=== PATIENT | female | born 1975 | race Caucasian/White ===

== ENCOUNTER 2016-02-12 20:59 | Emergency (ER) | payer OTHER ==
[~2016-02-12] VITALS: Ht 157.5 cm; Wt 38.5 kg
[~2016-02-12 20:59] MED LIST: CLON0.5T PO; GABA100C4 PO; LACT PO; METR-1 PO; OXYC1TAB63 PO; PROT40TA PO; PROZ20CA11 PO; REGL10TA5 PO; TRAZ50TA12 PO; VANC125C3 PO; VENTAER INH; ZOFR4TAB3 SL
[2016-02-12 21:02] VITALS: BP 115/82; PULSE 83; RESP 18; TEMP 97.8; O2SAT 100
[2016-02-12 21:16] LABS: BLOOD, URINE NEG (NEG); GLUCOSE,URINE NEG (NEG); KETONE, URINE NEG (NEG); NITRITE,URINE NEG (NEG)
[2016-02-12 21:17] LABS: URINE COLOR STRAW (YELLW/STRAW)
[2016-02-12 21:21] LABS: COMMENT (UR) CULT NOT INDICATED; CULTURE IF INDICATED CULT NOT INDICATED; RBC, URINE 0-2 /hpf (0-3); SQUAMOUS EPITHELIAL CELL URINE 0-5 /hpf (0-5); WBC, URINE 0-2 /hpf (0-5)
[2016-02-12] MEDS ORDERED: LIDOCAINE VISCOUS 2% SOLN 15 ML UDC PO ONE (21:45)
[2016-02-12] MEDS ORDERED: ALUMINUM/MAGNESIUM/SIMETH 30 ML CUP PO ONE (21:45)
[2016-02-12] MEDS ORDERED: DICYCLOMINE HCL 10 MG CAP PO ONE (21:45)
[2016-02-12 22:18] LABS: AUTOMATED NEUTROPHIL # 3.5 TH/MM3 (1.8-7.7); BASOPHIL # 0.3 TH/MM3 (0-0.2); BASOPHIL % 3.6 % (0.0-2.0); EOSINOPHIL # 0.5 TH/MM3 (0-0.4); EOSINOPHIL % 6.7 % (0.0-4.0); HEMATOCRIT 34.5 % (35.0-46.0); LYMPH % 39.5 % (9.0-44.0); LYMPHOCYTE # 3.2 TH/MM3 (1.0-4.8); MEAN CELL VOLUME 87.1 FL (80.0-100.0); MEAN CORPUSCULAR HEMOGLOBIN 29.7 PG (27.0-34.0); MONO % 7.7 % (0.0-8.0); NEUT % 42.5 % (16.0-70.0); PLATELET COUNT 1314 TH/MM3 (150-450); RED BLOOD COUNT 3.96 MIL/MM3 (4.00-5.30); RED CELL DISTRIBUTION WIDTH 13.9 % (11.6-17.2); WHITE BLOOD COUNT 8.1 TH/MM3 (4.0-11.0)
[2016-02-12 22:20] LABS: HEMO FLAGS AUTO DIFF
[2016-02-12 22:25] LABS: CHLORIDE 95 MEQ/L (98-107); POTASSIUM 3.4 MEQ/L (3.5-5.1); SODIUM (NA) 134 MEQ/L (136-145)
[2016-02-12 22:29] LABS: ANION GAP 9 MEQ/L (5-15); BICARBONATE 29.7 MEQ/L (21.0-32.0); BLOOD UREA NITROGEN 9 MG/DL (7-18)
--- NOTE | 2016-02-12 22:31 | RADHPO ---
EXAM DATE/TIME: 02/12/2016 22:20 [place] COMPARISON: CHEST SINGLE AP, February 06, 2016, 8:29. INDICATIONS : Patient states chest pains. MEDICAL HISTORY : Pancreatitis. Cirrhosis. Hiatal hernia. SURGICAL HISTORY : None. ENCOUNTER: Initial ACUITY: 1 day PAIN SCORE: 2/10 LOCATION: Bilateral chest FINDINGS: PA and lateral views of the chest demonstrate the lungs to be symmetrically aerated without evidence of mass, infiltrate or effusion. The cardiomediastinal contours are unremarkable. Osseous structure s are intact. Lungs are hyperexpanded. CONCLUSION: No evidence of acute cardiopulmonary disease. Charlie Oliveira MD on February 12, 2016 at 22:29 Board Certified Radiologist. This report was verified electronically.
[2016-02-12 22:32] LABS: ALT (GPT) 31 U/L (10-53); AST (GOT) 34 U/L (15-37); GLOMERULAR FILTRATION RATE 69 ML/MIN (>89)
[2016-02-12 22:34] LABS: PLATELET ESTIMATE SMEAR HIGH (NORMAL); PLATELET MORPHOLOGY NORMAL (NORMAL); SCAN/DIFF AUTO DIFF CONFIRMED; TOTAL BILIRUBIN ADULT 0.2 MG/DL (0.2-1.0)
[2016-02-12 22:35] LABS: ALKALINE PHOSPHATASE 98 U/L (45-117)
[2016-02-12] MEDS ORDERED: ONDANSETRON HCL 4 MG/2 ML VIAL IV PUSH ONE (23:00)
[2016-02-12 23:15] VITALS: BP 101/55; PULSE 75; RESP 18; O2SAT 97
[2016-02-12] MEDS ORDERED: CLOTR1%T TOPICAL (23:40)
[2016-02-12] MEDS ORDERED: DIFL150T PO (23:40)
--- NOTE | 2016-02-12 23:40 | PD ---
HPI Chief Complaint: Complaint Time Seen by Provider: 21:19 Travel History International Travel<30 days: No Contact w/Intl Traveler<30days: No Traveled to known affect area: No History of Present Illness HPI Patient is a 40-year-old female who comes in complaining of dysuria as well as vaginal itching. She is concerned she might have a UTI versus a yeast infection. She does have prolonged hospital course at the end of January for sepsis. She says that since she has been home she has experienced these vaginal /urinary symptoms. She denies fever or chills. She does complain of some continued chest pain and abdominal pain, which she has had since being in the hospital. She denies any shortness of breath. She is on Flagyl for C. difficile. She tried to follow-up with a primary care doctor today but had some issues with insurance. PFSH Past Medical History Hx Anticoagulant Therapy: No Anemia: Yes Arthritis: Yes Asthma: No Blood Disorders: No Bipolar Disorder: Yes Anxiety: Yes Depression: Yes Heart Rhythm Problems: No Cancer: No Cardiovascular Problems: No High Cholesterol: No Chemotherapy: No Chest Pain: No Congestive Heart Failure: No Cirrhosis: Yes (DX WITH FATTY LIVER 10-15 YEARS AGO) COPD: No Cerebrovascular Accident: No Developmental Delay: No Diabetes: No Diminished Hearing: No Endocrine: No Gastrointestinal Disorders: Yes (DELAYED GASTRIC EMPTYING, C-DIFF) GERD: Yes Genitourinary: No Hiatal Hernia: Yes Hypertension: No Immune Disorder: No Implanted Vascular Access Dvce: No Insomnia: Yes Kidney Stones: No Medical other: Yes (SEPSIS 2015) Musculoskeletal: No Neurologic: No Psychiatric: Yes Reproductive: No Respiratory: Yes (PNEUMONIA) Integumentary: Yes (07/2010- MRSA TO BILATERAL ARMS) Immunizations Current: Yes Migraines: Yes Myocardial Infarction: No Pancreatitis: Yes Radiation Therapy: No Renal Failure: No Seizures: No Sleep Apnea: No Thyroid Disease: No Ulcer: Yes Influenza Vaccination: No ?: Not LMP: ONE YEAR IUD : 3 Para: 1 Miscarriage: 1 : 1 Past Surgical History AICD: No Arteriovenous Shunt: No Cardiac Surgery: No Eye Surgery: Yes (PT STATES SHE HAD EYE SURGERY FOR "LAZY EYE" WHEN SHE WAS 3 YEARS OLD.) Hysterectomy: No Insulin Pump: No Joint Replacement: No Neurologic Surgery: No Pacemaker: No Thoracic Surgery: No Social History Alcohol Use: No (QUIT 01/11/16) Tobacco Use: Yes (QUIT 01/26/16 IS ON "THE PATCH") Substance Use: Yes (ETOH) Allergies-Medications (Allergen,Severity, Reaction): Coded Allergies: [place] (Verified Allergy, Severe, Seizures, 02/12/16) Morphine (Verified Adverse Reaction, Severe, Hives, 02/12/16) *MDRO Multi-Drug Resistant Organism (Verified Adverse Reaction, Unknown, Cleared 01/12/16, 02/12/16) MRSA (skin) - 07/2010 MRSA PCR Screens NEGATIVE - 12/10/15 & 01/12/16 Cleared per Infection Control Reported Meds & Prescriptions Reported Meds & Active Scripts Active Clotrimazole Topical (Clotrimazole) 1% Soln 1 Applic TOPICAL BID Diflucan (Fluconazole) 150 Mg Tab 150 Mg PO ONCE Flagyl (Metronidazole) 500 Mg Tab 500 Mg PO QID Ventolin Hfa 18 GM Inh (Albuterol Sulfate) 90 Mcg/Act Aer 1 Puff INH Q4H PRN Oxycodone-Acetaminophen 5-325 mg Tab 1 Tab PO Q4H PRN Vancomycin (Vancomycin HCl) 125 Mg Cap 125 Mg PO QID 14 Days Acidophilus/l-Sporogenes (Lactobacillus Acidophilus) 1 Tab Tab 1 Tab PO TID Zofran Odt (Ondansetron Odt) 4 Mg Tab 4 Mg SL Q6HR PRN Reglan (Metoclopramide HCl) 10 Mg Tab 10 Mg PO TIDAC 30 Days Gabapentin 100 Mg Cap 100 Mg PO TID Trazodone (Trazodone HCl) 50 Mg Tab 150 Mg PO HS PRN Reported Prozac (Fluoxetine HCl) 20 Mg Cap 40 Mg PO DAILY Clonazepam 0.5 Mg Tab 0.5 Mg PO TID PRN Protonix (Pantoprazole Sodium) 40 Mg Tab 40 Mg PO DAILY Review of Systems Except as stated in HPI: all other systems reviewed are Neg General / Constitutional: No: Fever, Chills HENT: No: Headaches, Lightheadedness Cardiovascular: Positive: Chest Pain or Discomfort Respiratory: No: Shortness of Breath Gastrointestinal: Positive: Abdominal Pain, No: Nausea, Vomiting Genitourinary: Positive: Dysuria, No: Flank Pain Skin: No Rash, No Change in Pigmentation Neurologic: No: Weakness, Dizziness Physical Exam Narrative GENERAL: Awake and alert in no acute distress. SKIN: Warm and dry. HEAD: Atraumatic. Normocephalic. EYES: Pupils equal and round. No scleral icterus. ENT: Mucous membranes pink and moist. NECK: Trachea midline. No JVD. CARDIOVASCULAR: Regular rate and rhythm. No murmur appreciated. RESPIRATORY: No accessory muscle use. Clear to auscultation. Breath sounds equal bilaterally. GASTROINTESTINAL: Abdomen soft, nondistended. Tender to palpation in midepigastric area. No rebound or guarding. PELVIC: Performed with female ed special education teacher. Skin surrounding the vagina has satellite lesions. No CMT. No discharge. MUSCULOSKELETAL: No obvious deformities. No clubbing. No cyanosis. No edema. NEUROLOGICAL: Awake and alert. No obvious cranial nerve deficits. Motor grossly within normal limits. Normal speech. PSYCHIATRIC: Appropriate mood and affect; insight and judgment normal. Data Data Last Documented VS Vital Signs Date Time Temp Pulse Resp B/P Pulse Ox O2 Delivery O2 Flow Rate FiO2 02/12/16 23:15 75 18 101/55 97 Room Air 02/12/16 21:02 97.8 Orders Urinalysis - C+S If Indicated (02/12/16 21:08) Complete Blood Count With Diff (02/12/16 21:33) Comprehensive Metabolic Panel (02/12/16 21:33) Electrocardiogram (02/12/16 ) Chest, Pa & Lat (02/12/16 ) Dicyclomine (Bentyl) (02/12/16 21:45) Al-Mag Hy-Si 40-40-4 Mg/Ml Liq (Mag-Al P (02/12/16 21:45) Lidocaine 2% Viscous (Xylocaine 2% Visco (02/12/16 21:45) Troponin I (02/12/16 21:33) Ondansetron Inj (Zofran Inj) (02/12/16 23:00) Labs Laboratory Tests Test 02/12/16 02/12/16 21:10 21:51 Urine Color STRAW Urine Turbidity CLEAR Urine pH 7.0 Urine Specific [place] 1.004 Urine Protein NEG mg/dL Urine Glucose (UA) NEG mg/dL Urine Ketones NEG mg/dL Urine Occult Blood NEG Urine Nitrite NEG Urine Bilirubin NEG Urine Leukocyte Esterase NEG Urine RBC 0-2 /hpf Urine WBC 0-2 /hpf Urine Squamous Epithelial 0-5 /hpf Cells Urine Bacteria NONE /hpf Microscopic Urinalysis Comment CULT NOT INDICATED White Blood Count 8.1 TH/MM3 Red Blood Count 3.96 MIL/MM3 Hemoglobin 11.7 GM/DL Hematocrit 34.5 % Mean Corpuscular Volume 87.1 FL Mean Corpuscular Hemoglobin 29.7 PG Mean Corpuscular Hemoglobin 34.0 % Concent Red Cell Distribution Width 13.9 % Platelet Count 1314 TH/MM3 Mean Platelet Volume 7.3 FL Neutrophils (%) (Auto) 42.5 % Lymphocytes (%) (Auto) 39.5 % Monocytes (%) (Auto) 7.7 % Eosinophils (%) (Auto) 6.7 % Basophils (%) (Auto) 3.6 % Neutrophils # (Auto) 3.5 TH/MM3 Lymphocytes # (Auto) 3.2 TH/MM3 Monocytes # (Auto) 0.6 TH/MM3 Eosinophils # (Auto) 0.5 TH/MM3 Basophils # (Auto) 0.3 TH/MM3 CBC Comment AUTO DIFF Differential Comment AUTO DIFF CONFIRMED Platelet Estimate HIGH Platelet Morphology Comment NORMAL Red Cell Morphology Comment NORMAL Sodium Level 134 MEQ/L Potassium Level 3.4 MEQ/L Chloride Level 95 MEQ/L Carbon Dioxide Level 29.7 MEQ/L Anion Gap 9 MEQ/L Blood Urea Nitrogen 9 MG/DL Creatinine 0.90 MG/DL Estimat Glomerular Filtration 69 ML/MIN Rate Random Glucose 94 MG/DL Calcium Level 8.8 MG/DL Total Bilirubin 0.2 MG/DL Aspartate Amino Transf 34 U/L (AST/SGOT) Alanine Aminotransferase 31 U/L (ALT/SGPT) Alkaline Phosphatase 98 U/L Troponin I LESS THAN 0.02 NG/ML Total Protein 7.8 GM/DL Albumin 3.5 GM/DL [facility] Medical Decision Making Medical Screen Exam Complete: Yes Emergency Medical Condition: Yes Medical Record Reviewed: Yes Differential Diagnosis UTI versus candidiasis versus pneumonia versus GERD Narrative Course Patient is a 40-year-old female comes in complaining of dysuria as well as vaginal irritation. Exam shows looks like vaginal yeast infection. Patient also has symptoms that have continued since her hospitalization including chest pain and abdominal pain. Labs sent show an elevated platelet count, which seems to have been going up since her hospitalization. She has no elevation in her white blood cells. Chest x-ray shows no acute abnormalities. Urinalysis is negative for UTI. Pain medicine, Zofran. She reports feeling better. We'll discharge with prescriptions for Diflucan as well as clotrimazole. Patient advised follow-up with primary care. Advised of her elevated platelet count. She is comfortable discharge at this time. Diagnosis Primary Impression: Yeast vaginitis Patient Instructions: General Instructions, Vulvovaginal Candidiasis (ED) Additional Instructions: Follow up with your doctor. Your platelets were very elevated today and it looks like your platelet count has been trending up since your admission. Follow up with your primary care doctor regarding this. Return to the ED at any time if you have any worsening symptoms. Scripts Clotrimazole Topical 1% Soln1 Applic TOPICAL BID #10 ML Ref 0 Prov:Christine Lamar MD 02/12/16 Fluconazole (Diflucan)150 Mg [id number] Mg PO ONCE #1 TAB Ref 0 Prov:Christine Lamar MD 02/12/16 Disposition: 01 DISCHARGE HOME Condition: Stable Christine Lamar MD Feb 12, 2016 23:40
--- NOTE | 2016-02-13 14:29 | EKG ---
Date Performed: 02/12/2016 Time Performed: 21:50:34 PTAGE: 40 years EKG: Sinus rhythm Normal ECG PREVIOUS TRACING : 01/14/2016 14.33 Since previous tracing, no significant change noted DOCTOR: Maribell Rivas Interpretating Date/Time 02/13/2016 14:22:50
[2016-03-27] MEDS ORDERED: TIZA2TAB PO (15:24)
== END 2016-02-12 23:55 | disposition home or self-care (01) ==
LOC: PHED 20:59
DX: B37.3 Candidiasis of vulva and vagina (principal); D64.9 Anemia, unspecified; D72.829 Elevated white blood cell count, unspecified
CPT/HCPCS: 71020; 80053; 81001; 84484; 85025; 93005; 99284; J2405

== ENCOUNTER 2016-03-18 14:50 | Emergency (ER) | payer OTHER ==
[2016-03-18] VITALS (8 sets, daily range): BP systolic 91–119; BP diastolic 57–85; PULSE 82–110; RESP 12–28; TEMP 98.4; O2SAT 92–99
[~2016-03-18] VITALS: Ht 157.5 cm; Wt 41.5 kg
[~2016-03-18 14:50] MED LIST changes: +CLOTR1%T TOPICAL; +DIFL150T PO
[2016-03-18] MEDS ORDERED: SODIUM CHLORIDE 0.9% FLUSH 5 ML FLUSH IVF PRN (15:15)
[2016-03-18] MEDS ORDERED: SODIUM CHLOR 0.9% 1000 ML INJ 1,000 ML IV ONE ×2 (15:15)
[2016-03-18 15:36] LABS: AUTOMATED NEUTROPHIL # 2.2 TH/MM3 (1.8-7.7); BASOPHIL # 0.1 TH/MM3 (0-0.2); BASOPHIL % 2.3 % (0.0-2.0); EOSINOPHIL # 0.3 TH/MM3 (0-0.4); EOSINOPHIL % 5.2 % (0.0-4.0); HEMATOCRIT 34.3 % (35.0-46.0); HEMO FLAGS DIFF FINAL; LYMPH % 48.6 % (9.0-44.0); LYMPHOCYTE # 3.1 TH/MM3 (1.0-4.8); MEAN CELL VOLUME 86.5 FL (80.0-100.0); MEAN CORPUSCULAR HEMOGLOBIN 28.9 PG (27.0-34.0); MEAN CORPUSCULAR HGB CONC 33.4 % (32.0-36.0); MONO % 8.1 % (0.0-8.0); NEUT % 35.8 % (16.0-70.0); PLATELET COUNT 478 TH/MM3 (150-450); RED BLOOD COUNT 3.97 MIL/MM3 (4.00-5.30); RED CELL DISTRIBUTION WIDTH 14.3 % (11.6-17.2); WHITE BLOOD COUNT 6.2 TH/MM3 (4.0-11.0)
[2016-03-18 16:03] LABS: ALKALINE PHOSPHATASE 68 U/L (45-117); ALT (GPT) 45 U/L (10-53); ANION GAP 9 MEQ/L (5-15); AST (GOT) 50 U/L (15-37); BETA HCG QUANT LESS THAN 1 MIU/ML (0-5); BICARBONATE 34.1 MEQ/L (21.0-32.0); BLOOD UREA NITROGEN 4 MG/DL (7-18); CHLORIDE 93 MEQ/L (98-107); GLOMERULAR FILTRATION RATE 54 ML/MIN (>89); SODIUM (NA) 136 MEQ/L (136-145); TOTAL BILIRUBIN ADULT 0.3 MG/DL (0.2-1.0)
--- NOTE | 2016-03-18 16:18 | PD ---
HPI Chief Complaint: OD/ Ingestion Time Seen by Provider: 15:00 Travel History International Travel<30 days: No Contact w/Intl Traveler<30days: No Traveled to known affect area: No History of Present Illness HPI Patient is a 40-year-old female brought to ER by her fianc for evaluation of possible drug overdose. Reports that she isn't alcoholic, has been sober for a while. Reports that he came home and found out that she "fell off of bandwagon " and began drinking again. Patient reports that she drinks 6 little bottles of miniature vodka. reports that she also took a few Flexeril pills as well for her chronic back pain. Patient told her fiance that she may have overdosed on them and taken around 10 pills. Patient unsure how many tabs she took today. Patient denies suicidal or homicidal placed at this time. Patient with no complaints. PFSH Past Medical History Hx Anticoagulant Therapy: No Anemia: Yes Arthritis: Yes Asthma: No Blood Disorders: No Bipolar Disorder: Yes Anxiety: Yes Depression: Yes Heart Rhythm Problems: No Cancer: No Cardiovascular Problems: No High Cholesterol: No Chemotherapy: No Chest Pain: No Congestive Heart Failure: No Cirrhosis: Yes (DX WITH FATTY LIVER 10-15 YEARS AGO) COPD: No Cerebrovascular Accident: No Developmental Delay: No Diabetes: No Diminished Hearing: No Endocrine: No Gastrointestinal Disorders: Yes (DELAYED GASTRIC EMPTYING, C-DIFF) GERD: Yes Genitourinary: No Hiatal Hernia: Yes Hypertension: No Immune Disorder: No Implanted Vascular Access Dvce: No Insomnia: Yes Kidney Stones: No Musculoskeletal: No Neurologic: No Psychiatric: Yes Reproductive: No Respiratory: Yes (PNEUMONIA) Integumentary: Yes (07/2010- MRSA TO BILATERAL ARMS) Immunizations Current: Yes Migraines: Yes Myocardial Infarction: No Pancreatitis: Yes Radiation Therapy: No Renal Failure: No Seizures: No Sleep Apnea: No Thyroid Disease: No Ulcer: Yes ?: Not LMP: IUD : 3 Para: 1 Miscarriage: 1 : 1 Past Surgical History AICD: No Arteriovenous Shunt: No Cardiac Surgery: No Eye Surgery: Yes (PT STATES SHE HAD EYE SURGERY FOR "LAZY EYE" WHEN SHE WAS 3 YEARS OLD.) Hysterectomy: No Insulin Pump: No Joint Replacement: No Neurologic Surgery: No Pacemaker: No Thoracic Surgery: No Social History Alcohol Use: No (QUIT 01/11/16) Tobacco Use: Yes (QUIT 01/26/16 IS ON "THE PATCH") Substance Use: Yes (ETOH) Allergies-Medications (Allergen,Severity, Reaction): Coded Allergies: [place] (Verified Allergy, Severe, Seizures, 02/12/16) Morphine (Verified Adverse Reaction, Severe, Hives, 02/12/16) *MDRO Multi-Drug Resistant Organism (Verified Adverse Reaction, Unknown, Cleared 01/12/16, 02/12/16) MRSA (skin) - 07/2010 MRSA PCR Screens NEGATIVE - 12/10/15 & 01/12/16 Cleared per Infection Control Reported Meds & Prescriptions Reported Meds & Active Scripts Active Clotrimazole Topical (Clotrimazole) 1% Soln 1 Applic TOPICAL BID Diflucan (Fluconazole) 150 Mg Tab 150 Mg PO ONCE Flagyl (Metronidazole) 500 Mg Tab 500 Mg PO QID Ventolin Hfa 18 GM Inh (Albuterol Sulfate) 90 Mcg/Act Aer 1 Puff INH Q4H PRN Oxycodone-Acetaminophen 5-325 mg Tab 1 Tab PO Q4H PRN Vancomycin (Vancomycin HCl) 125 Mg Cap 125 Mg PO QID 14 Days Acidophilus/l-Sporogenes (Lactobacillus Acidophilus) 1 Tab Tab 1 Tab PO TID Zofran Odt (Ondansetron Odt) 4 Mg Tab 4 Mg SL Q6HR PRN Reglan (Metoclopramide HCl) 10 Mg Tab 10 Mg PO TIDAC 30 Days Gabapentin 100 Mg Cap 100 Mg PO TID Trazodone (Trazodone HCl) 50 Mg Tab 150 Mg PO HS PRN Reported Prozac (Fluoxetine HCl) 20 Mg Cap 40 Mg PO DAILY Clonazepam 0.5 Mg Tab 0.5 Mg PO TID PRN Protonix (Pantoprazole Sodium) 40 Mg Tab 40 Mg PO DAILY Review of Systems General / Constitutional: No: Fever Eyes: No: Visual changes HENT: No: Headaches Cardiovascular: No: Chest Pain or Discomfort Respiratory: No: Shortness of Breath Gastrointestinal: No: Abdominal Pain Genitourinary: No: Dysuria Musculoskeletal: No: Pain Skin: No Rash Neurologic: No: Weakness Psychiatric: No: Depression, Suicidal Ideations, Homicidal Ideation Endocrine: No: Polydipsia Hematologic/Lymphatic: No: Easy Bruising Physical Exam Narrative GENERAL: nad, nontoxic SKIN: Warm and dry. HEAD: Atraumatic. Normocephalic. EYES: Pupils pinpoint. No scleral icterus. No injection or drainage. ENT: No nasal bleeding or discharge. Mucous membranes pink and moist. NECK: Trachea midline. No JVD. CARDIOVASCULAR: Regular rate and rhythm. No murmur appreciated. RESPIRATORY: No accessory muscle use. Clear to auscultation. Breath sounds equal bilaterally. GASTROINTESTINAL: Abdomen soft, non-tender, nondistended. Hepatic and splenic margins not palpable. MUSCULOSKELETAL: No obvious deformities. No clubbing. No cyanosis. No edema. NEUROLOGICAL: Awake and alert. No obvious cranial nerve deficits. Motor grossly within normal limits. Normal speech. PSYCHIATRIC: Appropriate mood and affect; insight and judgment normal. Data Data Last Documented VS Vital Signs Date Time Temp Pulse Resp B/P Pulse Ox O2 Delivery O2 Flow Rate FiO2 03/18/16 18:40 100 12 91/57 96 Room Air 03/18/16 15:30 98.4 Orders Complete Blood Count With Diff (03/18/16 15:11) Comprehensive Metabolic Panel (03/18/16 15:11) Urinalysis - C+S If Indicated (03/18/16 15:11) Electrocardiogram (03/18/16 15:11) Oximetry (03/18/16 15:11) Iv Access Insert/Monitor (03/18/16 15:11) Ecg Monitoring (03/18/16 15:11) Beta Hcg (Quant/Titer) (03/18/16 15:11) Psych Screen (03/18/16 15:11) Sodium Chloride 0.9% Flush (Ns Flush) (03/18/16 15:15) Sodium Chlor 0.9% 1000 Ml Inj (Ns 1000 M (03/18/16 15:15) Sodium Chlor 0.9% 1000 Ml Inj (Ns 1000 M (03/18/16 15:15) Alcohol (Ethanol) (03/18/16 16:23) Drug Screen, Random Urine (03/18/16 16:23) Tylenol (Acetaminophen) (03/18/16 16:23) Salicylates (Aspirin) (03/18/16 16:23) Urinary Catheter Insert/Apply (03/18/16 17:28) Potassium Cl 40 Meq/30 Ml Liq (Kcl 40 Me (03/18/16 17:45) Labs Laboratory Tests Test 03/18/16 03/18/16 15:24 16:30 White Blood Count 6.2 TH/MM3 Red Blood Count 3.97 MIL/MM3 Hemoglobin 11.5 GM/DL Hematocrit 34.3 % Mean Corpuscular Volume 86.5 FL Mean Corpuscular Hemoglobin 28.9 PG Mean Corpuscular Hemoglobin 33.4 % Concent Red Cell Distribution Width 14.3 % Platelet Count 478 TH/MM3 Mean Platelet Volume 7.2 FL Neutrophils (%) (Auto) 35.8 % Lymphocytes (%) (Auto) 48.6 % Monocytes (%) (Auto) 8.1 % Eosinophils (%) (Auto) 5.2 % Basophils (%) (Auto) 2.3 % Neutrophils # (Auto) 2.2 TH/MM3 Lymphocytes # (Auto) 3.1 TH/MM3 Monocytes # (Auto) 0.5 TH/MM3 Eosinophils # (Auto) 0.3 TH/MM3 Basophils # (Auto) 0.1 TH/MM3 CBC Comment DIFF FINAL Differential Comment Sodium Level 136 MEQ/L Potassium Level 2.7 MEQ/L Chloride Level 93 MEQ/L Carbon Dioxide Level 34.1 MEQ/L Anion Gap 9 MEQ/L Blood Urea Nitrogen 4 MG/DL Creatinine 1.10 MG/DL Estimat Glomerular Filtration 54 ML/MIN Rate Random Glucose 120 MG/DL Calcium Level 8.6 MG/DL Total Bilirubin 0.3 MG/DL Aspartate Amino Transf 50 U/L (AST/SGOT) Alanine Aminotransferase 45 U/L (ALT/SGPT) Alkaline Phosphatase 68 U/L Total Protein 7.4 GM/DL Albumin 3.9 GM/DL Human Chorionic Gonadotropin, LESS THAN 1 Quant MIU/ML Salicylates Level LESS THAN 1.7 MG/DL Acetaminophen Level LESS THAN 2.0 MCG/ML Ethyl Alcohol Level 210 MG/DL Urine Collection Type CATH Urine Color STRAW Urine Turbidity CLEAR Urine pH 7.0 Urine Specific [place] 1.004 Urine Protein NEG mg/dL Urine Glucose (UA) NEG mg/dL Urine Ketones NEG mg/dL Urine Occult Blood NEG Urine Nitrite NEG Urine Bilirubin NEG Urine Leukocyte Esterase NEG Urine Squamous Epithelial 0-5 /hpf Cells Microscopic Urinalysis Comment CATH-CULT NOT IND Urine Opiates Screen NEG Urine Barbiturates Screen NEG Urine Amphetamines Screen NEG Urine Benzodiazepines Screen NEG Urine Cocaine Screen NEG Urine Cannabinoids Screen NEG MDM Medical Decision Making Medical Screen Exam Complete: Yes Emergency Medical Condition: Yes Interpretation(s) EKG at 1518: Normal sinus rhythm at 70 bpm, QT/QTc 404/435, no acute st or t wave changes Vital Signs Date Time Temp Pulse Resp B/P Pulse Ox O2 Delivery O2 Flow Rate FiO2 03/18/16 15:00 87 14 Vital Signs Date Time Temp Pulse Resp B/P Pulse Ox O2 Delivery O2 Flow Rate FiO2 03/18/16 15:00 87 14 Differential Diagnosis Alcohol intoxication, drug overdose, bipolar disorder, electrolyte abnormalities Narrative Course Patient is a 40-year-old female who presents to emergency room with complaints of acute alcohol intoxication with possible drug overdose. Patient reports that she thinks that she may taken around 10 Flexeril tabs one hour prior to presentation to the emergency room. Patient adamantly denies SI or HI. Patient was placed on cardiac/vascular sonographer upon arrival to his room. EKG obtained. Labs as well as tox screens ordered. We'll give patient IV fluids and monitor her. RN did call poison control and reviewed case, patient will need to be observed for 6-8 hours prior to dispo of patient pt with no si/hi, once patient sober, will re-evaluate if there is need to psychiatric screening. Patient adamantly denies suicidal or homicidal evaluation. Laney reports that patient did not make any homicidal threats today. pt sleeping at this time, no distress pt signed out to care of dr stovall at change of shift Diagnosis Primary Impression: Alcohol intoxication Qualified Code: F10.120 - Alcohol intoxication, uncomplicated Additional Impressions: drug overdose Accidental drug overdose Qualified Code: T50.901A - Accidental drug overdose, initial encounter Hypokalemia Verónica Calderon DO Mar 18, 2016 16:18
[2016-03-18 16:26] LABS: POTASSIUM 2.7 MEQ/L (3.5-5.1)
[2016-03-18 17:08] LABS: AMPHETAMINE, URINE NEG (NEG); BARBITURATES, URINE NEG (NEG); COCAINE, URINE NEG (NEG)
[2016-03-18 17:09] LABS: BLOOD, URINE NEG (NEG); GLUCOSE,URINE NEG (NEG); KETONE, URINE NEG (NEG); NITRITE,URINE NEG (NEG)
[2016-03-18 17:21] LABS: METHOD OF COLLECTION CATH; URINE COLOR STRAW (YELLW/STRAW)
[2016-03-18 17:24] LABS: SQUAMOUS EPITHELIAL CELL URINE 0-5 /hpf (0-5)
[2016-03-18 17:25] LABS: COMMENT (UR) CATH-CULT NOT IND; CULTURE IF INDICATED CATH CULTURE NOT IND
[2016-03-18] MEDS ORDERED: POTASSIUM CL 40 MEQ/30 ML LIQ UDC PO ONE (17:45)
--- NOTE | 2016-03-18 20:11 | PD ---
Physical Exam Time Seen by Provider: 20:08 Narrative The patient was left to me by Dr. Calderon to observe until the patient can safely be discharged. It is now 8:09 PM and the patient is still too lethargic to discharge. We will do a magnesium level. We will try to correct the potassium level with IV potassium. We will continue to hydrate the patient. Data Data Last Documented VS Vital Signs Date Time Temp Pulse Resp B/P Pulse Ox O2 Delivery O2 Flow Rate FiO2 03/19/16 05:11 83 17 111/70 98 Room Air 03/18/16 15:30 98.4 Orders Complete Blood Count With Diff (03/18/16 15:11) Comprehensive Metabolic Panel (03/18/16 15:11) Urinalysis - C+S If Indicated (03/18/16 15:11) Electrocardiogram (03/18/16 15:11) Oximetry (03/18/16 15:11) Iv Access Insert/Monitor (03/18/16 15:11) Ecg Monitoring (03/18/16 15:11) Beta Hcg (Quant/Titer) (03/18/16 15:11) Psych Screen (03/18/16 15:11) Sodium Chloride 0.9% Flush (Ns Flush) (03/18/16 15:15) Sodium Chlor 0.9% 1000 Ml Inj (Ns 1000 M (03/18/16 15:15) Sodium Chlor 0.9% 1000 Ml Inj (Ns 1000 M (03/18/16 15:15) Alcohol (Ethanol) (03/18/16 16:23) Drug Screen, Random Urine (03/18/16 16:23) Tylenol (Acetaminophen) (03/18/16 16:23) Salicylates (Aspirin) (03/18/16 16:23) Urinary Catheter Insert/Apply (03/18/16 17:28) Potassium Cl 40 Meq/30 Ml Liq (Kcl 40 Me (03/18/16 17:45) Ns + Kcl 40 Meq Inj (Ns + Kcl 40 Meq Inj (03/18/16 20:15) Magnesium (Mg) (03/18/16 15:24) Ondansetron Inj (Zofran Inj) (03/19/16 05:15) Group A Rapid Strep Screen (03/19/16 05:06) Strep Culture (Group A) (03/19/16 05:08) Labs Laboratory Tests Test 03/18/16 03/18/16 15:24 16:30 White Blood Count 6.2 TH/MM3 Red Blood Count 3.97 MIL/MM3 Hemoglobin 11.5 GM/DL Hematocrit 34.3 % Mean Corpuscular Volume 86.5 FL Mean Corpuscular Hemoglobin 28.9 PG Mean Corpuscular Hemoglobin 33.4 % Concent Red Cell Distribution Width 14.3 % Platelet Count 478 TH/MM3 Mean Platelet Volume 7.2 FL Neutrophils (%) (Auto) 35.8 % Lymphocytes (%) (Auto) 48.6 % Monocytes (%) (Auto) 8.1 % Eosinophils (%) (Auto) 5.2 % Basophils (%) (Auto) 2.3 % Neutrophils # (Auto) 2.2 TH/MM3 Lymphocytes # (Auto) 3.1 TH/MM3 Monocytes # (Auto) 0.5 TH/MM3 Eosinophils # (Auto) 0.3 TH/MM3 Basophils # (Auto) 0.1 TH/MM3 CBC Comment DIFF FINAL Differential Comment Sodium Level 136 MEQ/L Potassium Level 2.7 MEQ/L Chloride Level 93 MEQ/L Carbon Dioxide Level 34.1 MEQ/L Anion Gap 9 MEQ/L Blood Urea Nitrogen 4 MG/DL Creatinine 1.10 MG/DL Estimat Glomerular Filtration 54 ML/MIN Rate Random Glucose 120 MG/DL Calcium Level 8.6 MG/DL Magnesium Level 2.4 MG/DL Total Bilirubin 0.3 MG/DL Aspartate Amino Transf 50 U/L (AST/SGOT) Alanine Aminotransferase 45 U/L (ALT/SGPT) Alkaline Phosphatase 68 U/L Total Protein 7.4 GM/DL Albumin 3.9 GM/DL Human Chorionic Gonadotropin, LESS THAN 1 Quant MIU/ML Salicylates Level LESS THAN 1.7 MG/DL Acetaminophen Level LESS THAN 2.0 MCG/ML Ethyl Alcohol Level 210 MG/DL Urine Collection Type CATH Urine Color STRAW Urine Turbidity CLEAR Urine pH 7.0 Urine Specific [place] 1.004 Urine Protein NEG mg/dL Urine Glucose (UA) NEG mg/dL Urine Ketones NEG mg/dL Urine Occult Blood NEG Urine Nitrite NEG Urine Bilirubin NEG Urine Leukocyte Esterase NEG Urine Squamous Epithelial 0-5 /hpf Cells Microscopic Urinalysis Comment CATH-CULT NOT IND Urine Opiates Screen NEG Urine Barbiturates Screen NEG Urine Amphetamines Screen NEG Urine Benzodiazepines Screen NEG Urine Cocaine Screen NEG Urine Cannabinoids Screen NEG [facility] Medical Record Reviewed: Yes Supervised Visit with TD: Yes Interpretation(s) The strep screen is negative for group A strep antigen. Differential Diagnosis Alcohol intoxication, Flexeril overdose, suicide attemptpatient denies Narrative Course It is now 8:09 PM and the patient is too lethargic to discharge. We will give the patient potassium, possibly magnesium, and hydrate the patient. It is now 0500 in the morning and the patient is now alert and able to walk almost normally. She can be discharged at this time. She is nauseated slightly and will be given some Zofran IV. She is to discontinue alcohol and all drugs for pain including muscle relaxants. The patient now complains of a sore throat. Her throat is slightly red and swollen and a throat culture will be done. Diagnosis Primary Impression: Alcohol intoxication Qualified Code: F10.120 - Alcohol intoxication, uncomplicated Additional Impressions: Accidental drug overdose Qualified Code: T50.901A - Accidental drug overdose, initial encounter Hypokalemia drug overdose Viral pharyngitis Ruled Out: Strep pharyngitis Disposition: DISCHARGE HOME Condition: Stable Huey Blanco MD Mar 18, 2016 20:10
[2016-03-18] MEDS: NS + KCL 40 MEQ INJ 1,000 ML IV SCH (20:19)
[2016-03-18 20:35] LABS: MAGNESIUM 2.4 MG/DL (1.5-2.5)
[2016-03-19 00:05] VITALS: BP 109/77; PULSE 83; RESP 16; O2SAT 99
[2016-03-19 03:35] VITALS: BP 100/70; PULSE 83; RESP 16; O2SAT 98
[2016-03-19] MEDS: NS + KCL 40 MEQ INJ 1,000 ML IV SCH (05:08)
[2016-03-19 05:11] VITALS: BP 111/70; PULSE 83; RESP 17; O2SAT 98
[2016-03-19] MEDS ORDERED: ONDANSETRON HCL 4 MG/2 ML VIAL IV ONE (05:15)
[2016-03-19 05:50] VITALS: BP 112/70; TEMP 97.9
--- NOTE | 2016-03-20 08:53 | EKG ---
Date Performed: 03/18/2016 Time Performed: 15:18:58 PTAGE: 40 years EKG: Sinus rhythm Normal ECG PREVIOUS TRACING : 02/12/2016 21.50 Since previous tracing, no significant change noted DOCTOR: Eugenio Caldwell Interpretating Date/Time 03/20/2016 08:52:17
[2016-03-27] MEDS ORDERED: TIZA2TAB PO (15:24)
== END 2016-03-19 05:49 | disposition home or self-care (01) ==
LOC: PHED 14:50
DX: F10.220 Alcohol dependence with intoxication, uncomplicated (principal); T50.901A Poisoning by unspecified drugs, medicaments and biological substances, accidental (unintentional), initial encounter; E87.6 Hypokalemia; R07.0 Pain in throat; Y90.7 Blood alcohol level of 200-239 mg/100 ml; F41.8 Other specified anxiety disorders; F31.9 Bipolar disorder, unspecified; K76.0 Fatty (change of) liver, not elsewhere classified
CPT/HCPCS: 51702; 80053; 80307; 80320; 81001; 83735; 84702; 85025; 87081; 87880; 93005; 96361; 96365; 96366; 96375; 99284; G0480; J2405; J3480; J7030; 80329

== ENCOUNTER 2016-03-27 14:57 | Inpatient (IN) | payer OTHER ==
[2016-03-27] VITALS (9 sets, daily range): BP systolic 81–109; BP diastolic 54–74; PULSE 60–67; RESP 14–18; TEMP 98; O2SAT 97–98
[~2016-03-27] VITALS: Ht 157.5 cm; Wt 38.4 kg
[2016-03-27] MEDS ORDERED: TIZA2TAB PO ×2 (15:24)
[2016-03-27] MEDS ORDERED: SODIUM CHLORIDE 0.9% FLUSH 5 ML FLUSH IVF PRN ×2 (15:30→22:45)
--- NOTE | 2016-03-27 15:36 | PD ---
HPI Chief Complaint: OD/ Ingestion Time Seen by Provider: 15:08 Travel History International Travel<30 days: No Contact w/Intl Traveler<30days: No Traveled to known affect area: No History of Present Illness HPI 40-year-old female with history of depression who presents the emergency department after overdose attempt. Patient had been drinking alcohol today feeling increasingly depressed and suicidal. Approximately 1 hour prior to arrival took 14 tablets of tizanidine 2 mg, and 20-30 tablets of extra strength Tylenol 500 mg in a suicide attempt. Patient feels slightly drowsy, nauseated. Has not had any episode of emesis. This is in a suicide attempt. Patient still feels depressed and suicidal. PFSH Past Medical History Hx Anticoagulant Therapy: No Anemia: Yes Arthritis: Yes Asthma: No Blood Disorders: No Bipolar Disorder: Yes Anxiety: Yes Depression: Yes Heart Rhythm Problems: No Cancer: No Cardiovascular Problems: No High Cholesterol: No Chemotherapy: No Chest Pain: No Congestive Heart Failure: No Cirrhosis: Yes (DX WITH FATTY LIVER 10-15 YEARS AGO) COPD: No Cerebrovascular Accident: No Developmental Delay: No Diabetes: No Diminished Hearing: No Endocrine: No Gastrointestinal Disorders: Yes (DELAYED GASTRIC EMPTYING,) GERD: Yes Genitourinary: No Hiatal Hernia: Yes Hypertension: No Immune Disorder: No Implanted Vascular Access Dvce: No Insomnia: Yes Kidney Stones: No Musculoskeletal: No Neurologic: No Psychiatric: Yes Reproductive: No Respiratory: Yes Integumentary: Yes (07/2010- MRSA TO BILATERAL ARMS) Immunizations Current: Yes Migraines: Yes Myocardial Infarction: No Pancreatitis: Yes Radiation Therapy: No Renal Failure: No Seizures: No Sleep Apnea: No Thyroid Disease: No Ulcer: Yes Tetanus Vaccination: < 5 Years Influenza Vaccination: No ?: Not LMP: iud : 3 Para: 1 Miscarriage: 1 : 1 Past Surgical History AICD: No Arteriovenous Shunt: No Cardiac Surgery: No Eye Surgery: Yes (PT STATES SHE HAD EYE SURGERY FOR "[employer]" WHEN SHE WAS 3 YEARS OLD.) Hysterectomy: No Insulin Pump: No Joint Replacement: No Neurologic Surgery: No Pacemaker: No Thoracic Surgery: No Social History Alcohol Use: Yes Tobacco Use: No Substance Use: Yes (ETOH) Allergies-Medications (Allergen,Severity, Reaction): Coded Allergies: [place] (Verified Allergy, Severe, Seizures, 03/27/16) Morphine (Verified Adverse Reaction, Severe, Hives, 03/27/16) *MDRO Multi-Drug Resistant Organism (Verified Adverse Reaction, Unknown, Cleared 01/12/16, 03/27/16) MRSA (skin) - 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 MRSA PCR Screens NEGATIVE - 12/10/15 & 01/12/16 Cleared per Infection Control Reported Meds & Prescriptions Reported Meds & Active Scripts Active Clotrimazole Topical (Clotrimazole) 1% Soln 1 Applic TOPICAL BID Ventolin Hfa 18 GM Inh (Albuterol Sulfate) 90 Mcg/Act Aer 1 Puff INH Q4H PRN Oxycodone-Acetaminophen 5-325 mg Tab 1 Tab PO Q4H PRN Acidophilus/l-Sporogenes (Lactobacillus Acidophilus) 1 Tab Tab 1 Tab PO TID Zofran Odt (Ondansetron Odt) 4 Mg Tab 4 Mg SL Q6HR PRN Reglan (Metoclopramide HCl) 10 Mg Tab 10 Mg PO TIDAC 30 Days Gabapentin 100 Mg Cap 100 Mg PO TID Trazodone (Trazodone HCl) 50 Mg Tab 150 Mg PO HS PRN Reported Tizanidine (Tizanidine HCl) 2 Mg Tab 2 Mg PO TID Prozac (Fluoxetine HCl) 20 Mg Cap 40 Mg PO DAILY Clonazepam 0.5 Mg Tab 0.5 Mg PO TID PRN Protonix (Pantoprazole Sodium) 40 Mg Tab 40 Mg PO DAILY Review of Systems ROS Limitations: Poor Historian Except as stated in HPI: all other systems reviewed are Neg Physical Exam Exam Limitations: Poor Historian Narrative GENERAL: Drowsy cachectic female in no acute distress SKIN: Warm and dry. HEAD:Normocephalic. EYES: Pupils equal and round. 4 mm. No scleral icterus. No injection or drainage. ENT: No nasal bleeding or discharge. Mucous membranes pink and moist. NECK: Supple CARDIOVASCULAR: Regular rate and rhythm. No murmur appreciated. RESPIRATORY: No accessory muscle use. Clear to auscultation. Breath sounds equal bilaterally. GASTROINTESTINAL: Abdomen soft, non-tender, nondistended. MUSCULOSKELETAL: No obvious deformities. No edema. NEUROLOGICAL: Awake, slightly drowsy but answers questions and follows commands without any difficulty. No obvious cranial nerve deficits. Motor grossly within normal limits. Normal speech. No clonus or rigidity PSYCHIATRIC: Press mood and affect with suicidal ideation Data Data Last Documented VS Vital Signs Date Time Temp Pulse Resp B/P Pulse Ox O2 Delivery O2 Flow Rate FiO2 03/27/16:17 66 96 Room Air 03/27/16 15:11 98.0 18 109/64 Orders Electrocardiogram (03/27/16 15:18) Complete Blood Count With Diff (03/27/16 15:18) Comprehensive Metabolic Panel (03/27/16 15:18) Iv Access Insert/Monitor (03/27/16 15:18) Ecg Monitoring (03/27/16 15:18) Oximetry (03/27/16 15:18) Psych Screen (03/27/16 15:18) Sodium Chloride 0.9% Flush (Ns Flush) (03/27/16 15:30) Drug Screen, Random Urine (03/27/16 15:18) Alcohol (Ethanol) (03/27/16 15:18) Salicylates (Aspirin) (03/27/16 15:18) Tylenol (Acetaminophen) (03/27/16 15:18) MDM Medical Decision Making Medical Screen Exam Complete: Yes Emergency Medical Condition: Yes Medical Record Reviewed: Yes Differential Diagnosis 40-year-old female with history of depression here as an overdose. Patient took up to 28 mg of tizanidine and 15 g of Tylenol approximately one hour prior to arrival. Differential includes Tylenol toxicity, benzodiazepine toxicity, alcohol intoxication, other co-ingestion, suicide attempt, depression Narrative Course Patient placed on monitor, IV established and blood obtained. A twelve-lead EKG shows sinus rhythm without notable ST abnormalities, normal intervals. QRS 80, QTC 445. CBC, CMP, aspirin, Tylenol and blood alcohol levels, urine drug screen were obtained and are pending at the time this dictation. Patient signed out to oncoming provider waiting results of same for psychiatric evaluation if medically cleared. Yoly Griffith MD Mar 27, 2016 15:36
[2016-03-27 16:01] LABS: AUTOMATED NEUTROPHIL # 3.8 TH/MM3 (1.8-7.7); BASOPHIL # 0.1 TH/MM3 (0-0.2); BASOPHIL % 1.6 % (0.0-2.0); EOSINOPHIL # 0.4 TH/MM3 (0-0.4); EOSINOPHIL % 4.7 % (0.0-4.0); HEMATOCRIT 32.4 % (35.0-46.0); HEMO FLAGS DIFF FINAL; LYMPH % 36.6 % (9.0-44.0); LYMPHOCYTE # 2.8 TH/MM3 (1.0-4.8); MEAN CELL VOLUME 86.9 FL (80.0-100.0); MEAN CORPUSCULAR HEMOGLOBIN 30.2 PG (27.0-34.0); MEAN CORPUSCULAR HGB CONC 34.7 % (32.0-36.0); NEUT % 50.1 % (16.0-70.0); PLATELET COUNT 317 TH/MM3 (150-450); RED BLOOD COUNT 3.73 MIL/MM3 (4.00-5.30); RED CELL DISTRIBUTION WIDTH 13.6 % (11.6-17.2); WHITE BLOOD COUNT 7.6 TH/MM3 (4.0-11.0)
--- NOTE | 2016-03-27 16:17 | PD ---
Physical Exam Date Seen by Provider: Mar 27, 2016 Time Seen by Provider: 16:16 Narrative The patient is a 40-year-old female who is initially evaluated by the previous physician, Dr. Griffith. Please refer to the initial history, physical, diagnostic evaluation, treatment modality plan. The patient apparently took Zanaflex and Tylenol prior to arrival, approximately 15 g of Tylenol per report. The patient had an initial Tylenol level drawn, will also need a 4 hour level Tylenol drawn at 5:30 PM. The patient did express suicidal ideation with a history of suicidal ideation. Patient was signed out of 4 PM laboratory evaluation and repeat Tylenol level pending. Patient will need psychiatric evaluation and reevaluation of her neurologic status after taking the Zanaflex prior to evaluation by psychiatry. Data Data Last Documented VS Vital Signs Date Time Temp Pulse Resp B/P Pulse Ox O2 Delivery O2 Flow Rate FiO2 03/27/16 22:36 67 16 90/58 97 Room Air 03/27/16 15:11 98.0 Orders Electrocardiogram (03/27/16 15:18) Complete Blood Count With Diff (03/27/16 15:18) Comprehensive Metabolic Panel (03/27/16 15:18) Iv Access Insert/Monitor (03/27/16 15:18) Ecg Monitoring (03/27/16 15:18) Oximetry (03/27/16 15:18) Psych Screen (03/27/16 15:18) Sodium Chloride 0.9% Flush (Ns Flush) (03/27/16 15:30) Drug Screen, Random Urine (03/27/16 15:18) Alcohol (Ethanol) (03/27/16 15:18) Salicylates (Aspirin) (03/27/16 15:18) Tylenol (Acetaminophen) (03/27/16 15:18) Tylenol (Acetaminophen) (03/27/16 17:30) Potassium Chloride Eff (K-Lyte Cl Eff) (03/27/16 16:30) Ondansetron Inj (Zofran Inj) (03/27/16 17:00) Sodium Chlor 0.9% 1000 Ml Inj (Ns 1000 M (03/27/16 18:45) Sodium Chlor 0.9% 1000 Ml Inj (Ns 1000 M (03/27/16 19:45) Sodium Chloride 0.9% Flush (Ns Flush) (03/27/16 22:45) Acetylcysteine Inj (Acetadote Inj) (03/27/16 22:45) Acetylcysteine Inj (Acetadote Inj) (03/27/16 23:45) Acetylcysteine Inj (Acetadote Inj) (03/28/16 03:45) Labs Laboratory Tests Test 03/27/16 03/27/16 15:50 21:30 White Blood Count 7.6 TH/MM3 Red Blood Count 3.73 MIL/MM3 Hemoglobin 11.3 GM/DL Hematocrit 32.4 % Mean Corpuscular Volume 86.9 FL Mean Corpuscular Hemoglobin 30.2 PG Mean Corpuscular Hemoglobin 34.7 % Concent Red Cell Distribution Width 13.6 % Platelet Count 317 TH/MM3 Mean Platelet Volume 7.3 FL Neutrophils (%) (Auto) 50.1 % Lymphocytes (%) (Auto) 36.6 % Monocytes (%) (Auto) 7.0 % Eosinophils (%) (Auto) 4.7 % Basophils (%) (Auto) 1.6 % Neutrophils # (Auto) 3.8 TH/MM3 Lymphocytes # (Auto) 2.8 TH/MM3 Monocytes # (Auto) 0.5 TH/MM3 Eosinophils # (Auto) 0.4 TH/MM3 Basophils # (Auto) 0.1 TH/MM3 CBC Comment DIFF FINAL Differential Comment Sodium Level 137 MEQ/L Potassium Level 2.6 MEQ/L Chloride Level 98 MEQ/L Carbon Dioxide Level 27.8 MEQ/L Anion Gap 11 MEQ/L Blood Urea Nitrogen 5 MG/DL Creatinine 0.99 MG/DL Estimat Glomerular Filtration 62 ML/MIN Rate Random Glucose 119 MG/DL Calcium Level 8.0 MG/DL Total Bilirubin 0.4 MG/DL Aspartate Amino Transf 40 U/L (AST/SGOT) Alanine Aminotransferase 36 U/L (ALT/SGPT) Alkaline Phosphatase 65 U/L Total Protein 6.7 GM/DL Albumin 3.6 GM/DL Salicylates Level LESS THAN 1.7 MG/DL Acetaminophen Level 16.9 MCG/ML 243.1 MCG/ML Ethyl Alcohol Level 132 MG/DL [facility] Medical Record Reviewed: Yes Supervised Visit with TD: No Interpretation(s) Laboratory Tests Test 03/27/16 03/27/16 15:50 21:30 White Blood Count 7.6 TH/MM3 Red Blood Count 3.73 MIL/MM3 Hemoglobin 11.3 GM/DL Hematocrit 32.4 % Mean Corpuscular Volume 86.9 FL Mean Corpuscular Hemoglobin 30.2 PG Mean Corpuscular Hemoglobin 34.7 % Concent Red Cell Distribution Width 13.6 % Platelet Count 317 TH/MM3 Mean Platelet Volume 7.3 FL Neutrophils (%) (Auto) 50.1 % Lymphocytes (%) (Auto) 36.6 % Monocytes (%) (Auto) 7.0 % Eosinophils (%) (Auto) 4.7 % Basophils (%) (Auto) 1.6 % Neutrophils # (Auto) 3.8 TH/MM3 Lymphocytes # (Auto) 2.8 TH/MM3 Monocytes # (Auto) 0.5 TH/MM3 Eosinophils # (Auto) 0.4 TH/MM3 Basophils # (Auto) 0.1 TH/MM3 CBC Comment DIFF FINAL Differential Comment Sodium Level 137 MEQ/L Potassium Level 2.6 MEQ/L Chloride Level 98 MEQ/L Carbon Dioxide Level 27.8 MEQ/L Anion Gap 11 MEQ/L Blood Urea Nitrogen 5 MG/DL Creatinine 0.99 MG/DL Estimat Glomerular Filtration 62 ML/MIN Rate Random Glucose 119 MG/DL Calcium Level 8.0 MG/DL Total Bilirubin 0.4 MG/DL Aspartate Amino Transf 40 U/L (AST/SGOT) Alanine Aminotransferase 36 U/L (ALT/SGPT) Alkaline Phosphatase 65 U/L Total Protein 6.7 GM/DL Albumin 3.6 GM/DL Salicylates Level LESS THAN 1.7 MG/DL Acetaminophen Level 16.9 MCG/ML 243.1 MCG/ML Ethyl Alcohol Level 132 MG/DL Differential Diagnosis Differential diagnoses includes suicidal ideation, intentional overdose, Tylenol toxicity, Zanaflex toxicity, medication side effect, depressive disorder NOS, major depression, bipolar affective disorder, mood disorder. Narrative Course The patient was initially evaluated by the previous physician, please refer to the initial history, physical, diagnostic evaluation, and treatment modality plan. The patient was signed out at 4 PM with repeat Tylenol level pending and psychiatric evaluation pending. The patient's initial Tylenol level was 16.9. The patient was drowsy but, however, was able to be awakened and answer questions. The patient states she has a history of low blood pressure, she did have a drop in her blood pressure to systolic in the 70s, however, was not tachycardic and was arousable. The patient was administered 2 L of IV fluids, her blood pressure improved. Patient was placed under a Ler[place] act secondary to the intentional overdose in a suicide attempt. The patient's 4 hour draw was sent to [facility] however, they stated there was clotting in the tube and they were unable to perform the 4 hour Tylenol level. Therefore, it was redrawn resulting in an 8 hour level of 243, suggesting Tylenol toxicity. Therefore, the patient was immediately placed on IV acetylcysteine and the on- call costumed character entertainer was paged for admission. The patient continued to be arousable , blood pressure ranged in the 80s to 90s, but there is no tachycardia. The patient does note a history of low blood pressure. The patient was placed on maintenance fluids. The patient will be admitted. Poison control was contacted during the patient's hospital stay in the emergency department. The patient was ordered her initial acetylcysteine dose at 150 mg/kg, and the 4 hour dose of 50 mg/kg, and then a 16 hour does at 100 milligrams per kilogram. Patient will be placed and IV fluids. Critical Care Narrative Aggregate critical care time was 35 minutes. Time to perform other separately billable procedures was not included in the critical care time. My time did not include minutes spent treating any other patients simultaneously or on activities that did not directly contribute to the patient's treatment. The services I provided to this patient were to treat and/or prevent clinically significant deterioration that could result in: Liver failure, hepatic toxicity , Tylenol toxicity, end-stage liver disease, hepatorenal syndrome, . I provided critical care services requiring my management, as noted below: Chart data review, documentation time, medication orders and management, vital sign assessments/reviewing monitor data, ordering and reviewing lab tests, ordering and interpreting/reviewing x-rays and diagnostic studies, care of the patient and discussion of the patient with the admitting physicians. Physician Communication Physician Communication The on-call costumed character entertainer was paged for admission. I discussed the patient with Dr. Do who agrees with admission. Diagnosis Primary Impression: Intentional drug overdose Qualified Code: T50.902A - Intentional drug overdose, initial encounter Additional Impressions: Suicidal ideation Tylenol toxicity Qualified Code: T39.1X2A - Tylenol toxicity, intentional self-harm, initial encounter Condition: Stable Yayo Engel MD Mar 27, 2016 16:17
[2016-03-27 16:22] LABS: ALKALINE PHOSPHATASE 65 U/L (45-117); ALT (GPT) 36 U/L (10-53); ANION GAP 11 MEQ/L (5-15); AST (GOT) 40 U/L (15-37); BICARBONATE 27.8 MEQ/L (21.0-32.0); BLOOD UREA NITROGEN 5 MG/DL (7-18); CHLORIDE 98 MEQ/L (98-107); GLOMERULAR FILTRATION RATE 62 ML/MIN (>89); SODIUM (NA) 137 MEQ/L (136-145); TOTAL BILIRUBIN ADULT 0.4 MG/DL (0.2-1.0)
[2016-03-27 16:25] LABS: POTASSIUM 2.6 MEQ/L (3.5-5.1)
[2016-03-27] MEDS ORDERED: POTASSIUM CHLORIDE 25 MEQ EFFERVESCENT TAB PO ONE (16:30)
[2016-03-27] MEDS ORDERED: ONDANSETRON HCL 4 MG/2 ML VIAL IV PUSH ONE (17:00)
[2016-03-27 17:39] LABS: ACETAMINOPHEN 16.9 MCG/ML (10.0-30.0)
[2016-03-27] MEDS ORDERED: SODIUM CHLOR 0.9% 1000 ML INJ 1,000 ML IV ONE ×2 (18:45→19:45)
[2016-03-27] MEDS ORDERED: ACETYLCYSTEINE IV SCH ×4 (22:45→23:45)
[2016-03-27] MEDS ORDERED: DEXTROSE 5% IV SCH ×4 (22:45→23:45)
[2016-03-27] MEDS ORDERED: WATER IV SCH ×2 (22:45)
[2016-03-27] MEDS ORDERED: BISACODYL 10 MG SUPP RECTAL PRN (23:00)
[2016-03-27] MEDS ORDERED: MISCELLANEOUS NURSING INFORMATION XX SCH (23:00)
[2016-03-27] MEDS ORDERED: SODIUM CHLORIDE 0.9% FLUSH 5 ML FLUSH IV FLUSH PRN (23:00)
[2016-03-27] MEDS ORDERED: BISACODYL EC 5 MG TABEC PO PRN (23:00)
[2016-03-27] MEDS ORDERED: PANTOPRAZOLE SODIUM 40 MG VIAL IV SCH (23:00)
[2016-03-27] MEDS ORDERED: CHLORHEXIDINE GLUCONATE 2 % 1 PACK (2 CLOTHS) TOP PRN (23:00)
[2016-03-27] MEDS ORDERED: METOCLOPRAMIDE HCL 10 MG/2 ML VIAL IV PRN (23:00)
[2016-03-27] MEDS ORDERED: ONDANSETRON HCL 4 MG/2 ML VIAL IV PRN (23:00)
[2016-03-27] MEDS ORDERED: RESP: ALBUTEROL 2.5 MG/IPRATROPIUM 0.5 MG NEB (PRN) INH (23:00)
[2016-03-27] MEDS: SODIUM CHLOR 0.9% 1000 ML INJ 1,000 ML IV SCH (23:12)
[2016-03-27] MEDS ORDERED: WATE IV SCH ×2 (23:45)
[2016-03-27 23:53] LABS: AMPHETAMINE, URINE NEG (NEG); BARBITURATES, URINE NEG (NEG)
[2016-03-27 23:58] LABS: COCAINE, URINE NEG (NEG)
[2016-03-28] VITALS (27 sets, daily range): BP systolic 94–163; BP diastolic 59–87; PULSE 48–76; RESP 12–32; TEMP 98.3–99.2; O2SAT 97–100
[2016-03-28] MEDS ORDERED: WATE IV SCH ×2 (03:45)
[2016-03-28] MEDS ORDERED: DEXTROSE 5% IV SCH ×2 (03:45)
[2016-03-28] MEDS ORDERED: ACETYLCYSTEINE IV SCH ×2 (03:45)
[2016-03-28] MEDS ORDERED: CHLORHEXIDINE GLUCONATE 2 % 1 PACK (2 CLOTHS) TOP SCH (04:00)
[2016-03-28 04:36] LABS: AUTOMATED NEUTROPHIL # 3.1 TH/MM3 (1.8-7.7); BASOPHIL # 0.1 TH/MM3 (0-0.2); BASOPHIL % 1.3 % (0.0-2.0); EOSINOPHIL # 0.5 TH/MM3 (0-0.4); EOSINOPHIL % 6.4 % (0.0-4.0); HEMATOCRIT 32.6 % (35.0-46.0); HEMO FLAGS DIFF FINAL; LYMPH % 37.9 % (9.0-44.0); LYMPHOCYTE # 2.7 TH/MM3 (1.0-4.8); MEAN CELL VOLUME 87.4 FL (80.0-100.0); MEAN CORPUSCULAR HEMOGLOBIN 29.1 PG (27.0-34.0); MEAN CORPUSCULAR HGB CONC 33.3 % (32.0-36.0); MONO % 10.8 % (0.0-8.0); NEUT % 43.6 % (16.0-70.0); PLATELET COUNT 286 TH/MM3 (150-450); RED BLOOD COUNT 3.73 MIL/MM3 (4.00-5.30); RED CELL DISTRIBUTION WIDTH 13.7 % (11.6-17.2); WHITE BLOOD COUNT 7.2 TH/MM3 (4.0-11.0)
[2016-03-28 04:43] LABS: INTERNATIONAL NORMALIZED RATIO 1.3 RATIO; PROTHROMBIN TIME - PATIENT 14.3 SEC (9.8-11.6)
[2016-03-28 05:22] LABS: ALKALINE PHOSPHATASE 52 U/L (45-117); ALT (GPT) 34 U/L (10-53); ANION GAP 11 MEQ/L (5-15); AST (GOT) 24 U/L (15-37); BICARBONATE 24.1 MEQ/L (21.0-32.0); BLOOD UREA NITROGEN 4 MG/DL (7-18); CHLORIDE 105 MEQ/L (98-107); GLOMERULAR FILTRATION RATE 81 ML/MIN (>89); MAGNESIUM 1.8 MG/DL (1.5-2.5); POTASSIUM 4.2 MEQ/L (3.5-5.1); SODIUM (NA) 140 MEQ/L (136-145); TOTAL BILIRUBIN ADULT 0.4 MG/DL (0.2-1.0)
--- NOTE | 2016-03-28 08:51 | HHI.HP ---
HPI Service Critical Care Medicine Primary Care Physician Shayne John M.D. Admission Diagnosis Tylenol toxicity, intentional overdose, Leroy act, suicidal ideation Diagnosis: Travel History International Travel<30 Days: No Contact w/Intl Traveler <30 Da: No Traveled to Known Affected Are: No History of Present Illness 40-year-old female with history of depression who presents the emergency department after overdose attempt with ETOH and Tylenol. Patient had been drinking alcohol today feeling increasingly depressed and suicidal. Approximately 1 hour prior to arrival to ED took 14 tablets of tizanidine 2 mg , and 20-30 tablets of extra strength Tylenol 500 mg in a suicide attempt. Patient feels slightly drowsy, nauseated. Has not had any episode of emesis. This is a suicide attempt. Patient still feels depressed and suicidal in the ED. Poison control center was notified, acetylcysteine protocol was initiated. The patient was Leroy acted .Critical care medicine was consulted for management and treatment. History PFSH Past Medical History Hx Anticoagulant Therapy: No Anemia: Yes Arthritis: Yes Asthma: No Blood Disorders: No Bipolar Disorder: Yes Anxiety: Yes Depression: Yes Heart Rhythm Problems: No Cancer: No Cardiovascular Problems: No High Cholesterol: No Chemotherapy: No Chest Pain: No Congestive Heart Failure: No Cirrhosis: Yes (DX WITH FATTY LIVER 10-15 YEARS AGO) COPD: No Cerebrovascular Accident: No Developmental Delay: No Diabetes: No Diminished Hearing: No Endocrine: No Gastrointestinal Disorders: Yes (DELAYED GASTRIC EMPTYING,) GERD: Yes Genitourinary: No Hiatal Hernia: Yes Hypertension: No Immune Disorder: No Implanted Vascular Access Dvce: No Insomnia: Yes Kidney Stones: No Musculoskeletal: No Neurologic: No Psychiatric: Yes Reproductive: No Respiratory: Yes Integumentary: Yes (07/2010- MRSA TO BILATERAL ARMS) Immunizations Current: Yes Migraines: Yes Myocardial Infarction: No Pancreatitis: Yes Radiation Therapy: No Renal Failure: No Seizures: No Sleep Apnea: No Thyroid Disease: No Ulcer: Yes Tetanus Vaccination: < 5 Years Influenza Vaccination: No ?: Not LMP: iud : 3 Para: 1 Miscarriage: 1 : 1 Past Surgical History AICD: No Arteriovenous Shunt: No Cardiac Surgery: No Eye Surgery: Yes (PT STATES SHE HAD EYE SURGERY FOR "[employer] [facility]" WHEN SHE WAS 3 YEARS OLD.) Hysterectomy: No Insulin Pump: No Joint Replacement: No Neurologic Surgery: No Pacemaker: No Thoracic Surgery: No Social History Alcohol Use: Yes Tobacco Use: No Substance Use: Yes (ETOH) Allergies-Medications Allergies-Medications (Allergen,Severity, Reaction): Coded Allergies: [place] (Verified Allergy, Severe, Seizures, 03/27/16) Morphine (Verified Adverse Reaction, Severe, Hives, 03/27/16) *MDRO Multi-Drug Resistant Organism (Verified Adverse Reaction, Unknown, Cleared 01/12/16, 03/27/16) MRSA (skin) - 07/2010 MRSA PCR Screens NEGATIVE - 12/10/15 & 01/12/16 Cleared per Infection Control Reported Meds & Prescriptions Reported Meds & Active Scripts Active Clotrimazole Topical (Clotrimazole) 1% Soln 1 Applic TOPICAL BID Ventolin Hfa 18 GM Inh (Albuterol Sulfate) 90 Mcg/Act Aer 1 Puff INH Q4H PRN Oxycodone-Acetaminophen 5-325 mg Tab 1 Tab PO Q4H PRN Acidophilus/l-Sporogenes (Lactobacillus Acidophilus) 1 Tab Tab 1 Tab PO TID Zofran Odt (Ondansetron Odt) 4 Mg Tab 4 Mg SL Q6HR PRN Reglan (Metoclopramide HCl) 10 Mg Tab 10 Mg PO TIDAC 30 Days Gabapentin 100 Mg Cap 100 Mg PO TID Trazodone (Trazodone HCl) 50 Mg Tab 150 Mg PO HS PRN Reported Tizanidine (Tizanidine HCl) 2 Mg Tab 2 Mg PO TID Prozac (Fluoxetine HCl) 20 Mg Cap 40 Mg PO DAILY Clonazepam 0.5 Mg Tab 0.5 Mg PO TID PRN Protonix (Pantoprazole Sodium) 40 Mg Tab 40 Mg PO DAILY ROS Review of Systems ROS Limitations: Poor Historian Except as stated in HPI: all other systems reviewed are Neg Physical Exam Vital Signs Vital Signs Date Time Temp Pulse Resp B/P Pulse Ox O2 Delivery O2 Flow Rate FiO2 03/28/16 07:25 63 16 119/76 97 21 Manual Cuff/Auscultation 03/28/16 05:56 64 16 111/77 98 Room Air 03/28/16 04:00 61 16 102/62 98 Room Air 03/28/16 01:59 68 16 112/67 98 Room Air 03/28/16 00:03 67 16 94/59 98 Room Air 03/27/16 22:36 67 16 90/58 97 Room Air 03/27/16 21:05 65 16 90/55 97 Room Air 03/27/16 20:00 65 16 96/60 97 Room Air 03/27/16 19:10 64 16 97 Room Air 03/27/16 18:46 64 14 84/62 98 Room Air Automatic Cuff 03/27/16 18:30 64 14 81/54 97 Room Air 03/27/16 17:15 60 14 109/74 98 Room Air 03/27/16 16:20 60 14 103/70 97 Room Air 03/27/16 15:54 14 98 Room Air 03/27/16 15:17 66 96 Room Air 03/27/16 15:11 98.0 65 18 109/64 97 Physical Exam GENERAL: This is a well-developed, well-nourished female lying in position , crying. SKIN: Warm and dry. HEAD: Atraumatic. Normocephalic. EYES: Pupils equal and round. No scleral icterus. No injection or drainage. ENT: No nasal bleeding or discharge. Mucous membranes pink and moist. NECK: Trachea midline. No JVD. CARDIOVASCULAR: Normal rate, regular rhythm. RESPIRATORY: No accessory muscle use. Clear to auscultation. Breath sounds equal bilaterally. GASTROINTESTINAL: Abdomen soft, non-tender, nondistended. No guarding. MUSCULOSKELETAL: Extremities without clubbing, cyanosis, or edema. No obvious deformities. NEUROLOGICAL: Awake and alert. RASS 0. No gross focal/sensory deficits. Follows commands in all 4 extremities. Laboratory Laboratory Tests Test 03/27/16 03/27/16 03/27/16 03/28/16 15:50 21:30 23:20 04:10 White Blood Count 7.6 7.2 Red Blood Count 3.73 3.73 Hemoglobin 11.3 10.9 Hematocrit 32.4 32.6 Mean Corpuscular Volume 86.9 87.4 Mean Corpuscular Hemoglobin 30.2 29.1 Mean Corpuscular Hemoglobin 34.7 33.3 Concent Red Cell Distribution Width 13.6 13.7 Platelet Count 317 286 Mean Platelet Volume 7.3 7.4 Neutrophils (%) (Auto) 50.1 43.6 Lymphocytes (%) (Auto) 36.6 37.9 Monocytes (%) (Auto) 7.0 10.8 Eosinophils (%) (Auto) 4.7 6.4 Basophils (%) (Auto) 1.6 1.3 Neutrophils # (Auto) 3.8 3.1 Lymphocytes # (Auto) 2.8 2.7 Monocytes # (Auto) 0.5 0.8 Eosinophils # (Auto) 0.4 0.5 Basophils # (Auto) 0.1 0.1 CBC Comment DIFF FINAL DIFF FINAL Differential Comment Sodium Level 137 140 Potassium Level 2.6 4.2 Chloride Level 98 105 Carbon Dioxide Level 27.8 24.1 Anion Gap 11 11 Blood Urea Nitrogen 5 4 Creatinine 0.99 0.78 Estimat Glomerular Filtration 62 81 Rate Random Glucose 119 100 Calcium Level 8.0 7.7 Total Bilirubin 0.4 0.4 Aspartate Amino Transf 40 24 (AST/SGOT) Alanine Aminotransferase 36 34 (ALT/SGPT) Alkaline Phosphatase 65 52 Total Protein 6.7 5.5 Albumin 3.6 2.8 Salicylates Level LESS THAN 1.7 Acetaminophen Level 16.9 243.1 126.4 Ethyl Alcohol Level 132 Urine Opiates Screen NEG Urine Barbiturates Screen NEG Urine Amphetamines Screen NEG Urine Benzodiazepines Screen NEG Urine Cocaine Screen NEG Urine Cannabinoids Screen NEG Prothrombin Time 14.3 Prothromb Time International 1.3 Ratio Phosphorus Level 3.1 Magnesium Level 1.8 Result Diagram: 03/28/1640903/28/16409 Assessment and Plan Assessment and Plan Neurologic: Bipolar disorder Suicidal ideations Lethargy secondary to acetaminophen toxicity Overdose tizanidine, Tylenol Alcohol Use Disorder Leroy act Psychiatry consult Neurochecks per ICU protocol Contact MD if lethargy persists, may need Narcan Poison control contacted for [id number] obtain LFTs at 1800 to determine continuation or cessation of acetylcysteine infusion Monitor for signs of alcohol withdrawal Respiratory: No acute issues Maintain O2 sat greater than 92% Administer O2 via nasal cannula, if needed Maintain head of bed 30 Cardiovascular: Normotensive Maintain MAP greater than 65, currently 6990 Telemetry Obtain F/U EKG now and in 12 hrs 1800 Renal: No Mirza, patient continues bedpan, until lethargy resolved, then may use bedside commode -- Strict I/Os FEN/GI: Nausea Elevated liver enzymes secondary to acetaminophen toxicity Zofran when necessary for nausea Maintain nothing by mouth status Every 4 hour Tylenol levels, acetylcysteine infusing 100/mg/kg (4100mg) over 16 hours Heme/ID: Monitor CBC Monitor for signs of fever and infection Endocrine: Obtain thyroid panel Euglycemic -- SSI Prophylaxis: GI Prophylaxis Protonix IV DVT Prophylaxis -- SCDs No pharmacological DVT prophylaxis secondary to hepatic injury Lines: Peripheral IVs 2. Central line if indicated Dispo: This patient remains critically ill with one or more organ systems which are or may become a threat to life. I have spent in excess of 60 minutes discontinuously in the care and management of this patient. This time is exclusive of procedures, and includes, but is not limited to, evaluation of the patient, review of the medical record, discussions with family, consultants, nursing staff, or respiratory therapy, and documentation in the medical record. Code Status Full Discussed Condition With [employer] DEVELOPER Shasta Umanzor MD Mar 28, 2016 08:51
[2016-03-28] MEDS ORDERED: MAGNESIUM SULFATE INJ 2 GM in SODIUM CHLORIDE 0.9% INJ 96 ML IV PRN (09:00)
[2016-03-28] MEDS ORDERED: CHLORHEXIDINE GLUCONATE 2 % 1 PACK (2 CLOTHS) TOP PRN (09:00)
[2016-03-28] MEDS ORDERED: DEXTROSE 50% IN WATER 50 ML VIAL(D50) IV PUSH PRN (09:00)
[2016-03-28] MEDS ORDERED: RESP: ALBUTEROL 2.5 MG/IPRATROPIUM 0.5 MG NEB (PRN) INH (09:00)
[2016-03-28] MEDS ORDERED: POTASSIUM PHOSPHATE MONOBASIC 500 MG TAB PO/TUBE PRN (09:00)
[2016-03-28] MEDS ORDERED: POTASSIUM CHLOR 40 MEQ PREMIX 100 ML IV PRN ×2 (09:00)
[2016-03-28] MEDS ORDERED: MAGNESIUM OXIDE 400 MG TAB PO PRN (09:00)
[2016-03-28] MEDS ORDERED: SODIUM PHOSPHATE INJ 30 MMOL in SODIUM CHLOR 0.9% 250 ML INJ 240 ML IV PRN (09:00)
[2016-03-28] MEDS ORDERED: POTASSIUM CHLOR 20 MEQ PREMIX 100 ML IV PRN ×2 (09:00)
[2016-03-28] MEDS ORDERED: SODIUM CHLORIDE 0.9% FLUSH 5 ML FLUSH IV FLUSH SCH (09:00)
[2016-03-28] MEDS ORDERED: GLUCAGON 1 MG/ML VIAL OTHER PRN (09:00)
[2016-03-28] MEDS ORDERED: POTASSIUM PHOSPHATE INJ 30 MMOL in SODIUM CHLOR 0.9% 250 ML INJ 250 ML IV PRN (09:00)
[2016-03-28] MEDS ORDERED: NALOXONE HCL 0.4 MG/ML AMP IV PRN (09:00)
[2016-03-28] MEDS ORDERED: MAGNESIUM SULFATE INJ 4 GM in SODIUM CHLORIDE 0.9% INJ 92 ML IV PRN (09:00)
[2016-03-28] MEDS ORDERED: SODIUM CHLORIDE 0.9% FLUSH 5 ML FLUSH IV FLUSH PRN (09:00)
[2016-03-28] MEDS ORDERED: MISCELLANEOUS NURSING INFORMATION XX SCH (09:00)
[2016-03-28] MEDS ORDERED: ONDANSETRON HCL 4 MG/2 ML VIAL IV PRN (09:00)
[2016-03-28] MEDS ORDERED: POTASSIUM CL 40 MEQ/30 ML LIQ UDC PO/TUBE PRN ×2 (09:00)
[2016-03-28] MEDS ORDERED: POTASSIUM PHOSPHATE MONOBASIC 500 MG TAB PO PRN (09:00)
[2016-03-28 10:19] LABS: BETA HCG QUANT LESS THAN 1 MIU/ML (0-5)
[2016-03-28] MEDS: INSULIN NovoLIN REGULAR SUPPLEMENTAL SCALE SQ SCH ×3 (11:00→21:00)
[2016-03-28] MEDS: SODIUM CHLORIDE 0.9% FLUSH 5 ML FLUSH IV FLUSH SCH ×2 (11:46→21:00)
[2016-03-28] MEDS: PANTOPRAZOLE SODIUM 40 MG VIAL IV SCH (11:46)
[2016-03-28] MEDS: SODIUM CHLOR 0.9% 1000 ML INJ 1,000 ML IV SCH ×3 (11:48→21:54)
[2016-03-28 12:39] LABS: FREE T4 1.05 NG/DL (0.76-1.46)
[2016-03-28] MEDS ORDERED: MIDAZOLAM HCL 2 MG/2 ML VIAL IV PUSH ONE (15:00)
--- NOTE | 2016-03-28 15:42 | EKG ---
Date Performed: 03/27/2016 Time Performed: 15:27:48 PTAGE: 40 years EKG: Sinus rhythm Since previous tracing, no significant change noted Normal ECG PREVIOUS TRACING : 03/18/2016 15.18 DOCTOR: Eugenio Caldwell Interpretating Date/Time 03/28/2016 15:40:35
--- NOTE | 2016-03-28 17:37 | PD.CONS ---
Provisional Diagnosis Admission Date Mar 27, 2016 at 22:58 Amma I. Alcohol abuse with intoxication him a alcohol induced mood disorder History of Present Illness Service Psychiatry Consult Requested By Attending Alondra Reason for Consult Leroy act Primary Care Physician Shayne John M.D. [facility] Patient is a 40-year-old white female comes here under a Leroy act by [facility] dated March 27, 2029 p.m. stating patient took alcohol Zanaflex and Tylenol in an attempt at suicide. Patient seen screened in the ED patient with blood alcohol level of 132 with significantly elevated Tylenol levels. Patient being treated with this acetylcholine at the present time. Patient seen in her room with RN present throughout session patient alert oriented thin slender female calm cooperative though minimizing her use of alcohol stating she relapsed a week ago for no significant reason she states she does not remember taking the overdose thinking that was not a suicide attempt though the amount of a variety of drugs taken somewhat contradict that. Patient is a long history of alcohol abuse with multiple documentations in the EMR. Has had overdoses in the past. Has had psychiatric assistance. At the present time patient does meet criteria for continuation of the Leroy act for possible transfer to the inpatient psychiatric unit at [facility] when she is medically cleared Review of Systems Except as stated in HPI: all other systems reviewed are Neg Past Family Social History Coded Allergies: [place] (Verified Allergy, Severe, Seizures, 03/27/16) Morphine (Verified Adverse Reaction, Severe, Hives, 03/27/16) *MDRO Multi-Drug Resistant Organism (Verified Adverse Reaction, Unknown, Cleared 01/12/16, 03/27/16) MRSA (skin) - 07/2010 MRSA PCR Screens NEGATIVE - 12/10/15 & 01/12/16 Cleared per Infection Control Past Medical History Long history alcohol abuse please see med surge assessments Active Scripts Clotrimazole Topical 1% Soln1 Applic TOPICAL BID #10 ML Ref 0 Prov:Christine Lamar MD 02/12/16 Albuterol 18 GM Inh (Ventolin Hfa 18 GM Inh)90 Mcg/Act Aer1 Puff INH Q4H PRN ( SHORTNESS OF BREATH) #1 INHALER Ref 0 Prov:Salinas Yousif MD 02/06/16 Oxycodone-Acetaminophen 5-325 mg Tab1 Tab PO Q4H PRN (PAIN) #30 TAB Ref 0 Prov:Salinas Yousif MD 02/06/16 Lactobacillus Acidophilus (Acidophilus/l-Sporogenes)1 Tab Tab1 Tab PO TID #90 TAB Ref 1 Prov:Salinas Yousif MD 02/06/16 Ondansetron Odt (Zofran Odt)4 Mg Tab4 Mg SL Q6HR PRN (Nausea/Vomiting) #30 TAB Ref 0 Prov:Salinas Yousif MD 02/06/16 Metoclopramide (Reglan)10 Mg Tab10 Mg PO TIDAC 30 Days Ref 0 Prov:Mervat Max DO 01/23/16 Gabapentin 100 Mg [id number] Mg PO TID #90 CAP Prov:Izzy Kidd MD 01/20/16 Trazodone 50 Mg [id number] Mg PO HS PRN (INSOMNIA) #90 TAB Prov:Izzy Kidd MD 12/16/15 Reported Medications Tizanidine 2 Mg Tab2 Mg PO TID Ref 0 03/27/16 Fluoxetine (Prozac)20 Mg Cap40 Mg PO DAILY #30 CAP Ref 0 01/02/16 Clonazepam 0.5 Mg Tab0.5 Mg PO TID PRN (ANXIETY) #90 TAB Ref 0 12/10/15 Pantoprazole (Protonix)40 Mg Tab40 Mg PO DAILY #30 TAB Ref 0 12/09/15 Discontinued Scripts Fluconazole (Diflucan)150 Mg Grj505 Mg PO ONCE #1 TAB Ref 0 Prov:Christine Lamar MD 02/12/16 Metronidazole (Flagyl)500 Mg [id number] Mg PO QID #56 TAB Ref 0 Prov:Salinas Yousif MD 02/07/16 Vancomycin 125 Mg Avr556 Mg PO QID 14 Days Ref 0 Prov:Salinas Yousif MD 02/06/16 Current Medications Medications (Trade) Dose Ordered Sig/Susanna Route Start Time Stop Time Status Last Admin Acetylcysteine 4100 mg/Dextrose 1,020.5 ml @ 62.5 mls/ hr ONCE IV 03/28/16 03:45 03/28/16 19:44 03/28/16 04:14 (NS 1000 ml Inj) 1,000 ml @ 125 mls/hr Q8H IV 03/27/16 22:55 03/28/16 11:48 (Reglan Inj) 10 mg Q6H PRN IV 03/27/16 23:00 (Dulcolax Ec) 10 mg DAILY PRN PO 03/27/16 23:00 (Dulcolax Supp) 10 mg DAILY PRN RECTAL 03/27/16 23:00 (NS Flush) 2 ml UNSCH PRN IV FLUSH 03/28/16 09:00 (NS Flush) 2 ml BID IV FLUSH 03/28/16 09:00 03/28/16 11:46 (Protonix Inj) 40 mg DAILY IV 03/28/16 09:00 03/28/16 11:46 (Zofran Inj) 4 mg Q6H PRN IV 03/28/16 09:00 (Narcan Inj) 0.4 mg Q3M PRN IV 03/28/16 09:00 Miscellaneous Information 1 Q361D XX 03/28/16 09:00 (Chlorhexidine 2% Cloth) 3 pack Taper DAILY@04 TOP 03/29/16 04:00 03/25/17 03:59 (Chlorhexidine 2% Cloth) 3 pack UNSCH PRN TOP 03/28/16 09:00 (D50w (Vial) Inj) 25 ml UNSCH PRN IV PUSH 03/28/16 09:00 Glucagon 1 mg 1 mg UNSCH PRN OTHER 03/28/16 09:00 Potassium Chloride 100 ml @ 50 mls/hr Q2H PRN IV 03/28/16 09:00 (KCl 20 Meq Premix Inj) 100 ml @ 50 mls/hr Q2H PRN IV 03/28/16 09:00 Potassium Chloride 40 meq 40 meq UNSCH PRN PO/TUBE 03/28/16 09:00 Potassium Chloride 100 ml @ 25 mls/hr UNSCH PRN IV 03/28/16 09:00 Potassium Chloride 100 ml @ 50 mls/hr Q2H PRN IV 03/28/16 09:00 (Magnesium Sulfate Inj/NS Inj) 100 ml @ 50 mls/hr UNSCH PRN IV 03/28/16 09:00 Magnesium Oxide 800 mg 800 mg UNSCH PRN PO 03/28/16 09:00 (Magnesium Sulfate Inj/NS Inj) 100 ml @ 50 mls/hr UNSCH PRN IV 03/28/16 09:00 Potassium Phosphate 2000 mg 2,000 mg Q4H PRN PO 03/28/16 09:00 (Sodium Phosphate Inj/NS 250 ml Inj) 250 ml @ 42 mls/hr UNSCH PRN IV 03/28/16 09:00 (KCl 40 Meq/30 ml Liq) 40 meq UNSCH PRN PO/TUBE 03/28/16 09:00 Potassium Phosphate 2000 mg 2,000 mg UNSCH PRN PO/TUBE 03/28/16 09:00 (Potassium Phosphate Inj/NS 250 ml Inj) 260 ml @ 42 mls/hr UNSCH PRN IV 03/28/16 09:00 (Flu (Quadrivalent) Vaccine Inj) 0.5 ml ONCE ONCE IM 03/29/16 10:00 03/29/16 10:01 (Pneumovax-23 Inj) 25 mcg ONCE ONCE IM 03/29/16 10:00 03/29/16 10:01 Family History No history mental health issues noted Social History Patient lives with dane who is also a drinker Patient's Strengths (min. 2) Patient verbally will access healthcare Physical Exam Please see [facility] assessments Vital Signs Vital Signs Date Time Temp Pulse Resp B/P Pulse Ox O2 Delivery O2 Flow Rate FiO2 03/28/16 15:00 64 24 144/78 03/28/16 14:00 99 03/28/16 12:00 99.0 03/28/16 09:43 21 03/28/16 05:56 Room Air I/O 03/27/16 03/27/16 03/28/16 08:00 16:00 00:00 Output Total 450 ml Balance -450 ml Mental Status Examination Alert oriented then slender somewhat disheveled white female lying quietly in bed is cooperative is somewhat guarded and perhaps somewhat manipulative with minimization of her issues Appearance Overall clean and neat Speech: Unremarkable Orientation: x3 Memory: Unremarkable Thought Process: Logical Thought Content: Unremarkable Hallucination Type: None Attention and Concentration: Other (fair) Suicidal Ideation: No (denies) Previous Suicide Attempts: Yes Homicidal Ideation: No Previous Homicide Attempts: No Insight: Poor Judgement: Poor Affect: Other (decreased range intensity) Mood: Euthymic (to mildly dysphoric) Motor Activity: Normal gait Assessment & Plan Problem List: (1) Substance induced mood disorder ICD Code: F19.94 (2) Alcohol abuse with alcohol-induced mood disorder ICD Code: F10.14 (3) Alcohol abuse with intoxication ICD Code: F10.129 Assessment & Plan Estimated LOS: days this time would recommend continuing the abdomen Leroy act with the possibility of transfer to the inpatient psychiatric unit once she is medically clear and stable Discharge Planning See above Request HC Surrog/Guard Advoc?: No Charlie Ron MD Mar 28, 2016 17:37
[2016-03-28 22:04] LABS: INDIRECT BILIRUBIN 0.3 MG/DL (0.0-0.8); TOTAL BILIRUBIN ADULT 0.4 MG/DL (0.2-1.0)
[2016-03-28 22:08] LABS: APTT (PATIENT) 29.6 SEC (24.3-30.1); INTERNATIONAL NORMALIZED RATIO 1.2 RATIO; PROTHROMBIN TIME - PATIENT 13.8 SEC (9.8-11.6)
[2016-03-28] MEDS ORDERED: traZODone HCL 100 MG TAB PO SCH (22:15)
[2016-03-29] VITALS (14 sets, daily range): BP systolic 87–143; BP diastolic 51–84; PULSE 50–64; RESP 14–21; TEMP 98.5–98.8; O2SAT 96–100
[2016-03-29] MEDS ORDERED: CHLORHEXIDINE GLUCONATE 2 % 1 PACK (2 CLOTHS) TOP SCH (04:00)
[2016-03-29] MEDS: SODIUM CHLOR 0.9% 1000 ML INJ 1,000 ML IV SCH (06:46)
[2016-03-29] MEDS: INSULIN NovoLIN REGULAR SUPPLEMENTAL SCALE SQ SCH ×2 (06:47→11:00)
[2016-03-29] MEDS ORDERED: LORazepam 2 MG/ML VIAL IV PUSH PRN ×4 (07:30)
[2016-03-29] MEDS ORDERED: LORazepam 2 MG TAB PO PRN (07:30)
[2016-03-29] MEDS ORDERED: FLUMAZENIL 0.5 MG/5 ML VIAL IV PUSH PRN (07:30)
[2016-03-29] MEDS ORDERED: ONDANSETRON HCL 4 MG/2 ML VIAL IV PUSH PRN (07:30)
[2016-03-29] MEDS ORDERED: LORazepam 1 MG TAB PO PRN (07:30)
--- NOTE | 2016-03-29 07:35 | HHI.CCPN ---
Subjective Remarks/Hospital Course 40-year-old female with history of depression who presents the emergency department after overdose attempt with ETOH and Tylenol. Patient had been drinking alcohol today feeling increasingly depressed and suicidal. Approximately 1 hour prior to arrival to ED took 14 tablets of tizanidine 2 mg , and 20-30 tablets of extra strength Tylenol 500 mg in a suicide attempt. Patient feels slightly drowsy, nauseated. Has not had any episode of emesis. This is a suicide attempt. Patient still feels depressed and suicidal in the ED. Poison control center was notified, acetylcysteine protocol was initiated. The patient was Leroy acted .Critical care medicine was consulted for management and treatment. Subjective 03/29: Afebrile. No bowel movement. Tolerating diet last night. Took 1 dose of trazodone for sleep. Currently no subjective signs EtOH withdrawal at present time. Currently in room air in no acute distress. Objective Vital Signs Date Time Temp Pulse Resp B/P Pulse Ox O2 Delivery O2 Flow Rate FiO2 03/29/16 06:01 50 15 137/66 97 03/29/16 05:01 98.5 03/28/16 19:55 21 03/28/16 05:56 Room Air Intake and Output 03/28/16 03/28/16 03/29/16 08:00 16:00 00:00 Intake Total 1838 ml 1646 ml Output Total 400 ml 650 ml 1050 ml Balance -400 ml 1188 ml 596 ml Result Diagram: 03/28/16 0410 03/28/16 0410 Objective Remarks GENERAL: 40-year-old female, well-developed, well-nourished female currently lying in bed in no acute distress SKIN: Warm and dry. No rash HEAD: Atraumatic. Normocephalic. EYES: Pupils equal and round about 2 mm bilaterally and reactive. No scleral icterus. No injection or drainage. ENT: No nasal bleeding or discharge. Mucous membranes pink and moist. NECK: Trachea midline. No JVD. CARDIOVASCULAR: Normal rate, regular rhythm. S1, S2. No S4. No murmur RESPIRATORY: No accessory muscle use. Clear to auscultation. Breath sounds equal bilaterally. GASTROINTESTINAL: Abdomen soft, non-tender, nondistended. No guarding. MUSCULOSKELETAL: Extremities without significant peripheral edema. No obvious deformities. NEUROLOGICAL: Awake and alert. Cranial nerves II through XII grossly intact. Strength and equal symmetric bilaterally. Normal sensation. Urinary Catheter: Yes Assessment to: Continue Mirza insert reason: Prolonged Immobilization Vascular Central Line Catheter: No Assessment to: Continue A/P Assessment and Plan Neurologic/Psych: Bipolar disorder Suicidal ideation Overdose tizanidine, acetaminophen Alcohol Use Disorder Chronic narcotic use Leroy act Psychiatry consult with Dr. Ron. Possible transfer to inpatient psych Neurochecks per ICU protocol Acetaminophen level currently 4.3 at 2135 yesterday. Patient has completed Mucom[place] protocol. Monitor for signs of alcohol withdrawal/CIWA protocol Thiamine, folate and multivitamin daily Resume Prozac 20 mg by mouth daily for depression/on 40 mg daily at home Resume gabapentin 100 mg by mouth 3 times a day/home medication Resumed temazepam 100 mg by mouth at night for insomnia./On 150 mg by mouth daily at home Resumed clonazepam 0.5 mg q8h as needed at home for anxiety Resumed oxycodone at 5 mill grams every 6 hours. For chronic pain. On Percocets at home but holding with acetaminophen toxicity Respiratory: No acute issues Maintain O2 sat greater than 92% Administer O2 via nasal cannula, if needed Maintain head of bed 30 Cardiovascular: Maintain MAP greater than 65, currently 6990 Telemetry Currently not requiring vasopressors and/or anti-hypertensives On normal saline at 125 cc an hour Renal/: No Mirza, patient continues bedpan, until lethargy resolved, then may use bedside commode -- Strict I/Os Follow BMP this a.m. FEN/GI: Nausea Elevated liver enzymes secondary to acetaminophen toxicity Hypoalbuminemia Zofran when necessary for nausea. Note she is on Zofran and Reglan as a home medication Advance diet as tolerated Every 4 hour Tylenol levels, acetylcysteine infusing 100/mg/kg (4100mg) over 16 hours has been completed. Normal LFTs with exception of low albumin this a.m. Heme/ID: Normocytic anemia History of C. difficile Monitor CBC Monitor for signs of fever and infection Endocrine: TSH within normal limits Euglycemic -- SSI /low with Accu-Cheks before meals/at bedtime to maintain euglycemia Prophylaxis: GI Prophylaxis Protonix IV DVT Prophylaxis -- SCDs/Lovenox Lines: Peripheral IVs 2. Central line if indicated Dispo: Patient is stable from a critical care medicine standpoint. We will assign care to the hospitalist in a.m. 03/30. Okay to transfer to inpatient psych Derrick Alex MD Mar 29, 2016 07:35
[2016-03-29] MEDS ORDERED: clonazePAM 0.5 MG TAB PO PRN (08:00)
[2016-03-29] MEDS ORDERED: ENOXAPARIN SODIUM 40 MG/0.4 ML SYRINGE SQ SCH (08:00)
--- NOTE | 2016-03-29 08:48 | HHI.DS ---
Discharge Summary Admission Date Mar 27, 2016 at 22:58 Admitting Diagnosis Tylenol toxicity, intentional overdose, Leroy act, suicidal ideation Brief History 40-year-old female with history of depression who presents the emergency department after overdose attempt with ETOH and Tylenol. Patient had been drinking alcohol today feeling increasingly depressed and suicidal. Approximately 1 hour prior to arrival to ED took 14 tablets of tizanidine 2 mg , and 20-30 tablets of extra strength Tylenol 500 mg in a suicide attempt. Patient feels slightly drowsy, nauseated. Has not had any episode of emesis. This is a suicide attempt. Patient still feels depressed and suicidal in the ED. Poison control center was notified, acetylcysteine protocol was initiated. The patient was Leroy acted .Critical care medicine was consulted for management and treatment. History PFSH Past Medical History Hx Anticoagulant Therapy: No Anemia: Yes Arthritis: Yes Asthma: No Blood Disorders: No Bipolar Disorder: Yes Anxiety: Yes Depression: Yes Heart Rhythm Problems: No Cancer: No Cardiovascular Problems: No High Cholesterol: No Chemotherapy: No Chest Pain: No Congestive Heart Failure: No Cirrhosis: Yes (DX WITH FATTY LIVER 10-15 YEARS AGO) COPD: No Cerebrovascular Accident: No Developmental Delay: No Diabetes: No Diminished Hearing: No Endocrine: No Gastrointestinal Disorders: Yes (DELAYED GASTRIC EMPTYING,) GERD: Yes Genitourinary: No Hiatal Hernia: Yes Hypertension: No Immune Disorder: No Implanted Vascular Access Dvce: No Insomnia: Yes Kidney Stones: No Musculoskeletal: No Neurologic: No Psychiatric: Yes Reproductive: No Respiratory: Yes Integumentary: Yes (07/2010- MRSA TO BILATERAL ARMS) Immunizations Current: Yes Migraines: Yes Myocardial Infarction: No Pancreatitis: Yes Radiation Therapy: No Renal Failure: No Seizures: No Sleep Apnea: No Thyroid Disease: No Ulcer: Yes Tetanus Vaccination: < 5 Years Influenza Vaccination: No ?: Not LMP: iud : 3 Para: 1 Miscarriage: 1 : 1 Past Surgical History AICD: No Arteriovenous Shunt: No Cardiac Surgery: No Eye Surgery: Yes (PT STATES SHE HAD EYE SURGERY FOR "[employer]" WHEN SHE WAS 3 YEARS OLD.) Hysterectomy: No Insulin Pump: No Joint Replacement: No Neurologic Surgery: No Pacemaker: No Thoracic Surgery: No Social History Alcohol Use: Yes Tobacco Use: No Substance Use: Yes (ETOH) Allergies-Medications Allergies-Medications (Allergen,Severity, Reaction): Coded Allergies: [place] (Verified Allergy, Severe, Seizures, 03/27/16) Morphine (Verified Adverse Reaction, Severe, Hives, 03/27/16) *MDRO Multi-Drug Resistant Organism (Verified Adverse Reaction, Unknown, Cleared 01/12/16, 03/27/16) MRSA (skin) - 07/2010 MRSA PCR Screens NEGATIVE - 12/10/15 & 01/12/16 Cleared per Infection Control Reported Meds & Prescriptions Reported Meds & Active Scripts Active Clotrimazole Topical (Clotrimazole) 1% Soln 1 Applic TOPICAL BID Ventolin Hfa 18 GM Inh (Albuterol Sulfate) 90 Mcg/Act Aer 1 Puff INH Q4H PRN Oxycodone-Acetaminophen 5-325 mg Tab 1 Tab PO Q4H PRN Acidophilus/l-Sporogenes (Lactobacillus Acidophilus) 1 Tab Tab 1 Tab PO TID Zofran Odt (Ondansetron Odt) 4 Mg Tab 4 Mg SL Q6HR PRN Reglan (Metoclopramide HCl) 10 Mg Tab 10 Mg PO TIDAC 30 Days Gabapentin 100 Mg Cap 100 Mg PO TID Trazodone (Trazodone HCl) 50 Mg Tab 150 Mg PO HS PRN Reported Tizanidine (Tizanidine HCl) 2 Mg Tab 2 Mg PO TID Prozac (Fluoxetine HCl) 20 Mg Cap 40 Mg PO DAILY Clonazepam 0.5 Mg Tab 0.5 Mg PO TID PRN Protonix (Pantoprazole Sodium) 40 Mg Tab 40 Mg PO DAILY ROS Review of Systems ROS Limitations: Poor Historian Except as stated in HPI: all other systems reviewed are Neg CBC/BMP: 03/28/16 0410 03/28/16 0410 Significant Findings Laboratory Tests Test 03/27/16 03/27/16 03/28/16 03/28/16 15:50 21:30 04:10 09:30 Red Blood Count 3.73 MIL/MM3 3.73 MIL/MM3 (4.00-5.30) (4.00-5.30) Hemoglobin 11.3 GM/DL 10.9 GM/DL (11.6-15.3) (11.6-15.3) Hematocrit 32.4 % 32.6 % (35.0-46.0) (35.0-46.0) Eosinophils (%) (Auto) 4.7 % (0.0-4.0) 6.4 % (0.0-4.0) Potassium Level 2.6 MEQ/L (3.5-5.1) Blood Urea Nitrogen 5 MG/DL (7-18) 4 MG/DL (7-18) Estimat Glomerular Filtration 62 ML/MIN (>89) 81 ML/MIN (>89) Rate Random Glucose 119 MG/DL (74-106) Calcium Level 8.0 MG/DL 7.7 MG/DL (8.5-10.1) (8.5-10.1) Aspartate Amino Transf 40 U/L (15-37) (AST/SGOT) Salicylates Level LESS THAN 1.7 MG/DL (2.8-20.0) Ethyl Alcohol Level 132 MG/DL (0-5) Acetaminophen Level 243.1 MCG/ML 126.4 MCG/ML 32.0 MCG/ML (10.0-30.0) (10.0-30.0) (10.0-30.0) Monocytes (%) (Auto) 10.8 % (0.0-8.0) Eosinophils # (Auto) 0.5 TH/MM3 (0-0.4) Prothrombin Time 14.3 SEC (9.8-11.6) Total Protein 5.5 GM/DL (6.4-8.2) Albumin 2.8 GM/DL (3.4-5.0) Test 03/28/16 03/28/16 18:07 21:35 Acetaminophen Level 5.6 MCG/ML 4.3 MCG/ML (10.0-30.0) (10.0-30.0) Prothrombin Time 13.8 SEC (9.8-11.6) Total Protein 5.3 GM/DL (6.4-8.2) Albumin 2.7 GM/DL (3.4-5.0) PE at Discharge GENERAL: 40-year-old female, well-developed, well-nourished female currently lying in bed in no acute distress SKIN: Warm and dry. No rash HEAD: Atraumatic. Normocephalic. EYES: Pupils equal and round about 2 mm bilaterally and reactive. No scleral icterus. No injection or drainage. ENT: No nasal bleeding or discharge. Mucous membranes pink and moist. NECK: Trachea midline. No JVD. CARDIOVASCULAR: Normal rate, regular rhythm. S1, S2. No S4. No murmur RESPIRATORY: No accessory muscle use. Clear to auscultation. Breath sounds equal bilaterally. GASTROINTESTINAL: Abdomen soft, non-tender, nondistended. No guarding. MUSCULOSKELETAL: Extremities without significant peripheral edema. No obvious deformities. NEUROLOGICAL: Awake and alert. Cranial nerves II through XII grossly intact. Strength and equal symmetric bilaterally. Normal sensation. Transfer Summary Neurologic/Psych: Bipolar disorder Suicidal ideation Overdose tizanidine, acetaminophen Alcohol Use Disorder Chronic narcotic use Leroy act Psychiatry consult with Dr. Ron. Possible transfer to inpatient psych Neurochecks per ICU protocol Acetaminophen level currently 4.3 at 2135 yesterday. Patient has completed Mucomyst protocol. Monitor for signs of alcohol withdrawal/CIWA protocol Thiamine, folate and multivitamin daily Resume Prozac 20 mg by mouth daily for depression/on 40 mg daily at home Resume gabapentin 100 mg by mouth 3 times a day/home medication Resumed temazepam 100 mg by mouth at night for insomnia./On 150 mg by mouth daily at home Resumed clonazepam 0.5 mg q8h as needed at home for anxiety Resumed oxycodone at 5 mill grams every 6 hours. For chronic pain. On Percocets at home but holding with acetaminophen toxicity Respiratory: No acute issues Maintain O2 sat greater than 92% Administer O2 via nasal cannula, if needed Maintain head of bed 30 Cardiovascular: Maintain MAP greater than 65, currently 6990 Telemetry Currently not requiring vasopressors and/or anti-hypertensives On normal saline at 125 cc an hour Renal/: No Mirza, patient continues bedpan, until lethargy resolved, then may use bedside commode -- Strict I/Os Follow BMP this a.m. FEN/GI: Nausea Elevated liver enzymes secondary to acetaminophen toxicity Hypoalbuminemia Zofran when necessary for nausea. Note she is on Zofran and Reglan as a home medication Advance diet as tolerated Every 4 hour Tylenol levels, acetylcysteine infusing 100/mg/kg (4100mg) over 16 hours has been completed. Normal LFTs with exception of low albumin this a.m. Heme/ID: Normocytic anemia History of C. difficile Monitor CBC Monitor for signs of fever and infection Endocrine: TSH within normal limits Euglycemic -- SSI /low with Accu-Cheks before meals/at bedtime to maintain euglycemia Prophylaxis: GI Prophylaxis Protonix IV DVT Prophylaxis -- SCDs/Lovenox Lines: Peripheral IVs 2. Central line if indicated Dispo: Patient is stable from a critical care medicine standpoint. We will assign care to the hospitalist in a.m. 03/30. Okay to transfer to inpatient psych Hospital Course 40-year-old female with history of depression who presents the emergency department after overdose attempt with ETOH and Tylenol. Patient had been drinking alcohol today feeling increasingly depressed and suicidal. Approximately 1 hour prior to arrival to ED took 14 tablets of tizanidine 2 mg , and 20-30 tablets of extra strength Tylenol 500 mg in a suicide attempt. Patient feels slightly drowsy, nauseated. Has not had any episode of emesis. This is a suicide attempt. Patient still feels depressed and suicidal in the ED. Poison control center was notified, acetylcysteine protocol was initiated. The patient was Leroy acted .Critical care medicine was consulted for management and treatment. Subjective 03/29: Afebrile. No bowel movement. Tolerating diet last night. Took 1 dose of trazodone for sleep. Currently no subjective signs EtOH withdrawal at present time. Currently in room air in no acute distress. Pt Condition on Discharge: Good Discharge Disposition: Disc to Psych Care Fac Discharge Instructions DIET: Follow Instructions for: As Tolerated, No Restrictions Activities you can perform: Regular-No Restrictions Derrick Alex MD Mar 29, 2016 08:48
[2016-03-29] MEDS ORDERED: THIAMINE INJ 100 MG in SODIUM CHLORIDE 0.9% INJ 100 ML IV SCH (09:00)
[2016-03-29] MEDS ORDERED: FOLIC ACID 1 MG TAB PO SCH (09:00)
[2016-03-29] MEDS ORDERED: FLUoxetine HCL 20 MG CAP PO SCH (09:00)
[2016-03-29] MEDS ORDERED: MULTIVITAMIN TAB PO SCH (09:00)
[2016-03-29] MEDS ORDERED: GABAPENTIN 100 MG CAP PO SCH (09:00)
[2016-03-29] MEDS: SODIUM CHLORIDE 0.9% FLUSH 5 ML FLUSH IV FLUSH SCH (09:00)
[2016-03-29] MEDS: PANTOPRAZOLE SODIUM 40 MG VIAL IV SCH (09:21)
[2016-03-29] MEDS ORDERED: INFLUENZA VIRUS VACCINE (QUADRIVALENT) 0.5 ML SYR IM ONE (10:00)
[2016-03-29] MEDS ORDERED: PNEUMOCOCCAL POLYVALENT INJ 25 MCG/0.5 ML SYR IM ONE (10:00)
[2016-03-29 10:11] LABS: AUTOMATED NEUTROPHIL # 8.6 TH/MM3 (1.8-7.7); BASOPHIL # 0.1 TH/MM3 (0-0.2); BASOPHIL % 0.9 % (0.0-2.0); EOSINOPHIL # 0.4 TH/MM3 (0-0.4); EOSINOPHIL % 3.6 % (0.0-4.0); HEMATOCRIT 32.9 % (35.0-46.0); HEMO FLAGS DIFF FINAL; LYMPH % 14.7 % (9.0-44.0); LYMPHOCYTE # 1.6 TH/MM3 (1.0-4.8); MEAN CELL VOLUME 88.7 FL (80.0-100.0); MEAN CORPUSCULAR HEMOGLOBIN 29.9 PG (27.0-34.0); MEAN CORPUSCULAR HGB CONC 33.7 % (32.0-36.0); MONO % 3.4 % (0.0-8.0); NEUT % 77.4 % (16.0-70.0); PLATELET COUNT 253 TH/MM3 (150-450); RED CELL DISTRIBUTION WIDTH 14.4 % (11.6-17.2); WHITE BLOOD COUNT 11.1 TH/MM3 (4.0-11.0)
[2016-03-29 10:21] LABS: CHLORIDE 110 MEQ/L (98-107); POTASSIUM 3.5 MEQ/L (3.5-5.1); SODIUM (NA) 143 MEQ/L (136-145)
[2016-03-29 10:25] LABS: ANION GAP 11 MEQ/L (5-15); BICARBONATE 22.3 MEQ/L (21.0-32.0); BLOOD UREA NITROGEN 2 MG/DL (7-18); MAGNESIUM 1.4 MG/DL (1.5-2.5)
[2016-03-29 10:28] LABS: ALT (GPT) 22 U/L (10-53); AST (GOT) 19 U/L (15-37); GLOMERULAR FILTRATION RATE 73 ML/MIN (>89)
[2016-03-29 10:29] LABS: TOTAL BILIRUBIN ADULT 0.3 MG/DL (0.2-1.0)
[2016-03-29 10:31] LABS: ALKALINE PHOSPHATASE 62 U/L (45-117)
[2016-03-29] MEDS ORDERED: POTASSIUM CHLORIDE 20 MEQ CONTROLLED RELEASE TAB PO PRN ×2 (11:15)
--- NOTE | 2016-03-29 14:26 | EKG ---
Date Performed: 03/28/2016 Time Performed: 21:27:36 PTAGE: 40 years EKG: Sinus bradycardia. Prolonged QT interval Borderline ECG PREVIOUS TRACING : 03/28/2016 17.57 DOCTOR: Kaden Dominguez Interpretating Date/Time 03/29/2016 14:22:29
--- NOTE | 2016-03-29 14:29 | EKG ---
Date Performed: 03/28/2016 Time Performed: 17:57:30 PTAGE: 40 years EKG: Sinus bradycardia. Normal ECG except for rate PREVIOUS TRACING : 03/28/2016 15.25 DOCTOR: Kaden Dominguez Interpretating Date/Time 03/29/2016 14:26:56
--- NOTE | 2016-03-29 14:34 | EKG ---
Date Performed: 03/28/2016 Time Performed: 15:25:52 PTAGE: 40 years EKG: Sinus bradycardia with sinus arrhythmia Normal ECG except for rate PREVIOUS TRACING : 03/28/2016 12.09 DOCTOR: Kaden Dominguez Interpretating Date/Time 03/29/2016 14:29:47
--- NOTE | 2016-03-29 14:37 | EKG ---
Date Performed: 03/28/2016 Time Performed: 12:09:22 PTAGE: 40 years EKG: Sinus bradycardia. Normal ECG except for rate PREVIOUS TRACING : 03/27/2016 15.27 DOCTOR: Kaden Dominguez Interpretating Date/Time 03/29/2016 14:32:34
== END 2016-03-29 08:59 | DRG 918 ==
LOC: PHED 14:57 → PHEDA 22:58 → PHICU 03-28 08:09 → H260 03-29 09:00 → UNDODISIN 03-29 12:30
PROVIDERS: ADMIT Internal Medicine Critical Care Medicine; ATTEND Internal Medicine Critical Care Medicine
DX: T39.1X2A Poisoning by 4-Aminophenol derivatives, intentional self-harm, initial encounter (principal); K74.60 Unspecified cirrhosis of liver; F10.14 Alcohol abuse with alcohol-induced mood disorder; T42.8X2A Poisoning by antiparkinsonism drugs and other central muscle-tone depressants, intentional self-harm, initial encounter; F10.129 Alcohol abuse with intoxication, unspecified; Y90.6 Blood alcohol level of 120-199 mg/100 ml; R06.02 Shortness of breath; K21.9 Gastro-esophageal reflux disease without esophagitis; Z79.891 Long term (current) use of opiate analgesic; G89.29 Other chronic pain; D64.9 Anemia, unspecified; E88.09 Other disorders of plasma-protein metabolism, not elsewhere classified; R74.8 Abnormal levels of other serum enzymes
CPT/HCPCS: 76937; 80053; 80076; 80307; 80320; 80329; 82948; 83735; 84100; 84439; 84443; 84702; 85025; 85610; 85730; 87641; 90686; 90732; 93005; 96361; 96374; C9113; G0480; J0132; J1650; J2250; J2405; J3411; J7030; J7060; J7070; Q2038

== ENCOUNTER 2016-03-29 09:00 | Inpatient (IN) | payer OTHER ==
[~2016-03-29] VITALS: Ht 157.5 cm; Wt 43.1 kg
[~2016-03-29 09:00] MED LIST changes: +TIZA2TAB PO
[2016-03-29 14:05] VITALS: BP 119/85; PULSE 90; RESP 18; TEMP 98.5; O2SAT 98
[2016-03-29] MEDS ORDERED: ONDANSETRON ODT 4 MG TAB SL PRN (14:45)
[2016-03-29] MEDS ORDERED: MAGNESIUM HYDROXIDE SUSP 30 ML CUP PO PRN (14:45)
[2016-03-29] MEDS ORDERED: ALUMINUM/MAGNESIUM/SIMETH 30 ML CUP PO PRN (14:45)
[2016-03-29] MEDS ORDERED: clonazePAM 0.5 MG TAB PO PRN (14:45)
[2016-03-29] MEDS ORDERED: hydrOXYzine HCL 50 MG TAB PO PRN (14:45)
[2016-03-29] MEDS ORDERED: ALBUTEROL SULFATE 90 MCG/ACT HFA 8 GM INHALER INH PRN (14:45)
[2016-03-29] MEDS ORDERED: diphenhydrAMINE HCL 50 MG CAP PO PRN (14:45)
[2016-03-29] MEDS ORDERED: FLUMAZENIL 0.5 MG/5 ML VIAL IV PUSH PRN (16:30)
[2016-03-29] MEDS ORDERED: LORazepam 2 MG TAB PO PRN (16:30)
[2016-03-29] MEDS ORDERED: LORazepam 2 MG/ML VIAL IV PUSH PRN ×4 (16:30)
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
[2016-03-29] MEDS: GABAPENTIN 100 MG CAP PO SCH (17:06)
[2016-03-29] MEDS: LORazepam 1 MG TAB PO PRN (17:06)
[2016-03-29] MEDS: LACTOBACILLUS ACIDOPHILUS TAB PO SCH (17:07)
[2016-03-29] MEDS: METOCLOPRAMIDE HCL 10 MG TAB PO SCH (17:07)
[2016-03-29 17:11] VITALS: BP 163/75; PULSE 68; RESP 17; TEMP 98.3; O2SAT 99
[2016-03-29] MEDS: CLOTRIMAZOLE 1% SOLN 30 ML BTL TOPICAL SCH (20:42)
[2016-03-30] MEDS: LORazepam 1 MG TAB PO PRN (04:27)
[2016-03-30 05:32] VITALS: BP 154/75; PULSE 65; RESP 17; TEMP 97.6; O2SAT 95
[2016-03-30] MEDS: METOCLOPRAMIDE HCL 10 MG TAB PO SCH ×2 (08:28→12:17)
[2016-03-30] MEDS: GABAPENTIN 100 MG CAP PO SCH ×2 (08:28→12:16)
[2016-03-30] MEDS: LACTOBACILLUS ACIDOPHILUS TAB PO SCH ×2 (08:28→12:17)
[2016-03-30] MEDS: CLOTRIMAZOLE 1% SOLN 30 ML BTL TOPICAL SCH (09:00)
[2016-03-30] MEDS ORDERED: NICOTINE 21 MG/24 HR PATCH T-DERMAL SCH (09:00)
[2016-03-30] MEDS ORDERED: PANTOPRAZOLE SOD 40 MG DELAYED RELEASE TAB PO SCH (09:00)
[2016-03-30] MEDS ORDERED: FLUoxetine HCL 20 MG CAP PO SCH (09:00)
[2016-03-30] MEDS ORDERED: REMOVE OLD PATCH TD SCH (09:00)
--- NOTE | 2016-03-30 11:35 | HHI.DS ---
Psychiatry Discharge Summary Inpatient Psychiatric care?: Yes Advance Directive: No Reason Not Provided: Due to Patient Condition Mental Health AdvanceDirective: No Health Care Proxy: No Admission Admission Date Mar 29, 2016 at 09:00 Admission Diagnosis: (1) Alcohol abuse with alcohol-induced mood disorder ICD Code: F10.14 Brief History Patient is a 40 room white female initially seen by me in consultation yesterday under she was admitted to the intensive care unit at the [facility] being treated for a Tylenol overdose. At the time she also had a ingestion of a muscle relaxer, and she was intoxicated. Patient has been medically cleared and transferred to the unit under the Leroy act. At the present time patient sitting quietly in her room medical student Vita present throughout session. Patient continues with some minimization of the intensity of her alcohol use. Though she denies suicidality homicidality voices or visions. She did expand on the family history patient's mother and father are both drinker she has a brother was an alcoholic also. Patient also has, if AMRs are reviewed multiple blood alcohol levels of significance over the past few years. However at this time patient does show willingness to remain here on a voluntary basis for further assessment. She is also willing to talk with both her dane and her parents meet with me tomorrow morning. Thus I'll lift the Leroy act allow her to sign voluntary will continue this she will protocol at the present time the continue her other medications per the med reconciliation from her hospitalization on the [facility] Tobacco Use In Past 30 Days: No Tobacco Past 30 Days Alcohol Use: 4 or More Times Per Week Hospital Course Patient showing good adjustment to the inpatient unit, no behavior problems, compliant medications. Did denies suicidality homicidality from different vision, though showing some rationalization and minimization of her alcohol use. We did meet today with patient, patient's dane Tripathi, and her father and medical student Vita.. They both verify patient's long history of alcohol abuse and dependency. The stressors in the family. the strong family history of alcohol related issues. Patient to show some insight into her need for effluent sobriety and treatment. She denies suicidality homicidality voices or visions. Family verifies there feelings of patient's if she go home. Thus patient be discharged today to her family. No Rx by me. She may continue her regular scheduled medications will strong recommendation she abstain from any benzodiazepines or opiates or other substances of abuse and strong recommendation absolute abstinence with follow-up with AA/NA and also follow-up with her PCP Results Blood Pressure 154 / 75 Vital Signs Date Time Temp Pulse Resp B/P Pulse Ox O2 Delivery O2 Flow Rate FiO2 03/30/16 05:32 97.6 65 17 154/75 95 [facility] Summary of Procedures None done Pending results at discharge: No Medications # of Antipsychotic meds at D/C: 0 Approp Antipsych med options 1 - Minimum of three failed multiple trials of monotherapy. 2 - Documented plan to taper to monotherapy due to previous use of multiple meds OR cross-taper in progress at D/C. 3 - Documentation of augmentation of Clozapine. 4 - Justification other than those listed in allowable values 1-3, document here : Discharge Discharge Date: Mar 30, 2016 Discharge Diagnosis: (1) Alcohol abuse with alcohol-induced mood disorder Diagnosis: Principal ICD Code: F10.14 Mental Status Exam at Disch Alert oriented thin slender white female calm cooperative. She is normally active, mood is euthymic affect showed good range intensity. Speech rate and rhythm are within normal limits though no formal thought disorders. No auditory or visual hallucinations no delusions noted insight and judgment is poor to fair, cognition grossly intact Pt Condition on Discharge: Stable Discharge Disposition: Discharge Home Discharge Instructions Diet Instructions: As Tolerated, No Restrictions Activities you can perform: Regular-No Restrictions Scheduled Appointment: PCP Discharge Time > 30 minutes Discharge/Advance Care Plan Health Problems: (1) Alcohol abuse with alcohol-induced mood disorder Goals to promote your health * To prevent worsening of your condition and complications * To maintain your health at the optimal level Directions to meet your goals Take your medications as prescribed Follow your dietary instruction Follow activity as directed Keep your appointments as scheduled Take your immunizations and boosters as scheduled If your symptoms worsen call your PCP, if no PCP go to Urgent Care Center or Emergency Room For 30/08 questions related to your inpatient stay or results of tests pending at discharge, please contact Dr. Charlie Ron at Smoking is Dangerous to Your Health. Avoid second hand smoking Charlie Ron MD Mar 30, 2016 11:35
== END 2016-03-30 14:20 | disposition home or self-care (01) | DRG 897 ==
LOC: H260 09:00
PROVIDERS: ADMIT Psychiatry & Neurology Psychiatry; ATTEND Psychiatry & Neurology Psychiatry
DX: F10.14 Alcohol abuse with alcohol-induced mood disorder (principal); Z91.5 Personal history of self-harm; Z81.1 Family history of alcohol abuse and dependence
CPT/HCPCS: Q0163

== ENCOUNTER 2016-04-12 08:18 | Emergency (ER) | payer OTHER ==
[~2016-04-12] VITALS: Ht 157.5 cm; Wt 42.0 kg
[~2016-04-12 08:18] MED LIST changes: -DIFL150T PO; -LACT PO; -METR-1 PO; -OXYC1TAB63 PO; -TIZA2TAB PO; -VANC125C3 PO
[2016-04-12 08:20] VITALS: BP 124/80; PULSE 80; RESP 16; TEMP 97.4; O2SAT 100
[2016-04-12] MEDS ORDERED: CLON1 PO (08:41)
[2016-04-12] MEDS ORDERED: SODIUM CHLOR 0.9% 1000 ML INJ 1,000 ML IV SCH (08:56)
[2016-04-12] MEDS ORDERED: SODIUM CHLORIDE 0.9% FLUSH 5 ML FLUSH IVF PRN (09:00)
[2016-04-12] MEDS ORDERED: LORazepam 2 MG/ML VIAL IV PUSH ONE (09:00)
[2016-04-12] MEDS ORDERED: ONDANSETRON HCL 4 MG/2 ML VIAL IM ONE (09:00)
[2016-04-12 09:37] LABS: BASOPHIL # 0.1 TH/MM3 (0-0.2); BASOPHIL % 2.6 % (0.0-2.0); EOSINOPHIL # 0.3 TH/MM3 (0-0.4); EOSINOPHIL % 4.4 % (0.0-4.0); HEMO FLAGS DIFF FINAL; LYMPH % 36.5 % (9.0-44.0); LYMPHOCYTE # 2.1 TH/MM3 (1.0-4.8); MEAN CELL VOLUME 87.2 FL (80.0-100.0); MEAN CORPUSCULAR HEMOGLOBIN 29.9 PG (27.0-34.0); MEAN CORPUSCULAR HGB CONC 34.3 % (32.0-36.0); MONO % 4.5 % (0.0-8.0); PLATELET COUNT 433 TH/MM3 (150-450); RED BLOOD COUNT 4.13 MIL/MM3 (4.00-5.30); RED CELL DISTRIBUTION WIDTH 14.8 % (11.6-17.2); WHITE BLOOD COUNT 5.7 TH/MM3 (4.0-11.0)
--- NOTE | 2016-04-12 09:42 | PD ---
HPI Chief Complaint: GI Complaint Time Seen by Provider: 08:51 Travel History International Travel<30 days: No Contact w/Intl Traveler<30days: No Traveled to known affect area: No History of Present Illness HPI Patient is a 40-year-old female who presents to emergency room with a few medical complaints. Patient reports that for the past 2 weeks, she has had increased nausea vomiting and diarrhea. Patient reports no sick contacts at home, denies any recent travels. Patient reports that she is able to eat and drink but reports that she is still symptomatic. Reports concerns as she had history of C. difficile in January when she had pneumonia with antibiotics. Patient reports that she has not been on any antibiotics recently, reports "I don't think it is C. difficile, but I am worried." Patient also reports increased pains to her epigastrium and right lower quadrant. No fevers or chills. Patient reports that she is an alert, alcoholic, reports that she relapsed and started drinking about a week ago. Patient reports that she drinks about 1 pint of hard alcohol each day. Reports last drink was this morning. 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 Patient requesting Librium at discharge. Patient denies SI or HI. PFSH Past Medical History Hx Anticoagulant Therapy: No Anemia: Yes Arthritis: Yes Asthma: No Blood Disorders: No Bipolar Disorder: Yes Anxiety: Yes Depression: Yes Heart Rhythm Problems: No Cancer: No Cardiovascular Problems: No High Cholesterol: No Chemotherapy: No Chest Pain: No Congestive Heart Failure: No Cirrhosis: Yes (DX WITH FATTY LIVER 10-15 YEARS AGO) COPD: No Cerebrovascular Accident: No Developmental Delay: No Diabetes: No Diminished Hearing: No Endocrine: No Gastrointestinal Disorders: Yes (DELAYED GASTRIC EMPTYING, ) GERD: Yes Genitourinary: No Hiatal Hernia: Yes Hypertension: No Immune Disorder: No Implanted Vascular Access Dvce: No Insomnia: Yes Kidney Stones: No Musculoskeletal: No Neurologic: No Psychiatric: Yes Reproductive: No Respiratory: No Integumentary: Yes (07/2010- MRSA TO BILATERAL ARMS) Immunizations Current: Yes Migraines: Yes Myocardial Infarction: No Pancreatitis: Yes Radiation Therapy: No Renal Failure: No Seizures: No Sleep Apnea: No Thyroid Disease: No Ulcer: Yes ?: Unknown LMP: IUD : 3 Para: 1 Miscarriage: 1 : 1 Past Surgical History AICD: No Arteriovenous Shunt: No Cardiac Surgery: No Eye Surgery: Yes (PT STATES SHE HAD EYE SURGERY FOR "LAZY EYE" WHEN SHE WAS 3 YEARS OLD.) Hysterectomy: No Insulin Pump: No Joint Replacement: No Neurologic Surgery: No Pacemaker: No Thoracic Surgery: No Social History Alcohol Use: Yes (CHRONIC ALCOHOLIC) Tobacco Use: No Substance Use: No Allergies-Medications (Allergen,Severity, Reaction): Coded Allergies: [place] (Verified Allergy, Severe, Seizures, 04/12/16) Morphine (Verified Adverse Reaction, Severe, Hives, 04/12/16) *MDRO Multi-Drug Resistant Organism (Verified Adverse Reaction, Unknown, Cleared 01/12/16, 04/12/16) MRSA (skin) - 07/2010 MRSA PCR Screens NEGATIVE - 12/10/15 & 01/12/16 Cleared per Infection Control Reported Meds & Prescriptions Reported Meds & Active Scripts Active Ventolin Hfa 18 GM Inh (Albuterol Sulfate) 90 Mcg/Act Aer 1 Puff INH Q4H PRN Trazodone (Trazodone HCl) 50 Mg Tab 150 Mg PO HS PRN Reported Klonopin (Clonazepam) 1 Mg Tab 1 Mg PO BID Prozac (Fluoxetine HCl) 20 Mg Cap 40 Mg PO DAILY Review of Systems General / Constitutional: No: Fever Eyes: No: Visual changes HENT: No: Headaches Cardiovascular: No: Chest Pain or Discomfort Respiratory: No: Shortness of Breath Gastrointestinal: Positive: Nausea, Vomiting, Diarrhea, Abdominal Pain Genitourinary: No: Dysuria Musculoskeletal: No: Pain Skin: No Rash Neurologic: No: Weakness Psychiatric: Positive: Substance Abuse, No: Depression Endocrine: No: Polydipsia Hematologic/Lymphatic: No: Easy Bruising Physical Exam Narrative GENERAL: No acute distress, nontoxic SKIN: Warm and dry. HEAD: Atraumatic. Normocephalic. EYES: Pupils equal and round. No scleral icterus. No injection or drainage. ENT: No nasal bleeding or discharge. Mucous membranes pink and moist. NECK: Trachea midline. No JVD. CARDIOVASCULAR: Regular rate and rhythm. No murmur appreciated. RESPIRATORY: No accessory muscle use. Clear to auscultation. Breath sounds equal bilaterally. GASTROINTESTINAL: Abdomen soft, tenderness to her epigastrium and right lower quadrant, nondistended MUSCULOSKELETAL: No obvious deformities. No clubbing. No cyanosis. No edema. NEUROLOGICAL: Awake and alert. No obvious cranial nerve deficits. Motor grossly within normal limits. Normal speech. PSYCHIATRIC: Appropriate mood and affect; insight and judgment normal. Data Data Last Documented VS Vital Signs Date Time Temp Pulse Resp B/P Pulse Ox O2 Delivery O2 Flow Rate FiO2 04/12/16 12:33 80 18 109/65 100 Room Air 04/12/16 08:20 97.4 Orders Complete Blood Count With Diff (04/12/16 08:56) Comprehensive Metabolic Panel (04/12/16 08:56) Lipase (04/12/16 08:56) Prothrombin Time / Inr (Pt) (04/12/16 08:56) Act Partial Throm Time (Ptt) (04/12/16 08:56) Urinalysis - C+S If Indicated (04/12/16 08:56) Ct Abd/Pel W Iv Contrast(Rout) (04/12/16 08:56) Iv Access Insert/Monitor (04/12/16 08:56) Ecg Monitoring (04/12/16 08:56) Sodium Chlor 0.9% 1000 Ml Inj (Ns 1000 M (04/12/16 08:56) Sodium Chloride 0.9% Flush (Ns Flush) (04/12/16 09:00) Ondansetron Inj (Zofran Inj) (04/12/16 09:00) Ed Urine Pregnancytest Poc (04/12/16 08:56) Lorazepam Inj (Ativan Inj) (04/12/16 09:00) C Diff Toxin Pcr (04/12/16 08:56) Oral Contrast - Adult (04/12/16 09:01) Diatrizoate Liq ( [place] Liq) (04/12/16 10:23) Ondansetron Inj (Zofran Inj) (04/12/16 10:45) Iohexol 350 Inj (Omnipaque 350 Inj) (04/12/16 11:41) Labs Laboratory Tests Test 04/12/16 04/12/16 09:05 09:20 Urine Color LIGHT-YELLOW Urine Turbidity CLEAR Urine pH 8.0 Urine Specific [place] 1.006 Urine Protein NEG mg/dL Urine Glucose (UA) NEG mg/dL Urine Ketones NEG mg/dL Urine Occult Blood NEG Urine Nitrite NEG Urine Bilirubin NEG Urine Urobilinogen LESS THAN 2.0 MG/DL Urine Leukocyte Esterase NEG Urine RBC 1 /hpf Urine WBC 6 /hpf Urine Squamous Epithelial 5 /hpf Cells Microscopic Urinalysis Comment CULT NOT INDICATED White Blood Count 5.7 TH/MM3 Red Blood Count 4.13 MIL/MM3 Hemoglobin 12.4 GM/DL Hematocrit 36.0 % Mean Corpuscular Volume 87.2 FL Mean Corpuscular Hemoglobin 29.9 PG Mean Corpuscular Hemoglobin 34.3 % Concent Red Cell Distribution Width 14.8 % Platelet Count 433 TH/MM3 Mean Platelet Volume 6.6 FL Neutrophils (%) (Auto) 52.0 % Lymphocytes (%) (Auto) 36.5 % Monocytes (%) (Auto) 4.5 % Eosinophils (%) (Auto) 4.4 % Basophils (%) (Auto) 2.6 % Neutrophils # (Auto) 3.0 TH/MM3 Lymphocytes # (Auto) 2.1 TH/MM3 Monocytes # (Auto) 0.3 TH/MM3 Eosinophils # (Auto) 0.3 TH/MM3 Basophils # (Auto) 0.1 TH/MM3 CBC Comment DIFF FINAL Differential Comment Prothrombin Time 12.7 SEC Prothromb Time International 1.1 RATIO Ratio Activated Partial 31.0 SEC Thromboplast Time Sodium Level 133 MEQ/L Potassium Level 4.3 MEQ/L Chloride Level 96 MEQ/L Carbon Dioxide Level 26.4 MEQ/L Anion Gap 11 MEQ/L Blood Urea Nitrogen 8 MG/DL Creatinine 1.04 MG/DL Estimat Glomerular Filtration 58 ML/MIN Rate Random Glucose 90 MG/DL Calcium Level 8.4 MG/DL Total Bilirubin 0.3 MG/DL Aspartate Amino Transf 37 U/L (AST/SGOT) Alanine Aminotransferase 44 U/L (ALT/SGPT) Alkaline Phosphatase 100 U/L Total Protein 7.3 GM/DL Albumin 3.8 GM/DL Lipase 130 U/L [facility] Medical Decision Making Medical Screen Exam Complete: Yes Emergency Medical Condition: Yes Interpretation(s) Vital Signs Date Time Temp Pulse Resp B/P Pulse Ox O2 Delivery O2 Flow Rate FiO2 04/12/16 08:20 97.4 80 16 124/80 100 Room Air Differential Diagnosis Pancreatitis, appendicitis, gastroenteritis, electrolyte abnormality, alcoholism , Cdiff colitis, alcohol withdrawal seizure Narrative Course Patient is a 40-year-old female who presents to emergency room with multiple complaints. Patient reports that she has been having increased nausea vomiting and diarrhea for the past 2 weeks. Patient with no sick contacts, denies any antibiotic ingestion. Patient with history of C. difficile in the past - C. difficile culture ordered. Labs as well as CAT scan of the abdomen and pelvis ordered for further evaluation of abdominal pain with nausea and vomiting and diarrhea. Lipase ordered as patient has history of alcoholic pancreatitis - patient currently reports that she relapsed and started drinking heavily 1 week ago. IV fluids as well as antiemetics ordered for patient. Also concern for possible alcohol withdrawal symptoms as she feels "shaky." Will order a dose of Ativan for patient Patient reevaluated, patient reports that she is feeling much better. Abdomen is soft, nontender, nondistended, no peritoneal signs. CBC & BMP Diagram 04/12/16 09:20 Last Impressions Abdomen/Pelvis CT 04/12/16 0856 Signed Impressions: Service Date/Time: Tuesday, April 12, 2016 11:28 - CONCLUSION: 1. No definite abnormality is identified to explain the clinical symptoms and there are no findings to definitively indicate obstruction. However, the small bowel appearance is not completely normal. There are differing sizes of small bowel visualized. Some loops of small bowel in the pelvis contain fecal-like material which is an abnormal finding. Additionally, the colon is completely decompressed. These changes can be seen with a low-grade partial obstruction. Consider clinical followup to ensure resolution of symptoms and consider followup CT if symptoms persist. 2. Remainder of the examination demonstrates no abnormality. Charlie Martell MD CT of the abdomen and pelvis with possible low-grade partial obstruction, patient reports that she is able to eat and drink, although small bowel obstruction is in the differential - patient is able to tolerate fluids at this time. cbc: wbc: 5.7 Hemoglobin 12.4 Hematocrit 36 Platelets 433 BMP sodium 133 Chloride 96 Potassium 4.3 BUN 8 Creatinine 1.04 Lipase 130 UA: neg nitrites, neg leuk esteraste Signs and symptoms of acute abdomen reviewed with patient in detail. She will follow-up with primary care doctor and return to emergency reviewed as needed. Patient should to stop drinking alcohol, patient given prescription for Librium to help with her alcohol detox. Diagnosis Primary Impression: Abdominal pain Qualified Code: R10.84 - Generalized abdominal pain Additional Impressions: Dehydration, moderate Alcohol withdrawal Qualified Code: F10.230 - Alcohol withdrawal, uncomplicated Referrals: [facility] Patient Instructions: General Instructions Additional Instructions: Please follow-up with your primary care doctor as soon as possible Return to emergency room if symptoms progress or worsen Please stop drinking alcohol Scripts Ondansetron Odt (Zofran Odt)4 Mg Tab4 Mg SL Q6HR PRN (Nausea/Vomiting) #30 TAB Ref 0 Prov:Verónica Calderon DO 04/12/16 Chlordiazepoxide 25 Mg Cap25 Mg PO QID PRN (ETHANOL WITHDRAWAL) #20 CAP Ref 0 Prov:Verónica Calderon DO 04/12/16 Disposition: 01 DISCHARGE HOME Condition: Stable Verónica Calderon DO Apr 12, 2016 09:42
[2016-04-12 09:44] LABS: BLOOD, URINE NEG (NEG); COMMENT (UR) CULT NOT INDICATED; CULTURE IF INDICATED CULT NOT INDICATED; GLUCOSE,URINE NEG (NEG); KETONE, URINE NEG (NEG); NITRITE,URINE NEG (NEG); SQUAMOUS EPITHELIAL CELL URINE 5 /hpf (0-5); URINE COLOR LIGHT-YELLOW (YELLW/STRAW)
[2016-04-12 09:47] LABS: INTERNATIONAL NORMALIZED RATIO 1.1 RATIO; PROTHROMBIN TIME - PATIENT 12.7 SEC (9.8-11.6)
[2016-04-12 09:58] LABS: ANION GAP 11 MEQ/L (5-15); AST (GOT) 37 U/L (15-37); BICARBONATE 26.4 MEQ/L (21.0-32.0); BLOOD UREA NITROGEN 8 MG/DL (7-18); CHLORIDE 96 MEQ/L (98-107); GLOMERULAR FILTRATION RATE 58 ML/MIN (>89); POTASSIUM 4.3 MEQ/L (3.5-5.1); SODIUM (NA) 133 MEQ/L (136-145)
[2016-04-12 10:16] LABS: ALKALINE PHOSPHATASE 100 U/L (45-117); ALT (GPT) 44 U/L (10-53); TOTAL BILIRUBIN ADULT 0.3 MG/DL (0.2-1.0)
[2016-04-12] MEDS ORDERED: DIATRIZOATE MEGLUM/DIATRIZOATE SOD 9 ML CUP ONE (10:23)
[2016-04-12] MEDS ORDERED: ONDANSETRON HCL 4 MG/2 ML VIAL IV PUSH ONE (10:45)
[2016-04-12] MEDS ORDERED: IOHEXOL 350 MG/ML 10 ML VIAL (for RAD DIAG) IV ONE (11:41)
--- NOTE | 2016-04-12 12:15 | RADRPT ---
EXAM DATE/TIME: 04/12/2016 11:28 [facility] COMPARISON: CT ABDOMEN & PELVIS W CONTRAST, January 21, 2016, 20:54. INDICATIONS : Nausea, vomiting for 5 days IV CONTRAST: 85 cc Omnipaque 350 (iohexol) IV ORAL CONTRAST: Partial prescribed oral contrast ingested. RADIATION DOSE: 9.96 CTDIvol (mGy) MEDICAL HISTORY : Pancreatitis. malignant melanoma SURGICAL HISTORY : None. ENCOUNTER: Initial ACUITY: 4 - 6 days PAIN SCALE: 3/10 LOCATION: upper quadrant TECHNIQUE: Volumetric scanning of the abdomen and pelvis was performed. Using automated exposure control and ad justment of the mA and/or kV according to patient size, radiation dose was kept as low as reasonably achievable to obtain optimal diagnostic quality images. FINDINGS: LOWER LUNGS: The visualized lower lungs are clear. LIVER: Homogeneous density without lesion. There is no dilation of the biliary tree. No calcified gallston es. SPLEEN: Normal size without lesion. PANCREAS: Within normal limits. KIDNEYS: Normal in size and shape. There is no mass, stone or hydronephrosis. ADRENAL GLANDS: Within normal limits. VASCULAR: There is no aortic aneurysm. BOWEL/MESENTERY: The stomach has a normal appearance. There is differing diameter of small bowel within areas of the a bdomen and pelvis without any abnormally dilated segments. Terminal ileum is not clearly visualized a nd appendix is not visualized. There are small bowel loops in the pelvis that contains fluid and feca l-like material. Colon is decompressed. No free air or free fluid is present. ABDOMINAL WALL: Within normal limits. RETROPERITONEUM: There is no lymphadenopathy. BLADDER: No wall thickening or mass. REPRODUCTIVE: Within normal limits. IUD is present. INGUINAL: There is no lymphadenopathy or hernia. MUSCULOSKELETAL: No acute osseous abnormality is identified. CONCLUSION: 1. No definite abnormality is identified to explain the clinical symptoms and there are no findings t o definitively indicate obstruction. However, the small bowel appearance is not completely normal. Th ere are differing sizes of small bowel visualized. Some loops of small bowel in the pelvis contain fe francisco-like material which is an abnormal finding. Additionally, the colon is completely decompressed. T hese changes can be seen with a low-grade partial obstruction. Consider clinical followup to ensure r esolution of symptoms and consider followup CT if symptoms persist. 2. Remainder of the examination demonstrates no abnormality. Charlie Martell MD on April 12, 2016 at 12:03 Board Certified Radiologist. This report was verified electronically.
[2016-04-12 12:33] VITALS: BP 109/65; PULSE 80; RESP 18; O2SAT 100
[2016-04-12] MEDS ORDERED: ZOFR4TAB3 SL (13:51)
[2016-04-12] MEDS ORDERED: CHLO25CA2 PO (13:51)
[2016-04-12 14:17] VITALS: BP 136/82; TEMP 98.3
== END 2016-04-12 14:05 | disposition home or self-care (01) ==
LOC: NEPC 08:18
DX: R10.84 Generalized abdominal pain (principal); E86.0 Dehydration; F10.230 Alcohol dependence with withdrawal, uncomplicated
CPT/HCPCS: 74177; 80053; 81001; 83690; 84703; 85025; 85610; 85730; 96372; 96374; 96375; 99284; J2060; J2405; J7030; Q9963; Q9967

== ENCOUNTER 2016-05-21 09:02 | Inpatient (IN) | payer OTHER ==
[~2016-05-21] VITALS: Ht 157.5 cm; Wt 42.5 kg
[~2016-05-21 09:02] MED LIST changes: +CHLO25CA2 PO; -CLON0.5T PO; +CLON1 PO; -CLOTR1%T TOPICAL; -GABA100C4 PO; -PROT40TA PO; -REGL10TA5 PO
[2016-05-21 09:04] VITALS: BP 121/84; PULSE 142; RESP 20; TEMP 98.9; O2SAT 91
[2016-05-21] MEDS ORDERED: SODIUM CHLOR 0.9% 1000 ML INJ 1,000 ML IV SCH (11:31)
[2016-05-21] MEDS ORDERED: TRAZ100T4 PO (11:39)
[2016-05-21] MEDS ORDERED: HYDR-3580 PO (11:39)
[2016-05-21] MEDS ORDERED: SODIUM CHLORIDE 0.9% FLUSH 10 ML FLUSH IV FLUSH PRN ×2 (11:45→15:15)
[2016-05-21] MEDS ORDERED: ONDANSETRON HCL 4 MG/2 ML VIAL IVP ONE (11:45)
--- NOTE | 2016-05-21 11:53 | PD ---
HPI Chief Complaint: Pain: Acute or Chronic Time Seen by Provider: 11:30 Travel History International Travel<30 days: No Contact w/Intl Traveler<30days: No Traveled to known affect area: No History of Present Illness HPI Patient comes to emergency department requesting detox after falling out of bed this morning. Patient states that she is a chronic alcoholic drinking approximately 1 pint of vodka a day. Patient states she had a couple drinks prior to coming to the emergency department just to help with the shakes as well as her back pain from falling out of bed. Patient with history of chronic back pain got worse after she fell out of bed this morning. Patient states that her roommate heard her fall out of bed. Patient states she awoke from a fall. Pain is left lower lateral lumbar occasionally radiates down into her leg. Denies any loss of bowel or bladder, numbness or tingling anywhere, abdominal pain, headache, chest pain, shortness of breath. Patient states she has not ate anything in the past 12 days secondary to her drinking. PFSH Past Medical History Hx Anticoagulant Therapy: No Anemia: Yes Arthritis: Yes Asthma: No Blood Disorders: No Bipolar Disorder: Yes Anxiety: Yes Depression: Yes Heart Rhythm Problems: No Cancer: No Cardiovascular Problems: No High Cholesterol: No Chemotherapy: No Chest Pain: No Congestive Heart Failure: No Cirrhosis: Yes (DX WITH FATTY LIVER 10-15 YEARS AGO) COPD: No Cerebrovascular Accident: No Developmental Delay: No Diabetes: No Diminished Hearing: No Endocrine: No Gastrointestinal Disorders: Yes (DELAYED GASTRIC EMPTYING, ) GERD: Yes Genitourinary: No Hiatal Hernia: Yes Hypertension: No Immune Disorder: No Implanted Vascular Access Dvce: No Insomnia: Yes Kidney Stones: No Musculoskeletal: No Neurologic: No Psychiatric: Yes Reproductive: No Respiratory: No Integumentary: Yes (07/2010- MRSA TO BILATERAL ARMS) Immunizations Current: Yes Migraines: Yes Myocardial Infarction: No Pancreatitis: Yes Radiation Therapy: No Renal Failure: No Seizures: No Sleep Apnea: No Thyroid Disease: No Ulcer: Yes ?: Not LMP: IUD : 3 Para: 1 Miscarriage: 1 : 1 Past Surgical History AICD: No Arteriovenous Shunt: No Cardiac Surgery: No Eye Surgery: Yes (PT STATES SHE HAD EYE SURGERY FOR "LAZY EYE" WHEN SHE WAS 3 YEARS OLD.) Hysterectomy: No Insulin Pump: No Joint Replacement: No Neurologic Surgery: No Pacemaker: No Thoracic Surgery: No Social History Alcohol Use: Yes (CHRONIC ALCOHOLIC) Tobacco Use: No Substance Use: No Allergies-Medications (Allergen,Severity, Reaction): Coded Allergies: [place] (Verified Allergy, Severe, Seizures, 05/21/16) Morphine (Verified Adverse Reaction, Severe, Hives, 05/21/16) *MDRO Multi-Drug Resistant Organism (Verified Adverse Reaction, Unknown, Cleared 01/12/16, 05/21/16) MRSA (skin) - 07/2010 MRSA PCR Screens NEGATIVE - 12/10/15 & 01/12/16 Cleared per Infection Control Reported Meds & Prescriptions Reported Meds & Active Scripts Active Chlordiazepoxide (Chlordiazepoxide HCl) 25 Mg Cap 25 Mg PO QID PRN Ventolin Hfa 18 GM Inh (Albuterol Sulfate) 90 Mcg/Act Aer 1 Puff INH Q4H PRN Trazodone (Trazodone HCl) 50 Mg Tab 150 Mg PO HS PRN Reported Hydrocodone-Acetaminophen 7.5-325 mg Tab 1 Tab PO Q4H PRN Trazodone (Trazodone HCl) 100 Mg Tab 200 Mg PO HS Klonopin (Clonazepam) 1 Mg Tab 1 Mg PO BID Prozac (Fluoxetine HCl) 20 Mg Cap 40 Mg PO DAILY Review of Systems Except as stated in HPI: all other systems reviewed are Neg Physical Exam Narrative GENERAL: Well-developed, under nourished, in no acute distress, and non-ill appearing. SKIN: Focused skin assessment warm and dry. HEAD: Atraumatic. Normocephalic. EYES: Pupils equal and round. EOMI. No scleral icterus. No injection or drainage. ENT: No nasal bleeding or discharge. Mucous membranes pink and moist. NECK: Trachea midline. No JVD. Supple. No nuclear rigidity. CARDIOVASCULAR: Regular rate and rhythm. No murmur appreciated. RESPIRATORY: No accessory muscle use. No respiratory distress. Clear to auscultation. Breath sounds equal bilaterally. GASTROINTESTINAL: Abdomen soft, non-tender, nondistended. Hepatic and splenic margins not palpable. Normal bowel sounds 4. No pulsatile mass. MUSCULOSKELETAL: No obvious deformities. No clubbing. No cyanosis. No edema. Full range of motion. NEUROLOGICAL: Awake and alert. No obvious cranial nerve deficits. Motor grossly within normal limits. Normal speech. PSYCHIATRIC: Appropriate mood and affect; insight and judgment normal. Data Data Last Documented VS Vital Signs Date Time Temp Pulse Resp B/P Pulse Ox O2 Delivery O2 Flow Rate FiO2 05/21/16 13:59 102 21 138/90 98 Room Air 05/21/16 09:04 98.9 Orders Complete Blood Count With Diff (05/21/16 11:31) Comprehensive Metabolic Panel (05/21/16 11:31) Lipase (05/21/16 11:31) Prothrombin Time / Inr (Pt) (05/21/16 11:31) Act Partial Throm Time (Ptt) (05/21/16 11:31) Urinalysis - C+S If Indicated (05/21/16 11:31) Iv Access Insert/Monitor (05/21/16 11:31) Ecg Monitoring (05/21/16 11:31) Oximetry (05/21/16 11:31) Ondansetron Inj (Zofran Inj) (05/21/16 11:45) Sodium Chlor 0.9% 1000 Ml Inj (Ns 1000 M (05/21/16 11:31) Sodium Chloride 0.9% Flush (Ns Flush) (05/21/16 11:45) Electrocardiogram (05/21/16 11:31) Chest, Single Ap (05/21/16 11:31) Spine, Lumbar - Ltd (Ap & Lat) (05/21/16 ) Vascular Access Team Consult PRN (05/21/16 11:31) Drug Screen, Random Urine (05/21/16 11:31) Alcohol (Ethanol) (05/21/16 11:31) Vascular Poc Ultrasound (05/21/16 ) Creatine Kinase (Cpk) (05/21/16 11:36) Ct Brain W/O Iv Contrast(Rout) (05/21/16 ) Ct Cerv Spine W/O Contrast (05/21/16 ) Apply Cervical Collar (05/21/16 11:41) Lorazepam Inj (Ativan Inj) (05/21/16 12:45) Lactic Acid Sepsis Protocol (05/21/16 12:53) Blood Culture (05/21/16 12:53) Vancomycin Inj (Vancomycin Inj) (05/21/16 12:53) Piperacil-Tazo 4.5 Gm Premix (Zosyn 4.5 (05/21/16 12:53) Ketorolac Inj (Toradol Inj) (05/21/16 14:00) Ct Abd/Pel W Iv Contrast(Rout) (05/21/16 ) Sodium Chlor 0.9% 1000 Ml Inj (Ns 1000 M (05/21/16 14:15) Lorazepam Inj (Ativan Inj) (05/21/16 14:15) Admit Order (Ed Use Only) (05/21/16 14:31) Labs Laboratory Tests Test 05/21/16 05/21/16 05/21/16 11:50 12:00 13:10 Prothrombin Time 10.7 SEC Prothromb Time International 1.0 RATIO Ratio Activated Partial 30.6 SEC Thromboplast Time Sodium Level 137 MEQ/L Potassium Level 3.8 MEQ/L Chloride Level 97 MEQ/L Carbon Dioxide Level 29.7 MEQ/L Anion Gap 10 MEQ/L Blood Urea Nitrogen 3 MG/DL Creatinine 0.90 MG/DL Estimat Glomerular Filtration 69 ML/MIN Rate Random Glucose 101 MG/DL Calcium Level 8.1 MG/DL Total Bilirubin 0.3 MG/DL Aspartate Amino Transf 31 U/L (AST/SGOT) Alanine Aminotransferase 20 U/L (ALT/SGPT) Alkaline Phosphatase 174 U/L Total Creatine Kinase 81 U/L Total Protein 7.4 GM/DL Albumin 3.1 GM/DL Lipase 91 U/L Ethyl Alcohol Level 204 MG/DL White Blood Count 26.0 TH/MM3 Red Blood Count 3.87 MIL/MM3 Hemoglobin 11.6 GM/DL Hematocrit 34.4 % Mean Corpuscular Volume 88.9 FL Mean Corpuscular Hemoglobin 30.0 PG Mean Corpuscular Hemoglobin 33.7 % Concent Red Cell Distribution Width 14.3 % Platelet Count 285 TH/MM3 Mean Platelet Volume 7.0 FL Neutrophils (%) (Auto) 91.6 % Lymphocytes (%) (Auto) 5.3 % Monocytes (%) (Auto) 2.1 % Eosinophils (%) (Auto) 0.6 % Basophils (%) (Auto) 0.4 % Neutrophils # (Auto) 23.8 TH/MM3 Lymphocytes # (Auto) 1.4 TH/MM3 Monocytes # (Auto) 0.5 TH/MM3 Eosinophils # (Auto) 0.1 TH/MM3 Basophils # (Auto) 0.1 TH/MM3 CBC Comment DIFF FINAL Differential Comment Urine Color LIGHT-YELLOW Urine Turbidity CLEAR Urine pH 7.5 Urine Specific [place] 1.003 Urine Protein NEG mg/dL Urine Glucose (UA) NEG mg/dL Urine Ketones NEG mg/dL Urine Occult Blood NEG Urine Nitrite NEG Urine Bilirubin NEG Urine Urobilinogen LESS THAN 2.0 MG/DL Urine Leukocyte Esterase NEG Urine RBC 1 /hpf Urine WBC LESS THAN 1 /hpf Urine Squamous Epithelial 2 /hpf Cells Urine Bacteria RARE /hpf Microscopic Urinalysis Comment CULT NOT INDICATED Urine Opiates Screen NEG Urine Barbiturates Screen NEG Urine Amphetamines Screen NEG Urine Benzodiazepines Screen POS Urine Cocaine Screen NEG Urine Cannabinoids Screen NEG Lactic Acid Level 2.4 mmol/L MDM Medical Decision Making Medical Screen Exam Complete: Yes Emergency Medical Condition: Yes Interpretation(s) EKG reviewed by Dr. Maldonado shows sinus rhythm with a ventricular rate of 99. No STEMI. Differential Diagnosis Alcohol intoxication, electrolyte abnormality, UTI, fracture, strain, acute on chronic back pain, other Narrative Course Patient was seen and examined. Initial laboratory and radiological studies were obtained and reviewed with CT the abdomen pending currently. Patient is given IV fluids, IV Ativan, IV antibiotics, and IV Toradol. Discussed patient with Dr. Hunt, Evaluate Patient. Recommends Having Patient Admitted for Sepsis of Unknown Source Secondary to Labs and Vitals. Discussed all findings and plan of care with patient who was agreeable for admission. All questions were answered. CT results obtained results relayed to Dr. Bowman. Sepsis Criteria SIRS Criteria (2 or more): Heart rate over 90, WBC > 11406, < 4000 or > 10% bands Severe Sepsis (+one): Lactate >2 Physician Communication Physician Communication [id number] Bowman, who is agreeable to admit the patient. Diagnosis Primary Impression: Sepsis Qualified Code: A41.9 - Sepsis, due to unspecified organism Admitting Information Admitting Physician Requests: Admit Condition: Stable Anthony Cain May 21, 2016 11:53
[2016-05-21 12:00] VITALS: BP 112/78; PULSE 102; RESP 19; O2SAT 98
[2016-05-21 12:21] LABS: AUTOMATED NEUTROPHIL # 23.8 TH/MM3 (1.8-7.7); BASOPHIL # 0.1 TH/MM3 (0-0.2); BASOPHIL % 0.4 % (0.0-2.0); EOSINOPHIL # 0.1 TH/MM3 (0-0.4); EOSINOPHIL % 0.6 % (0.0-4.0); HEMATOCRIT 34.4 % (35.0-46.0); HEMO FLAGS DIFF FINAL; LYMPH % 5.3 % (9.0-44.0); LYMPHOCYTE # 1.4 TH/MM3 (1.0-4.8); MEAN CELL VOLUME 88.9 FL (80.0-100.0); MEAN CORPUSCULAR HGB CONC 33.7 % (32.0-36.0); MONO % 2.1 % (0.0-8.0); NEUT % 91.6 % (16.0-70.0); PLATELET COUNT 285 TH/MM3 (150-450); RED BLOOD COUNT 3.87 MIL/MM3 (4.00-5.30); RED CELL DISTRIBUTION WIDTH 14.3 % (11.6-17.2)
[2016-05-21 12:27] LABS: APTT (PATIENT) 30.6 SEC (24.3-30.1); PROTHROMBIN TIME - PATIENT 10.7 SEC (9.8-11.6)
--- NOTE | 2016-05-21 12:27 | RADRPT ---
EXAM DATE/TIME: 05/21/2016 12:21 [facility] COMPARISON: CHEST SINGLE AP, February 06, 2016, 8:29. INDICATIONS : Chest pain MEDICAL HISTORY : None. SURGICAL HISTORY : None. ENCOUNTER: Initial ACUITY: 1 day PAIN SCORE: 4/10 LOCATION: Bilateral chest FINDINGS: A single view of the chest demonstrates the lungs to be symmetrically aerated without evidence of mas s, infiltrate or effusion. The cardiomediastinal contours are unremarkable. Osseous structures are intact. CONCLUSION: No acute disease. Pascual Rosales MD on May 21, 2016 at 12:25 Board Certified Radiologist. This report was verified electronically.
--- NOTE | 2016-05-21 12:27 | RADRPT ---
EXAM DATE/TIME: 05/21/2016 12:23 [facility] COMPARISON: No previous studies available for comparison. INDICATIONS : LOw back pain after fall MEDICAL HISTORY : None. SURGICAL HISTORY : None. ENCOUNTER: Initial ACUITY: 1 day PAIN SCORE: 3/10 LOCATION: Lumbar spine FINDINGS: Two view examination was performed. There are five non-rib bearing vertebral bodies. The vertebral bodies are in normal alignment without evidence of subluxation or scoliosis. The disc spaces are keith ntained. The pedicles are intact. Bony mineralization is normal. No fracture is identified. IUD de vice overlies the pelvis. CONCLUSION: No acute disease. Pascual Rosales MD on May 21, 2016 at 12:26 Board Certified Radiologist. This report was verified electronically.
[2016-05-21 12:29] LABS: BACTERIA, URINE RARE /hpf; BLOOD, URINE NEG (NEG); COMMENT (UR) CULT NOT INDICATED; CULTURE IF INDICATED CULT NOT INDICATED; GLUCOSE,URINE NEG (NEG); KETONE, URINE NEG (NEG); NITRITE,URINE NEG (NEG); PH, URINE 7.5 (5.0-8.5); SQUAMOUS EPITHELIAL CELL URINE 2 /hpf (0-5); URINE COLOR LIGHT-YELLOW (YELLW/STRAW)
[2016-05-21 12:38] LABS: ALT (GPT) 20 U/L (10-53); ANION GAP 10 MEQ/L (5-15); AST (GOT) 31 U/L (15-37); BICARBONATE 29.7 MEQ/L (21.0-32.0); BLOOD UREA NITROGEN 3 MG/DL (7-18); CHLORIDE 97 MEQ/L (98-107); GLOMERULAR FILTRATION RATE 69 ML/MIN (>89); POTASSIUM 3.8 MEQ/L (3.5-5.1); SODIUM (NA) 137 MEQ/L (136-145)
[2016-05-21 12:44] LABS: AMPHETAMINE, URINE NEG (NEG); BARBITURATES, URINE NEG (NEG); COCAINE, URINE NEG (NEG)
[2016-05-21] MEDS ORDERED: LORazepam 2 MG/ML VIAL IV PUSH ONE ×2 (12:45→14:15)
[2016-05-21 12:53] LABS: ALKALINE PHOSPHATASE 174 U/L (45-117); TOTAL BILIRUBIN ADULT 0.3 MG/DL (0.2-1.0)
[2016-05-21] MEDS ORDERED: VANCOMYCIN INJ 1,000 MG in SODIUM CHLOR 0.9% 250 ML INJ 250 ML IV STA (12:53)
[2016-05-21] MEDS ORDERED: PIPERACIL-TAZO 4.5 GM PREMIX 100 ML IV STA (12:53)
--- NOTE | 2016-05-21 13:08 | RADRPT ---
EXAM DATE/TIME: 05/21/2016 12:43 [facility] COMPARISON: CT BRAIN W/O CONTRAST, December 09, 2015, 16:33. INDICATIONS : Trauma, fell out of bed last night. RADIATION DOSE: 56.77 CTDIvol (mGy) MEDICAL HISTORY : Cirrhosis. Head trauma. SURGICAL HISTORY : None. ENCOUNTER: Initial ACUITY: 1 day PAIN SCALE: 3/10 LOCATION: cranial TECHNIQUE: Multiple contiguous axial images were obtained of the head. Using automated exposure control and adj ustment of the mA and/or kV according to patient size, radiation dose was kept as low as reasonably a chievable to obtain optimal diagnostic quality images. FINDINGS: CEREBRUM: The ventricles are normal for age. No evidence of midline shift, mass lesion, hemorrhage or acute in farction. No extra-axial fluid collections are seen. POSTERIOR FOSSA: The cerebellum and brainstem are intact. The 4th ventricle is midline. The cerebellopontine angle i s unremarkable. EXTRACRANIAL: The visualized portion of the orbits is intact. SKULL: The calvaria is intact. No evidence of skull fracture. CONCLUSION: No acute disease. No significant change has occurred. Tanner Harrison MD on May 21, 2016 at 13:05 Board Certified Radiologist. This report was verified electronically.
--- NOTE | 2016-05-21 13:19 | RADRPT ---
EXAM DATE/TIME: 05/21/2016 12:43 [facility] COMPARISON: No previous studies available for comparison. INDICATIONS : Trauma, fell out of bed last night. RADIATION DOSE: 23.8 CTDIvol (mGy) MEDICAL HISTORY : Cirrhosis. Head trauma. SURGICAL HISTORY : None. ENCOUNTER: Initial ACUITY: 1 day PAIN SCALE: 4/10 LOCATION: neck TECHNIQUE: Volumetric scanning of the cervical spine was performed. Multiplanar reconstructions in the sagittal, coronal and oblique axial planes were performed. Using automated exposure control and adjustment o f the mA and/or kV according to patient size, radiation dose was kept as low as reasonably achievable to obtain optimal diagnostic quality images. FINDINGS: There is normal sagittal spine alignment of the cervical spine. No anterolisthesis or retrolisthesis is present. The atlantoaxial relationship is within normal limits. There is no prevertebral soft tiss ue swelling present. No fracture or dislocation is identified. No disc herniation is visualized in th e upper cervical spine. The visualized portions of the posterior fossa, paraspinous soft tissues, and upper lung zones demons trate no acute abnormality. CONCLUSION: No acute cervical spine abnormality is identified. Charlie Martell MD on May 21, 2016 at 13:15 Board Certified Radiologist. This report was verified electronically.
[2016-05-21 13:59] VITALS: BP 138/90; PULSE 102; RESP 21; O2SAT 98
[2016-05-21] MEDS ORDERED: KETOROLAC TROMETHAMINE 30 MG/ML (IVP) VIAL IV PUSH ONE (14:00)
[2016-05-21] MEDS ORDERED: SODIUM CHLOR 0.9% 1000 ML INJ 1,000 ML IV ONE (14:15)
--- NOTE | 2016-05-21 14:56 | PD ---
Physical Exam Narrative GENERAL: 40 y/o female patient. SKIN: Warm and dry. HEAD: Normocephalic and atraumatic. EYES: No injection or drainage. ENT: No nasal drainage noted. NECK: Supple, trachea midline. CARDIOVASCULAR: Tachycardic rate and regular rhythm RESPIRATORY: Breath sounds equal bilaterally at apices. No accessory muscle use. GASTROINTESTINAL: Abdomen soft, nondistended NEUROLOGICAL: Awake and alert. Motor and sensory grossly within normal limits. Normal speech. Data Data Last Documented VS Vital Signs Date Time Temp Pulse Resp B/P Pulse Ox O2 Delivery O2 Flow Rate FiO2 05/21/16 13:59 102 21 138/90 98 Room Air 05/21/16 09:04 98.9 Orders Complete Blood Count With Diff (05/21/16 11:31) Comprehensive Metabolic Panel (05/21/16 11:31) Lipase (05/21/16 11:31) Prothrombin Time / Inr (Pt) (05/21/16 11:31) Act Partial Throm Time (Ptt) (05/21/16 11:31) Urinalysis - C+S If Indicated (05/21/16 11:31) Iv Access Insert/Monitor (05/21/16 11:31) Ecg Monitoring (05/21/16 11:31) Oximetry (05/21/16 11:31) Ondansetron Inj (Zofran Inj) (05/21/16 11:45) Sodium Chlor 0.9% 1000 Ml Inj (Ns 1000 M (05/21/16 11:31) Sodium Chloride 0.9% Flush (Ns Flush) (05/21/16 11:45) Electrocardiogram (05/21/16 11:31) Chest, Single Ap (05/21/16 11:31) Spine, Lumbar - Ltd (Ap & Lat) (05/21/16 ) Vascular Access Team Consult PRN (05/21/16 11:31) Drug Screen, Random Urine (05/21/16 11:31) Alcohol (Ethanol) (05/21/16 11:31) Vascular Poc Ultrasound (05/21/16 ) Creatine Kinase (Cpk) (05/21/16 11:36) Ct Brain W/O Iv Contrast(Rout) (05/21/16 ) Ct Cerv Spine W/O Contrast (05/21/16 ) Apply Cervical Collar (05/21/16 11:41) Lorazepam Inj (Ativan Inj) (05/21/16 12:45) Lactic Acid Sepsis Protocol (05/21/16 12:53) Blood Culture (05/21/16 12:53) Vancomycin Inj (Vancomycin Inj) (05/21/16 12:53) Piperacil-Tazo 4.5 Gm Premix (Zosyn 4.5 (05/21/16 12:53) Ketorolac Inj (Toradol Inj) (05/21/16 14:00) Ct Abd/Pel W Iv Contrast(Rout) (05/21/16 ) Sodium Chlor 0.9% 1000 Ml Inj (Ns 1000 M (05/21/16 14:15) Lorazepam Inj (Ativan Inj) (05/21/16 14:15) Admit Order (Ed Use Only) (05/21/16 14:31) Labs Laboratory Tests Test 05/21/16 05/21/16 05/21/16 11:50 12:00 13:10 Prothrombin Time 10.7 SEC Prothromb Time International 1.0 RATIO Ratio Activated Partial 30.6 SEC Thromboplast Time Sodium Level 137 MEQ/L Potassium Level 3.8 MEQ/L Chloride Level 97 MEQ/L Carbon Dioxide Level 29.7 MEQ/L Anion Gap 10 MEQ/L Blood Urea Nitrogen 3 MG/DL Creatinine 0.90 MG/DL Estimat Glomerular Filtration 69 ML/MIN Rate Random Glucose 101 MG/DL Calcium Level 8.1 MG/DL Total Bilirubin 0.3 MG/DL Aspartate Amino Transf 31 U/L (AST/SGOT) Alanine Aminotransferase 20 U/L (ALT/SGPT) Alkaline Phosphatase 174 U/L Total Creatine Kinase 81 U/L Total Protein 7.4 GM/DL Albumin 3.1 GM/DL Lipase 91 U/L Ethyl Alcohol Level 204 MG/DL White Blood Count 26.0 TH/MM3 Red Blood Count 3.87 MIL/MM3 Hemoglobin 11.6 GM/DL Hematocrit 34.4 % Mean Corpuscular Volume 88.9 FL Mean Corpuscular Hemoglobin 30.0 PG Mean Corpuscular Hemoglobin 33.7 % Concent Red Cell Distribution Width 14.3 % Platelet Count 285 TH/MM3 Mean Platelet Volume 7.0 FL Neutrophils (%) (Auto) 91.6 % Lymphocytes (%) (Auto) 5.3 % Monocytes (%) (Auto) 2.1 % Eosinophils (%) (Auto) 0.6 % Basophils (%) (Auto) 0.4 % Neutrophils # (Auto) 23.8 TH/MM3 Lymphocytes # (Auto) 1.4 TH/MM3 Monocytes # (Auto) 0.5 TH/MM3 Eosinophils # (Auto) 0.1 TH/MM3 Basophils # (Auto) 0.1 TH/MM3 CBC Comment DIFF FINAL Differential Comment Urine Color LIGHT-YELLOW Urine Turbidity CLEAR Urine pH 7.5 Urine Specific [place] 1.003 Urine Protein NEG mg/dL Urine Glucose (UA) NEG mg/dL Urine Ketones NEG mg/dL Urine Occult Blood NEG Urine Nitrite NEG Urine Bilirubin NEG Urine Urobilinogen LESS THAN 2.0 MG/DL Urine Leukocyte Esterase NEG Urine RBC 1 /hpf Urine WBC LESS THAN 1 /hpf Urine Squamous Epithelial 2 /hpf Cells Urine Bacteria RARE /hpf Microscopic Urinalysis Comment CULT NOT INDICATED Urine Opiates Screen NEG Urine Barbiturates Screen NEG Urine Amphetamines Screen NEG Urine Benzodiazepines Screen POS Urine Cocaine Screen NEG Urine Cannabinoids Screen NEG Lactic Acid Level 2.4 mmol/L MDM Supervised Visit with TD: Yes Interpretation(s) CBC & BMP Diagram 05/21/16 11:50 05/21/16 12:00 Last 24 hours Impressions Chest X-Ray 05/21/16 1131 Signed Impressions: Service Date/Time: Saturday, May 21, 2016 12:21 - CONCLUSION: No acute disease. Pascual Rosales MD Lumbar Spine X-Ray 05/21/16 0000 Signed Impressions: Service Date/Time: Saturday, May 21, 2016 12:23 - CONCLUSION: No acute disease. Pascual Rosales MD Head CT 05/21/16 0000 Signed Impressions: Service Date/Time: Saturday, May 21, 2016 12:43 - CONCLUSION: No acute disease. No significant change has occurred. Tanner Harrison MD Cervical Spine CT 05/21/16 0000 Signed Impressions: Service Date/Time: Saturday, May 21, 2016 12:43 - CONCLUSION: No acute cervical spine abnormality is identified. Charlie Martell MD Last 24 hours Impressions Chest X-Ray 05/21/16 1131 Signed Impressions: Service Date/Time: Saturday, May 21, 2016 12:21 - CONCLUSION: No acute disease. Pascual Rosales MD Lumbar Spine X-Ray 05/21/16 Signed Impressions: Service Date/Time: Saturday, May 21, 2016 12:23 - CONCLUSION: No acute disease. Pascual Rosales MD Head CT 05/21/16 Signed Impressions: Service Date/Time: Saturday, May 21, 2016 12:43 - CONCLUSION: No acute disease. No significant change has occurred. Tanner Harrison MD Cervical Spine CT 05/21/16 Signed Impressions: Service Date/Time: Saturday, May 21, 2016 12:43 - CONCLUSION: No acute cervical spine abnormality is identified. Charlie Martell MD Abdomen/Pelvis CT 05/21/16 Signed Impressions: Service Date/Time: Saturday, May 21, 2016 14:53 - CONCLUSION: Mild infiltrate in the right lung base. Mild nonspecific distention small bowel. Charlie Aly MD Narrative Course I, Dr. maldonado, have reviewed the advance practice practitioner's documentation and am in agreement, met with the patient face to face, made the diagnosis, and the medical decision making was done by me. *My assessment and Findings: 40-year-old female presents with feeling like she is in alcohol withdrawal and had a recent fall out of bed where she noted some back pain. She denies other complaints but is worried that she needs help with her detox. Workup revealed elevated white blood cell count and given this and her tachycardia sepsis workup was added on. Lactate was elevated, source unable to be found so CT abdomen added on and given broad-spectrum antibiotics and she will be admitted to the hospital for further care Sepsis Criteria SIRS Criteria (2 or more): Heart rate over 90, WBC > 18232, < 4000 or > 10% bands Sepsis Criteria (SIRS+source): Infect source susp/known Severe Sepsis (+one): Lactate >2 Criteria Outcome: Meets severe sepsis criteria Diagnosis Primary Impression: Severe sepsis Additional Impression: Pneumonia Qualified Code: J18.9 - Pneumonia due to infectious organism, unspecified laterality, unspecified part of lung Admitting Information Admitting Physician Requests: Admit Sandra Maldonado MD May 21, 2016 14:56
[2016-05-21] MEDS ORDERED: IOHEXOL 350 MG/ML 10 ML VIAL (for RAD DIAG) IV ONE (14:57)
[2016-05-21] MEDS ORDERED: LORazepam 1 MG TAB PO PRN (15:15)
[2016-05-21] MEDS ORDERED: LORazepam 2 MG/ML VIAL IV PUSH PRN ×3 (15:15)
[2016-05-21] MEDS ORDERED: LORazepam 2 MG TAB PO PRN (15:15)
[2016-05-21] MEDS ORDERED: FLUMAZENIL 0.5 MG/5 ML VIAL IV PUSH PRN (15:15)
[2016-05-21 15:21] LABS: LACTIC ACID GHOST NOT REPORTABLE
--- NOTE | 2016-05-21 15:23 | RADRPT ---
EXAM DATE/TIME: 05/21/2016 14:53 [facility] COMPARISON: No previous studies available for comparison. INDICATIONS : Vomiting with intermittent right sided abdominal pain for 2 weeks. IV CONTRAST: 97 cc Omnipaque 350 (iohexol) IV ORAL CONTRAST: No oral contrast ingested. RADIATION DOSE: 4.51 CTDIvol (mGy) MEDICAL HISTORY : Ulcers. Hernia, hiatal. Pancreatitis.Cirrhosis. SURGICAL HISTORY : None. ENCOUNTER: Initial ACUITY: 2 weeks PAIN SCALE: 6/10 LOCATION: Right Abdomen/pelvis TECHNIQUE: Volumetric scanning of the abdomen and pelvis was performed. Using automated exposure control and ad justment of the mA and/or kV according to patient size, radiation dose was kept as low as reasonably achievable to obtain optimal diagnostic quality images. FINDINGS: LOWER LUNGS: There is patchy infiltrate in the right lung base. LIVER: Homogeneous density without lesion. There is no dilation of the biliary tree. No calcified [place] es. SPLEEN: Normal size without lesion. PANCREAS: Within normal limits. KIDNEYS: Normal in size and shape. There is no mass, stone or hydronephrosis. ADRENAL GLANDS: Within normal limits. VASCULAR: There is no aortic aneurysm. BOWEL/MESENTERY: There is mild nonspecific fluid distention of occasional small bowel loops. The colon is decompressed . There are no inflammatory changes. No free fluid. ABDOMINAL WALL: Within normal limits. RETROPERITONEUM: There is no lymphadenopathy. BLADDER: No wall thickening or mass. REPRODUCTIVE: Intrauterine device in place. No evidence of pelvic mass or free fluid. INGUINAL: There is no lymphadenopathy or hernia. MUSCULOSKELETAL: Within normal limits for patient age. CONCLUSION: Mild infiltrate in the right lung base. Mild nonspecific distention small bowel. Charlie Aly MD on May 21, 2016 at 15:13 Board Certified Radiologist. This report was verified electronically.
--- NOTE | 2016-05-21 16:11 | HHI.HP ---
[facility] Shayne John M.D. Admission Diagnosis sepsis Diagnoses: Chief Complaint: Generalized weakness poor by mouth appetite withdrawal from alcohol Travel History International Travel<30 Days: No Contact w/Intl Traveler <30 Da: No Traveled to Known Affected Are: No Sepsis Criteria SIRS Criteria (2 or more): Heart rate over 90, RR > 20 or PaCO2 < 32 Criteria Outcome: Meets SIRS criteria History of Present Illness Patient is a 40-year-old female with known history of chronic alcohol use going through detox. Patient was brought in by father for detox. Her last drink was 6 AM this morning admits to drinking alcohol 1 pint of vodka daily. They were working on getting her to a rehabilitation program in [place]. However since this morning is been having poor by mouth appetite increasing tremors generalized weakness and admitted protein here and admitted for further evaluation. Heart rate is 100s tachycardic. Admitted for further evaluation and management Review of Systems Constitutional: DENIES: Diaphoretic episodes, Fatigue, Fever, Weight gain, Weight loss, Chills, Dizziness, Change in appetite, Night Sweats Endocrine: DENIES: Abnorml menstrual pattern, Heat/cold intolerance, Polydipsia , Polyuria, Polyphagia Eyes: DENIES: Blurred vision, Diplopia, Eye inflammation, Eye pain, Vision loss , Photosensitivity, Double Vision Ears, nose, mouth, throat: DENIES: Tinnitus, Hearing loss, Vertigo, Nasal discharge, Oral lesions, Throat pain, Hoarseness, Ear Pain, Running Nose, Epistaxis, Sinus Pain, Toothache, Odynophagia Respiratory: DENIES: Apneas, Cough, Snoring, Wheezing, Hemoptysis, Sputum production, Shortness of breath Cardiovascular: DENIES: Chest pain, Palpitations, Syncope, Dyspnea on Exertion , PND, Lower Extremity Edema, Orthopnea, Claudication Gastrointestinal: DENIES: Abdominal pain, Black stools, Bloody stools, Constipation, Diarrhea, Nausea, Vomiting, Difficulty Swallowing, Anorexia Genitourinary: DENIES: Abnormal vaginal bleeding, Dysmenorrhea, Dyspareunia, Sexual dysfunction, Urinary frequency, Urinary incontinence, Urgency, Hematuria , Dysuria, Nocturia, Vaginal discharge Musculoskeletal: DENIES: Joint pain, Muscle aches, Stiffness, Joint Swelling, Back pain, Neck pain Hematologic/lymphatic: DENIES: Bruising, Lymphadenopathy Immunologic/allergic: DENIES: Eczema, Urticaria Neurologic: DENIES: Abnormal gait, Headache, Localized weakness, Paresthesias, Seizures, Speech Problems, Tremor, Poor Balance Psychiatric: DENIES: Anxiety, Confusion, Mood changes, Depression, Hallucinations, Agitation, Suicidal Ideation, Homicidal Ideation, Delusions Past Family Social History Past Medical History No history of hypertension, diabetes. History of depression= followed by Dr. Bejarano History of chronic back pain -followed by Dr. Matthew for pain management. Past Surgical History History of malignant melanoma removal -site- abdomen. 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 Alcohol cessation Physical Exam Vital Signs Vital Signs Date Time Temp Pulse Resp B/P Pulse Ox O2 Delivery O2 Flow Rate FiO2 05/21/16 13:59 102 21 138/90 98 Room Air 05/21/16 12:00 102 19 112/78 98 Room Air 05/21/16 12:00 102 19 112/78 98 Room Air 05/21/16 09:04 98.9 142 20 121/84 91 Room Air Physical Exam GENERAL: Cachectic looking in no apparent distress. Tremulous SKIN: No rashes, Cool and dry. HEAD: Atraumatic. Normocephalic. No temporal or scalp tenderness. EYES: Pupils equal round and reactive. Extraocular motions intact. No scleral icterus. No injection or drainage. ENT: Nose without bleeding, Throat without erythema, tonsillar hypertrophy or exudate. Uvula midline. Airway patent. NECK: Trachea midline. No JVD or lymphadenopathy. Supple, nontender, no meningeal signs. CARDIOVASCULAR: Tachycardic with regular rhythm without murmurs, gallops, or rubs. RESPIRATORY: Clear to auscultation. Breath sounds equal bilaterally. No wheezes , rales, or rhonchi. GASTROINTESTINAL: Abdomen soft, non-tender, nondistended. No hepato-splenomegaly , or palpable masses. No guarding. MUSCULOSKELETAL: Extremities without clubbing, cyanosis, or edema. No joint tenderness, effusion, or edema noted. No calf tenderness. Negative Homans sign bilaterally. NEUROLOGICAL: Awake and alert. Cranial nerves II through XII intact. Motor and sensory grossly within normal limits. Five out of 5 muscle strength in all muscle groups. Normal speech. Laboratory Laboratory Tests Test 05/21/16 05/21/16 05/21/16 11:50 12:00 13:10 Prothrombin Time 10.7 Prothromb Time International 1.0 Ratio Activated Partial 30.6 Thromboplast Time Sodium Level 137 Potassium Level 3.8 Chloride Level 97 Carbon Dioxide Level 29.7 Anion Gap 10 Blood Urea Nitrogen 3 Creatinine 0.90 Estimat Glomerular Filtration 69 Rate Random Glucose 101 Calcium Level 8.1 Total Bilirubin 0.3 Aspartate Amino Transf 31 (AST/SGOT) Alanine Aminotransferase 20 (ALT/SGPT) Alkaline Phosphatase 174 Total Creatine Kinase 81 Total Protein 7.4 Albumin 3.1 Lipase 91 Ethyl Alcohol Level 204 White Blood Count 26.0 Red Blood Count 3.87 Hemoglobin 11.6 Hematocrit 34.4 Mean Corpuscular Volume 88.9 Mean Corpuscular Hemoglobin 30.0 Mean Corpuscular Hemoglobin 33.7 Concent Red Cell Distribution Width 14.3 Platelet Count 285 Mean Platelet Volume 7.0 Neutrophils (%) (Auto) 91.6 Lymphocytes (%) (Auto) 5.3 Monocytes (%) (Auto) 2.1 Eosinophils (%) (Auto) 0.6 Basophils (%) (Auto) 0.4 Neutrophils # (Auto) 23.8 Lymphocytes # (Auto) 1.4 Monocytes # (Auto) 0.5 Eosinophils # (Auto) 0.1 Basophils # (Auto) 0.1 CBC Comment DIFF FINAL Differential Comment Urine Color LIGHT-YELLOW Urine Turbidity CLEAR Urine pH 7.5 Urine Specific [place] 1.003 Urine Protein NEG Urine Glucose (UA) NEG Urine Ketones NEG Urine Occult Blood NEG Urine Nitrite NEG Urine Bilirubin NEG Urine Urobilinogen LESS THAN 2.0 Urine Leukocyte Esterase NEG Urine RBC 1 Urine WBC LESS THAN 1 Urine Squamous Epithelial 2 Cells Urine Bacteria RARE Microscopic Urinalysis Comment CULT NOT INDICATED Urine Opiates Screen NEG Urine Barbiturates Screen NEG Urine Amphetamines Screen NEG Urine Benzodiazepines Screen POS Urine Cocaine Screen NEG Urine Cannabinoids Screen NEG Lactic Acid Level 2.4 Date/Time Procedure Status Source Growth 05/21/16 13:15 Aerobic Blood Culture Received Blood Peripheral Pending 05/21/16 13:15 Anaerobic Blood Culture Received Blood Peripheral Pending Result Diagram: 05/21/16 1200 05/21/16 1150 Imaging Last Impressions Chest X-Ray 05/21/16 1131 Signed Impressions: Service Date/Time: Saturday, May 21, 2016 12:21 - CONCLUSION: No acute disease. Pascual Rosales MD Lumbar Spine X-Ray 05/21/16 0000 Signed Impressions: Service Date/Time: Saturday, May 21, 2016 12:23 - CONCLUSION: No acute disease. Pascual Rosales MD Head CT 05/21/16 0000 Signed Impressions: Service Date/Time: Saturday, May 21, 2016 12:43 - CONCLUSION: No acute disease. No significant change has occurred. Tanner Harrison MD Cervical Spine CT 05/21/16 0000 Signed Impressions: Service Date/Time: Saturday, May 21, 2016 12:43 - CONCLUSION: No acute cervical spine abnormality is identified. Charlie Martell MD Abdomen/Pelvis CT 05/21/16 0000 Signed Impressions: Service Date/Time: Saturday, May 21, 2016 14:53 - CONCLUSION: Mild infiltrate in the right lung base. Mild nonspecific distention small bowel. Charlie Aly MD Assessment and Plan Assessment and Plan 40-year-old female presenting with DTs will place patient on CIWA protocol SIRS from DTS, possible pneumonia Leukocytosis possibly reactive cannot rule out infectious process. Chest x-ray is negative however CT shows a left lower infiltrate. Patient started on Rocephin We'll change to Zosyn every 6 since patient- with alcoholism - possible aspiration Chronic pain- recent fall Continue Lortab when necessary for pain and Flexeril. PT consult in a.m. History of depression currently on Prozac and trazodone Malnutrition poor nutritional status because of chronic alcohol use We'll consult our dietitian/shorer service. Consult case management to follow up on rehabilitation alcohol program in [place]. Physician Certification 2 Midnight Certification Type: Admission for Inpatient Services Order for Inpatient Services The services are ordered in accordance with Medicare regulations or non- Medicare payer requirements, as applicable. In the case of services not specified as inpatient-only, they are appropriately provided as inpatient services in accordance with the 2-midnight benchmark. Estimated LOS (days): 3 days is the estimated time the patient will need to remain in the hospital, assuming treatment plan goals are met and no additional complications. Post-Hospital Plan: Not yet determined Laurel Bowman MD May 21, 2016 16:11
[2016-05-21 16:51] VITALS: BP 138/84; PULSE 103; RESP 16; TEMP 99.3; O2SAT 98
[2016-05-21] MEDS: LORazepam 2 MG/ML VIAL IV PUSH PRN ×2 (17:00→21:21)
[2016-05-21] MEDS: NS + KCL 20 MEQ INJ 1,000 ML IV SCH (17:21)
[2016-05-21] MEDS: ENOXAPARIN SODIUM 40 MG/0.4 ML SYRINGE SQ SCH (17:22)
[2016-05-21] MEDS: ONDANSETRON HCL 4 MG/2 ML VIAL IV PUSH PRN (17:23)
[2016-05-21] MEDS ORDERED: PANTOPRAZOLE SODIUM 40 MG VIAL IV PUSH SCH (20:00)
[2016-05-21 21:05] VITALS: BP 139/84; PULSE 94; RESP 16; TEMP 99.9; O2SAT 99
[2016-05-21] MEDS: CYCLOBENZAPRINE HCL 10 MG TAB PO PRN (21:05)
[2016-05-21] MEDS: traZODone HCL 100 MG TAB PO SCH (21:05)
[2016-05-21] MEDS: SODIUM CHLORIDE 0.9% FLUSH 10 ML FLUSH IV FLUSH SCH (21:05)
[2016-05-21] MEDS: PIPERACIL-TAZO 3.375 GM PREMIX 50 ML IV SCH (22:46)
[2016-05-21] MEDS: MULTIVITAMIN INJ 10 ML, FOLIC ACID INJ 1 MG in SODIUM CHLORID 0.9% 500 ML INJ 500 ML IV SCH (22:46)
[2016-05-21] MEDS: THIAMINE INJ 100 MG in SODIUM CHLORIDE 0.9% INJ 100 ML IV SCH (22:46)
[2016-05-21 23:44] VITALS: BP 116/72; PULSE 93; RESP 18; TEMP 99.5; O2SAT 94
[2016-05-22] MEDS: PIPERACIL-TAZO 3.375 GM PREMIX 50 ML IV SCH ×4 (02:00→20:27)
[2016-05-22] MEDS: CYCLOBENZAPRINE HCL 10 MG TAB PO PRN ×3 (04:53→20:28)
[2016-05-22] MEDS: LORazepam 2 MG/ML VIAL IV PUSH PRN ×4 (04:53→16:48)
[2016-05-22] MEDS: ONDANSETRON HCL 4 MG/2 ML VIAL IV PUSH PRN ×3 (04:56→20:28)
[2016-05-22] MEDS: NS + KCL 20 MEQ INJ 1,000 ML IV SCH ×2 (04:56→10:59)
[2016-05-22 05:28] VITALS: BP 130/77; PULSE 85; RESP 18; TEMP 99.9; O2SAT 91
[2016-05-22 08:00] VITALS: BP 133/81; PULSE 83; RESP 18; TEMP 98.6; O2SAT 93
[2016-05-22] MEDS: SODIUM CHLORIDE 0.9% FLUSH 10 ML FLUSH IV FLUSH SCH ×2 (08:25→20:27)
[2016-05-22] MEDS: FLUoxetine HCL 20 MG CAP PO SCH (08:25)
[2016-05-22 11:13] LABS: AUTOMATED NEUTROPHIL # 11.2 TH/MM3 (1.8-7.7); BASOPHIL # 0.1 TH/MM3 (0-0.2); BASOPHIL % 0.8 % (0.0-2.0); EOSINOPHIL # 0.4 TH/MM3 (0-0.4); HEMATOCRIT 30.4 % (35.0-46.0); HEMO FLAGS DIFF FINAL; LYMPH % 10.6 % (9.0-44.0); LYMPHOCYTE # 1.5 TH/MM3 (1.0-4.8); MEAN CELL VOLUME 90.4 FL (80.0-100.0); MEAN CORPUSCULAR HEMOGLOBIN 29.7 PG (27.0-34.0); MEAN CORPUSCULAR HGB CONC 32.9 % (32.0-36.0); MONO % 4.4 % (0.0-8.0); NEUT % 81.2 % (16.0-70.0); PLATELET COUNT 197 TH/MM3 (150-450); RED BLOOD COUNT 3.36 MIL/MM3 (4.00-5.30); RED CELL DISTRIBUTION WIDTH 14.4 % (11.6-17.2); WHITE BLOOD COUNT 13.8 TH/MM3 (4.0-11.0)
[2016-05-22 11:39] LABS: BICARBONATE 25.8 MEQ/L (21.0-32.0); POTASSIUM 3.9 MEQ/L (3.5-5.1)
[2016-05-22 12:00] VITALS: BP 143/92; PULSE 77; RESP 18; TEMP 99.2; O2SAT 95
[2016-05-22 12:13] LABS: CALCIUM-PROTEIN CORRECTED 7.9 MG/DL (8.5-10.1)
[2016-05-22] MEDS: ENOXAPARIN SODIUM 40 MG/0.4 ML SYRINGE SQ SCH (14:25)
[2016-05-22] MEDS: MULTIVITAMIN INJ 10 ML, FOLIC ACID INJ 1 MG in SODIUM CHLORID 0.9% 500 ML INJ 500 ML IV SCH (14:25)
--- NOTE | 2016-05-22 14:27 | HHI.PR ---
Subjective Remarks awake and alert feeling better, still tremulous, appetite still poor complains of back pain ; chronic on [place] as OP Objective Vitals Vital Signs Date Time Temp Pulse Resp B/P Pulse Ox O2 Delivery O2 Flow Rate FiO2 05/22/16 12:00 99.2 77 18 143/92 95 05/22/16 08:00 98.6 83 18 133/81 93 05/22/16 05:28 99.9 85 18 130/77 91 05/21/16 23:44 99.5 93 18 116/72 94 05/21/16 21:05 99.9 94 16 139/84 99 05/21/16 16:51 99.3 103 16 138/84 98 I/O 05/21/16 05/21/16 05/21/16 05/22/16 05/22/16 05/22/16 07:00 15:00 23:00 07:00 15:00 23:00 Intake Total 179 ml 800 ml Balance 179 ml 800 ml Intake IV Total 179 ml 800 ml # Voids 1 # Bowel Movements 0 Result Diagram: 05/22/16 1035 05/22/16 1035 Imaging Last Impressions Chest X-Ray 05/21/16 1131 Signed Impressions: Service Date/Time: Saturday, May 21, 2016 12:21 - CONCLUSION: No acute disease. Pascual Rosales MD Lumbar Spine X-Ray 05/21/16 0000 Signed Impressions: Service Date/Time: Saturday, May 21, 2016 12:23 - CONCLUSION: No acute disease. Pascual Rosales MD Head CT 05/21/16 0000 Signed Impressions: Service Date/Time: Saturday, May 21, 2016 12:43 - CONCLUSION: No acute disease. No significant change has occurred. Tanner Harrison MD Cervical Spine CT 05/21/16 0000 Signed Impressions: Service Date/Time: Saturday, May 21, 2016 12:43 - CONCLUSION: No acute cervical spine abnormality is identified. Charlie Martell MD Abdomen/Pelvis CT 05/21/16 0000 Signed Impressions: Service Date/Time: Saturday, May 21, 2016 14:53 - CONCLUSION: Mild infiltrate in the right lung base. Mild nonspecific distention small bowel. Charlie Aly MD Objective Remarks awake and alert, oriented x 3 anicteric lungs decrease breath sounds, no rales regular rhythm abdomen soft, nontender extremities no edema moves all extremities- spontaneously- feels generalized weakness A/P Assessment and Plan 40-year-old female presenting with DTs will place patient on CIWA protocol SIRS from DTS, Pneumonia Leukocytosis - on Zosyn every 6 since patient- with alcoholism - cover for possible aspiration Chronic pain- recent fall Continue Lortab when necessary for pain and Flexeril. PT consult History of depression currently on Prozac and trazodone Malnutrition poor nutritional status because of chronic alcohol use We'll consult our dietitian/dry wall installations mechanic service.- Add boost Hypocalcemia- check Vit D levels Consult case management to follow up on rehabilitation alcohol program in [place]. PT consult. - deconditioning Laurel Bowman MD May 22, 2016 14:27
[2016-05-22] MEDS: THIAMINE INJ 100 MG in SODIUM CHLORIDE 0.9% INJ 100 ML IV SCH (14:30)
[2016-05-22] MEDS: traMADol/ACETAMINOPHEN 37.5/325 1 TAB PO PRN ×2 (15:36→19:23)
[2016-05-22 16:00] VITALS: BP 151/94; PULSE 71; RESP 18; TEMP 99.3; O2SAT 96
--- NOTE | 2016-05-22 16:05 | EKG ---
Date Performed: 05/21/2016 Time Performed: 11:47:01 PTAGE: 40 years EKG: Sinus rhythm NORMAL ECG PREVIOUS TRACING : 03/28/2016 21.27 Compared to previous tracing, heart rate is faster, otherwi se no significant change. DOCTOR: Eugenio Caldwell Interpretating Date/Time 05/22/2016 16:04:46
[2016-05-22 20:00] VITALS: PULSE 65
[2016-05-22] MEDS: traZODone HCL 100 MG TAB PO SCH (20:27)
[2016-05-22] MEDS: CALCIUM/VITAMIN D 250 MG/125 U TAB PO SCH (20:28)
[2016-05-22 20:38] VITALS: BP 151/72; PULSE 61; RESP 18; TEMP 98.5; O2SAT 95
[2016-05-23] VITALS (7 sets, daily range): BP systolic 131–151; BP diastolic 78–102; PULSE 58–78; RESP 16–18; TEMP 97.6–98.9; O2SAT 94–99
[2016-05-23] MEDS: PIPERACIL-TAZO 3.375 GM PREMIX 50 ML IV SCH ×4 (02:23→20:11)
[2016-05-23] MEDS: traMADol/ACETAMINOPHEN 37.5/325 1 TAB PO PRN ×5 (02:29→21:20)
[2016-05-23] MEDS: LORazepam 2 MG/ML VIAL IV PUSH PRN ×2 (04:36→10:04)
[2016-05-23] MEDS: ONDANSETRON HCL 4 MG/2 ML VIAL IV PUSH PRN ×2 (07:57→16:31)
[2016-05-23] MEDS: SODIUM CHLORIDE 0.9% FLUSH 10 ML FLUSH IV FLUSH SCH ×2 (07:58→20:13)
[2016-05-23] MEDS: CALCIUM/VITAMIN D 250 MG/125 U TAB PO SCH ×2 (07:58→20:13)
[2016-05-23] MEDS: PANTOPRAZOLE SOD 40 MG DELAYED RELEASE TAB PO SCH (07:58)
[2016-05-23] MEDS: FLUoxetine HCL 20 MG CAP PO SCH (07:58)
[2016-05-23] MEDS: NS + KCL 20 MEQ INJ 1,000 ML IV SCH (07:59)
--- NOTE | 2016-05-23 12:13 | HHI.PR ---
Subjective Remarks patient feeling much better, appetite improved has a supportive partner at bedside dry cough- no sputum has been up and ambulating more complains of constipation Objective Vitals Vital Signs Date Time Temp Pulse Resp B/P Pulse Ox O2 Delivery O2 Flow Rate FiO2 05/23/16 08:10 61 05/23/16 08:00 98.7 58 18 151/92 95 05/23/16 04:00 98.9 78 16 144/81 94 05/23/16 00:24 97.9 73 16 131/78 96 05/22/16 20:38 98.5 61 18 151/72 95 05/22/16 20:00 65 05/22/16 16:00 99.3 71 18 151/94 96 I/O 05/22/16 05/22/16 05/22/16 05/23/16 05/23/16 05/23/16 07:00 15:00 23:00 07:00 15:00 23:00 Intake Total 800 ml 600 ml 460 ml Output Total 1600 ml 1000 ml 1000 ml Balance 800 ml -1000 ml -540 ml -1000 ml Intake Oral 600 ml 460 ml IV Total 800 ml Output Urine Total 1600 ml 1000 ml 1000 ml # Voids 1 # Bowel Movements 0 0 0 0 Result Diagram: 05/22/16 1035 05/22/16 1035 Imaging Last Impressions Chest X-Ray 05/21/16 1131 Signed Impressions: Service Date/Time: Saturday, May 21, 2016 12:21 - CONCLUSION: No acute disease. Pascual Rosales MD Lumbar Spine X-Ray 05/21/16 0000 Signed Impressions: Service Date/Time: Saturday, May 21, 2016 12:23 - CONCLUSION: No acute disease. Pascual Rosales MD Head CT 05/21/16 0000 Signed Impressions: Service Date/Time: Saturday, May 21, 2016 12:43 - CONCLUSION: No acute disease. No significant change has occurred. Tanner Harrison MD Cervical Spine CT 05/21/16 0000 Signed Impressions: Service Date/Time: Saturday, May 21, 2016 12:43 - CONCLUSION: No acute cervical spine abnormality is identified. Charlie Martell MD Abdomen/Pelvis CT 05/21/16 0000 Signed Impressions: Service Date/Time: Saturday, May 21, 2016 14:53 - CONCLUSION: Mild infiltrate in the right lung base. Mild nonspecific distention small bowel. Charlie Aly MD Objective Remarks awake and alert, oriented x 3 anicteric no wheezes no rales regular rhythm abdomen soft, nontender extremities no edema moves all extremities- spontaneously- A/P Assessment and Plan 40-year-old female presenting with DTs-improved on CIWA protocvol - start on po Librium in anticipation of discharge SIRS from DTS, Pneumonia Leukocytosis - trended down- afebrile - tachycardia improved - on Zosyn every 6 since patient- with alcoholism - cover for possible aspiration - Mucinex po bid Chronic pain- recent fall Continue Lortab when necessary for pain and Flexeril. PT consult History of depression currently on Prozac and trazodone Malnutrition poor nutritional status because of chronic alcohol use- ensure tid with each tray Hypocalcemia-- start Calcium with vitamin d supplements Consult case management to follow up on rehabilitation alcohol program PT consult. - deconditioning d/w patient and partner at bedside PCP- Laurel Wall MD May 23, 2016 12:13
[2016-05-23] MEDS: chlordiazePOXIDE 25 MG CAP PO SCH ×2 (14:11→21:20)
[2016-05-23] MEDS: THIAMINE INJ 100 MG in SODIUM CHLORIDE 0.9% INJ 100 ML IV SCH (16:30)
[2016-05-23] MEDS: MULTIVITAMIN INJ 10 ML, FOLIC ACID INJ 1 MG in SODIUM CHLORID 0.9% 500 ML INJ 500 ML IV SCH (16:30)
[2016-05-23] MEDS: ENOXAPARIN SODIUM 40 MG/0.4 ML SYRINGE SQ SCH (16:31)
[2016-05-23] MEDS: CYCLOBENZAPRINE HCL 10 MG TAB PO PRN (20:12)
[2016-05-23] MEDS: traZODone HCL 100 MG TAB PO SCH (20:14)
[2016-05-24] VITALS: BP 144/90; PULSE 58; RESP 14; TEMP 98.4; O2SAT 92
[2016-05-24] MEDS: ONDANSETRON HCL 4 MG/2 ML VIAL IV PUSH PRN ×2 (01:49→09:49)
[2016-05-24] MEDS: PIPERACIL-TAZO 3.375 GM PREMIX 50 ML IV SCH ×2 (01:49→08:18)
[2016-05-24] MEDS: traMADol/ACETAMINOPHEN 37.5/325 1 TAB PO PRN ×3 (01:49→11:11)
[2016-05-24] MEDS: NS + KCL 20 MEQ INJ 1,000 ML IV SCH (01:56)
[2016-05-24 04:00] VITALS: BP 149/97; PULSE 61; RESP 16; TEMP 98.2; O2SAT 91
[2016-05-24] MEDS: chlordiazePOXIDE 25 MG CAP PO SCH (06:23)
[2016-05-24 07:54] VITALS: PULSE 56
[2016-05-24 08:00] VITALS: BP 148/99; PULSE 54; RESP 18; TEMP 98.5; O2SAT 93
[2016-05-24] MEDS: PANTOPRAZOLE SOD 40 MG DELAYED RELEASE TAB PO SCH (08:18)
[2016-05-24] MEDS: CALCIUM/VITAMIN D 250 MG/125 U TAB PO SCH (08:18)
[2016-05-24] MEDS: FLUoxetine HCL 20 MG CAP PO SCH (08:18)
[2016-05-24] MEDS: SODIUM CHLORIDE 0.9% FLUSH 10 ML FLUSH IV FLUSH SCH (08:23)
[2016-05-24] MEDS ORDERED: THIAMINE HCL 100 MG TAB PO SCH (09:00)
--- NOTE | 2016-05-24 10:16 | HHI.PR ---
Subjective Remarks feels tired, afebrile, appears depressed but very motivated with rehab denies any suicidal ideations ate po 100%, no pain complaints cough - occasional 02 sats good at room air Objective Vitals Vital Signs Date Time Temp Pulse Resp B/P Pulse Ox O2 Delivery O2 Flow Rate FiO2 05/24/16 08:00 98.5 54 18 148/99 93 05/24/16 04:00 98.2 61 16 149/97 91 05/24/16 00:00 98.4 58 14 144/90 92 05/23/16 20:00 98.5 64 16 144/102 96 05/23/16 16:00 97.6 66 18 135/95 99 05/23/16 12:00 98.2 62 18 148/101 96 I/O 05/23/16 05/23/16 05/23/16 05/24/16 05/24/16 05/24/16 07:00 15:00 23:00 07:00 15:00 23:00 Intake Total 480 ml 480 ml 240 ml Output Total 1000 ml 825 ml Balance -1000 ml 480 ml 480 ml -585 ml Intake Oral 480 ml 480 ml 240 ml Output Urine Total 1000 ml 825 ml # Voids 3 0 # Bowel Movements 0 0 0 0 Result Diagram: 05/22/16 1035 05/22/16 1035 Imaging Last Impressions Chest X-Ray 05/21/16 1131 Signed Impressions: Service Date/Time: Saturday, May 21, 2016 12:21 - CONCLUSION: No acute disease. Pascual Rosales MD Lumbar Spine X-Ray 05/21/16 0000 Signed Impressions: Service Date/Time: Saturday, May 21, 2016 12:23 - CONCLUSION: No acute disease. Pascual Rosales MD Head CT 05/21/16 0000 Signed Impressions: Service Date/Time: Saturday, May 21, 2016 12:43 - CONCLUSION: No acute disease. No significant change has occurred. Tanner Harrison MD Cervical Spine CT 05/21/16 0000 Signed Impressions: Service Date/Time: Saturday, May 21, 2016 12:43 - CONCLUSION: No acute cervical spine abnormality is identified. Charlie Martell MD Abdomen/Pelvis CT 05/21/16 0000 Signed Impressions: Service Date/Time: Saturday, May 21, 2016 14:53 - CONCLUSION: Mild infiltrate in the right lung base. Mild nonspecific distention small bowel. Charlie Aly MD Objective Remarks awake and alert, oriented x 3, appears depressed anicteric no wheezes no rales regular rhythm abdomen soft, nontender extremities no edema moves all extremities- spontaneously- gait steady- no ataxia A/P Assessment and Plan 40-year-old female presenting with DTs-improved on CIWA protocvol - continue on Librium 50 mg po q8 SIRS from DTS, Pneumonia Leukocytosis - trended down- afebrile Suspect Pneumonia- possible aspiration - tachycardia improved - on Zosyn every 6- - change to Augmentin on DC 875 mg po bid x 7 days - Mucinex po bid- Chronic pain- recent fall Continue Lortab when necessary for pain and Flexeril. PT consult History of depression currently on Prozac and trazodone Malnutrition poor nutritional status because of chronic alcohol use- ensure tid with each tray Hypocalcemia--Calcium with vitamin d supplements Elevated BP-Hypertension- HR regular 70 patient appears depressed and anxious at the same time with DT component- continue Librium rechecked now - 145/86. conitnue to monitor monitor and consider start meds - Consult case management to follow up on rehabilitation alcohol program - father working on Rehab program in [place] S/P PT eval- no PT recommended. encourage patient to increase activity Diet regular- tolerated well Activity as tolerated. Deconditioning due to alcoholism- patient encouraged Advise to abstain from alcohol- very motivated- family working on rehab facility - in [place] PCP- Dr. Shayne John Meds- thiamine daily Ultracet 1 tab po q 6 prn for pain Augmentin 875 mf po bid x 7 days Librium 50 mg po q 8 x 5 days Mucinex 600 mg po bid d/w patient and expressed understanding encourage and given motivation states good family support 200 pm seen with father in the room- CM and charge nurse patient up and ambulating around the room, gait steady all the while discussing case no cough, no vomiting noted I reviewed patient previous admissions and visits to our ER re- alcohol related admissions discuss with her and father- jail effects of alcohol needs jail alcohol rehab program - Laurel Bowman MD May 24, 2016 10:16
[2016-05-24 10:47] VITALS: BP 141/86; PULSE 63; RESP 18; TEMP 97.9; O2SAT 93
[2016-05-24] MEDS ORDERED: VITA100T2 PO (10:56)
[2016-05-24] MEDS ORDERED: CHLO25CA2 PO (10:56)
[2016-05-24] MEDS ORDERED: PANT40TA3 PO (10:56)
[2016-05-24] MEDS ORDERED: TRAM-388 PO (10:58)
[2016-05-24] MEDS ORDERED: AUGM875T PO (10:59)
[2016-05-24] MEDS ORDERED: guaiFENesin E.R. 600 MG TAB PO SCH (11:00)
[2016-05-24] MEDS ORDERED: cloNIDine HCL 0.1 MG TAB PO PRN (11:00)
[2016-05-24] MEDS ORDERED: ZOFR4TAB PO (11:08)
[2016-05-24] MEDS ORDERED: MUCI600T PO (11:09)
[2016-05-24 12:00] VITALS: BP 141/86; PULSE 63; RESP 18; TEMP 97.9; O2SAT 93
--- NOTE | 2016-06-22 15:16 | HHI.DS ---
Discharge Summary Admission Date May 21, 2016 at 14:33 Discharge Date: May 24, 2016 Admitting Diagnosis sepsis (1) Sepsis ICD Code: A41.9 Diagnosis: Principal (2) Alcohol abuse ICD Code: F10.10 Diagnosis: Principal Procedures none Brief History - From Admission Patient is a 40-year-old female with known history of chronic alcohol use going through detox. Patient was brought in by father for detox. Her last drink was 6 AM this morning admits to drinking alcohol 1 pint of vodka daily. They were working on getting her to a rehabilitation program in [place]. However since this morning is been having poor by mouth appetite increasing tremors generalized weakness and admitted protein here and admitted for further evaluation. Heart rate is 100s tachycardic. Admitted for further evaluation and management Imaging Last Impressions Chest X-Ray 05/21/16 1131 Signed Impressions: Service Date/Time: Saturday, May 21, 2016 12:21 - CONCLUSION: No acute disease. Pascual Rosales MD Lumbar Spine X-Ray 05/21/16 0000 Signed Impressions: Service Date/Time: Saturday, May 21, 2016 12:23 - CONCLUSION: No acute disease. Pascual Rosales MD Head CT 05/21/16 0000 Signed Impressions: Service Date/Time: Saturday, May 21, 2016 12:43 - CONCLUSION: No acute disease. No significant change has occurred. Tanner Harrison MD Cervical Spine CT 05/21/16 0000 Signed Impressions: Service Date/Time: Saturday, May 21, 2016 12:43 - CONCLUSION: No acute cervical spine abnormality is identified. Charlie Martell MD Abdomen/Pelvis CT 05/21/16 0000 Signed Impressions: Service Date/Time: Saturday, May 21, 2016 14:53 - CONCLUSION: Mild infiltrate in the right lung base. Mild nonspecific distention small bowel. Charlie Aly MD PE at Discharge awake and alert, oriented x 3, appears depressed anicteric no wheezes no rales regular rhythm abdomen soft, nontender extremities no edema moves all extremities- spontaneously- gait steady- no ataxia Hospital Course 40-year-old female presenting with DTs-improved on CIWA protocvol - continue on Librium 50 mg po q8 SIRS from DTS, Pneumonia Leukocytosis - trended down- afebrile Suspect Pneumonia- possible aspiration - tachycardia improved - on Zosyn every 6- - change to Augmentin on DC 875 mg po bid x 7 days - Mucinex po bid- Chronic pain- recent fall Continue Lortab when necessary for pain and Flexeril. PT consult History of depression currently on Prozac and trazodone Malnutrition poor nutritional status because of chronic alcohol use- ensure tid with each tray Hypocalcemia--Calcium with vitamin d supplements Elevated BP-Hypertension- HR regular 70 patient appears depressed and anxious at the same time with DT component- continue Librium rechecked now - 145/86. conitnue to monitor monitor and consider start meds - Consult case management to follow up on rehabilitation alcohol program - father working on Rehab program in [place] S/P PT eval- no PT recommended. encourage patient to increase activity Diet regular- tolerated well Activity as tolerated. Deconditioning due to alcoholism- patient encouraged Advise to abstain from alcohol- very motivated- family working on rehab facility - in [place] PCP- Dr. 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 home alcohol rehab program - Pt Condition on Discharge: Stable Discharge Disposition: Discharge Home Discharge Time: > 30 minutes Discharge Instructions DIET: Follow Instructions for: As Tolerated, No Restrictions Additional Diet Instructions: supplement- boost or Ensure Activities you can perform: Weight Bearing as Ligia Follow up Referrals: PCP Follow-up - 05/27/16 with [facility] New Medications: Pantoprazole (Pantoprazole) 40 Mg Tab 40 MG PO DAILY GIpro #30 Ref 0 TAB Continued Medications: Fluoxetine (Prozac) 20 Mg Cap 60 MG PO DAILY #30 Ref 0 CAP Trazodone (Trazodone) 100 Mg Tab 200 MG PO HS Control Depression #30 Ref 0 TAB Laurel Bowman MD June 22, 2016 15:16
== END 2016-05-24 14:11 | disposition home or self-care (01) | DRG 871 ==
LOC: NEPC 09:02 → NEDA 14:33 → N04A 18:47
PROVIDERS: ADMIT Internal Medicine; ATTEND Internal Medicine
DX: A41.9 Sepsis, unspecified organism (principal); J69.0 Pneumonitis due to inhalation of food and vomit; F10.231 Alcohol dependence with withdrawal delirium; E46 Unspecified protein-calorie malnutrition; Z68.1 Body mass index [BMI] 19.9 or less, adult; R65.20 Severe sepsis without septic shock; E83.51 Hypocalcemia; F32.9 Major depressive disorder, single episode, unspecified; G89.29 Other chronic pain; K59.00 Constipation, unspecified; Z87.891 Personal history of nicotine dependence
CPT/HCPCS: 70450; 71010; 72100; 72125; 74177; 76937; 80048; 80053; 80307; 81001; 82306; 82550; 82652; 82948; 83605; 83690; 84155; 85025; 85610; 85730; 87040; 93005; 96374; 96375; 96376; C9113; J1650; J1885; J2060; J2405; J2543; J3370; J3411; J3480; J7030; J7040; J7050; L0150; Q9967

== ENCOUNTER 2016-06-20 22:21 | Observation (INO) | payer OTHER ==
[~2016-06-20] VITALS: Ht 165.1 cm; Wt 45.0 kg
[~2016-06-20 22:21] MED LIST changes: +AUGM875T PO; -CLON1 PO; +MUCI600T PO; +PANT40TA3 PO; +TRAM-388 PO; +TRAZ100T4 PO; -TRAZ50TA12 PO; -VENTAER INH; +VITA100T2 PO; +ZOFR4TAB PO; -ZOFR4TAB3 SL
[2016-06-20 22:23] VITALS: BP 128/92; PULSE 82; RESP 16; TEMP 97.5; O2SAT 97
[2016-06-20] MEDS ORDERED: ONDANSETRON HCL 4 MG/2 ML VIAL IV ONE (22:45)
[2016-06-20] MEDS ORDERED: SODIUM CHLOR 0.9% 1000 ML INJ 1,000 ML IV ONE (22:45)
--- NOTE | 2016-06-20 23:14 | PD ---
HPI Chief Complaint: Alcohol/Drug Intoxication Time Seen by Provider: 22:40 Travel History International Travel<30 days: No Contact w/Intl Traveler<30days: No Traveled to known affect area: No History of Present Illness HPI The patient is a 40 year old female who presents to the [facility] emergency department with a history of a long-standing history of alcohol abuse for at least the last 20 years who reportedly recently relapsed. The patient reports that she also has a history of depression, bulimia, and anorexia. She reports that all of those symptoms have also been worse. She reports that over the last 2 weeks she has gone from 92 pounds down to 86 pounds. She reports that she has had nausea and vomiting 3-4 times today, and diarrhea twice today. She reports that she normally first with constipation related to gastroparesis and has to use MiraLAX for that. The patient reports that recently she was drinking a half of a pint of vodka per day, however today she drank a full pint of vodka. The patient reports that the last time she was in rehabilitation was approximately a year ago. She reports that she has been at [facility] in the past, however she reports that she does not like that facility. The patient was last admitted for psychiatric reasons including depression and an intentional medication overdose in March of this year. The patient reports that she has been experiencing suicidal ideations again. A review of systems, the patient denies any recent fevers, cough, congestion, neck pain, chest pain, shortness of breath, urinary symptoms, or neurologic symptoms. [facility] Past Medical History Narrative Medical The patient's past medical history is significant for alcohol abuse, depression , gastroparesis, chronic back pain, anorexia, bulimia, history of malignant melanoma status post resection from a site on the abdomen. Hx Anticoagulant Therapy: No Anemia: Yes Arthritis: Yes Asthma: No Autoimmune Disease: No Blood Disorders: No Bipolar Disorder: Yes Anxiety: Yes Depression: Yes Heart Rhythm Problems: No Cancer: Yes ( melanoma abdomen) Cardiovascular Problems: No High Cholesterol: No Chemotherapy: No Chest Pain: No Congestive Heart Failure: No Cirrhosis: Yes (DX WITH FATTY LIVER 10-15 YEARS AGO) COPD: No Cerebrovascular Accident: No Developmental Delay: No Diabetes: No Diminished Hearing: No Endocrine: No Gastrointestinal Disorders: Yes (DELAYED GASTRIC EMPTYING, ) GERD: Yes Genitourinary: No Hiatal Hernia: Yes Hypertension: No Immune Disorder: No Implanted Vascular Access Dvce: No Insomnia: Yes Kidney Stones: No Musculoskeletal: Yes (hurt back 1 month ago) Neurologic: Yes Psychiatric: Yes Reproductive: No Respiratory: Yes (pneumonia in dec) Integumentary: Yes (07/2010- MRSA TO BILATERAL ARMS) Immunizations Current: Yes Migraines: Yes Myocardial Infarction: No Pancreatitis: Yes Radiation Therapy: No Renal Failure: No Seizures: Yes (last night questionable ) Sleep Apnea: No Thyroid Disease: No Ulcer: Yes ?: Not : 3 Para: 1 Miscarriage: 1 : 1 Past Surgical History Narrative Surgical The patient's past surgical history is significant for malignant melanoma resection off of the abdomen, eye surgery as a child related to strabismus. Abdominal Surgery: No AICD: No Arteriovenous Shunt: No Cardiac Surgery: No Ear Surgery: No Endocrine Surgery: No Eye Surgery: Yes (PT STATES SHE HAD EYE SURGERY FOR "[employer]" WHEN SHE WAS 3 YEARS OLD.) Genitourinary Surgery: No Gynecologic Surgery: No Hysterectomy: No Insulin Pump: No Joint Replacement: No Neurologic Surgery: No Oral Surgery: No Pacemaker: No Thoracic Surgery: No Social History Alcohol Use: Yes (CHRONIC ALCOHOLIC) Tobacco Use: No Substance Use: No Allergies-Medications (Allergen,Severity, Reaction): Coded Allergies: Lennon (Verified Allergy, Severe, Seizures, 06/20/16) Morphine (Verified Adverse Reaction, Severe, Hives, 06/20/16) *MDRO Multi-Drug Resistant Organism (Verified Adverse Reaction, Unknown, Cleared 01/12/16, 06/20/16) MRSA (skin) - 07/2010 MRSA PCR Screens NEGATIVE - 12/10/15 & 01/12/16 Cleared per Infection Control Reported Meds & Prescriptions Reported Meds & Active Scripts Active Zofran (Ondansetron HCl) 4 Mg Tab 4 Mg PO Q8HR PRN Pantoprazole (Pantoprazole Sodium) 40 Mg Tab 40 Mg PO DAILY Vitamin B-1 (Thiamine HCl) 100 Mg Tab 100 Mg PO DAILY 10 Days Reported Stiolto Respimat Inh (Tiotropium-Olodaterol Inh) 2.5-2.5 Mcg/Act Aero 2 Puff INH DAILY Miralax Powder (Polyethylene Glycol 3350 Powder) 17 Gm Powd 17 Gm PO BID Mix and dissolve one measuring cap-ful (17 grams) in water or juice. Rangely (Hydrocodone-Acetaminophen) 7.5-325 mg Tab 1 Tab PO Q8HR PRN Duoneb (Ipratropium-Albuterol Neb) 0.5-2.5 Mg/3 Ml Neb 1 Nebule INH PRN Gabapentin 100 Mg Cap 100 Mg PO TID Risperdal (Risperidone) 0.5 Mg Tab 0.5 Mg PO DAILY Trazodone (Trazodone HCl) 100 Mg Tab 200 Mg PO HS Prozac (Fluoxetine HCl) 20 Mg Cap 60 Mg PO DAILY Review of Systems Except as stated in HPI: all other systems reviewed are Neg General / Constitutional: Positive: Weight Loss, No: Fever Eyes: No: Visual changes HENT: No: Headaches Cardiovascular: No: Chest Pain or Discomfort Respiratory: No: Shortness of Breath Gastrointestinal: Positive: Nausea, Vomiting, Diarrhea, Abdominal Pain, Changes in Bowel Habits, Indigestion, Loss of Appetite, No: Hematemesis, Hematochezia, Constipation Genitourinary: No: Dysuria Musculoskeletal: No: Pain Skin: No Rash Neurologic: Positive: Weakness (generalized weakness), No: Focal Abnormalities , Change in Mentation, Slurred Speech, Sensory Disturbance Psychiatric: Positive: Depression, Suicidal Ideations, Mood Disorder, Substance Abuse Endocrine: No: Polydipsia Hematologic/Lymphatic: No: Easy Bruising Physical Exam Narrative General: The patient is a well-developed thin appearing female in no acute distress. Head and Neck exam: Head is normocephalic atraumatic. Eyes: EOMI, pupils are equal round and reactive to light. Nose: Midline septum with pink mucous membranes Mouth: Dentition unremarkable. Moist mucus membranes. Posterior oropharynx is not erythematous. No tonsillar hypertrophy. Uvula midline. Airway patent. Neck: No palpable lymphadenopathy. No nuchal rigidity. No thyromegaly. Cardiovascular: Regular rate and rhythm without murmurs, gallops, or rubs. Lungs: Clear to auscultation bilaterally. No wheezes, rhonchi, or rales. Abdomen: Soft, without tenderness to palpation in all 4 quadrants of the abdomen. No guarding, rebound, or rigidity. Normal bowel sounds are audible. No tenderness on palpation of McBurney's point. Extremities: No clubbing, cyanosis, or edema. 2+ pulses in all 4 extremities. Back: No costovertebral angle tenderness to palpation. Neurologic Exam: Grossly nonfocal. No tremulousness noted on examination at this time. Skin Exam: No rash noted. Intact skin that is warm and dry. Data Data Last Documented VS Vital Signs Date Time Temp Pulse Resp B/P Pulse Ox O2 Delivery O2 Flow Rate FiO2 06/21/16 00:57 87 16 93/59 96 Room Air 06/20/16 22:23 97.5 Orders Complete Blood Count With Diff (06/20/16 22:41) Comprehensive Metabolic Panel (06/20/16 22:41) Lipase (06/20/16 22:41) Magnesium (Mg) (06/20/16 22:41) Thyroid Stimulating Hormone (06/20/16 22:41) Iv Access Insert/Monitor (06/20/16 22:41) Ecg Monitoring (06/20/16 22:41) Oximetry (06/20/16 22:41) Ondansetron Inj (Zofran Inj) (06/20/16 22:45) Sodium Chlor 0.9% 1000 Ml Inj (Ns 1000 M (06/20/16 22:45) Psych Screen (06/20/16 22:57) Drug Screen, Random Urine (06/20/16 22:57) Alcohol (Ethanol) (06/20/16 22:57) Salicylates (Aspirin) (06/20/16 22:57) Tylenol (Acetaminophen) (06/20/16 22:57) Potassium Chloride Eff (K-Lyte Cl Eff) (06/21/16 00:30) Ns + Kcl 20 Meq Inj (Ns + Kcl 20 Meq Inj (06/21/16 00:30) Sodium Chlor 0.9% 1000 Ml Inj (Ns 1000 M (06/21/16 00:45) Admit Order (Ed Use Only) (06/21/16 01:05) Consult Psychiatry (06/21/16 ) Labs Laboratory Tests Test 06/20/16 06/20/16 06/20/16 22:41 23:15 23:50 Sodium Level 130 MEQ/L Potassium Level 2.8 MEQ/L Chloride Level 90 MEQ/L Carbon Dioxide Level 28.4 MEQ/L Anion Gap 12 MEQ/L Blood Urea Nitrogen 6 MG/DL Creatinine 0.85 MG/DL Estimat Glomerular Filtration 73 ML/MIN Rate Random Glucose 94 MG/DL Calcium Level 8.9 MG/DL Magnesium Level 2.0 MG/DL Total Bilirubin 0.5 MG/DL Aspartate Amino Transf 116 U/L (AST/SGOT) Alanine Aminotransferase 58 U/L (ALT/SGPT) Alkaline Phosphatase 96 U/L Total Protein 8.1 GM/DL Albumin 4.0 GM/DL Lipase 204 U/L Thyroid Stimulating Hormone 3.240 uIU/ML 3rd Gen White Blood Count 9.7 TH/MM3 Red Blood Count 4.61 MIL/MM3 Hemoglobin 13.5 GM/DL Hematocrit 39.5 % Mean Corpuscular Volume 85.8 FL Mean Corpuscular Hemoglobin 29.2 PG Mean Corpuscular Hemoglobin 34.1 % Concent Red Cell Distribution Width 15.1 % Platelet Count 318 TH/MM3 Mean Platelet Volume 6.9 FL Neutrophils (%) (Auto) 59.1 % Lymphocytes (%) (Auto) 30.6 % Monocytes (%) (Auto) 5.7 % Eosinophils (%) (Auto) 3.9 % Basophils (%) (Auto) 0.7 % Neutrophils # (Auto) 5.7 TH/MM3 Lymphocytes # (Auto) 3.0 TH/MM3 Monocytes # (Auto) 0.5 TH/MM3 Eosinophils # (Auto) 0.4 TH/MM3 Basophils # (Auto) 0.1 TH/MM3 CBC Comment DIFF FINAL Differential Comment Salicylates Level LESS THAN 1.7 MG/DL Acetaminophen Level LESS THAN 2.0 MCG/ML Ethyl Alcohol Level 257 MG/DL Urine Opiates Screen NEG Urine Barbiturates Screen NEG Urine Amphetamines Screen NEG Urine Benzodiazepines Screen POS Urine Cocaine Screen NEG Urine Cannabinoids Screen NEG MDM Medical Decision Making Medical Screen Exam Complete: Yes Emergency Medical Condition: Yes Medical Record Reviewed: Yes Differential Diagnosis Depression with suicidal ideations, versus substance induced mood disorder, versus dehydration, versus electrolyte derangement Narrative Course During the course of the patients emergency department visit, the patients history, examination, and differential diagnosis were reviewed with the patient. The patient had IV access obtained and blood work sent for analysis. The patient was placed on a rugby league footballer with oximetry and blood pressure monitoring. A psychiatric screen was ordered due to the patient's reports of depression with suicidal ideations. The patient was initially provided normal saline 1 L IV fluid bolus, Zofran 4 mg IV for nausea. While being observed, the patient was noted to become hypotensive with a blood pressure of 79/49. The patient remained with a normal heart rate in the 70s. The hypotension could be related to the patient being dehydrated. The patient was given a second liter of normal saline IV fluids. The patients laboratory studies were reviewed and remarkable for a potassium that was 2.8. The patient was started on maintenance fluids with potassium and also given K-Lyte 50 mEq by mouth 1. CMP is remarkable for a BUN of 6, AST 116 , ALT 58, TSH 3.24, lipase 204, urine drug screen is positive for benzodiazepine 's, salicylate less than 1.7, acetaminophen less than 2, alcohol level CCLVII. Given the patient's episode of hypotension and hypokalemia the patient will be admitted to the medical service and a psychiatric consultation will be placed while the patient is in the hospital. The patients results were discussed with the patient, including the plan of care. I explained that further testing and/ or monitoring is indicated based on the patients history, examination, and/ or laboratory findings. Therefore, I recommended admission for additional evaluation. The patient expressed understanding and was agreeable with this plan. The patient was admitted to the hospital in stable condition and [facility] Physician Communication Physician Communication The patient's case was discussed with Dr. Vitale who did agree to admit the patient for further evaluation and treatment at this time. Diagnosis Primary Impression: Dehydration Additional Impressions: Hypokalemia Alcohol abuse with intoxication Depression with suicidal ideation Admitting Information Admitting Physician Requests: Admit Nohemy Melton MD June 20, 2016 23:14
[2016-06-20 23:26] LABS: AUTOMATED NEUTROPHIL # 5.7 TH/MM3 (1.8-7.7); BASOPHIL # 0.1 TH/MM3 (0-0.2); BASOPHIL % 0.7 % (0.0-2.0); EOSINOPHIL # 0.4 TH/MM3 (0-0.4); EOSINOPHIL % 3.9 % (0.0-4.0); HEMATOCRIT 39.5 % (35.0-46.0); HEMO FLAGS DIFF FINAL; LYMPH % 30.6 % (9.0-44.0); MEAN CELL VOLUME 85.8 FL (80.0-100.0); MEAN CORPUSCULAR HEMOGLOBIN 29.2 PG (27.0-34.0); MEAN CORPUSCULAR HGB CONC 34.1 % (32.0-36.0); MONO % 5.7 % (0.0-8.0); NEUT % 59.1 % (16.0-70.0); PLATELET COUNT 318 TH/MM3 (150-450); RED BLOOD COUNT 4.61 MIL/MM3 (4.00-5.30); RED CELL DISTRIBUTION WIDTH 15.1 % (11.6-17.2); WHITE BLOOD COUNT 9.7 TH/MM3 (4.0-11.0)
[2016-06-20 23:37] LABS: ACETAMINOPHEN LESS THAN 2.0 MCG/ML (10.0-30.0)
[2016-06-20] MEDS ORDERED: MIRA33504 PO (23:39)
[2016-06-20] MEDS ORDERED: GABA100C4 PO (23:39)
[2016-06-20] MEDS ORDERED: IPRASOL INH (23:39)
[2016-06-20] MEDS ORDERED: RISP0.5T20 PO (23:39)
[2016-06-20] MEDS ORDERED: HYDR-3288 PO (23:39)
[2016-06-20] MEDS ORDERED: TIOT1AER INH (23:39)
[2016-06-21] VITALS (17 sets, daily range): BP systolic 79–121; BP diastolic 48–88; PULSE 77–92; RESP 14–20; TEMP 98–98.3; O2SAT 93–96
[2016-06-21 00:04] LABS: AMPHETAMINE, URINE NEG (NEG); BARBITURATES, URINE NEG (NEG); COCAINE, URINE NEG (NEG)
[2016-06-21 00:21] LABS: ALKALINE PHOSPHATASE 96 U/L (45-117); ALT (GPT) 58 U/L (10-53); ANION GAP 12 MEQ/L (5-15); AST (GOT) 116 U/L (15-37); BICARBONATE 28.4 MEQ/L (21.0-32.0); BLOOD UREA NITROGEN 6 MG/DL (7-18); CHLORIDE 90 MEQ/L (98-107); GLOMERULAR FILTRATION RATE 73 ML/MIN (>89); SODIUM (NA) 130 MEQ/L (136-145); TOTAL BILIRUBIN ADULT 0.5 MG/DL (0.2-1.0)
[2016-06-21 00:22] LABS: POTASSIUM 2.8 MEQ/L (3.5-5.1)
[2016-06-21] MEDS ORDERED: POTASSIUM CHLORIDE 25 MEQ EFFERVESCENT TAB PO ONE (00:30)
[2016-06-21] MEDS ORDERED: NS + KCL 20 MEQ INJ 1,000 ML IV SCH (00:30)
[2016-06-21] MEDS ORDERED: SODIUM CHLOR 0.9% 1000 ML INJ 1,000 ML IV ONE (00:45)
[2016-06-21] MEDS ORDERED: SODIUM CHLOR 0.9% 1000 ML INJ 1,000 ML IV SCH (01:06)
[2016-06-21] MEDS ORDERED: SODIUM CHLORIDE 0.9% FLUSH 10 ML FLUSH IV FLUSH PRN (01:15)
[2016-06-21] MEDS ORDERED: ONDANSETRON HCL 4 MG/2 ML VIAL IVP PRN (01:15)
[2016-06-21] MEDS ORDERED: BISACODYL 10 MG SUPP RECTAL PRN (01:15)
[2016-06-21] MEDS ORDERED: ACETAMINOPHEN 325 MG TAB PO PRN (01:15)
[2016-06-21] MEDS ORDERED: LORazepam 1 MG TAB PO PRN (01:30)
[2016-06-21] MEDS ORDERED: FLUMAZENIL 0.5 MG/5 ML VIAL IV PUSH PRN (01:30)
[2016-06-21] MEDS ORDERED: LORazepam 2 MG/ML VIAL IV PUSH PRN ×4 (01:30)
[2016-06-21] MEDS ORDERED: LORazepam 2 MG TAB PO PRN (01:30)
[2016-06-21] MEDS ORDERED: HALOPERIDOL LACTATE 5 MG/ML AMP IM PRN (01:30)
--- NOTE | 2016-06-21 01:51 | HHI.HP ---
HPI [facility] Primary Care Physician Shayne John M.D. Admission Diagnosis dehydration, hypokalemia, depression with suicidal ideations Diagnoses: (1) Suicidal ideation Diagnosis: Principal (2) Depression Diagnosis: Principal (3) Alcohol abuse Diagnosis: Principal (4) Hypotension Diagnosis: Principal (5) Hypokalemia Diagnosis: Principal (6) Dehydration Diagnosis: Principal Travel History International Travel<30 Days: No Contact w/Intl Traveler <30 Da: No Traveled to Known Affected Are: No History of Present Illness This is a 40-year-old female with a PMH of Depression, Anorexia, Bulimia, h/o Malignant Melanoma s/p Resection, Gastroparesis, Chronic Back Pain and Alcohol Abuse who presented to the ER voluntarily w/ complaints of depression and suicidal ideation. States she recently started drinking again, now w/ decreased PO intake, occasional nausea, vomiting and depression. On arrival, BP 128/92, HR 82, O2 sat 97% on RA, Afebrile. While in ER, BP 70-80's systolic , improved after IVF, MAP 70's, no change in mental status. CBC unremarkable. K+ 2.8. GFR 73. LFTs mildly elevated. No evidence of acute alcohol withdrawal. Review of Systems Except as stated in HPI: all other systems reviewed are Neg ROS: 14 point review of systems otherwise negative. Past Family Social History Past Medical History PMH: Depression, Anorexia, Bulimia, h/o Malignant Melanoma s/p Resection, Gastroparesis, Chronic Back Pain and Alcohol Abuse Past Surgical History PAST SURGICAL HISTORY: Malignant Melanoma Resection, Eye Surgery Allergies: Coded Allergies: [place] (Verified Allergy, Severe, Seizures, 06/20/16) Morphine (Verified Adverse Reaction, Severe, Hives, 06/20/16) *MDRO Multi-Drug Resistant Organism (Verified Adverse Reaction, Unknown, Cleared 01/12/16, 06/20/16) MRSA (skin) - 07/2010 MRSA PCR Screens NEGATIVE - 12/10/15 & 01/12/16 Cleared per Infection Control Family History PAST FAMILY HISTORY: Reviewed. No h/o DM or CAD Social History PAST SOCIAL HISTORY: Chronic Alcohol Abuse. Negative for tobacco or drugs. Physical Exam Vital Signs Vital Signs Date Time Temp Pulse Resp B/P Pulse Ox O2 Delivery O2 Flow Rate FiO2 06/21/16 01:22 81 17 89/60 94 Room Air 06/21/16 01:14 83 17 106/64 96 Room Air 06/21/16 00:57 87 16 93/59 96 Room Air 06/21/16 00:48 18 94 Room Air 06/21/16 00:46 79/49 06/21/16 00:40 77 18 81/48 94 Room Air 06/20/16 22:48 76 18 97 Room Air 06/20/16 22:23 97.5 82 16 128/92 97 Room Air Physical Exam PE: GENERAL: Thin middle-aged female in no acute distress. HEENT: PERRLA, EOMI. No scleral icterus or conjunctival pallor. No lid lag or facial droop. CARDIOVASCULAR: Regular rate and rhythm. No obvious murmurs to auscultation. No chest tenderness to palpation. RESPIRATORY: No obvious rhonchi or wheezing. Clear to auscultation. Breath sounds equal bilaterally. GASTROINTESTINAL: Abdomen soft, non-tender, nondistended. BS normal. MUSCULOSKELETAL: Extremities without clubbing, cyanosis, or edema. No obvious deformities. NEUROLOGICAL: Awake, alert and oriented x4. No focal neurologic deficits. Moving both upper and lower extremities spontaneously. Laboratory Laboratory Tests Test 06/20/16 06/20/16 06/20/16 22:41 23:15 23:50 Sodium Level 130 Potassium Level 2.8 Chloride Level 90 Carbon Dioxide Level 28.4 Anion Gap 12 Blood Urea Nitrogen 6 Creatinine 0.85 Estimat Glomerular Filtration 73 Rate Random Glucose 94 Calcium Level 8.9 Magnesium Level 2.0 Total Bilirubin 0.5 Aspartate Amino Transf 116 (AST/SGOT) Alanine Aminotransferase 58 (ALT/SGPT) Alkaline Phosphatase 96 Total Protein 8.1 Albumin 4.0 Lipase 204 Thyroid Stimulating Hormone 3.240 3rd Gen White Blood Count 9.7 Red Blood Count 4.61 Hemoglobin 13.5 Hematocrit 39.5 Mean Corpuscular Volume 85.8 Mean Corpuscular Hemoglobin 29.2 Mean Corpuscular Hemoglobin 34.1 Concent Red Cell Distribution Width 15.1 Platelet Count 318 Mean Platelet Volume 6.9 Neutrophils (%) (Auto) 59.1 Lymphocytes (%) (Auto) 30.6 Monocytes (%) (Auto) 5.7 Eosinophils (%) (Auto) 3.9 Basophils (%) (Auto) 0.7 Neutrophils # (Auto) 5.7 Lymphocytes # (Auto) 3.0 Monocytes # (Auto) 0.5 Eosinophils # (Auto) 0.4 Basophils # (Auto) 0.1 CBC Comment DIFF FINAL Differential Comment Salicylates Level LESS THAN 1.7 Acetaminophen Level LESS THAN 2.0 Ethyl Alcohol Level 257 Urine Opiates Screen NEG Urine Barbiturates Screen NEG Urine Amphetamines Screen NEG Urine Benzodiazepines Screen POS Urine Cocaine Screen NEG Urine Cannabinoids Screen NEG Result Diagram: 06/20/16 7288 06/20/16 8607 Assessment and Plan Problem List: (1) Suicidal ideation ICD Code: R45.851 Status: Acute (2) Depression ICD Code: F32.9 Status: Chronic (3) Alcohol abuse ICD Code: F10.10 Status: Chronic (4) Hypotension ICD Code: I95.9 Status: Chronic (5) Dehydration ICD Code: E86.0 Status: Acute (6) Hypokalemia ICD Code: E87.6 Status: Acute Assessment and Plan A/P: 1. Suicidal Ideation: presented to ER on Voluntary basis for c/o depression w / suicidal ideation. Previous history of suicide attempt w/ intentional overdose, non on this occasion. Resume home medications. Psych consult for further evaluation. Not under [facility] Act as Voluntary. 2. Depression: On Fluoxetine/Trazodone as outpatient, will resume home medications. Consult Psych as above. 3. Alcohol Abuse: Long-standing alcohol abuse w/ recent relapse, s/p detox in the past. No evidence of acute withdrawal, however high risk, will start CIWA, Seizure Precautions, MVT/Thiamine/Folate replacement. 4. Hypotension: BP 70-80's systolic, good response w/ IVF, repeat BP 106/64, HR 83 w/ recurrent episode of hypotension, BP 89/60, HR 81, MAP 70, pt asymptomatic w/ no mental status changes. Continue w/ IVF, monitor BP. 5. Hypokalemia: K+ 2.8, s/p replacement in ER, will recheck and replace as needed. 6. DVT Prophylaxis: SCD/Teds. 7. Social work for d/c planning as needed. 8. Case discussed w/ ER physician at length Vicky Vitale MD June 21, 2016 01:51
[2016-06-21] MEDS ORDERED: RESP: ALBUTEROL 2.5 MG/IPRATROPIUM 0.5 MG NEB (PRN) NEB (07:30)
[2016-06-21 08:24] LABS: AUTOMATED NEUTROPHIL # 2.7 TH/MM3 (1.8-7.7); BASOPHIL % 0.4 % (0.0-2.0); EOSINOPHIL # 0.1 TH/MM3 (0-0.4); HEMATOCRIT 27.9 % (35.0-46.0); HEMO FLAGS DIFF FINAL; LYMPH % 44.5 % (9.0-44.0); LYMPHOCYTE # 2.7 TH/MM3 (1.0-4.8); MEAN CELL VOLUME 87.2 FL (80.0-100.0); MEAN CORPUSCULAR HEMOGLOBIN 29.2 PG (27.0-34.0); MEAN CORPUSCULAR HGB CONC 33.5 % (32.0-36.0); MONO % 7.5 % (0.0-8.0); NEUT % 45.6 % (16.0-70.0); PLATELET COUNT 255 TH/MM3 (150-450); RED CELL DISTRIBUTION WIDTH 15.6 % (11.6-17.2)
[2016-06-21 08:57] LABS: BICARBONATE 24.9 MEQ/L (21.0-32.0); POTASSIUM 4.1 MEQ/L (3.5-5.1); TOTAL BILIRUBIN ADULT 0.2 MG/DL (0.2-1.0)
[2016-06-21] MEDS ORDERED: FLUoxetine HCL 20 MG CAP PO SCH (09:00)
[2016-06-21] MEDS ORDERED: SODIUM CHLORIDE 0.9% FLUSH 10 ML FLUSH IV FLUSH SCH (09:00)
[2016-06-21] MEDS ORDERED: NON-FORMULARY DRUG (Tiotropium-Olodaterol Inh (Stiolto Respimat Inh) 2 PUFF) INH SCH (09:00)
[2016-06-21] MEDS ORDERED: MULTIVITAMINS/MINERALS THERAPEUTIC TAB PO SCH (09:00)
[2016-06-21] MEDS ORDERED: TIOTROPIUM BROMIDE 18 MCG INH INH SCH (09:00)
[2016-06-21] MEDS ORDERED: THIAMINE HCL 100 MG TAB PO SCH (09:00)
[2016-06-21] MEDS ORDERED: risperiDONE 0.5 MG TAB PO SCH (09:00)
[2016-06-21] MEDS ORDERED: FOLIC ACID 1 MG TAB PO SCH (09:00)
[2016-06-21] MEDS ORDERED: CALCIUM CARBONATE 500 MG CHEWABLE TAB CHEW ONE (09:30)
[2016-06-21 10:43] LABS: HEMATOCRIT 30.4 % (35.0-46.0); REVIEW FLAG FINAL
--- NOTE | 2016-06-21 13:04 | PD.CONS ---
Provisional Diagnosis Admission Date June 21, 2016 at 01:06 [place] I. Alcohol induced mood disorder, alcohol use disorder, history of bipolar disorder , depression, bulimia nervosa [place] II. Deferred [place] III. Gastroparesis, lower back pain [place] IV. Patient has multiple ER visits [facility]oy act due to alcohol related problems [place] V. 55 History of Present Illness Service Psychiatry Consult Requested By Primary Care Physician Shayne John M.D. HPI The patient is a 40-year-old woman, domiciled with roommate in [place], unemployed, single, with psychiatric history of alcohol related disorder , alcohol use disorder, Depression, Anorexia, Bulimia, previous psychiatric hospitalizations, previous detox/rehabilitation's, previous suicidal attempts, history of self cutting behavior, active outpatient psychiatric care with Mariza Stock, she is on trazodone 200 mg at bedtime, Prozac 60 mg, risperidone 0.5 mg twice a day, gabapentin 100 mg 3 times a day, medical history of h/o Malignant Melanoma s/p Resection, Gastroparesis, Chronic Back Pain, who presented to the ER voluntarily w/ complaints of depression and suicidal ideation. States she recently started drinking again, now w/ decreased PO intake, occasional nausea, vomiting and depression. On arrival, BP 128/92, HR 82, O2 sat 97% on RA, Afebrile. While in ER, BP 70-80's systolic, improved after IVF, MAP 70's, no change in mental status. CBC unremarkable. K+ 2.8. GFR 73. LFTs mildly elevated. On psychiatric evaluation today patient is found in her bed, calm, cooperative and pleasant. Patient explains that she has been losing the control of alcohol again in the last weeks. She says that yesterday she was really very drunk, was having suicidal thoughts and decided to come to the ER to feel safer. Patient now says that she feels ashamed alcohol such as huge problem in her life. She claims that she has been stable psychiatrically with new outpatient provider and current psychotropic regimen. At this moment the patient feels calmer, denies depressive symptoms, reports okay mood, denies suicidal or homicidal ideation, denies visual and auditory hallucinations. Patient is fully oriented 3, no attention deficit, no gross cognitive impairment observed. No withdrawal symptoms presents. Patient denies the use of illicit drugs. Review of Systems Constitutional: DENIES: Diaphoretic episodes, Fatigue, Fever, Weight gain, Weight loss, Chills, Dizziness, Change in appetite, Night Sweats Endocrine: DENIES: Abnorml menstrual pattern, Heat/cold intolerance, Polydipsia , Polyuria, Polyphagia Eyes: DENIES: Blurred vision, Diplopia, Eye inflammation, Eye pain, Vision loss , Photosensitivity, Double Vision Ears, nose, mouth, throat: DENIES: Tinnitus, Hearing loss, Vertigo, Nasal discharge, Oral lesions, Throat pain, Hoarseness, Ear Pain, Running Nose, Epistaxis, Sinus Pain, Toothache, Odynophagia Gastrointestinal: DENIES: Abdominal pain, Black stools, Bloody stools, Constipation, Diarrhea, Nausea, Vomiting, Difficulty Swallowing, Anorexia Genitourinary: DENIES: Abnormal vaginal bleeding, Dysmenorrhea, Dyspareunia, Sexual dysfunction, Urinary frequency, Urinary incontinence, Urgency, Hematuria , Dysuria, Nocturia, Vaginal discharge Musculoskeletal: COMPLAINS OF: Back pain, DENIES: Joint pain, Muscle aches, Stiffness, Joint Swelling, Neck pain Integumentary: DENIES: Abnormal pigmentation, Pruritus, Rash, Nail changes, Breast masses, Breast skin changes, Nipple discharge Hematologic/lymphatic: DENIES: Bruising, Lymphadenopathy Immunologic/allergic: DENIES: Eczema, Urticaria Neurologic: DENIES: Abnormal gait, Headache, Localized weakness, Paresthesias, Seizures, Speech Problems, Tremor, Poor Balance Past Family Social History Coded Allergies: [place] (Verified Allergy, Severe, Seizures, 06/20/16) Morphine (Verified Adverse Reaction, Severe, Hives, 06/20/16) *MDRO Multi-Drug Resistant Organism (Verified Adverse Reaction, Unknown, Cleared 01/12/16, 06/20/16) MRSA (skin) - 07/2010 MRSA PCR Screens NEGATIVE - 12/10/15 & 01/12/16 Cleared per Infection Control Active Scripts Ondansetron (Zofran)4 Mg Tab4 Mg PO Q8HR PRN (NAUSEA OR VOMITING) #15 TAB Ref 0 Prov:Laurel Bowman MD 05/24/16 Pantoprazole 40 Mg Tab40 Mg PO DAILY #30 TAB Ref 0 Prov:Laurel Bowman MD 05/24/16 Thiamine (Vitamin B-1)100 Mg [id number] Mg PO DAILY 10 Days Prov:aLurel Bowman MD 05/24/16 Reported Medications Tiotropium-Olodaterol Inh (Stiolto Respimat Inh) 2.5-2.5 Mcg/Act Aero2 Puff INH DAILY #1 INHALER Ref 0 06/20/16 Polyethylene Glycol 3350 Powder (Miralax Powder)17 Gm Powd17 Gm PO BID #1 BOTTLE Ref 0 Mix and dissolve one measuring cap-ful (17 grams) in water or juice. 06/20/16 Hydrocodone-Acetaminophen ([place])7.5-325 mg Tab1 Tab PO Q8HR PRN (PAIN) Ref 0 06/20/16 Ipratropium-Albuterol Neb (Duoneb)0.5-2.5 Mg/3 Ml Neb1 Nebule INH PRN (WHEEZING ) #120 NEBULE Ref 0 06/20/16 Gabapentin 100 Mg [id number] Mg PO TID #90 CAP Ref 0 06/20/16 Risperidone (Risperdal)0.5 Mg Tab0.5 Mg PO DAILY #30 TAB Ref 0 06/20/16 Trazodone 100 Mg Zfc665 Mg PO HS #30 TAB Ref 0 05/21/16 Fluoxetine (Prozac)20 Mg Cap60 Mg PO DAILY #30 CAP Ref 0 01/02/16 Discontinued Scripts Guaifenesin ER 12 HR (Mucinex ER 12 HR)600 Mg Ebklf775 Mg PO BID 5 Days Ref 0 Prov:Laurel Bowman MD 05/24/16 Amoxicillin-Clavulanate (Augmentin)875-125 mg Ymr585 Mg PO BID 7 Days Ref 0 not for use in CrCl <30 ml/min. Prov:Laurel Bowman MD 05/24/16 Tramadol-Acetaminophen 37.5-325 mg Tab1 Tab PO Q6HR PRN (PAIN SCALE 4 TO 10) # 28 TAB Ref 0 Prov:Laurel Bowman MD 05/24/16 Chlordiazepoxide 25 Mg Cap50 Mg PO Q8HR 5 Days Prov:Laurel Bowman MD 05/24/16 Current Medications Medications (Trade) Dose Ordered Sig/Susanna Route Start Time Stop Time Status Last Admin (NS Flush) 2 ml UNSCH PRN IV FLUSH 06/21/16 01:15 (NS Flush) 2 ml BID IV FLUSH 06/21/16 09:00 06/21/16 09:29 (Zofran Inj) 4 mg Q6H PRN IVP 06/21/16 01:15 06/21/16 10:48 (Dulcolax Supp) 10 mg DAILY PRN RECTAL 06/21/16 01:15 (Tylenol) 650 mg Q6H PRN PO 06/21/16 01:15 (Roxicodone) 10 mg Q4H PRN PO 06/21/16 01:15 (Roxicodone) 5 mg Q4H PRN PO 06/21/16 01:15 (Folate) 1 mg DAILY PO 06/21/16 09:00 06/26/16 08:59 06/21/16 09:30 (Vitamin B1) 100 mg DAILY PO 06/21/16 09:00 06/21/16 09:30 (Theragran M Tab) 1 tab DAILY PO 06/21/16 09:00 06/26/16 08:59 06/21/16 09:30 (Romazicon Inj) 0.2 mg Q1M PRN IV PUSH 06/21/16 01:30 (Ativan) 1 mg Q4H PRN PO 06/21/16 01:30 06/21/16 10:47 (Ativan Inj) 1 mg Q4H PRN IV PUSH 06/21/16 01:30 06/21/16 06:47 (Ativan) 2 mg Q2H PRN PO 06/21/16 01:30 (Ativan Inj) 2 mg Q2H PRN IV PUSH 06/21/16 01:30 (Ativan Inj) 2 mg Q1H PRN IV PUSH 06/21/16 01:30 (Ativan Inj) 2 mg Q15M PRN IV PUSH 06/21/16 01:30 (Haldol Inj) 2 mg Q15M PRN IM 06/21/16 01:30 (PROzac) 60 mg DAILY PO 06/21/16 09:00 06/21/16 09:30 (risperDAL) 0.5 mg DAILY PO 06/21/16 09:00 06/21/16 09:37 (Desyrel) 200 mg HS PO 06/21/16 21:00 (Spiriva Inh) 18 mcg DAILY INH 5/15/17 09:00 06/21/16 09:38 Family History Patient denies psychiatric family history Social History Patient was born and raised in [place], she is single, she lives in [place] with roommate, she has a daughter, she is unemployed, 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 2) Good level of education, insight of her alcohol problem Physical Exam On physical examination, no EPS, no stiffness, no tremors, no withdrawal symptoms, no gait disturbances present Vital Signs Vital Signs Date Time Temp Pulse Resp B/P Pulse Ox O2 Delivery O2 Flow Rate FiO2 06/21/16 12:11 98.0 84 17 121/88 96 06/21/16 03:20 Room Air Lab Results BAL 257, K initially was 2.8, now 4.1 Mental Status Examination Appearance woman, age appearing, good hygiene, [facility], she is calm, cooperative and pleasant Speech: Unremarkable Orientation: x3 Memory: Unremarkable Thought Process: Logical Thought Content: Unremarkable Hallucination Type: None Suicidal Ideation: No Previous Suicide Attempts: Yes Homicidal Ideation: No Previous Homicide Attempts: No Insight: Good Judgment: Poor Affect: Sad Mood: Euthymic Motor Activity: Normal gait Assessment & Plan Problem List: (1) Alcohol abuse with alcohol-induced mood disorder Assessment & Plan: At the moment of this psychiatric evaluation the patient does not present any acute, significant or concerning symptomatology of depression, anxiety, eva or psychosis. Patient denies suicidal and homicidal ideation, she denies visual and auditory hallucinations. Recent suicidal ideation was secondary and related with acute alcohol intoxication and was not the result of a primary psychiatric condition decompensation. Patient will not benefit of an inpatient psychiatric hospitalization. She would really benefit of detox, comprehensive rehabilitation program. She can continue her psychiatric care as an outpatient with current mental health provider, her next appointment is June 24, 2016. Continue current psychotropic regimen. Continue CIWA protocol. Extensive support, motivation psycho education provided. ICD Code: F10.14 Assessment & Plan Estimated LOS: Manuel Dunham MD June 21, 2016 13:03
[2016-06-21] MEDS ORDERED: chlordiazePOXIDE 25 MG CAP PO ONE (13:30)
--- NOTE | 2016-06-21 13:34 | HHI.PR ---
Subjective Remarks Follow-up for alcohol abuse. Patient states that she's feeling much better today. She states that she has a long history of alcohol abuse. She states that currently she is having some withdrawal symptoms with nausea and shakes. She denies any palpitations, chest pain, shortness of breath. She states that these withdrawal symptoms are mild compared to some she's had previously. She has been on Librium before. She states that she's been to detox and AA before, and plans to go back to doing that and abstaining from alcohol. She has been tolerating diet. No vomiting. She states she's been ambulating without difficulties. She reports her mood is improved today, and feels like it was low yesterday due to alcohol intoxication. Objective Vitals Vital Signs Date Time Temp Pulse Resp B/P Pulse Ox O2 Delivery O2 Flow Rate FiO2 06/21/16 12:11 98.0 84 17 121/88 96 06/21/16 10:11 81 06/21/16 07:29 98.3 88 17 107/70 93 06/21/16 04:51 77 06/21/16 04:36 98.0 84 20 120/77 96 06/21/16 03:20 92 17 114/64 94 Room Air 06/21/16 02:49 82 19 86/50 93 Room Air 06/21/16 02:33 84 15 85/54 93 Room Air 06/21/16 02:19 83 16 88/55 93 Room Air 06/21/16 02:00 79 14 93/56 93 Room Air 06/21/16 01:49 84 18 100/59 94 Room Air 06/21/16 01:22 81 17 89/60 94 Room Air 06/21/16 01:14 83 17 106/64 96 Room Air 06/21/16 00:57 87 16 93/59 96 Room Air 06/21/16 00:48 18 94 Room Air 06/21/16 00:46 79/49 06/21/16 00:40 77 18 81/48 94 Room Air 06/20/16 22:48 76 18 97 Room Air 06/20/16 22:23 97.5 82 16 128/92 97 Room Air I/O 06/20/16 06/20/16 06/20/16 06/21/16 06/21/16 06/21/16 06:59 14:59 22:59 06:59 14:59 22:59 Intake Total 1254 ml Balance 1254 ml Intake Oral 240 ml IV Total 1014 ml # Voids 3 Result Diagram: 06/21/16 1010 06/21/16 0744 Objective Remarks GENERAL: Well-developed well-nourished. In no acute distress. SKIN: Warm and dry. No lesions noted. HEENT: Normocephalic. Pupils equal and round. Mucous membranes pink and moist. CARDIOVASCULAR: Regular rate and rhythm. No murmur appreciated. RESPIRATORY: No accessory muscle use. Clear to auscultation. Breath sounds equal bilaterally. GASTROINTESTINAL: Abdomen soft, non-tender, nondistended. Bowel sounds x4. MUSCULOSKELETAL: No obvious deformities. No clubbing or cyanosis. No edema. NEUROLOGICAL: Awake and alert. No focal neurological deficits. Moves upper and lower extremities spontaneously. Normal speech. Mild tremors. PSYCHIATRIC: Slightly anxious mood and affect; insight and judgment normal. A/P Problem List: (1) Suicidal ideation ICD Code: R45.851 Status: Resolved (2) Depression ICD Code: F32.9 Status: Chronic (3) Alcohol abuse ICD Code: F10.10 Status: Chronic (4) Hypotension ICD Code: I95.9 Status: Chronic (5) Dehydration ICD Code: E86.0 Status: Resolved (6) Hypokalemia ICD Code: E87.6 Status: Resolved Assessment and Plan 40-year-old female with a PMH of Depression, Anorexia, Bulimia, h/o Malignant Melanoma s/p Resection, Gastroparesis, Chronic Back Pain and Alcohol Abuse who presented to the ER voluntarily w/ complaints of depression and suicidal ideation Suicidal Ideation with history of depression: presented to ER on Voluntary basis for c/o depression w/ suicidal ideation. Suspect secondary to alcohol intoxication. Continue home medications. Psych consulted, cleared for DC with outpatient psychiatry follow-up. Alcohol Abuse: Long-standing alcohol abuse w/ recent relapse, s/p detox in the past. Mild tremors, although no other further severe withdrawal symptoms. Start Librium taper. CIWA protocol. Patient declined case management input, plans to follow-up with AA and possible detox. Hypotension: Improved with IVF. Currently normotensive. Dehydration with electrolyte arrangement: Hypokalemia, hypocalcemia. K+ 2.8, replaced orally and by IV. Potassium now than normal limits. Protein corrected calcium 8.0, given Tums. Improved. Normocytic anemia: Hemoglobin on admission 13.5, possibly hemoconcentrated. Baseline hemoglobin appears to be 1011 on review of previous labs. Repeat hemoglobin stable at 10.2. DVT Prophylaxis: SCD/Teds. Discharge Planning Discharge patient to home Condition on discharge: Improved Regular Diet as tolerated Regular activity Rx written: Librium, folate, multivitamins, thiamine Follow-up with primary care physician and psychiatry Phil Tramemll June 21, 2016 13:34
[2016-06-21] MEDS ORDERED: CHLO25CA2 PO (13:37)
[2016-06-21] MEDS ORDERED: ZOFR4TAB PO (13:42)
[2016-06-21] MEDS ORDERED: FOLI1TAB4 PO (13:42)
[2016-06-21] MEDS ORDERED: VITA100T2 PO (13:42)
[2016-06-21] MEDS ORDERED: THERM PO (13:42)
[2016-06-21] MEDS ORDERED: traZODone HCL 100 MG TAB PO SCH (21:00)
== END 2016-06-21 15:35 | disposition home or self-care (01) ==
LOC: NEPC 22:21 → NEDA 06-21 01:06 → NEPFCDU 06-21 03:40
PROVIDERS: ADMIT Internal Medicine; ATTEND Internal Medicine
DX: F32.9 Major depressive disorder, single episode, unspecified (principal); R45.851 Suicidal ideations; F10.14 Alcohol abuse with alcohol-induced mood disorder; F50.2 Bulimia nervosa; E83.51 Hypocalcemia; D64.9 Anemia, unspecified; I95.9 Hypotension, unspecified; E86.0 Dehydration; E87.6 Hypokalemia; K31.84 Gastroparesis; G89.29 Other chronic pain; M54.9 Dorsalgia, unspecified; Z85.820 Personal history of malignant melanoma of skin; Z88.5 Allergy status to narcotic agent; Z91.048 Other nonmedicinal substance allergy status; Z79.899 Other long term (current) drug therapy; Z91.5 Personal history of self-harm; Z86.59 Personal history of other mental and behavioral disorders
CPT/HCPCS: 80053; 80307; 82948; 83690; 83735; 84443; 85014; 85018; 85025; 96374; 99284; G0378; J2060; J2405; J3480; J7030

== ENCOUNTER 2016-06-24 19:06 | Inpatient (IN) | payer OTHER ==
[2016-06-24] VITALS (8 sets, daily range): BP systolic 113–127; BP diastolic 76–84; PULSE 87–114; RESP 16–20; TEMP 97.8–99; O2SAT 98–100
[~2016-06-24] VITALS: Ht 157.5 cm; Wt 97.1 kg
[~2016-06-24 19:06] MED LIST changes: -AUGM875T PO; +FOLI1TAB4 PO; +GABA100C4 PO; +HYDR-3288 PO; +IPRASOL INH; +MIRA33504 PO; -MUCI600T PO; +RISP0.5T20 PO; +THERM PO; +TIOT1AER INH; -TRAM-388 PO
[2016-06-24] MEDS ORDERED: SODIUM CHLORIDE 0.9% FLUSH 10 ML FLUSH IVF PRN ×2 (19:45→22:00)
[2016-06-24] MEDS ORDERED: THIAMINE INJ 100 MG in SODIUM CHLORIDE 0.9% INJ 100 ML IV ONE (19:45)
[2016-06-24] MEDS ORDERED: SODIUM CHLOR 0.9% 1000 ML INJ 1,000 ML IV SCH ×2 (19:45→21:50)
[2016-06-24] MEDS ORDERED: ONDANSETRON HCL 4 MG/2 ML VIAL IV PUSH ONE ×2 (19:45→20:30)
[2016-06-24 19:59] LABS: AUTOMATED NEUTROPHIL # 26.1 TH/MM3 (1.8-7.7); BASOPHIL # 0.4 TH/MM3 (0-0.2); BASOPHIL % 1.3 % (0.0-2.0); EOSINOPHIL # 0.3 TH/MM3 (0-0.4); EOSINOPHIL % 1.1 % (0.0-4.0); HEMATOCRIT 43.5 % (35.0-46.0); LYMPH % 3.7 % (9.0-44.0); MEAN CORPUSCULAR HEMOGLOBIN 29.1 PG (27.0-34.0); MEAN CORPUSCULAR HGB CONC 33.8 % (32.0-36.0); MONO % 1.3 % (0.0-8.0); NEUT % 92.6 % (16.0-70.0); PLATELET COUNT 317 TH/MM3 (150-450); RED BLOOD COUNT 5.06 MIL/MM3 (4.00-5.30); RED CELL DISTRIBUTION WIDTH 14.8 % (11.6-17.2); WHITE BLOOD COUNT 28.2 TH/MM3 (4.0-11.0)
[2016-06-24 20:01] LABS: HEMO FLAGS DIFF FINAL
[2016-06-24 20:08] LABS: CHLORIDE 95 MEQ/L (98-107); SODIUM (NA) 139 MEQ/L (136-145)
[2016-06-24 20:12] LABS: ANION GAP 19 MEQ/L (5-15); BICARBONATE 24.7 MEQ/L (21.0-32.0)
--- NOTE | 2016-06-24 20:29 | RADHPO ---
EXAM DATE/TIME: 06/24/2016 20:14 [place] COMPARISON: CHEST SINGLE AP, May 21, 2016, 12:21. INDICATIONS : Syncope. MEDICAL HISTORY : Ulcers. Hernia, hiatal. Pancreatitis.Cirrhosis. SURGICAL HISTORY : None. ENCOUNTER: Initial ACUITY: 1 day PAIN SCORE: 0/10 LOCATION: Bilateral chest FINDINGS: A single view of the chest demonstrates the lungs to be symmetrically aerated without evidence of mas s, infiltrate or effusion. The cardiomediastinal contours are unremarkable. Osseous structures are intact. CONCLUSION: No acute disease. Manfred Zaidi MD FACR on June 24, 2016 at 20:27 Board Certified Radiologist. This report was verified electronically.
[2016-06-24] MEDS ORDERED: LORazepam 2 MG/ML VIAL IV PUSH ONE (20:30)
[2016-06-24] MEDS ORDERED: SODIUM CHLORID 0.9% 500 ML INJ 500 ML IV ONE (20:30)
[2016-06-24] MEDS ORDERED: POTASSIUM CHLORIDE 20 MEQ CONTROLLED RELEASE TAB PO ONE ×2 (20:30→22:00)
[2016-06-24 20:39] LABS: ALKALINE PHOSPHATASE 108 U/L (45-117); ALT (GPT) 61 U/L (10-53); AST (GOT) 137 U/L (15-37); BLOOD UREA NITROGEN 10 MG/DL (7-18); GLOMERULAR FILTRATION RATE 70 ML/MIN (>89); MAGNESIUM 2.1 MG/DL (1.5-2.5); TOTAL BILIRUBIN ADULT 0.3 MG/DL (0.2-1.0)
--- NOTE | 2016-06-24 20:59 | PD ---
HPI Chief Complaint: OD/ Ingestion Time Seen by Provider: 19:27 Travel History International Travel<30 days: No Contact w/Intl Traveler<30days: No Traveled to known affect area: No History of Present Illness HPI 40-year-old female presents to the emergency department by private transportation for evaluation of alcohol related illness. Patient reports that she has been drinking alcohol excessively over the past month. Patient states she has been hospitalized recently for elective disturbance and alcohol related illness. Patient states that she feels chronically with anorexia and depression and alcohol abuse. Patient states that today she vomited at least 5 times nonbilious [id number] nonbloody emesis. Patient denies any pain. Patient denies suicidal ideation or homicidal ideation. Patient states she was just recently in the hospital for depression. Patient states that she is unable to control her alcohol abuse. Patient's had no diarrhea. Patient denies fever or chills. No cough or congestion or shortness of breath. No complaint of chest pain. No flank pain. Patient has had fainting spells but has had no injury. Patient states she has not hit her head on the ground. Patient's had no seizure activity according to significant other. Patient's had no tongue trauma and no bladder or bowel incontinence. PFSH Past Medical History Narrative Medical Anxiety depression alcoholism and suicidal ideation anorexia bulimia electrolyte disturbance; alcohol abuse; nursing notes reviewed Hx Anticoagulant Therapy: No Anemia: Yes Arthritis: Yes Asthma: No Autoimmune Disease: No Blood Disorders: No Bipolar Disorder: Yes Anxiety: Yes Depression: Yes Heart Rhythm Problems: No Cancer: Yes ( melanoma abdomen) Cardiovascular Problems: No High Cholesterol: No Chemotherapy: No Chest Pain: No Congestive Heart Failure: No Cirrhosis: Yes (DX WITH FATTY LIVER 10-15 YEARS AGO) COPD: No Cerebrovascular Accident: No Developmental Delay: No Diabetes: No Diminished Hearing: No Endocrine: No Gastrointestinal Disorders: Yes (DELAYED GASTRIC EMPTYING, ) GERD: Yes Genitourinary: No Hiatal Hernia: Yes Hypertension: No Immune Disorder: No Implanted Vascular Access Dvce: No Insomnia: Yes Kidney Stones: No Musculoskeletal: Yes (hurt back 1 month ago) Neurologic: Yes Psychiatric: Yes Reproductive: No Respiratory: Yes (pneumonia in dec) Integumentary: Yes (07/2010- MRSA TO BILATERAL ARMS) Immunizations Current: Yes Migraines: Yes Myocardial Infarction: No Pancreatitis: Yes Radiation Therapy: No Renal Failure: No Seizures: Yes (last night questionable ) Sleep Apnea: No Thyroid Disease: No Ulcer: Yes : 3 Para: 1 Miscarriage: 1 : 1 Past Surgical History Abdominal Surgery: No AICD: No Arteriovenous Shunt: No Cardiac Surgery: No Ear Surgery: No Endocrine Surgery: No Eye Surgery: Yes (PT STATES SHE HAD EYE SURGERY FOR "[employer]" WHEN SHE WAS 3 YEARS OLD.) Genitourinary Surgery: No Gynecologic Surgery: No Hysterectomy: No Insulin Pump: No Joint Replacement: No Neurologic Surgery: No Oral Surgery: No Pacemaker: No Thoracic Surgery: No Social History Alcohol Use: Yes (CHRONIC ALCOHOLIC) Tobacco Use: No Substance Use: No Allergies-Medications (Allergen,Severity, Reaction): Coded Allergies: [place] (Verified Allergy, Severe, Seizures, 06/24/16) Morphine (Verified Adverse Reaction, Severe, Hives, 06/24/16) *MDRO Multi-Drug Resistant Organism (Verified Adverse Reaction, Unknown, Cleared 01/12/16, 06/24/16) MRSA (skin) - 07/2010 MRSA PCR Screens NEGATIVE - 12/10/15 & 01/12/16 Cleared per Infection Control Reported Meds & Prescriptions Reported Meds & Active Scripts Active Vitamin B-1 (Thiamine HCl) 100 Mg Tab 100 Mg PO DAILY Thera M Plus (Multivitamins/Minerals Therapeutic) 1 Tab 1 Tab PO DAILY Folate (Folic Acid) 1 Mg Tab 1 Mg PO DAILY Zofran (Ondansetron HCl) 4 Mg Tab 4 Mg PO Q8HR PRN Chlordiazepoxide (Chlordiazepoxide HCl) 25 Mg Cap 25 Mg PO TID PRN Take THREE Times daily for 3 Days, then TWICE daily for 3 days, then ONCE a day for 3 Days. Pantoprazole (Pantoprazole Sodium) 40 Mg Tab 40 Mg PO DAILY Reported Stiolto Respimat Inh (Tiotropium-Olodaterol Inh) 2.5-2.5 Mcg/Act Aero 2 Puff INH DAILY Miralax Powder (Polyethylene Glycol 3350 Powder) 17 Gm Powd 17 Gm PO BID Mix and dissolve one measuring cap-ful (17 grams) in water or juice. [place] (Hydrocodone-Acetaminophen) 7.5-325 mg Tab 1 Tab PO Q8HR PRN Duoneb (Ipratropium-Albuterol Neb) 0.5-2.5 Mg/3 Ml Neb 1 Nebule INH PRN Gabapentin 100 Mg Cap 100 Mg PO TID Risperdal (Risperidone) 0.5 Mg Tab 0.5 Mg PO DAILY Trazodone (Trazodone HCl) 100 Mg Tab 200 Mg PO HS Prozac (Fluoxetine HCl) 20 Mg Cap 60 Mg PO DAILY Review of Systems Except as stated in HPI: all other systems reviewed are Neg General / Constitutional: No: Fever, Chills Eyes: No: Visual changes HENT: No: Headaches, Lightheadedness, Congestion, Neck Pain Cardiovascular: No: Chest Pain or Discomfort, Diaphoresis Respiratory: No: Shortness of Breath Gastrointestinal: Positive: Nausea, Vomiting, No: Diarrhea, Abdominal Pain Genitourinary: No: Dysuria, Flank Pain Musculoskeletal: No: Myalgias, Arthralgias Skin: No Rash Neurologic: Positive: Weakness, Syncope (occasional), No: Dizziness, Focal Abnormalities Psychiatric: Positive: Anxiety, Depression, Mood Disorder, No: Suicidal Ideations, Disorder of Thought, Substance Abuse, Homicidal Ideation Endocrine: No: Heat Intolerance Hematologic/Lymphatic: No: Easy Bruising Physical Exam Narrative General: Well-developed thin female in no acute distress no respiratory distress; GCS 15 SKIN: Warm and dry. HEAD: Atraumatic. Normocephalic. EYES: Pupils equal and round. No scleral icterus. No injection or drainage. ENT: No nasal bleeding or discharge. Mucous membranes pink and moist. NECK: Trachea midline. No JVD. Supple no meningismus no nuchal rigidity CARDIOVASCULAR: Increased regular rate and rhythm. RESPIRATORY: No accessory muscle use. Clear to auscultation. Breath sounds equal bilaterally. GASTROINTESTINAL: Abdomen soft, non-tender, nondistended. Hepatic and splenic margins not palpable. MUSCULOSKELETAL: Extremities without clubbing, cyanosis, or edema. No obvious deformities. NEUROLOGICAL: Awake and alert. No obvious cranial nerve deficits. Motor grossly within normal limits. Five out of 5 muscle strength in the arms and legs. Normal speech. PSYCHIATRIC: Appropriate mood and affect; insight and judgment normal. Data Data Last Documented VS Vital Signs Date Time Temp Pulse Resp B/P Pulse Ox O2 Delivery O2 Flow Rate FiO2 06/24/16 20:20 108 18 115/81 99 Room Air 06/24/16 19:35 99.0 Orders Electrocardiogram (06/24/16 19:33) Complete Blood Count With Diff (06/24/16 19:33) Comprehensive Metabolic Panel (06/24/16 19:33) Urinalysis - C+S If Indicated (06/24/16 19:33) Chest, Single Ap (06/24/16 19:33) Blood Glucose (06/24/16 19:33) Iv Access Insert/Monitor (06/24/16 19:33) Ecg Monitoring (06/24/16:33) Oximetry (06/24/16:33) Sodium Chloride 0.9% Flush (Ns Flush) (06/24/16 19:45) Drug Screen, Random Urine (06/24/16 19:33) Alcohol (Ethanol) (06/24/16 19:33) Salicylates (Aspirin) (06/24/16 19:33) Tylenol (Acetaminophen) (06/24/16 19:33) Magnesium (Mg) (06/24/16 19:33) Thiamine Inj (Thiamine Inj) (06/24/16 19:45) Ondansetron Inj (Zofran Inj) (06/24/16 19:45) Sodium Chlor 0.9% 1000 Ml Inj (Ns 1000 M (06/24/16 19:45) Ed Urine Pregnancytest Poc (06/24/16 19:33) Potassium Chloride (Kcl) (06/24/16 20:30) Ondansetron Inj (Zofran Inj) (06/24/16 20:30) Sodium Chlorid 0.9% 500 Ml Inj (Ns 500 M (06/24/16 20:30) Lorazepam Inj (Ativan Inj) (06/24/16 20:30) Blood Culture (06/24/16 20:24) Lactic Acid (06/24/16 20:24) D5-Ns + Kcl 40 Meq Inj (D5-Ns + Kcl 40 M (06/24/16 21:00) Dextrose 50% In Lauren (Vial) Inj (D50w (Vi (06/24/16 21:00) Place In Observation (06/24/16 ) Vital Signs (Adult) Q4H (06/24/16 21:50) Activity Oob With Assistance (06/24/16 21:50) Area Counselor / Telemetry .CONTINUOUS (06/24/16 21:50) Diet Regular Basic (06/25/16 Breakfast) Sodium Chlor 0.9% 1000 Ml Inj (Ns 1000 M (06/24/16 21:50) Sodium Chloride 0.9% Flush (Ns Flush) (06/24/16 22:00) Sodium Chloride 0.9% Flush (Ns Flush) (06/25/16 09:00) Ondansetron Inj (Zofran Inj) (06/24/16 22:00) Comprehensive Metabolic Panel (06/25/16 06:00) Complete Blood Count With Diff (06/25/16 06:00) Case Management Consult (06/24/16 21:50) Naloxone Inj (Narcan Inj) (06/24/16 22:00) Admit Order (Ed Use Only) (06/24/16 ) ^ Saline Lock (06/24/16 21:50) Resp Oxygen [place] C [place] 1-4 L (06/24/16 ) Notify Dr: Other (06/24/16 21:50) Bedside Glucose Q15M (06/24/16 21:52) Hypoglycemia 70 Mg/Dl Or < (06/24/16 21:52) Dextrose 50% In Lauren (Vial) Inj (D50w (Vi (06/24/16 22:00) Glucagon Inj (Glucagon Inj) (06/24/16 22:00) Glucose, Random (06/24/16 21:52) Thiamine (Vit B1) (Vitamin B1) (06/25/16 09:00) Lorazepam Inj (Ativan Inj) (06/24/16 22:00) Labs Laboratory Tests Test 06/24/16 19:50 White Blood Count 28.2 TH/MM3 Red Blood Count 5.06 MIL/MM3 Hemoglobin 14.7 GM/DL Hematocrit 43.5 % Mean Corpuscular Volume 86.0 FL Mean Corpuscular Hemoglobin 29.1 PG Mean Corpuscular Hemoglobin 33.8 % Concent Red Cell Distribution Width 14.8 % Platelet Count 317 TH/MM3 Mean Platelet Volume 6.4 FL Neutrophils (%) (Auto) 92.6 % Lymphocytes (%) (Auto) 3.7 % Monocytes (%) (Auto) 1.3 % Eosinophils (%) (Auto) 1.1 % Basophils (%) (Auto) 1.3 % Neutrophils # (Auto) 26.1 TH/MM3 Lymphocytes # (Auto) 1.0 TH/MM3 Monocytes # (Auto) 0.4 TH/MM3 Eosinophils # (Auto) 0.3 TH/MM3 Basophils # (Auto) 0.4 TH/MM3 CBC Comment DIFF FINAL Differential Comment Sodium Level 139 MEQ/L Potassium Level 3.0 MEQ/L Chloride Level 95 MEQ/L Carbon Dioxide Level 24.7 MEQ/L Anion Gap 19 MEQ/L Blood Urea Nitrogen 10 MG/DL Creatinine 0.89 MG/DL Estimat Glomerular Filtration 70 ML/MIN Rate Random Glucose 47 MG/DL Calcium Level 8.7 MG/DL Magnesium Level 2.1 MG/DL Total Bilirubin 0.3 MG/DL Aspartate Amino Transf 137 U/L (AST/SGOT) Alanine Aminotransferase 61 U/L (ALT/SGPT) Alkaline Phosphatase 108 U/L Total Protein 8.0 GM/DL Albumin 4.0 GM/DL Salicylates Level LESS THAN 1.7 MG/DL Acetaminophen Level LESS THAN 2.0 MCG/ML Ethyl Alcohol Level 301 MG/DL [facility] Medical Decision Making Medical Screen Exam Complete: Yes Emergency Medical Condition: Yes Medical Record Reviewed: Yes Interpretation(s) EKG: sinus tachycardia rate [address] elevation or injury pattern change noted nonspecific ST segment flattening inferiorly and anteroseptally Differential Diagnosis Alcohol abuse, alcohol withdrawal, polysubstance ingestion, overdose, electrolyte disturbance, mood disorder, depression, UTI, pneumonia Narrative Course Patient placed on cardiac rn IV access obtained specimens collected and sent for resulting; EKG performed sinus tachycardia rate [address] elevation or injury pattern change noted nonspecific ST segment flattening inferiorly and anteroseptally bgm: 59 at bedside after stat lab result 47 Patient with episode of emesis after receiving oral potassium Patient given additional IV fluid bolus along with one half amp of D50 as well as D5 normal saline with 40 mg tablets of potassium at 125 cc per hour Patient's case discussed with on-call medicine physician for admission in view of marked leukocytosis or blood cultures have been obtained but lactic acid is pending and aware that initial acetaminophen and salicylate levels are normal range urine drug screen only shows benzodiazepines return administered through the emergency department and serum alcohol is 301. Aware patient is intimately tremulous blood pressure has been stable in normal range. Patient in no respiratory distress. Concern for patient with low tolerance for alcohol withdrawal possible seizure. Leukocytosis may reflect multiple episodes of vomiting and hydration status. Patient is not suicidal recently discharged from the hospital for alcohol-induced mood disorder as above 04/21/16. Patient is not a Leroy act. Patient is here voluntarily and cooperative. Critical Care Narrative Aggregate critical care time was 35 minutes. Time to perform other separately billable procedures was not included in the critical care time. My time did not include minutes spent treating any other patients simultaneously or on activities that did not directly contribute to the patient's treatment. The services I provided to this patient were to treat and/or prevent clinically significant deterioration that could result in: Polysubstance overdose, arrhythmia, sepsis, I provided critical care services requiring my management, as noted below: Chart data review, documentation time, medication orders and management, vital sign assessments/reviewing monitor data, ordering and reviewing lab tests, ordering and interpreting/reviewing x-rays and diagnostic studies, care of the patient and discussion of the patient with the admitting physicians. Physician Communication Physician Communication discussed with Dr Flores for admission Diagnosis Primary Impression: Intractable nausea and vomiting Qualified Code: R11.2 - Intractable vomiting with nausea, unspecified vomiting type Additional Impressions: Alcohol abuse Alcohol abuse with alcohol-induced mood disorder Hypoglycemia Admitting Information Admitting Physician Requests: Admit Kim Sams MD June 24, 2016 20:59
[2016-06-24] MEDS ORDERED: D5-NS + KCL 40 MEQ INJ 1,000 ML IV SCH (21:00)
[2016-06-24] MEDS ORDERED: DEXTROSE 50% IN WATER 50 ML VIAL(D50) IV PUSH ONE (21:00)
[2016-06-24 21:32] LABS: ACETAMINOPHEN LESS THAN 2.0 MCG/ML (10.0-30.0)
[2016-06-24] MEDS ORDERED: GLUCAGON 1 MG/ML VIAL IM ONE (22:00)
[2016-06-24] MEDS ORDERED: SODIUM CHLORIDE 0.9% FLUSH 10 ML FLUSH IV FLUSH PRN (22:00)
[2016-06-24] MEDS ORDERED: DEXTROSE 50% IN WATER 50 ML VIAL(D50) IV ONE (22:00)
[2016-06-24] MEDS ORDERED: NALOXONE HCL 0.4 MG/ML AMP IV PRN (22:00)
[2016-06-24 22:10] LABS: GLUCOSE,URINE NEG (NEG); NITRITE,URINE NEG (NEG)
[2016-06-24 22:12] LABS: BLOOD, URINE MOD (NEG); KETONE, URINE 80 OR GREATER mg/dL (NEG)
[2016-06-24 22:15] LABS: AMPHETAMINE, URINE NEG (NEG); COMMENT (UR) CULT NOT INDICATED; CULTURE IF INDICATED CULT NOT INDICATED; HYALINE CAST, URINE 0-2 /lpf (RARE); SQUAMOUS EPITHELIAL CELL URINE > 8 /hpf (0-5); URINE COLOR YELLOW (YELLW/STRAW); WBC, URINE 0-2 /hpf (0-5)
[2016-06-24 22:16] LABS: BARBITURATES, URINE NEG (NEG); COCAINE, URINE NEG (NEG)
[2016-06-24] MEDS: ONDANSETRON HCL 4 MG/2 ML VIAL IVP PRN (22:48)
[2016-06-24] MEDS: LORazepam 2 MG/ML VIAL IV PUSH PRN (22:48)
[2016-06-24] MEDS ORDERED: METOCLOPRAMIDE HCL 10 MG/2 ML VIAL IV PUSH ONE (23:15)
[2016-06-24] MEDS: DEXT 5%-NACL 0.45% 1000 ML INJ 1,000 ML IV SCH (23:29)
[2016-06-25] VITALS (9 sets, daily range): BP systolic 118–168; BP diastolic 75–107; PULSE 60–115; RESP 14–20; TEMP 98.4–99.8; O2SAT 96–99
[2016-06-25] MEDS: LORazepam 2 MG/ML VIAL IV PUSH PRN ×6 (01:51→14:43)
[2016-06-25 05:12] LABS: AUTOMATED NEUTROPHIL # 11.1 TH/MM3 (1.8-7.7); BASOPHIL # 0.3 TH/MM3 (0-0.2); BASOPHIL % 2.5 % (0.0-2.0); EOSINOPHIL % 0.2 % (0.0-4.0); LYMPH % 9.6 % (9.0-44.0); LYMPHOCYTE # 1.3 TH/MM3 (1.0-4.8); MONO % 2.2 % (0.0-8.0); NEUT % 85.5 % (16.0-70.0); PLATELET COUNT 235 TH/MM3 (150-450)
[2016-06-25 05:22] LABS: MEAN CELL VOLUME 85.6 FL (80.0-100.0); MEAN CORPUSCULAR HEMOGLOBIN 29.2 PG (27.0-34.0); RED BLOOD COUNT 3.77 MIL/MM3 (4.00-5.30)
[2016-06-25 05:23] LABS: HEMATOCRIT 32.3 % (35.0-46.0); HEMO FLAGS DIFF FINAL; RED CELL DISTRIBUTION WIDTH 14.9 % (11.6-17.2)
[2016-06-25 05:26] LABS: ALKALINE PHOSPHATASE 78 U/L (45-117); ALT (GPT) 49 U/L (10-53); ANION GAP 13 MEQ/L (5-15); AST (GOT) 99 U/L (15-37); BICARBONATE 24.5 MEQ/L (21.0-32.0); BLOOD UREA NITROGEN 9 MG/DL (7-18); CHLORIDE 99 MEQ/L (98-107); GLOMERULAR FILTRATION RATE 89 ML/MIN (>89); POTASSIUM 4.4 MEQ/L (3.5-5.1); SODIUM (NA) 136 MEQ/L (136-145); TOTAL BILIRUBIN ADULT 0.2 MG/DL (0.2-1.0)
[2016-06-25] MEDS: ONDANSETRON HCL 4 MG/2 ML VIAL IVP PRN ×2 (05:56→22:50)
[2016-06-25] MEDS: THIAMINE HCL 100 MG TAB PO SCH (08:03)
[2016-06-25] MEDS: DEXT 5%-NACL 0.45% 1000 ML INJ 1,000 ML IV SCH ×3 (08:30→22:14)
[2016-06-25] MEDS ORDERED: FLUMAZENIL 0.5 MG/5 ML VIAL IV PUSH PRN (09:00)
[2016-06-25] MEDS ORDERED: LORazepam 2 MG/ML VIAL IV PUSH PRN ×3 (09:00→17:30)
[2016-06-25] MEDS ORDERED: SODIUM CHLORIDE 0.9% FLUSH 10 ML FLUSH IV FLUSH SCH ×2 (09:00)
[2016-06-25] MEDS: SODIUM CHLORIDE 0.9% FLUSH 10 ML FLUSH IV FLUSH SCH ×2 (09:00→22:50)
--- NOTE | 2016-06-25 12:05 | HHI.HP ---
[facility] Shayne John M.D. Admission Diagnosis intractable vomiting; alcoholism; alcohol mood disorder Diagnoses: (1) Lactic acidosis Diagnosis: Principal (2) Delirium tremens Diagnosis: Principal (3) Hypoglycemia Diagnosis: Principal (4) Hyperemesis Diagnosis: Principal (5) Gastroparesis Diagnosis: Secondary (6) Anorexia nervosa with bulimia Diagnosis: Secondary (7) Dehydration Diagnosis: Principal (8) Alcohol use disorder Diagnosis: Secondary Travel History International Travel<30 Days: No Contact w/Intl Traveler <30 Da: No Traveled to Known Affected Are: No History of Present Illness Mrs. Orellana is a 40-year-old female. She has a history of alcohol abuse. Yesterday she started having hyperemesis in the afternoon. She arrived to the ER with dehydration and hyperemesis. She was also delirium tremens. This has worsened through today. LFTs were elevated and have improved her today. LFT elevation is likely secondary to alcohol abuse. Her lactic acid level was also significantly elevated yesterday and though it is improved on a second recheck has not normalized. The lactic acidosis is secondary to alcohol abuse and dehydration with hyperemesis. Additionally she had hypoglycemia and last night was started on the 5% dextrose IV solution which has normalized her blood sugars. Presently she is in delirium tremens with significant amount of symptoms including tremors and hyperemesis as well as low-grade fever. She is on a [place] scale currently but unable to tolerate Librium thus far. Gastroparesis is present at baseline and complicates her hyperemesis picture. Additionally she has anorexia/bulimia at baseline. She is not a smoker and does not do other drugs. No other complaints. Review of Systems Constitutional: DENIES: Fatigue, Fever, Chills Eyes: DENIES: Blurred vision, Diplopia Ears, nose, mouth, throat: DENIES: Hearing loss, Vertigo Respiratory: DENIES: Cough, Wheezing, Shortness of breath Cardiovascular: DENIES: Chest pain, Palpitations, Syncope Gastrointestinal: COMPLAINS OF: Abdominal pain, Nausea, Vomiting, Anorexia, DENIES: Black stools, Bloody stools Musculoskeletal: DENIES: Joint pain, Muscle aches, Stiffness Integumentary: DENIES: Abnormal pigmentation Hematologic/lymphatic: DENIES: Bruising Immunologic/allergic: DENIES: Eczema Neurologic: COMPLAINS OF: Tremor, Poor Balance, DENIES: Abnormal gait Psychiatric: DENIES: Anxiety, Confusion, Mood changes Past Family Social History Past Medical History Alcohol abuse Gastroparesis Anorexia/bulimia Past Surgical History None Reported Medications Reported Meds & Active Scripts Active Vitamin B-1 (Thiamine HCl) 100 Mg Tab 100 Mg PO DAILY Thera M Plus (Multivitamins/Minerals Therapeutic) 1 Tab 1 Tab PO DAILY Folate (Folic Acid) 1 Mg Tab 1 Mg PO DAILY Zofran (Ondansetron HCl) 4 Mg Tab 4 Mg PO Q8HR PRN Chlordiazepoxide (Chlordiazepoxide HCl) 25 Mg Cap 25 Mg PO TID PRN Take THREE Times daily for 3 Days, then TWICE daily for 3 days, then ONCE a day for 3 Days. Pantoprazole (Pantoprazole Sodium) 40 Mg Tab 40 Mg PO DAILY Reported Stiolto Respimat Inh (Tiotropium-Olodaterol Inh) 2.5-2.5 Mcg/Act Aero 2 Puff INH DAILY Miralax Powder (Polyethylene Glycol 3350 Powder) 17 Gm Powd 17 Gm PO BID Mix and dissolve one measuring cap-ful (17 grams) in water or juice. [place] (Hydrocodone-Acetaminophen) 7.5-325 mg Tab 1 Tab PO Q8HR PRN Duoneb (Ipratropium-Albuterol Neb) 0.5-2.5 Mg/3 Ml Neb 1 Nebule INH PRN Gabapentin 100 Mg Cap 100 Mg PO TID Risperdal (Risperidone) 0.5 Mg Tab 0.5 Mg PO DAILY Trazodone (Trazodone HCl) 100 Mg Tab 200 Mg PO HS Prozac (Fluoxetine HCl) 20 Mg Cap 60 Mg PO DAILY Allergies: Coded Allergies: [place] (Verified Allergy, Severe, Seizures, 06/24/16) Morphine (Verified Adverse Reaction, Severe, Hives, 06/24/16) *MDRO Multi-Drug Resistant Organism (Verified Adverse Reaction, Unknown, Cleared 01/12/16, 06/24/16) MRSA (skin) - 07/2010 MRSA PCR Screens NEGATIVE - 12/10/15 & 01/12/16 Cleared per Infection Control Active Ordered Medications Administered Medications Medications (Trade) Dose Ordered Sig/Susanna Route PRN Reason Start Time Stop Time Status Last Admin Dose Admin Ondansetron HCl (Zofran Inj) 4 mg Q6H PRN IVP NAUSEA OR VOMITING 06/24/16 22:00 06/25/16 05:56 Thiamine HCl (Vitamin B1) 100 mg DAILY PO 06/25/16 09:00 06/25/16 08:03 Lorazepam 1 mg 1 mg Q2H PRN IV PUSH withdrawal symptoms 06/24/16 22:00 06/25/16 08:03 Dextrose/Sodium Chloride (D5W-1/2 NS 1000 ml Inj) 1,000 ml @ 100 mls/hr Q10H IV 06/24/16 22:30 06/25/16 08:30 Sodium Chloride (NS Flush) 2 ml BID IV FLUSH 06/25/16 09:00 06/25/16 09:00 Lorazepam (Ativan Inj) 2 mg Q15M PRN IV PUSH CIWA > 20 06/25/16 09:00 06/25/16 09:17 Family History None Social History Alcohol abuse No smoking No drug abuse Physical Exam Vital Signs Vital Signs Date Time Temp Pulse Resp B/P Pulse Ox O2 Delivery O2 Flow Rate FiO2 06/25/16 08:00 96 21 06/25/16 08:00 99.0 80 18 145/93 99 06/25/16 04:00 99.8 115 16 136/94 96 06/25/16 01:10 98.8 102 16 118/88 96 06/25/16 00:30 98.9 102 18 118/75 98 06/24/16 23:30 99 21 06/24/16 23:15 91 17 126/76 98 Room Air 06/24/16 22:00 Room Air 06/24/16 21:54 96 18 127/84 99 Room Air 06/24/16 20:20 108 18 115/81 99 Room Air 06/24/16 19:50 107 20 113/77 99 Room Air 06/24/16 19:45 100 Room Air 06/24/16 19:45 99 Room Air 06/24/16 19:35 99.0 114 19 117/82 06/24/16 19:09 97.8 87 16 117/83 100 Physical Exam GENERAL: NAD, A&Ox3, global cachexia SKIN: Warm and dry. HEAD: Normocephalic. EYES: No scleral icterus. No injection or drainage. NECK: Supple, trachea midline. No JVD or lymphadenopathy. CARDIOVASCULAR: Regular rate and rhythm without murmurs, gallops, or rubs. RESPIRATORY: Breath sounds equal bilaterally. No accessory muscle use. GASTROINTESTINAL: Abdomen soft, non-tender, nondistended. MUSCULOSKELETAL: No cyanosis, or edema. NEURO: No focal deficits, global gross tremors Laboratory Laboratory Tests Test 06/24/16 06/24/16 06/24/16 06/25/16 19:50 22:00 23:50 04:50 White Blood Count 28.2 13.0 Red Blood Count 5.06 3.77 Hemoglobin 14.7 11.0 Hematocrit 43.5 32.3 Mean Corpuscular Volume 86.0 85.6 Mean Corpuscular Hemoglobin 29.1 29.2 Mean Corpuscular Hemoglobin 33.8 34.0 Concent Red Cell Distribution Width 14.8 14.9 Platelet Count 317 235 Mean Platelet Volume 6.4 6.7 Neutrophils (%) (Auto) 92.6 85.5 Lymphocytes (%) (Auto) 3.7 9.6 Monocytes (%) (Auto) 1.3 2.2 Eosinophils (%) (Auto) 1.1 0.2 Basophils (%) (Auto) 1.3 2.5 Neutrophils # (Auto) 26.1 11.1 Lymphocytes # (Auto) 1.0 1.3 Monocytes # (Auto) 0.4 0.3 Eosinophils # (Auto) 0.3 0.0 Basophils # (Auto) 0.4 0.3 CBC Comment DIFF FINAL DIFF FINAL Differential Comment Sodium Level 139 136 Potassium Level 3.0 4.4 Chloride Level 95 99 Carbon Dioxide Level 24.7 24.5 Anion Gap 19 13 Blood Urea Nitrogen 10 9 Creatinine 0.89 0.72 Estimat Glomerular Filtration 70 89 Rate Random Glucose 47 154 111 Calcium Level 8.7 7.5 Magnesium Level 2.1 Total Bilirubin 0.3 0.2 Aspartate Amino Transf 137 99 (AST/SGOT) Alanine Aminotransferase 61 49 (ALT/SGPT) Alkaline Phosphatase 108 78 Total Protein 8.0 6.2 Albumin 4.0 3.0 Salicylates Level LESS THAN 1.7 Acetaminophen Level LESS THAN 2.0 LESS THAN 2.0 Ethyl Alcohol Level 301 Urine Color YELLOW Urine Turbidity HAZY Urine pH 6.0 Urine Specific [place] 1.015 Urine Protein 30 Urine Glucose (UA) NEG Urine Ketones 80 OR GREATER Urine Occult Blood MOD Urine Nitrite NEG Urine Bilirubin NEG Urine Leukocyte Esterase NEG Urine WBC 0-2 Urine Squamous Epithelial > 8 Cells Urine Hyaline Casts 0-2 Microscopic Urinalysis Comment CULT NOT INDICATED Urine Opiates Screen NEG Urine Barbiturates Screen NEG Urine Amphetamines Screen NEG Urine Benzodiazepines Screen POS Urine Cocaine Screen NEG Urine Cannabinoids Screen NEG Lactic Acid Level 4.3 3.0 Date/Time Procedure Status Source Growth 06/24/16 23:55 Aerobic Blood Culture - Preliminary Resulted Blood Peripheral NO GROWTH IN 1 DAY 06/24/16 23:55 Anaerobic Blood Culture - Preliminary Resulted Blood Peripheral NO GROWTH IN 1 DAY Result Diagram: 06/25/16 0450 06/25/16 0450 Imaging Last Impressions Chest X-Ray 06/24/16 1933 Signed Impressions: Service Date/Time: June 20:14 - CONCLUSION: No acute disease. Manfred Zaidi MD FACR Assessment and Plan Problem List: (1) Dehydration ICD Code: E86.0 Status: Acute (2) Intractable nausea and vomiting ICD Code: R11.2 Status: Acute (3) Lactic acidosis ICD Code: E87.2 Status: Acute (4) Delirium tremens ICD Code: F10.231 Status: Acute (5) Hypoglycemia ICD Code: E16.2 Status: Acute (6) Hyperemesis ICD Code: R11.10 Status: Acute (7) Gastroparesis ICD Code: K31.84 Status: Acute (8) Anorexia nervosa with bulimia ICD Code: F50.02 Status: Acute Assessment and Plan Delirium tremens Lashawn Perez placed Continue IV lorazepam Currently unable to tolerate by mouth When able tolerate by mouth start by mouth Librium 25 mg every 6 hours scheduled Hyperemesis may be part of this Alcoholism Folic acid and thiamine Patient counseled to quit and she is trying to quit Hyperemesis Hypoglycemia Lactic acidosis Follow lactic level IV hydration with D5 normal saline Follow blood sugars Weaned from IV fluids when patient able to tolerate by mouth intake Anorexia/bulimia Follow-up patient's oral intake Gastroparesis Continue to treat nausea and add Reglan as a treatment Elevated LFTs Continue to monitor LFTs Etiology is likely secondary to alcohol use Code Status Full Code Physician Certification 2 Midnight Certification Type: Admission for Inpatient Services Order for Inpatient Services The services are ordered in accordance with Medicare regulations or non- Medicare payer requirements, as applicable. In the case of services not specified as inpatient-only, they are appropriately provided as inpatient services in accordance with the 2-midnight benchmark. Estimated LOS (days): 4 days is the estimated time the patient will need to remain in the hospital, assuming treatment plan goals are met and no additional complications. Post-Hospital Plan: Home Problem Qualifiers (1) Intractable nausea and vomiting: Qualified Code: R11.2 - Intractable vomiting with nausea, unspecified vomiting type Mehrdad Leary MD June 25, 2016 12:05
[2016-06-25] MEDS: METOCLOPRAMIDE HCL 10 MG/2 ML VIAL IV PUSH SCH ×2 (12:40→22:00)
[2016-06-25] MEDS: chlordiazePOXIDE 25 MG CAP PO SCH (18:31)
--- NOTE | 2016-06-25 21:30 | EKG ---
Date Performed: 06/24/2016 Time Performed: 19:54:02 PTAGE: 40 years EKG: Sinus tachycardia. Possible right atrial abnormality Inferior and ant/septal ST-T changes a re nonspecific Borderline ECG PREVIOUS TRACING : 05/21/2016 11.47 Compared to prior tracing no significant change DOCTOR: Wenceslao Sandy Interpretating Date/Time 06/25/2016 21:29:00
[2016-06-26] MEDS: chlordiazePOXIDE 25 MG CAP PO SCH ×4 (00:07→16:51)
[2016-06-26 03:00] VITALS: BP 142/95; PULSE 63; RESP 16; TEMP 95.4; O2SAT 98
[2016-06-26] MEDS: LORazepam 2 MG/ML VIAL IV PUSH PRN ×3 (04:16→16:51)
[2016-06-26] MEDS: ONDANSETRON HCL 4 MG/2 ML VIAL IVP PRN ×3 (05:03→18:38)
[2016-06-26] MEDS: DEXT 5%-NACL 0.45% 1000 ML INJ 1,000 ML IV SCH ×2 (05:04→12:29)
[2016-06-26] MEDS: METOCLOPRAMIDE HCL 10 MG/2 ML VIAL IV PUSH SCH ×2 (05:15→12:28)
[2016-06-26 08:00] VITALS: BP_SYST 130; BP_SYST 131; BP_DIAS 100; BP_DIAS 85; PULSE 67; RESP 19; TEMP 98.1; O2SAT 99
[2016-06-26] MEDS: THIAMINE HCL 100 MG TAB PO SCH (08:03)
[2016-06-26] MEDS: LORazepam 2 MG TAB PO PRN ×2 (08:03→13:46)
[2016-06-26] MEDS: SODIUM CHLORIDE 0.9% FLUSH 10 ML FLUSH IV FLUSH SCH ×2 (08:03→21:56)
[2016-06-26 08:37] LABS: HEMATOCRIT 34.9 % (35.0-46.0); MEAN CELL VOLUME 86.8 FL (80.0-100.0); MEAN CORPUSCULAR HEMOGLOBIN 28.4 PG (27.0-34.0); MEAN CORPUSCULAR HGB CONC 32.7 % (32.0-36.0); PLATELET COUNT 212 TH/MM3 (150-450); RED BLOOD COUNT 4.02 MIL/MM3 (4.00-5.30); RED CELL DISTRIBUTION WIDTH 15.4 % (11.6-17.2); REVIEW FLAG FINAL
[2016-06-26 09:04] LABS: BICARBONATE 27.3 MEQ/L (21.0-32.0); POTASSIUM 3.1 MEQ/L (3.5-5.1)
--- NOTE | 2016-06-26 11:41 | HHI.PR ---
Objective Vital Signs Date Time Temp Pulse Resp B/P Pulse Ox O2 Delivery O2 Flow Rate FiO2 06/26/16 08:00 98.1 67 19 131/100 99 130/85 06/26/16 03:00 95.4 63 16 142/95 98 06/25/16 23:00 66 06/25/16 23:00 98.4 60 14 149/92 97 06/25/16 19:00 98.6 78 16 168/107 98 06/25/16 16:00 98.7 79 17 137/98 97 06/25/16 15:34 66 06/25/16 12:00 98.7 98 20 145/97 97 I/O 06/25/16 06/25/16 06/25/16 06/26/16 06/26/16 06/26/16 07:00 15:00 23:00 07:00 15:00 23:00 Intake Total 540 ml 570 ml 100 ml 50 ml Output Total 401 ml 850 ml Balance 540 ml 169 ml -750 ml 50 ml Intake Oral 240 ml 570 ml 100 ml 50 ml IV Total 300 ml Output Urine Total 400 ml 850 ml Stool Total 0 ml Emesis 1 ml # Voids 1 # Bowel Movements 0 Result Diagram: 06/26/16 0814 06/26/16 0814 A/P Problem List: (1) Lactic acidosis ICD Code: E87.2 (2) Dehydration ICD Code: E86.0 (3) Anorexia nervosa with bulimia ICD Code: F50.02 (4) Gastroparesis ICD Code: K31.84 (5) Hyperemesis ICD Code: R11.10 (6) Hypoglycemia ICD Code: E16.2 (7) Delirium tremens ICD Code: F10.231 Assessment and Plan Assessment and Plan 40-year-old female. Admitted with delirium tremens and hyperemesis. Delirium tremens Improved with Librium. Continue IV lorazepam as needed per CIWA scale Nausea is improving Hyperemesis may be part of this Alcoholism Folic acid and thiamine Patient counseled to quit and she is trying to quit Hyperemesis Hypoglycemia Lactic acidosis Follow lactic level IV hydration with D5 normal saline Follow blood sugars Weaned from IV fluids when patient able to tolerate by mouth intake When necessary Mylanta Protonix IV Hypokalemia Replace as needed Hyponatremia continue normal saline IV hydration Anorexia/bulimia Follow-up patient's oral intake Gastroparesis Continue to treat nausea and add Reglan as a treatment Elevated LFTs Continue to monitor LFTs Etiology is likely secondary to alcohol use Code Status Full Code Mehrdad Leary MD June 26, 2016 11:41
[2016-06-26 12:00] VITALS: BP 131/91; PULSE 73; RESP 18; TEMP 97.6; O2SAT 99
[2016-06-26] MEDS: ALUMINUM/MAGNESIUM/SIMETH 30 ML CUP PO PRN ×2 (12:28→18:38)
[2016-06-26] MEDS: PANTOPRAZOLE SODIUM 40 MG VIAL IV PUSH SCH (12:28)
[2016-06-26] MEDS: POTASSIUM CHLOR 20 MEQ PREMIX 100 ML IV SCH ×2 (12:28→14:00)
[2016-06-26 16:00] VITALS: BP 148/80; PULSE 91; RESP 19; TEMP 97.3; O2SAT 100
[2016-06-26 20:00] VITALS: PULSE 62
[2016-06-26 20:25] VITALS: BP 142/95; PULSE 85; RESP 18; TEMP 98; O2SAT 98
[2016-06-26] MEDS: LORazepam 1 MG TAB PO PRN (20:31)
[2016-06-26] MEDS ORDERED: ACETAMINOPHEN 325 MG TAB PO ONE (21:45)
[2016-06-26] MEDS: FAT EMULSION 20% INJ 250 ML (@10 mls/hr) IV SCH (21:57)
[2016-06-26] MEDS: CLINIMIX E 4.25/5 2000 mL- >42 mls/hr IV SCH ×3 (21:57)
[2016-06-27] VITALS (7 sets, daily range): BP systolic 106–141; BP diastolic 70–98; PULSE 64–92; RESP 16–19; TEMP 96.6–98.1; O2SAT 95–100
[2016-06-27] MEDS: METOCLOPRAMIDE HCL 10 MG/2 ML VIAL IV PUSH SCH ×4 (00:19→21:48)
[2016-06-27] MEDS: PANTOPRAZOLE SODIUM 40 MG VIAL IV PUSH SCH ×3 (00:20→23:35)
[2016-06-27] MEDS: LORazepam 1 MG TAB PO PRN ×5 (00:20→23:35)
[2016-06-27] MEDS: chlordiazePOXIDE 25 MG CAP PO SCH ×5 (00:20→23:35)
[2016-06-27] MEDS: DEXT 5%-NACL 0.45% 1000 ML INJ 1,000 ML IV SCH ×2 (00:30→10:30)
[2016-06-27] MEDS: ALUMINUM/MAGNESIUM/SIMETH 30 ML CUP PO PRN ×2 (02:44→23:37)
[2016-06-27] MEDS: THIAMINE HCL 100 MG TAB PO SCH (09:20)
[2016-06-27] MEDS: SODIUM CHLORIDE 0.9% FLUSH 10 ML FLUSH IV FLUSH SCH ×2 (09:21→21:49)
[2016-06-27 09:44] LABS: HEMATOCRIT 30.7 % (35.0-46.0); MEAN CELL VOLUME 86.4 FL (80.0-100.0); MEAN CORPUSCULAR HEMOGLOBIN 28.6 PG (27.0-34.0); MEAN CORPUSCULAR HGB CONC 33.2 % (32.0-36.0); PLATELET COUNT 206 TH/MM3 (150-450); RED BLOOD COUNT 3.56 MIL/MM3 (4.00-5.30); REVIEW FLAG FINAL; WHITE BLOOD COUNT 6.8 TH/MM3 (4.0-11.0)
[2016-06-27 10:01] LABS: POTASSIUM 3.8 MEQ/L (3.5-5.1)
[2016-06-27 10:05] LABS: BICARBONATE 24.5 MEQ/L (21.0-32.0)
--- NOTE | 2016-06-27 10:33 | HHI.PR ---
Subjective Remarks Nausea. Tremors stabilized. She has complaints of headache and anxiety. No other new complaints. PPN started last night. Objective Vital Signs Date Time Temp Pulse Resp B/P Pulse Ox O2 Delivery O2 Flow Rate FiO2 06/27/16 08:06 67 06/27/16 08:00 97.1 66 18 123/98 100 06/27/16 04:25 98.0 70 16 135/80 95 06/27/16 00:25 98.1 64 16 137/82 97 06/26/16 20:25 98.0 85 18 142/95 98 06/26/16 20:00 62 06/26/16 16:00 97.3 91 19 148/80 100 06/26/16 12:00 97.6 73 18 131/91 99 Manual Cuff/Auscultation I/O 06/26/16 06/26/16 06/26/16 06/27/16 06/27/16 06/27/16 07:00 15:00 23:00 07:00 15:00 23:00 Intake Total 100 ml 700 ml 974 ml Output Total 850 ml Balance -750 ml 700 ml 974 ml Intake Oral 100 ml 700 ml IV Total 300 ml TPN/PPN 600 ml Lipid 74 ml Output Urine Total 850 ml # Voids 1 1 Result Diagram: 06/27/1690306/27/16903 Other Results GENERAL: NAD, A&Ox3, cachexia SKIN: Warm and dry. HEAD: Normocephalic. EYES: No scleral icterus. No injection or drainage. NECK: Supple, trachea midline. No JVD or lymphadenopathy. CARDIOVASCULAR: Regular rate and rhythm without murmurs, gallops, or rubs. RESPIRATORY: Breath sounds equal bilaterally. No accessory muscle use. GASTROINTESTINAL: Abdomen soft, non-tender, nondistended. MUSCULOSKELETAL: No cyanosis, or edema. Medications and IVs Administered Medications Medications (Trade) Dose Ordered Sig/Susanna Route PRN Reason Start Time Stop Time Status Last Admin Dose Admin Ondansetron HCl (Zofran Inj) 4 mg Q6H PRN IVP NAUSEA OR VOMITING 06/24/16 22:00 06/26/16 18:38 Thiamine HCl 100 mg 100 mg DAILY PO 06/25/16 09:00 06/27/16 09:20 Dextrose/Sodium Chloride (D5W-1/2 NS 1000 ml Inj) 1,000 ml @ 100 mls/hr Q10H IV 06/24/16 22:30 06/26/16 12:29 Sodium Chloride (NS Flush) 2 ml BID IV FLUSH 06/25/16 09:00 06/27/16 09:21 Lorazepam (Ativan) 1 mg Q4H PRN PO CIWA 8 - 10 06/25/16 09:00 06/27/16 05:24 Lorazepam (Ativan Inj) 1 mg Q4H PRN IV PUSH CIWA 8 - 10 06/25/16 09:00 06/26/16 16:51 Lorazepam (Ativan) 2 mg Q2H PRN PO CIWA 11-14 06/25/16 09:00 06/26/16 13:46 Lorazepam (Ativan Inj) 2 mg Q2H PRN IV PUSH CIWA 11-14 06/25/16 09:00 06/25/16 20:46 Lorazepam (Ativan Inj) 2 mg Q15M PRN IV PUSH CIWA > 20 06/25/16 09:00 06/25/16 14:43 Chlordiazepoxide (Librium) 25 mg Q6HR PO 06/25/16 18:00 06/27/16 05:24 Metoclopramide HCl (Reglan Inj) 5 mg Q8HR IV PUSH 06/25/16 14:00 06/27/16 05:24 Al Hydrox/Mg Hydrox/Simethicone (Mag-Al Plus Susp Liq) 30 ml Q6H PRN PO Dyspepsia 06/26/16 11:45 06/27/16 02:44 Pantoprazole Sodium 40 mg 40 mg Q12H IV PUSH 06/26/16 12:00 06/27/16 00:20 Multivitamins 10 ml/Folic Acid 1 mg/Amino Acids/ Electrolytes/ Dextrose 2,010.2 ml @ 83 mls/hr Q24H IV 06/26/16 20:00 06/26/16 21:57 Fat Emulsion Intravenous (Liposyn Iii 20% Inj) 250 ml @ 10 mls/hr Q24H IV 06/26/16 20:00 06/26/16 21:57 A/P Problem List: (1) Lactic acidosis ICD Code: E87.2 (2) Dehydration ICD Code: E86.0 (3) Anorexia nervosa with bulimia ICD Code: F50.02 (4) Gastroparesis ICD Code: K31.84 (5) Hyperemesis ICD Code: R11.10 (6) Hypoglycemia ICD Code: E16.2 (7) Delirium tremens ICD Code: F10.231 Assessment and Plan Assessment and Plan 40-year-old female. Admitted with delirium tremens and hyperemesis. Delirium tremens Improved with Librium. Continue IV lorazepam as needed per CIWA scale Nausea is improving Hyperemesis may be part of this Alcoholism Folic acid and thiamine Patient counseled to quit and she is trying to quit Hyperemesis Hypoglycemia Lactic acidosis Follow lactic level IV hydration with D5 normal saline Follow blood sugars Weaned from IV fluids when patient able to tolerate by mouth intake When necessary Mylanta Protonix IV Advance diet from clear liquids to pured diet Hypokalemia Replace as needed Hyponatremia This condition remains. continue IV hydration with sodium (PPN) Anorexia/bulimia Malnourishment Low BMI Poor oral intake before PPN started to prevent further weight loss Gastroparesis Continue to treat nausea and add Reglan as a treatment Elevated LFTs Continue to monitor LFTs Etiology is likely secondary to alcohol use Code Status Full Code Mehrdad Leary MD June 27, 2016 10:33
[2016-06-27] MEDS: ACETAMINOPHEN 325 MG TAB PO PRN (14:38)
[2016-06-27] MEDS: hydrOXYzine PAMOATE 25 MG CAP PO PRN (16:30)
[2016-06-27] MEDS: ONDANSETRON HCL 4 MG/2 ML VIAL IVP PRN (21:50)
[2016-06-27] MEDS: FAT EMULSION 20% INJ 250 ML (@10 mls/hr) IV SCH (21:50)
[2016-06-27] MEDS: CLINIMIX E 4.25/5 2000 mL- >42 mls/hr IV SCH ×3 (21:51)
[2016-06-27] MEDS: SODIUM CHLORIDE 0.9% FLUSH 10 ML FLUSH IV FLUSH PRN (23:36)
[2016-06-28] VITALS: BP 114/75; PULSE 81; RESP 19; TEMP 97.7; O2SAT 98
[2016-06-28 04:00] VITALS: BP 115/85; PULSE 86; RESP 19; TEMP 96.7; O2SAT 100
[2016-06-28] MEDS: ACETAMINOPHEN 325 MG TAB PO PRN ×2 (04:04→12:57)
[2016-06-28] MEDS: LORazepam 1 MG TAB PO PRN ×2 (04:04→20:53)
[2016-06-28 05:48] LABS: AUTOMATED NEUTROPHIL # 5.4 TH/MM3 (1.8-7.7); BASOPHIL # 0.1 TH/MM3 (0-0.2); BASOPHIL % 1.1 % (0.0-2.0); EOSINOPHIL # 0.5 TH/MM3 (0-0.4); EOSINOPHIL % 5.3 % (0.0-4.0); HEMATOCRIT 32.5 % (35.0-46.0); HEMO FLAGS DIFF FINAL; LYMPHOCYTE # 2.7 TH/MM3 (1.0-4.8); MEAN CELL VOLUME 88.2 FL (80.0-100.0); MEAN CORPUSCULAR HEMOGLOBIN 28.9 PG (27.0-34.0); MEAN CORPUSCULAR HGB CONC 32.8 % (32.0-36.0); MONO % 6.9 % (0.0-8.0); NEUT % 57.7 % (16.0-70.0); PLATELET COUNT 215 TH/MM3 (150-450); RED BLOOD COUNT 3.68 MIL/MM3 (4.00-5.30); RED CELL DISTRIBUTION WIDTH 15.3 % (11.6-17.2); WHITE BLOOD COUNT 9.3 TH/MM3 (4.0-11.0)
[2016-06-28] MEDS: chlordiazePOXIDE 25 MG CAP PO SCH (06:03)
[2016-06-28] MEDS: METOCLOPRAMIDE HCL 10 MG/2 ML VIAL IV PUSH SCH ×3 (06:04→20:53)
[2016-06-28] MEDS: SODIUM CHLORIDE 0.9% FLUSH 10 ML FLUSH IV FLUSH PRN (06:04)
[2016-06-28 06:13] LABS: CHLORIDE 99 MEQ/L (98-107); POTASSIUM 4.2 MEQ/L (3.5-5.1); SODIUM (NA) 135 MEQ/L (136-145)
[2016-06-28 06:17] LABS: ANION GAP 6 MEQ/L (5-15); APTT (PATIENT) 28.4 SEC (24.3-30.1); BICARBONATE 30.4 MEQ/L (21.0-32.0); MAGNESIUM 2.2 MG/DL (1.5-2.5)
[2016-06-28 06:18] LABS: BLOOD UREA NITROGEN 13 MG/DL (7-18)
[2016-06-28 06:20] LABS: ALT (GPT) 30 U/L (10-53); AST (GOT) 16 U/L (15-37)
[2016-06-28 06:21] LABS: GLOMERULAR FILTRATION RATE 95 ML/MIN (>89)
[2016-06-28 06:22] LABS: TOTAL BILIRUBIN ADULT 0.4 MG/DL (0.2-1.0)
[2016-06-28 06:23] LABS: ALKALINE PHOSPHATASE 64 U/L (45-117)
[2016-06-28 08:00] VITALS: BP 119/91; PULSE 80; PULSE 83; RESP 17; TEMP 96.4; O2SAT 99
[2016-06-28] MEDS: SODIUM CHLORIDE 0.9% FLUSH 10 ML FLUSH IV FLUSH SCH ×2 (09:00→20:54)
--- NOTE | 2016-06-28 09:09 | HHI.PR ---
Subjective Remarks No tremors today. Nausea and esophagitis are improving. She is ready for a stepson in her Librium and resumption of her normal diet. Hyponatremia remains but is mild. No other new complaints. Objective Vital Signs Date Time Temp Pulse Resp B/P Pulse Ox O2 Delivery O2 Flow Rate FiO2 06/28/16 04:00 96.7 86 19 115/85 100 06/28/16 00:00 97.7 81 19 114/75 98 06/27/16 20:00 72 06/27/16 20:00 96.6 88 19 106/70 98 06/27/16 16:00 97.6 92 18 110/75 99 06/27/16 15:42 12 06/27/16 12:00 97.8 85 19 141/89 98 I/O 06/27/16 06/27/16 06/27/16 06/28/16 06/28/16 06/28/16 07:00 15:00 23:00 07:00 15:00 23:00 Intake Total 974 ml 1932 ml 1302 ml Balance 974 ml 1932 ml 1302 ml Intake Oral 640 ml 650 ml IV Total 300 ml TPN/PPN 600 ml 1146 ml 569 ml Lipid 74 ml 146 ml 83 ml # Voids 1 11 4 Result Diagram: 06/28/16 0515 06/28/1615 Objective Remarks GENERAL: NAD, A&Ox3, cachexia SKIN: Warm and dry. HEAD: Normocephalic. EYES: No scleral icterus. No injection or drainage. NECK: Supple, trachea midline. No JVD or lymphadenopathy. CARDIOVASCULAR: Regular rate and rhythm without murmurs, gallops, or rubs. RESPIRATORY: Breath sounds equal bilaterally. No accessory muscle use. GASTROINTESTINAL: Abdomen soft, non-tender, nondistended. MUSCULOSKELETAL: No cyanosis, or edema. A/P Problem List: (1) Lactic acidosis ICD Code: E87.2 (2) Dehydration ICD Code: E86.0 (3) Anorexia nervosa with bulimia ICD Code: F50.02 (4) Gastroparesis ICD Code: K31.84 (5) Hyperemesis ICD Code: R11.10 (6) Hypoglycemia ICD Code: E16.2 (7) Delirium tremens ICD Code: F10.231 Assessment and Plan Assessment and Plan 40-year-old female. Admitted with delirium tremens and hyperemesis. Return to normal diet today. Weaning down Librium, delirium tremens is currently controlled. Resume all by mouth meds. Delirium tremens Improved with Librium. Continue IV lorazepam as needed per CIWA scale Nausea is improving Hyperemesis may be part of this Alcoholism Folic acid and thiamine Patient counseled to quit and she is trying to quit Hyperemesis Hypoglycemia Lactic acidosis Follow lactic level IV hydration with D5 normal saline Follow blood sugars Weaned from IV fluids when patient able to tolerate by mouth intake When necessary Mylanta Protonix IV Advance diet from clear liquids to pured diet Hypokalemia Replace as needed Hyponatremia This condition remains. continue IV hydration with sodium (PPN) Anorexia/bulimia Malnourishment Low BMI Poor oral intake before PPN started to prevent further weight loss Gastroparesis Continue to treat nausea and add Reglan as a treatment Elevated LFTs Continue to monitor LFTs Etiology is likely secondary to alcohol use Code Status Full Code Mehrdad Leary MD June 28, 2016 09:09
[2016-06-28] MEDS: THIAMINE HCL 100 MG TAB PO SCH ×2 (09:15→09:51)
[2016-06-28 12:00] VITALS: BP 110/73; PULSE 88; RESP 19; TEMP 96.3; O2SAT 100
[2016-06-28] MEDS: GABAPENTIN 100 MG CAP PO SCH ×2 (12:57→18:02)
[2016-06-28] MEDS: PANTOPRAZOLE SODIUM 40 MG VIAL IV PUSH SCH (13:00)
[2016-06-28 16:00] VITALS: BP 92/64; PULSE 90; RESP 19; TEMP 96.1; O2SAT 99
[2016-06-28] MEDS: ONDANSETRON HCL 4 MG/2 ML VIAL IVP PRN (18:04)
[2016-06-28 20:00] VITALS: BP 112/81; PULSE 86; RESP 18; TEMP 97.6; O2SAT 100
[2016-06-28] MEDS: traZODone HCL 100 MG TAB PO SCH (20:53)
[2016-06-29] VITALS (8 sets, daily range): BP systolic 80–118; BP diastolic 52–72; PULSE 64–84; RESP 14–19; TEMP 95.2–97.6; O2SAT 93–100
[2016-06-29] MEDS: LORazepam 1 MG TAB PO PRN ×2 (00:40→11:17)
[2016-06-29] MEDS: METOCLOPRAMIDE HCL 10 MG/2 ML VIAL IV PUSH SCH ×3 (05:59→21:19)
[2016-06-29] MEDS: risperiDONE 0.25 MG TAB PO SCH (08:19)
[2016-06-29] MEDS: GABAPENTIN 100 MG CAP PO SCH ×3 (08:19→17:21)
[2016-06-29] MEDS: MULTIVITAMINS/MINERALS THERAPEUTIC TAB PO SCH (08:19)
[2016-06-29] MEDS: FOLIC ACID 1 MG TAB PO SCH (08:19)
[2016-06-29] MEDS: FLUoxetine HCL 20 MG CAP PO SCH (08:19)
[2016-06-29] MEDS: SODIUM CHLORIDE 0.9% FLUSH 10 ML FLUSH IV FLUSH SCH (08:21)
[2016-06-29] MEDS: THIAMINE HCL 100 MG TAB PO SCH ×2 (08:21)
[2016-06-29] MEDS ORDERED: TIOTROPIUM OLODATEROL INH SCH (09:00)
--- NOTE | 2016-06-29 11:14 | HHI.PR ---
Subjective Remarks Tolerating PO intake. No nausea today. Tremors are minor with Librium wean from 25mg to 10mg. No new complaints. Objective Vital Signs Date Time Temp Pulse Resp B/P Pulse Ox O2 Delivery O2 Flow Rate FiO2 06/29/16 08:00 96.6 79 17 118/72 97 06/29/16 04:00 97.6 84 14 80/61 93 06/29/16 00:43 97.6 66 14 88/60 100 06/28/16 20:00 97.6 86 18 112/81 100 06/28/16 20:00 86 06/28/16 16:00 96.1 90 19 92/64 99 06/28/16 13:57 16 06/28/16 12:00 96.3 88 19 110/73 100 I/O 06/28/16 06/28/16 06/28/16 06/29/16 06/29/16 06/29/16 07:00 15:00 23:00 07:00 15:00 23:00 Intake Total 1302 ml 360 ml 360 ml Balance 1302 ml 360 ml 360 ml Intake Oral 650 ml 360 ml 360 ml TPN/PPN 569 ml Lipid 83 ml # Voids 4 2 2 Result Diagram: 06/28/1651406/28/16514 Objective Remarks GENERAL: NAD, A&Ox3, cachexia SKIN: Warm and dry. HEAD: Normocephalic. EYES: No scleral icterus. No injection or drainage. NECK: Supple, trachea midline. No JVD or lymphadenopathy. CARDIOVASCULAR: Regular rate and rhythm without murmurs, gallops, or rubs. RESPIRATORY: Breath sounds equal bilaterally. No accessory muscle use. GASTROINTESTINAL: Abdomen soft, non-tender, nondistended. MUSCULOSKELETAL: No cyanosis, or edema. A/P Problem List: (1) Lactic acidosis ICD Code: E87.2 (2) Dehydration ICD Code: E86.0 (3) Anorexia nervosa with bulimia ICD Code: F50.02 (4) Gastroparesis ICD Code: K31.84 (5) Hyperemesis ICD Code: R11.10 (6) Hypoglycemia ICD Code: E16.2 (7) Delirium tremens ICD Code: F10.231 Assessment and Plan Assessment and Plan 40-year-old female. Admitted with delirium tremens and hyperemesis. Wean librium to 5mg and follow for any recurrence of DTs or nausea/vomiting. Delirium tremens Improved with Librium. Wean librium as tolerated. Continue IV lorazepam as needed per CIWA scale Nausea is improving Hyperemesis may be part of this Alcoholism Folic acid and thiamine Patient counseled to quit and she is trying to quit Hyperemesis Hypoglycemia Lactic acidosis Resolved Hypokalemia Resolved Hyponatremia Near normalized No need for follow further Anorexia/bulimia Malnourishment Low BMI Tolerating PO intake now PPN stopped Gastroparesis Continue to treat nausea and add Reglan as a treatment Elevated LFTs Improved No further monitoring Code Status Full Code Mehrdad Leary MD June 29, 2016 11:09 am
[2016-06-29] MEDS: PANTOPRAZOLE SODIUM 40 MG VIAL IV PUSH SCH ×3 (11:35→23:54)
[2016-06-29] MEDS: ONDANSETRON HCL 4 MG/2 ML VIAL IVP PRN (14:51)
[2016-06-29] MEDS ORDERED: SODIUM CHLOR 0.9% 1000 ML INJ 1,000 ML IV ONE (16:45)
[2016-06-29] MEDS ORDERED: MIDODRINE 5 MG TAB PO ONE (18:45)
[2016-06-29] MEDS: hydrOXYzine PAMOATE 25 MG CAP PO PRN (18:47)
[2016-06-29] MEDS: ACETAMINOPHEN 325 MG TAB PO PRN (21:18)
[2016-06-29] MEDS: traZODone HCL 100 MG TAB PO SCH (21:18)
[2016-06-30] VITALS: BP 88/40; PULSE 73; RESP 14; TEMP 96.8; O2SAT 95
[2016-06-30] MEDS ORDERED: SODIUM CHLOR 0.9% 1000 ML INJ 1,000 ML IV ONE ×2 (01:00→02:45)
[2016-06-30] MEDS ORDERED: SODIUM CHLORID 0.9% 500 ML INJ 500 ML IV ONE (01:00)
[2016-06-30 02:30] VITALS: BP_SYST 73; BP_SYST 84; BP_DIAS 40; BP_DIAS 46; PULSE 66; RESP 16; TEMP 96.4; O2SAT 97
[2016-06-30 03:13] LABS: AUTOMATED NEUTROPHIL # 1.8 TH/MM3 (1.8-7.7); BASOPHIL # 0.1 TH/MM3 (0-0.2); BASOPHIL % 1.2 % (0.0-2.0); EOSINOPHIL # 0.3 TH/MM3 (0-0.4); EOSINOPHIL % 5.6 % (0.0-4.0); HEMATOCRIT 26.1 % (35.0-46.0); HEMO FLAGS DIFF FINAL; LYMPH % 50.3 % (9.0-44.0); LYMPHOCYTE # 2.7 TH/MM3 (1.0-4.8); MEAN CELL VOLUME 88.5 FL (80.0-100.0); MEAN CORPUSCULAR HEMOGLOBIN 28.9 PG (27.0-34.0); MEAN CORPUSCULAR HGB CONC 32.7 % (32.0-36.0); MONO % 9.9 % (0.0-8.0); PLATELET COUNT 263 TH/MM3 (150-450); RED BLOOD COUNT 2.94 MIL/MM3 (4.00-5.30); RED CELL DISTRIBUTION WIDTH 15.4 % (11.6-17.2); WHITE BLOOD COUNT 5.4 TH/MM3 (4.0-11.0)
[2016-06-30 04:17] LABS: POTASSIUM 3.8 MEQ/L (3.5-5.1)
[2016-06-30 04:18] VITALS: BP_SYST 116; BP_DIAS 64; BP_DIAS 69; PULSE 74; RESP 16; TEMP 95.8; O2SAT 99
[2016-06-30] MEDS: METOCLOPRAMIDE HCL 10 MG/2 ML VIAL IV PUSH SCH (06:21)
[2016-06-30] MEDS: ACETAMINOPHEN 325 MG TAB PO PRN (06:21)
[2016-06-30] MEDS: GABAPENTIN 100 MG CAP PO SCH ×2 (08:25→13:19)
[2016-06-30] MEDS: risperiDONE 0.25 MG TAB PO SCH (08:25)
[2016-06-30] MEDS: FLUoxetine HCL 20 MG CAP PO SCH (08:25)
[2016-06-30] MEDS: MULTIVITAMINS/MINERALS THERAPEUTIC TAB PO SCH (08:25)
[2016-06-30] MEDS: FOLIC ACID 1 MG TAB PO SCH (08:25)
[2016-06-30] MEDS: THIAMINE HCL 100 MG TAB PO SCH ×2 (08:26→08:27)
[2016-06-30 08:35] VITALS: BP 93/59; PULSE 63; RESP 18; TEMP 97.5; O2SAT 99
[2016-06-30 09:22] VITALS: PULSE 63
[2016-06-30 12:28] VITALS: BP 93/64; PULSE 64; RESP 19; TEMP 98.7; O2SAT 99
[2016-06-30] MEDS ORDERED: ALPR.25 PO (14:10)
--- NOTE | 2016-06-30 14:15 | HHI.DS ---
Discharge Summary Admission Date June 25, 2016 at 11:57 am Discharge Date: June 30, 2016 Admitting Diagnosis intractable vomiting; alcoholism; alcohol mood disorder (1) Dehydration ICD Code: E86.0 Diagnosis: Principal (2) Intractable nausea and vomiting ICD Code: R11.2 Diagnosis: Principal (3) Lactic acidosis ICD Code: E87.2 Diagnosis: Principal (4) Delirium tremens ICD Code: F10.231 Diagnosis: Principal (5) Hypoglycemia ICD Code: E16.2 Diagnosis: Principal (6) Hyperemesis ICD Code: R11.10 Diagnosis: Principal (7) Gastroparesis ICD Code: K31.84 Diagnosis: Principal (8) Anorexia nervosa with bulimia ICD Code: F50.02 Diagnosis: Secondary Procedures none Brief History - From Admission Mrs. Orellana is a 40-year-old female. She has a history of alcohol abuse. Yesterday she started having hyperemesis in the afternoon. She arrived to the ER with dehydration and hyperemesis. She was also delirium tremens. This has worsened through today. LFTs were elevated and have improved her today. LFT elevation is likely secondary to alcohol abuse. Her lactic acid level was also significantly elevated yesterday and though it is improved on a second recheck has not normalized. The lactic acidosis is secondary to alcohol abuse and dehydration with hyperemesis. Additionally she had hypoglycemia and last night was started on the 5% dextrose IV solution which has normalized her blood sugars. Presently she is in delirium tremens with significant amount of symptoms including tremors and hyperemesis as well as low-grade fever. She is on a [place] scale currently but unable to tolerate Librium thus far. Gastroparesis is present at baseline and complicates her hyperemesis picture. Additionally she has anorexia/bulimia at baseline. She is not a smoker and does not do other drugs. No other complaints. CBC/BMP: 06/30/16 0250 06/30/16 0250 Significant Findings Laboratory Tests Test 06/28/16 06/30/16 05:15 02:50 Red Blood Count 3.68 MIL/MM3 2.94 MIL/MM3 (4.00-5.30) (4.00-5.30) Hemoglobin 10.6 GM/DL 8.5 GM/DL (11.6-15.3) (11.6-15.3) Hematocrit 32.5 % 26.1 % (35.0-46.0) (35.0-46.0) Eosinophils (%) (Auto) 5.3 % (0.0-4.0) 5.6 % (0.0-4.0) Eosinophils # (Auto) 0.5 TH/MM3 (0-0.4) Sodium Level 135 MEQ/L (136-145) Calcium Level 8.4 MG/DL 7.5 MG/DL (8.5-10.1) (8.5-10.1) Total Protein 6.0 GM/DL (6.4-8.2) Albumin 2.9 GM/DL (3.4-5.0) Lymphocytes (%) (Auto) 50.3 % (9.0-44.0) Monocytes (%) (Auto) 9.9 % (0.0-8.0) Blood Urea Nitrogen 5 MG/DL (7-18) PE at Discharge GENERAL: NAD, A&Ox3 SKIN: Warm and dry. HEAD: Normocephalic. EYES: No scleral icterus. No injection or drainage. NECK: Supple, trachea midline. No JVD or lymphadenopathy. CARDIOVASCULAR: Regular rate and rhythm without murmurs, gallops, or rubs. RESPIRATORY: Breath sounds equal bilaterally. No accessory muscle use. GASTROINTESTINAL: Abdomen soft, non-tender, nondistended. MUSCULOSKELETAL: No cyanosis, or edema. Hospital Course Mrs. Orellana is a 40-year-old female. She was admitted secondary to delirium tremens and had symptoms of irretractable nausea and vomiting, tremors, dehydration, exacerbation of gastroparesis, hypoglycemia, and lactic acidosis. She responded within 48 hours to Librium once she was able to take by mouth. She has been weaned down on this during her stay and today she is weaned off of it. I've monitored her for 6 hours off of Librium and she's having no evidence of DTs. She is now able to tolerate by mouth. Gastroparesis exacerbation has resolved. She is no longer dehydrated. Her lactic acidosis resolved. No further episodes of hypoglycemia. No further episodes of hypotension. She is medically stable for discharge today. She has plans to follow up with the rehabilitation center for alcohol. She'll discharge to home with her boyfriend. Medically stable for discharge. She is given 6 pills of Xanax should she have difficulty sleeping or anxiety in the next 48 hours. Pt Condition on Discharge: Stable Discharge Disposition: Discharge Home Discharge Time: <= 30 minutes Discharge Instructions DIET: Follow Instructions for: As Tolerated, No Restrictions Activities you can perform: Regular-No Restrictions Follow up Referrals: PCP Follow-up - 2 Weeks New Medications: Alprazolam (Xanax) 0.25 Mg Tab 0.25 MG PO Q8H PRN ANXIETY #6 Ref 0 TAB Continued Medications: Fluoxetine (Prozac) 20 Mg Cap 60 MG PO DAILY #30 Ref 0 CAP Gabapentin (Gabapentin) 100 Mg Cap 100 MG PO TID #90 Ref 0 CAP Ipratropium-Albuterol Neb (Duoneb) 0.5-2.5 Mg/3 Ml Neb 1 NEBULE INH PRN WHEEZING #120 Ref 0 NEBULE Multiple Vitamins W/ Minerals (Thera M Plus) 1 Tab 1 TAB PO DAILY Nutritional Supplement #30 TAB Ondansetron (Zofran) 4 Mg Tab 4 MG PO Q8HR PRN NAUSEA OR VOMITING #15 Ref 0 TAB Pantoprazole (Pantoprazole) 40 Mg Tab 40 MG PO DAILY GIpro #30 Ref 0 TAB Risperidone (Risperdal) 0.5 Mg Tab 0.5 MG PO DAILY #30 Ref 0 TAB Tiotropium-Olodaterol Inh (Stiolto Respimat Inh) 2.5-2.5 Mcg/Act Aero 2 PUFF INH DAILY COPD #1 Ref 0 INHALER Trazodone (Trazodone) 100 Mg Tab 200 MG PO HS Control Depression #30 Ref 0 TAB Discontinued Medications: Chlordiazepoxide (Chlordiazepoxide) 25 Mg Cap 25 MG PO TID Take THREE Times daily for 3 Days, then TWICE daily for 3 days, then ONCE a day for 3 Days. PRN Anxiety #18 Ref 0 CAP Folic Acid (Folate) 1 Mg Tab 1 MG PO DAILY Nutritional Supplement #5 TAB Hydrocodone-Acetaminophen ([place]) 7.5-325 mg Tab 1 TAB PO Q8HR PRN PAIN Ref 0 TAB Polyethylene Glycol 3350 Powder (Miralax Powder) 17 Gm Powd 17 GM PO BID Mix and dissolve one measuring cap-ful (17 grams) in water or juice. Constipation #1 Ref 0 BOTTLE Thiamine (Vitamin B-1) 100 Mg Tab 100 MG PO DAILY Nutritional Supplement #5 TAB Mehrdad Leary MD June 30, 2016 2:15 pm
[2016-07-01] MEDS ORDERED: TRAZ300T2 PO (07:53)
== END 2016-06-30 15:13 | disposition home or self-care (01) | DRG 897 ==
LOC: PHED 19:06 → PHEDA 21:52 → PH5A 06-25 00:50 → OBSVTOIN 06-25 11:57
PROVIDERS: ADMIT Hospitalist; ATTEND Hospitalist
DX: F10.231 Alcohol dependence with withdrawal delirium (principal); E87.2 Acidosis; F50.00 Anorexia nervosa, unspecified; K31.84 Gastroparesis; F50.2 Bulimia nervosa; E87.1 Hypo-osmolality and hyponatremia; Y90.8 Blood alcohol level of 240 mg/100 ml or more; E16.2 Hypoglycemia, unspecified; E86.0 Dehydration; F41.9 Anxiety disorder, unspecified; E87.6 Hypokalemia
CPT/HCPCS: 71010; 76937; 80048; 80053; 80307; 81001; 82947; 82948; 83605; 83735; 84100; 84478; 84703; 85025; 85027; 85730; 87040; 93005; 96361; 96365; 96374; 96375; C9113; J2060; J2405; J2765; J3411; J3480; J7030; J7040; Q0177

== ENCOUNTER 2016-07-01 07:34 | Emergency (ER) | payer OTHER ==
[~2016-07-01] VITALS: Ht 157.5 cm; Wt 85.0 kg
[~2016-07-01 07:34] MED LIST changes: +ALPR.25 PO; -CHLO25CA2 PO; -FOLI1TAB4 PO; -HYDR-3288 PO; -MIRA33504 PO; -VITA100T2 PO
[2016-07-01 07:39] VITALS: BP 105/74; PULSE 113; RESP 16; TEMP 100.5; O2SAT 100
[2016-07-01 07:46] VITALS: BP 104/74; PULSE 112; RESP 18; TEMP 101.3; O2SAT 96
[2016-07-01] MEDS ORDERED: SODIUM CHLOR 0.9% 1000 ML INJ 1,000 ML IV ONE (07:52)
[2016-07-01] MEDS ORDERED: TRAZ300T2 PO (07:53)
[2016-07-01] MEDS ORDERED: ACETAMINOPHEN 325 MG TAB PO ONE (08:00)
[2016-07-01 08:29] LABS: BLOOD, URINE NEG (NEG); GLUCOSE,URINE NEG (NEG); KETONE, URINE NEG (NEG); NITRITE,URINE NEG (NEG); PH, URINE 5.5 (5.0-8.5)
--- NOTE | 2016-07-01 08:29 | PD ---
HPI Chief Complaint: Fever Time Seen by Provider: 07:52 Travel History International Travel<30 days: No Contact w/Intl Traveler<30days: No Traveled to known affect area: No History of Present Illness HPI 40-year-old female patient recently discharged on the hospital for alcohol withdrawals, presents to the ER today because she states that she has had several days' history of fevers, chills, body aches. She states the fever was 103 last night. She denies coughing, shortness of breath, vomiting, abdominal pains, diarrhea, or any other symptoms. She denies any IV drug use. Modifying Factors: None Associated Signs & Symptoms: Fevers, chills, myalgias Risk Factors: None PFSH Past Medical History Hx Anticoagulant Therapy: No Anemia: Yes Arthritis: Yes Asthma: No Autoimmune Disease: No Blood Disorders: No Bipolar Disorder: Yes Anxiety: Yes Depression: Yes Heart Rhythm Problems: No Cancer: Yes ( melanoma abdomen) Cardiovascular Problems: No High Cholesterol: No Chemotherapy: No Chest Pain: No Congestive Heart Failure: No Cirrhosis: Yes (DX WITH FATTY LIVER 10-15 YEARS AGO) COPD: No Cerebrovascular Accident: No Developmental Delay: No Diabetes: No Diminished Hearing: No Endocrine: No Gastrointestinal Disorders: Yes (DELAYED GASTRIC EMPTYING, ) GERD: Yes Genitourinary: No Hiatal Hernia: Yes Hypertension: No Immune Disorder: No Implanted Vascular Access Dvce: No Insomnia: Yes Kidney Stones: No Musculoskeletal: Yes (hurt back 1 month ago) Neurologic: Yes Psychiatric: Yes Reproductive: No Respiratory: Yes (pneumonia in dec) Integumentary: Yes (07/2010- MRSA TO BILATERAL ARMS) Immunizations Current: Yes Migraines: Yes Myocardial Infarction: No Pancreatitis: Yes Radiation Therapy: No Renal Failure: No Seizures: Yes (last night questionable ) Sleep Apnea: No Thyroid Disease: No Ulcer: Yes ?: Not LMP: IUD : 3 Para: 1 Miscarriage: 1 : 1 Past Surgical History Abdominal Surgery: No AICD: No Arteriovenous Shunt: No Cardiac Surgery: No Ear Surgery: No Endocrine Surgery: No Eye Surgery: Yes (PT STATES SHE HAD EYE SURGERY FOR "LAZY EYE" WHEN SHE WAS 3 YEARS OLD.) Genitourinary Surgery: No Gynecologic Surgery: No Hysterectomy: No Insulin Pump: No Joint Replacement: No Neurologic Surgery: No Oral Surgery: No Pacemaker: No Thoracic Surgery: No Social History Alcohol Use: Yes (CHRONIC ALCOHOLIC; just detoxed ) Tobacco Use: Yes Substance Use: No Allergies-Medications (Allergen,Severity, Reaction): Coded Allergies: [place] (Verified Allergy, Severe, Seizures, 07/01/16) Morphine (Verified Adverse Reaction, Severe, Hives, 07/01/16) *MDRO Multi-Drug Resistant Organism (Verified Adverse Reaction, Unknown, Cleared 01/12/16, 07/01/16) MRSA (skin) - 07/2010 MRSA PCR Screens NEGATIVE - 12/10/15 & 01/12/16 Cleared per Infection Control Reported Meds & Prescriptions Reported Meds & Active Scripts Active Xanax (Alprazolam) 0.25 Mg Tab 0.25 Mg PO Q8H PRN Zofran (Ondansetron HCl) 4 Mg Tab 4 Mg PO Q8HR PRN Reported Trazodone (Trazodone HCl) 300 Mg Tab 200 Mg PO HS Stiolto Respimat Inh (Tiotropium-Olodaterol Inh) 2.5-2.5 Mcg/Act Aero 2 Puff INH DAILY Duoneb (Ipratropium-Albuterol Neb) 0.5-2.5 Mg/3 Ml Neb 1 Nebule INH PRN Gabapentin 100 Mg Cap 100 Mg PO TID Risperdal (Risperidone) 0.5 Mg Tab 0.5 Mg PO DAILY Prozac (Fluoxetine HCl) 20 Mg Cap 60 Mg PO DAILY Review of Systems Except as stated in HPI: all other systems reviewed are Neg Physical Exam Narrative GENERAL: Well-developed thin middle age white female patient in mild distress. Awake and oriented 3. SKIN: Focused skin assessment warm/dry. HEAD: Atraumatic. Normocephalic. EYES: Pupils equal and round. No scleral icterus. No injection or drainage. ENT: No nasal bleeding or discharge. Mucous membranes pink and moist. NECK: Trachea midline. No JVD. CARDIOVASCULAR: Regular rate and rhythm. No murmur appreciated. RESPIRATORY: No accessory muscle use. Clear to auscultation. Breath sounds equal bilaterally. GASTROINTESTINAL: Abdomen soft, non-tender, nondistended. Hepatic and splenic margins not palpable. MUSCULOSKELETAL: No obvious deformities. No clubbing. No cyanosis. No edema. NEUROLOGICAL: Awake and alert. No obvious cranial nerve deficits. Motor grossly within normal limits. Normal speech. PSYCHIATRIC: Appropriate mood and affect; insight and judgment normal. Data Data Last Documented VS Vital Signs Date Time Temp Pulse Resp B/P Pulse Ox O2 Delivery O2 Flow Rate FiO2 07/01/16 09:20 99.5 97 16 103/61 98 Room Air Orders Complete Blood Count With Diff (07/01/16 07:52) Comprehensive Metabolic Panel (07/01/16 07:52) Lactic Acid Sepsis Protocol (07/01/16 07:52) Urinalysis - C+S If Indicated (07/01/16 07:52) Influenzae A/B Antigen (07/01/16 07:52) Blood Culture (07/01/16 07:52) Chest, Single Ap (07/01/16 07:52) Blood Glucose (07/01/16 07:52) Ecg Monitoring (07/01/16 07:52) Iv Access Insert/Monitor (07/01/16 07:52) Oximetry (07/01/16 07:52) Oxygen Administration (07/01/16 07:52) Acetaminophen (Tylenol) (07/01/16 08:00) Sodium Chlor 0.9% 1000 Ml Inj (Ns 1000 M (07/01/16 07:52) Labs Laboratory Tests Test 07/01/16 07/01/16 07/01/16 08:05 08:35 08:40 Urine Collection Type CLEAN CATCH Urine Color YELLOW Urine Turbidity CLEAR Urine pH 5.5 Urine Specific [place] 1.012 Urine Protein NEG mg/dL Urine Glucose (UA) NEG mg/dL Urine Ketones NEG mg/dL Urine Occult Blood NEG Urine Nitrite NEG Urine Bilirubin NEG Urine Leukocyte Esterase NEG Urine RBC 0-3 /hpf Urine Squamous Epithelial > 8 /hpf Cells Urine Amorphous Sediment Urine Bacteria FEW /hpf Microscopic Urinalysis Comment CULT NOT INDICATED Urine Collection Time 0805 White Blood Count 11.4 TH/MM3 Red Blood Count 3.53 MIL/MM3 Hemoglobin 10.0 GM/DL Hematocrit 31.1 % Mean Corpuscular Volume 88.2 FL Mean Corpuscular Hemoglobin 28.4 PG Mean Corpuscular Hemoglobin 32.2 % Concent Red Cell Distribution Width 15.0 % Platelet Count 401 TH/MM3 Mean Platelet Volume 7.2 FL Neutrophils (%) (Auto) 89.6 % Lymphocytes (%) (Auto) 4.4 % Monocytes (%) (Auto) 3.9 % Eosinophils (%) (Auto) 1.4 % Basophils (%) (Auto) 0.7 % Neutrophils # (Auto) 10.2 TH/MM3 Lymphocytes # (Auto) 0.5 TH/MM3 Monocytes # (Auto) 0.4 TH/MM3 Eosinophils # (Auto) 0.2 TH/MM3 Basophils # (Auto) 0.1 TH/MM3 CBC Comment DIFF FINAL Differential Comment Sodium Level 139 MEQ/L Potassium Level 3.9 MEQ/L Chloride Level 100 MEQ/L Carbon Dioxide Level 30.5 MEQ/L Anion Gap 9 MEQ/L Blood Urea Nitrogen 3 MG/DL Creatinine 0.90 MG/DL Estimat Glomerular Filtration 69 ML/MIN Rate Random Glucose 114 MG/DL Calcium Level 8.5 MG/DL Total Bilirubin 0.2 MG/DL Aspartate Amino Transf 24 U/L (AST/SGOT) Alanine Aminotransferase 29 U/L (ALT/SGPT) Alkaline Phosphatase 63 U/L Total Protein 6.2 GM/DL Albumin 3.0 GM/DL Lactic Acid Level 1.6 mmol/L MDM Medical Decision Making Medical Screen Exam Complete: Yes Emergency Medical Condition: Yes Medical Record Reviewed: Yes Interpretation(s) Laboratory Tests Test 07/01/16 07/01/16 08:05 08:35 Urine Squamous Epithelial > 8 /hpf (0-5) Cells Urine Bacteria FEW /hpf (NONE) White Blood Count 11.4 TH/MM3 (4.0-11.0) Red Blood Count 3.53 MIL/MM3 (4.00-5.30) Hemoglobin 10.0 GM/DL (11.6-15.3) Hematocrit 31.1 % (35.0-46.0) Neutrophils (%) (Auto) 89.6 % (16.0-70.0) Lymphocytes (%) (Auto) 4.4 % (9.0-44.0) Neutrophils # (Auto) 10.2 TH/MM3 (1.8-7.7) Lymphocytes # (Auto) 0.5 TH/MM3 (1.0-4.8) Blood Urea Nitrogen 3 MG/DL (7-18) Estimat Glomerular Filtration 69 ML/MIN (>89) Rate Random Glucose 114 MG/DL (74-106) Total Protein 6.2 GM/DL (6.4-8.2) Albumin 3.0 GM/DL (3.4-5.0) Last 24 hours Impressions Chest X-Ray 07/01/16 0752 Signed Impressions: Service Date/Time: , July 01, 2016 08:13 - CONCLUSION: No acute disease. No significant change has occurred. Rio Yost MD Differential Diagnosis Fevers, chills, myalgiainfluenza versus viral syndrome versus sepsis versus UTI versus pneumonia Narrative Course Lab work shows mild leukocytosis with no significant lactate elevation. She has no obvious sources. No meningeal signs. Denies any IV drug use. She was recently in the hospital. It is quite possible that she may have an underlying viral syndrome but sepsis cannot be ruled out in this case. I have offered to admit the patient to the hospital versus very close outpatient follow-up. At this point, patient states that she was just in the hospital and would rather follow-up as an outpatient with her primary care physician. She should return for any worsening in symptoms as needed. The plan has discussed with her and she states understanding. Diagnosis Primary Impression: Fever Additional Instructions: Return for any worsening in fevers, fatigue, new symptoms, and as needed. Follow-up closely with your primary care physician for culture results. Disposition: 01 DISCHARGE HOME Condition: Stable Eliana Puente MD July 01, 2016 08:28
[2016-07-01 08:31] LABS: METHOD OF COLLECTION CLEAN CATCH; URINE COLOR YELLOW (YELLW/STRAW)
[2016-07-01 08:34] VITALS: RESP 16; O2SAT 97
[2016-07-01 08:34] LABS: BACTERIA, URINE FEW /hpf; COMMENT (UR) CULT NOT INDICATED; CULTURE IF INDICATED CULT NOT INDICATED; RBC, URINE 0-3 /hpf (0-3); SQUAMOUS EPITHELIAL CELL URINE > 8 /hpf (0-5)
[2016-07-01 08:50] VITALS: BP 114/66; PULSE 100; RESP 16; O2SAT 99
[2016-07-01 08:50] LABS: AUTOMATED NEUTROPHIL # 10.2 TH/MM3 (1.8-7.7); BASOPHIL # 0.1 TH/MM3 (0-0.2); BASOPHIL % 0.7 % (0.0-2.0); EOSINOPHIL # 0.2 TH/MM3 (0-0.4); EOSINOPHIL % 1.4 % (0.0-4.0); HEMATOCRIT 31.1 % (35.0-46.0); HEMO FLAGS DIFF FINAL; LYMPH % 4.4 % (9.0-44.0); LYMPHOCYTE # 0.5 TH/MM3 (1.0-4.8); MEAN CELL VOLUME 88.2 FL (80.0-100.0); MEAN CORPUSCULAR HEMOGLOBIN 28.4 PG (27.0-34.0); MEAN CORPUSCULAR HGB CONC 32.2 % (32.0-36.0); MONO % 3.9 % (0.0-8.0); NEUT % 89.6 % (16.0-70.0); PLATELET COUNT 401 TH/MM3 (150-450); RED BLOOD COUNT 3.53 MIL/MM3 (4.00-5.30); WHITE BLOOD COUNT 11.4 TH/MM3 (4.0-11.0)
[2016-07-01 08:59] LABS: CHLORIDE 100 MEQ/L (98-107); POTASSIUM 3.9 MEQ/L (3.5-5.1); SODIUM (NA) 139 MEQ/L (136-145)
[2016-07-01 09:06] LABS: ALT (GPT) 29 U/L (10-53); ANION GAP 9 MEQ/L (5-15); AST (GOT) 24 U/L (15-37); BICARBONATE 30.5 MEQ/L (21.0-32.0); BLOOD UREA NITROGEN 3 MG/DL (7-18); GLOMERULAR FILTRATION RATE 69 ML/MIN (>89)
--- NOTE | 2016-07-01 09:10 | RADHPO ---
EXAM DATE/TIME: 07/01/2016 08:13 [facility] COMPARISON: CHEST SINGLE AP, June 24, 2016, 20:14. INDICATIONS : Fever. MEDICAL HISTORY : Pancreatitis. Cirrhosis. Hiatal hernia. SURGICAL HISTORY : None. ENCOUNTER: Initial ACUITY: 2 days PAIN SCORE: 0/10 LOCATION: Bilateral chest FINDINGS: A single view of the chest demonstrates the lungs to be symmetrically aerated without evidence of mas s, infiltrate or effusion. The cardiomediastinal contours are unremarkable. Osseous structures are intact. CONCLUSION: No acute disease. No significant change has occurred. Rio Yost MD on July 01, 2016 at 9:07 Board Certified Radiologist. This report was verified electronically.
[2016-07-01 09:12] LABS: ALKALINE PHOSPHATASE 63 U/L (45-117); TOTAL BILIRUBIN ADULT 0.2 MG/DL (0.2-1.0)
[2016-07-01 09:20] VITALS: BP 103/61; PULSE 97; RESP 16; TEMP 99.5; O2SAT 98
== END 2016-07-01 10:05 | disposition home or self-care (01) ==
LOC: PHED 07:34
DX: R50.9 Fever, unspecified (principal); D72.829 Elevated white blood cell count, unspecified; F31.9 Bipolar disorder, unspecified; F41.9 Anxiety disorder, unspecified; K21.9 Gastro-esophageal reflux disease without esophagitis; K85.90 Acute pancreatitis without necrosis or infection, unspecified; R56.9 Unspecified convulsions; Z79.899 Other long term (current) drug therapy
CPT/HCPCS: 71010; 80053; 81001; 83605; 85025; 87040; 87804; 96360; 99284; J7030

== ENCOUNTER 2016-08-21 17:50 | Observation (INO) | payer SELFPAY ==
[~2016-08-21] VITALS: Ht 157.5 cm; Wt 35.3 kg
[~2016-08-21 17:50] MED LIST changes: -PANT40TA3 PO; -THERM PO; -TRAZ100T4 PO; +TRAZ300T2 PO
[2016-08-21 17:52] VITALS: BP 103/68; PULSE 104; RESP 20; TEMP 98.6; O2SAT 94
[2016-08-21] MEDS ORDERED: CLON0.5T PO (18:45)
[2016-08-21] MEDS ORDERED: ONDANSETRON HCL 4 MG/2 ML VIAL IV PUSH ONE (19:15)
[2016-08-21] MEDS ORDERED: SODIUM CHLORIDE 0.9% FLUSH 10 ML FLUSH IVF PRN (19:15)
[2016-08-21] MEDS ORDERED: SODIUM CHLOR 0.9% 1000 ML INJ 1,000 ML IV ONE (19:15)
--- NOTE | 2016-08-21 19:34 | RADRPT ---
EXAM DATE/TIME: 08/21/2016 19:04 [facility] COMPARISON: No previous studies available for comparison. INDICATIONS : Chest Pain MEDICAL HISTORY : Pancreatitis. Cirrhosis. Hiatal hernia SURGICAL HISTORY : None. ENCOUNTER: Initial ACUITY: 1 day PAIN SCORE: 4/10 LOCATION: Bilateral chest FINDINGS: The lungs are clear without infiltrate, nodule, or mass. There is no appreciable pleural effusion fo r technique. Heart and mediastinum are unremarkable. CONCLUSION: No acute cardiopulmonary disease. Kayla Downs MD on August 21, 2016 at 19:32 Board Certified Radiologist. This report was verified electronically.
--- NOTE | 2016-08-21 20:06 | PD ---
HPI Chief Complaint: Abnormal Results Time Seen by Provider: 18:30 Travel History International Travel<30 days: No Contact w/Intl Traveler<30days: No Traveled to known affect area: No History of Present Illness HPI Patient's a 40-year-old female presenting to emergency for evaluation of abdominal pain, chest pain, back pain. Patient states it's been ongoing for 2 weeks. She reports weakness, nausea, palpitations, muscle cramps. She states that she is tolerating dry crackers but if she attempts to eat anything else she vomits. She reports a fever of 103 1 week ago but none since then. Patient has a past medical history significant for anorexia and bulimia, she states that she has not been vomiting on purpose or binging. PFSH Past Medical History Hx Anticoagulant Therapy: No Anemia: Yes Arthritis: Yes Asthma: No Autoimmune Disease: No Blood Disorders: No Bipolar Disorder: Yes Anxiety: Yes Depression: Yes Heart Rhythm Problems: No Cancer: Yes ( melanoma abdomen) Cardiovascular Problems: No High Cholesterol: No Chemotherapy: No Chest Pain: No Congestive Heart Failure: No COPD: No Cerebrovascular Accident: No Developmental Delay: No Diabetes: No Diminished Hearing: No Endocrine: No Gastrointestinal Disorders: Yes (DELAYED GASTRIC EMPTYING, ) GERD: Yes Genitourinary: No Hiatal Hernia: Yes Hypertension: No Immune Disorder: No Implanted Vascular Access Dvce: No Insomnia: Yes Kidney Stones: No Musculoskeletal: Yes (hurt back 1 month ago) Psychiatric: Yes (anorexia and bulimia) Reproductive: No Respiratory: Yes (COPD) Immunizations Current: Yes Migraines: Yes Myocardial Infarction: No Pancreatitis: Yes Radiation Therapy: No Renal Failure: No Sleep Apnea: No Thyroid Disease: No Ulcer: Yes ?: Not : 3 Para: 1 Miscarriage: 1 : 1 Past Surgical History Abdominal Surgery: No AICD: No Arteriovenous Shunt: No Cardiac Surgery: No Ear Surgery: No Endocrine Surgery: No Eye Surgery: Yes (PT STATES SHE HAD EYE SURGERY FOR "LAZY EYE" WHEN SHE WAS 3 YEARS OLD.) Genitourinary Surgery: No Gynecologic Surgery: No Hysterectomy: No Insulin Pump: No Joint Replacement: No Neurologic Surgery: No Oral Surgery: No Pacemaker: No Thoracic Surgery: No Social History Alcohol Use: Yes (CHRONIC ALCOHOLIC; just detoxed ) Tobacco Use: Yes Substance Use: No Allergies-Medications (Allergen,Severity, Reaction): Coded Allergies: [place] (Verified Allergy, Severe, Seizures, 08/21/16) Morphine (Verified Adverse Reaction, Severe, Hives, 08/21/16) *MDRO Multi-Drug Resistant Organism (Verified Adverse Reaction, Unknown, Cleared 01/12/16, 08/21/16) MRSA (skin) - 07/2010 MRSA PCR Screens NEGATIVE - 12/10/15 & 01/12/16 Cleared per Infection Control Reported Meds & Prescriptions Reported Meds & Active Scripts Active Reported Clonazepam 0.5 Mg Tab 0.5 Mg PO TID Trazodone (Trazodone HCl) 300 Mg Tab 200 Mg PO HS Duoneb (Ipratropium-Albuterol Neb) 0.5-2.5 Mg/3 Ml Neb 1 Nebule INH PRN Gabapentin 100 Mg Cap 100 Mg PO TID Prozac (Fluoxetine HCl) 20 Mg Cap 60 Mg PO DAILY Review of Systems Except as stated in HPI: all other systems reviewed are Neg Cardiovascular: Positive: Chest Pain or Discomfort Respiratory: No: Shortness of Breath Gastrointestinal: Positive: Nausea, Vomiting, Abdominal Pain, Constipation Genitourinary: No: Dysuria Neurologic: Positive: Weakness Psychiatric: Positive: Other (eating disorder) Physical Exam Narrative GENERAL: Cachectic, well-developed, alert female. Resting comfortably in no acute distress. SKIN: Warm and dry. HEAD: Atraumatic. Normocephalic. EYES: Pupils equal and round. No scleral icterus. No injection or drainage. ENT: No nasal bleeding or discharge. Mucous membranes pink and moist. NECK: Trachea midline. No JVD. CARDIOVASCULAR: Tachycardic RESPIRATORY: No accessory muscle use. Clear to auscultation. Breath sounds equal bilaterally. GASTROINTESTINAL: Abdomen soft, mildly tender to palpation diffusely, nondistended. Hepatic and splenic margins not palpable. Positive bowel sounds, no rebound, guarding MUSCULOSKELETAL: Extremities without clubbing, cyanosis, or edema. No obvious deformities. NEUROLOGICAL: Awake and alert. No obvious cranial nerve deficits. Motor grossly within normal limits. Five out of 5 muscle strength in the arms and legs. Normal speech. PSYCHIATRIC: Appropriate mood and affect; insight and judgment normal. Data Data Last Documented VS Vital Signs Date Time Temp Pulse Resp B/P Pulse Ox O2 Delivery O2 Flow Rate FiO2 08/21/16 20:10 97 Room Air 08/21/16 17:52 98.6 104 20 103/68 Orders Electrocardiogram (08/21/16 ) Ckmb (Isoenzyme) Profile (08/21/16 19:07) Complete Blood Count With Diff (08/21/16 19:07) Comprehensive Metabolic Panel (08/21/16 19:07) Magnesium (Mg) (08/21/16 19:07) Prothrombin Time / Inr (Pt) (08/21/16 19:07) Act Partial Throm Time (Ptt) (08/21/16 19:07) Troponin I (08/21/16 19:07) Lipase (08/21/16 19:07) Chest, Single Ap (08/21/16 19:07) Ecg Monitoring (08/21/16 19:07) Bilateral Bp Monitoring (08/21/16 19:) Iv Access Insert/Monitor (08/21/16 19:07) Oximetry (08/21/16 19:07) Oxygen Administration (08/21/16 19:07) Sodium Chloride 0.9% Flush (Ns Flush) (08/21/16 19:15) Sodium Chlor 0.9% 1000 Ml Inj (Ns 1000 M (08/21/16 19:15) Ondansetron Inj (Zofran Inj) (08/21/16 19:15) Ct Abd/Pel W Iv Contrast(Rout) (08/21/16 ) Ed Urine Pregnancytest Poc (08/21/16 19:09) Urinalysis - C+S If Indicated (08/21/16 20:22) Ketorolac Inj (Toradol Inj) (08/21/16 20:30) Alcohol (Ethanol) (08/21/16 20:42) Labs Laboratory Tests Test 08/21/16 19:20 White Blood Count 9.1 TH/MM3 Red Blood Count 4.53 MIL/MM3 Hemoglobin 13.6 GM/DL Hematocrit 40.5 % Mean Corpuscular Volume 89.5 FL Mean Corpuscular Hemoglobin 30.1 PG Mean Corpuscular Hemoglobin 33.6 % Concent Red Cell Distribution Width 16.0 % Platelet Count 366 TH/MM3 Mean Platelet Volume 9.1 FL Neutrophils (%) (Auto) 38.7 % Lymphocytes (%) (Auto) 46.2 % Monocytes (%) (Auto) 8.9 % Eosinophils (%) (Auto) 5.6 % Basophils (%) (Auto) 0.6 % Neutrophils # (Auto) 3.5 TH/MM3 Lymphocytes # (Auto) 4.2 TH/MM3 Monocytes # (Auto) 0.8 TH/MM3 Eosinophils # (Auto) 0.5 TH/MM3 Basophils # (Auto) 0.1 TH/MM3 CBC Comment AUTO DIFF Alanine Aminotransferase 28 U/L (ALT/SGPT) MDM Medical Decision Making Medical Screen Exam Complete: Yes Emergency Medical Condition: Yes Interpretation(s) Last Impressions Chest X-Ray 08/21/[id number] Signed Impressions: Service Date/Time: Sunday, August 21, 2016 19:04 - CONCLUSION: No acute cardiopulmonary disease. Kayla Downs MD Vital Signs Date Time Temp Pulse Resp B/P Pulse Ox O2 Delivery O2 Flow Rate FiO2 08/21/16 17:52 98.6 104 20 103/68 94 Room Air Differential Diagnosis Metabolic abnormality versus gastritis versus ACS versus mood disorder versus other Narrative Course Patient is a 40-year-old female that presented to emergency department for evaluation of chest, back, abdominal pain. Patient is mildly tachycardic and hypotensive on arrival. She does have a history of anorexia and bulimia. Labs and imaging ordered and pending. CXR shows no acute disease. Toradol, IVF, and zofran ordered. Care of patient transferred to Dr. Engel at the end of my shift. Pati Burgess Aug 21, 2016 20:06
[2016-08-21 20:17] LABS: AUTOMATED NEUTROPHIL # 3.5 TH/MM3 (1.8-7.7); BASOPHIL # 0.1 TH/MM3 (0-0.2); BASOPHIL % 0.6 % (0.0-2.0); EOSINOPHIL # 0.5 TH/MM3 (0-0.4); EOSINOPHIL % 5.6 % (0.0-4.0); HEMATOCRIT 40.5 % (35.0-46.0); LYMPH % 46.2 % (9.0-44.0); LYMPHOCYTE # 4.2 TH/MM3 (1.0-4.8); MEAN CELL VOLUME 89.5 FL (80.0-100.0); MEAN CORPUSCULAR HEMOGLOBIN 30.1 PG (27.0-34.0); MEAN CORPUSCULAR HGB CONC 33.6 % (32.0-36.0); MONO % 8.9 % (0.0-8.0); NEUT % 38.7 % (16.0-70.0); PLATELET COUNT 366 TH/MM3 (150-450); RED BLOOD COUNT 4.53 MIL/MM3 (4.00-5.30); WHITE BLOOD COUNT 9.1 TH/MM3 (4.0-11.0)
[2016-08-21 20:26] LABS: ALT (GPT) 28 U/L (10-53)
[2016-08-21] MEDS ORDERED: KETOROLAC TROMETHAMINE 30 MG/ML (IVP) VIAL IV PUSH ONE (20:30)
[2016-08-21 20:34] LABS: ALKALINE PHOSPHATASE 92 U/L (45-117); ANION GAP 5 MEQ/L (5-15); AST (GOT) 65 U/L (15-37); BICARBONATE 29.7 MEQ/L (21.0-32.0); BLOOD UREA NITROGEN 7 MG/DL (7-18); CHLORIDE 91 MEQ/L (98-107); GLOMERULAR FILTRATION RATE 72 ML/MIN (>89); POTASSIUM 4.2 MEQ/L (3.5-5.1); SODIUM (NA) 126 MEQ/L (136-145); TOTAL BILIRUBIN ADULT 0.3 MG/DL (0.2-1.0)
[2016-08-21 20:35] LABS: HEMO FLAGS AUTO DIFF
[2016-08-21 20:47] LABS: CREATINE KINASE 90 U/L (26-192)
[2016-08-21 20:51] LABS: BACTERIA, URINE RARE /hpf; BLOOD, URINE NEG (NEG); COMMENT (UR) CULT NOT INDICATED; CULTURE IF INDICATED CULT NOT INDICATED; GLUCOSE,URINE NEG (NEG); KETONE, URINE NEG (NEG); NITRITE,URINE NEG (NEG); SQUAMOUS EPITHELIAL CELL URINE 4 /hpf (0-5); URINE COLOR LIGHT-YELLOW (YELLW/STRAW)
[2016-08-21 21:04] LABS: PLATELET ESTIMATE SMEAR NORMAL (NORMAL); PLATELET MORPHOLOGY NORMAL (NORMAL); SCAN/DIFF AUTO DIFF CONFIRMED
[2016-08-21] MEDS ORDERED: IOHEXOL 350 MG/ML 10 ML VIAL (for RAD DIAG) IV ONE (21:29)
--- NOTE | 2016-08-21 21:35 | PD ---
Physical Exam Date Seen by Provider: Aug 21, 2016 Time Seen by Provider: 21:32 Narrative The patient is a 40-year-old female was initially evaluated by the mid-level provider. Please refer to the initial history, physical, diagnostic evaluation , and treatment modality plan. Data Data Last Documented VS Vital Signs Date Time Temp Pulse Resp B/P Pulse Ox O2 Delivery O2 Flow Rate FiO2 08/21/16 22:01 72 16 116/74 100 Room Air 08/21/16 17:52 98.6 Orders Electrocardiogram (08/21/16 ) Ckmb (Isoenzyme) Profile (08/21/16 19:07) Complete Blood Count With Diff (08/21/16 19:07) Comprehensive Metabolic Panel (08/21/16 19:07) Magnesium (Mg) (08/21/16 19:07) Prothrombin Time / Inr (Pt) (08/21/16 19:07) Act Partial Throm Time (Ptt) (08/21/16 19:07) Troponin I (08/21/16 19:07) Lipase (08/21/16 19:07) Chest, Single Ap (08/21/16 19:07) Ecg Monitoring (08/21/16 19:07) Bilateral Bp Monitoring (08/21/16 19:07) Iv Access Insert/Monitor (08/21/16 19:07) Oximetry (08/21/16 19:07) Oxygen Administration (08/21/16 19:07) Sodium Chloride 0.9% Flush (Ns Flush) (08/21/16 19:15) Sodium Chlor 0.9% 1000 Ml Inj (Ns 1000 M (08/21/16 19:15) Ondansetron Inj (Zofran Inj) (08/21/16 19:15) Ct Abd/Pel W Iv Contrast(Rout) (08/21/16 ) Ed Urine Pregnancytest Poc (08/21/16 19:09) Urinalysis - C+S If Indicated (08/21/16 20:22) Ketorolac Inj (Toradol Inj) (08/21/16 20:30) Alcohol (Ethanol) (08/21/16 20:42) Iohexol 350 Inj (Omnipaque 350 Inj) (08/21/16 21:29) Admit Order (Ed Use Only) (08/21/16 22:11) Labs Laboratory Tests Test 08/21/16 08/21/16 08/21/16 19:05 19:20 21:05 Urine Color LIGHT-YELLOW Urine Turbidity CLEAR Urine pH 7.0 Urine Specific [place] 1.007 Urine Protein NEG mg/dL Urine Glucose (UA) NEG mg/dL Urine Ketones NEG mg/dL Urine Occult Blood NEG Urine Nitrite NEG Urine Bilirubin NEG Urine Urobilinogen LESS THAN 2.0 MG/DL Urine Leukocyte Esterase NEG Urine WBC 2 /hpf Urine Squamous Epithelial 4 /hpf Cells Urine Bacteria RARE /hpf Microscopic Urinalysis Comment CULT NOT INDICATED White Blood Count 9.1 TH/MM3 Red Blood Count 4.53 MIL/MM3 Hemoglobin 13.6 GM/DL Hematocrit 40.5 % Mean Corpuscular Volume 89.5 FL Mean Corpuscular Hemoglobin 30.1 PG Mean Corpuscular Hemoglobin 33.6 % Concent Red Cell Distribution Width 16.0 % Platelet Count 366 TH/MM3 Mean Platelet Volume 9.1 FL Neutrophils (%) (Auto) 38.7 % Lymphocytes (%) (Auto) 46.2 % Monocytes (%) (Auto) 8.9 % Eosinophils (%) (Auto) 5.6 % Basophils (%) (Auto) 0.6 % Neutrophils # (Auto) 3.5 TH/MM3 Lymphocytes # (Auto) 4.2 TH/MM3 Monocytes # (Auto) 0.8 TH/MM3 Eosinophils # (Auto) 0.5 TH/MM3 Basophils # (Auto) 0.1 TH/MM3 CBC Comment AUTO DIFF Differential Comment AUTO DIFF CONFIRMED Platelet Estimate NORMAL Platelet Morphology Comment NORMAL Red Cell Morphology Comment NORMAL Prothrombin Time 11.2 SEC Prothromb Time International 1.0 RATIO Ratio Activated Partial 30.4 SEC Thromboplast Time Sodium Level 126 MEQ/L Potassium Level 4.2 MEQ/L Chloride Level 91 MEQ/L Carbon Dioxide Level 29.7 MEQ/L Anion Gap 5 MEQ/L Blood Urea Nitrogen 7 MG/DL Creatinine 0.86 MG/DL Estimat Glomerular Filtration 72 ML/MIN Rate Random Glucose 73 MG/DL Calcium Level 8.4 MG/DL Magnesium Level 2.0 MG/DL Total Bilirubin 0.3 MG/DL Aspartate Amino Transf 65 U/L (AST/SGOT) Alanine Aminotransferase 28 U/L (ALT/SGPT) Alkaline Phosphatase 92 U/L Total Creatine Kinase 90 U/L Troponin I LESS THAN 0.02 NG/ML Total Protein 7.1 GM/DL Albumin 3.5 GM/DL Lipase 114 U/L Ethyl Alcohol Level 123 MG/DL [facility] Medical Record Reviewed: Yes Supervised Visit with TD: Yes Interpretation(s) Last Impressions Chest X-Ray 08/21/16 1907 Signed Impressions: Service Date/Time: Sunday, August 21, 2016 19:04 - CONCLUSION: No acute cardiopulmonary disease. Kayla Downs MD Abdomen/Pelvis CT 08/21/16 0000 Signed Impressions: Service Date/Time: Sunday, August 21, 2016 21:23 - CONCLUSION: Probable localized ileus left upper quadrant without signs of small bowel obstruction. Kayla Downs MD Laboratory Tests Test 08/21/16 08/21/16 19:05 19:20 Urine Color LIGHT-YELLOW Urine Turbidity CLEAR Urine pH 7.0 Urine Specific [place] 1.007 Urine Protein NEG mg/dL Urine Glucose (UA) NEG mg/dL Urine Ketones NEG mg/dL Urine Occult Blood NEG Urine Nitrite NEG Urine Bilirubin NEG Urine Urobilinogen LESS THAN 2.0 MG/DL Urine Leukocyte Esterase NEG Urine WBC 2 /hpf Urine Squamous Epithelial 4 /hpf Cells Urine Bacteria RARE /hpf Microscopic Urinalysis Comment CULT NOT INDICATED White Blood Count 9.1 TH/MM3 Red Blood Count 4.53 MIL/MM3 Hemoglobin 13.6 GM/DL Hematocrit 40.5 % Mean Corpuscular Volume 89.5 FL Mean Corpuscular Hemoglobin 30.1 PG Mean Corpuscular Hemoglobin 33.6 % Concent Red Cell Distribution Width 16.0 % Platelet Count 366 TH/MM3 Mean Platelet Volume 9.1 FL Neutrophils (%) (Auto) 38.7 % Lymphocytes (%) (Auto) 46.2 % Monocytes (%) (Auto) 8.9 % Eosinophils (%) (Auto) 5.6 % Basophils (%) (Auto) 0.6 % Neutrophils # (Auto) 3.5 TH/MM3 Lymphocytes # (Auto) 4.2 TH/MM3 Monocytes # (Auto) 0.8 TH/MM3 Eosinophils # (Auto) 0.5 TH/MM3 Basophils # (Auto) 0.1 TH/MM3 CBC Comment AUTO DIFF Differential Comment AUTO DIFF CONFIRMED Platelet Estimate NORMAL Platelet Morphology Comment NORMAL Red Cell Morphology Comment NORMAL Sodium Level 126 MEQ/L Potassium Level 4.2 MEQ/L Chloride Level 91 MEQ/L Carbon Dioxide Level 29.7 MEQ/L Anion Gap 5 MEQ/L Blood Urea Nitrogen 7 MG/DL Creatinine 0.86 MG/DL Estimat Glomerular Filtration 72 ML/MIN Rate Random Glucose 73 MG/DL Calcium Level 8.4 MG/DL Magnesium Level 2.0 MG/DL Total Bilirubin 0.3 MG/DL Aspartate Amino Transf 65 U/L (AST/SGOT) Alanine Aminotransferase 28 U/L (ALT/SGPT) Alkaline Phosphatase 92 U/L Total Creatine Kinase 90 U/L Troponin I LESS THAN 0.02 NG/ML Total Protein 7.1 GM/DL Albumin 3.5 GM/DL Lipase 114 U/L CT the abdomen and pelvis reveals a localized ileus but no signs of obstruction. Differential Diagnosis Differential diagnosis includes alcohol abuse, anorexia nervosa with bulimia, hyponatremia, dehydration, biliary colic, gastroparesis, depressive disorder, bipolar affective disorder, gastritis, GERD. Narrative Course I, Dr. Engel, have reviewed the advance practice practitioner's documentation and am in agreement, met with the patient face to face, made the diagnosis, and the medical decision making was done by me. *My assessment and Findings: The patient is a 40-year-old female was initially evaluated by the mid-level provider. Please refer to the initial history, physical, diagnostic evaluation, and treatment modality plan. The patient was signed out at 9 PM with laboratory evaluation and CT the abdomen and pelvis pending secondary to persistent nausea, vomiting, and epigastric abdominal discomfort. The patient's sodium was noted to be 126, when I reviewed the EMR her last several sodiums were within the normal limits. I had a discussion with the patient regarding her symptoms, she notes they have been ongoing for 2- 3 weeks. She has been able to eat a few crackers, but states she is unable to eat solid foods. She does have a history of anorexia and bulimia, however, states that disorder is under control and she has been trying to eat. However, she continues to drink alcohol, proximally 4 glasses of wine per day. She also states she had 2 glasses of wine prior to arrival. I had a discussion with the patient regarding the use of alcohol may be exacerbating her current symptoms to be the cause of her underlying hyponatremia. The patient will be 23 observation for hypernatremia and rehydration. The patient's primary physician is Dr. Ivonne John. Physician Communication Physician Communication [facility] were paged for 23 hour observation. I discussed the patient with Celeste who agrees with [address] Moise. Diagnosis Primary Impression: Hyponatremia Additional Impressions: Abdominal pain Qualified Code: R10.13 - Epigastric pain Intractable nausea and vomiting Qualified Code: R11.2 - Intractable vomiting with nausea, unspecified vomiting type Ileus Admitting Information Admitting Physician Requests: Observation Condition: Stable Yayo Engel MD Aug 21, 2016 21:35
--- NOTE | 2016-08-21 21:46 | RADRPT ---
EXAM DATE/TIME: 08/21/2016 21:23 [place] COMPARISON: CT ABDOMEN & PELVIS W CONTRAST, May 21, 2016, 14:53. INDICATIONS : Abdomen and back pain. IV CONTRAST: 60 cc Omnipaque 350 (iohexol) IV ORAL CONTRAST: No oral contrast ingested. RADIATION DOSE: 4.51 CTDIvol (mGy) MEDICAL HISTORY : Seizures. Cirrhosis. Melanoma SURGICAL HISTORY : None. ENCOUNTER: Initial ACUITY: 1 week PAIN SCALE: 5/10 LOCATION: abdomen TECHNIQUE: Volumetric scanning of the abdomen and pelvis was performed. Using automated exposure control and ad justment of the mA and/or kV according to patient size, radiation dose was kept as low as reasonably achievable to obtain optimal diagnostic quality images. DICOM format image data is available electro nically for review and comparison. FINDINGS: CT Abdomen: The liver, spleen, pancreas, kidneys, adrenals are unremarkable. There is no evidence for any appreciable pathological adenopathy, free fluid, or bowel obstruction. There are old healed rib fractures in the left chest. Some of the jejunal loops in the left upper quadrant are slightly dilat ed measuring 2.9 cm in size may representon localized ileus. CT pelvis: There is no evidence for mass, abscess formation, or any significant adenopathy within the pelvis. IUD in place. CONCLUSION: Probable localized ileus left upper quadrant without signs of small bowel obstruction . Kayla Downs MD on August 21, 2016 at 21:38 Board Certified Radiologist. This report was verified electronically.
[2016-08-21 22:00] LABS: APTT (PATIENT) 30.4 SEC (24.3-30.1); PROTHROMBIN TIME - PATIENT 11.2 SEC (9.8-11.6)
[2016-08-21 22:01] VITALS: BP 116/74; PULSE 72; RESP 16; O2SAT 100
[2016-08-21] MEDS ORDERED: NALOXONE HCL 0.4 MG/ML AMP IV PRN (22:15)
[2016-08-21] MEDS ORDERED: METOCLOPRAMIDE HCL 10 MG/2 ML VIAL IV PUSH PRN (22:15)
[2016-08-21] MEDS ORDERED: SENNOSIDES 8.6 MG TAB PO PRN (22:15)
[2016-08-21] MEDS ORDERED: BISACODYL 10 MG SUPP RECTAL PRN (22:15)
[2016-08-21] MEDS ORDERED: ACETAMINOPHEN 325 MG TAB PO PRN (22:15)
[2016-08-21] MEDS ORDERED: LACTULOSE SYRUP 20 GM/30 ML CUP PO PRN (22:15)
[2016-08-21] MEDS ORDERED: MAGNESIUM HYDROXIDE SUSP 30 ML CUP PO PRN (22:15)
[2016-08-21] MEDS ORDERED: PANTOPRAZOLE SODIUM 40 MG VIAL IV PUSH SCH (23:00)
[2016-08-21] MEDS ORDERED: SODIUM CHLOR 0.9% 1000 ML INJ 1,000 ML IV SCH (23:00)
[2016-08-21] MEDS: ENOXAPARIN SODIUM 40 MG/0.4 ML SYRINGE SQ SCH (23:49)
[2016-08-22] VITALS (9 sets, daily range): BP systolic 112–135; BP diastolic 74–85; PULSE 58–71; RESP 16–18; TEMP 98–98.8; O2SAT 96–100
[2016-08-22] MEDS: traZODone HCL 100 MG TAB PO SCH ×2 (00:59→22:19)
[2016-08-22 07:20] LABS: BASOPHIL # 0.1 TH/MM3 (0-0.2); BASOPHIL % 0.7 % (0.0-2.0); EOSINOPHIL # 0.5 TH/MM3 (0-0.4); EOSINOPHIL % 7.3 % (0.0-4.0); HEMATOCRIT 34.7 % (35.0-46.0); HEMO FLAGS DIFF FINAL; LYMPHOCYTE # 3.1 TH/MM3 (1.0-4.8); MEAN CELL VOLUME 90.8 FL (80.0-100.0); MEAN CORPUSCULAR HEMOGLOBIN 30.3 PG (27.0-34.0); MEAN CORPUSCULAR HGB CONC 33.4 % (32.0-36.0); MONO % 8.2 % (0.0-8.0); NEUT % 40.8 % (16.0-70.0); PLATELET COUNT 292 TH/MM3 (150-450); RED BLOOD COUNT 3.82 MIL/MM3 (4.00-5.30); RED CELL DISTRIBUTION WIDTH 16.1 % (11.6-17.2); WHITE BLOOD COUNT 7.3 TH/MM3 (4.0-11.0)
[2016-08-22 08:02] LABS: BICARBONATE 22.3 MEQ/L (21.0-32.0)
[2016-08-22] MEDS: ONDANSETRON HCL 4 MG/2 ML VIAL IVP PRN ×2 (08:21→19:16)
[2016-08-22] MEDS: SODIUM CHLORIDE 0.9% FLUSH 10 ML FLUSH IV FLUSH SCH ×2 (08:21→21:02)
[2016-08-22] MEDS ORDERED: THIAMINE HCL 100 MG TAB PO SCH (09:00)
[2016-08-22] MEDS: FOLIC ACID 1 MG TAB PO SCH (09:04)
[2016-08-22] MEDS: DOCUSATE SODIUM 50 MG/SENNA 8.6 MG TAB PO SCH ×2 (09:04→21:08)
[2016-08-22] MEDS: FLUoxetine HCL 20 MG CAP PO SCH (09:04)
[2016-08-22] MEDS: GABAPENTIN 100 MG CAP PO SCH ×3 (09:04→18:26)
[2016-08-22] MEDS: MULTIVITAMINS/MINERALS THERAPEUTIC TAB PO SCH (09:07)
[2016-08-22] MEDS: SODIUM CHLORIDE 23.4% INJ 154 MEQ in DEXTROSE 10% INJ 1,000 ML IV SCH (10:04)
[2016-08-22] MEDS ORDERED: KETOROLAC TROMETHAMINE 30 MG/ML (IVP) VIAL IV PUSH ONE (11:30)
[2016-08-22] MEDS: SODIUM CHLORIDE 0.9% FLUSH 10 ML FLUSH IV FLUSH PRN ×3 (12:06→19:17)
--- NOTE | 2016-08-22 13:52 | EKG ---
Date Performed: 08/21/2016 Time Performed: 19:01:20 PTAGE: 40 years EKG: Sinus rhythm NORMAL ECG INTERPRETATION BASED ON A DEFAULT AGE OF 38 YEARS PREVIOUS TRACING : 06/24/2016 19.54 Since prior tracing, sinus rate has slowed. Nonspecif ic ST changes have improved. DOCTOR: Nicolas Silverman Interpretating Date/Time 08/22/2016 13:51:11
[2016-08-22] MEDS: THIAMINE INJ 100 MG in SODIUM CHLORIDE 0.9% INJ 100 ML IV SCH (14:16)
--- NOTE | 2016-08-22 14:34 | HHI.HP ---
HPI Service [facility]ists Primary Care Physician Shayne Mckeon M.D. Admission Diagnosis hyponatremia, ileus, abdominal pain, nausea/vomiting Diagnoses: Travel History International Travel<30 Days: No Contact w/Intl Traveler <30 Da: No Traveled to Known Affected Are: No History of Present Illness This is a 40-year-old female patient of Dr.KASHYAP MCKEON. The patient has a long history of recurrent nausea and vomiting, she has a history of anorexia and bulimia which apparently has gotten better recently. She had pneumonia in January 2016 after which she discontinued smoking , however she went back to smoking over the last month or so. She presented to the emergency department at [facility] last night with worsening of her nausea, vomiting, abdominal pain, back pain and abdominal cramps. She stated that she had temperature of up to 103.0 about a week ago. She also felt very dizzy. She was seen by the undersigned earlier today at 69. She stated that she has some chest pain with deep inspiration. She denied any blood with her vomiting. CT scan of the abdomen showed a left upper quadrant limited area of what looks like ileus. She continues to drink alcohol 2-3 wine and beer a day. Her presenting alcohol level was 123. Sodium 126. Sugar was 60. She also stated that she had a diagnosis of C. difficile colitis in January 2016 which is actually not on her computer records. 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 difficile colitis in January 2016 Past Surgical History Eye surgery when she was 3 years of age Reported Medications Reported Meds & Active Scripts Active Reported Clonazepam 0.5 Mg Tab 0.5 Mg PO TID Trazodone (Trazodone HCl) 300 Mg Tab 200 Mg PO HS Duoneb (Ipratropium-Albuterol Neb) 0.5-2.5 Mg/3 Ml Neb 1 Nebule INH PRN Gabapentin 100 Mg Cap 100 Mg PO TID Prozac (Fluoxetine HCl) 20 Mg Cap 60 Mg PO DAILY Allergies: Coded Allergies: [place] (Verified Allergy, Severe, Seizures, 08/21/16) Morphine (Verified Adverse Reaction, Severe, Hives, 08/21/16) *MDRO Multi-Drug Resistant Organism (Verified Adverse Reaction, Unknown, Cleared 01/12/16, 08/21/16) MRSA (skin) - 07/2010 MRSA PCR Screens NEGATIVE - 12/10/15 & 01/12/16 Cleared per Infection Control Family History Reviewed but noncontributory Social History She smokes half pack of cigarettes a day, drinks about 3 alcoholic drinks a day between 1 and beer, no illicit drug use, lives at home with her fianc Physical Exam Vital Signs Vital Signs Date Time Temp Pulse Resp B/P Pulse Ox O2 Delivery O2 Flow Rate FiO2 08/22/16 11:58 98.4 58 16 131/80 98 08/22/16 07:50 98.8 61 16 127/74 99 08/22/16 03:56 98.0 62 17 122/80 96 08/22/16 02:09 98.0 60 18 135/85 100 08/21/16 22:01 72 16 116/74 100 Room Air 08/21/16 20:10 97 Room Air 08/21/16 20:10 Room Air 08/21/16 17:52 98.6 104 20 103/68 94 Room Air Physical Exam GENERAL: This is a pleasant, very poorly nourished, well-developed patient, in no apparent distress. SKIN: No rashes, ecchymoses or lesions. Cool and dry. HEAD: Atraumatic. Normocephalic. No temporal or scalp tenderness. EYES: Pupils equal round and reactive. Extraocular motions intact. No scleral icterus. No injection or drainage. ENT: Nose without bleeding, purulent drainage or septal hematoma. Throat without erythema, tonsillar hypertrophy or exudate. Uvula midline. Airway patent. NECK: Trachea midline. No JVD or lymphadenopathy. Supple, nontender, no meningeal signs. CARDIOVASCULAR: Regular rate and rhythm , soft murmur present . RESPIRATORY: Bilateral crackles on chest exam . GASTROINTESTINAL: Abdomen mildly tender, bowel sounds are present MUSCULOSKELETAL: Extremities without clubbing, cyanosis, or edema. No joint tenderness, effusion, or edema noted. No calf tenderness. Negative Homans sign bilaterally. NEUROLOGICAL: Awake and alert. Cranial nerves II through XII intact. Normal speech. Laboratory Laboratory Tests Test 08/21/16 08/21/16 08/21/16 08/22/16 19:05 19:20 21:05 05:50 Urine Color LIGHT-YELLOW Urine Turbidity CLEAR Urine pH 7.0 Urine Specific [place] 1.007 Urine Protein NEG Urine Glucose (UA) NEG Urine Ketones NEG Urine Occult Blood NEG Urine Nitrite NEG Urine Bilirubin NEG Urine Urobilinogen LESS THAN 2.0 Urine Leukocyte Esterase NEG Urine WBC 2 Urine Squamous Epithelial 4 Cells Urine Bacteria RARE Microscopic Urinalysis Comment CULT NOT INDICATED White Blood Count 9.1 7.3 Red Blood Count 4.53 3.82 Hemoglobin 13.6 11.6 Hematocrit 40.5 34.7 Mean Corpuscular Volume 89.5 90.8 Mean Corpuscular Hemoglobin 30.1 30.3 Mean Corpuscular Hemoglobin 33.6 33.4 Concent Red Cell Distribution Width 16.0 16.1 Platelet Count 366 292 Mean Platelet Volume 9.1 7.7 Neutrophils (%) (Auto) 38.7 40.8 Lymphocytes (%) (Auto) 46.2 43.0 Monocytes (%) (Auto) 8.9 8.2 Eosinophils (%) (Auto) 5.6 7.3 Basophils (%) (Auto) 0.6 0.7 Neutrophils # (Auto) 3.5 3.0 Lymphocytes # (Auto) 4.2 3.1 Monocytes # (Auto) 0.8 0.6 Eosinophils # (Auto) 0.5 0.5 Basophils # (Auto) 0.1 0.1 CBC Comment AUTO DIFF DIFF FINAL Differential Comment AUTO DIFF CONFIRMED Platelet Estimate NORMAL Platelet Morphology Comment NORMAL Red Cell Morphology Comment NORMAL Prothrombin Time 11.2 Prothromb Time International 1.0 Ratio Activated Partial 30.4 Thromboplast Time Sodium Level 126 131 Potassium Level 4.2 4.0 Chloride Level 91 102 Carbon Dioxide Level 29.7 22.3 Anion Gap 5 7 Blood Urea Nitrogen 7 7 Creatinine 0.86 0.76 Estimat Glomerular Filtration 72 83 Rate Random Glucose 73 60 Calcium Level 8.4 7.7 Magnesium Level 2.0 Total Bilirubin 0.3 Aspartate Amino Transf 65 (AST/SGOT) Alanine Aminotransferase 28 (ALT/SGPT) Alkaline Phosphatase 92 Total Creatine Kinase 90 Troponin I LESS THAN 0.02 Total Protein 7.1 Albumin 3.5 Lipase 114 Ethyl Alcohol Level 123 Test 08/22/16 11:41 Random Cortisol 13.7 Result Diagram: 08/22/16 0550 08/22/16 0550 Imaging Last 24 hours Impressions Chest X-Ray 08/21/16 1907 Signed Impressions: Service Date/Time: Sunday, August 21, 2016 19:04 - CONCLUSION: No acute cardiopulmonary disease. Kayla Downs MD Assessment and Plan Assessment and Plan Assessment Nausea and vomiting Abdominal pain Pleuritic chest pain Cramps Alcohol intoxication Hyponatremia Hypoglycemia Limited area of ileus and the left upper quadrant on CT scan of the abdomen Alcoholism Tobacco abuse Management D10 normal saline has been started Thiamine 100 mg IV daily started Was given doses of Toradol IV Low-dose IV morphine is also given to control her pain when necessary GI consultation is requested The patient has been placed on observation CT scan of the chest rule out PE Telemetry EKG Advance diet as tolerated Start bethanechol She is strongly recommended to quit both smoking and drinking Nicotine patch is ordered DVT prophylaxis with low-dose heparin Discussed with patient Discussed with nurse 45 minutes spent Chaitanya Moise MD Aug 22, 2016 14:34
[2016-08-22] MEDS: NICOTINE 14 MG/24 HR PATCH T-DERMAL SCH (15:15)
--- NOTE | 2016-08-22 15:44 | PD.CONS ---
HPI History of Present Illness This is a 40 yo lady with hx anorexia, gastroparesis, bulimia, COPD, ETOH abuse who presented to the ER with c/o back and chest discomfort. She has been having RUQ pain and mid abdominal pain worse after eating, waxing and waning in severity. No other exacerbating or alleviating factors. She feels she has been getting weak from not eating. She admits nausea and vomiting, no blood in emesis. No diarrhea. No blood in stool or black stool. Per CT she has LUQ ileus with no sign small bowel obstruction. She admits chronic constipation on account of her gastroparesis, takes miralax daily. Last BM 2d ago, and was solid. She has lost 10lbs and the last 2-3 weeks. Last had colonoscopy 2-3 years ago, polyps were found, was done in [place]. Had E[place] [facility], thinks it may have been a year ago and cannot remember findings. Denies sick contacts , medication or diet changes, fevers. (Alexus Russell) PFSH Past Medical History Gastroparesis COPD per EMR hx anorexia, bulimia Past Surgical History eye surgery excision malignant melanoma left abd (Alexus Russell) Coded Allergies: [place] (Verified Allergy, Severe, Seizures, 08/21/16) Morphine (Verified Adverse Reaction, Severe, Hives, 08/21/16) *MDRO Multi-Drug Resistant Organism (Verified Adverse Reaction, Unknown, Cleared 01/12/16, 08/21/16) MRSA (skin) - 07/2010 MRSA PCR Screens NEGATIVE - 12/10/15 & 01/12/16 Cleared per Infection Control Family History none Social History drinks 2-3 glasses wine or beer daily 1/2 ppd no illicit drugs (Alexus Russell) Review of Systems Constitutional: COMPLAINS OF: Weight loss, DENIES: Fever Eyes: DENIES: Blurred vision Ears, nose, mouth, throat: DENIES: Hearing loss Respiratory: DENIES: Cough Gastrointestinal: COMPLAINS OF: Abdominal pain, Constipation, Nausea, Vomiting , Anorexia, DENIES: Black stools, Bloody stools, Diarrhea, Hematemesis Genitourinary: DENIES: Hematuria Musculoskeletal: DENIES: Joint Swelling Integumentary: DENIES: Rash Hematologic/lymphatic: DENIES: Bruising Neurologic: DENIES: Abnormal gait Psychiatric: DENIES: Confusion (Alexus Russell) GI Exam Vitals I&O Vital Signs Date Time Temp Pulse Resp B/P Pulse Ox O2 Delivery O2 Flow Rate FiO2 08/22/16 15:27 98.5 62 16 112/76 99 08/22/16 11:58 98.4 58 16 131/80 98 08/22/16 07:50 98.8 61 16 127/74 99 08/22/16 03:56 98.0 62 17 122/80 96 08/22/16 02:09 98.0 60 18 135/85 100 08/21/16 22:01 72 16 116/74 100 Room Air 08/21/16 20:10 97 Room Air 08/21/16 20:10 Room Air 08/21/16 17:52 98.6 104 20 103/68 94 Room Air I/O 08/21/16 08/21/16 08/21/16 08/22/16 08/22/16 08/22/16 07:00 15:00 23:00 07:00 15:00 23:00 Intake Total 504 ml Balance 504 ml Intake IV Total 504 ml Laboratory Test 08/21/16 08/21/16 08/21/16 08/22/16 19:05 19:20 21:05 05:50 Urine Color LIGHT-YELLOW Urine Turbidity CLEAR Urine pH 7.0 Urine Specific [place] 1.007 Urine Protein NEG mg/dL Urine Glucose (UA) NEG mg/dL Urine Ketones NEG mg/dL Urine Occult Blood NEG Urine Nitrite NEG Urine Bilirubin NEG Urine Urobilinogen LESS THAN 2.0 MG/DL Urine Leukocyte Esterase NEG Urine WBC 2 /hpf Urine Squamous Epithelial 4 /hpf Cells Urine Bacteria RARE /hpf Microscopic Urinalysis Comment CULT NOT INDICATED White Blood Count 9.1 TH/MM3 7.3 TH/MM3 Red Blood Count 4.53 MIL/MM3 3.82 MIL/MM3 Hemoglobin 13.6 GM/DL 11.6 GM/DL Hematocrit 40.5 % 34.7 % Mean Corpuscular Volume 89.5 FL 90.8 FL Mean Corpuscular Hemoglobin 30.1 PG 30.3 PG Mean Corpuscular Hemoglobin 33.6 % 33.4 % Concent Red Cell Distribution Width 16.0 % 16.1 % Platelet Count 366 TH/MM3 292 TH/MM3 Mean Platelet Volume 9.1 FL 7.7 FL Neutrophils (%) (Auto) 38.7 % 40.8 % Lymphocytes (%) (Auto) 46.2 % 43.0 % Monocytes (%) (Auto) 8.9 % 8.2 % Eosinophils (%) (Auto) 5.6 % 7.3 % Basophils (%) (Auto) 0.6 % 0.7 % Neutrophils # (Auto) 3.5 TH/MM3 3.0 TH/MM3 Lymphocytes # (Auto) 4.2 TH/MM3 3.1 TH/MM3 Monocytes # (Auto) 0.8 TH/MM3 0.6 TH/MM3 Eosinophils # (Auto) 0.5 TH/MM3 0.5 TH/MM3 Basophils # (Auto) 0.1 TH/MM3 0.1 TH/MM3 CBC Comment AUTO DIFF DIFF FINAL Differential Comment AUTO DIFF CONFIRMED Platelet Estimate NORMAL Platelet Morphology Comment NORMAL Red Cell Morphology Comment NORMAL Prothrombin Time 11.2 SEC Prothromb Time International 1.0 RATIO Ratio Activated Partial 30.4 SEC Thromboplast Time Sodium Level 126 MEQ/L 131 MEQ/L Potassium Level 4.2 MEQ/L 4.0 MEQ/L Chloride Level 91 MEQ/L 102 MEQ/L Carbon Dioxide Level 29.7 MEQ/L 22.3 MEQ/L Anion Gap 5 MEQ/L 7 MEQ/L Blood Urea Nitrogen 7 MG/DL 7 MG/DL Creatinine 0.86 MG/DL 0.76 MG/DL Estimat Glomerular Filtration 72 ML/MIN 83 ML/MIN Rate Random Glucose 73 MG/DL 60 MG/DL Calcium Level 8.4 MG/DL 7.7 MG/DL Magnesium Level 2.0 MG/DL Total Bilirubin 0.3 MG/DL Aspartate Amino Transf 65 U/L (AST/SGOT) Alanine Aminotransferase 28 U/L (ALT/SGPT) Alkaline Phosphatase 92 U/L Total Creatine Kinase 90 U/L Troponin I LESS THAN 0.02 NG/ML Total Protein 7.1 GM/DL Albumin 3.5 GM/DL Lipase 114 U/L Ethyl Alcohol Level 123 MG/DL Test 08/22/16 11:41 Random Cortisol 13.7 MCG/DL Physical Examination HEENT: PERRL; normocephalic; atraumatic; no jaundice. CHEST: CTA CARDIAC: RRR ABDOMEN: Soft, nondistended, epigastric TTP; no hepatosplenomegaly; bowel sounds are present in all four quadrants. EXTREMITIES: No clubbing, cyanosis, or edema. SKIN: Normal; no rash; no jaundice. LONG GOODS DRIER: No focal deficits; alert and oriented times three. (Alexus Russell) Assessment and Plan Plan ASSESSMENT - n/v, epigastric pain - pt has hx gastroparesis, chronic constipation. CT 08-22--> prob localize ileus LUQ w/o signs SBO. of note, blood ETOH 123 on admission PLAN - EGD colonoscopy - clears - obtain consents - NPO after midnight - mg citrate prep - supportive care - further recommendations to follow This pt seen by myself and Dr Dasilva and this note is written on his behalf (Alexus Russell) Physician Comments patient was seen and examined, agree with above note and plan, plan for colon EGD in am. (Nitish Dasilva MD) Alexus Russell Aug 22, 2016 15:44 Nitish Dasilva MD Aug 22, 2016 19:23
[2016-08-22 15:53] LABS: BETA HCG QUANT LESS THAN 1 MIU/ML (0-5)
[2016-08-22] MEDS: MORPHINE SULFATE 8 MG/ML INJ IV PUSH PRN ×2 (16:17→21:08)
[2016-08-22] MEDS ORDERED: IOHEXOL 350 MG/ML 10 ML VIAL (for RAD DIAG) IV ONE (17:57)
[2016-08-22] MEDS ORDERED: MAGNESIUM CITRATE SOLN 300 ML BTL PO ONE ×3 (18:00→21:00)
--- NOTE | 2016-08-22 18:03 | RADRPT ---
EXAM DATE/TIME: 08/22/2016 17:49 [place] COMPARISON: No previous studies available for comparison. INDICATIONS : Embolism. Ileus, hyponatremia. IV CONTRAST: 80 cc Omnipaque 350 (iohexol) IV RADIATION DOSE: 14.24 CTDIvol (mGy) MEDICAL HISTORY : Anorexia, ETOH.Melanoma abdomen LLQ. SURGICAL HISTORY : None. ENCOUNTER: Initial ACUITY: 1 day PAIN SCALE: 2/10 LOCATION: chest TECHNIQUE: Volumetric scanning of the chest was performed using a pulmonary embolism protocol MIP images were re constructed. Using automated exposure control and adjustment of the mA and/or kV according to patien t size, radiation dose was kept as low as reasonably achievable to obtain optimal diagnostic quality images. DICOM format image data is available electronically for review and comparison. Follow-up recommendations for incidentally detected pulmonary nodules are based at a minimum on nodul e size and patient risk factors according to Fleischner Society Guidelines. FINDINGS: The lungs are clear without infiltrate, nodule, or mass except for slight bibasilar atelectasis. The re is no pleural effusion. No appreciable pathological adenopathy is seen within the mediastinum. Th ere is no evidence for PE for technique. CONCLUSION: Unremarkable study. Kayla Downs MD on August 22, 2016 at 17:59 Board Certified Radiologist. This report was verified electronically.
[2016-08-22] MEDS ORDERED: REMOVE OLD PATCH T-DERMAL SCH (21:00)
[2016-08-22] MEDS: PANTOPRAZOLE SODIUM 40 MG VIAL IV PUSH SCH (21:05)
[2016-08-22] MEDS: ENOXAPARIN SODIUM 40 MG/0.4 ML SYRINGE SQ SCH (23:28)
[2016-08-23] VITALS (9 sets, daily range): BP systolic 108–118; BP diastolic 71–78; PULSE 54–67; RESP 15–16; TEMP 97.7–97.9; O2SAT 99–100
[2016-08-23] MEDS: SODIUM CHLORIDE 23.4% INJ 154 MEQ in DEXTROSE 10% INJ 1,000 ML IV SCH ×2 (01:07→12:42)
[2016-08-23 06:19] LABS: BICARBONATE 26.8 MEQ/L (21.0-32.0); INDIRECT BILIRUBIN 0.3 MG/DL (0.0-0.8); MAGNESIUM 2.4 MG/DL (1.5-2.5); POTASSIUM 4.2 MEQ/L (3.5-5.1); TOTAL BILIRUBIN ADULT 0.4 MG/DL (0.2-1.0)
[2016-08-23] MEDS: MORPHINE SULFATE 8 MG/ML INJ IV PUSH PRN ×3 (06:49→14:18)
[2016-08-23] MEDS: MULTIVITAMINS/MINERALS THERAPEUTIC TAB PO SCH (09:00)
[2016-08-23] MEDS ORDERED: REMOVE OLD PATCH T-DERMAL SCH (09:00)
[2016-08-23] MEDS ORDERED: PROPOFOL 200 MG/20 ML AMP IV PUSH ONE (09:29)
--- NOTE | 2016-08-23 09:39 | GIPROC ---
[facility] [address] [facility]. [facility], [address] EGD PROCEDURE REPORT EXAM DATE: 08/23/2016 PATIENT NAME: Dayami Orellana MR #: [id number] BIRTHDATE: 1975 ATTENDING: Brittany Sandra MD ORDER #: [id number] RECORDIST CHIEF: Genevieve Michael and Ya Carson STATUS: inpatient INDICATIONS: The patient is a 40 yr old female here for an EGD due to abdominal pain, abnormal ct PROCEDURE PERFORMED: EGD w/ biopsy MEDICATIONS: None and Per Anesthesia. TOPICAL ANESTHETIC: none CONSENT: The patient understands the risks and benefits of the procedure and understands that these risks include, but are not limited to: sedation, allergic reaction, infection, perforation and/or bleeding. Alternative means of evaluation and treatment include, among others: physical exam, x-rays, and/or surgical intervention. The patient elects to proceed with this endoscopic procedure. medical equipment was checked for proper function. Hand hygiene and appropriate measures for infection prevention was taken. After the risks, benefits and alternatives of the procedure were thoroughly explained, Informed consent was verified, confirmed and timeout was successfully executed by the treatment team. The patient was anesthetized with topical anesthesia and the EC-[id number] (Pedi C) endoscope was introduced through the mouth and advanced to the second portion of the duodenum. Retroflexed views revealed a hiatal hernia The gastroscope was then slowly withdrawn and removed. Duodenitis duodenal bulb-biopsy gastritis antrum-biopsy esophagitis distal esophagus -biopsy. ADVERSE EVENTS: There were no complications. IMPRESSIONS: 1. Duodenitis duodenal bulb-biopsy gastritis antrum-biopsy esophagitis distal esophagus -biopsy 2. Retroflexed views revealed a hiatal hernia RECOMMENDATIONS: 1. Await biopsy results. Biopsy results will not be ready for 7-10 days. If you don't hear from us in two weeks, call our office for biopsy results. 2. Anti-reflux regimen 3. Continue PPI PATIENT CONDITION: stable DISPOSITION: Inpatient REPEAT EXAM: EGD pending biopsy results Brittany Sandra MD eSigned: Brittany Sandra MD 08/23/2016 9:39 AM cc: PATIENT NAME: Dayami Orellana MR#: [id number]
--- NOTE | 2016-08-23 09:43 | GIPROC ---
[facility] [address] [facility]. [facility], [address] COLONOSCOPY PROCEDURE REPORT EXAM DATE: 08/23/2016 PATIENT NAME: Dayami Orellana MR #: [id number] BIRTHDATE: 1975 ENDOSCOPIST: Brittany Sandra MD ORDER #: [id number] PREMIUM CANCELLATION CLERK: Genevieve Michael and Ya Carson STATUS: inpatient INDICATIONS: The patient is a 40 yr old female here for a colonoscopy due to constipation, abnormal ct , abdominal pain PROCEDURE PERFORMED: Colonoscopy, diagnostic MEDICATIONS: None and Per Anesthesia. PREP QUALITY: good PREP TYPE:GoLytely ESTIMATED BLOOD LOSS: None CONSENT: The patient understands the risks and benefits of the procedure and understands that these risks include, but are not limited to: sedation, allergic reaction, infection, perforation and/or bleeding. Alternative means of evaluation and treatment include, among others: physical exam, x-rays, and/or surgical intervention. The patient elects to proceed with this endoscopic procedure. medical equipment was checked for proper function. Hand hygiene and appropriate measures for infection prevention was taken. After the risks, benefits and alternatives of the procedure were thoroughly explained, Informed consent was verified, confirmed and timeout was successfully executed by the treatment team. A digital exam revealed hemorrhoids The Pentax EC-[id number] endoscope was introduced through the anus and advanced to the cecum, which was identified by both the appendix and ileocecal valve. The instrument was then slowly withdrawn as the colon was fully examined. COLON FINDINGS: Normal colonoscopy. Retroflexed views revealed internal hemorrhoids and Retroflexed views revealed small internal hemorrhoids The scope was then completely withdrawn from the patient and the procedure terminated. PROCEDURE WITHDRAWAL TIME:6minutes ADVERSE EVENTS: There were no complications. IMPRESSIONS: 1. Normal colonoscopy 2. Retroflexed views revealed internal hemorrhoids 3. Retroflexed views revealed small internal hemorrhoids 4. Revealed hemorrhoids RECOMMENDATIONS: 1. Benefiber 2 tsp daily 2. Probiotics from any C or health food store 3. High fiber diet 4. If still pain consider hida scan ok to dc home from gi point if tolerated food fu gi 1-2 weeks RECALL: 1. NONE 2. Return 10 years Colonoscopy Brittany Sandra MD eSigned: Brittany Sandra MD 08/23/2016 9:42 AM cc:
[2016-08-23] MEDS: PANTOPRAZOLE SODIUM 40 MG VIAL IV PUSH SCH (11:11)
[2016-08-23] MEDS: SODIUM CHLORIDE 0.9% FLUSH 10 ML FLUSH IV FLUSH SCH (11:12)
[2016-08-23] MEDS: FOLIC ACID 1 MG TAB PO SCH (11:13)
[2016-08-23] MEDS: DOCUSATE SODIUM 50 MG/SENNA 8.6 MG TAB PO SCH (11:13)
[2016-08-23] MEDS: GABAPENTIN 100 MG CAP PO SCH ×3 (11:13→18:03)
[2016-08-23] MEDS: FLUoxetine HCL 20 MG CAP PO SCH (11:13)
[2016-08-23] MEDS: NICOTINE 14 MG/24 HR PATCH T-DERMAL SCH (11:14)
[2016-08-23] MEDS: THIAMINE INJ 100 MG in SODIUM CHLORIDE 0.9% INJ 100 ML IV SCH (11:26)
[2016-08-23] MEDS: SODIUM CHLORIDE 0.9% FLUSH 10 ML FLUSH IV FLUSH PRN (14:17)
[2016-08-23] MEDS: ONDANSETRON HCL 4 MG/2 ML VIAL IVP PRN (14:18)
[2016-08-23] MEDS ORDERED: PROT40TA PO (16:29)
--- NOTE | 2016-08-23 16:29 | HHI.DCPOC ---
Discharge Care Plan Diagnosis: (1) GERD (gastroesophageal reflux disease) (2) Gastroparesis (3) Hypokalemia (4) Hyponatremia (5) Anorexia nervosa with bulimia Your Health Problems Are: Appetite Changes Goals to Promote Your Health * To prevent worsening of your condition and complications * To maintain your health at the optimal level Directions to Meet Your Goals Take your medications as prescribed Follow your dietary instruction Follow activity as directed Keep your appointments as scheduled Take your immunizations and boosters as scheduled If your symptoms worsen call your PCP, if no PCP go to Urgent Care Center or Emergency Room Smoking is Dangerous to Your Health. Avoid second hand smoke Call the 24-hour hour crisis hotline for domestic abuse at Miranda Jacobo. [facility] Aug 23, 2016 16:29
--- NOTE | 2016-08-23 16:42 | HHI.PR ---
Subjective Subjective Remarks mild nausea after lunch, no vomiting minimal epigastric discomfort wants to try eat dinner before dc went of EGD and colonoscopy, tolerated well no cp no sob no anxiety no fever Review of Systems Constitutional Constitutional Remarks 12 point ROS completed, negative except as noted above Vitals/Results Intake & Output 08/22/16 08/22/16 08/23/16 14:59 22:59 06:59 Intake Total 1278 ml Balance 1278 ml Intake Oral 300 ml IV Total 978 ml Vital Signs Vital Signs Date Time Temp Pulse Resp B/P Pulse Ox O2 Delivery O2 Flow Rate FiO2 08/23/16 15:30 97.7 65 15 115/78 99 08/23/16 12:06 97.9 56 16 116/77 100 08/23/16 09:48 57 18 115/75 99 08/23/16 09:38 64 18 106/67 99 08/23/16 09:32 97.6 67 18 103/66 99 08/23/16 08:38 97.9 55 16 108/71 100 08/23/16 04:08 54 08/23/16 04:00 97.9 55 15 118/77 99 08/23/16 00:00 97.8 59 16 108/71 100 08/22/16 23:58 60 08/22/16 20:00 98.5 62 18 122/80 100 08/22/16 19:43 60 CBC/BMP: 08/22/16 0550 08/23/16 0509 Lab Results Laboratory Tests Test 08/23/16 05:09 Sodium Level 146 MEQ/L Potassium Level 4.2 MEQ/L Chloride Level 113 MEQ/L Carbon Dioxide Level 26.8 MEQ/L Anion Gap 6 MEQ/L Blood Urea Nitrogen 3 MG/DL Creatinine 0.79 MG/DL Estimat Glomerular Filtration 80 ML/MIN Rate Random Glucose 99 MG/DL Calcium Level 8.2 MG/DL Phosphorus Level 3.2 MG/DL Magnesium Level 2.4 MG/DL Total Bilirubin 0.4 MG/DL Direct Bilirubin 0.1 MG/DL Indirect Bilirubin 0.3 MG/DL Aspartate Amino Transf 15 U/L (AST/SGOT) Alanine Aminotransferase 15 U/L (ALT/SGPT) Alkaline Phosphatase 66 U/L Total Protein 5.1 GM/DL Albumin 2.5 GM/DL Physical Exam General General Appearance: Well Developed, Well Nourished, No Acute Distress, Comfortable Eyes Eye Exam: Pupils Equal, Pupils Reactive Ears & Nose Ears & Nose Exam: Nasal Mucosa [place] Throat Throat Exam: Oral Mucosa [place] & Moist Neck Neck Exam: Neck Supple, Trachea Midline Pulmonary Resp Exam: Clear Bilaterally, No Distress Cardiology CV Exam: Regular, Good Perfusion Gastrointestinal/Abdomen GI Exam: Soft, Bowel Sounds Present, Non-Distended Musculoskeletal MS Exam: Joints Intact Integumentary Skin Exam: Warm, Dry Extremeties Extremities Exam: No Edema, Pedal Pulses Palpable Neurologic Neuro Exam: Alert, Awake, Oriented, Speech Clear, Moving All Extremities, No Focal Deficits Psychiatric Psych Exam: Appropriate Responses VTE Prophylaxis VTE Prophylaxis Device: SCDs PUD Prophylasis PUD Prophylaxis: Protonix Assessment/Plan Assessment/Plan Assessment Nausea and vomiting Abdominal pain Pleuritic chest pain Cramps Alcohol intoxication Hyponatremia Hypoglycemia Limited area of ileus and the left upper quadrant on CT scan of the abdomen Alcoholism Tobacco abuse Management appreciate GI input S/P EGD and colonoscopy EGD esophagitis, duodenitis, continue PPI Colonoscopy int/ext hemorrhoids, recommend benefiber and probiotics tolerating regular diet well doing okay cleared by GI continue Thiamine, folic acid CTA negative for PE Recommended to quit both smoking and drinking Nicotine patch PPI for GI prophylaxis DVT prophylaxis with low-dose heparin Overall improved cleared by GI will let her eat dinner and if she tolerates, plan to dc Instructed to quit smoking and drinking F/U GI 7-10 days Diet-heart healthy Activity-as tolerated. Discussed with patient Discussed with nurse Discussed with Dr. Moise This patient was seen by myself and Dr. Moise, this note is written on his behalf. Discharge Minutes: 40 Miranda Jacobo Aug 23, 2016 16:42
== END 2016-08-23 18:44 | disposition home or self-care (01) ==
LOC: NEPD 17:50 → NEDA 22:12 → NEPFCDU 08-22 01:35
PROVIDERS: ADMIT Specialist; ATTEND Specialist
DX: R11.2 Nausea with vomiting, unspecified (principal); K21.0 Gastro-esophageal reflux disease with esophagitis; K31.84 Gastroparesis; E87.6 Hypokalemia; F50.00 Anorexia nervosa, unspecified; F50.2 Bulimia nervosa; E87.1 Hypo-osmolality and hyponatremia; F10.229 Alcohol dependence with intoxication, unspecified; E16.2 Hypoglycemia, unspecified; K56.7 Ileus, unspecified; M54.9 Dorsalgia, unspecified; R07.1 Chest pain on breathing; K29.50 Unspecified chronic gastritis without bleeding; K74.60 Unspecified cirrhosis of liver; R53.1 Weakness; R11.0 Nausea; R00.2 Palpitations; K44.9 Diaphragmatic hernia without obstruction or gangrene; K59.00 Constipation, unspecified; K29.80 Duodenitis without bleeding; K64.8 Other hemorrhoids; R00.0 Tachycardia, unspecified; I95.9 Hypotension, unspecified; J44.9 Chronic obstructive pulmonary disease, unspecified; G43.909 Migraine, unspecified, not intractable, without status migrainosus; F31.9 Bipolar disorder, unspecified; F41.9 Anxiety disorder, unspecified; M19.90 Unspecified osteoarthritis, unspecified site; F17.210 Nicotine dependence, cigarettes, uncomplicated; Y90.6 Blood alcohol level of 120-199 mg/100 ml; Z79.899 Other long term (current) drug therapy; Z85.820 Personal history of malignant melanoma of skin; Z86.14 Personal history of Methicillin resistant Staphylococcus aureus infection
CPT/HCPCS: 00740; 00810; 43239; 45378; 71010; 71275; 74177; 76937; 80048; 80053; 80076; 80307; 81001; 82533; 82550; 83690; 83735; 84100; 84484; 84702; 84703; 85025; 85610; 85730; 88305; 88312; 93005; 96374; 96375; 99285; C9113; G0378; J1650; J1885; J2270; J2405; J3411; J7030; Q9967

== ENCOUNTER 2016-11-23 12:18 | Inpatient (IN) | payer OTHER ==
[~2016-11-23] VITALS: Ht 157.5 cm; Wt 31.7 kg
[~2016-11-23 12:18] MED LIST changes: -ALPR.25 PO; +CLON0.5T PO; +PROT40TA PO; -RISP0.5T20 PO; -TIOT1AER INH; -ZOFR4TAB PO
[2016-11-23 13:05] VITALS: BP 114/72; PULSE 78; RESP 16; TEMP 98; O2SAT 100
[2016-11-23] MEDS ORDERED: HYDR-3580 PO (13:22)
[2016-11-23] MEDS ORDERED: LURA40 PO (13:22)
--- NOTE | 2016-11-23 13:46 | PD ---
HPI Chief Complaint: Psychiatric Symptoms Time Seen by Provider: 13:42 Travel History International Travel<30 days: No Contact w/Intl Traveler<30days: No Traveled to known affect area: No History of Present Illness HPI 41-year-old female with PMH of anorexia, COPD, gastroparesis, chronic back pain presents to the ED under [facility] act by [facility] for psychiatric evaluation. The patient states that she has suffered from anorexia since she was a teenager. She states that recently she has relapsed and has been restricting calories. She states that when she eats she feels ill and vomits. She denies hematemesis. She states that she went to [facility] in [facility] to receive treatment. The triage nurse was concerned that the patient may have medical problems and require a feeding tube. She was placed under BA and sent to the ED. On presentation the patient denies suicidal or homicidal ideation. She denies fever, chills, abdominal pain, dysuria. She states that she is compliant with her daily medications. She states that she recently lost her insurance. PFSH Past Medical History Hx Anticoagulant Therapy: No Anemia: Yes Arthritis: Yes Asthma: No Autoimmune Disease: No Blood Disorders: No Bipolar Disorder: Yes Anxiety: Yes Depression: Yes Heart Rhythm Problems: No Cancer: Yes ( melanoma abdomen) Cardiovascular Problems: No High Cholesterol: No Chemotherapy: No Chest Pain: No Congestive Heart Failure: No Cirrhosis: Yes (DX WITH FATTY LIVER 10-15 YEARS AGO) COPD: No Cerebrovascular Accident: No Developmental Delay: No Diabetes: No Diminished Hearing: No Endocrine: No Gastrointestinal Disorders: Yes (DELAYED GASTRIC EMPTYING, ) GERD: Yes Genitourinary: No Hiatal Hernia: Yes Hypertension: No Immune Disorder: No Implanted Vascular Access Dvce: No Insomnia: Yes Kidney Stones: No Musculoskeletal: Yes (few months ago) Neurologic: Yes Psychiatric: Yes (anorexia and bulimia) Reproductive: No Respiratory: Yes (COPD) Integumentary: Yes (07/2010- MRSA TO BILATERAL ARMS) Immunizations Current: Yes Migraines: Yes Myocardial Infarction: No Pancreatitis: Yes Radiation Therapy: No Renal Failure: No Seizures: Yes (last night questionable ) Sleep Apnea: No Thyroid Disease: No Ulcer: Yes Tetanus Vaccination: < 5 Years Influenza Vaccination: Yes ?: Not : 3 Para: 1 Miscarriage: 1 : 1 Past Surgical History Abdominal Surgery: No AICD: No Arteriovenous Shunt: No Cardiac Surgery: No Ear Surgery: No Endocrine Surgery: No Eye Surgery: Yes (PT STATES SHE HAD EYE SURGERY FOR "[employer]" WHEN SHE WAS 3 YEARS OLD.) Genitourinary Surgery: No Gynecologic Surgery: No Hysterectomy: No Insulin Pump: No Joint Replacement: No Neurologic Surgery: No Oral Surgery: No Pacemaker: No Thoracic Surgery: No Social History Alcohol Use: Yes (CHRONIC ALCOHOLIC; just detoxed ) Tobacco Use: Yes (PPD) Substance Use: No Allergies-Medications (Allergen,Severity, Reaction): Coded Allergies: lithium (Unverified Allergy, Severe, Seizures, 11/23/16) *MDRO Multi-Drug Resistant Organism (Verified Adverse Reaction, Unknown, Cleared 01/12/16, 11/23/16) MRSA (skin) - 07/2010 MRSA PCR Screens NEGATIVE - 12/10/15 & 01/12/16 Cleared per Infection Control Reported Meds & Prescriptions Reported Meds & Active Scripts Active Protonix (Pantoprazole Sodium) 40 Mg Tab 40 Mg PO DAILY Reported Hydrocodone-Acetaminophen 7.5-325 mg Tab 1 Tab PO Q4H PRN Latuda (Lurasidone) 40 Mg Tab 40 Mg PO HS Clonazepam 0.5 Mg Tab 0.5 Mg PO TID Trazodone (Trazodone HCl) 300 Mg Tab 200 Mg PO HS Duoneb (Ipratropium-Albuterol Neb) 0.5-2.5 Mg/3 Ml Neb 1 Nebule INH PRN Gabapentin 100 Mg Cap 100 Mg PO TID Prozac (Fluoxetine HCl) 20 Mg Cap 60 Mg PO DAILY Review of Systems Except as stated in HPI: all other systems reviewed are Neg Physical Exam Narrative GENERAL: Thin, dry appearing white female in no acute distress. SKIN: Focused skin assessment pale, warm, dry. HEAD: Normocephalic. EYES: No scleral icterus. No injection or drainage. NECK: Supple, trachea midline. No JVD or lymphadenopathy. CARDIOVASCULAR: Regular rate and rhythm without murmurs, gallops, or rubs. RESPIRATORY: Breath sounds clear and equal bilaterally. No accessory muscle use. GASTROINTESTINAL: Abdomen soft, non-tender, nondistended. Hypoactive bowel sounds. MUSCULOSKELETAL: No cyanosis, or edema. BACK: Nontender without obvious deformity. No CVA tenderness. Data Data Last Documented VS Vital Signs Date Time Temp Pulse Resp B/P (MAP) Pulse Ox O2 Delivery O2 Flow Rate FiO2 11/23/16 16:08 58 18 136/80 (98) 99 11/23/16 13:05 98.0 Orders Orders Complete Blood Count With Diff (11/23/16 13:43) Comprehensive Metabolic Panel (11/23/16 13:43) Urinalysis - C+S If Indicated (11/23/16 13:43) Ed Urine Pregnancytest Poc (11/23/16 13:43) Psych Screen (11/23/16 13:43) Drug Screen, Random Urine (11/23/16 13:43) Alcohol (Ethanol) (11/23/16 13:43) Vascular Access Team Consult/P PRN (11/23/16 14:16) Vascular Poc Ultrasound (11/23/16 ) Sodium Chlorid 0.9% 500 Ml Inj (Ns 500 M (11/23/16 14:45) Ondansetron Inj (Zofran Inj) (11/23/16 14:45) Magnesium (Mg) (11/23/16 15:40) Sodium Chlorid 0.9% 500 Ml Inj (Ns 500 M (11/23/16 15:45) Electrocardiogram (11/23/16 ) Admit Order (Ed Use Only) (11/23/16 17:32) Labs Laboratory Tests Test 11/23/16 14:05 White Blood Count 5.5 TH/MM3 Red Blood Count 4.19 MIL/MM3 Hemoglobin 13.3 GM/DL Hematocrit 39.8 % Mean Corpuscular Volume 95.0 FL Mean Corpuscular Hemoglobin 31.6 PG Mean Corpuscular Hemoglobin Concent 33.3 % Red Cell Distribution Width 13.8 % Platelet Count 201 TH/MM3 Mean Platelet Volume 7.4 FL Neutrophils (%) (Auto) 35.9 % Lymphocytes (%) (Auto) 51.3 % Monocytes (%) (Auto) 6.7 % Eosinophils (%) (Auto) 3.5 % Basophils (%) (Auto) 2.6 % Neutrophils # (Auto) 2.0 TH/MM3 Lymphocytes # (Auto) 2.8 TH/MM3 Monocytes # (Auto) 0.4 TH/MM3 Eosinophils # (Auto) 0.2 TH/MM3 Basophils # (Auto) 0.1 TH/MM3 CBC Comment DIFF FINAL Differential Comment Urine Color YELLOW Urine Turbidity HAZY Urine pH 6.0 Urine Specific [place] 1.010 Urine Protein NEG mg/dL Urine Glucose (UA) NEG mg/dL Urine Ketones TRACE mg/dL Urine Occult Blood NEG Urine Nitrite NEG Urine Bilirubin NEG Urine Urobilinogen LESS THAN 2.0 MG/DL Urine Leukocyte Esterase NEG Urine RBC 1 /hpf Urine WBC LESS THAN 1 /hpf Urine Squamous Epithelial Cells 4 /hpf Microscopic Urinalysis Comment CULT NOT INDICATED Blood Urea Nitrogen 3 MG/DL Creatinine 0.94 MG/DL Random Glucose 81 MG/DL Total Protein 7.9 GM/DL Albumin 4.2 GM/DL Calcium Level 9.2 MG/DL Alkaline Phosphatase 97 U/L Aspartate Amino Transf (AST/SGOT) 35 U/L Alanine Aminotransferase (ALT/SGPT) 31 U/L Total Bilirubin 0.4 MG/DL Sodium Level 129 MEQ/L Potassium Level 3.9 MEQ/L Chloride Level 97 MEQ/L Carbon Dioxide Level 18.9 MEQ/L Anion Gap 13 MEQ/L Estimat Glomerular Filtration Rate 65 ML/MIN Magnesium Level 1.9 MG/DL Urine Opiates Screen NEG Urine Barbiturates Screen NEG Urine Amphetamines Screen NEG Urine Benzodiazepines Screen POS Urine Cocaine Screen NEG Urine Cannabinoids Screen NEG Ethyl Alcohol Level LESS THAN 3 MG/DL MDM Medical Decision Making Medical Screen Exam Complete: Yes Emergency Medical Condition: Yes Differential Diagnosis metabolic derangement versus dehydration versus malnutrition versus Adjustment disorder versus anxiety versus bipolar versus depression versus dementia versus electrolyte disorder versus malingering versus mood disorder versus ODD versus psychosis versus PTSD versus schizophrenia versus schizoaffective disorder versus substance-induced mood disorder versus other Narrative Course 41-year-old female with PMH of anorexia, COPD, gastroparesis, chronic back pain presents to the ED under [facility] act by [facility] for psychiatric evaluation. The patient states that she has suffered from anorexia since she was a teenager. Endorses recent calorie restriction, purging after eating. [facility] to [facility] today in [facility] to receive treatment. The triage nurse was concerned that the patient may have medical problems and require a feeding tube. She was placed under BA and sent to the ED. On presentation the patient denies suicidal or homicidal ideation. Vitals reviewed. Physical exam reveals a thin, petite white female in no acute distress. Abdomen soft, nontender. No CVA tenderness. No lower extremity edema. No concerning abnormalities a CBC, CMP, UA. Tox screen positive for benzodiazepines. The patient is medically cleared and awaiting psychiatric evaluation and recommendations. Anahi Lazo Nov 23, 2016 13:46
[2016-11-23] MEDS ORDERED: SODIUM CHLORID 0.9% 500 ML INJ 500 ML IV ONE ×2 (14:45→15:45)
[2016-11-23] MEDS ORDERED: ONDANSETRON HCL 4 MG/2 ML VIAL IV PUSH ONE (14:45)
[2016-11-23 14:50] LABS: BASOPHIL # 0.1 TH/MM3 (0-0.2); BASOPHIL % 2.6 % (0.0-2.0); EOSINOPHIL # 0.2 TH/MM3 (0-0.4); EOSINOPHIL % 3.5 % (0.0-4.0); HEMATOCRIT 39.8 % (35.0-46.0); HEMO FLAGS DIFF FINAL; LYMPH % 51.3 % (9.0-44.0); LYMPHOCYTE # 2.8 TH/MM3 (1.0-4.8); MEAN CORPUSCULAR HEMOGLOBIN 31.6 PG (27.0-34.0); MEAN CORPUSCULAR HGB CONC 33.3 % (32.0-36.0); MONO % 6.7 % (0.0-8.0); NEUT % 35.9 % (16.0-70.0); PLATELET COUNT 201 TH/MM3 (150-450); RED BLOOD COUNT 4.19 MIL/MM3 (4.00-5.30); RED CELL DISTRIBUTION WIDTH 13.8 % (11.6-17.2); WHITE BLOOD COUNT 5.5 TH/MM3 (4.0-11.0)
[2016-11-23 14:54] LABS: BLOOD, URINE NEG (NEG); COMMENT (UR) CULT NOT INDICATED; CULTURE IF INDICATED CULT NOT INDICATED; GLUCOSE,URINE NEG (NEG); KETONE, URINE TRACE mg/dL (NEG); NITRITE,URINE NEG (NEG); SQUAMOUS EPITHELIAL CELL URINE 4 /hpf (0-5); URINE COLOR YELLOW (YELLW/STRAW)
[2016-11-23 15:00] LABS: ANION GAP 13 MEQ/L (5-15); AST (GOT) 35 U/L (15-37); BICARBONATE 18.9 MEQ/L (21.0-32.0); BLOOD UREA NITROGEN 3 MG/DL (7-18); CHLORIDE 97 MEQ/L (98-107); GLOMERULAR FILTRATION RATE 65 ML/MIN (>89); POTASSIUM 3.9 MEQ/L (3.5-5.1); SODIUM (NA) 129 MEQ/L (136-145)
[2016-11-23 15:01] LABS: ALT (GPT) 31 U/L (10-53)
[2016-11-23 15:03] LABS: ALKALINE PHOSPHATASE 97 U/L (45-117); TOTAL BILIRUBIN ADULT 0.4 MG/DL (0.2-1.0)
[2016-11-23 15:12] LABS: ALCOHOL LESS THAN 3 MG/DL (0-5)
--- NOTE | 2016-11-23 15:40 | PD ---
Physical Exam Narrative I, Dr. Thomas, have reviewed the advance practice practitioner's documentation and am in agreement, met with the patient face to face, made the diagnosis, and the medical decision making was done by me. *My assessment and Findings: Anorexia nervosa vs. electrolyte abnormality vs. dehydration 41yo F with long time history of anorexia was damon acted because it was believe that "she is unable to appreciate the gravity of the medical consequences related to her current behaviors". Pt also has history of alcohol abuse. Labs reviewed, no leukocytosis. H/H stable. Hyponatremia at 129. Pt has had this before and sodium was 126, 131 on 08/21/16 and 08/22/16. CO2 level is slightly decreased at 18.9 as well. Pt is thin appearing with no tenderness in her abdomen. Pt given zofran and 1 liter of NS IVF. Alcohol negative. No signs of alcohol withdrawal at this time. Vital signs stable. I feel that this behavior stems from a psychiatric origin and needs to be evaluated by psychiatry. UA negative for leukocyte. Utox positive for benzodiazepine. Data Data Last Documented VS Vital Signs Date Time Temp Pulse Resp B/P (MAP) Pulse Ox O2 Delivery O2 Flow Rate FiO2 11/23/16 16:08 58 18 136/80 (98) 99 11/23/16 13:05 98.0 Orders Orders Complete Blood Count With Diff (11/23/16 13:43) Comprehensive Metabolic Panel (11/23/16 13:43) Urinalysis - C+S If Indicated (11/23/16 13:43) Ed Urine Pregnancytest Poc (11/23/16 13:43) Psych Screen (11/23/16 13:43) Drug Screen, Random Urine (11/23/16 13:43) Alcohol (Ethanol) (11/23/16 13:43) Vascular Access Team Consult/P PRN (11/23/16 14:16) Vascular Poc Ultrasound (11/23/16 ) Sodium Chlorid 0.9% 500 Ml Inj (Ns 500 M (11/23/16 14:45) Ondansetron Inj (Zofran Inj) (11/23/16 14:45) Magnesium (Mg) (11/23/16 15:40) Sodium Chlorid 0.9% 500 Ml Inj (Ns 500 M (11/23/16 15:45) Electrocardiogram (11/23/16 ) Admit Order (Ed Use Only) (11/23/16 17:32) Labs Laboratory Tests Test 11/23/16 14:05 White Blood Count 5.5 TH/MM3 Red Blood Count 4.19 MIL/MM3 Hemoglobin 13.3 GM/DL Hematocrit 39.8 % Mean Corpuscular Volume 95.0 FL Mean Corpuscular Hemoglobin 31.6 PG Mean Corpuscular Hemoglobin Concent 33.3 % Red Cell Distribution Width 13.8 % Platelet Count 201 TH/MM3 Mean Platelet Volume 7.4 FL Neutrophils (%) (Auto) 35.9 % Lymphocytes (%) (Auto) 51.3 % Monocytes (%) (Auto) 6.7 % Eosinophils (%) (Auto) 3.5 % Basophils (%) (Auto) 2.6 % Neutrophils # (Auto) 2.0 TH/MM3 Lymphocytes # (Auto) 2.8 TH/MM3 Monocytes # (Auto) 0.4 TH/MM3 Eosinophils # (Auto) 0.2 TH/MM3 Basophils # (Auto) 0.1 TH/MM3 CBC Comment DIFF FINAL Differential Comment Urine Color YELLOW Urine Turbidity HAZY Urine pH 6.0 Urine Specific [place] 1.010 Urine Protein NEG mg/dL Urine Glucose (UA) NEG mg/dL Urine Ketones TRACE mg/dL Urine Occult Blood NEG Urine Nitrite NEG Urine Bilirubin NEG Urine Urobilinogen LESS THAN 2.0 MG/DL Urine Leukocyte Esterase NEG Urine RBC 1 /hpf Urine WBC LESS THAN 1 /hpf Urine Squamous Epithelial Cells 4 /hpf Microscopic Urinalysis Comment CULT NOT INDICATED Blood Urea Nitrogen 3 MG/DL Creatinine 0.94 MG/DL Random Glucose 81 MG/DL Total Protein 7.9 GM/DL Albumin 4.2 GM/DL Calcium Level 9.2 MG/DL Alkaline Phosphatase 97 U/L Aspartate Amino Transf (AST/SGOT) 35 U/L Alanine Aminotransferase (ALT/SGPT) 31 U/L Total Bilirubin 0.4 MG/DL Sodium Level 129 MEQ/L Potassium Level 3.9 MEQ/L Chloride Level 97 MEQ/L Carbon Dioxide Level 18.9 MEQ/L Anion Gap 13 MEQ/L Estimat Glomerular Filtration Rate 65 ML/MIN Magnesium Level 1.9 MG/DL Urine Opiates Screen NEG Urine Barbiturates Screen NEG Urine Amphetamines Screen NEG Urine Benzodiazepines Screen POS Urine Cocaine Screen NEG Urine Cannabinoids Screen NEG Ethyl Alcohol Level LESS THAN 3 MG/DL MDM Supervised Visit with TD: Yes Interpretation(s) EKG: Sinus bradycardia at 50bpm. Normal axis. TWI V2. QTc 429ms. Diagnosis Primary Impression: ANOREXIA NERVOSA, UNSPECIFIED Beth Thomas DO Nov 23, 2016 15:40
[2016-11-23 16:08] VITALS: BP 136/80; PULSE 58; RESP 18; O2SAT 99
[2016-11-23] MEDS: clonazePAM 0.5 MG TAB PO SCH (17:42)
[2016-11-23] MEDS: GABAPENTIN 100 MG CAP PO SCH (17:42)
[2016-11-23] MEDS ORDERED: ACETAMINOPHEN 325 MG TAB PO PRN (17:45)
[2016-11-23] MEDS ORDERED: ALUMINUM/MAGNESIUM/SIMETH 30 ML CUP PO PRN (17:45)
[2016-11-23] MEDS ORDERED: LORazepam 0.5 MG TAB PO ONE (17:45)
[2016-11-23] MEDS ORDERED: MAGNESIUM HYDROXIDE SUSP 30 ML CUP PO PRN (17:45)
[2016-11-23] MEDS ORDERED: LORazepam 2 MG/ML VIAL IM PRN ×2 (17:45)
[2016-11-23] MEDS ORDERED: clonazePAM 0.5 MG TAB PO ONE (17:45)
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
[2016-11-23] MEDS: AMPICILLIN INJ 2,000 MG in SODIUM CHLORIDE 0.9% INJ 100 ML IV SCH ×2 (19:00→23:00)
[2016-11-23 19:24] VITALS: BP 150/90; PULSE 56; RESP 18; O2SAT 97
[2016-11-23] MEDS: ACETAMINOPHEN/HYDROcodone 325 MG/7.5 MG TAB PO PRN ×2 (19:39→21:00)
[2016-11-23] MEDS: LORazepam 0.5 MG TAB PO PRN (21:04)
[2016-11-23] MEDS: traZODone HCL 100 MG TAB PO SCH (21:05)
[2016-11-23] MEDS: LURASIDONE 40 MG TAB PO SCH (21:05)
[2016-11-23 22:14] VITALS: BP 139/88; PULSE 57; RESP 16; TEMP 98.2; O2SAT 98
[2016-11-24] MEDS: AMPICILLIN INJ 2,000 MG in SODIUM CHLORIDE 0.9% INJ 100 ML IV SCH ×3 (04:00→12:40)
[2016-11-24 06:12] VITALS: PULSE 57; RESP 16; TEMP 98.5; O2SAT 96
[2016-11-24] MEDS: ACETAMINOPHEN/HYDROcodone 325 MG/7.5 MG TAB PO PRN ×2 (07:54→14:19)
[2016-11-24] MEDS: FLUoxetine HCL 20 MG CAP PO SCH (10:11)
[2016-11-24] MEDS: clonazePAM 0.5 MG TAB PO SCH ×3 (10:12→18:00)
[2016-11-24] MEDS: GABAPENTIN 100 MG CAP PO SCH ×3 (10:12→18:00)
[2016-11-24] MEDS: PANTOPRAZOLE SOD 40 MG DELAYED RELEASE TAB PO SCH (10:12)
--- NOTE | 2016-11-24 13:45 | EKG ---
Date Performed: 11/24/2016 Time Performed: 07:44:17 PTAGE: 41 years EKG: SINUS BRADYCARDIA BORDERLINE ECG PREVIOUS TRACING : 11/23/2016 16.05 DOCTOR: Horace Esparza Interpretating Date/Time 11/24/2016 13:41:49
--- NOTE | 2016-11-24 14:17 | EKG ---
Date Performed: 11/23/2016 Time Performed: 16:05:28 PTAGE: 41 years EKG: SINUS BRADYCARDIA BORDERLINE ECG PREVIOUS TRACING : 08/21/2016 19.01 DOCTOR: Horace Esparza Interpretating Date/Time 11/24/2016 14:14:26
--- NOTE | 2016-11-24 14:50 | PD.CONS ---
HPI Service [facility] Hospitalists Consult Requested By Psychiatry. Reason for Consult Medical management. Primary Care Physician Shayne John M.D. Diagnoses: History of Present Illness Ms. Orellana is a pleasant 41 year old female with a long history of eating disorder, failure to thrive, COPD who was admitted under damon act to psychiatry service due to major depression, inability to eat without nausea, vomiting. Hospitalist service was consulted for medical management. Patient does not have any acute medical concerns. She denies any dysphagia, odynophagia. She reports early satiety, lack of motivation to eat. When she does eat, she takes a long time to drink a bottle of Ensure or a small sandwich. Denies any chest pain, SOB, fever, chills. Denies any changes in bowel or bladder habits. Review of Systems Except as stated in HPI: all other systems reviewed are Neg Past Family Social History Allergies: Coded Allergies: lithium (Unverified Allergy, Severe, Seizures, 11/23/16) *MDRO Multi-Drug Resistant Organism (Verified Adverse Reaction, Unknown, Cleared 01/12/16, 11/23/16) MRSA (skin) - 07/2010 MRSA PCR Screens NEGATIVE - 12/10/15 & 01/12/16 Cleared per Infection Control Past Medical History COPD Osteoporosis Gastroparesis Failure to thrive Severe depression Eating disorder Past Surgical History Malignant melanoma removal 6 years ago Active Ordered Medications Current Medications Medications (Trade) Dose Ordered Sig/Susanna Route Start Time Stop Time Status Last Admin (Ativan) 1 mg Q6H PRN PO 11/23/16 17:45 (Ativan Inj) 1 mg Q6H PRN IM 11/23/16 17:45 (Ativan) 0.5 mg Q12H PRN PO 11/23/16 17:45 11/24/16 20:45 (Ativan Inj) 0.5 mg Q12H PRN IM 11/23/16 17:45 (Tylenol) 650 mg Q4H PRN PO 11/23/16 17:45 (Milk Of Magnesia Liq) 30 ml DAILY PRN PO 11/23/16 17:45 (Mag-Al Plus Susp Liq) 30 ml Q6H PRN PO 11/23/16 17:45 (KlonoPIN) 0.5 mg TID PO 11/23/16 18:00 11/24/16 18:00 (PROzac) 60 mg DAILY PO 11/24/16 09:00 11/24/16 10:11 (Neurontin) 100 mg TID PO 11/23/16 18:00 11/24/16 18:00 (Luquillo 7.5-325 Mg) 1 tab Q4H PRN PO 11/23/16 17:45 11/24/16 14:19 (Latuda) 40 mg HS PO 11/23/16 21:00 11/24/16 20:45 (Protonix) 40 mg DAILY PO 11/24/16 09:00 11/24/16 10:12 (Desyrel) 200 mg HS PO 11/23/16 21:00 11/24/16 20:45 (Habitrol 14 Mg Patch.24 Hr) 1 patch DAILY T-DERMAL 11/24/16 15:00 11/24/16 16:41 Miscellaneous Information 1 DAILY T-DERMAL 11/24/16 15:00 11/24/16 16:41 (Zofran Inj) 4 mg Q6H PRN IV PUSH 11/24/16 15:00 11/24/16 16:50 Family History Mom - hypothyroidism, HTN, sleep apnea. Social History Patient denies current use of tobacco. Used to drink alcohol but she does not drink anymore. Denies using illicit drugs. Physical Exam Vital Signs Vital Signs Date Time Temp Pulse Resp B/P (MAP) Pulse Ox O2 Delivery O2 Flow Rate FiO2 11/24/16 06:12 98.5 57 16 96 11/23/16 22:14 98.2 57 16 139/88 (105) 98 11/23/16 19:50 11/23/16 19:24 56 18 150/90 (110) 97 Room Air 11/23/16 16:08 58 18 136/80 (98) 99 Physical Exam GENERAL: Cachectic appearing female. NAD. SKIN: No rashes, ecchymoses or lesions. Warm and dry. HEAD: Atraumatic. Normocephalic. No temporal or scalp tenderness. EYES: Pupils equal round and reactive. No injection or drainage. ENT: Nose without bleeding, purulent drainage or septal hematoma. Airway patent. NECK: Trachea midline. No lymphadenopathy. Supple, nontender, no meningeal signs. CARDIOVASCULAR: Regular rate and rhythm without murmurs, gallops, or rubs. No JVD. RESPIRATORY: Clear to auscultation. Breath sounds equal bilaterally. No wheezes , rales, or rhonchi. GASTROINTESTINAL: Abdomen soft, non-tender, nondistended. No guarding. MUSCULOSKELETAL: Extremities without clubbing, cyanosis, or edema. NEUROLOGICAL: Awake and alert. Cranial nerves II through XII intact. No focal neurological deficits. Normal speech. Result Diagram: 11/23/16140411/23/161404 Assessment and Plan Problem List: (1) Depression, major, severe recurrence ICD Code: F33.2 - Major depressive disorder, recurrent severe without psychotic features (2) Gastroparesis ICD Code: K31.84 - Gastroparesis Status: Chronic Assessment and Plan Ms. Orellana is a pleasant 41 year old female with a history of COPD, eating disorder who was admitted to the psychiatry floor under damon act due to major depression, failure to thrive. - Please note that an Echocardiogram was ordered by mistake. Echo has been completed which does not show any remarkable findings. EF 50%. Discussed with RN. - Major depression - Management per psychiatry. - Eating disorder - possibly anorexia with bulimia - Long standing problem. - Pantograph Watcher has been consulted. - Patient asks about feeding tube. I do not think placing a feeding tube is a good solution. - Psychiatric medications as well as counselling would be reasonable. - Change diet to regular diet with Ensure supplement. - Gastroparesis - Per patient, she has a history of gastroparesis which could explain nausea , vomiting. - It would be worthwhile to try Reglan which would be the treatment for gastroparesis as well as N/V. - Will start patient on Reglan PO 10mg ACHS. Full code. Ambulation. Thank you for the consult. We will continue to follow this patient with you. Mervat Max DO Nov 24, 2016 14:50
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
[2016-11-24] MEDS: NICOTINE 14 MG/24 HR PATCH T-DERMAL SCH (16:41)
[2016-11-24] MEDS: REMOVE OLD PATCH T-DERMAL SCH (16:41)
[2016-11-24] MEDS: ONDANSETRON HCL 4 MG/2 ML VIAL IV PUSH PRN (16:50)
--- NOTE | 2016-11-24 17:05 | ECHRPT ---
Indication: S/P TAVR, SEPSIS, ENDOCARDITIS CONCLUSIONS Normal left ventricular size. Wall thickness is normal. The left ventricular systolic function is low normal with an estimated ejection fraction of 50%. No regional wall motion abnormalities are present. Trace mitral valve regurgitation. There is trace tricuspid valve regurgitation. The estimated pulmonary arterial pressure is 32 mmHg. Poorly visualized. Grossly normal aortic valvular function. BP: 150 / 90 HR: 78 Rhythm: Sinus MEASUREMENTS (Male / Female) Normal Values Technical Quality:Poor M-MODE LV Diastolic Diameter MM 4.5 cm 4.2 - 5.9 / 3.9 - 5.3 cm LV Systolic Diameter MM 3.0 cm LV Ejection Fraction MM Teich 63.8 % LV Cardiac Index MM Teich 3997.3 cm/minm IVS Diastolic Thickness MM 1.0 cm 0.6 - 1.0 / 0.6 - 0.9 cm LVPW Diastolic Thickness MM 1.0 cm 0.6 - 1.0 / 0.6 - 0.9 cm LV Relative Wall Thickness MM 0.4 0.24 - 0.42 / 0.22 - 0.42 LV Mass Index MM 130.1 g/m 49 - 115 / 43 - 95 g/m DOPPLER AV Peak Velocity 99.3 cm/s AV Peak Gradient 3.9 mmHg AV Mean Gradient 2.0 mmHg AV Velocity Time Integral 20.4 cm LVOT Peak Velocity 58.7 cm/s LVOT Peak Gradient 1.4 mmHg LVOT Velocity Time Integral 11.7 cm Mitral E Point Velocity 64.2 cm/s Mitral A Point Velocity 51.3 cm/s Mitral E to A Ratio 1.3 LV E' Lateral Velocity 9.3 cm/s Mitral E to LV E' Lateral Ratio 6.9 LV E' Septal Velocity 10.4 cm/s Mitral E to LV E' Septal Ratio 6.2 TR Peak Velocity 232.0 cm/s TR Peak Gradient 21.5 mmHg Right Atrial Pressure 10.0 mmHg Pulmonary Artery Systolic Pressu 31.5 mmHg Right Ventricular Systolic Press 31.5 mmHg FINDINGS LEFT VENTRICLE Normal left ventricular size. Wall thickness is normal. The left ventricular systolic function is low normal with an estimated ejection fraction of 50%. No regional wall motion abnormalities are present. RIGHT VENTRICLE Normal right ventricular size and systolic function. LEFT ATRIUM The left atrial size is normal. RIGHT ATRIUM The right atrial size is normal. ATRIAL SEPTUM Normal atrial septal thickness without atrial level shunting by limited color doppler interrogation. AORTA The aortic root and proximal ascending aorta are normal in size on limited imaging. MITRAL VALVE Trace mitral valve regurgitation. AORTIC VALVE Poorly visualized. Grossly normal aortic valvular function. TRICUSPID VALVE There is trace tricuspid valve regurgitation. The estimated pulmonary arterial pressure is 32 mmHg. PULMONARY VALVE No pulmonary valve regurgitation or stenosis. VESSELS The inferior vena cava is normal in size. PERICARDIUM No pericardial effusion. Artie Snow MD (Electronically Signed) Final Date:24 November 2016 17:04
[2016-11-24 17:55] VITALS: BP 120/84; PULSE 61; RESP 15; TEMP 98.3; O2SAT 99
[2016-11-24 19:12] LABS: AUTOMATED NEUTROPHIL # 2.9 TH/MM3 (1.8-7.7); BASOPHIL # 0.1 TH/MM3 (0-0.2); BASOPHIL % 1.4 % (0.0-2.0); EOSINOPHIL # 0.4 TH/MM3 (0-0.4); EOSINOPHIL % 5.5 % (0.0-4.0); HEMATOCRIT 34.1 % (35.0-46.0); LYMPH % 45.1 % (9.0-44.0); LYMPHOCYTE # 3.1 TH/MM3 (1.0-4.8); MEAN CORPUSCULAR HEMOGLOBIN 31.7 PG (27.0-34.0); MEAN CORPUSCULAR HGB CONC 33.8 % (32.0-36.0); PLATELET COUNT 169 TH/MM3 (150-450); RED BLOOD COUNT 3.63 MIL/MM3 (4.00-5.30); RED CELL DISTRIBUTION WIDTH 13.7 % (11.6-17.2); WHITE BLOOD COUNT 6.9 TH/MM3 (4.0-11.0)
[2016-11-24 19:17] LABS: HEMO FLAGS AUTO DIFF
[2016-11-24 19:25] LABS: ANION GAP 6 MEQ/L (5-15); AST (GOT) 28 U/L (15-37); BLOOD UREA NITROGEN 2 MG/DL (7-18); CHLORIDE 100 MEQ/L (98-107); GLOMERULAR FILTRATION RATE 67 ML/MIN (>89); POTASSIUM 3.9 MEQ/L (3.5-5.1); SODIUM (NA) 134 MEQ/L (136-145)
[2016-11-24 19:32] LABS: ALT (GPT) 23 U/L (10-53)
[2016-11-24 19:50] LABS: PLATELET ESTIMATE SMEAR NORMAL (NORMAL); PLATELET MORPHOLOGY NORMAL (NORMAL); SCAN/DIFF AUTO DIFF CONFIRMED; STOMATOCYTES 1+ (NORMAL)
[2016-11-24 19:51] LABS: ALKALINE PHOSPHATASE 77 U/L (45-117); HDL CHOLESTEROL 125.3 MG/DL (40.0-60.0); LDL CHOLESTEROL 39 MG/DL (0-99); TOTAL BILIRUBIN ADULT 0.3 MG/DL (0.2-1.0)
[2016-11-24] MEDS: traZODone HCL 100 MG TAB PO SCH (20:45)
[2016-11-24] MEDS: LORazepam 0.5 MG TAB PO PRN (20:45)
[2016-11-24] MEDS: LURASIDONE 40 MG TAB PO SCH (20:45)
[2016-11-24 22:28] LABS: HEMOGLOBIN A1a 1.5 %; HEMOGLOBIN A1b 1.5 %; HEMOGLOBIN Ao 84.9 %; HEMOGLOBIN LA1C 2.2 %; HEMOGLOBIN P3 3.5 %
[2016-11-24] MEDS ORDERED: RESP: ALBUTEROL 2.5 MG/IPRATROPIUM 0.5 MG NEB (PRN) NEB (23:15)
[2016-11-25] MEDS: LORazepam 1 MG TAB PO PRN ×3 (02:55→20:58)
[2016-11-25 04:59] VITALS: BP 107/72; PULSE 80; RESP 14; TEMP 98.3; O2SAT 95
[2016-11-25] MEDS: PANTOPRAZOLE SOD 40 MG DELAYED RELEASE TAB PO SCH (08:34)
[2016-11-25] MEDS: clonazePAM 0.5 MG TAB PO SCH ×3 (08:34→18:46)
[2016-11-25] MEDS: FLUoxetine HCL 20 MG CAP PO SCH (08:34)
[2016-11-25] MEDS: GABAPENTIN 100 MG CAP PO SCH ×3 (08:34→18:46)
[2016-11-25] MEDS: ACETAMINOPHEN/HYDROcodone 325 MG/7.5 MG TAB PO PRN ×2 (08:35→14:22)
[2016-11-25] MEDS: METOCLOPRAMIDE HCL 10 MG TAB PO SCH ×4 (08:38→20:58)
[2016-11-25] MEDS: REMOVE OLD PATCH T-DERMAL SCH (08:41)
[2016-11-25] MEDS: NICOTINE 14 MG/24 HR PATCH T-DERMAL SCH (08:41)
[2016-11-25] MEDS: ONDANSETRON HCL 4 MG/2 ML VIAL IV PUSH PRN (10:12)
--- NOTE | 2016-11-25 16:46 | HHI.PR ---
Subjective Remarks Patient sitting in bed awake, alert and oriented x 3 Patient offers no complaints at this time nausea has improved no further vomiting per RN has been able to eat some today and tolerating ensure Objective Vitals Vital Signs Date Time Temp Pulse Resp B/P (MAP) Pulse Ox O2 Delivery O2 Flow Rate FiO2 11/25/16 15:51 18 11/25/16 04:59 98.3 80 14 107/72 (84) 95 11/24/16 17:55 98.3 61 15 120/84 (96) 99 I/O 11/24/16 11/24/16 11/24/16 11/25/16 11/25/16 11/25/16 07:00 15:00 23:00 07:00 15:00 23:00 Intake Total 120 ml 820 ml 360 ml 0 ml 240 ml Balance 120 ml 820 ml 360 ml 0 ml 240 ml Intake Oral 120 ml 720 ml 360 ml 0 ml 240 ml IV Total 100 ml # Voids 2 1 1 Result Diagram: 11/24/165 11/24/165 Other Results Laboratory Tests Test 11/23/16 14:05 11/24/16 18:25 White Blood Count 5.5 TH/MM3 6.9 TH/MM3 Red Blood Count 4.19 MIL/MM3 3.63 MIL/MM3 Hemoglobin 13.3 GM/DL 11.5 GM/DL Hematocrit 39.8 % 34.1 % Mean Corpuscular Volume 95.0 FL 94.0 FL Mean Corpuscular Hemoglobin 31.6 PG 31.7 PG Mean Corpuscular Hemoglobin Concent 33.3 % 33.8 % Red Cell Distribution Width 13.8 % 13.7 % Platelet Count 201 TH/MM3 169 TH/MM3 Mean Platelet Volume 7.4 FL 8.3 FL Neutrophils (%) (Auto) 35.9 % 42.0 % Lymphocytes (%) (Auto) 51.3 % 45.1 % Monocytes (%) (Auto) 6.7 % 6.0 % Eosinophils (%) (Auto) 3.5 % 5.5 % Basophils (%) (Auto) 2.6 % 1.4 % Neutrophils # (Auto) 2.0 TH/MM3 2.9 TH/MM3 Lymphocytes # (Auto) 2.8 TH/MM3 3.1 TH/MM3 Monocytes # (Auto) 0.4 TH/MM3 0.4 TH/MM3 Eosinophils # (Auto) 0.2 TH/MM3 0.4 TH/MM3 Basophils # (Auto) 0.1 TH/MM3 0.1 TH/MM3 CBC Comment DIFF FINAL AUTO DIFF Differential Comment AUTO DIFF CONFIRMED Urine Color YELLOW Urine Turbidity HAZY Urine pH 6.0 Urine Specific [place] 1.010 Urine Protein NEG mg/dL Urine Glucose (UA) NEG mg/dL Urine Ketones TRACE mg/dL Urine Occult Blood NEG Urine Nitrite NEG Urine Bilirubin NEG Urine Urobilinogen LESS THAN 2.0 MG/DL Urine Leukocyte Esterase NEG Urine RBC 1 /hpf Urine WBC LESS THAN 1 /hpf Urine Squamous Epithelial Cells 4 /hpf Microscopic Urinalysis Comment CULT NOT INDICATED Blood Urea Nitrogen 3 MG/DL 2 MG/DL Creatinine 0.94 MG/DL 0.92 MG/DL Random Glucose 81 MG/DL 90 MG/DL Total Protein 7.9 GM/DL 6.3 GM/DL Albumin 4.2 GM/DL 3.3 GM/DL Calcium Level 9.2 MG/DL 8.4 MG/DL Alkaline Phosphatase 97 U/L 77 U/L Aspartate Amino Transf (AST/SGOT) 35 U/L 28 U/L Alanine Aminotransferase (ALT/SGPT) 31 U/L 23 U/L Total Bilirubin 0.4 MG/DL 0.3 MG/DL Sodium Level 129 MEQ/L 134 MEQ/L Potassium Level 3.9 MEQ/L 3.9 MEQ/L Chloride Level 97 MEQ/L 100 MEQ/L Carbon Dioxide Level 18.9 MEQ/L 28.0 MEQ/L Anion Gap 13 MEQ/L 6 MEQ/L Estimat Glomerular Filtration Rate 65 ML/MIN 67 ML/MIN Magnesium Level 1.9 MG/DL Urine Opiates Screen NEG Urine Barbiturates Screen NEG Urine Amphetamines Screen NEG Urine Benzodiazepines Screen POS Urine Cocaine Screen NEG Urine Cannabinoids Screen NEG Ethyl Alcohol Level LESS THAN 3 MG/DL Platelet Estimate NORMAL Platelet Morphology Comment NORMAL Stomatocytes 1+ Hemoglobin A1c 5.6 % Triglycerides Level 95 MG/DL Cholesterol Level 183 MG/DL LDL Cholesterol 39 MG/DL HDL Cholesterol 125.3 MG/DL Cholesterol/HDL Ratio 1.46 RATIO Vitamin B12 Level 805 PG/ML 25-Hydroxy Vitamin D Total 43.1 ng/ML Thyroid Stimulating Hormone 3rd Gen 1.280 uIU/ML Objective Remarks GENERAL: Cachectic appearing female. NAD. SKIN: No rashes, ecchymoses or lesions. Warm and dry. HEAD: Atraumatic. Normocephalic. No temporal or scalp tenderness. EYES: EOMI. No injection or drainage. CARDIOVASCULAR: Regular rate and rhythm RESPIRATORY: Clear to auscultation. Breath sounds equal bilaterally. GASTROINTESTINAL: Abdomen soft, non-tender, nondistended. No guarding. Normoactive bowel sounds x 4 quadrants MUSCULOSKELETAL: Extremities without clubbing, cyanosis, or edema. NEUROLOGICAL: Awake and alert. No focal neurological deficits. Normal speech. A/P Problem List: (1) Depression, major, severe recurrence ICD Code: F33.2 - Major depressive disorder, recurrent severe without psychotic features (2) Gastroparesis ICD Code: K31.84 - Gastroparesis Status: Chronic Assessment and Plan Ms. Orellana is a pleasant 41 year old female with a history of COPD, eating disorder who was admitted to the psychiatry floor under damon act due to major depression, failure to thrive. - Please note that an Echocardiogram was ordered by mistake. Echo has been completed which does not show any remarkable findings. EF 50%. Discussed with RN. - Major depression - Management per psychiatry. - Eating disorder - possibly anorexia with bulimia - Long standing problem. - [facility] has been consulted. - Patient asks about feeding tube. I do not think placing a feeding tube is a good solution. - Psychiatric medications as well as counselling would be reasonable. - Continue regular diet with Ensure supplement. Patient tolerating PO intake better today - Na level improved now 134, potassium 3.9, mag 1.9 - Gastroparesis- symptoms improving with Reglan - Per patient, she has a history of gastroparesis which could explain nausea , vomiting. - It would be worthwhile to try Reglan which would be the treatment for gastroparesis as well as N/V. - Continue Reglan PO 10mg ACHS. Patient reports she has this medication at home. Full code. DVT prophylaxis encourage Ambulation. Patient medically stable for DC. Patient will need outpatient psych follow up and encourage PO intake. Psych plans to arrange outpatient follow up with [facility] Discussed with patient, nurse and Marguerite Dugan Nov 25, 2016 16:46
[2016-11-25 18:00] VITALS: BP 128/60; PULSE 66; RESP 15; TEMP 98.3; O2SAT 98
[2016-11-25] MEDS: traZODone HCL 100 MG TAB PO SCH (20:58)
[2016-11-25] MEDS: LURASIDONE 40 MG TAB PO SCH (20:58)
[2016-11-26] MEDS: ACETAMINOPHEN/HYDROcodone 325 MG/7.5 MG TAB PO PRN ×2 (05:06→11:59)
[2016-11-26 05:11] VITALS: BP 126/79; PULSE 60; RESP 16; TEMP 98.1; O2SAT 96
[2016-11-26] MEDS: GABAPENTIN 100 MG CAP PO SCH (08:58)
[2016-11-26] MEDS: clonazePAM 0.5 MG TAB PO SCH (08:59)
[2016-11-26] MEDS: FLUoxetine HCL 20 MG CAP PO SCH (08:59)
[2016-11-26] MEDS: PANTOPRAZOLE SOD 40 MG DELAYED RELEASE TAB PO SCH (08:59)
[2016-11-26] MEDS: METOCLOPRAMIDE HCL 10 MG TAB PO SCH (08:59)
[2016-11-26] MEDS: REMOVE OLD PATCH T-DERMAL SCH (09:00)
[2016-11-26] MEDS: NICOTINE 14 MG/24 HR PATCH T-DERMAL SCH (09:01)
[2016-11-26] MEDS: ONDANSETRON HCL 4 MG/2 ML VIAL IV PUSH PRN (09:09)
[2016-11-26] MEDS ORDERED: FLUO60TA PO (09:18)
[2016-11-26] MEDS ORDERED: GABA100C4 PO (09:18)
[2016-11-26] MEDS ORDERED: PANT40TA3 PO (09:18)
[2016-11-26] MEDS ORDERED: CLON.5 PO (09:18)
[2016-11-26] MEDS ORDERED: LURA40 PO (09:18)
[2016-11-26] MEDS ORDERED: TRAZ100T6 PO (09:18)
--- NOTE | 2016-11-26 09:21 | HHI.PYPN ---
Subjective Chief Complaint: worsening anorexia for the past 2-3 months with depressive symptoms Remarks LATE ENTRY: 11/25/16 Patient seen for follow-up, chart review. Patient found sitting in hospital bed eating breakfast. As per nursing report patient eating and tolerating meals more. Patient states that she was able to tolerate her meals and reports having seen a dietitian who made recommendations. Patient reports her mood being "okay" denies seeing sad and depressed, but reports feeling worried about her current diagnoses. Patient denies any suicidal homicidal ideations. Patient reports that she has been keeping her food down and denies having had any purging since admission. Review of Systems Except as stated in HPI: all other systems reviewed are Neg Mental Status Examination Appearance: Other Consciousness: Alert Orientation: x4 Motor Activity: Normal gait Speech: Unremarkable Language: Adequate Fund of Knowledge: Adequate Attention and Concentration: Adequate Memory: Unremarkable Mood: Good Affect: Appropriate Thought Process & Associations: Intact Thought Content: Preoccupations (with her weight) Hallucination Type: None Delusion Type: None Suicidal Ideation: No Suicidal Plan: No Suicidal Intention: No Homicidal Ideation: No Homicidal Plan: No Homicidal Intention: No Insight: Adequate Judgment: Adequate Results Vitals/IOs Vital Signs Date Time Temp Pulse Resp B/P (MAP) Pulse Ox O2 Delivery O2 Flow Rate FiO2 11/26/16 05:11 98.1 60 16 126/79 (95) 96 11/23/16 19:24 Room Air Intake and Output 11/26/16 11/26/16 11/27/16 08:00 16:00 00:00 Intake Total 720 ml Balance 720 ml Assessment & Plan Problem List: (1) Depression, major, severe recurrence ICD Codes: F33.2 - Major depressive disorder, recurrent severe without psychotic features Assessment & Plan Patient appears to be doing well, denies any mood symptoms or psychotic symptoms. Patient tolerating her meals with no purging since admission. We'll continue current treatment. Discharge planning in progress Justification for Cont. Inpt. At risk for further decompensation if at lower level of care Discharge Planning Patient to be discharged back to her residence was psychiatrically clear. Warren Navas MD Nov 26, 2016 09:21
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
--- NOTE | 2016-11-26 09:31 | HHI.PR ---
Subjective Remarks Patient seen and examined Reports improvement of nausea. She denies any emesis No appetite this morning Objective Vitals Vital Signs Date Time Temp Pulse Resp B/P (MAP) Pulse Ox O2 Delivery O2 Flow Rate FiO2 11/26/16 05:11 98.1 60 16 126/79 (95) 96 11/25/16 18:00 98.3 66 15 128/60 (82) 98 11/25/16 15:51 18 I/O 11/25/16 11/25/16 11/25/16 11/26/16 11/26/16 11/26/16 07:00 15:00 23:00 07:00 15:00 23:00 Intake Total 0 ml 240 ml 1 ml 720 ml 720 ml Balance 0 ml 240 ml 1 ml 720 ml 720 ml Intake Oral 0 ml 240 ml 1 ml 720 ml 720 ml # Voids 1 5 Result Diagram: 11/24/16182411/24/161824 Objective Remarks GENERAL: NAD SKIN: Warm and dry. HEAD: Normocephalic. EYES: No scleral icterus. No injection or drainage. NECK: Supple, trachea midline. No JVD or lymphadenopathy. CARDIOVASCULAR: Regular rate and rhythm without murmurs, gallops, or rubs. RESPIRATORY: Breath sounds equal bilaterally. No accessory muscle use. GASTROINTESTINAL: Abdomen soft, non-tender, nondistended. MUSCULOSKELETAL: No cyanosis, or edema. BACK: Nontender without obvious deformity. No CVA tenderness. A/P Problem List: (1) Depression, major, severe recurrence ICD Code: F33.2 - Major depressive disorder, recurrent severe without psychotic features (2) Gastroparesis ICD Code: K31.84 - Gastroparesis Status: Chronic Assessment and Plan 41-year-old female with - Major depression - Management per psychiatry. - Eating disorder - possibly anorexia with bulimia - Management per psychiatry - Global Implementation Manager consult pending - Gastroparesis - Continue Reglan PO 10mg ACHS. Full code. Ambulation. Discharge Planning Medically clear for discharge Warren Cash MD Nov 26, 2016 09:31
== END 2016-11-26 12:40 | disposition home or self-care (01) | DRG 885 ==
LOC: NEPD 12:18 → NEDA 17:32 → H4EA 17:45
PROVIDERS: ADMIT Student in an Organized Health Care Education/Training Program; ATTEND Student in an Organized Health Care Education/Training Program
DX: F33.2 Major depressive disorder, recurrent severe without psychotic features (principal); E87.1 Hypo-osmolality and hyponatremia; F50.02 Anorexia nervosa, binge eating/purging type; K74.60 Unspecified cirrhosis of liver; Z68.1 Body mass index [BMI] 19.9 or less, adult; J44.9 Chronic obstructive pulmonary disease, unspecified; G89.29 Other chronic pain; M54.9 Dorsalgia, unspecified; M19.90 Unspecified osteoarthritis, unspecified site; Z85.820 Personal history of malignant melanoma of skin; K21.9 Gastro-esophageal reflux disease without esophagitis; Z72.0 Tobacco use; F10.10 Alcohol abuse, uncomplicated; R68.81 Early satiety; M81.0 Age-related osteoporosis without current pathological fracture; K31.84 Gastroparesis; R62.7 Adult failure to thrive; F43.10 Post-traumatic stress disorder, unspecified; Z91.5 Personal history of self-harm
CPT/HCPCS: 76937; 80053; 80061; 80307; 81001; 82306; 82607; 83036; 83735; 84443; 84703; 85025; 93005; 93306; 94664; 96361; 96374; J0290; J2405; J7040

== ENCOUNTER 2016-11-28 14:57 | Emergency (ER) | payer SELFPAY ==
[~2016-11-28] VITALS: Ht 157.5 cm; Wt 34.0 kg
[~2016-11-28 14:57] MED LIST changes: +CLON.5 PO; -CLON0.5T PO; +FLUO60TA PO; +HYDR-3580 PO; +LURA40 PO; +PANT40TA3 PO; -PROZ20CA11 PO; +TRAZ100T6 PO; -TRAZ300T2 PO
[2016-11-28 15:00] VITALS: BP 62/41; PULSE 125; RESP 18; TEMP 98; O2SAT 91
[2016-11-28] MEDS ORDERED: SODIUM CHLOR 0.9% 1000 ML INJ 1,000 ML IV SCH (15:08)
[2016-11-28 15:12] VITALS: O2SAT 97
[2016-11-28] MEDS ORDERED: SODIUM CHLORIDE 0.9% FLUSH 10 ML FLUSH IV FLUSH PRN (15:15)
[2016-11-28] MEDS ORDERED: SODIUM CHLOR 0.9% 1000 ML INJ 1,000 ML IV ONE (15:15)
--- NOTE | 2016-11-28 15:31 | PD ---
HPI Chief Complaint: Abnormal Results Time Seen by Provider: 15:08 Travel History International Travel<30 days: No Contact w/Intl Traveler<30days: No Traveled to known affect area: No History of Present Illness HPI Patient is a 41-year-old female with history of COPD, gastroparesis, pain, anorexia, bulimia, presents to emergency room with complaints of syncopal episode. Patient reports that she was released 2 days ago after she was [place] acted for her anorexia. Patient reports that she has not been eating enough to sustain life. Patient reports that she has been eating and has been purging, reports that today she had a piece of a toast. Patient reports that one hour prior to presentation, she stood up and had a syncopal episode, she reports that feels lightheaded and dizzy this time. Patient reports that she is an anorexic/bulemic - reports that this is a disease that she can't seem to beat. Patient denies chest pain/sob. No abdominal pain. Patient with no other complaints at this time. Patient denies suicidal or homicidal ideations at this time. PFSH Past Medical History Hx Anticoagulant Therapy: No Anemia: Yes Arthritis: Yes Asthma: No Autoimmune Disease: No Blood Disorders: No Bipolar Disorder: Yes Anxiety: Yes Depression: Yes Heart Rhythm Problems: No Cancer: Yes ( melanoma abdomen) Cardiovascular Problems: No High Cholesterol: No Chemotherapy: No Chest Pain: No Congestive Heart Failure: No Cirrhosis: Yes (DX WITH FATTY LIVER 10-15 YEARS AGO) COPD: No Cerebrovascular Accident: No Developmental Delay: No Diabetes: No Diminished Hearing: No Endocrine: No Gastrointestinal Disorders: Yes (DELAYED GASTRIC EMPTYING, ) GERD: Yes Genitourinary: No Hiatal Hernia: Yes Hypertension: No Immune Disorder: No Implanted Vascular Access Dvce: No Insomnia: Yes Kidney Stones: No Musculoskeletal: Yes (few months ago) Neurologic: Yes Psychiatric: Yes (anorexia and bulimia) Reproductive: No Respiratory: Yes (COPD) Integumentary: Yes (07/2010- MRSA TO BILATERAL ARMS) Immunizations Current: Yes Migraines: Yes Myocardial Infarction: No Pancreatitis: Yes Radiation Therapy: No Renal Failure: No Seizures: Yes (last night questionable ) Sleep Apnea: No Thyroid Disease: No Ulcer: Yes ?: Not Menopausal: Yes : 3 Para: 1 Miscarriage: 1 : 1 Past Surgical History Abdominal Surgery: No AICD: No Arteriovenous Shunt: No Cardiac Surgery: No Ear Surgery: No Endocrine Surgery: No Eye Surgery: Yes (PT STATES SHE HAD EYE SURGERY FOR "[employer]" WHEN SHE WAS 3 YEARS OLD.) Genitourinary Surgery: No Gynecologic Surgery: No Hysterectomy: No Insulin Pump: No Joint Replacement: No Neurologic Surgery: No Oral Surgery: No Pacemaker: No Thoracic Surgery: No Social History Alcohol Use: Yes (CHRONIC ALCOHOLIC; just detoxed ) Tobacco Use: Yes (PPD) Substance Use: No Allergies-Medications (Allergen,Severity, Reaction): Coded Allergies: lithium (Unverified Allergy, Severe, Seizures, 11/28/16) *MDRO Multi-Drug Resistant Organism (Verified Adverse Reaction, Unknown, Cleared 01/12/16, 11/28/16) MRSA (skin) - 07/2010 MRSA PCR Screens NEGATIVE - 12/10/15 & 01/12/16 Cleared per Infection Control Reported Meds & Prescriptions Reported Meds & Active Scripts Active Pantoprazole (Pantoprazole Sodium) 40 Mg Tab 40 Mg PO DAILY 30 Days Latuda (Lurasidone) 40 Mg Tab 40 Mg PO HS 30 Days Trazodone (Trazodone HCl) 100 Mg Tablet 200 Mg PO HS Fluoxetine (Fluoxetine HCl) 60 Mg Tab 60 Mg PO DAILY Gabapentin 100 Mg Cap 100 Mg PO TID 30 Days Klonopin (Clonazepam) 0.5 Mg Tab 0.5 Mg PO TID 30 Days Protonix (Pantoprazole Sodium) 40 Mg Tab 40 Mg PO DAILY Reported Hydrocodone-Acetaminophen 7.5-325 mg Tab 1 Tab PO Q4H PRN Duoneb (Ipratropium-Albuterol Neb) 0.5-2.5 Mg/3 Ml Neb 1 Nebule INH PRN Review of Systems General / Constitutional: No: Fever Eyes: No: Visual changes HENT: Positive: Lightheadedness, No: Headaches Cardiovascular: Positive: Syncope, No: Chest Pain or Discomfort Respiratory: No: Shortness of Breath Gastrointestinal: No: Abdominal Pain Genitourinary: No: Dysuria Musculoskeletal: No: Pain Skin: No Rash Neurologic: No: Weakness Psychiatric: No: Depression Endocrine: No: Polydipsia Hematologic/Lymphatic: No: Easy Bruising Physical Exam Narrative GENERAL: moderate distress, patient cachectic appearing SKIN: Focused skin assessment warm/dry. HEAD: Atraumatic. Normocephalic. EYES: Pupils equal and round. No scleral icterus. No injection or drainage. ENT: No nasal bleeding or discharge. Mucous membranes pink and moist. NECK: Trachea midline. No JVD. CARDIOVASCULAR: Tachycardic. No murmur appreciated. RESPIRATORY: No accessory muscle use. Clear to auscultation. Breath sounds equal bilaterally. GASTROINTESTINAL: Abdomen soft, non-tender, nondistended. Hepatic and splenic margins not palpable. MUSCULOSKELETAL: No obvious deformities. No clubbing. No cyanosis. No edema. NEUROLOGICAL: Awake and alert. No obvious cranial nerve deficits. Motor grossly within normal limits. Normal speech. PSYCHIATRIC: Appropriate mood and affect; insight and judgment normal. Denies suicidal or homicidal ideations Data Data Last Documented VS Vital Signs Date Time Temp Pulse Resp B/P (MAP) Pulse Ox O2 Delivery O2 Flow Rate FiO2 11/28/16 16:38 71 18 105/54 (71) 97 Room Air 11/28/16 15:36 2.00 11/28/16 15:00 98.0 Orders Orders Beta Hcg (Quant/Titer) (11/28/16 15:08) Complete Blood Count With Diff (11/28/16 15:08) Comprehensive Metabolic Panel (11/28/16 15:08) Lipase (11/28/16 15:08) Prothrombin Time / Inr (Pt) (11/28/16 15:08) Act Partial Throm Time (Ptt) (11/28/16 15:08) Urinalysis - C+S If Indicated (11/28/16 15:08) Iv Access Insert/Monitor (11/28/16 15:08) Ecg Monitoring (11/28/16 15:08) Oximetry (11/28/16 15:08) Sodium Chlor 0.9% 1000 Ml Inj (Ns 1000 M (11/28/16 15:08) Sodium Chloride 0.9% Flush (Ns Flush) (11/28/16 15:15) Electrocardiogram (11/28/16 15:08) Ed Urine Pregnancytest Poc (11/28/16 15:08) Sodium Chlor 0.9% 1000 Ml Inj (Ns 1000 M (11/28/16 15:15) Ondansetron Inj (Zofran Inj) (11/28/16 16:00) Psych Screen (10/22/17 16:31) Labs Laboratory Tests Test 11/28/16 15:27 White Blood Count 5.6 TH/MM3 Red Blood Count 3.84 MIL/MM3 Hemoglobin 12.3 GM/DL Hematocrit 35.8 % Mean Corpuscular Volume 93.2 FL Mean Corpuscular Hemoglobin 32.1 PG Mean Corpuscular Hemoglobin Concent 34.4 % Red Cell Distribution Width 13.4 % Platelet Count 311 TH/MM3 Mean Platelet Volume 7.5 FL Neutrophils (%) (Auto) 34.6 % Lymphocytes (%) (Auto) 57.7 % Monocytes (%) (Auto) 4.6 % Eosinophils (%) (Auto) 1.8 % Basophils (%) (Auto) 1.3 % Neutrophils # (Auto) 1.9 TH/MM3 Lymphocytes # (Auto) 3.2 TH/MM3 Monocytes # (Auto) 0.3 TH/MM3 Eosinophils # (Auto) 0.1 TH/MM3 Basophils # (Auto) 0.1 TH/MM3 CBC Comment DIFF FINAL Differential Comment Prothrombin Time 10.4 SEC Prothromb Time International Ratio 0.9 RATIO Activated Partial Thromboplast Time 27.8 SEC Urine Color LIGHT-YELLOW Urine Turbidity HAZY Urine pH 8.0 Urine Specific [place] 1.006 Urine Protein 30 mg/dL Urine Glucose (UA) NEG mg/dL Urine Ketones NEG mg/dL Urine Occult Blood NEG Urine Nitrite NEG Urine Bilirubin NEG Urine Urobilinogen LESS THAN 2.0 MG/DL Urine Leukocyte Esterase NEG Urine RBC 1 /hpf Urine WBC 1 /hpf Urine Squamous Epithelial Cells 6 /hpf Urine Bacteria RARE /hpf Urine Mucus FEW /lpf Microscopic Urinalysis Comment CULT NOT INDICATED Blood Urea Nitrogen 4 MG/DL Creatinine 1.09 MG/DL Random Glucose 123 MG/DL Total Protein 6.6 GM/DL Albumin 3.4 GM/DL Calcium Level 8.4 MG/DL Alkaline Phosphatase 79 U/L Aspartate Amino Transf (AST/SGOT) 22 U/L Alanine Aminotransferase (ALT/SGPT) 22 U/L Total Bilirubin 0.2 MG/DL Sodium Level 134 MEQ/L Potassium Level 3.5 MEQ/L Chloride Level 97 MEQ/L Carbon Dioxide Level 27.3 MEQ/L Anion Gap 10 MEQ/L Estimat Glomerular Filtration Rate 55 ML/MIN Lipase 73 U/L Human Chorionic Gonadotropin, Quant LESS THAN 1 MIU/ML MDM Medical Decision Making Medical Screen Exam Complete: Yes Emergency Medical Condition: Yes Medical Record Reviewed: Yes Interpretation(s) EKG at 1515: Sinus tach at 109bpm, qt/qtc: 338/402, no acute st or t wave changes Vital Signs Date Time Temp Pulse Resp B/P (MAP) Pulse Ox O2 Delivery O2 Flow Rate FiO2 11/28/16 15:12 97 Nasal Cannula 2.00 11/28/16 15:00 98.0 125 18 62/41 (48) 91 Differential Diagnosis Differential includes orthostatic hypertension, electrolyte abnormality, anorexia, bulimia, dehydration Narrative Course 41 year old female who was recently discharged from the hospital on November 26, 2016 after she was admitted for major depressive disorders with anorexia. Patient reports that since her discharge, she has not eaten enough to sustain life. Reports that she had a small piece of the toast today, reports that she did fell lightheaded and dizzy today and suffered a syncopal episode 1 hour prior to arrival to ER. Patient's fiance is at bedside, reports the patient has been purging her meals, reports that she does not purge, she eats "very little." Reports concerns as her anorexia and bulimia has not improved after her discharge. Patient denies suicidal or homicidal ideations at this time. Patient was placed on a satellite project site monitor upon arrival to the emergency room. EKG shows sinus tachycardia, patient was hypotensive with a blood pressure of 62 /41 - most likely due to dehydration as well as malnutrition. Plan to obtain basic blood work, will administer IV fluids. Vital Signs Date Time Temp Pulse Resp B/P (MAP) Pulse Ox O2 Delivery O2 Flow Rate FiO2 11/28/16 15:36 18 97 Nasal Cannula 2.00 11/28/16 15:12 97 Nasal Cannula 2.00 11/28/16 15:00 98.0 125 18 62/41 (48) 91 CBC & BMP Diagram 11/28/16 15:27 Total Protein 6.6, Albumin 3.4, Calcium Level 8.4 L, Alkaline Phosphatase 79, Aspartate Amino Transf (AST/SGOT) 22, Alanine Aminotransferase (ALT/SGPT) 22, Total Bilirubin 0.2 Patient's blood pressure now 109/54 after 2 liters of IVF. Patient is feeling much better at this time. I reviewed all labs and studies with patient. Patient request to talk to psychiatric screener Patient as well as her fianc does not feel comfortable having patient go home as patient has anorexia with bulimia, patient of this time requesting a feeding tube. I spoke to patient and her fiance multiple times, discussed with her that she will need to go for outpatient treatment of her anorexia/bulemia. Patient is able to eat and drink but refuses to or if she eats, vomits it up. Patient's fiance requesting admission to the hospital at this time for treatment of anorexia and bulemia. ED lens inserter did go and talk to patient and her . Agnes from psych went to speak to patient - they do not want to see psych, they request medical treatment for her symptoms. Case reviewed with therapeutic case manager, patient meets inpatient criteria given her low bmi as well as her episode of hypotension upon arrival to ER. Case reviewed with Dr. Cash who accepts pt to service Critical Care Narrative Aggregate critical care time was 30 minutes. Time to perform other separately billable procedures was not included in the critical care time. My time did not include minutes spent treating any other patients simultaneously or on activities that did not directly contribute to the patient's treatment. The services I provided to this patient were to treat and/or prevent clinically significant deterioration that could result in: , decompensation, deterioration I provided critical care services requiring my management, as noted below: Chart data review, documentation time, medication orders and management, vital sign assessments/reviewing monitor data, ordering and reviewing lab tests, ordering and interpreting/reviewing x-rays and diagnostic studies, care of the patient and discussion of the patient with the admitting physicians. Diagnosis Primary Impression: Anorexia nervosa with bulimia Additional Impression: Dehydration Admitting Information Admitting Physician Requests: Observation Patient Instructions: General Instructions Additional Instructions: Please follow up with your primary care doctor Return to ER as needed Please make sure you eat and drink enough fluids Verónica Calderon DO Nov 28, 2016 15:31
[2016-11-28 15:57] LABS: BACTERIA, URINE RARE /hpf; BLOOD, URINE NEG (NEG); GLUCOSE,URINE NEG (NEG); KETONE, URINE NEG (NEG); MUCUS URINE FEW /lpf (OCC); NITRITE,URINE NEG (NEG); SQUAMOUS EPITHELIAL CELL URINE 6 /hpf (0-5); URINE COLOR LIGHT-YELLOW (YELLW/STRAW)
[2016-11-28 15:59] LABS: COMMENT (UR) CULT NOT INDICATED; CULTURE IF INDICATED CULT NOT INDICATED
[2016-11-28] MEDS ORDERED: ONDANSETRON HCL 4 MG/2 ML VIAL IV PUSH ONE (16:00)
[2016-11-28 16:07] LABS: AUTOMATED NEUTROPHIL # 1.9 TH/MM3 (1.8-7.7); BASOPHIL # 0.1 TH/MM3 (0-0.2); BASOPHIL % 1.3 % (0.0-2.0); EOSINOPHIL # 0.1 TH/MM3 (0-0.4); EOSINOPHIL % 1.8 % (0.0-4.0); HEMATOCRIT 35.8 % (35.0-46.0); HEMO FLAGS DIFF FINAL; LYMPH % 57.7 % (9.0-44.0); LYMPHOCYTE # 3.2 TH/MM3 (1.0-4.8); MEAN CELL VOLUME 93.2 FL (80.0-100.0); MEAN CORPUSCULAR HEMOGLOBIN 32.1 PG (27.0-34.0); MEAN CORPUSCULAR HGB CONC 34.4 % (32.0-36.0); MONO % 4.6 % (0.0-8.0); NEUT % 34.6 % (16.0-70.0); PLATELET COUNT 311 TH/MM3 (150-450); RED BLOOD COUNT 3.84 MIL/MM3 (4.00-5.30); RED CELL DISTRIBUTION WIDTH 13.4 % (11.6-17.2); WHITE BLOOD COUNT 5.6 TH/MM3 (4.0-11.0)
[2016-11-28 16:08] LABS: ALT (GPT) 22 U/L (10-53); ANION GAP 10 MEQ/L (5-15); AST (GOT) 22 U/L (15-37); BICARBONATE 27.3 MEQ/L (21.0-32.0); BLOOD UREA NITROGEN 4 MG/DL (7-18); CHLORIDE 97 MEQ/L (98-107); GLOMERULAR FILTRATION RATE 55 ML/MIN (>89); POTASSIUM 3.5 MEQ/L (3.5-5.1); SODIUM (NA) 134 MEQ/L (136-145)
[2016-11-28 16:11] LABS: APTT (PATIENT) 27.8 SEC (24.3-30.1); INTERNATIONAL NORMALIZED RATIO 0.9 RATIO; PROTHROMBIN TIME - PATIENT 10.4 SEC (9.8-11.6)
[2016-11-28 16:14] LABS: ALKALINE PHOSPHATASE 79 U/L (45-117); BETA HCG QUANT LESS THAN 1 MIU/ML (0-5); TOTAL BILIRUBIN ADULT 0.2 MG/DL (0.2-1.0)
[2016-11-28 16:38] VITALS: BP 105/54; PULSE 71; RESP 18; O2SAT 97
--- NOTE | 2016-11-28 18:24 | HHI.HP ---
[facility] Shayne John M.D. Admission Diagnosis Anorexia with bulemia Diagnoses: (1) Hypotension (2) Anorexia nervosa with bulimia Chief Complaint: Near syncope Travel History International Travel<30 Days: No Contact w/Intl Traveler <30 Da: No Traveled to Known Affected Are: No History of Present Illness 41-year-old female with multiyear history of anorexia, was recently discharged from the hospital 2 days ago due to depression, return to the ED today for evaluation of syncope. Patient states, she hasn't been eating enough, and states 1 hour prior to presentation as she stood up she became lightheaded and dizzy. She is requesting that a PEG tube be placed. She has no other complaints. After I spent a patient that's her vitals were stable and she will be discharged and she did call her fianc to come to pick her up. Information regarding [employer] was provided to patient by Verónica upper caser was present during my encounter with the patient. Patient was then seen after I left the room ambulating to the nursing station without any difficulty. On presentation, patient had low BP which resolved with this IV fluid hydration Review of Systems Except as stated in HPI: all other systems reviewed are Neg Past Family Social History Past Medical History COPD Osteoporosis Gastroparesis Failure to thrive Severe depression Eating disorder Past Surgical History Malignant melanoma removal 6 years ago Reported Medications Pantoprazole (Pantoprazole Sodium) 40 Mg Tab 40 Mg PO DAILY 30 Days Latuda (Lurasidone) 40 Mg Tab 40 Mg PO HS 30 Days Trazodone (Trazodone HCl) 100 Mg Tablet 200 Mg PO HS Fluoxetine (Fluoxetine HCl) 60 Mg Tab 60 Mg PO DAILY Gabapentin 100 Mg Cap 100 Mg PO TID 30 Days Klonopin (Clonazepam) 0.5 Mg Tab 0.5 Mg PO TID 30 Days Protonix (Pantoprazole Sodium) 40 Mg Tab 40 Mg PO DAILY Reported Hydrocodone-Acetaminophen 7.5-325 mg Tab 1 Tab PO Q4H PRN Duoneb (Ipratropium-Albuterol Neb) 0.5-2.5 Mg/3 Ml Neb 1 Nebule INH PRN Allergies: Coded Allergies: lithium (Unverified Allergy, Severe, Seizures, 11/28/16) *MDRO Multi-Drug Resistant Organism (Verified Adverse Reaction, Unknown, Cleared 01/12/16, 11/28/16) MRSA (skin) - 07/2010 MRSA PCR Screens NEGATIVE - 12/10/15 & 01/12/16 Cleared per Infection Control Family History Mom - hypothyroidism, HTN, sleep apnea. Social History Patient denies current use of tobacco. Used to drink alcohol but she does not drink anymore. Denies using illicit drugs. Physical Exam Vital Signs Vital Signs Date Time Temp Pulse Resp B/P (MAP) Pulse Ox O2 Delivery O2 Flow Rate FiO2 11/28/16 16:38 71 18 105/54 (71) 97 Room Air 11/28/16 15:36 18 97 Nasal Cannula 2.00 11/28/16 15:12 97 Nasal Cannula 2.00 11/28/16 15:00 98.0 125 18 62/41 (48) 91 Physical Exam GENERAL: This is a well-nourished, well-developed patient, in no apparent distress. SKIN: No rashes, ecchymoses or lesions. Cool and dry. HEAD: Atraumatic. Normocephalic. No temporal or scalp tenderness. EYES: Pupils equal round and reactive. Extraocular motions intact. No scleral icterus. No injection or drainage. ENT: Nose without bleeding, purulent drainage or septal hematoma. Throat without erythema, tonsillar hypertrophy or exudate. Uvula midline. Airway patent. NECK: Trachea midline. No JVD or lymphadenopathy. Supple, nontender, no meningeal signs. CARDIOVASCULAR: Regular rate and rhythm without murmurs, gallops, or rubs. RESPIRATORY: Clear to auscultation. Breath sounds equal bilaterally. No wheezes , rales, or rhonchi. GASTROINTESTINAL: Abdomen soft, non-tender, nondistended. No hepato-splenomegaly , or palpable masses. No guarding. MUSCULOSKELETAL: Extremities without clubbing, cyanosis, or edema. No joint tenderness, effusion, or edema noted. No calf tenderness. Negative Homans sign bilaterally. NEUROLOGICAL: Awake and alert. Cranial nerves II through XII intact. Motor and sensory grossly within normal limits. Five out of 5 muscle strength in all muscle groups. Normal speech. Laboratory Laboratory Tests Test 10/22/17 15:27 White Blood Count 5.6 Red Blood Count 3.84 Hemoglobin 12.3 Hematocrit 35.8 Mean Corpuscular Volume 93.2 Mean Corpuscular Hemoglobin 32.1 Mean Corpuscular Hemoglobin Concent 34.4 Red Cell Distribution Width 13.4 Platelet Count 311 Mean Platelet Volume 7.5 Neutrophils (%) (Auto) 34.6 Lymphocytes (%) (Auto) 57.7 Monocytes (%) (Auto) 4.6 Eosinophils (%) (Auto) 1.8 Basophils (%) (Auto) 1.3 Neutrophils # (Auto) 1.9 Lymphocytes # (Auto) 3.2 Monocytes # (Auto) 0.3 Eosinophils # (Auto) 0.1 Basophils # (Auto) 0.1 CBC Comment DIFF FINAL Differential Comment Prothrombin Time 10.4 Prothromb Time International Ratio 0.9 Activated Partial Thromboplast Time 27.8 Urine Color LIGHT-YELLOW Urine Turbidity HAZY Urine pH 8.0 Urine Specific [place] 1.006 Urine Protein 30 Urine Glucose (UA) NEG Urine Ketones NEG Urine Occult Blood NEG Urine Nitrite NEG Urine Bilirubin NEG Urine Urobilinogen LESS THAN 2.0 Urine Leukocyte Esterase NEG Urine RBC 1 Urine WBC 1 Urine Squamous Epithelial Cells 6 Urine Bacteria RARE Urine Mucus FEW Microscopic Urinalysis Comment CULT NOT INDICATED Blood Urea Nitrogen 4 Creatinine 1.09 Random Glucose 123 Total Protein 6.6 Albumin 3.4 Calcium Level 8.4 Alkaline Phosphatase 79 Aspartate Amino Transf (AST/SGOT) 22 Alanine Aminotransferase (ALT/SGPT) 22 Total Bilirubin 0.2 Sodium Level 134 Potassium Level 3.5 Chloride Level 97 Carbon Dioxide Level 27.3 Anion Gap 10 Estimat Glomerular Filtration Rate 55 Lipase 73 Human Chorionic Gonadotropin, Quant LESS THAN 1 Result Diagram: 11/28/16 1527 11/28/16 1527 Caprini VTE Risk Assessment Caprini VTE Risk Assessment: No/Low Risk (score <= 1) Caprini Risk Assessment Model Point Value = 1 Point Value = 2 Point Value = 3 Point Value = 5 Age 41-60 Minor surgery BMI > 25 kg/m2 Swollen legs Varicose veins or History of unexplained or recurrent spontaneous Oral contraceptives or hormone replacement Sepsis (< 1 month) Serious lung disease, including pneumonia (< 1 month) Abnormal pulmonary function Acute myocardial infarction Congestive heart failure (< 1 month) History of inflammatory bowel disease Medical patient at bed rest Age 61-74 Arthroscopic surgery Major open surgery (> 45 min) Laparoscopic surgery (> 45 min) Malignancy Confined to bed (> 72 hours) Immobilizing plaster cast Central venous access Age >= 75 History of VTE Family history of VTE Factor V Leiden Prothrombin [id number] Lupus anticoagulant Anticardiolipin antibodies Elevated serum homocysteine Heparin-induced thrombocytopenia Other congenital or acquired thrombophilia Stroke (< 1 month) Elective arthroplasty Hip, pelvis, or leg fracture Acute spinal cord injury (< 1 month) Prophylaxis Regimen Total Risk Factor Score Risk Level Prophylaxis Regimen 0-1 Low Early ambulation 2 Moderate Order ONE of the following: *Sequential Compression Device (SCD) *Heparin 5000 units SQ BID 3-4 Higher Order ONE of the following medications: *Heparin 5000 units SQ TID *Enoxaparin/Lovenox 40 mg SQ daily (WT < 150 kg, CrCl > 30 mL/min) *Enoxaparin/Lovenox 30 mg SQ daily (WT < 150 kg, CrCl > 10-29 mL/min) *Enoxaparin/Lovenox 30 mg SQ BID (WT < 150 kg, CrCl > 30 mL/min) AND/OR *Sequential Compression Device (SCD) 5 or more Highest Order ONE of the following medications: *Heparin 5000 units SQ TID (Preferred with Epidurals) *Enoxaparin/Lovenox 40 mg SQ daily (WT < 150 kg, CrCl > 30 mL/min) *Enoxaparin/Lovenox 30 mg SQ daily (WT < 150 kg, CrCl > 10-29 mL/min) *Enoxaparin/Lovenox 30 mg SQ BID (WT < 150 kg, CrCl > 30 mL/min) AND *Sequential Compression Device (SCD) Assessment and Plan Problem List: (1) Hypotension ICD Code: I95.9 - Hypotension, unspecified Status: Chronic (2) Anorexia nervosa with bulimia ICD Code: F50.02 - Anorexia nervosa, binge eating/purging type Status: Chronic Assessment and Plan 1-year-old female with Hypotension Complication from anorexia with bulimia Patient responded well to IV fluid bolus in the ED BP at the time of discharge is 105/54 Near-syncope Vasovagal Again; its was stressed out the importance to patient to increase by mouth intake Anorexia with bulimia Patient was given information Verónica, upper caser regarding [facility]. She was advised to set up an appointment tomorrow 11/29/16 Patient is requesting that PEG tube replaced him however she was told again to follow with [facility] [address] Near-syncope Vasovagal Again; its was stressed out the importance to patient to increase by mouth intake At this time, patient will be discharged home Discussed Condition With Patient, ED physician, Verónica upper caser Warren Cash MD Nov 28, 2016 18:24
--- NOTE | 2016-11-29 13:39 | EKG ---
Date Performed: 11/28/2016 Time Performed: 15:15:17 PTAGE: 41 years EKG: SINUS TACHYCARDIA WITH SHORT RI INTERVAL When compared to previous tracing, sinus rate has increased. ABNORMAL RHYTHM ECG PREVIOUS TRACING : 11/24/2016 07.44.17 DOCTOR: Nicolas Silverman Interpretating Date/Time 11/29/2016 13:37:45
== END 2016-11-28 19:02 | disposition home or self-care (01) ==
LOC: NEPC 14:57 → UNDOADMOB 17:56 → NEDA 17:56
DX: F50.02 Anorexia nervosa, binge eating/purging type (principal); E86.0 Dehydration; I95.9 Hypotension, unspecified; K21.9 Gastro-esophageal reflux disease without esophagitis; K31.84 Gastroparesis; M81.0 Age-related osteoporosis without current pathological fracture; R55 Syncope and collapse; J44.9 Chronic obstructive pulmonary disease, unspecified
CPT/HCPCS: 80053; 81001; 83690; 84702; 84703; 85025; 85610; 85730; 93005; J2405; J7030

== ENCOUNTER 2016-11-30 20:30 | Emergency (ER) | payer SELFPAY ==
[~2016-11-30] VITALS: Ht 165.1 cm; Wt 35.0 kg
[~2016-11-30 20:30] MED LIST changes: -HYDR-3580 PO; -PROT40TA PO
[2016-11-30 20:51] VITALS: BP 99/64; PULSE 80; RESP 16; TEMP 98.3; O2SAT 98
--- NOTE | 2016-11-30 20:51 | PD ---
HPI Chief Complaint: Syncope/Near-Syncope Time Seen by Provider: 20:51 Travel History International Travel<30 days: No Contact w/Intl Traveler<30days: No Traveled to known affect area: No History of Present Illness HPI 41-year-old female came to the emergency room sent from [facility] after she had a syncopal episode at [facility] while she was waiting to be seen. Patient was brought in with a C-collar. Patient is awake and answering questions appropriately. Patient says that she is a chronic alcoholic and was at [facility] to be checked in for a rehabilitation. While she was standing she started getting lightheaded and after which she passed out. She was complaining of headache at the back of her head since she hit her head when she fell. Patient also says that she has been passing out lately. However she was admitted and [facility] 2 weeks ago for the exact same reason. Patient says she was in the hospital for 3-4 days at that time. Patient's vital signs are within acceptable limits. Patient says she has been oozing her weight a lot lately mainly because she has not been eating. She identifies herself as an anorexic. Patient weighs 75 pounds as per her. Patient says that she drank 5 shots of vodka today. She is awake and answering questions appropriately. [facility] Past Medical History Narrative Medical List of her past medical, surgival, social and family history was reviewed from the nursing note. Hx Anticoagulant Therapy: No Anemia: Yes Arthritis: Yes Asthma: No Autoimmune Disease: No Blood Disorders: No Bipolar Disorder: Yes Anxiety: Yes Depression: Yes Heart Rhythm Problems: No Cancer: Yes ( melanoma abdomen) Cardiovascular Problems: No High Cholesterol: No Chemotherapy: No Chest Pain: No Congestive Heart Failure: No Cirrhosis: Yes (DX WITH FATTY LIVER 10-15 YEARS AGO) COPD: No Cerebrovascular Accident: No Developmental Delay: No Diabetes: No Diminished Hearing: No Endocrine: No Gastrointestinal Disorders: Yes (DELAYED GASTRIC EMPTYING, ) GERD: Yes Genitourinary: No Hiatal Hernia: Yes Hypertension: No Immune Disorder: No Implanted Vascular Access Dvce: No Insomnia: Yes Kidney Stones: No Musculoskeletal: Yes (few months ago) Neurologic: Yes Psychiatric: Yes (anorexia and bulimia) Reproductive: No Respiratory: Yes (COPD) Integumentary: Yes (07/2010- MRSA TO BILATERAL ARMS) Immunizations Current: Yes Migraines: Yes Myocardial Infarction: No Pancreatitis: Yes Radiation Therapy: No Renal Failure: No Seizures: Yes (last night questionable ) Sleep Apnea: No Thyroid Disease: No Ulcer: Yes Menopausal: Yes : 3 Para: 1 Miscarriage: 1 : 1 Past Surgical History Abdominal Surgery: No AICD: No Arteriovenous Shunt: No Cardiac Surgery: No Ear Surgery: No Endocrine Surgery: No Eye Surgery: Yes (PT STATES SHE HAD EYE SURGERY FOR "LAZY EYE" WHEN SHE WAS 3 YEARS OLD.) Genitourinary Surgery: No Gynecologic Surgery: No Hysterectomy: No Insulin Pump: No Joint Replacement: No Neurologic Surgery: No Oral Surgery: No Pacemaker: No Thoracic Surgery: No Social History Alcohol Use: Yes (CHRONIC ALCOHOLIC; just detoxed ) Tobacco Use: Yes (PPD) Substance Use: No Allergies-Medications (Allergen,Severity, Reaction): Coded Allergies: lithium (Unverified Allergy, Severe, Seizures, 11/30/16) *MDRO Multi-Drug Resistant Organism (Verified Adverse Reaction, Unknown, Cleared 01/12/16, 11/30/16) MRSA (skin) - 07/2010 MRSA PCR Screens NEGATIVE - 12/10/15 & 01/12/16 Cleared per Infection Control Comments List of her allergies reviewed from the nursing note. Reported Meds & Prescriptions Reported Meds & Active Scripts Active Pantoprazole (Pantoprazole Sodium) 40 Mg Tab 40 Mg PO DAILY 30 Days Latuda (Lurasidone) 40 Mg Tab 40 Mg PO HS 30 Days Trazodone (Trazodone HCl) 100 Mg Tablet 200 Mg PO HS Fluoxetine (Fluoxetine HCl) 60 Mg Tab 60 Mg PO DAILY Gabapentin 100 Mg Cap 100 Mg PO TID 30 Days Klonopin (Clonazepam) 0.5 Mg Tab 0.5 Mg PO TID 30 Days Reported Duoneb (Ipratropium-Albuterol Neb) 0.5-2.5 Mg/3 Ml Neb 1 Nebule INH PRN Narrative Medication List of her home medications reviewed from the nursing note. Review of Systems ROS Limitations: Intoxication Except as stated in HPI: all other systems reviewed are Neg Neurologic: Positive: Syncope Physical Exam Narrative GENERAL: Awake, alert, mildly intoxicated, answering questions appropriately, emaciated, c-collar SKIN: Focused skin assessment warm/dry. HEAD: Atraumatic. Normocephalic. EYES: Pupils equal and round. No scleral icterus. No injection or drainage. ENT: No nasal bleeding or discharge. Mucous membranes pink and moist. NECK: Trachea midline. No JVD. CARDIOVASCULAR: Regular rate and rhythm. No murmur appreciated. RESPIRATORY: No accessory muscle use. Clear to auscultation. Breath sounds equal bilaterally. GASTROINTESTINAL: Abdomen soft, non-tender, nondistended. Hepatic and splenic margins not palpable. MUSCULOSKELETAL: No obvious deformities. No clubbing. No cyanosis. No edema. NEUROLOGICAL: Awake and alert. No obvious cranial nerve deficits. Motor grossly within normal limits. Normal speech. PSYCHIATRIC: Appropriate mood and affect; insight and judgment normal. Data Data Last Documented VS Orders Orders Electrocardiogram (11/30/16 20:59) Complete Blood Count With Diff (11/30/16 20:59) Comprehensive Metabolic Panel (11/30/16 20:59) Magnesium (Mg) (11/30/16 20:59) Troponin I (11/30/16 20:59) Urinalysis - C+S If Indicated (11/30/16 20:59) Chest, Single Ap (11/30/16 20:59) Ct Brain W/O Iv Contrast(Rout) (11/30/16 20:59) Ecg Monitoring (11/30/16 20:59) Iv Access Insert/Monitor (11/30/16 20:59) Oximetry (11/30/16 20:59) Sodium Chloride 0.9% Flush (Ns Flush) (11/30/16 21:00) Sodium Chlor 0.9% 1000 Ml Inj (Ns 1000 M (11/30/16 20:59) Ondansetron Inj (Zofran Inj) (11/30/16 21:00) Thiamine Inj (Thiamine Inj) (11/30/16 21:00) Ct Cerv Spine W/O Contrast (11/30/16 ) Alcohol (Ethanol) (11/30/16 20:59) Drug Screen, Random Urine (11/30/16 20:59) Labs Laboratory Tests Test 11/30/16 21:00 White Blood Count 6.2 TH/MM3 Red Blood Count 3.46 MIL/MM3 Hemoglobin 11.2 GM/DL Hematocrit 32.5 % Mean Corpuscular Volume 93.8 FL Mean Corpuscular Hemoglobin 32.4 PG Mean Corpuscular Hemoglobin Concent 34.6 % Red Cell Distribution Width 13.9 % Platelet Count 340 TH/MM3 Mean Platelet Volume 7.4 FL Neutrophils (%) (Auto) 29.2 % Lymphocytes (%) (Auto) 56.5 % Monocytes (%) (Auto) 8.9 % Eosinophils (%) (Auto) 2.2 % Basophils (%) (Auto) 3.2 % Neutrophils # (Auto) 1.8 TH/MM3 Lymphocytes # (Auto) 3.5 TH/MM3 Monocytes # (Auto) 0.6 TH/MM3 Eosinophils # (Auto) 0.1 TH/MM3 Basophils # (Auto) 0.2 TH/MM3 CBC Comment AUTO DIFF Differential Total Cells Counted 100 Neutrophils % (Manual) 31 % Lymphocytes % 60 % Monocytes % 4 % Eosinophils % 3 % Basophils % 2 % Neutrophils # (Manual) 1.9 TH/MM3 Differential Comment FINAL DIFF MANUAL Atypical Lymphocytes % Platelet Estimate NORMAL Platelet Morphology Comment NORMAL Red Cell Morphology Comment NORMAL Urine Color LIGHT-YELLOW Urine Turbidity CLEAR Urine pH 8.0 Urine Specific [place] 1.004 Urine Protein NEG mg/dL Urine Glucose (UA) NEG mg/dL Urine Ketones NEG mg/dL Urine Occult Blood NEG Urine Nitrite NEG Urine Bilirubin NEG Urine Urobilinogen LESS THAN 2.0 MG/DL Urine Leukocyte Esterase NEG Urine RBC LESS THAN 1 /hpf Urine WBC 1 /hpf Urine Squamous Epithelial Cells 1 /hpf Microscopic Urinalysis Comment CULT NOT INDICATED Blood Urea Nitrogen 5 MG/DL Creatinine 0.87 MG/DL Random Glucose 76 MG/DL Total Protein 5.8 GM/DL Albumin 3.1 GM/DL Calcium Level 7.8 MG/DL Magnesium Level 1.7 MG/DL Alkaline Phosphatase 68 U/L Aspartate Amino Transf (AST/SGOT) 30 U/L Alanine Aminotransferase (ALT/SGPT) 24 U/L Total Bilirubin 0.2 MG/DL Sodium Level 139 MEQ/L Potassium Level 3.6 MEQ/L Chloride Level 105 MEQ/L Carbon Dioxide Level 25.8 MEQ/L Anion Gap 8 MEQ/L Estimat Glomerular Filtration Rate 71 ML/MIN Troponin I LESS THAN 0.02 NG/ML Urine Opiates Screen NEG Urine Barbiturates Screen NEG Urine Amphetamines Screen NEG Urine Benzodiazepines Screen POS Urine Cocaine Screen NEG Urine Cannabinoids Screen NEG Ethyl Alcohol Level 242 MG/DL MDM Medical Decision Making Medical Screen Exam Complete: Yes Emergency Medical Condition: Yes Medical Record Reviewed: Yes Interpretation(s) Twelve-lead EKG was reviewed by me. Normal sinus rhythm, normal axis, nonspecific ST-T wave changes. Heart rate of 69 bpm. Differential Diagnosis Alcohol intoxication, electrolyte abnormality, cardiac arrhythmia, intracranial bleed Narrative Course 10:[address] C-spine and CT head were within normal limits and the c-collar was taken off. Blood test results of back and within acceptable limits. Alcohol level is close to 250. I've medically cleared her. Once she is clinically sober patient will be discharged patient was given IV fluid bolus and IM thiamine. She was complaining of nausea and Zofran was given. Her calcium is slightly low and I will order by mouth calcium. Procedures EKG Prior to Arrival: Yes Diagnosis Primary Impression: Chronic alcohol abuse Additional Impressions: Syncope Qualified Codes: R55 - Syncope and collapse Head injury Qualified Codes: S09.90XA - Unspecified injury of head, initial encounter Acute alcohol intoxication Qualified Codes: F10.929 - Alcohol use, unspecified with intoxication, unspecified Referrals: Primary Care Physician Additional Instructions: Please return to [facility] to get alcoholic rehabilitation. Eat a healthy diet. Return to the ER if the condition worsens or any other new concerns. Med/Other Pt SpecificInfo: No Change to Meds Disposition: 01 DISCHARGE HOME Condition: Stable Alyssa Flanagan MD Nov 30, 2016 20:51
[2016-11-30] MEDS ORDERED: SODIUM CHLOR 0.9% 1000 ML INJ 1,000 ML IV ONE (20:59)
[2016-11-30] MEDS ORDERED: ONDANSETRON HCL 4 MG/2 ML VIAL IV PUSH ONE (21:00)
[2016-11-30] MEDS ORDERED: SODIUM CHLORIDE 0.9% FLUSH 10 ML FLUSH IVF PRN (21:00)
[2016-11-30] MEDS ORDERED: THIAMINE HCL 200 MG/2 ML VIAL IM ONE (21:00)
[2016-11-30 21:26] VITALS: RESP 16; O2SAT 99
--- NOTE | 2016-11-30 21:33 | RADRPT ---
EXAM DATE/TIME: 11/30/2016 21:09 [facility] COMPARISON: No previous studies available for comparison. INDICATIONS : Syncope. Fell, hit back of head. RADIATION DOSE: 28.04 CTDIvol (mGy) MEDICAL HISTORY : Chronic obstructive pulmonary disease. Cirrhosis. SURGICAL HISTORY : None. ENCOUNTER: Initial ACUITY: 1 day PAIN SCALE: 5/10 LOCATION: cranial TECHNIQUE: Multiple contiguous axial images were obtained of the head. Using automated exposure control and adj ustment of the mA and/or kV according to patient size, radiation dose was kept as low as reasonably a chievable to obtain optimal diagnostic quality images. DICOM format image data is available electro nically for review and comparison. FINDINGS: There is no evidence for intracranial hemorrhage, mass effect, mass lesions, edema, or extra-axial fl uid collections. The visualized bony structures appear intact. The ventricles are normal size for t he patient's age. There are no signs of acute infarction for technique. CONCLUSION: Unremarkable study. Kayla Downs MD on November 30, 2016 at 21:31 Board Certified Radiologist. This report was verified electronically.
--- NOTE | 2016-11-30 21:37 | RADRPT ---
EXAM DATE/TIME: 11/30/2016 21:09 [facility] COMPARISON: No previous studies available for comparison. INDICATIONS : Trauma, fall. RADIATION DOSE: 17.73 CTDIvol (mGy) MEDICAL HISTORY : Chronic obstructive pulmonary disease. Cirrhosis. SURGICAL HISTORY : None. ENCOUNTER: Initial ACUITY: 1 day PAIN SCALE: 5/10 LOCATION: neck TECHNIQUE: Volumetric scanning of the cervical spine was performed. Multiplanar reconstructions in the sagittal, coronal and oblique axial planes were performed. Using automated exposure control and adjustment o f the mA and/or kV according to patient size, radiation dose was kept as low as reasonably achievable to obtain optimal diagnostic quality images. DICOM format image data is available electronically f or review and comparison. FINDINGS: No significant subluxation or soft tissue swelling is seen. No definite fracture is seen for techniqu e. C2-C3: No appreciable compromised to the thecal sac, exiting nerve roots are seen. The neural natacha joaquin are patent bilaterally. No appreciable thecal sac stenosis is seen. C3-C4: No appreciable compromised to the thecal sac, exiting nerve roots are seen. The neural natacha joaquin are patent bilaterally. No appreciable thecal sac stenosis is seen. C4-C5: No appreciable compromised to the thecal sac, exiting nerve roots are seen. The neural natacha joaquin are patent bilaterally. No appreciable thecal sac stenosis is seen. C5-C6: No appreciable compromised to the thecal sac, exiting nerve roots are seen. The neural natacha joaquin are patent bilaterally. No appreciable thecal sac stenosis is seen. C6-C7: No appreciable compromised to the thecal sac, exiting nerve roots are seen. The neural natacha joaquin are patent bilaterally. No appreciable thecal sac stenosis is seen. C7-T1: No appreciable compromised to the thecal sac, exiting nerve roots are seen. The neural natacha joaquin are patent bilaterally. No appreciable thecal sac stenosis is seen CONCLUSION: Unremarkable study. Kayla Downs MD on November 30, 2016 at 21:32 Board Certified Radiologist. This report was verified electronically.
[2016-11-30 21:56] LABS: BLOOD, URINE NEG (NEG); COMMENT (UR) CULT NOT INDICATED; CULTURE IF INDICATED CULT NOT INDICATED; GLUCOSE,URINE NEG (NEG); KETONE, URINE NEG (NEG); NITRITE,URINE NEG (NEG); SQUAMOUS EPITHELIAL CELL URINE 1 /hpf (0-5); URINE COLOR LIGHT-YELLOW (YELLW/STRAW)
[2016-11-30 22:01] LABS: AUTOMATED NEUTROPHIL # 1.8 TH/MM3 (1.8-7.7); BASOPHIL # 0.2 TH/MM3 (0-0.2); BASOPHIL % 3.2 % (0.0-2.0); EOSINOPHIL # 0.1 TH/MM3 (0-0.4); EOSINOPHIL % 2.2 % (0.0-4.0); HEMATOCRIT 32.5 % (35.0-46.0); LYMPH % 56.5 % (9.0-44.0); LYMPHOCYTE # 3.5 TH/MM3 (1.0-4.8); MEAN CELL VOLUME 93.8 FL (80.0-100.0); MEAN CORPUSCULAR HEMOGLOBIN 32.4 PG (27.0-34.0); MEAN CORPUSCULAR HGB CONC 34.6 % (32.0-36.0); MONO % 8.9 % (0.0-8.0); NEUT % 29.2 % (16.0-70.0); PLATELET COUNT 340 TH/MM3 (150-450); RED BLOOD COUNT 3.46 MIL/MM3 (4.00-5.30); RED CELL DISTRIBUTION WIDTH 13.9 % (11.6-17.2); WHITE BLOOD COUNT 6.2 TH/MM3 (4.0-11.0)
--- NOTE | 2016-11-30 22:04 | RADRPT ---
EXAM DATE/TIME: 11/30/2016 22:12 [facility] COMPARISON: CHEST SINGLE AP, August 21, 2016, 19:04. INDICATIONS : Weakness. MEDICAL HISTORY : None. SURGICAL HISTORY : None. ENCOUNTER: Initial ACUITY: 3 days PAIN SCORE: 0/10 LOCATION: Bilateral chest FINDINGS: The lungs are clear without infiltrate, nodule, or mass. There is no appreciable pleural effusion fo r technique. Heart and mediastinum are unremarkable. CONCLUSION: No acute cardiopulmonary disease. Kayla Downs MD on November 30, 2016 at 22:02 Board Certified Radiologist. This report was verified electronically.
[2016-11-30 22:06] LABS: HEMO FLAGS AUTO DIFF
[2016-11-30 22:21] LABS: ALKALINE PHOSPHATASE 68 U/L (45-117); ALT (GPT) 24 U/L (10-53); ANION GAP 8 MEQ/L (5-15); AST (GOT) 30 U/L (15-37); BICARBONATE 25.8 MEQ/L (21.0-32.0); BLOOD UREA NITROGEN 5 MG/DL (7-18); CHLORIDE 105 MEQ/L (98-107); GLOMERULAR FILTRATION RATE 71 ML/MIN (>89); MAGNESIUM 1.7 MG/DL (1.5-2.5); POTASSIUM 3.6 MEQ/L (3.5-5.1); SODIUM (NA) 139 MEQ/L (136-145); TOTAL BILIRUBIN ADULT 0.2 MG/DL (0.2-1.0)
[2016-11-30 22:25] LABS: ALCOHOL 242 MG/DL (0-5)
[2016-11-30 23:08] LABS: BASOPHILS 2 % (0-2); EOSINOPHILS 3 % (0-4); NEUTROPHIL # MANUAL DIFF 1.9 TH/MM3 (1.8-7.7); POLYS (SEG NEUTROPHILS) 31 % (16-70); SCAN/DIFF FINAL DIFF MANUAL; WBC DIFF SAMPLE 100
[2016-11-30 23:09] LABS: PLATELET ESTIMATE SMEAR NORMAL (NORMAL); PLATELET MORPHOLOGY NORMAL (NORMAL)
[2016-11-30 23:46] VITALS: BP 115/80; PULSE 64; RESP 14; O2SAT 96
--- NOTE | 2016-12-01 21:25 | EKG ---
Date Performed: 11/30/2016 Time Performed: 22:24:21 PTAGE: 41 years EKG: Sinus rhythm NORMAL ECG PREVIOUS TRACING : 11/28/2016 15.15 Compared to the previous tracing rate slower DOCTOR: Brett Rosas Interpretating Date/Time 12/01/2016 21:24:52
== END 2016-12-01 03:21 | disposition home or self-care (01) ==
LOC: NEPE 20:30
DX: S09.90XA Unspecified injury of head, initial encounter (principal); W18.30XA Fall on same level, unspecified, initial encounter; R55 Syncope and collapse; F10.929 Alcohol use, unspecified with intoxication, unspecified; F31.9 Bipolar disorder, unspecified; F41.9 Anxiety disorder, unspecified; K21.9 Gastro-esophageal reflux disease without esophagitis; J44.9 Chronic obstructive pulmonary disease, unspecified
CPT/HCPCS: 70450; 71010; 72125; 80053; 80307; 81001; 83735; 84484; 85007; 85027; 93005; 96372; 96374; 99285; J2405; J3411; J7030

== ENCOUNTER 2016-12-13 17:31 | Emergency (ER) | payer OTHER ==
[~2016-12-13] VITALS: Ht 157.5 cm; Wt 34.0 kg
[~2016-12-13 17:31] MED LIST changes: +TRAZ100T10 PO; -TRAZ100T6 PO
[2016-12-13 17:43] VITALS: BP 95/58; PULSE 91; RESP 16; TEMP 98.7; O2SAT 100
[2016-12-13 18:43] VITALS: BP 98/58; PULSE 88; RESP 18; TEMP 98.4; O2SAT 98
--- NOTE | 2016-12-13 19:28 | PD ---
HPI Chief Complaint: Psychiatric Symptoms Time Seen by Provider: 19:24 Travel History International Travel<30 days: No Contact w/Intl Traveler<30days: No Traveled to known affect area: No History of Present Illness HPI This patient was examined in the presence of a female nurse. 41-year-old female presents under [place] act initiated by the Police Department. The patient reports a history of depression, she's been feeling increasing depression over the past few weeks. Today she cut her left wrist with a razor at 3 PM. She then called the police. She reports that she has been drinking alcohol today. She denies any true suicidal intent or homicidal intent. She reports that she sees a psychiatrist at [facility]. She is complaining of laceration of left wrist as well as nausea. She denies any numbness, tingling, weakness. Her last tetanus vaccination is unknown. No other complaints. PFSH Past Medical History Hx Anticoagulant Therapy: No Anemia: Yes Arthritis: Yes Asthma: No Autoimmune Disease: No Blood Disorders: No Bipolar Disorder: Yes Anxiety: Yes Depression: Yes Heart Rhythm Problems: No Cancer: Yes ( melanoma abdomen) Cardiovascular Problems: No High Cholesterol: No Chemotherapy: No Chest Pain: No Congestive Heart Failure: No Cirrhosis: Yes (DX WITH FATTY LIVER 10-15 YEARS AGO) COPD: No Cerebrovascular Accident: No Developmental Delay: No Diabetes: No Diminished Hearing: No Endocrine: No Gastrointestinal Disorders: Yes (DELAYED GASTRIC EMPTYING, ) GERD: Yes Genitourinary: No Hiatal Hernia: Yes Hypertension: No Immune Disorder: No Implanted Vascular Access Dvce: No Insomnia: Yes Kidney Stones: No Musculoskeletal: Yes (few months ago) Neurologic: Yes Psychiatric: Yes (anorexia and bulimia) Reproductive: No Respiratory: Yes (COPD) Integumentary: Yes (07/2010- MRSA TO BILATERAL ARMS) Immunizations Current: Yes Migraines: Yes Myocardial Infarction: No Pancreatitis: Yes Radiation Therapy: No Renal Failure: No Seizures: Yes (last night questionable ) Sleep Apnea: No Thyroid Disease: No Ulcer: Yes ?: Unknown Menopausal: Yes : 3 Para: 1 Miscarriage: 1 : 1 Past Surgical History Abdominal Surgery: No AICD: No Arteriovenous Shunt: No Cardiac Surgery: No Ear Surgery: No Endocrine Surgery: No Eye Surgery: Yes (PT STATES SHE HAD EYE SURGERY FOR "LAZY EYE" WHEN SHE WAS 3 YEARS OLD.) Genitourinary Surgery: No Gynecologic Surgery: No Hysterectomy: No Insulin Pump: No Joint Replacement: No Neurologic Surgery: No Oral Surgery: No Pacemaker: No Thoracic Surgery: No Other Surgery: Yes (MALIGNANT MELONOMA ABD LLQ, JULY 2009) Social History Alcohol Use: Yes Tobacco Use: Yes Substance Use: No Allergies-Medications (Allergen,Severity, Reaction): Coded Allergies: lithium (Unverified Allergy, Severe, Seizures, 11/30/16) *MDRO Multi-Drug Resistant Organism (Verified Adverse Reaction, Unknown, Cleared 01/12/16, 11/30/16) MRSA (skin) - 07/2010 MRSA PCR Screens NEGATIVE - 12/10/15 & 01/12/16 Cleared per Infection Control Reported Meds & Prescriptions Reported Meds & Active Scripts Active Pantoprazole (Pantoprazole Sodium) 40 Mg Tab 40 Mg PO DAILY 30 Days Latuda (Lurasidone) 40 Mg Tab 40 Mg PO HS 30 Days Trazodone (Trazodone HCl) 100 Mg Tablet 200 Mg PO HS Fluoxetine (Fluoxetine HCl) 60 Mg Tab 60 Mg PO DAILY Gabapentin 100 Mg Cap 100 Mg PO TID 30 Days Klonopin (Clonazepam) 0.5 Mg Tab 0.5 Mg PO TID 30 Days Reported Duoneb (Ipratropium-Albuterol Neb) 0.5-2.5 Mg/3 Ml Neb 1 Nebule INH PRN Review of Systems Except as stated in HPI: all other systems reviewed are Neg Physical Exam Narrative GENERAL: This is a frail female who appears older than her stated age. SKIN: Warm and dry. The patient has linear superficial lacerations to the volar left wrist approximately 1-2 cm in length and parallel. HEAD: Atraumatic. Normocephalic. EYES: Pupils equal and round. No scleral icterus. No injection or drainage. ENT: No nasal bleeding or discharge. Mucous membranes pink and moist. NECK: Trachea midline. No JVD. CARDIOVASCULAR: Regular rate and rhythm. No murmur appreciated. RESPIRATORY: No accessory muscle use. Clear to auscultation. Breath sounds equal bilaterally. GASTROINTESTINAL: Abdomen soft, non-tender, nondistended. MUSCULOSKELETAL: Skin as noted above with no bony deformity. There is no flexor tendon involvement. The patient maintains full range of motion of the left hand, wrist with full strength. Distal sensation, pulses preserved. NEUROLOGICAL: Awake and alert. No obvious cranial nerve deficits. Motor grossly within normal limits. Normal speech. Psychiatric: Insight and judgment appear normal. Depressed mood. Data Data Last Documented VS Vital Signs Date Time Temp Pulse Resp B/P (MAP) Pulse Ox O2 Delivery O2 Flow Rate FiO2 12/13/16 18:43 98.4 88 18 98/58 (71) 98 Room Air Orders Orders Complete Blood Count With Diff (12/13/16 18:51) Comprehensive Metabolic Panel (12/13/16 18:51) Psych Screen (12/13/16 18:51) Drug Screen, Random Urine (12/13/16 18:51) Alcohol (Ethanol) (12/13/16 18:51) Ed Urine Pregnancytest Poc (12/13/16 19:07) Ondansetron Odt (Zofran Odt) (12/13/16 19:30) Labs Laboratory Tests Test 12/13/16 18:00 12/13/16 18:40 Urine Opiates Screen NEG Urine Barbiturates Screen NEG Urine Amphetamines Screen NEG Urine Benzodiazepines Screen POS Urine Cocaine Screen NEG Urine Cannabinoids Screen NEG White Blood Count 5.0 TH/MM3 Red Blood Count 3.78 MIL/MM3 Hemoglobin 12.0 GM/DL Hematocrit 34.8 % Mean Corpuscular Volume 92.0 FL Mean Corpuscular Hemoglobin 31.7 PG Mean Corpuscular Hemoglobin Concent 34.5 % Red Cell Distribution Width 13.5 % Platelet Count 423 TH/MM3 Mean Platelet Volume 6.9 FL Neutrophils (%) (Auto) 40.1 % Lymphocytes (%) (Auto) 46.8 % Monocytes (%) (Auto) 8.3 % Eosinophils (%) (Auto) 1.8 % Basophils (%) (Auto) 3.0 % Neutrophils # (Auto) 2.0 TH/MM3 Lymphocytes # (Auto) 2.4 TH/MM3 Monocytes # (Auto) 0.4 TH/MM3 Eosinophils # (Auto) 0.1 TH/MM3 Basophils # (Auto) 0.2 TH/MM3 CBC Comment DIFF FINAL Differential Comment Blood Urea Nitrogen 6 MG/DL Creatinine 0.98 MG/DL Random Glucose 85 MG/DL Total Protein 6.9 GM/DL Albumin 3.7 GM/DL Calcium Level 8.6 MG/DL Alkaline Phosphatase 72 U/L Aspartate Amino Transf (AST/SGOT) 45 U/L Alanine Aminotransferase (ALT/SGPT) 37 U/L Total Bilirubin 0.2 MG/DL Sodium Level 134 MEQ/L Potassium Level 3.6 MEQ/L Chloride Level 93 MEQ/L Carbon Dioxide Level 31.2 MEQ/L Anion Gap 10 MEQ/L Estimat Glomerular Filtration Rate 62 ML/MIN Ethyl Alcohol Level 268 MG/DL MDM Medical Decision Making Medical Screen Exam Complete: Yes Emergency Medical Condition: Yes Medical Record Reviewed: Yes Differential Diagnosis Major depressive disorder, acute psychosis, alcohol intoxication, adjustment reaction Narrative Course Mental health screening discussed with the patient. Psychiatric screen ordered. Tetanus status will be updated. The lacerations were repaired with Dermabond, she verbally consented. Alcohol level 268. The patient is medically cleared for psychiatric disposition. Procedures Procedure Narrative LACERATION LOCATION: Left wrist LENGTH: 1.5 cm NUMBER OF STITCHES/FAHAD: Dermabond REPAIR: The wound was copiously irrigated and explored without evidence of foreign body, tendon injury or neurovascular injury. The wound was closed using Dermabond. This was a single layer repair. A sterile dressing was applied. The patient was advised to keep the dressing clean and dry. Patient tolerated the procedure well. Diagnosis Primary Impression: Depression Qualified Codes: F32.9 - Major depressive disorder, single episode, unspecified Additional Impression: Laceration of left wrist Frederic Vaca Dec 13, 2016 19:28
[2016-12-13] MEDS ORDERED: ONDANSETRON ODT 4 MG TAB PO ONE (19:30)
[2016-12-13 19:37] LABS: BASOPHIL # 0.2 TH/MM3 (0-0.2); EOSINOPHIL # 0.1 TH/MM3 (0-0.4); EOSINOPHIL % 1.8 % (0.0-4.0); HEMATOCRIT 34.8 % (35.0-46.0); HEMO FLAGS DIFF FINAL; LYMPH % 46.8 % (9.0-44.0); LYMPHOCYTE # 2.4 TH/MM3 (1.0-4.8); MEAN CORPUSCULAR HEMOGLOBIN 31.7 PG (27.0-34.0); MEAN CORPUSCULAR HGB CONC 34.5 % (32.0-36.0); MONO % 8.3 % (0.0-8.0); NEUT % 40.1 % (16.0-70.0); PLATELET COUNT 423 TH/MM3 (150-450); RED BLOOD COUNT 3.78 MIL/MM3 (4.00-5.30); RED CELL DISTRIBUTION WIDTH 13.5 % (11.6-17.2)
[2016-12-13 19:59] LABS: ANION GAP 10 MEQ/L (5-15); AST (GOT) 45 U/L (15-37); BICARBONATE 31.2 MEQ/L (21.0-32.0); BLOOD UREA NITROGEN 6 MG/DL (7-18); CHLORIDE 93 MEQ/L (98-107); GLOMERULAR FILTRATION RATE 62 ML/MIN (>89); POTASSIUM 3.6 MEQ/L (3.5-5.1); SODIUM (NA) 134 MEQ/L (136-145)
[2016-12-13 20:01] LABS: ALT (GPT) 37 U/L (10-53)
[2016-12-13 20:03] LABS: ALKALINE PHOSPHATASE 72 U/L (45-117); TOTAL BILIRUBIN ADULT 0.2 MG/DL (0.2-1.0)
[2016-12-13 20:04] LABS: ALCOHOL 268 MG/DL (0-5)
[2016-12-13] MEDS ORDERED: NICOTINE 14 MG/24 HR PATCH T-DERMAL ONE (22:45)
[2016-12-13] MEDS ORDERED: traZODone HCL 100 MG TAB PO ONE (22:45)
[2016-12-14 06:34] VITALS: BP 111/62; PULSE 107; RESP 18; O2SAT 97
[2016-12-14] MEDS ORDERED: FLUMAZENIL 0.5 MG/5 ML VIAL IV PUSH PRN (08:15)
[2016-12-14] MEDS ORDERED: LORazepam 2 MG/ML VIAL IV PUSH PRN ×4 (08:15)
[2016-12-14] MEDS ORDERED: LORazepam 2 MG TAB PO PRN (08:15)
[2016-12-14] MEDS: LORazepam 1 MG TAB PO PRN ×2 (08:17→12:38)
[2016-12-14 12:36] VITALS: BP 129/65; PULSE 105; RESP 18; O2SAT 96
[2016-12-14 12:38] VITALS: BP 129/65; PULSE 105; RESP 18; O2SAT 96
[2016-12-14 13:46] VITALS: BP 130/63; PULSE 104; RESP 18; TEMP 99.9; O2SAT 95
--- NOTE | 2016-12-14 14:52 | PD ---
History of Present Illness Chief Complaint: Psychiatric Symptoms Time Seen by Provider: 14:45 Travel History International Travel<30 Days: No Contact w/Intl Traveler<30days: No Known affected area: No Legal Status Legal Status: Leroy Act Leroy Act Signed By: Rolanda Sterling History of Present Illness: 41-year-old female Rad acted for making suicidal comments while drinking alcohol. Patient is known to this physician. She is no longer intoxicated and she denies any suicidal or homicidal ideation, plan or intent. She has no psychotic symptoms and her cognition is intact. She is verbally estephanie for safety and she is competent to do so. She is stating she prefers to go to AA meetings and wants to stop drinking. PFSH Past Medical History Hx Anticoagulant Therapy: No Anemia: Yes Arthritis: Yes Asthma: No Autoimmune Disease: No Blood Disorders: No Bipolar Disorder: Yes Anxiety: Yes Depression: Yes Heart Rhythm Problems: No Cancer: Yes ( melanoma abdomen) Cardiovascular Problems: No High Cholesterol: No Chemotherapy: No Chest Pain: No Congestive Heart Failure: No Cirrhosis: Yes (DX WITH FATTY LIVER 10-15 YEARS AGO) COPD: No Cerebrovascular Accident: No Developmental Delay: No Diabetes: No Diminished Hearing: No Endocrine: No Gastrointestinal Disorders: Yes (DELAYED GASTRIC EMPTYING, ) GERD: Yes Genitourinary: No Hiatal Hernia: Yes Hypertension: No Immune Disorder: No Implanted Vascular Access Dvce: No Insomnia: Yes Kidney Stones: No Musculoskeletal: Yes (few months ago) Neurologic: Yes Psychiatric: Yes (anorexia and bulimia) Reproductive: No Respiratory: Yes (COPD) Integumentary: Yes (07/2010- MRSA TO BILATERAL ARMS) Immunizations Current: Yes Migraines: Yes Myocardial Infarction: No Pancreatitis: Yes Radiation Therapy: No Renal Failure: No Seizures: Yes (last night questionable ) Sleep Apnea: No Thyroid Disease: No Ulcer: Yes ?: Unknown Menopausal: Yes : 3 Para: 1 Miscarriage: 1 : 1 Past Surgical History Abdominal Surgery: No AICD: No Arteriovenous Shunt: No Cardiac Surgery: No Ear Surgery: No Endocrine Surgery: No Eye Surgery: Yes (PT STATES SHE HAD EYE SURGERY FOR "LAZY EYE" WHEN SHE WAS 3 YEARS OLD.) Genitourinary Surgery: No Gynecologic Surgery: No Hysterectomy: No Insulin Pump: No Joint Replacement: No Neurologic Surgery: No Oral Surgery: No Pacemaker: No Thoracic Surgery: No Other Surgery: Yes (MALIGNANT MELONOMA ABD LLQ, JULY 2009) Psychiatric History Psychiatric History Hx Psychiatric Treatment: ADMITTED TO [facility] AND [facility] IN THE PAST. LAST ADMIT TO [facility] WAS Nov TO . History of Inpatient Treatment: Yes Guns or firearms in home: No Social History Hx Alcohol Use: Yes Hx Tobacco Use: Yes Hx Substance Use: Yes Substance Use Type: Alcohol Other Substances Used: PT STATES " WHEN I DRINK ITS VODKA" 2-5 DRINKS Hx of Substance Use Treatment: Yes Allergies-Medications (Allergen,Severity, Reaction): Coded Allergies: lithium (Unverified Allergy, Severe, Seizures, 11/30/16) *MDRO Multi-Drug Resistant Organism (Verified Adverse Reaction, Unknown, Cleared 01/12/16, 11/30/16) MRSA (skin) - 07/2010 MRSA PCR Screens NEGATIVE - 12/10/15 & 01/12/16 Cleared per Infection Control Reported Meds & Prescriptions Reported Meds & Active Scripts Active Pantoprazole (Pantoprazole Sodium) 40 Mg Tab 40 Mg PO DAILY 30 Days Latuda (Lurasidone) 40 Mg Tab 40 Mg PO HS 30 Days Trazodone (Trazodone HCl) 100 Mg Tablet 200 Mg PO HS Fluoxetine (Fluoxetine HCl) 60 Mg Tab 60 Mg PO DAILY Gabapentin 100 Mg Cap 100 Mg PO TID 30 Days Klonopin (Clonazepam) 0.5 Mg Tab 0.5 Mg PO TID 30 Days Reported Duoneb (Ipratropium-Albuterol Neb) 0.5-2.5 Mg/3 Ml Neb 1 Nebule INH PRN Review of Systems Except as stated in HPI: all other systems reviewed are Neg Mental Status Examination Appearance: Appropriate Consciousness: Alert Orientation: x4 Motor Activity: Normal gait Speech: Unremarkable Language: Adequate Fund of Knowledge: Adequate Attention and Concentration: Adequate Memory: Unremarkable Mood: Appropriate Affect: Appropriate Thought Process & Associations: Intact Thought Content: Appropriate Hallucination Type: None Delusion Type: None Suicidal Ideation: No Suicidal Plan: No Suicidal Intention: No Homicidal Ideation: No Homicidal Plan: No Homicidal Intention: No Insight: Adequate Judgment: Adequate [facility] Medical Decision Making Medical Record Reviewed: Yes Assessment/Plan Patient interviewed at bedside, medical record reviewed and case discussed with nurse Hever. Patient denies suicidal or homicidal ideation, plan or intent. She verbally contracts for safety and she is competent to do so. Her main problem remains alcohol abuse. Patient plans to return to . Orders Orders Complete Blood Count With Diff (12/13/16 18:51) Comprehensive Metabolic Panel (12/13/16 18:51) Psych Screen (12/13/16 18:51) Drug Screen, Random Urine (12/13/16 18:51) Alcohol (Ethanol) (12/13/16 18:51) Ed Urine Pregnancytest Poc (12/13/16 19:07) Ondansetron Odt (Zofran Odt) (12/13/16 19:30) Trazodone (Desyrel) (12/13/16 22:45) Nicotine 14 Mg Patch.24 Hr (Habitrol 14 (12/13/16 22:45) Diet Regular Basic (12/14/16 Breakfast) Alcohol Withdrawal Asmt-Ciwa ONCE (12/14/16 08:13) Flumazenil Inj (Romazicon Inj) (12/14/16 08:15) Lorazepam (Ativan) (12/14/16 08:15) Lorazepam Inj (Ativan Inj) (12/14/16 08:15) Lorazepam (Ativan) (12/14/16 08:15) Lorazepam Inj (Ativan Inj) (12/14/16 08:15) Lorazepam Inj (Ativan Inj) (12/14/16 08:15) Lorazepam Inj (Ativan Inj) (12/14/16 08:15) Diet Regular Basic (12/14/16 Lunch) Results Vital Signs Date Time Temp Pulse Resp B/P (MAP) Pulse Ox O2 Delivery O2 Flow Rate FiO2 12/14/16 13:46 99.9 104 18 130/63 (85) 95 Room Air 12/14/16 12:38 105 18 129/65 (86) 96 Room Air 12/14/16 12:36 105 18 129/65 (86) 96 Room Air 12/14/16 06:34 107 18 111/62 (78) 97 12/13/16 18:43 98.4 88 18 98/58 (71) 98 Room Air 12/13/16 17:43 98.7 91 16 95/58 (70) 100 Laboratory Tests Test 12/13/16 18:00 12/13/16 18:40 Urine Opiates Screen NEG Urine Barbiturates Screen NEG Urine Amphetamines Screen NEG Urine Benzodiazepines Screen POS Urine Cocaine Screen NEG Urine Cannabinoids Screen NEG White Blood Count 5.0 Red Blood Count 3.78 Hemoglobin 12.0 Hematocrit 34.8 Mean Corpuscular Volume 92.0 Mean Corpuscular Hemoglobin 31.7 Mean Corpuscular Hemoglobin Concent 34.5 Red Cell Distribution Width 13.5 Platelet Count 423 Mean Platelet Volume 6.9 Neutrophils (%) (Auto) 40.1 Lymphocytes (%) (Auto) 46.8 Monocytes (%) (Auto) 8.3 Eosinophils (%) (Auto) 1.8 Basophils (%) (Auto) 3.0 Neutrophils # (Auto) 2.0 Lymphocytes # (Auto) 2.4 Monocytes # (Auto) 0.4 Eosinophils # (Auto) 0.1 Basophils # (Auto) 0.2 CBC Comment DIFF FINAL Differential Comment Blood Urea Nitrogen 6 Creatinine 0.98 Random Glucose 85 Total Protein 6.9 Albumin 3.7 Calcium Level 8.6 Alkaline Phosphatase 72 Aspartate Amino Transf (AST/SGOT) 45 Alanine Aminotransferase (ALT/SGPT) 37 Total Bilirubin 0.2 Sodium Level 134 Potassium Level 3.6 Chloride Level 93 Carbon Dioxide Level 31.2 Anion Gap 10 Estimat Glomerular Filtration Rate 62 Ethyl Alcohol Level 268 Diagnosis Primary Impression: Alcohol abuse Eugenio Watkins MD Dec 14, 2016 14:52
--- NOTE | 2016-12-14 15:11 | PD ---
Physical Exam Date Seen by Provider: Dec 14, 2016 Time Seen by Provider: 15:11 Narrative 41-year-old female patient cleared psychiatrically and medically from our facility. I was asked to disposition the patient. Data Data Last Documented VS Vital Signs Date Time Temp Pulse Resp B/P (MAP) Pulse Ox O2 Delivery O2 Flow Rate FiO2 12/14/16 15:00 12/14/16 13:46 99.9 104 18 95 Room Air Orders Orders Complete Blood Count With Diff (12/13/16 18:51) Comprehensive Metabolic Panel (12/13/16 18:51) Psych Screen (12/13/16 18:51) Drug Screen, Random Urine (12/13/16 18:51) Alcohol (Ethanol) (12/13/16 18:51) Ed Urine Pregnancytest Poc (12/13/16 19:07) Ondansetron Odt (Zofran Odt) (12/13/16 19:30) Trazodone (Desyrel) (12/13/16 22:45) Nicotine 14 Mg Patch.24 Hr (Habitrol 14 (12/13/16 22:45) Diet Regular Basic (12/14/16 Breakfast) Alcohol Withdrawal Asmt-Ciwa ONCE (12/14/16 08:13) Flumazenil Inj (Romazicon Inj) (12/14/16 08:15) Lorazepam (Ativan) (12/14/16 08:15) Lorazepam Inj (Ativan Inj) (12/14/16 08:15) Lorazepam (Ativan) (12/14/16 08:15) Lorazepam Inj (Ativan Inj) (12/14/16 08:15) Lorazepam Inj (Ativan Inj) (12/14/16 08:15) Lorazepam Inj (Ativan Inj) (12/14/16 08:15) Diet Regular Basic (12/14/16 Lunch) Labs Laboratory Tests Test 12/13/16 18:00 12/13/16 18:40 Urine Opiates Screen NEG Urine Barbiturates Screen NEG Urine Amphetamines Screen NEG Urine Benzodiazepines Screen POS Urine Cocaine Screen NEG Urine Cannabinoids Screen NEG White Blood Count 5.0 TH/MM3 Red Blood Count 3.78 MIL/MM3 Hemoglobin 12.0 GM/DL Hematocrit 34.8 % Mean Corpuscular Volume 92.0 FL Mean Corpuscular Hemoglobin 31.7 PG Mean Corpuscular Hemoglobin Concent 34.5 % Red Cell Distribution Width 13.5 % Platelet Count 423 TH/MM3 Mean Platelet Volume 6.9 FL Neutrophils (%) (Auto) 40.1 % Lymphocytes (%) (Auto) 46.8 % Monocytes (%) (Auto) 8.3 % Eosinophils (%) (Auto) 1.8 % Basophils (%) (Auto) 3.0 % Neutrophils # (Auto) 2.0 TH/MM3 Lymphocytes # (Auto) 2.4 TH/MM3 Monocytes # (Auto) 0.4 TH/MM3 Eosinophils # (Auto) 0.1 TH/MM3 Basophils # (Auto) 0.2 TH/MM3 CBC Comment DIFF FINAL Differential Comment Blood Urea Nitrogen 6 MG/DL Creatinine 0.98 MG/DL Random Glucose 85 MG/DL Total Protein 6.9 GM/DL Albumin 3.7 GM/DL Calcium Level 8.6 MG/DL Alkaline Phosphatase 72 U/L Aspartate Amino Transf (AST/SGOT) 45 U/L Alanine Aminotransferase (ALT/SGPT) 37 U/L Total Bilirubin 0.2 MG/DL Sodium Level 134 MEQ/L Potassium Level 3.6 MEQ/L Chloride Level 93 MEQ/L Carbon Dioxide Level 31.2 MEQ/L Anion Gap 10 MEQ/L Estimat Glomerular Filtration Rate 62 ML/MIN Ethyl Alcohol Level 268 MG/DL MDM Supervised Visit with TD: Yes Differential Diagnosis Depression versus suicidal ideation versus anxiety versus adjustment disorder versus mood disorder versus bipolar disorder versus schizophrenia versus paranoid disorder versus psychosis versus substance abuse versus alcohol abuse versus alcohol induced psychosis versus homicidality addition versus cutting versus personality disorder Narrative Course 41-year-old patient cleared psychiatrically and medically from our facility. Patient has no homicidal or suicidal ideations at this time. Patient has no physiological complaints at this time. Patient will be discharged home with instructions to follow-up with Jason Harris/ [facility]. Diagnosis Primary Impression: Alcohol abuse Referrals: [facility] (Out patient) as needed Medication Management [facility] as needed Mental Health and Substance Abuse inpatient facility [facility] Patient Instructions: General Instructions, Abuse of Alcohol (ED), Medical Clearance for Psychiatric Care (ED) Additional Instruction: DX: Alcohol Abuse Please return to ED if symptoms worsen Disposition: 01 DISCHARGE HOME Condition: Stable Christine Haile [facility] Dec 14, 2016 15:11
== END 2016-12-14 16:55 | disposition home or self-care (01) ==
LOC: NEPJ 17:31
DX: S61.512A Laceration without foreign body of left wrist, initial encounter (principal); F32.9 Major depressive disorder, single episode, unspecified; F10.10 Alcohol abuse, uncomplicated; X78.8XXA Intentional self-harm by other sharp object, initial encounter; Y90.8 Blood alcohol level of 240 mg/100 ml or more; Z72.0 Tobacco use; Z79.899 Other long term (current) drug therapy
CPT/HCPCS: 12001; 80053; 80307; 84703; 85025; 90471

== ENCOUNTER 2017-01-02 11:48 | Emergency (ER) | payer SELFPAY ==
[~2017-01-02] VITALS: Ht 157.5 cm; Wt 30.0 kg
[2017-01-02 11:51] VITALS: BP 100/59; PULSE 109; RESP 16; TEMP 98.2
[2017-01-02] MEDS ORDERED: SODIUM CHLOR 0.9% 1000 ML INJ 1,000 ML IV SCH (12:14)
[2017-01-02] MEDS ORDERED: SODIUM CHLORIDE 0.9% FLUSH 10 ML FLUSH IV FLUSH PRN (12:15)
[2017-01-02] MEDS ORDERED: ONDANSETRON HCL 4 MG/2 ML VIAL IVP ONE (12:15)
--- NOTE | 2017-01-02 12:23 | PD ---
HPI Chief Complaint: GI Complaint Time Seen by Provider: 12:14 Travel History International Travel<30 days: No Contact w/Intl Traveler<30days: No Traveled to known affect area: No History of Present Illness HPI c/o 4-6 days worth of n/v/d over last week or so, during which she had been in alcohol detox. patient was ex parte for such treatment. pt now is brought here for continued n/v/d, lightheadedness able to tolerate po but just has no appetitie and chooses not to eat.....patient is also a fairly heavy alcoholic. PFSH Past Medical History Hx Anticoagulant Therapy: No Anemia: Yes Arthritis: Yes Asthma: No Autoimmune Disease: No Blood Disorders: No Bipolar Disorder: Yes Anxiety: Yes Depression: Yes Heart Rhythm Problems: No Cancer: Yes ( melanoma abdomen) Cardiovascular Problems: No High Cholesterol: No Chemotherapy: No Chest Pain: No Congestive Heart Failure: No Cirrhosis: Yes (DX WITH FATTY LIVER 10-15 YEARS AGO) COPD: No Cerebrovascular Accident: No Developmental Delay: No Diabetes: No Diminished Hearing: No Endocrine: No Gastrointestinal Disorders: Yes (DELAYED GASTRIC EMPTYING, ) GERD: Yes Genitourinary: No Hiatal Hernia: Yes Hypertension: No Immune Disorder: No Implanted Vascular Access Dvce: No Insomnia: Yes Kidney Stones: No Musculoskeletal: Yes (few months ago) Neurologic: Yes Psychiatric: Yes (anorexia and bulimia) Reproductive: No Respiratory: Yes (COPD) Integumentary: Yes (07/2010- MRSA TO BILATERAL ARMS) Immunizations Current: Yes Migraines: Yes Myocardial Infarction: No Pancreatitis: Yes Radiation Therapy: No Renal Failure: No Seizures: Yes (with detox) Sleep Apnea: No Thyroid Disease: No Ulcer: Yes Tetanus Vaccination: < 5 Years Influenza Vaccination: No ?: Not LMP: doesnt get Menopausal: Yes : 3 Para: 1 Miscarriage: 1 : 1 Past Surgical History Surgical History: No Previous Surgery Abdominal Surgery: No AICD: No Arteriovenous Shunt: No Cardiac Surgery: No Ear Surgery: No Endocrine Surgery: No Eye Surgery: Yes (PT STATES SHE HAD EYE SURGERY FOR "LAZY EYE" WHEN SHE WAS 3 YEARS OLD.) Genitourinary Surgery: No Gynecologic Surgery: No Hysterectomy: No Insulin Pump: No Joint Replacement: No Neurologic Surgery: No Oral Surgery: No Pacemaker: No Thoracic Surgery: No Other Surgery: Yes (MALIGNANT MELONOMA ABD LLQ, JULY 2009) Social History Alcohol Use: Yes (7 drinks a day 1 beer and minin shot today) Tobacco Use: Yes (1 pk) Substance Use: No Allergies-Medications (Allergen,Severity, Reaction): Coded Allergies: lithium (Unverified Allergy, Severe, Seizures, 01/02/17) *MDRO Multi-Drug Resistant Organism (Verified Adverse Reaction, Unknown, Cleared 01/12/16, 01/02/17) MRSA (skin) - 07/2010 MRSA PCR Screens NEGATIVE - 12/10/15 & 01/12/16 Cleared per Infection Control Reported Meds & Prescriptions Reported Meds & Active Scripts Active Pantoprazole (Pantoprazole Sodium) 40 Mg Tab 40 Mg PO DAILY 30 Days Latuda (Lurasidone) 40 Mg Tab 40 Mg PO HS 30 Days Trazodone (Trazodone HCl) 100 Mg Tablet 200 Mg PO HS Fluoxetine (Fluoxetine HCl) 60 Mg Tab 60 Mg PO DAILY Gabapentin 100 Mg Cap 100 Mg PO TID 30 Days Klonopin (Clonazepam) 0.5 Mg Tab 0.5 Mg PO TID 30 Days Reported Duoneb (Ipratropium-Albuterol Neb) 0.5-2.5 Mg/3 Ml Neb 1 Nebule INH PRN Review of Systems General / Constitutional: No: Fever Eyes: No: Visual changes HENT: No: Headaches Cardiovascular: No: Chest Pain or Discomfort Respiratory: No: Shortness of Breath Gastrointestinal: Positive: Nausea, Vomiting, Diarrhea Genitourinary: No: Dysuria Musculoskeletal: No: Pain Skin: No Rash Neurologic: No: Weakness Psychiatric: No: Depression Endocrine: No: Polydipsia Hematologic/Lymphatic: No: Easy Bruising Physical Exam Narrative GENERAL: cachectic appearing older than stated age, white female. (sig other at foot of bed) SKIN: Warm and dry. HEAD: Atraumatic. Normocephalic. EYES: Pupils equal and round. No scleral icterus. No injection or drainage. ENT: No nasal bleeding or discharge. Mucous membranes pink and moist. NECK: Trachea midline. No JVD. CARDIOVASCULAR: Regular rate and rhythm. RESPIRATORY: No accessory muscle use. Clear to auscultation. Breath sounds equal bilaterally. GASTROINTESTINAL: Abdomen soft, non-tender, nondistended. Hyperactive bowel sounds MUSCULOSKELETAL: Extremities without clubbing, cyanosis, or edema. No obvious deformities. NEUROLOGICAL: Awake and alert. No obvious cranial nerve deficits. Motor grossly within normal limits. Five out of 5 muscle strength in the arms and legs. Normal speech. PSYCHIATRIC: Appropriate mood and affect; insight and judgment normal. Data Data Last Documented VS Vital Signs Date Time Temp Pulse Resp B/P (MAP) Pulse Ox O2 Delivery O2 Flow Rate FiO2 01/02/17 12:56 98 Room Air 01/02/17 12:56 80 18 105/66 (79) 01/02/17 11:51 98.2 Orders Orders Complete Blood Count With Diff (01/02/17 12:14) Comprehensive Metabolic Panel (01/02/17 12:14) Lipase (01/02/17 12:14) Urinalysis - C+S If Indicated (01/02/17 12:14) Iv Access Insert/Monitor (01/02/17 12:14) Ecg Monitoring (01/02/17 12:14) Oximetry (01/02/17 12:14) Ondansetron Inj (Zofran Inj) (01/02/17 12:15) Sodium Chlor 0.9% 1000 Ml Inj (Ns 1000 M (01/02/17 12:14) Sodium Chloride 0.9% Flush (Ns Flush) (01/02/17 12:15) Electrocardiogram (01/02/17 12:14) Abdomen, Upright Only (01/02/17 12:14) Ed Urine Pregnancytest Poc (01/02/17 12:14) Troponin I (01/02/17 12:19) Alcohol (Ethanol) (01/02/17 12:19) Vascular Access Team Consult/P PRN (01/02/17 12:34) Vascular Poc Ultrasound (01/02/17 ) Urine Culture (01/02/17 12:50) Lorazepam Inj (Ativan Inj) (01/02/17 13:30) Ondansetron Odt (Zofran Odt) (01/02/17 14:30) Chlordiazepoxide (Librium) (01/02/17 15:45) Labs Laboratory Tests Test 01/02/17 12:50 01/02/17 13:45 Urine Collection Type CLEAN CATCH Urine Color YELLOW Urine Turbidity SLIGHT Urine pH 7.5 Urine Specific [place] 1.013 Urine Protein NEG mg/dL Urine Glucose (UA) NEG mg/dL Urine Ketones NEG mg/dL Urine Occult Blood NEG Urine Nitrite NEG Urine Bilirubin NEG Urine Leukocyte Esterase NEG Urine WBC 0-2 /hpf Urine Squamous Epithelial Cells 6-8 /hpf Urine Amorphous Sediment MOD Urine Bacteria MOD /hpf Urine Yeast (Budding) FEW Microscopic Urinalysis Comment CULTURE INDICATED Urine Collection Time 1250 White Blood Count 5.3 TH/MM3 Red Blood Count 3.94 MIL/MM3 Hemoglobin 11.5 GM/DL Hematocrit 35.3 % Mean Corpuscular Volume 89.6 FL Mean Corpuscular Hemoglobin 29.1 PG Mean Corpuscular Hemoglobin Concent 32.5 % Red Cell Distribution Width 12.5 % Platelet Count 377 TH/MM3 Mean Platelet Volume 6.5 FL Neutrophils (%) (Auto) 57.5 % Lymphocytes (%) (Auto) 33.6 % Monocytes (%) (Auto) 6.8 % Eosinophils (%) (Auto) 0.9 % Basophils (%) (Auto) 1.2 % Neutrophils # (Auto) 3.0 TH/MM3 Lymphocytes # (Auto) 1.8 TH/MM3 Monocytes # (Auto) 0.4 TH/MM3 Eosinophils # (Auto) 0.0 TH/MM3 Basophils # (Auto) 0.1 TH/MM3 CBC Comment DIFF FINAL Differential Comment Blood Urea Nitrogen 11 MG/DL Creatinine 0.81 MG/DL Random Glucose 83 MG/DL Total Protein 6.4 GM/DL Albumin 3.2 GM/DL Calcium Level 8.3 MG/DL Alkaline Phosphatase 83 U/L Aspartate Amino Transf (AST/SGOT) 32 U/L Alanine Aminotransferase (ALT/SGPT) 25 U/L Total Bilirubin 0.2 MG/DL Sodium Level 127 MEQ/L Potassium Level 3.2 MEQ/L Chloride Level 85 MEQ/L Carbon Dioxide Level 30.9 MEQ/L Anion Gap 11 MEQ/L Estimat Glomerular Filtration Rate 77 ML/MIN Troponin I LESS THAN 0.02 NG/ML Lipase 78 U/L Ethyl Alcohol Level 89 MG/DL [facility] Medical Decision Making Medical Screen Exam Complete: Yes Emergency Medical Condition: Yes Medical Record Reviewed: Yes Differential Diagnosis dehydration v egastroenteriti v withdrawal v hyponatremia/hypokalemia Narrative Course on evaluation patient has mild dehydration, mild hypokalemia and hyponatremia which can be treated with po rehydration. discussed with hospitalist who recc outpatient treatment and did not meet criteria for admission.....additionally patient was a difficult iv access Diagnosis Primary Impression: mild hyponatremia Additional Impression: mild hypokalemia Patient Instructions: General Instructions, Hypokalemia (ED), Hyponatremia (ED) Additional Instructions: potassium and sodium are only mildly low and are amenable to oral replacement. Scripts Chlordiazepoxide-Clidinium (Librax) 5-2.5 Mg Cap 2 CAP PO Q4-6H, #30 CAP 0 Refills Prov: Octavio Isidro MD 01/02/17 Ondansetron Odt (Zofran Odt) 4 Mg Tab 4 MG SL Q6HR Y for Nausea/Vomiting, #30 TAB 0 Refills Prov: Octavio Isidro MD 01/02/17 Disposition: 01 DISCHARGE HOME Condition: Stable Octavio Isidro MD Jan 02, 2017 12:23
--- NOTE | 2017-01-02 12:52 | RADRPT ---
EXAM DATE/TIME: 01/02/2017 12:15 CORRECTION Corrected on: January 04, 2017; fixed time [place] COMPARISON: CHEST SINGLE AP, November 30, 2016, 22:12. INDICATIONS : Nausea. Abdominal pain. MEDICAL HISTORY : None. SURGICAL HISTORY : None. ENCOUNTER: Initial ACUITY: 3 days PAIN SCORE: 7/10 LOCATION: Bilateral upper quadrant FINDINGS: A single erect view of the abdomen demonstrates the lower lungs to be clear. Oval nodular density pr ojects over the lower lateral right lung measuring 13 mm which has features characteristic of a nippl e shadow. No evidence of free intraperitoneal gas. The visualized bowel loops are unremarkable. CONCLUSION: No evidence of intracranial gas. Ronan Riley MD on January 02, 2017 at 12:49 Board Certified Radiologist. Board Certified Radiologist. This report was verified electronically.
[2017-01-02 12:56] VITALS: BP 105/66; PULSE 80; RESP 18; O2SAT 98
[2017-01-02 13:10] LABS: BLOOD, URINE NEG (NEG); GLUCOSE,URINE NEG (NEG); KETONE, URINE NEG (NEG); NITRITE,URINE NEG (NEG); PH, URINE 7.5 (5.0-8.5)
[2017-01-02 13:18] LABS: METHOD OF COLLECTION CLEAN CATCH; URINE COLOR YELLOW (YELLW/STRAW)
[2017-01-02 13:19] LABS: BACTERIA, URINE MOD /hpf; CULTURE IF INDICATED CULTURE INDICATED; WBC, URINE 0-2 /hpf (0-5)
[2017-01-02 13:20] LABS: COMMENT (UR) CULTURE INDICATED; COMMENT2 (UR) MUCOUS PRESENT
[2017-01-02] MEDS ORDERED: LORazepam 2 MG/ML VIAL IM ONE (13:30)
[2017-01-02 13:47] LABS: BASOPHIL # 0.1 TH/MM3 (0-0.2); BASOPHIL % 1.2 % (0.0-2.0); EOSINOPHIL % 0.9 % (0.0-4.0); HEMATOCRIT 35.3 % (35.0-46.0); HEMO FLAGS DIFF FINAL; LYMPH % 33.6 % (9.0-44.0); LYMPHOCYTE # 1.8 TH/MM3 (1.0-4.8); MEAN CELL VOLUME 89.6 FL (80.0-100.0); MEAN CORPUSCULAR HEMOGLOBIN 29.1 PG (27.0-34.0); MEAN CORPUSCULAR HGB CONC 32.5 % (32.0-36.0); MONO % 6.8 % (0.0-8.0); NEUT % 57.5 % (16.0-70.0); PLATELET COUNT 377 TH/MM3 (150-450); RED BLOOD COUNT 3.94 MIL/MM3 (4.00-5.30); RED CELL DISTRIBUTION WIDTH 12.5 % (11.6-17.2); WHITE BLOOD COUNT 5.3 TH/MM3 (4.0-11.0)
[2017-01-02 13:59] LABS: CHLORIDE 85 MEQ/L (98-107); POTASSIUM 3.2 MEQ/L (3.5-5.1); SODIUM (NA) 127 MEQ/L (136-145)
[2017-01-02 14:02] LABS: ANION GAP 11 MEQ/L (5-15); BICARBONATE 30.9 MEQ/L (21.0-32.0)
[2017-01-02 14:03] LABS: BLOOD UREA NITROGEN 11 MG/DL (7-18)
[2017-01-02 14:05] LABS: ALT (GPT) 25 U/L (10-53); AST (GOT) 32 U/L (15-37); GLOMERULAR FILTRATION RATE 77 ML/MIN (>89)
[2017-01-02 14:07] LABS: TOTAL BILIRUBIN ADULT 0.2 MG/DL (0.2-1.0)
[2017-01-02 14:08] LABS: ALKALINE PHOSPHATASE 83 U/L (45-117)
[2017-01-02 14:10] LABS: ALCOHOL 89 MG/DL (0-5)
[2017-01-02] MEDS ORDERED: ONDANSETRON ODT 4 MG TAB PO ONE ×2 (14:30→16:00)
[2017-01-02] MEDS ORDERED: LIBRAX PO (15:51)
[2017-01-02] MEDS ORDERED: ZOFR4TAB3 SL (15:51)
[2017-01-02 15:53] VITALS: BP 98/61; PULSE 90; RESP 18; O2SAT 98
[2017-01-02] MEDS ORDERED: POTA-163 PO (15:54)
[2017-01-02] MEDS ORDERED: chlordiazePOXIDE 25 MG CAP PO ONE (16:15)
--- NOTE | 2017-01-02 21:17 | EKG ---
Date Performed: 01/02/2017 Time Performed: 12:42:17 PTAGE: 41 years EKG: Sinus rhythm NONSPECIFIC T-WAVE ABNORMALITY BORDERLINE ECG PREVIOUS TRACING : 11/30/2016 22.24 Compared to previous tracing, nonspecific T wave abnormalit y is now present. DOCTOR: Artie Snow Interpretating Date/Time 01/02/2017 21:16:44
== END 2017-01-02 16:27 | disposition home or self-care (01) ==
LOC: PHED 11:48
DX: E87.1 Hypo-osmolality and hyponatremia (principal); E87.6 Hypokalemia; R82.71 Bacteriuria; F31.9 Bipolar disorder, unspecified; R94.31 Abnormal electrocardiogram [ECG] [EKG]; Z72.0 Tobacco use; Z79.899 Other long term (current) drug therapy
CPT/HCPCS: 74000; 76937; 80053; 80307; 81001; 83690; 84484; 84703; 85025; 87086; 93005; 96372; 99285; J2060

== ENCOUNTER 2017-01-15 16:06 | Emergency (ER) | payer SELFPAY ==
[~2017-01-15] VITALS: Ht 157.5 cm; Wt 32.0 kg
[~2017-01-15 16:06] MED LIST changes: +LIBRAX PO; +POTA-163 PO; +ZOFR4TAB3 SL
[2017-01-15 16:08] VITALS: BP 108/65; PULSE 84; RESP 16; TEMP 98.2; O2SAT 99
[2017-01-15] MEDS ORDERED: SODIUM CHLOR 0.9% 1000 ML INJ 1,000 ML IV SCH (17:28)
[2017-01-15] MEDS ORDERED: ONDANSETRON HCL 4 MG/2 ML VIAL IVP ONE (17:30)
[2017-01-15] MEDS ORDERED: SODIUM CHLORIDE 0.9% FLUSH 10 ML FLUSH IV FLUSH PRN (17:30)
--- NOTE | 2017-01-15 17:39 | PD ---
HPI Chief Complaint: GI Complaint Time Seen by Provider: 17:26 Travel History International Travel<30 days: No Contact w/Intl Traveler<30days: No Traveled to known affect area: No History of Present Illness HPI The patient was seen and examined in the presence of the nurse. This patient complains of nausea and malaise and abdominal cramps. This patient is an alcoholic who has anorexia and bulimia as well as gastroparesis. She denies drinking since she got out of alcohol rehabilitation 2 days ago. Severity is moderate. Duration 24 hours. No alleviating factors. She denies fever or active vomiting or diarrhea. No exacerbating factors. PFSH Past Medical History Hx Anticoagulant Therapy: No Anemia: Yes Arthritis: Yes Asthma: No Autoimmune Disease: No Blood Disorders: No Bipolar Disorder: Yes Anxiety: Yes Depression: Yes Heart Rhythm Problems: No Cancer: Yes ( melanoma abdomen) Cardiovascular Problems: No High Cholesterol: No Chemotherapy: No Chest Pain: No Congestive Heart Failure: No Cirrhosis: Yes (DX WITH FATTY LIVER 10-15 YEARS AGO) COPD: No Cerebrovascular Accident: No Developmental Delay: No Diabetes: No Diminished Hearing: No Endocrine: No Gastrointestinal Disorders: Yes (DELAYED GASTRIC EMPTYING, ) GERD: Yes Genitourinary: No Hiatal Hernia: Yes Hypertension: No Immune Disorder: No Implanted Vascular Access Dvce: No Insomnia: Yes Kidney Stones: No Musculoskeletal: Yes (few months ago) Neurologic: Yes Psychiatric: Yes (anorexia and bulimia) Reproductive: No Respiratory: Yes (COPD) Integumentary: Yes (07/2010- MRSA TO BILATERAL ARMS) Immunizations Current: Yes Migraines: Yes Myocardial Infarction: No Pancreatitis: Yes Radiation Therapy: No Renal Failure: No Seizures: Yes (with detox) Sleep Apnea: No Thyroid Disease: No Ulcer: Yes ?: Not Menopausal: Yes : 3 Para: 1 Miscarriage: 1 : 1 Past Surgical History Abdominal Surgery: No AICD: No Arteriovenous Shunt: No Cardiac Surgery: No Ear Surgery: No Endocrine Surgery: No Eye Surgery: Yes (PT STATES SHE HAD EYE SURGERY FOR "LAZY EYE" WHEN SHE WAS 3 YEARS OLD.) Genitourinary Surgery: No Gynecologic Surgery: No Hysterectomy: No Insulin Pump: No Joint Replacement: No Neurologic Surgery: No Oral Surgery: No Pacemaker: No Thoracic Surgery: No Other Surgery: Yes (MALIGNANT MELONOMA ABD LLQ, JULY 2009) Social History Alcohol Use: Yes (7 drinks a day 1 beer and minin shot today) Tobacco Use: Yes (1 pk) Substance Use: No Allergies-Medications (Allergen,Severity, Reaction): Coded Allergies: lithium (Unverified Allergy, Severe, Seizures, 01/02/17) *MDRO Multi-Drug Resistant Organism (Verified Adverse Reaction, Unknown, Cleared 01/12/16, 01/02/17) MRSA (skin) - 07/2010 MRSA PCR Screens NEGATIVE - 12/10/15 & 01/12/16 Cleared per Infection Control Reported Meds & Prescriptions Reported Meds & Active Scripts Active Zofran (Ondansetron HCl) 4 Mg Tab 4 Mg PO Q6HR PRN K-Vescent (Potassium Bicarbonate) 25 Meq Tab 50 Meq PO ONCE Librax (Chlordiazepoxide/Clidinium) 5-2.5 Mg Cap 2 Cap PO Q4-6H Pantoprazole (Pantoprazole Sodium) 40 Mg Tab 40 Mg PO DAILY 30 Days Latuda (Lurasidone) 40 Mg Tab 40 Mg PO HS 30 Days Trazodone (Trazodone HCl) 100 Mg Tablet 200 Mg PO HS Fluoxetine (Fluoxetine HCl) 60 Mg Tab 60 Mg PO DAILY Gabapentin 100 Mg Cap 100 Mg PO TID 30 Days Klonopin (Clonazepam) 0.5 Mg Tab 0.5 Mg PO TID 30 Days Reported Duoneb (Ipratropium-Albuterol Neb) 0.5-2.5 Mg/3 Ml Neb 1 Nebule INH PRN Review of Systems General / Constitutional: Positive: Weight Loss, No: Fever Eyes: No: Visual changes HENT: No: Headaches Cardiovascular: No: Chest Pain or Discomfort Respiratory: No: Shortness of Breath Gastrointestinal: Positive: Nausea, Loss of Appetite, No: Abdominal Pain Genitourinary: No: Dysuria Musculoskeletal: No: Pain Skin: No Rash Neurologic: No: Weakness Psychiatric: No: Depression Endocrine: No: Polydipsia Hematologic/Lymphatic: No: Easy Bruising Physical Exam Narrative GENERAL: Thin cachectic well-developed patient in no apparent distress. SKIN: Focused skin assessment reveals no rash and nodules. Skin is Warm and dry. HEAD: Atraumatic. Normocephalic. EYES: Pupils equal and round. No scleral icterus. No injection or drainage. ENT: No nasal bleeding or discharge. Mucous membranes pink and moist. NECK: Trachea midline. No JVD. CARDIOVASCULAR: Regular rate and rhythm. No murmur appreciated. RESPIRATORY: No accessory muscle use. Clear to auscultation. Breath sounds equal bilaterally. GASTROINTESTINAL: Abdomen soft, non-tender, nondistended. Hepatic and splenic margins not palpable. MUSCULOSKELETAL: No obvious deformities. No clubbing. No cyanosis. No edema. NEUROLOGICAL: Awake and alert. No obvious cranial nerve deficits. Motor grossly within normal limits. Normal speech. PSYCHIATRIC: Appropriate mood and affect; insight and judgment normal. Data Data Last Documented VS Vital Signs Date Time Temp Pulse Resp B/P (MAP) Pulse Ox O2 Delivery O2 Flow Rate FiO2 01/15/17 17:30 01/15/17 17:12 16 01/15/17 16:08 98.2 84 99 Orders Orders Beta Hcg (Quant/Titer) (01/15/17 17:28) Complete Blood Count With Diff (01/15/17 17:28) Comprehensive Metabolic Panel (01/15/17 17:28) Iv Access Insert/Monitor (01/15/17 17:28) NPO (01/15/17 17:28) Ondansetron Inj (Zofran Inj) (01/15/17 17:30) Sodium Chlor 0.9% 1000 Ml Inj (Ns 1000 M (01/15/17 17:28) Sodium Chloride 0.9% Flush (Ns Flush) (01/15/17 17:30) Ed Discharge Order (01/15/17 18:54) Labs Laboratory Tests Test 01/15/17 17:35 White Blood Count 5.4 TH/MM3 Red Blood Count 3.53 MIL/MM3 Hemoglobin 11.2 GM/DL Hematocrit 32.2 % Mean Corpuscular Volume 91.1 FL Mean Corpuscular Hemoglobin 31.6 PG Mean Corpuscular Hemoglobin Concent 34.7 % Red Cell Distribution Width 13.5 % Platelet Count 412 TH/MM3 Mean Platelet Volume 7.4 FL Neutrophils (%) (Auto) 23.6 % Lymphocytes (%) (Auto) 58.5 % Monocytes (%) (Auto) 11.7 % Eosinophils (%) (Auto) 2.7 % Basophils (%) (Auto) 3.5 % Neutrophils # (Auto) 1.3 TH/MM3 Lymphocytes # (Auto) 3.2 TH/MM3 Monocytes # (Auto) 0.6 TH/MM3 Eosinophils # (Auto) 0.1 TH/MM3 Basophils # (Auto) 0.2 TH/MM3 CBC Comment DIFF FINAL Differential Comment Blood Urea Nitrogen 6 MG/DL Creatinine 1.17 MG/DL Random Glucose 83 MG/DL Total Protein 7.1 GM/DL Albumin 3.9 GM/DL Calcium Level 10.3 MG/DL Alkaline Phosphatase 87 U/L Aspartate Amino Transf (AST/SGOT) 24 U/L Alanine Aminotransferase (ALT/SGPT) 47 U/L Total Bilirubin 0.2 MG/DL Sodium Level 128 MEQ/L Potassium Level 3.2 MEQ/L Chloride Level 85 MEQ/L Carbon Dioxide Level 38.5 MEQ/L Anion Gap 5 MEQ/L Estimat Glomerular Filtration Rate 50 ML/MIN Human Chorionic Gonadotropin, Quant LESS THAN 1 MIU/ML MDM Medical Decision Making Medical Screen Exam Complete: Yes Emergency Medical Condition: Yes Medical Record Reviewed: Yes Differential Diagnosis Gastroparesis, electrolyte abnormality, dehydration Narrative Course I have reviewed the patient's electronic medical record. Reviewed her visit from 2 weeks ago. She had mild hyponatremia 127 IV placed CBC is normal metabolic profile shows some hyponatremia and hypokalemia to be chronic/ baseline for this patient who has eating disorders and alcoholism LFT's are normal lipase is normal Beta hCG is negative I gave her a liter of normal saline IV and IV Zofran She is euvolemic We discussed treatment for hyponatremia of 128 in a patient with normal mental status and euvolemic is fluid restriction. I wrote her prescription for Zofran and a one-time potassium replacement dose Gave her the [facility] handout to call Tuesday for an appointment She is also on a waiting list for psychiatry evaluation Diagnosis Primary Impression: Nausea and vomiting Qualified Codes: R11.2 - Nausea with vomiting, unspecified Additional Impressions: Hypokalemia Hyponatremia Anorexia nervosa with bulimia Patient Instructions: General Instructions Departure Forms: Tests/Procedures Additional Instructions: The patient was advised to follow up with their physician and return if they worsen. Med/Other Pt SpecificInfo: Prescription(s) given Scripts Ondansetron (Zofran) 4 Mg Tab 4 MG PO Q6HR Y for NAUSEA OR VOMITING, #20 TAB 0 Refills Prov: Salinas Olivares MD 01/15/17 Potassium Bicarbonate Effervescent (K-Vescent) 25 Meq Tab 50 MEQ PO ONCE for Electrolyte Replacement, #2 TAB 0 Refills Prov: Salinas Olivares MD 01/15/17 Disposition: 01 DISCHARGE HOME Condition: Stable Salinas Olivares MD Jan 15, 2017 17:39
[2017-01-15 18:11] LABS: AUTOMATED NEUTROPHIL # 1.3 TH/MM3 (1.8-7.7); BASOPHIL # 0.2 TH/MM3 (0-0.2); BASOPHIL % 3.5 % (0.0-2.0); EOSINOPHIL # 0.1 TH/MM3 (0-0.4); EOSINOPHIL % 2.7 % (0.0-4.0); HEMATOCRIT 32.2 % (35.0-46.0); HEMO FLAGS DIFF FINAL; LYMPH % 58.5 % (9.0-44.0); LYMPHOCYTE # 3.2 TH/MM3 (1.0-4.8); MEAN CELL VOLUME 91.1 FL (80.0-100.0); MEAN CORPUSCULAR HEMOGLOBIN 31.6 PG (27.0-34.0); MEAN CORPUSCULAR HGB CONC 34.7 % (32.0-36.0); MONO % 11.7 % (0.0-8.0); NEUT % 23.6 % (16.0-70.0); PLATELET COUNT 412 TH/MM3 (150-450); RED BLOOD COUNT 3.53 MIL/MM3 (4.00-5.30); RED CELL DISTRIBUTION WIDTH 13.5 % (11.6-17.2); WHITE BLOOD COUNT 5.4 TH/MM3 (4.0-11.0)
[2017-01-15 18:34] LABS: ANION GAP 5 MEQ/L (5-15); AST (GOT) 24 U/L (15-37); BICARBONATE 38.5 MEQ/L (21.0-32.0); BLOOD UREA NITROGEN 6 MG/DL (7-18); CHLORIDE 85 MEQ/L (98-107); GLOMERULAR FILTRATION RATE 50 ML/MIN (>89); POTASSIUM 3.2 MEQ/L (3.5-5.1); SODIUM (NA) 128 MEQ/L (136-145)
[2017-01-15 18:35] LABS: ALT (GPT) 47 U/L (10-53)
[2017-01-15 18:39] LABS: ALKALINE PHOSPHATASE 87 U/L (45-117); BETA HCG QUANT LESS THAN 1 MIU/ML (0-5); TOTAL BILIRUBIN ADULT 0.2 MG/DL (0.2-1.0)
[2017-01-15] MEDS ORDERED: ZOFR4TAB PO (18:49)
[2017-01-15] MEDS ORDERED: KLORCONEF PO (18:49)
== END 2017-01-15 19:20 | disposition home or self-care (01) ==
LOC: NEPC 16:06
DX: F50.02 Anorexia nervosa, binge eating/purging type (principal); E87.6 Hypokalemia; E87.1 Hypo-osmolality and hyponatremia; F10.20 Alcohol dependence, uncomplicated; Z72.0 Tobacco use; Z79.899 Other long term (current) drug therapy
CPT/HCPCS: 80053; 84702; 85025; 96361; 96374; 99284; J2405; J7030

== ENCOUNTER 2017-07-19 08:26 | Emergency (ER) | payer SELFPAY ==
[~2017-07-19] VITALS: Ht 157.5 cm; Wt 44.0 kg
[~2017-07-19 08:26] MED LIST changes: +KLORCONEF PO; -POTA-163 PO; +ZOFR4TAB PO; -ZOFR4TAB3 SL
[2017-07-19 08:36] VITALS: BP 101/66; PULSE 85; RESP 16; TEMP 97.6; O2SAT 97
--- NOTE | 2017-07-19 08:56 | PD ---
HPI Chief Complaint: Cold / Flu Symptoms Time Seen by Provider: 08:41 Travel History International Travel<30 days: No Contact w/Intl Traveler<30days: No Traveled to known affect area: No History of Present Illness HPI The patient is a 41-year-old female who presents to the emergency department for cough, congestion, and fever of 1 month's duration. The patient states she has had some nasal congestion for the last month, now has an occasional productive cough producing yellow sputum. However, she states the cough is mostly dry nonproductive. The patient does note fevers intermittently for the last month, as high as 103. She does have a history of previous pneumonia with ICU admission and intubation, several years ago at [facility]. The patient does note intermittent chills and sweats. The patient denies any known history of lung carcinoma, congestive heart failure, pulmonary embolism, or DVT. She does have a nebulizer at home but has not been using the nebulizer. She does have a history of tobacco use, smoking approximately 6 cigarettes daily for the last month as her symptoms have progressed. The patient does not have a primary physician secondary to insurance related issues. The patient also notes a 5 pound weight loss for the last month. She denies any current nausea, vomiting, diarrhea, or abdominal pain. Symptoms are moderate. The patient denies any recent international travel. The patient denies any history of pertussis, HIV, or tuberculosis. PFSH Past Medical History Hx Anticoagulant Therapy: No Anemia: Yes Arthritis: Yes Asthma: No Autoimmune Disease: No Blood Disorders: No Bipolar Disorder: Yes Anxiety: Yes Depression: Yes Heart Rhythm Problems: No Cancer: Yes ( melanoma abdomen) Cardiovascular Problems: No High Cholesterol: No Chemotherapy: No Chest Pain: No Congestive Heart Failure: No Cirrhosis: Yes (DX WITH FATTY LIVER 10-15 YEARS AGO) COPD: No Cerebrovascular Accident: No Developmental Delay: No Diabetes: No Diminished Hearing: No Endocrine: No Gastrointestinal Disorders: Yes (DELAYED GASTRIC EMPTYING, ) GERD: Yes Genitourinary: No Hiatal Hernia: Yes Hypertension: No Immune Disorder: No Implanted Vascular Access Dvce: No Insomnia: Yes Kidney Stones: No Musculoskeletal: Yes (few months ago) Neurologic: Yes Psychiatric: Yes (anorexia and bulimia) Reproductive: No Respiratory: Yes (COPD) Integumentary: Yes (07/2010- MRSA TO BILATERAL ARMS) Immunizations Current: Yes Migraines: Yes Myocardial Infarction: No Pancreatitis: Yes Radiation Therapy: No Renal Failure: No Seizures: Yes (with detox) Sleep Apnea: No Thyroid Disease: No Ulcer: Yes Menopausal: Yes : 3 Para: 1 Miscarriage: 1 : 1 Past Surgical History Abdominal Surgery: No AICD: No Arteriovenous Shunt: No Cardiac Surgery: No Ear Surgery: No Endocrine Surgery: No Eye Surgery: Yes (PT STATES SHE HAD EYE SURGERY FOR "LAZY EYE" WHEN SHE WAS 3 YEARS OLD.) Genitourinary Surgery: No Gynecologic Surgery: No Hysterectomy: No Insulin Pump: No Joint Replacement: No Neurologic Surgery: No Oral Surgery: No Pacemaker: No Thoracic Surgery: No Other Surgery: Yes (MALIGNANT MELONOMA ABD LLQ, JULY 2009) Social History Alcohol Use: Yes (7 drinks a day 1 beer and minin shot today) Tobacco Use: Yes (1 pk) Substance Use: No Allergies-Medications (Allergen,Severity, Reaction): Coded Allergies: lithium (Unverified Allergy, Severe, Seizures, 01/02/17) *MDRO Multi-Drug Resistant Organism (Verified Adverse Reaction, Unknown, Cleared 01/12/16, 01/02/17) MRSA (skin) - 07/2010 MRSA PCR Screens NEGATIVE - 12/10/15 & 01/12/16 Cleared per Infection Control Reported Meds & Prescriptions Reported Meds & Active Scripts Active Zofran (Ondansetron HCl) 4 Mg Tab 4 Mg PO Q6HR PRN K-Vescent (Potassium Bicarbonate) 25 Meq Tab 50 Meq PO ONCE Librax (Chlordiazepoxide/Clidinium) 5-2.5 Mg Cap 2 Cap PO Q4-6H Pantoprazole (Pantoprazole Sodium) 40 Mg Tab 40 Mg PO DAILY 30 Days Latuda (Lurasidone) 40 Mg Tab 40 Mg PO HS 30 Days Trazodone (Trazodone HCl) 100 Mg Tablet 200 Mg PO HS Fluoxetine (Fluoxetine HCl) 60 Mg Tab 60 Mg PO DAILY Gabapentin 100 Mg Cap 100 Mg PO TID 30 Days Klonopin (Clonazepam) 0.5 Mg Tab 0.5 Mg PO TID 30 Days Reported Duoneb (Ipratropium-Albuterol Neb) 0.5-2.5 Mg/3 Ml Neb 1 Nebule INH PRN Review of Systems Except as stated in HPI: all other systems reviewed are Neg General / Constitutional: Positive: Fever, Chills, Weight Loss (5 pound weight loss) HENT: Positive: Lightheadedness, Congestion Cardiovascular: No: Chest Pain or Discomfort Respiratory: Positive: Cough, Shortness of Breath Gastrointestinal: No: Nausea, Vomiting, Diarrhea, Abdominal Pain Genitourinary: No: Dysuria Neurologic: No: Headache Psychiatric: Positive: Depression (History of depression, takes multiple medications currently) Physical Exam Narrative GENERAL: Awake, alert, pleasant 41-year-old female who appears her stated age and is in no acute respiratory distress. SKIN: Focused skin assessment warm/dry. HEAD: Atraumatic. Normocephalic. EYES: No injection or drainage. ENT: No nasal bleeding or discharge. Upper and lower dentures present. NECK: Trachea midline. No JVD. CARDIOVASCULAR: Regular rate and rhythm. No murmur appreciated. RESPIRATORY: No accessory muscle use. Few scattered rhonchi. GASTROINTESTINAL: Abdomen soft, non-tender, nondistended. No rebound tenderness. MUSCULOSKELETAL: No obvious deformities. No clubbing. No cyanosis. No edema. Calves are soft bilaterally. NEUROLOGICAL: Awake and alert. No obvious cranial nerve deficits. Motor grossly within normal limits. Normal speech. PSYCHIATRIC: Appropriate mood and affect; insight and judgment normal. Data Data Last Documented VS Vital Signs Date Time Temp Pulse Resp B/P (MAP) Pulse Ox O2 Delivery O2 Flow Rate FiO2 07/19/17 10:25 76 18 105/53 (70) 98 Room Air 07/19/17 09:06 21 07/19/17 08:36 97.6 Orders Orders Complete Blood Count With Diff (07/19/17 08:49) Comprehensive Metabolic Panel (07/19/17 08:49) B-Type Natriuretic Peptide (07/19/17 08:49) Magnesium (Mg) (07/19/17 08:49) Blood Culture (07/19/17 08:49) Iv Access Insert/Monitor (07/19/17 08:49) Electrocardiogram (07/19/17 08:49) Ecg Monitoring (07/19/17 08:49) Oximetry (07/19/17 08:49) Oxygen Administration (07/19/17 08:49) Chest, Pa & Lat (07/19/17 08:49) Sodium Chloride 0.9% Flush (Ns Flush) (07/19/17 09:00) Methylprednisolone So Succ Inj (Solumedr (07/19/17 09:00) Albuterol-Ipratropium Neb (Duoneb Neb) (07/19/17 09:00) Lactic Acid (07/19/17 08:49) Sodium Chlor 0.9% 1000 Ml Inj (Ns 1000 M (07/19/17 09:00) Lidocaine Pf 4% Neb (Lidocaine Pf 4% Neb (07/19/17 09:00) Vascular Access Team Consult/P PRN (07/19/17 09:16) Vascular Poc Ultrasound (07/19/17 ) Magnesium (Mg) (07/19/17 11:16) Potassium Chloride (Kcl) (07/19/17 11:30) Potassium Chlor 20 Meq Premix (Kcl 20 Me (07/19/17 11:30) Labs Laboratory Tests Test 07/19/17 10:15 White Blood Count 9.0 TH/MM3 Red Blood Count 4.21 MIL/MM3 Hemoglobin 12.3 GM/DL Hematocrit 36.1 % Mean Corpuscular Volume 85.7 FL Mean Corpuscular Hemoglobin 29.2 PG Mean Corpuscular Hemoglobin Concent 34.1 % Red Cell Distribution Width 14.4 % Platelet Count 577 TH/MM3 Mean Platelet Volume 6.4 FL Neutrophils (%) (Auto) 66.8 % Lymphocytes (%) (Auto) 20.3 % Monocytes (%) (Auto) 9.5 % Eosinophils (%) (Auto) 2.3 % Basophils (%) (Auto) 1.1 % Neutrophils # (Auto) 6.0 TH/MM3 Lymphocytes # (Auto) 1.8 TH/MM3 Monocytes # (Auto) 0.9 TH/MM3 Eosinophils # (Auto) 0.2 TH/MM3 Basophils # (Auto) 0.1 TH/MM3 CBC Comment DIFF FINAL Differential Comment Blood Urea Nitrogen 8 MG/DL Creatinine 1.07 MG/DL Random Glucose 94 MG/DL Total Protein 7.6 GM/DL Albumin 3.5 GM/DL Calcium Level 9.2 MG/DL Magnesium Level 2.0 MG/DL Alkaline Phosphatase 105 U/L Aspartate Amino Transf (AST/SGOT) 19 U/L Alanine Aminotransferase (ALT/SGPT) 14 U/L Total Bilirubin 0.3 MG/DL Sodium Level 126 MEQ/L Potassium Level 2.4 MEQ/L Chloride Level 76 MEQ/L Carbon Dioxide Level 38.1 MEQ/L Anion Gap 12 MEQ/L Estimat Glomerular Filtration Rate 56 ML/MIN Lactic Acid Level 1.2 mmol/L [facility] Medical Decision Making Medical Screen Exam Complete: Yes Emergency Medical Condition: Yes Medical Record Reviewed: Yes Interpretation(s) EKG reveals a normal sinus rhythm with a rate of 73. No ischemic changes or ectopy noted. Last Impressions Chest X-Ray 07/19/17 0895 Signed Impressions: CONCLUSION: 1. COPD 2. No evidence of acute process. Laboratory Tests Test 07/19/17 10:15 White Blood Count 9.0 TH/MM3 Red Blood Count 4.21 MIL/MM3 Hemoglobin 12.3 GM/DL Hematocrit 36.1 % Mean Corpuscular Volume 85.7 FL Mean Corpuscular Hemoglobin 29.2 PG Mean Corpuscular Hemoglobin Concent 34.1 % Red Cell Distribution Width 14.4 % Platelet Count 577 TH/MM3 Mean Platelet Volume 6.4 FL Neutrophils (%) (Auto) 66.8 % Lymphocytes (%) (Auto) 20.3 % Monocytes (%) (Auto) 9.5 % Eosinophils (%) (Auto) 2.3 % Basophils (%) (Auto) 1.1 % Neutrophils # (Auto) 6.0 TH/MM3 Lymphocytes # (Auto) 1.8 TH/MM3 Monocytes # (Auto) 0.9 TH/MM3 Eosinophils # (Auto) 0.2 TH/MM3 Basophils # (Auto) 0.1 TH/MM3 CBC Comment DIFF FINAL Differential Comment Blood Urea Nitrogen 8 MG/DL Creatinine 1.07 MG/DL Random Glucose 94 MG/DL Total Protein 7.6 GM/DL Albumin 3.5 GM/DL Calcium Level 9.2 MG/DL Magnesium Level 2.0 MG/DL Alkaline Phosphatase 105 U/L Aspartate Amino Transf (AST/SGOT) 19 U/L Alanine Aminotransferase (ALT/SGPT) 14 U/L Total Bilirubin 0.3 MG/DL Sodium Level 126 MEQ/L Potassium Level 2.4 MEQ/L Chloride Level 76 MEQ/L Carbon Dioxide Level 38.1 MEQ/L Anion Gap 12 MEQ/L Estimat Glomerular Filtration Rate 56 ML/MIN Lactic Acid Level 1.2 mmol/L Differential Diagnosis Differential diagnosis includes bronchitis, pneumonia, pleural effusion, TB, lung carcinoma, postnasal drip, sinusitis, influenza, viral syndrome. Narrative Course IV was established, labs are drawn and sent, and the patient was placed on cardiac telemetry monitoring and continuous pulse oximetry monitoring. EKG was ordered and interpreted. Chest x-ray was obtained. The patient was administered Solu-Medrol 125 mg intravenously and duo neb with respiratory lidocaine. Chest x-ray is unremarkable. The patient's white count is normal, sodium is low at 126. Previous sodium on 01/04/2017 was 127 on January 15, 2017 was 128. She does have a previous history of alcohol abuse, denies any current alcohol abuse. The patient is advised to stop smoking. She will be treated for bronchitis. She will be referred to the [facility], she will need a repeat BMP in several weeks. She is advised to return if symptoms worsen or progress. She will be provided a copy of her x-ray results and lab results at discharge. Her potassium was noted to be low at 2.5, this was replaced orally and intravenously. Diagnosis Primary Impression: Bronchitis Additional Impressions: Hyponatremia Hypokalemia Referrals: [facility] 1 week Patient Instructions: General Instructions Additional Instructions: Medications as directed. Follow-up with your primary physician. Return if symptoms worsen or progress. Follow-up at the [facility] for repeat BMP in 1 -2 weeks. Med/Other Pt SpecificInfo: Prescription(s) given Scripts Azithromycin (Zithromax Z-Joni) 250 Mg Dspk 250 MG PO DIRECTED for Infection, #1 DSPK 0 Refills 500 MG (2 tabs) day 1, then 1 tab days 2-5. Prov: Yayo Engel MD 07/19/17 Albuterol Neb (Albuterol Neb) 2.5 Mg/3 Ml Neb 2.5 MG NEB Q4HR NEB Y for SHORTNESS OF BREATH, #60 NEBULE 0 Refills Prov: Yayo Engel MD 07/19/17 Prednisone (Prednisone) 20 Mg Tab 40 MG PO DAILY, #10 TAB 0 Refills Take 40 mg (2 tablets) daily for 5 days Prov: Yayo Engel MD 07/19/17 Disposition: 01 DISCHARGE HOME Condition: Stable Yayo Engel MD Jul 19, 2017 08:56
[2017-07-19] MEDS ORDERED: RESP: ALBUTEROL 2.5 MG/IPRATROPIUM 0.5 MG NEB (SCH) INH ONE (09:00)
[2017-07-19] MEDS ORDERED: methylPREDNISolone SOD SUCC 125 MG/2 ML VIAL IV PUSH ONE (09:00)
[2017-07-19] MEDS ORDERED: SODIUM CHLORIDE 0.9% FLUSH 10 ML FLUSH IVF PRN (09:00)
[2017-07-19] MEDS ORDERED: SODIUM CHLOR 0.9% 1000 ML INJ 1,000 ML IV ONE (09:00)
[2017-07-19] MEDS ORDERED: RESP: LIDOCAINE HCL 4% PF 5 ML NEB NEB ONE (09:00)
[2017-07-19 09:06] VITALS: O2SAT 98
[2017-07-19 09:17] VITALS: O2SAT 96
--- NOTE | 2017-07-19 09:48 | RADRPT ---
EXAM DATE: 07/19/2017 9:43 AM EDT AGE/SEX: 41 years / Female INDICATIONS: Shortness of breath. CLINICAL DATA: This is the patient's initial encounter. Patient reports that signs and symptoms have been present for 3 days and indicates a pain score of 0/10. MEDICAL/SURGICAL HISTORY: None. None. COMPARISON: [facility], CHEST PA & LAT, 02/12/2016. . FINDINGS: Lungs are hyperinflated but otherwise clear. There is no evidence of acute airspace disease. There ar e no mass densities or effusions. Heart and mediastinal structures are unremarkable. Osseous structures appear intact. CONCLUSION: 1. COPD 2. No evidence of acute process. Electronically signed by: Tanner Harrison MD 07/19/2017 9:47 AM EDT
[2017-07-19 10:25] VITALS: BP 105/53; PULSE 76; RESP 18; O2SAT 98
[2017-07-19 10:43] LABS: BASOPHIL # 0.1 TH/MM3 (0-0.2); BASOPHIL % 1.1 % (0.0-2.0); EOSINOPHIL # 0.2 TH/MM3 (0-0.4); EOSINOPHIL % 2.3 % (0.0-4.0); HEMATOCRIT 36.1 % (35.0-46.0); HEMOGLOBIN 12.3 GM/DL (11.6-15.3); LYMPH % 20.3 % (9.0-44.0); LYMPHOCYTE # 1.8 TH/MM3 (1.0-4.8); MEAN CELL VOLUME 85.7 FL (80.0-100.0); MEAN CORPUSCULAR HEMOGLOBIN 29.2 PG (27.0-34.0); MEAN CORPUSCULAR HGB CONC 34.1 % (32.0-36.0); MEAN PLATELET VOLUME 6.4 FL (7.0-11.0); MONO % 9.5 % (0.0-8.0); MONOCYTE # 0.9 TH/MM3 (0-0.9); NEUT % 66.8 % (16.0-70.0); PLATELET COUNT 577 TH/MM3 (150-450); RED BLOOD COUNT 4.21 MIL/MM3 (4.00-5.30); RED CELL DISTRIBUTION WIDTH 14.4 % (11.6-17.2)
[2017-07-19 11:06] LABS: ALBUMIN 3.5 GM/DL (3.4-5.0); ALT (GPT) 14 U/L (10-53); AST (GOT) 19 U/L (15-37); BICARBONATE 38.1 MEQ/L (21.0-32.0); BLOOD UREA NITROGEN 8 MG/DL (7-18); CALCIUM 9.2 MG/DL (8.5-10.1); CHLORIDE 76 MEQ/L (98-107); CREATININE 1.07 MG/DL (0.50-1.00); GLOMERULAR FILTRATION RATE 56 ML/MIN (>89); GLUCOSE,RANDOM 94 MG/DL (74-106); SODIUM (NA) 126 MEQ/L (136-145)
[2017-07-19 11:07] LABS: ALKALINE PHOSPHATASE 105 U/L (45-117); TOTAL BILIRUBIN ADULT 0.3 MG/DL (0.2-1.0); TOTAL PROTEIN 7.6 GM/DL (6.4-8.2)
[2017-07-19] MEDS ORDERED: ALBU0.08 NEB (11:23)
[2017-07-19] MEDS ORDERED: PRED20 PO (11:23)
[2017-07-19] MEDS ORDERED: ZITHTAB PO (11:23)
[2017-07-19] MEDS ORDERED: POTASSIUM CHLOR 20 MEQ PREMIX 100 ML IV ONE (11:30)
[2017-07-19] MEDS ORDERED: POTASSIUM CHLORIDE 20 MEQ CONTROLLED RELEASE TAB PO ONE (11:30)
[2017-07-19 12:40] VITALS: BP 107/63; PULSE 71; RESP 18; O2SAT 100
--- NOTE | 2017-07-19 14:02 | EKG ---
Date Performed: 07/19/2017 Time Performed: 09:05:22 PTAGE: 41 years EKG: Sinus rhythm NORMAL ECG Compared to prior electrocardiogram, Nonspecific T wave changes no longer present. . PREVIOUS TRACING : 01/02/2017 12.42 DOCTOR: Loyd Leyva Interpretating Date/Time 07/19/2017 14:01:16
[2017-07-19 14:39] VITALS: BP 110/59
== END 2017-07-19 14:41 | disposition home or self-care (01) ==
LOC: NEPC 08:26
DX: J44.9 Chronic obstructive pulmonary disease, unspecified (principal); E87.1 Hypo-osmolality and hyponatremia; E87.6 Hypokalemia; F31.9 Bipolar disorder, unspecified; F17.210 Nicotine dependence, cigarettes, uncomplicated; R06.02 Shortness of breath; Z85.820 Personal history of malignant melanoma of skin
CPT/HCPCS: 71046; 80053; 83605; 83735; 83880; 85025; 87040; 93005; 94664; 96374; 96375; 99285; J2930; J3480; J7030

== ENCOUNTER 2017-08-17 14:00 | Inpatient (IN) ==
[2017-08-17] MEDS ORDERED: Sod Chloride 0.9% Inj 1,000 ML IV.SIG ONE ×2 (14:35→16:18)
[2017-08-17] MEDS ORDERED: Morphine Inj 4 MG/ML Vial IV.PUSH STA (14:35)
--- NOTE | 2017-08-17 15:32 | ED ---
HPI General Chief complaint: Abdominal Pain Stated complaint: Cough/congestion/abd pain/n/v/d x 6 days Time Seen by Provider: 08/17/17 14:35 History of Present Illness HPI narrative: 41-year-old female with history of COPD, gastroparesis, pain, anorexia, bulimia here for evaluation of nausea vomiting and diarrhea for the last 6 days, vomiting is nonbloody and nonbilious, patient says that she feel more nauseated since this morning, mild abdominal pain mainly in the Epigastric region, no fever or chills or night sweats no recent travel or sick contacts, she does not recall eating anything out of the ordinary. Patient also reports some chest congestion and cough is nonproductive of any sputum. Related Data Home Medications Medication Instructions Recorded Confirmed gabapentin 300 mg PO TID 08/17/17 08/17/17 lurasidone [Latuda] 40 mg PO DAILY 08/17/17 08/17/17 trazodone 200 mg PO HS 08/17/17 08/17/17 Previous Rx's Medication Instructions Recorded ciprofloxacin HCl 250 mg PO Q12HR #5 tab 08/18/17 pantoprazole 40 mg PO BID #20 tab 08/18/17 Allergies Allergy/AdvReac Type Severity Reaction Status Date / Time lithium Allergy Severe Seizures Verified 08/17/17 14:10 *MDRO Multi-Drug Resistant AdvReac Unknown Cleared Uncoded 08/17/17 14:10 Organism 01/12/16 Review of Systems Except as stated in HPI: all other systems reviewed are negative [facility] Medical History Medical History Anorexia (Acute) COPD (chronic obstructive pulmonary disease) (Acute) GERD (gastroesophageal reflux disease) (Acute) Gastric ulcer (Acute) Pancreatitis (Acute) Pneumonia (Acute) Surgical History Surgical History No history of previous surgery (Acute) Family History Family History Other No significant family history Social History Social History Substance History: Active Abuse Second Hand Smoke Exposure: Yes Smoking Status: Current every day smoker Tobacco Type: Cigarettes How Often Do You Have a Drink Containing Alcohol: Monthly or less Recent Travel in [facility] within the Last 8 Weeks: No Recent Out of Country Travel within the Last 8 Weeks: No Exam Narrative Exam Narrative: GENERAL: Alert oriented 3 no acute distress. SKIN: Focused skin assessment warm/dry. HEAD: Atraumatic. Normocephalic. EYES: Pupils equal and round. No scleral icterus. No injection or drainage. ENT: No nasal bleeding or discharge. Mucous membranes pink and moist. NECK: Trachea midline. No JVD. CARDIOVASCULAR: Regular rate and rhythm. No murmur appreciated. RESPIRATORY: No accessory muscle use. Clear to auscultation. Breath sounds equal bilaterally. GASTROINTESTINAL: Abdomen soft, non-tender, nondistended. Hepatic and splenic margins not palpable. MUSCULOSKELETAL: No obvious deformities. No clubbing. No cyanosis. No edema. NEUROLOGICAL: Awake and alert. No obvious cranial nerve deficits. Motor grossly within normal limits. Normal speech. PSYCHIATRIC: Appropriate mood and affect; insight and judgment normal. Course Initial Documented Vital Signs Temperature 99.2 F 08/17/17 14:05 Pulse Rate 93 H 08/17/17 14:05 Respiratory Rate 16 08/17/17 14:05 Blood Pressure 109/73 08/17/17 14:05 Pulse Oximetry 96 08/17/17 14:05 Last Documented Vital Signs Temperature 97.6 F 08/18/17 15:07 Pulse Rate 62 08/18/17 15:07 Respiratory Rate 20 08/18/17 15:07 Blood Pressure 110/68 08/18/17 15:07 Pulse Oximetry 93 L 08/18/17 15:07 Medical Decision Making MDM Narrative Medical decision making narrative: 41-year-old female here for evaluation of nausea vomiting and diarrhea. Labs are remarkable for hypokalemia and hyponatremia. Patient will be admitted for further evaluation. Spoke with Dr. Stephens who accepted the patient. Lab Data Result diagrams: 08/18/17 14:40 08/18/17 06:14 Lab Results 08/17/17 08/17/17 08/17/17 Range/Units 15:25 15:25 16:30 CBC w Diff Auto diff final WBC 10.1 (4.0-11.0) th/mm3 RBC 4.40 (4.00-5.30) mil/mm3 Hgb 13.0 (11.6-15.3) gm/dL Hct 38.8 (35.0-46.0) % MCV 88.4 (80.0-100.0) fL MCH 29.7 (27.0-34.0) pg MCHC 33.6 (32.0-36.0) % RDW 15.1 (11.6-17.2) % Plt Count 260 (150-450) th/mm3 MPV 7.2 (7.0-11.0) fL Neut % (Auto) 76.9 H (16.0-70.0) % Lymph % (Auto) 15.1 (9.0-44.0) % Dickinson % (Auto) 6.2 (0.0-8.0) % Eos % (Auto) 1.4 (0.0-4.0) % Baso % (Auto) 0.4 (0.0-2.0) % Neut # (Auto) 7.9 H (1.8-7.7) th/mm3 Lymph # (Auto) 1.5 (1.0-4.8) th/mm3 Dickinson # (Auto) 0.6 (0.0-0.9) th/mm3 Eos # (Auto) 0.1 (0.0-0.4) th/mm3 Baso # (Auto) 0.0 (0.0-0.2) th/mm3 WBC Differential . Diff Scan Differential Comment . Sodium 120 L* (136-145) meq/L Potassium 2.0 L* (3.5-5.1) meq/L Chloride 61 L (98-107) meq/L Carbon Dioxide 49.6 H (21.0-32.0) meq/L Anion Gap 9 (5-15) meq/L BUN 11 (7-18) mg/dL Creatinine 1.30 H (0.50-1.00) mg/dL Estimated GFR 45 L (>89) mL/min Random Glucose 101 (74-106) mg/dL Calcium 8.8 (8.5-10.1) mg/dL Magnesium (1.5-2.5) mg/dL Total Bilirubin 0.7 (0.2-1.0) mg/dL AST 37 (15-37) U/L ALT 20 (10-53) U/L Alkaline Phosphatase 109 (45-117) U/L Troponin I 0.02 (0.02-0.05) ng/mL Total Protein 7.5 (6.4-8.2) g/dL Albumin 3.5 (3.4-5.0) g/dL Lipase 61 L (73-393) U/L Ur Collection Type Clean catch Urine Color Yellow (Yellw/Straw) Urine Clarity Clear (Clear) Urine pH 8.0 (5.0-8.5) Ur Specific [place] 1.010 (1.002-1.035) Urine Protein 30 H (Neg-Trace) mg/dL Urine Glucose (UA) Negative (Negative) mg/dL Urine Ketones Trace H (Negative) mg/dL Urine Occult Blood Small H (Negative) Urine Nitrate Negative (Negative) Urine Bilirubin Negative (Negative) Urine Urobilinogen 0.2 (Less than 2) mg/dL Ur Leukocyte Esterase Trace H (Negative) Urine RBC 4-15 H (0-3) /hpf Urine WBC 9-20 H (0-5) /hpf Ur Squamous Epith Cells Greater than 10 H (0-5) /hpf Urine Bacteria Occasional H (None) /hpf Micro UA Comment Culture indicated Urine Culture Comments Culture indicated 08/18/17 08/18/17 08/18/17 Range/Units 06:14 06:14 06:14 CBC w Diff Slide review pending WBC 6.5 (4.0-11.0) th/mm3 RBC 3.49 L (4.00-5.30) mil/mm3 Hgb 10.6 L D (11.6-15.3) gm/dL Hct 31.1 L (35.0-46.0) % MCV 89.0 (80.0-100.0) fL MCH 30.4 (27.0-34.0) pg MCHC 34.2 (32.0-36.0) % RDW 15.5 (11.6-17.2) % Plt Count 211 (150-450) th/mm3 MPV 7.6 (7.0-11.0) fL Neut % (Auto) 51.3 (16.0-70.0) % Lymph % (Auto) 33.4 (9.0-44.0) % Dickinson % (Auto) 7.6 (0.0-8.0) % Eos % (Auto) 6.4 H (0.0-4.0) % Baso % (Auto) 1.3 (0.0-2.0) % Neut # (Auto) 3.3 (1.8-7.7) th/mm3 Lymph # (Auto) 2.2 (1.0-4.8) th/mm3 Dickinson # (Auto) 0.5 (0.0-0.9) th/mm3 Eos # (Auto) 0.4 (0.0-0.4) th/mm3 Baso # (Auto) 0.1 (0.0-0.2) th/mm3 WBC Differential . Diff Scan Auto diff confirmed Differential Comment . Sodium 136 D (136-145) meq/L Potassium 3.1 L D (3.5-5.1) meq/L Chloride 94 L D (98-107) meq/L Carbon Dioxide 36.8 H D (21.0-32.0) meq/L Anion Gap 5 (5-15) meq/L BUN 7 (7-18) mg/dL Creatinine 0.93 (0.50-1.00) mg/dL Estimated GFR 66 L (>89) mL/min Random Glucose 87 (74-106) mg/dL Calcium 7.7 L D (8.5-10.1) mg/dL Magnesium 2.5 (1.5-2.5) mg/dL Total Bilirubin (0.2-1.0) mg/dL AST (15-37) U/L ALT (10-53) U/L Alkaline Phosphatase (45-117) U/L Troponin I (0.02-0.05) ng/mL Total Protein (6.4-8.2) g/dL Albumin (3.4-5.0) g/dL Lipase (73-393) U/L Ur Collection Type Urine Color (Yellw/Straw) Urine Clarity (Clear) Urine pH (5.0-8.5) Ur Specific [place] (1.002-1.035) Urine Protein (Neg-Trace) mg/dL Urine Glucose (UA) (Negative) mg/dL Urine Ketones (Negative) mg/dL Urine Occult Blood (Negative) Urine Nitrate (Negative) Urine Bilirubin (Negative) Urine Urobilinogen (Less than 2) mg/dL Ur Leukocyte Esterase (Negative) Urine RBC (0-3) /hpf Urine WBC (0-5) /hpf Ur Squamous Epith Cells (0-5) /hpf Urine Bacteria (None) /hpf Micro UA Comment Urine Culture Comments 08/18/17 Range/Units 14:40 CBC w Diff WBC (4.0-11.0) th/mm3 RBC (4.00-5.30) mil/mm3 Hgb 11.1 L (11.6-15.3) gm/dL Hct 34.1 L (35.0-46.0) % MCV (80.0-100.0) fL MCH (27.0-34.0) pg MCHC (32.0-36.0) % RDW (11.6-17.2) % Plt Count (150-450) th/mm3 MPV (7.0-11.0) fL Neut % (Auto) (16.0-70.0) % Lymph % (Auto) (9.0-44.0) % Dickinson % (Auto) (0.0-8.0) % Eos % (Auto) (0.0-4.0) % Baso % (Auto) (0.0-2.0) % Neut # (Auto) (1.8-7.7) th/mm3 Lymph # (Auto) (1.0-4.8) th/mm3 Dickinson # (Auto) (0.0-0.9) th/mm3 Eos # (Auto) (0.0-0.4) th/mm3 Baso # (Auto) (0.0-0.2) th/mm3 WBC Differential Diff Scan Differential Comment Sodium (136-145) meq/L Potassium (3.5-5.1) meq/L Chloride (98-107) meq/L Carbon Dioxide (21.0-32.0) meq/L Anion Gap (5-15) meq/L BUN (7-18) mg/dL Creatinine (0.50-1.00) mg/dL Estimated GFR (>89) mL/min Random Glucose (74-106) mg/dL Calcium (8.5-10.1) mg/dL Magnesium (1.5-2.5) mg/dL Total Bilirubin (0.2-1.0) mg/dL AST (15-37) U/L ALT (10-53) U/L Alkaline Phosphatase (45-117) U/L Troponin I (0.02-0.05) ng/mL Total Protein (6.4-8.2) g/dL Albumin (3.4-5.0) g/dL Lipase (73-393) U/L Ur Collection Type Urine Color (Yellw/Straw) Urine Clarity (Clear) Urine pH (5.0-8.5) Ur Specific [place] (1.002-1.035) Urine Protein (Neg-Trace) mg/dL Urine Glucose (UA) (Negative) mg/dL Urine Ketones (Negative) mg/dL Urine Occult Blood (Negative) Urine Nitrate (Negative) Urine Bilirubin (Negative) Urine Urobilinogen (Less than 2) mg/dL Ur Leukocyte Esterase (Negative) Urine RBC (0-3) /hpf Urine WBC (0-5) /hpf Ur Squamous Epith Cells (0-5) /hpf Urine Bacteria (None) /hpf Micro UA Comment Urine Culture Comments Imaging Data Radiologist's impression: Head CT 08/17/17 00:00 CONCLUSION: Negative noncontrast head CT. Chest X-Ray 08/17/17 14:35 CONCLUSION: No acute cardiopulmonary disease. Abdomen/Pelvis CT 08/17/17 16:28 CONCLUSION: No evidence of acute abdominal or pelvic process. No masses are identified. Chest X-Ray 08/18/17 00:00 CONCLUSION: No acute cardiopulmonary disease. Discharge Plan Discharge Disposition Patient Disposition: 30 Still Patient Discharge Condition Condition: Stable Discharge Order Discharge Orders: Discharge Order (Routine); Ordered 08/18/17 Ordered By: Elly Stephens Discharge Details Anticipated Discharge Date: 08/18/17 Physicians Team ED Provider: Keyon Luu Primary Care Provider: Sari Thakkar Attending Provider: Elly Stephens Discharge Interventions Interventions: ED Discharge Assessment Last Done: 08/17/17 19:57 Vital Signs Last Done: 08/17/17 19:57 Status ED Status: Left Department Discharge Information Discharge Date/Time: 08/17/17 20:00
[2017-08-17 15:36] LABS: Baso % (Auto) 0.4 % (0.0-2.0); Eos # (Auto) 0.1 th/mm3 (0.0-0.4); Eos % (Auto) 1.4 % (0.0-4.0); Hematocrit 38.8 % (35.0-46.0); Lymph # (Auto) 1.5 th/mm3 (1.0-4.8); Lymph % (Auto) 15.1 % (9.0-44.0); Mean Corpuscular HGB Conc 33.6 % (32.0-36.0); Mean Corpuscular Hemoglobin 29.7 pg (27.0-34.0); Mean Corpuscular Volume 88.4 fL (80.0-100.0); Mean Platelet Volume 7.2 fL (7.0-11.0); Mono # (Auto) 0.6 th/mm3 (0.0-0.9); Mono % (Auto) 6.2 % (0.0-8.0); Neut # (Auto) 7.9 th/mm3 (1.8-7.7); Neut % (Auto) 76.9 % (16.0-70.0); Platelet Count 260 th/mm3 (150-450); Red Cell Distribution Width 15.1 % (11.6-17.2); White Blood Count 10.1 th/mm3 (4.0-11.0)
--- NOTE | 2017-08-17 15:55 | XR ---
EXAM DATE: 08/17/2017 3:24 PM EDT AGE/SEX: 41 years / Female INDICATIONS: Patient complains of cough and congestion. CLINICAL DATA: This is the patient's initial encounter. Patient reports that signs and symptoms have been present for 3 days and indicates a pain score of 0/10. MEDICAL/SURGICAL HISTORY: None. None. [place] [facility] [place]. . FINDINGS: The cardiac silhouette is normal in transverse diameter. The lungs are free of acute parenchymal opac ity. No effusions are identified. CONCLUSION: No acute cardiopulmonary disease. Electronically signed by: Yan Lawton MD 08/17/2017 3:54 PM EDT
[2017-08-17 16:05] LABS: Alanine Aminotransferase 20 U/L (10-53); Albumin 3.5 g/dL (3.4-5.0); Alkaline Phosphatase 109 U/L (45-117); Aspartate Aminotransferase 37 U/L (15-37); Blood Urea Nitrogen 11 mg/dL (7-18); Calcium 8.8 mg/dL (8.5-10.1); Chloride 61 meq/L (98-107); Glomerular Filtration Rate 45 mL/min (>89); Glucose,Random 101 mg/dL (74-106); Lipase 61 U/L (73-393); Total Protein 7.5 g/dL (6.4-8.2); Troponin I 0.02 ng/mL (0.02-0.05)
[2017-08-17 16:09] LABS: Sodium 120 meq/L (136-145)
[2017-08-17 16:50] LABS: Anion Gap 9 meq/L (5-15); Carbon Dioxide 49.6 meq/L (21.0-32.0)
--- NOTE | 2017-08-17 17:02 | CT ---
EXAM DATE: 08/17/2017 4:58 PM EDT AGE/SEX: 41 years / Female INDICATIONS: Upper abdominal pain with nausea. CLINICAL DATA: This is the patient's initial encounter. Patient reports that signs and symptoms have been present for 4 - 6 days and indicates a pain score of 8/10. MEDICAL/SURGICAL HISTORY: None. None. RADIATION DOSE: 4.99 CTDI (mGy) COMPARISON: No prior exams available for comparison. TECHNIQUE: Multiple contiguous axial images were obtained through the abdomen. Images were obtained using multiple row detector helical technique. Using automated exposure control and adjustment of the mA and/or kV according to patient size, radiation dose was kept as low as reasonably achievable to o btain optimal diagnostic quality images. DICOM format image data is available electronically for rev iew and comparison. FINDINGS: Examination of the lung bases demonstrates no abnormality. No pleural fluid is identified. No pulmona ry nodules are present. The liver and spleen are free of focal defects. The gallbladder and pancreas demonstrate no abnormality. The adrenal glands are normal. The kidneys demonstrate no evidence of justine id renal mass or hydronephrosis. No free fluid or abdominal masses are identified. No para-aortic kirill nopathy is seen. Examination of the pelvis demonstrates no evidence of free fluid or pelvic mass. No abnormally enlarg ed inguinal or retroperitoneal lymph nodes are present. The bladder is unremarkable. Intrauterine dev ice is in expected position CONCLUSION: No evidence of acute abdominal or pelvic process. No masses are identified. Electronically signed by: Yan Lawton MD 08/17/2017 5:01 PM EDT
[2017-08-17] MEDS: Potassium Chlor 20 mEq Premix 20 MEQ/100 ML PIGGYBACK IV.SIG SCH (17:11)
[2017-08-17] MEDS ORDERED: Pantoprazole Inj 40 MG Vial IV.PUSH ONE (17:12)
[2017-08-17] MEDS ORDERED: Aluminum/Magnesium/Simethacone Susp 30 ML UDC PO ONE (17:30)
[2017-08-17] MEDS ORDERED: Acetaminophen 325 MG Tablet PO PRN (17:31)
[2017-08-17 17:32] LABS: Bilirubin,Urine Negative (Negative); Clarity,Urine Clear (Clear); Color,Urine Yellow (Yellw/Straw); Glucose,Urine (UA) Negative (Negative); Leukocyte Esterase,Urine Trace (Negative); Nitrite,Urine Negative (Negative); Urobilinogen,Urine 0.2 mg/dL (Less than 2)
--- NOTE | 2017-08-17 17:42 | P.HP ---
History of Present Illness Primary Care Physician: Sari Thakkar MD History of Present Illness: This is a pleasant 41-year-old female patient with a known medical history of COPD, gastroparesis, anorexia nervosa, bulimia and alcoholism who presented to the ED with complaints of abdominal pain, nausea, vomiting and diarrhea 6 days. Patient states that over the past weeks she has been increasingly weak, actually fell roughly 2 days ago, hitting her head although did not lose consciousness. She does admit to fevers at home T-max of 100. Has not been able to eat for the past week with increasingly diminished appetite. She does admit to vomiting. Also admits to diarrhea with her last bowel movement yesterday with intermittent dark red blood in her stool. Patient states that her abdominal pain is in her midepigastric area, cramping in nature and worse when she eats or drinks. She attempted to take Pepto-Bismol and antacids at home which were ineffective to help her symptoms. She did undergo an EGD at [facility] in April, at that time was found to have an ulcer as well as a hiatal hernia that was stable and advised to just watch. Patient under went a colonoscopy less than one year ago which was reportedly negative as well. It should be noted that patient also admits to some chest congestion as well as nonproductive cough. Patient denies any sick contacts or recent travel. She does state that she was recently in treatment for her chronic anorexia and bulimia as well as her alcoholism. Patient states that this has been stable for quite some time and she has been "having a bit of a relapse lately". She does not follow with the GI specialist, she states she lost her insurance. - Diagnosis (1) Abdominal pain (2) Hyponatremia (3) Hypokalemia (4) Acute kidney injury (5) Anorexia nervosa with bulimia (6) Fall Inpatient Certification: I certify that the inpatient services were ordered in accordance with Medicare regulations governing the order. This includes certification that hospital inpatient services are reasonable and necessary and in the case of services not specified as inpatient-only under 42 CFR 419.22(n), that they are appropriately provided as inpatient services in accordance to with the 2-midnight benchmark under 43 CFR 412.3(e) Review of Systems All other systems reviewed negative except as stated in HPI PMFSH - History History Provided By: Patient - Medical History Medical History: Medical History (Last Updated 08/17/17 @ 16:49 by Dafne Sánchez) Anorexia COPD (chronic obstructive pulmonary disease) GERD (gastroesophageal reflux disease) Gastric ulcer Pancreatitis Pneumonia - Surgical History Surgical History: Surgical History (Last Updated 08/17/17 @ 16:49 by Dafne Sánchez) No history of previous surgery - Family History Family History: Family History (Last Updated 08/17/17 @ 17:27 by Christine Linton) Other No significant family history - Tobacco History Second Hand Smoke Exposure: Yes Tobacco Use In Past 30 Days: Yes Smoking Status: Current every day smoker Tobacco Type: Cigarettes - Alcohol History How Often Do You Have a Drink Containing Alcohol: Monthly or less - Substance Use History Substance History: Active Abuse - Substance Use Type Alcohol Status: Active Route Used: By Mouth Frequency: states hx of alcholism , states has been sober but started back last 2 wks Reason for Use: Feels Good - Travel History Recent Travel in the [place] Within the Last 8 Weeks: No Recent Travel Out of the Country Within the Last 8 Weeks: No - Immunization History Tetanus Immunization: <5 Years Hx Influenza Vaccine This Season: Yes Medications and Allergies Active Medications: Active Medications Potassium Chloride (Kcl 20 Meq Premix Inj) 20 meq in 100 mls @ 50 mls/hr IV.SIG Q2H JANAY Stop: 08/17/17 20:29 Last Admin: 08/17/17 17:11 Dose: 50 mls/hr Allergies Allergy/AdvReac Type Severity Reaction Status Date / Time lithium Allergy Severe Seizures Verified 08/17/17 14:10 *MDRO Multi-Drug Resistant AdvReac Unknown Cleared Uncoded 08/17/17 14:10 Organism 01/12/16 Home Medications Medication Instructions Recorded Confirmed Type gabapentin 300 mg PO TID 08/17/17 08/17/17 History lurasidone [Latuda] 40 mg PO DAILY 08/17/17 08/17/17 History trazodone 200 mg PO HS 08/17/17 08/17/17 History Exam Vital signs: Vital Signs 08/17/17 14:05 Temperature 99.2 F Pulse Rate 93 H Respiratory Rate 16 Blood Pressure 109/73 Pulse Oximetry 96 Intake & Output 08/16/17 08/17/17 08/17/17 18:59 06:59 18:59 Weight 37.2 kg Narrative: GENERAL: Well-developed, thin appearing female patient in NAD. SKIN: Warm and dry. No rash. HEAD: Normocephalic. Atraumatic. EYES: Pupils equal and round. No scleral icterus. No injection or drainage. ENT: No nasal bleeding or discharge. Mucous membranes pink and moist. NECK: Supple. Trachea midline. CARDIOVASCULAR: Regular rate and rhythm. S1, S2 noted. No murmur appreciated. RESPIRATORY: No accessory muscle use. Clear to auscultation. Breath sounds equal bilaterally. GASTROINTESTINAL: Abdomen soft, non-tender, nondistended. Normoactive bowel sounds x4. MUSCULOSKELETAL: No obvious deformities. Extremities without clubbing, cyanosis , or edema. NEUROLOGICAL: Awake and alert. No obvious cranial nerve deficits. Motor grossly within normal limits. 5/5 muscle strength in bilateral upper and lower extremities. Normal speech. PSYCHIATRIC: Appropriate mood and affect; insight and judgment normal. Results - Labs CBC & Chem 7: 08/17/17 15:25 08/17/17 15:25 Labs: Laboratory Results - last 24 hr 08/17/17 08/17/17 15:25 15:25 CBC w Diff Auto diff final WBC 10.1 RBC 4.40 Hgb 13.0 Hct 38.8 MCV 88.4 MCH 29.7 MCHC 33.6 RDW 15.1 Plt Count 260 MPV 7.2 Neut % (Auto) 76.9 H Lymph % (Auto) 15.1 [place] % (Auto) 6.2 Eos % (Auto) 1.4 Baso % (Auto) 0.4 Neut # (Auto) 7.9 H Lymph # (Auto) 1.5 [place] # (Auto) 0.6 Eos # (Auto) 0.1 Baso # (Auto) 0.0 WBC Differential . Differential Comment . Sodium 120 L* Potassium 2.0 L* Chloride 61 L Carbon Dioxide 49.6 H Anion Gap 9 BUN 11 Creatinine 1.30 H Estimated GFR 45 L Random Glucose 101 Calcium 8.8 Total Bilirubin 0.7 AST 37 ALT 20 Alkaline Phosphatase 109 Troponin I 0.02 Total Protein 7.5 Albumin 3.5 Lipase 61 L - Imaging Impressions Chest X-Ray 08/17/17 14:35 CONCLUSION: No acute cardiopulmonary disease. Abdomen/Pelvis CT 08/17/17 16:28 CONCLUSION: No evidence of acute abdominal or pelvic process. No masses are identified. Caprini VTE Risk Assessment Caprini VTE Risk Assessment: No/Low Risk (score <= 1) Caprini Risk Assessment Model: Point Value = 1 Point Value = 2 Point Value = 3 Point Value = 5 Age 41-60 Minor surgery BMI > 25 kg/m2 Swollen legs Varicose veins or History of unexplained or recurrent spontaneous Oral contraceptives or hormone replacement Sepsis (< 1 month) Serious lung disease, including pneumonia (< 1 month) Abnormal pulmonary function Acute myocardial infarction Congestive heart failure (< 1 month) History of inflammatory bowel disease Medical patient at bed rest Age 61-74 Arthroscopic surgery Major open surgery (> 45 min) Laparoscopic surgery (> 45 min) Malignancy Confined to bed (> 72 hours) Immobilizing plaster cast Central venous access Age >= 75 History of VTE Family history of VTE Factor V Leiden Prothrombin [id number] Lupus anticoagulant Anticardiolipin antibodies Elevated serum homocysteine Heparin-induced thrombocytopenia Other congenital or acquired thrombophilia Stroke (< 1 month) Elective arthroplasty Hip, pelvis, or leg fracture Acute spinal cord injury (< 1 month) Prophylaxis Regimen: Total Risk Factor Score Risk Level Prophylaxis Regimen 0-1 Low Early ambulation 2 Moderate Order ONE of the following: *Sequential Compression Device (SCD) *Heparin 5000 units SQ BID 3-4 Higher Order ONE of the following medications: *Heparin 5000 units SQ TID *Enoxaparin/Lovenox 40 mg SQ daily (WT < 150 kg, CrCl > 30 mL/min) *Enoxaparin/Lovenox 30 mg SQ daily (WT < 150 kg, CrCl > 10-29 mL/min) *Enoxaparin/Lovenox 30 mg SQ BID (WT < 150 kg, CrCl > 30 mL/min) AND/OR *Sequential Compression Device (SCD) 5 or more Highest Order ONE of the following medications: *Heparin 5000 units SQ TID (Preferred with Epidurals) *Enoxaparin/Lovenox 40 mg SQ daily (WT < 150 kg, CrCl > 30 mL/min) *Enoxaparin/Lovenox 30 mg SQ daily (WT < 150 kg, CrCl > 10-29 mL/min) *Enoxaparin/Lovenox 30 mg SQ BID (WT < 150 kg, CrCl > 30 mL/min) AND *Sequential Compression Device (SCD) Assessment and Plan - Assessment (1) Abdominal pain Code(s): R10.9 - Unspecified abdominal pain Status: Acute Plan: Patient presented with abdominal pain epigastric area, nausea and vomiting and diarrhea. Abdominal/pelvis CT pending. Will follow. Patient given Protonix and Zofran in ED. Will continue. Added Maalox. Check c diff. Follow. (2) Hyponatremia Code(s): E87.1 - Hypo-osmolality and hyponatremia Status: Acute Plan: Na 120. 1 L NS bolus in ED. Will order for maintenance fluid NS with 20 meq 84 ml/hr. Recheck labs in am. Cardiac tele, monitor for any arrhythmias. Will order EKG. (3) Hypokalemia Code(s): E87.6 - Hypokalemia Status: Acute Plan: K 2.0. IV replacement ordered, 40meq PO. Continue IVF with potassium supplementation. Monitor cardiac telemetry. Weakness at home. Will order PT eval. (4) Acute kidney injury Code(s): N17.9 - Acute kidney failure, unspecified Status: Acute Plan: Creatinine 1.3 on presentation. Suspect secondary to dehydration, vomiting and diarrhea. Will give IVF. Recheck BMP in am. Follow. UA ordered. Follow. (5) Anorexia nervosa with bulimia Code(s): F50.02 - Anorexia nervosa, binge eating/purging type Status: Acute Plan: Stable at this time. Support given. (6) Fall Code(s): W19.XXXA - Unspecified fall, initial encounter Status: Acute Plan: Reports of fall at home. She states she hit her head but did not lose consciousness. States she has been weak over the last week. Suspect secondary to abdominal pain, diarrhea and vomiting. Patient is cachectic and history of bulimia and anorexia. Will order for PT evaluation as well as a head CT to evaluate trauma. Will continue follow monitor mental status. DVT Prophylaxis: SCDs.
[2017-08-17 17:50] LABS: Bacteria,Urine Occasional /hpf; Squamous Epithelial Cell,Urine Greater than 10 /hpf (0-5)
--- NOTE | 2017-08-17 19:32 | CT ---
EXAM DATE: 08/17/2017 7:26 PM EDT AGE/SEX: 41 years / Female INDICATIONS: Dizziness, patient fell hitting posterior head two days ago. CLINICAL DATA: This is the patient's initial encounter. Patient reports that signs and symptoms have been present for 1 day and indicates a pain score of 0/10. MEDICAL/SURGICAL HISTORY: None. None. RADIATION DOSE: 46.73 CTDI (mGy) COMPARISON: [facility] [place] BRAIN W/O CONTRAST, 11/30/2016. . TECHNIQUE: CT of the head without contrast. Using automated exposure control and adjustment of the mA and/or kV according to patient size, radiation dose was kept as low as reasonably achievable to ob tain optimal diagnostic quality images. DICOM format image data is available electronically for revi ew and comparison. FINDINGS: Cerebrum: The ventricles are normal for age. No evidence of midline shift, mass lesion, hemorrhage or acute infarction. No extraaxial fluid collections are seen. Posterior Fossa: The cerebellum and brainstem are intact. The 4th ventricle is midline. The cerebe llopontine angle is unremarkable. Extracranial: The visualized portion of the orbits is intact. Skull: The calvaria is intact. No evidence of skull fracture. CONCLUSION: Negative noncontrast head CT. Electronically signed by: Charlie Johnson MD 08/17/2017 7:30 PM EDT
[2017-08-17] MEDS ORDERED: Temazepam 15 MG Capsule PO PRN (21:00)
[2017-08-17] MEDS ORDERED: Potassium Chlor 20 mEq Premix 20 MEQ/100 ML PIGGYBACK IV.SIG SCH (23:00)
[2017-08-18] MEDS: Potassium Chlor 20 mEq Premix 20 MEQ/100 ML PIGGYBACK IV.SIG SCH (04:41)
[2017-08-18 06:43] LABS: Baso # (Auto) 0.1 th/mm3 (0.0-0.2); Baso % (Auto) 1.3 % (0.0-2.0); Eos # (Auto) 0.4 th/mm3 (0.0-0.4); Eos % (Auto) 6.4 % (0.0-4.0); Hematocrit 31.1 % (35.0-46.0); Hemoglobin 10.6 gm/dL (11.6-15.3); Lymph # (Auto) 2.2 th/mm3 (1.0-4.8); Lymph % (Auto) 33.4 % (9.0-44.0); Mean Corpuscular HGB Conc 34.2 % (32.0-36.0); Mean Corpuscular Hemoglobin 30.4 pg (27.0-34.0); Mean Platelet Volume 7.6 fL (7.0-11.0); Mono # (Auto) 0.5 th/mm3 (0.0-0.9); Mono % (Auto) 7.6 % (0.0-8.0); Neut # (Auto) 3.3 th/mm3 (1.8-7.7); Neut % (Auto) 51.3 % (16.0-70.0); Platelet Count 211 th/mm3 (150-450); Red Blood Count 3.49 mil/mm3 (4.00-5.30); Red Cell Distribution Width 15.5 % (11.6-17.2); White Blood Count 6.5 th/mm3 (4.0-11.0)
[2017-08-18 06:50] LABS: Potassium 3.1 meq/L (3.5-5.1)
[2017-08-18 06:53] LABS: Calcium 7.7 mg/dL (8.5-10.1); Carbon Dioxide 36.8 meq/L (21.0-32.0)
[2017-08-18] MEDS ORDERED: Ciprofloxacin 250 MG Tablet PO SCH (09:00)
[2017-08-18] MEDS ORDERED: Morphine Inj 4 MG/ML Vial IV.PUSH ONE (12:30)
--- NOTE | 2017-08-18 12:48 | P.PNIM ---
Subjective Interval history: Patient seen in follow up for chest pain and dehydration with electrolye imbalance tolerating diet with some pain and requests morphine and protonix k 3.1 Physical Exam Vital signs: Vital Signs 08/17/17 14:05 08/17/17 19:57 08/17/17 20:00 Temperature 99.2 F 98.6 F Pulse Rate 93 H 71 Respiratory Rate 16 20 Blood Pressure 109/73 98/66 L Pulse Oximetry 96 08/17/17 23:51 08/18/17 00:00 08/18/17 02:34 Temperature 98.2 F 97.3 F L Pulse Rate 66 63 Respiratory Rate 16 20 16 Blood Pressure 98/60 L 107/68 Pulse Oximetry 96 96 08/18/17 04:10 08/18/17 07:37 08/18/17 11:21 Temperature 97.1 F L 97.9 F 97.5 F L Pulse Rate 67 64 54 L Respiratory Rate 16 20 20 Blood Pressure 104/64 95/53 L 119/72 Pulse Oximetry 96 92 L 93 L Intake & Output 08/17/17 08/18/17 08/18/17 18:59 06:59 18:59 Intake Total 1000 / 1000 Balance 1000 / 1000 Weight 37.2 kg 37.2 kg Intake: IV 100 / 100 KCl 20 mEq Premix Inj 20 meq In 100 / 100 100 ml @ 50 mls/hr IV.SIG Q2H JANAY Rx#:[id number] Oral 900 / 900 Other: # Voids 3 Narrative: GENERAL: NAD, but complains of epigastric pain with eating SKIN: Warm and dry. HEAD: Atraumatic. Normocephalic. EYES: Pupils equal and round. No scleral icterus. No injection or drainage. ENT: No nasal bleeding or discharge. Mucous membranes pink and moist. NECK: Trachea midline. No JVD. CARDIOVASCULAR: Regular rate and rhythm. RESPIRATORY: No accessory muscle use. Clear to auscultation. Breath sounds equal bilaterally. GASTROINTESTINAL: Abdomen soft, epigastric is minimally tender, nondistended. Hepatic and splenic margins not palpable. MUSCULOSKELETAL: Extremities without clubbing, cyanosis, or edema. No obvious deformities. NEUROLOGICAL: Awake and alert. No obvious cranial nerve deficits. Motor grossly within normal limits. Five out of 5 muscle strength in the arms and legs. Normal speech. PSYCHIATRIC: Appropriate mood and affect; insight and judgment normal. Results - Labs CBC & Chem 7: 08/18/17 06:14 08/18/17 06:14 Laboratory Results - last 24 hr 08/17/17 08/17/17 08/17/17 15:25 15:25 16:30 CBC w Diff Auto diff final WBC 10.1 RBC 4.40 Hgb 13.0 Hct 38.8 MCV 88.4 MCH 29.7 MCHC 33.6 RDW 15.1 Plt Count 260 MPV 7.2 Neut % (Auto) 76.9 H Lymph % (Auto) 15.1 [place] % (Auto) 6.2 Eos % (Auto) 1.4 Baso % (Auto) 0.4 Neut # (Auto) 7.9 H Lymph # (Auto) 1.5 [place] # (Auto) 0.6 Eos # (Auto) 0.1 Baso # (Auto) 0.0 WBC Differential . Diff Scan Differential Comment . Sodium 120 L* Potassium 2.0 L* Chloride 61 L Carbon Dioxide 49.6 H Anion Gap 9 BUN 11 Creatinine 1.30 H Estimated GFR 45 L Random Glucose 101 Calcium 8.8 Total Bilirubin 0.7 AST 37 ALT 20 Alkaline Phosphatase 109 Troponin I 0.02 Total Protein 7.5 Albumin 3.5 Lipase 61 L Ur Collection Type Clean catch Urine Color Yellow Urine Clarity Clear Urine pH 8.0 Ur Specific [place] 1.010 Urine Protein 30 H Urine Glucose (UA) Negative Urine Ketones Trace H Urine Occult Blood Small H Urine Nitrate Negative Urine Bilirubin Negative Urine Urobilinogen 0.2 Ur Leukocyte Esterase Trace H Urine RBC 4-15 H Urine WBC 9-20 H Ur Squamous Epith Cells Greater than 10 H Urine Bacteria Occasional H Micro UA Comment Culture indicated Urine Culture Comments Culture indicated 08/18/17 08/18/17 06:14 06:14 CBC w Diff Slide review pending WBC 6.5 RBC 3.49 L Hgb 10.6 L D Hct 31.1 L MCV 89.0 MCH 30.4 MCHC 34.2 RDW 15.5 Plt Count 211 MPV 7.6 Neut % (Auto) 51.3 Lymph % (Auto) 33.4 [place] % (Auto) 7.6 Eos % (Auto) 6.4 H Baso % (Auto) 1.3 Neut # (Auto) 3.3 Lymph # (Auto) 2.2 [place] # (Auto) 0.5 Eos # (Auto) 0.4 Baso # (Auto) 0.1 WBC Differential . Diff Scan Auto diff confirmed Differential Comment . Sodium 136 D Potassium 3.1 L D Chloride 94 L D Carbon Dioxide 36.8 H D Anion Gap 5 BUN 7 Creatinine 0.93 Estimated GFR 66 L Random Glucose 87 Calcium 7.7 L D Total Bilirubin AST ALT Alkaline Phosphatase Troponin I Total Protein Albumin Lipase Ur Collection Type Urine Color Urine Clarity Urine pH Ur Specific [place] Urine Protein Urine Glucose (UA) Urine Ketones Urine Occult Blood Urine Nitrate Urine Bilirubin Urine Urobilinogen Ur Leukocyte Esterase Urine RBC Urine WBC Ur Squamous Epith Cells Urine Bacteria Micro UA Comment Urine Culture Comments - Imaging Impressions Head CT 08/17/17 00:00 CONCLUSION: Negative noncontrast head CT. Chest X-Ray 08/17/17 14:35 CONCLUSION: No acute cardiopulmonary disease. Abdomen/Pelvis CT 08/17/17 16:28 CONCLUSION: No evidence of acute abdominal or pelvic process. No masses are identified. Assessment and Plan - Assessment (1) Abdominal pain Code(s): R10.9 - Unspecified abdominal pain Status: Acute Plan: Patient presented with abdominal pain epigastric area, nausea and vomiting and diarrhea. Abdominal/pelvis CT negative for acute intrabdominal findings. Will follow. continue protonix, maalox, morphine and Zofran in ED. Will continue. repeat cxray r/o rupture (2) Hyponatremia Code(s): E87.1 - Hypo-osmolality and hyponatremia Status: Acute Plan: resolved with ivf (3) Hypokalemia Code(s): E87.6 - Hypokalemia Status: Acute Plan: K 3.1. check mag and replaces as needed (4) Acute kidney injury Code(s): N17.9 - Acute kidney failure, unspecified Status: Acute Plan: resolved likely secondary to dehydration, prerenal aka (5) Anorexia nervosa with bulimia Code(s): F50.02 - Anorexia nervosa, binge eating/purging type Status: Acute Plan: Stable at this time. Support given. (6) Fall Code(s): W19.XXXA - Unspecified fall, initial encounter Status: Acute Plan: stable, likley dehydrated and hypotensive pt eval appreciated - Plan Discharge Planning: dc home pending cxr
[2017-08-18] MEDS ORDERED: Sod Chloride 0.9% Inj 1,000 ML IV.SIG ONE (12:49)
[2017-08-18] MEDS ORDERED: Aluminum/Magnesium/Simethacone Susp 30 ML UDC PO ONE (13:15)
--- NOTE | 2017-08-18 13:20 | ECG ---
Date Performed: 08/17/2017 Time Performed: 21:49:49 PTAGE: 41 years EKG: Sinus rhythm NONSPECIFIC T-WAVE ABNORMALITY BORDERLINE ECG Since the PREVIOUS TRACING , no significant change noted PREVIOUS TRACIN07/19/2017 09.05 DOCTOR: Scot Vazquez Interpretating Date/Time 08/18/2017 13:16:19
[2017-08-18] MEDS ORDERED: Gabapentin 300 MG Capsule PO SCH (13:30)
--- NOTE | 2017-08-18 13:38 | XR ---
EXAM DATE: 08/18/2017 1:24 PM EDT AGE/SEX: 41 years / Female INDICATIONS: Upper abdominal pain, congestion, nausea. CLINICAL DATA: This is the patient's subsequent encounter. Patient reports that signs and symptoms h ave been present for 2 days and indicates a pain score of 6/10. MEDICAL/SURGICAL HISTORY: None. None. COMPARISON: HPO, CHEST 1V SINGLE AP, 08/17/2017. . FINDINGS: The cardiac silhouette is normal in transverse diameter. The lungs are hyperinflated but clear. No ef fusions are identified. The background interstitium is prominent though this is likely chronic in [place]. CONCLUSION: No acute cardiopulmonary disease. Electronically signed by: Yan Lawton MD 08/18/2017 1:37 PM EDT
[2017-08-18 14:54] LABS: Hematocrit 34.1 % (35.0-46.0); Hemoglobin 11.1 gm/dL (11.6-15.3)
[2017-08-18] MEDS ORDERED: traZODone 100 MG Tablet PO SCH (21:00)
== END 2017-08-18 16:23 | disposition home or self-care (01) ==
LOC: PHED 14:00 → PHEDA 17:05 → PH3 20:12
PROVIDERS: ADMIT Hospitalist; ATTEND Hospitalist

== ENCOUNTER 2017-09-18 12:02 | Inpatient (IN) ==
--- NOTE | 2017-09-18 12:18 | ED ---
HPI General Chief complaint: Overdose Stated complaint: poss od Time Seen by Provider: 09/18/17 12:17 Source: patient Mode of arrival: ambulatory Limitations: no limitations History of Present Illness HPI narrative: 42-year-old female with long-standing history of alcoholism, depression, seizure disorder on lithium, presents emergency department today for for evaluation following an intentional Tylenol overdose. Around 10:00 today, the patient had 4 shots of liquor and ingested approximately 20 tablets of 500 mg Tylenol. She tells me this was to help her sleep. She currently feels nauseous. She denies any pain. She has no other symptoms to report. Related Data Home Medications Medication Instructions Recorded Confirmed gabapentin 300 mg PO TID 08/17/17 09/18/17 lurasidone [Latuda] 40 mg PO DAILY 08/17/17 09/18/17 trazodone 200 mg PO HS 08/17/17 09/18/17 Previous Rx's Medication Instructions Recorded pantoprazole 40 mg PO BID #20 tab 08/18/17 Allergies Allergy/AdvReac Type Severity Reaction Status Date / Time lithium Allergy Severe Seizures Verified 08/17/17 14:10 *MDRO Multi-Drug Resistant AdvReac Unknown Cleared Uncoded 08/17/17 14:10 Organism 01/12/16 Review of Systems ROS: all other systems reviewed are negative PMFSH History History Provided By: Patient Medical History Medical History Anorexia (Acute) COPD (chronic obstructive pulmonary disease) (Acute) GERD (gastroesophageal reflux disease) (Acute) Gastric ulcer (Acute) Pancreatitis (Acute) Pneumonia (Acute) Surgical History Surgical History No history of previous surgery (Acute) Family History Family History Other No significant family history Social History Social History Substance History: No History of Abuse Second Hand Smoke Exposure: Yes Smoking Status: Current every day smoker Tobacco Type: Cigarettes How Often Do You Have a Drink Containing Alcohol: 4 or more times a week Recent Travel in [facility] within the Last 8 Weeks: No Exam Narrative Exam Narrative: GENERAL: Thin female patient, lying in bed, appears without distress SKIN: Focused skin assessment warm/dry. HEAD: Atraumatic. Normocephalic. EYES: Pupils equal and round. No scleral icterus. No injection or drainage. ENT: No nasal bleeding or discharge. Mucous membranes pink and moist. NECK: Trachea midline. No JVD. CARDIOVASCULAR: Regular rate and rhythm. No murmur appreciated. RESPIRATORY: No accessory muscle use. Clear to auscultation. Breath sounds equal bilaterally. GASTROINTESTINAL: Abdomen soft, non-tender, nondistended. No guarding. No rebound tenderness. Hepatic and splenic margins not palpable. MUSCULOSKELETAL: No obvious deformities. No clubbing. No cyanosis. No edema. NEUROLOGICAL: Awake and alert. No obvious cranial nerve deficits. Motor grossly within normal limits. Normal speech. PSYCHIATRIC: Depressed mood and flat affect. Course Initial Documented Vital Signs Temperature 97.9 F 09/18/17 12:10 Pulse Rate 108 H 09/18/17 12:10 Respiratory Rate 10 L 09/18/17 12:10 Blood Pressure 81/51 L 09/18/17 12:10 Pulse Oximetry 98 09/18/17 12:10 Last Documented Vital Signs Temperature 97.9 F 09/18/17 12:10 Pulse Rate 69 09/18/17 16:00 Respiratory Rate 18 09/18/17 16:00 Blood Pressure 110/71 09/18/17 16:00 Pulse Oximetry 100 09/18/17 16:00 Medical Decision Making TD Attestation TD supervised visit: Yes Attestation: I, Dr. Olivares, have reviewed the advance practice practitioner's documentation and am in agreement, met with the patient face to face, made the diagnosis, and the medical decision making was done by me. *My assessment and Findings: Patient is an overdose of Tylenol. Her 4 hour level did not meet threshold for treatment. However the 6 hour level had increased and now does meet threshold for treatment and we are instituting Mucomyst therapy. She will be a medical admit with psychiatric consultation. MDM Narrative Medical decision making narrative: 42-year-old female presents emergency department following an intentional Tylenol overdose. Although patient states this was to rest and not kill herself, I believe this time she is unable to determine for herself and without treatment, patient will likely harm herself. She is placed under Leroy act. Initial Tylenol level at the 4 hour cresencio is 117 and treatment is not required however repeat 6 hour level is 144 and Acetadote is initiated per protocol. I discussed the patient my attending physician who is also assessed the patient. [facility]. Differential Diagnosis Differential Diagnosis: Overdose intentional versus accidental versus mood disorder versus personality disorder versus polysubstance abuse. Lab Data Lab results reviewed: Yes I reviewed the patient's lab results. Result diagrams: 09/18/17 13:01 09/18/17 13:01 Lab Results 09/18/17 09/18/17 09/18/17 Range/Units 12:38 13:01 13:01 WBC 7.3 (4.0-11.0) th/mm3 RBC 3.74 L (4.00-5.30) mil/mm3 Hgb 12.4 (11.6-15.3) gm/dL Hct 33.5 L (35.0-46.0) % MCV 89.6 (80.0-100.0) fL MCH 33.1 (27.0-34.0) pg MCHC 36.9 H (32.0-36.0) % RDW 15.6 (11.6-17.2) % Plt Count 410 (150-450) th/mm3 MPV 6.6 L (7.0-11.0) fL Prelim Diff (Auto) Slide review pending Neut % (Auto) 45.1 (16.0-70.0) % Lymph % (Auto) 38.0 (9.0-44.0) % Green % (Auto) 12.5 H (0.0-8.0) % Eos % (Auto) 2.5 (0.0-4.0) % Baso % (Auto) 1.9 (0.0-2.0) % Neut # (Auto) 3.3 (1.8-7.7) th/mm3 Lymph # (Auto) 2.8 (1.0-4.8) th/mm3 Green # (Auto) 0.9 (0.0-0.9) th/mm3 Eos # (Auto) 0.2 (0.0-0.4) th/mm3 Baso # (Auto) 0.1 (0.0-0.2) th/mm3 WBC Differential . Diff Scan Auto diff confirmed Differential Comment . Sodium 131 L (136-145) meq/L Potassium 3.3 L (3.5-5.1) meq/L Chloride 94 L (98-107) meq/L Carbon Dioxide 28.5 (21.0-32.0) meq/L Anion Gap 9 (5-15) meq/L BUN 4 L (7-18) mg/dL Creatinine 1.12 H (0.50-1.00) mg/dL Estimated GFR 53 L (>89) mL/min POC Glucose 101 (68-110) mg/dl Random Glucose 80 (74-106) mg/dL Calcium 8.5 (8.5-10.1) mg/dL Total Bilirubin Less than 0.1 L (0.2-1.0) mg/dL AST 20 (15-37) U/L ALT 15 (10-53) U/L Alkaline Phosphatase 94 (45-117) U/L Total Protein 7.2 (6.4-8.2) g/dL Albumin 3.2 L (3.4-5.0) g/dL Urine Color (Yellw/Straw) Urine Clarity (Clear) Urine pH (5.0-8.5) Ur Specific [place] (1.002-1.035) Urine Protein (Neg-Trace) mg/dL Urine Glucose (UA) (Negative) mg/dL Urine Ketones (Negative) mg/dL Urine Occult Blood (Negative) Urine Nitrate (Negative) Urine Bilirubin (Negative) Urine Urobilinogen (Less than 2) mg/dL Ur Leukocyte Esterase (Negative) Urine RBC (0-3) /hpf Urine WBC (0-5) /hpf Ur Squamous Epith Cells (0-5) /hpf Urine Bacteria (None) /hpf Hyaline Casts (0-3) /lpf Urine Mucus (Occasional) /lpf Micro UA Comment Urine Culture Comments Salicylates (2.8-20.0) mg/dL Urine Opiates Screen (Neg) Acetaminophen 117.2 H (10.0-30.0) mcg/mL Ur Barbiturates Screen (Neg) Ur Amphetamines Screen (Neg) U Benzodiazepines Scrn (Neg) [place] (0.5-1.5) meq/L Urine Cocaine Screen (Neg) U Cannabinoids Screen (Neg) Serum Alcohol 165 H (0-5) mg/dL 0809/18/17 09/18/17 Range/Units 13:01 13:01 13:01 WBC (4.0-11.0) th/mm3 RBC (4.00-5.30) mil/mm3 Hgb (11.6-15.3) gm/dL Hct (35.0-46.0) % MCV (80.0-100.0) fL MCH (27.0-34.0) pg MCHC (32.0-36.0) % RDW (11.6-17.2) % Plt Count (150-450) th/mm3 MPV (7.0-11.0) fL Prelim Diff (Auto) Neut % (Auto) (16.0-70.0) % Lymph % (Auto) (9.0-44.0) % Green % (Auto) (0.0-8.0) % Eos % (Auto) (0.0-4.0) % Baso % (Auto) (0.0-2.0) % Neut # (Auto) (1.8-7.7) th/mm3 Lymph # (Auto) (1.0-4.8) th/mm3 [place] # (Auto) (0.0-0.9) th/mm3 Eos # (Auto) (0.0-0.4) th/mm3 Baso # (Auto) (0.0-0.2) th/mm3 WBC Differential Diff Scan Differential Comment Sodium (136-145) meq/L Potassium (3.5-5.1) meq/L Chloride (98-107) meq/L Carbon Dioxide (21.0-32.0) meq/L Anion Gap (5-15) meq/L BUN (7-18) mg/dL Creatinine (0.50-1.00) mg/dL Estimated GFR (>89) mL/min POC Glucose (68-110) mg/dl Random Glucose (74-106) mg/dL Calcium (8.5-10.1) mg/dL Total Bilirubin (0.2-1.0) mg/dL AST (15-37) U/L ALT (10-53) U/L Alkaline Phosphatase (45-117) U/L Total Protein (6.4-8.2) g/dL Albumin (3.4-5.0) g/dL Urine Color Yellow (Yellw/Straw) Urine Clarity Hazy H (Clear) Urine pH 7.0 (5.0-8.5) Ur Specific [place] 1.005 (1.002-1.035) Urine Protein Negative (Neg-Trace) mg/dL Urine Glucose (UA) Negative (Negative) mg/dL Urine Ketones Negative (Negative) mg/dL Urine Occult Blood Negative (Negative) Urine Nitrate Negative (Negative) Urine Bilirubin Negative (Negative) Urine Urobilinogen Less than 2 (Less than 2) mg/dL Ur Leukocyte Esterase Negative (Negative) Urine RBC 1 (0-3) /hpf Urine WBC 2 (0-5) /hpf Ur Squamous Epith Cells 10 (0-5) /hpf Urine Bacteria Rare H (None) /hpf Hyaline Casts 4 (0-3) /lpf Urine Mucus Few H (Occasional) /lpf Micro UA Comment Culture not ind Urine Culture Comments Culture not ind Salicylates Less than 1.7 L (2.8-20.0) mg/dL Urine Opiates Screen Neg (Neg) Acetaminophen (10.0-30.0) mcg/mL Ur Barbiturates Screen Neg (Neg) Ur Amphetamines Screen Neg (Neg) U Benzodiazepines Scrn Pos H (Neg) [place] (0.5-1.5) meq/L Urine Cocaine Screen Neg (Neg) U Cannabinoids Screen Neg (Neg) Serum Alcohol (0-5) mg/dL 09/18/17 09/18/17 Range/Units 13:37 16:01 WBC (4.0-11.0) th/mm3 RBC (4.00-5.30) mil/mm3 Hgb (11.6-15.3) gm/dL Hct (35.0-46.0) % MCV (80.0-100.0) fL MCH (27.0-34.0) pg MCHC (32.0-36.0) % RDW (11.6-17.2) % Plt Count (150-450) th/mm3 MPV (7.0-11.0) fL Prelim Diff (Auto) Neut % (Auto) (16.0-70.0) % Lymph % (Auto) (9.0-44.0) % Green % (Auto) (0.0-8.0) % Eos % (Auto) (0.0-4.0) % Baso % (Auto) (0.0-2.0) % Neut # (Auto) (1.8-7.7) th/mm3 Lymph # (Auto) (1.0-4.8) th/mm3 [place] # (Auto) (0.0-0.9) th/mm3 Eos # (Auto) (0.0-0.4) th/mm3 Baso # (Auto) (0.0-0.2) th/mm3 WBC Differential Diff Scan Differential Comment Sodium (136-145) meq/L Potassium (3.5-5.1) meq/L Chloride (98-107) meq/L Carbon Dioxide (21.0-32.0) meq/L Anion Gap (5-15) meq/L BUN (7-18) mg/dL Creatinine (0.50-1.00) mg/dL Estimated GFR (>89) mL/min POC Glucose (68-110) mg/dl Random Glucose (74-106) mg/dL Calcium (8.5-10.1) mg/dL Total Bilirubin (0.2-1.0) mg/dL AST (15-37) U/L ALT (10-53) U/L Alkaline Phosphatase (45-117) U/L Total Protein (6.4-8.2) g/dL Albumin (3.4-5.0) g/dL Urine Color (Yellw/Straw) Urine Clarity (Clear) Urine pH (5.0-8.5) Ur Specific [place] (1.002-1.035) Urine Protein (Neg-Trace) mg/dL Urine Glucose (UA) (Negative) mg/dL Urine Ketones (Negative) mg/dL Urine Occult Blood (Negative) Urine Nitrate (Negative) Urine Bilirubin (Negative) Urine Urobilinogen (Less than 2) mg/dL Ur Leukocyte Esterase (Negative) Urine RBC (0-3) /hpf Urine WBC (0-5) /hpf Ur Squamous Epith Cells (0-5) /hpf Urine Bacteria (None) /hpf Hyaline Casts (0-3) /lpf Urine Mucus (Occasional) /lpf Micro UA Comment Urine Culture Comments Salicylates (2.8-20.0) mg/dL Urine Opiates Screen (Neg) Acetaminophen 144.0 H (10.0-30.0) mcg/mL Ur Barbiturates Screen (Neg) Ur Amphetamines Screen (Neg) U Benzodiazepines Scrn (Neg) [place] Less than 0.1 L (0.5-1.5) meq/L Urine Cocaine Screen (Neg) U Cannabinoids Screen (Neg) Serum Alcohol (0-5) mg/dL Discharge Plan Discharge Disposition Patient Disposition: 30 Still Patient Discharge Condition Condition: Stable Discharge Details Diagnosis: Overdose on Tylenol Physicians Team ED Provider: [facility] Olivares ED Midlevel Provider: Emily Guardado Primary Care Provider: Sari Thakkar Rxs /Orders / Referrals /Forms Prescriptions: No Action trazodone 100 mg Tablet 200 mg PO HS RF: 0 gabapentin 300 mg Capsule 300 mg PO TID RF: 0 lurasidone [Latuda] 40 mg Tablet 40 mg PO DAILY RF: 0 pantoprazole 40 mg Tablet,Delayed Release (Dr/Ec) 40 mg PO BID Qty: 20 RF: 0 Discharge Interventions Interventions: Vital Signs Last Done: 09/18/17 16:00 Status ED Status: With Doctor
[2017-09-18] MEDS ORDERED: Sod Chloride 0.9% Inj 1,000 ML IV.SIG ONE (12:21)
[2017-09-18 13:31] LABS: Baso # (Auto) 0.1 th/mm3 (0.0-0.2); Baso % (Auto) 1.9 % (0.0-2.0); Eos # (Auto) 0.2 th/mm3 (0.0-0.4); Eos % (Auto) 2.5 % (0.0-4.0); Hematocrit 33.5 % (35.0-46.0); Hemoglobin 12.4 gm/dL (11.6-15.3); Lymph # (Auto) 2.8 th/mm3 (1.0-4.8); Mean Corpuscular Hemoglobin 33.1 pg (27.0-34.0); Mean Corpuscular Volume 89.6 fL (80.0-100.0); Mean Platelet Volume 6.6 fL (7.0-11.0); Mono # (Auto) 0.9 th/mm3 (0.0-0.9); Mono % (Auto) 12.5 % (0.0-8.0); Neut # (Auto) 3.3 th/mm3 (1.8-7.7); Neut % (Auto) 45.1 % (16.0-70.0); Platelet Count 410 th/mm3 (150-450); Red Blood Count 3.74 mil/mm3 (4.00-5.30); Red Cell Distribution Width 15.6 % (11.6-17.2); White Blood Count 7.3 th/mm3 (4.0-11.0)
[2017-09-18 13:35] LABS: Mean Corpuscular HGB Conc 36.9 % (32.0-36.0)
[2017-09-18 13:48] LABS: Amphetamine Screen,Urine Neg (Neg); Barbiturate Screen,Urine Neg (Neg); Cannabinoid Screen,Urine Neg (Neg); Cocaine Screen,Urine Neg (Neg)
[2017-09-18 13:49] LABS: Opiate Screen,Urine Neg (Neg)
[2017-09-18 13:55] LABS: Alkaline Phosphatase 94 U/L (45-117); Total Protein 7.2 g/dL (6.4-8.2)
[2017-09-18 14:04] LABS: Bacteria,Urine Rare /hpf; Bilirubin,Urine Negative (Negative); Clarity,Urine Hazy (Clear); Color,Urine Yellow (Yellw/Straw); Glucose,Urine (UA) Negative (Negative); Hyaline Casts,Urine 4 /lpf (0-3); Leukocyte Esterase,Urine Negative (Negative); Mucus,Urine Few /lpf (Occasional); Nitrite,Urine Negative (Negative); Specific Gravity,Urine 1.005 (1.002-1.035); Squamous Epithelial Cell,Urine 10 /hpf (0-5)
[2017-09-18 14:06] LABS: Acetaminophen 117.2 mcg/mL (10.0-30.0); Alanine Aminotransferase 15 U/L (10-53); Albumin 3.2 g/dL (3.4-5.0); Anion Gap 9 meq/L (5-15); Aspartate Aminotransferase 20 U/L (15-37); Blood Urea Nitrogen 4 mg/dL (7-18); Calcium 8.5 mg/dL (8.5-10.1); Carbon Dioxide 28.5 meq/L (21.0-32.0); Chloride 94 meq/L (98-107); Glomerular Filtration Rate 53 mL/min (>89); Glucose,Random 80 mg/dL (74-106); Potassium 3.3 meq/L (3.5-5.1); Sodium 131 meq/L (136-145)
[2017-09-18 14:07] LABS: Alcohol 165 mg/dL (0-5)
[2017-09-18] MEDS ORDERED: ACETYLCYSTEINE IV.SIG ONE ×6 (16:48→22:00)
[2017-09-18] MEDS ORDERED: DEXTROSE 5% IV.SIG ONE ×6 (16:48→22:00)
[2017-09-18] MEDS ORDERED: WATER IV.SIG ONE ×6 (16:48→22:00)
[2017-09-18] MEDS ORDERED: Haloperidol Inj 5 MG/ML Ampul IV.PUSH PRN (17:27)
--- NOTE | 2017-09-18 18:24 | P.HPIM ---
History of Present Illness Primary Care Physician: Sari Thakkar MD Chief Complaint: Overdose History of Present Illness: The patient is a 42-year-old female with a past medical history significant for alcohol abuse, depression and eating disorder who is presenting to the hospital following an overdose of Tylenol. The patient states that she has a history of depression. She has been drinking on a daily basis chronically. She states that she generally drinks 5-6 vodka minis daily. She said that she has been feeling rather depressed and this morning she took about 4 shots of vodka and decided that she did not want to feel this way anymore. She stated that she was not actively suicidal but she did want to make things go away by taking a lot of pills. She took about 20 Tylenol pills around 10 AM and called her fianc afterwards because she did want to get help. She states that she wants to quit drinking alcohol. She says she has been following [facility] for [facility]. She said that she wanted there for detox a couple of weeks ago. The patient is currently feeling nauseous and has a headache. She states that she has had sporadic fevers for the past couple of months, up to 102. She states she has chronic abdominal pain. She has not been eating well because she has an eating disorder. Discussed with nursing. Inpatient Certification: I certify that the inpatient services were ordered in accordance with Medicare regulations governing the order. This includes certification that hospital inpatient services are reasonable and necessary and in the case of services not specified as inpatient-only under 42 CFR 419.22(n), that they are appropriately provided as inpatient services in accordance to with the 2-midnight benchmark under 43 CFR 412.3(e) Estimated Total Length of Stay (Days): 3 Plans for Post Hospital Care: Not yet determined Review of Systems All other systems reviewed negative except as stated in HPI PMFSH - History History Provided By: Patient - Medical History Medical History: Medical History (Last Updated 09/18/17 @ 18:25 by Giovani Faust DO) Anxiety Bulimia Major depression Anorexia COPD (chronic obstructive pulmonary disease) GERD (gastroesophageal reflux disease) Gastric ulcer Pancreatitis Pneumonia - Surgical History Surgical History: Surgical History (Last Reviewed 09/18/17 @ 16:56 by TERESITA Sloan) No history of previous surgery - Family History Family History: Family History (Last Updated 09/18/17 @ 18:25 by Giovani Faust DO) Other Hypertension - Tobacco History Second Hand Smoke Exposure: Yes Tobacco Use In Past 30 Days: Yes (The patient smokes one pack a day) Smoking Status: Current every day smoker Tobacco Type: Cigarettes - Alcohol History How Often Do You Have a Drink Containing Alcohol: 4 or more times a week (The patient drinks 5-6 mini bottles of vodka daily) - Substance Use History Substance History: No History of Abuse - Travel History Recent Travel in the [facility] Within the Last 8 Weeks: No - Immunization History Tetanus Immunization: Unsure Hx Influenza Vaccine This Season: Unable to Assess Medications and Allergies Active Medications: Active Medications Flumazenil (Romazecon Inj) 0.2 mg IV.PUSH Q1M PRN PRN Reason: OVERSEDATION Haloperidol Lactate (Haldol Inj) 1 mg IV.PUSH Q15M PRN PRN Reason: for severe agitation Acetylcysteine 3,850 mg/ (Dextrose) 1,019.25 mls @ 63.703 mls/hr IV.SIG ONCE ONE Stop: 09/19/17 13:59 Acetylcysteine 1,950 mg/ (Dextrose) 509.75 mls @ 127.438 mls/hr IV.SIG ONCE ONE Stop: 09/18/17 21:59 Lorazepam (Ativan) 1 mg PO Q4H PRN PRN Reason: for CIWA 8-10 Lorazepam (Ativan) 2 mg PO Q2H PRN PRN Reason: for CIWA 11-14 Lorazepam (Ativan Inj) 2 mg IV.PUSH Q1H PRN PRN Reason: for CIWA 15-20 Lorazepam (Ativan Inj) 2 mg IV.PUSH Q15M PRN PRN Reason: for CIWA > 20 Nicotine (Habitrol 21 Mg Patch.24 Hr) 1 patch T-DERMAL DAILY JANAY Ondansetron HCl (Zofran Inj) 4 mg IV.PUSH Q6H PRN PRN Reason: NAUSEA OR VOMITING Pantoprazole Sodium (Protonix) 40 mg PO BID JANAY Allergies Allergy/AdvReac Type Severity Reaction Status Date / Time lithium Allergy Severe Seizures Verified 08/17/17 14:10 *MDRO Multi-Drug Resistant AdvReac Unknown Cleared Uncoded 08/17/17 14:10 Organism 01/12/16 Home Medications Medication Instructions Recorded Confirmed Type gabapentin 300 mg PO TID 08/17/17 09/18/17 History lurasidone [Latuda] 40 mg PO DAILY 08/17/17 09/18/17 History trazodone 200 mg PO HS 08/17/17 09/18/17 History Exam Vital signs: Vital Signs 09/18/17 12:10 09/18/17 12:31 09/18/17 13:13 Temperature 97.9 F Pulse Rate 108 H 81 Respiratory Rate 10 L 18 Blood Pressure 81/51 L 98/58 L Pulse Oximetry 98 98 98 09/18/17 14:00 09/18/17 15:00 09/18/17 16:00 Temperature Pulse Rate 66 64 69 Respiratory Rate 18 18 18 Blood Pressure 97/65 L 110/71 Pulse Oximetry 99 100 100 09/18/17 18:00 Temperature Pulse Rate 68 Respiratory Rate 18 Blood Pressure 120/83 Pulse Oximetry 99 Intake & Output 09/17/17 09/18/17 09/18/17 18:59 06:59 18:59 Intake Total 1000 / 1000 Balance 1000 / 1000 Weight 38.555 kg Intake: IV 1000 / 1000 Narrative: GENERAL: Thin female patient, lying in bed, appears much older than stated age. SKIN: Focused skin assessment warm/dry. HEAD: Atraumatic. Normocephalic. EYES: Pupils equal and round. No scleral icterus. No injection or drainage. ENT: No nasal bleeding or discharge. Mucous membranes pink and moist. NECK: Trachea midline. No JVD. CARDIOVASCULAR: Regular rate and rhythm. No murmur appreciated. RESPIRATORY: No accessory muscle use. Clear to auscultation. Breath sounds equal bilaterally. GASTROINTESTINAL: Abdomen soft, non-tender, nondistended. No guarding. No rebound tenderness. Hepatic and splenic margins not palpable. MUSCULOSKELETAL: No obvious deformities. No clubbing. No cyanosis. No edema. NEUROLOGICAL: Awake and alert. No obvious cranial nerve deficits. Motor grossly within normal limits. Normal speech. PSYCHIATRIC: Depressed mood and flat affect. Results - Labs CBC & Chem 7: 09/18/17 13:01 09/18/17 13:01 Labs: Short CBC 09/18/17 Range/Units 13:01 WBC 7.3 (4.0-11.0) th/mm3 Hgb 12.4 (11.6-15.3) gm/dL Hct 33.5 L (35.0-46.0) % Plt Count 410 (150-450) th/mm3 BMP 09/18/17 13:01 Sodium 131 L Potassium 3.3 L Chloride 94 L Carbon Dioxide 28.5 BUN 4 L Creatinine 1.12 H Calcium 8.5 Liver Function 09/18/17 Range/Units 13:01 Total Bilirubin Less than 0.1 L (0.2-1.0) mg/dL AST 20 (15-37) U/L ALT 15 (10-53) U/L Alkaline Phosphatase 94 (45-117) U/L Albumin 3.2 L (3.4-5.0) g/dL Urine 09/18/17 Range/Units 13:01 Urine Color Yellow (Yellw/Straw) Urine Clarity Hazy H (Clear) Urine pH 7.0 (5.0-8.5) Ur Specific [place] 1.005 (1.002-1.035) Urine Protein Negative (Neg-Trace) mg/dL Urine Glucose (UA) Negative (Negative) mg/dL Caprini VTE Risk Assessment Caprini VTE Risk Assessment: Moderate/High Risk (score >= 2) Caprini Risk Assessment Model: Point Value = 1 Point Value = 2 Point Value = 3 Point Value = 5 Age 41-60 Minor surgery BMI > 25 kg/m2 Swollen legs Varicose veins or History of unexplained or recurrent spontaneous Oral contraceptives or hormone replacement Sepsis (< 1 month) Serious lung disease, including pneumonia (< 1 month) Abnormal pulmonary function Acute myocardial infarction Congestive heart failure (< 1 month) History of inflammatory bowel disease Medical patient at bed rest Age 61-74 Arthroscopic surgery Major open surgery (> 45 min) Laparoscopic surgery (> 45 min) Malignancy Confined to bed (> 72 hours) Immobilizing plaster cast Central venous access Age >= 75 History of VTE Family history of VTE Factor V Leiden Prothrombin [id number] Lupus anticoagulant Anticardiolipin antibodies Elevated serum homocysteine Heparin-induced thrombocytopenia Other congenital or acquired thrombophilia Stroke (< 1 month) Elective arthroplasty Hip, pelvis, or leg fracture Acute spinal cord injury (< 1 month) Prophylaxis Regimen: Total Risk Factor Score Risk Level Prophylaxis Regimen 0-1 Low Early ambulation 2 Moderate Order ONE of the following: *Sequential Compression Device (SCD) *Heparin 5000 units SQ BID 3-4 Higher Order ONE of the following medications: *Heparin 5000 units SQ TID *Enoxaparin/Lovenox 40 mg SQ daily (WT < 150 kg, CrCl > 30 mL/min) *Enoxaparin/Lovenox 30 mg SQ daily (WT < 150 kg, CrCl > 10-29 mL/min) *Enoxaparin/Lovenox 30 mg SQ BID (WT < 150 kg, CrCl > 30 mL/min) AND/OR *Sequential Compression Device (SCD) 5 or more Highest Order ONE of the following medications: *Heparin 5000 units SQ TID (Preferred with Epidurals) *Enoxaparin/Lovenox 40 mg SQ daily (WT < 150 kg, CrCl > 30 mL/min) *Enoxaparin/Lovenox 30 mg SQ daily (WT < 150 kg, CrCl > 10-29 mL/min) *Enoxaparin/Lovenox 30 mg SQ BID (WT < 150 kg, CrCl > 30 mL/min) AND *Sequential Compression Device (SCD) Assessment and Plan - Plan Acetaminophen overdose The patient took about 20 500 mg Tylenol tablets. Her acetaminophen level was rising in the emergency department. She was started on N-acetylcysteine drip. Poison control was contacted. The patient was Leroy acted. -Continue acetylcysteine drip per protocol. -Follow acetaminophen level and LFTs. -Check coags. -Check screen. -Psychiatry consult pending. -Sitter ordered. Alcohol abuse The patient drinks significant amounts of vodka daily. -Cessation instruction. -CIWA protocol. -Seizure precautions. Renal insufficiency/ Hypokalemia Likely secondary to overdose. -Continue D5 normal saline with potassium. -Follow BMP and avoid nephrotoxic agents. COPD/ Nicotine dependence The patient smokes 1 pack daily. -Cessation instruction. -Nicotine patch. -Oxygen and nebs as needed. Eating disorder The patient endorses anorexia and bulimia. -Psychiatry consult pending. Chronic abdominal pain The patient has a history of pancreatitis. She continues to drink excessively. -Check a lipase level. -Trend LFTs. -PPI. -Keep NPO for now with IVFs. PPx: SCDs
[2017-09-18 18:26] LABS: INR 1.1 Ratio; Prothrombin Time 11.4 sec (9.8-11.6)
[2017-09-19] MEDS: KCL 20 mEq/D5W/NaCl 0.9% Inj 1,000 ML IV.CONT SCH ×3 (00:22→12:19)
[2017-09-19 11:40] LABS: Baso # (Auto) 0.1 th/mm3 (0.0-0.2); Eos # (Auto) 0.2 th/mm3 (0.0-0.4); Eos % (Auto) 3.2 % (0.0-4.0); Hematocrit 32.9 % (35.0-46.0); Hemoglobin 11.4 gm/dL (11.6-15.3); Lymph % (Auto) 27.7 % (9.0-44.0); Mean Corpuscular HGB Conc 34.5 % (32.0-36.0); Mean Corpuscular Hemoglobin 30.9 pg (27.0-34.0); Mean Corpuscular Volume 89.7 fL (80.0-100.0); Mean Platelet Volume 6.9 fL (7.0-11.0); Mono # (Auto) 0.6 th/mm3 (0.0-0.9); Mono % (Auto) 7.9 % (0.0-8.0); Neut # (Auto) 4.4 th/mm3 (1.8-7.7); Neut % (Auto) 60.2 % (16.0-70.0); Platelet Count 455 th/mm3 (150-450); Red Blood Count 3.67 mil/mm3 (4.00-5.30); Red Cell Distribution Width 15.3 % (11.6-17.2); White Blood Count 7.4 th/mm3 (4.0-11.0)
[2017-09-19 12:09] LABS: Alanine Aminotransferase 16 U/L (10-53); Albumin 2.6 g/dL (3.4-5.0); Anion Gap 9 meq/L (5-15); Aspartate Aminotransferase 15 U/L (15-37); Blood Urea Nitrogen 4 mg/dL (7-18); Calcium 8.1 mg/dL (8.5-10.1); Carbon Dioxide 25.3 meq/L (21.0-32.0); Chloride 100 meq/L (98-107); Glomerular Filtration Rate 74 mL/min (>89); Glucose,Random 111 mg/dL (74-106); Lipase 51 U/L (73-393); Potassium 3.9 meq/L (3.5-5.1); Sodium 134 meq/L (136-145)
[2017-09-19 12:11] LABS: Alkaline Phosphatase 72 U/L (45-117); Total Protein 5.6 g/dL (6.4-8.2)
--- NOTE | 2017-09-19 12:25 | P.CONPSY ---
Provisional Diagnosis Admission Date: September 18, 2017 17:21 [place] I.: Bipolar disorder, current episode depressive vs alcohol induced mood disorder, history of depression and anxiety, alcohol use disorder [place] II.: Unspecified personality disorder, cluster B traits, r/o borderline personality disorder [place] III.: COPD [place] IV.: Unemployed, poor family and social support [place] V.: 38 History of Present Illness Service: Medicine Primary Care Provider: Sari Thakkar MD Family Provider: No Primary Care Physician Chief Complaint: Overdose History of Present Illness: The patient is a 42-year-old woman, domiciled with her fianc in [facility], mother of a 14 years old daughter which is in the custody of her parents, unemployed, with a psychiatric history of bipolar disorder, alcohol use disorder, eating disorder, borderline personality disorder, anxiety, previous psychiatric hospitalizations, last hospitalization here at [facility] in 2017 under the care of Dr. Navas, documentation reviewed, suicide attempts, history of self cutting behavior without SI, established outpatient care in [facility] , she is on trazodone 100 mg, Prozac 20 mg, Latuda 20 mg, prescribed by nurse practitioners, medical history of COPD, who is presenting to the hospital following an overdose of Tylenol with suicidal intention. initially in ER patient states that she has a history of depression. She has been drinking on a daily basis chronically. She states that she generally drinks 5-6 vodka minis daily. She said that she has been feeling rather depressed and this morning she took about 4 shots of vodka and decided that she did not want to feel this way anymore. She stated that she was not actively suicidal but she did want to make things go away by taking a lot of pills. She took about 20 Tylenol pills around 10 AM and called her fianc afterwards because she did want to get help. She states that she wants to quit drinking alcohol. She says she has been following with [facility] for psychiatric medications. EMR was reviewed. The patient was seen for psychiatric evaluation in the medical floor. On the evaluation the patient was calm, cooperative and pleasant. The patient reports that she overdosed with Tylenol while she was intoxicated with alcohol, no necessary to commit suicide, but to "disappear for some minutes and forget my problem". The patient reports that she has been diagnosed with bipolar disorder, she has been taking her medications prescribed by [facility], but at the same time she has been persistently taking alcohol every day. She has just completed a detox/rehab about 3 weeks ago in [facility], but she immediately relapsed in alcohol. She takes anywhere from 5-6 drinks per day. She reports that she has history of alcohol withdrawal and DTs. She reports that the reason she is drinking is to fight her depression and anxiety, she reports that in the last year she has been feeling increasingly hopeless, helpless, worthless in the context of lack of capacity to work, separation from her daughter. At this moment the patient denies suicidal enemas ideation, she denies visual and auditory hallucinations, she is logical, coherent and relevant , which she expressed understanding of the need of a psychiatric admission for stabilization of her depression. The patient was able to contract for safety in the hospital. No loosening of associations, no ideas of reference, no paranoia, no agitation, no fluctuation of consciousness were elicited during this evaluation. The patient denies the use illegal drugs. PPHx: psychiatric history of bipolar disorder, alcohol use disorder, eating disorder, borderline personality disorder, anxiety, previous psychiatric hospitalizations, last hospitalization here at [facility] in 2017 under the care of Dr. Navas, documentation reviewed, suicide attempts, history of self cutting behavior without SI, established outpatient care in [facility], she is on trazodone 100 mg, Prozac 20 mg, Latuda 20 mg, PMHx: COPD, history of DTs sustance Hx: Patient denies the use of illegal drug She takes 5-6 drinks per day, she was recently discharged from [facility] detox/rehab Family Hx: Her mother had history of bipolar disorder social Hx: The patient was born and raised in [place], she lives in [facility] with her [facility], she has a 40 years old daughter, 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 Review of Systems Constitutional: Denies anorexia, Denies body ache(s), Denies chills, Denies daytime sleepiness, Denies excessive sweating, Denies fatigue, Denies fever(s), Denies headache(s), Denies increased appetite, Denies lack of energy, Denies malaise, Denies night sweats, Denies weakness, Denies weight gain, Denies weight loss, Denies other Eyes: Denies blind spots, Denies blurry vision, Denies bulging eyes, Denies change in vision, Denies double vision, Denies discharge, Denies dry eyes, Denies floaters, Denies irritation, Denies itchy eyes, Denies loss of vision, Denies pain, Denies requires corrective lenses, Denies sensitivity to light, Denies other Ears, Nose, Mouth, and Throat: Denies abnormal hearing, Denies bleeding gums, Denies bad breath, Denies change in voice, Denies dental pain, Denies difficulty swallowing, Denies dizziness, Denies dry mouth, Denies ear discharge , Denies ear pain, Denies facial pain, Denies headache(s), Denies hearing loss, Denies hoarseness, Denies lip swelling, Denies nosebleed, Denies mouth lesions, Denies mouth pain, Denies nasal congestion, Denies nasal discharge, Denies nasal obstruction, Denies nasal trauma, Denies neck lump, Denies neck pain, Denies nose pain, Denies pain with swallowing, Denies poor balance, Denies post nasal drip, Denies ringing in the ears, Denies sinus pain, Denies sinus pressure , Denies sore throat, Denies throat swelling, Denies tongue swelling, Denies other Respiratory: Denies change in phlegm color, Denies chest congestion, Denies cough, Denies coughing up blood, Denies excessive phlegm production, Denies pain on inspiration, Denies pain with cough, Denies shortness of breath, Denies shortness of breath with activity, Denies snoring, Denies stridor, Denies wheezing, Denies other Gastrointestinal: Denies abdominal pain, Denies belching, Denies black, tarry stools, Denies bloating, Denies bright, red blood in stools, Denies change in bowel habits, Denies constant urge to pass stool, Denies change in stools, Denies coffee ground vomit, Denies constipation, Denies cramping, Denies difficulty swallowing, Denies excessive passing of gas, Denies feeling full early, Denies heartburn, Denies incontinent of stools, Denies loose stools, Denies nausea, Denies pain with swallowing, Denies vomiting, Denies vomiting blood, Denies other Genitourinary: Denies abnormal periods, Denies abnormal vaginal bleeding, Denies absent period, Denies bleeding between periods, Denies blood in urine, Denies difficulty starting urination, Denies difficulty urinating, Denies dribbling after urination, Denies frequent nighttime urination, Denies genital itching, Denies genital lesions, Denies heavy periods, Denies hot flashes, Denies light periods, Denies nipple discharge, Denies painful intercourse, Denies painful periods, Denies painful urination, Denies pelvic pain, Denies prolapse symptoms, Denies sexual problems, Denies side pain, Denies urinary incontinence, Denies urinary urgency, Denies vaginal discharge, Denies vaginal dryness, Denies vaginal odor, Denies vaginal itching, Denies other Neurologic: Denies abnormal hearing, Denies abnormal movements, Denies abnormal speech, Denies abnormal walking, Denies behavioral changes, Denies burning sensations, Denies confusion, Denies dizziness, Denies fainting, Denies frequent falls, Denies headache(s), Denies lack of coordination, Denies localized weakness, Denies loss of vision, Denies memory loss, Denies numbness, Denies other visual disturbances, Denies radiating pain, Denies restless legs, Denies convulsions, Denies seizure-like activity, Denies sensory deficit, Denies tingling, Denies tingling/numbness/burning sensations, Denies tremor(s), Denies unsteadiness, Denies weakness, Denies other Psychiatric: Reports depression, Reports hopelessness, Reports thoughts of hurting/killing yourself, Denies abnormal sleep pattern, Denies anxiety, Denies behavioral changes, Denies change in appetite, Denies change in sex drive, Denies confusion, Denies difficulty concentrating, Denies hearing things others do not hear, Denies irritability, Denies lack of enjoyment, Denies memory loss, Denies mood swings, Denies panic attacks, Denies paranoia, Denies seeing things others do not see, Denies sensing things others do not sense, Denies tactile hallucinations, Denies thoughts of hurting/killing others, Denies other PMFSH - History History Provided By: Patient - Medical History Medical History: Medical History (Last Updated 09/18/17 @ 18:25 by Giovani Faust DO) Anxiety Bulimia Major depression Anorexia COPD (chronic obstructive pulmonary disease) GERD (gastroesophageal reflux disease) Gastric ulcer Pancreatitis Pneumonia - Surgical History Surgical History: Surgical History (Last Reviewed 09/18/17 @ 16:56 by TERESITA Sloan) No history of previous surgery - Family History Family History: Family History (Last Updated 09/18/17 @ 18:25 by Giovani Faust DO) Other Hypertension - Tobacco History Second Hand Smoke Exposure: Yes Tobacco Use In Past 30 Days: Yes Smoking Status: Current every day smoker Tobacco Type: Cigarettes - Alcohol History How Often Do You Have a Drink Containing Alcohol: 4 or more times a week - Substance Use History Substance History: Active Abuse - Substance Use Type Alcohol Status: Active Route Used: By Mouth Reason for Use: Calm Down, Feels Good, Socialization - Travel History Recent Travel in the [place] Within the Last 8 Weeks: No Recent Travel Out of the Country Within the Last 8 Weeks: No - Immunization History Tetanus Immunization: Unsure Hx Influenza Vaccine This Season: Yes Medications and Allergies Active Medications: Active Medications Flumazenil (Romazecon Inj) 0.2 mg IV.PUSH Q1M PRN PRN Reason: OVERSEDATION Haloperidol Lactate (Haldol Inj) 1 mg IV.PUSH Q15M PRN PRN Reason: for severe agitation Acetylcysteine 3,850 mg/ (Dextrose) 1,019.25 mls @ 63.703 mls/hr IV.SIG ONCE ONE Stop: 09/19/17 13:59 Last Admin: 09/19/17 00:22 Dose: 63.7 mls/hr Potassium Chloride/Dextrose/Sod Cl (D5w/Ns + Kcl 20 Meq Inj) 1,000 mls @ 125 mls/hr IV.CONT .Q8H JANAY Last Infusion: 09/19/17 08:21 Dose: 0 mls/hr Lorazepam (Ativan) 1 mg PO Q4H PRN PRN Reason: for CIWA 8-10 Lorazepam (Ativan) 2 mg PO Q2H PRN PRN Reason: for CIWA 11-14 Lorazepam (Ativan Inj) 2 mg IV.PUSH Q1H PRN PRN Reason: for CIWA 15-20 Last Admin: 09/19/17 04:09 Dose: 2 mg Lorazepam (Ativan Inj) 2 mg IV.PUSH Q15M PRN PRN Reason: for CIWA > 20 Lorazepam (Ativan Inj) 1 mg IV.PUSH Q4H PRN PRN Reason: for CIWA 8-10 if NPO Last Admin: 09/19/17 08:14 Dose: 1 mg Nicotine (Habitrol 21 Mg Patch.24 Hr) 1 patch T-DERMAL DAILY [facility] Last Admin: 09/19/17 08:15 Dose: 1 patch Ondansetron HCl (Zofran Inj) 4 mg IV.PUSH Q6H PRN PRN Reason: NAUSEA OR VOMITING Last Admin: 09/19/17 11:29 Dose: 4 mg Pantoprazole Sodium (Protonix) 40 mg PO BID [facility] Last Admin: 09/19/17 08:21 Dose: Not Given Allergies Allergy/AdvReac Type Severity Reaction Status Date / Time lithium Allergy Severe Seizures Verified 08/17/17 14:10 *MDRO Multi-Drug Resistant AdvReac Unknown Cleared Uncoded 08/17/17 14:10 Organism 01/12/16 Home Medications Medication Instructions Recorded Confirmed Type gabapentin 300 mg PO TID 08/17/17 09/18/17 History lurasidone [Latuda] 40 mg PO DAILY 08/17/17 09/18/17 History trazodone 200 mg PO HS 08/17/17 09/18/17 History Exam Vital signs: Vital Signs 09/18/17 12:10 09/18/17 12:31 09/18/17 13:13 Temperature 97.9 F Pulse Rate 108 H 81 Respiratory Rate 10 L 18 Blood Pressure 81/51 L 98/58 L Pulse Oximetry 98 98 98 09/18/17 14:00 09/18/17 15:00 09/18/17 16:00 Temperature Pulse Rate 66 64 69 Respiratory Rate 18 18 18 Blood Pressure 97/65 L 110/71 Pulse Oximetry 99 100 100 09/18/17 18:00 09/18/17 18:28 09/18/17 20:45 Temperature 97.5 F L Pulse Rate 68 66 Respiratory Rate 18 18 Blood Pressure 120/83 134/78 Pulse Oximetry 99 99 99 09/18/17 22:00 09/18/17 23:28 09/19/17 00:00 Temperature 97.6 F Pulse Rate 56 L 69 57 L Respiratory Rate 18 Blood Pressure 133/78 Pulse Oximetry 96 09/19/17 04:00 09/19/17 05:07 09/19/17 08:00 Temperature 97.8 F 97.8 F Pulse Rate 65 50 L 79 Respiratory Rate 16 17 Blood Pressure 128/82 125/70 Pulse Oximetry 96 97 09/19/17 08:21 Temperature Pulse Rate Respiratory Rate Blood Pressure Pulse Oximetry 97 Intake & Output 09/18/17 09/19/17 09/19/17 18:59 06:59 18:59 Intake Total 1000 / 1000 0 / 0 Balance 1000 / 1000 0 / 0 Weight 38.555 kg 40.6 kg Intake: IV 1000 / 1000 Oral 0 / 0 Other: # Voids 2 Weight On Admission 40.6 kg Narrative: No withdrawal symptoms present, no catatonia, no stiffness, no EPS, no psychomotor retardation or agitation Mental Status Examination Appearance: Appropriate Consciousness: Alert Orientation: x4 Motor Activity: Normal gait Speech: Unremarkable Language: Adequate Fund of Knowledge: Adequate Attention and Concentration: Adequate Mood: Sad Affect: Sad Thought Process & Associations: Intact Thought Content: Appropriate Hallucination Type: None Delusion Type: None Suicidal Ideation: Yes Suicidal Plan: No Suicidal Intention: No Homicidal Ideation: No Homicidal Plan: No Homicidal Intention: No Insight: Poor Judgment: Poor Assessment and Plan - Assessment (1) Bipolar depression Code(s): F31.30 - Bipolar disorder, current episode depressed, mild or moderate severity, unspecified Status: Acute - Plan Plan: Estimated LOS: [] days On my psychiatric evaluation today I find a patient that is calm, cooperative, pleasant, but she reports that in the last month she has been feeling increasingly depressed, with increased sense of hopelessness, helplessness, worthlessness, loneliness in the context of financial stressors, separation from her daughter, and persistent and increased alcohol use to the point that the patient has tried to commit suicide by overdosing with Tylenol yesterday. This is a patient with a psychiatric history of bipolar disorder, personality disorder, irritable psychiatric hospitalizations, previous suicidal attempts, extensive self cutting behavior without SI, poor impulse control, poor coping skills, who usually treats herself with alcohol and does not follow psychiatric recommendations very well, and for this reason at this moment she has an elevated risk of danger to self and she needs to be admitted in psychiatry for stabilization and safety. At this point is unclear if current presentation is secondary to a primary mood disorder decompensation or to her alcoholism, and other etiology of current presentation to have a my is a personality pathology, but more longitudinal observation is needed in order to complete the diagnosis. The patient would be transferred to psychiatry once medically stable. Continue CIWA protocol in the medical floor. I will restart trazodone 100 mg at bedtime to help with insomnia and depression. Collateral information is still pending. Brief supportive psychotherapy, motivation and psychoeducation provided. Justification for Continued Inpatient Stay: Patient needs psychiatric admission for stabilization and safety. continue 1:1 for safety in the medical floor
--- NOTE | 2017-09-19 14:55 | P.PNIM ---
Subjective Interval history: The patient said that she had mild chronic abdominal pain. She was tolerating a diet. She wanted to know if she could call her family. She talked with psychiatry earlier. Physical Exam Vital signs: Vital Signs 09/18/17 15:00 09/18/17 16:00 09/18/17 18:00 Temperature Pulse Rate 64 69 68 Respiratory Rate 18 18 18 Blood Pressure 110/71 120/83 Pulse Oximetry 100 100 99 09/18/17 18:28 09/18/17 20:45 09/18/17 22:00 Temperature 97.5 F L Pulse Rate 66 56 L Respiratory Rate 18 Blood Pressure 134/78 Pulse Oximetry 99 99 09/18/17 23:28 09/19/17 00:00 09/19/17 04:00 Temperature 97.6 F 97.8 F Pulse Rate 69 57 L 65 Respiratory Rate 18 16 Blood Pressure 133/78 128/82 Pulse Oximetry 96 96 09/19/17 05:07 09/19/17 08:00 09/19/17 08:21 Temperature 97.8 F Pulse Rate 50 L 79 Respiratory Rate 17 Blood Pressure 125/70 Pulse Oximetry 97 97 09/19/17 12:00 Temperature 97.6 F Pulse Rate 62 Respiratory Rate 17 Blood Pressure 149/71 H Pulse Oximetry 97 Intake & Output 09/18/17 09/19/17 09/19/17 18:59 06:59 18:59 Intake Total 1000 / 1000 0 / 0 Balance 1000 / 1000 0 / 0 Weight 38.555 kg 40.6 kg Intake: IV 1000 / 1000 Oral 0 / 0 Other: # Voids 2 Weight On Admission 40.6 kg Narrative: GENERAL: Thin female patient, lying in bed, appears much older than stated age. SKIN: Focused skin assessment warm/dry. HEAD: Atraumatic. Normocephalic. EYES: Pupils equal and round. No scleral icterus. No injection or drainage. ENT: No nasal bleeding or discharge. Mucous membranes pink and moist. NECK: Trachea midline. No JVD. CARDIOVASCULAR: Regular rate and rhythm. No murmur appreciated. RESPIRATORY: No accessory muscle use. Clear to auscultation. Breath sounds equal bilaterally. GASTROINTESTINAL: Abdomen soft, non-tender, nondistended. No guarding. No rebound tenderness. Hepatic and splenic margins not palpable. MUSCULOSKELETAL: No obvious deformities. No clubbing. No cyanosis. No edema. NEUROLOGICAL: Awake and alert. No obvious cranial nerve deficits. Motor grossly within normal limits. Normal speech. PSYCHIATRIC: Depressed mood and flat affect. Results - Labs CBC & Chem 7: 09/19/17 10:58 09/19/17 10:58 Laboratory Results - last 24 hr 09/18/17 09/18/17 09/19/17 15:50 16:01 10:58 WBC 7.4 RBC 3.67 L Hgb 11.4 L Hct 32.9 L MCV 89.7 MCH 30.9 MCHC 34.5 RDW 15.3 Plt Count 455 H MPV 6.9 L Neut % (Auto) 60.2 Lymph % (Auto) 27.7 [place] % (Auto) 7.9 Eos % (Auto) 3.2 Baso % (Auto) 1.0 Neut # (Auto) 4.4 Lymph # (Auto) 2.0 [place] # (Auto) 0.6 Eos # (Auto) 0.2 Baso # (Auto) 0.1 WBC Differential . Differential Comment Auto diff final PT 11.4 INR 1.1 Sodium Potassium Chloride Carbon Dioxide Anion Gap BUN Creatinine Estimated GFR Random Glucose Calcium Total Bilirubin AST ALT Alkaline Phosphatase Total Protein Albumin Lipase Acetaminophen 144.0 H 09/19/17 10:58 WBC RBC Hgb Hct MCV MCH MCHC RDW Plt Count MPV Neut % (Auto) Lymph % (Auto) [place] % (Auto) Eos % (Auto) Baso % (Auto) Neut # (Auto) Lymph # (Auto) [place] # (Auto) Eos # (Auto) Baso # (Auto) WBC Differential Differential Comment PT INR Sodium 134 L Potassium 3.9 Chloride 100 Carbon Dioxide 25.3 Anion Gap 9 BUN 4 L Creatinine 0.84 Estimated GFR 74 L Random Glucose 111 H Calcium 8.1 L Total Bilirubin 0.1 L AST 15 ALT 16 Alkaline Phosphatase 72 Total Protein 5.6 L D Albumin 2.6 L D Lipase 51 L Acetaminophen Assessment and Plan - Plan Acetaminophen overdose The patient took about 20 500 mg Tylenol tablets. Her acetaminophen level was rising in the emergency department. She was started on N-acetylcysteine drip. Poison control was contacted. The patient was Leroy acted. INR 1.1. -Continue acetylcysteine drip per protocol. -Follow acetaminophen level and LFTs. -Check screen. -Psychiatry consult appreciated. Will d/c to med-psych when medically cleared. -Sitter ordered. Alcohol abuse The patient drinks significant amounts of vodka daily. -Cessation instruction. -CIWA protocol. -Seizure precautions. Renal insufficiency/ Hypokalemia Likely secondary to overdose. Improved. -S/p D5 normal saline with potassium. -Follow BMP and avoid nephrotoxic agents. COPD/ Nicotine dependence The patient smokes 1 pack daily. -Cessation instruction. -Nicotine patch. -Oxygen and nebs as needed. Eating disorder The patient endorses anorexia and bulimia. -ADAT. Chronic abdominal pain The patient has a history of pancreatitis. She continues to drink excessively. Lipase normal. -Trend LFTs. -PPI. PPx: SCDs
--- NOTE | 2017-09-19 16:08 | ECG ---
Date Performed: 09/18/2017 Time Performed: 12:33:53 PTAGE: 42 years EKG: Sinus rhythm NONSPECIFIC T-WAVE ABNORMALITY BORDERLINE ECG Since the PREVIOUS TRACING , no significant change noted PREVIOUS TRACIN08/17/2017 21.49 DOCTOR: Dayanara Elise Interpretating Date/Time 09/19/2017 16:07:37
[2017-09-19 16:32] LABS: INR 1.2 Ratio; Prothrombin Time 12.5 sec (9.8-11.6)
[2017-09-19 16:51] LABS: Acetaminophen 2.8 mcg/mL (10.0-30.0); Alanine Aminotransferase 12 U/L (10-53); Albumin 2.4 g/dL (3.4-5.0); Aspartate Aminotransferase 14 U/L (15-37)
[2017-09-19 16:52] LABS: Alkaline Phosphatase 13 U/L (45-117); Total Protein 5.3 g/dL (6.4-8.2)
[2017-09-19] MEDS: LORazepam 1 MG Tablet PO PRN (20:15)
[2017-09-19] MEDS ORDERED: traZODone 100 MG Tablet PO SCH (21:00)
[2017-09-20] MEDS: LORazepam 1 MG Tablet PO PRN ×4 (03:58→18:29)
[2017-09-20 06:10] LABS: Baso # (Auto) 0.1 th/mm3 (0.0-0.2); Baso % (Auto) 1.2 % (0.0-2.0); Eos # (Auto) 0.3 th/mm3 (0.0-0.4); Hematocrit 30.4 % (35.0-46.0); Hemoglobin 10.6 gm/dL (11.6-15.3); Lymph # (Auto) 3.1 th/mm3 (1.0-4.8); Lymph % (Auto) 37.4 % (9.0-44.0); Mean Corpuscular Hemoglobin 31.6 pg (27.0-34.0); Mean Corpuscular Volume 90.4 fL (80.0-100.0); Mean Platelet Volume 7.1 fL (7.0-11.0); Mono # (Auto) 0.7 th/mm3 (0.0-0.9); Mono % (Auto) 8.4 % (0.0-8.0); Neut # (Auto) 4.1 th/mm3 (1.8-7.7); Platelet Count 428 th/mm3 (150-450); Red Blood Count 3.36 mil/mm3 (4.00-5.30); Red Cell Distribution Width 15.8 % (11.6-17.2); White Blood Count 8.4 th/mm3 (4.0-11.0)
[2017-09-20 06:25] LABS: Albumin 2.4 g/dL (3.4-5.0); Calcium 8.5 mg/dL (8.5-10.1); Carbon Dioxide 25.5 meq/L (21.0-32.0); Potassium 3.5 meq/L (3.5-5.1)
[2017-09-20 06:31] LABS: Total Protein 5.2 g/dL (6.4-8.2)
[2017-09-20] MEDS ORDERED: Potassium Chloride 25 MEQ Effervescent Tablet PO ONE (08:31)
--- NOTE | 2017-09-20 10:30 | P.PNIM ---
Subjective Interval history: The patient was resting comfortably in bed. She had a few questions which were answered. She stated that she never was told that she had a slow heart rate before. She says she is chronically dizzy in the morning if she gets up from bed too fast. Sitter at the bedside. Discussed with nursing. Physical Exam Vital signs: Vital Signs 09/19/17 12:00 09/19/17 16:00 09/19/17 20:00 Temperature 97.6 F 97.7 F 97.8 F Pulse Rate 62 60 59 L Respiratory Rate 17 17 18 Blood Pressure 149/71 H 137/70 146/86 H Pulse Oximetry 97 100 97 09/19/17 22:51 09/20/17 00:00 09/20/17 01:05 Temperature 98 F Pulse Rate 46 L 38 L 47 L Respiratory Rate 18 Blood Pressure 126/72 Pulse Oximetry 97 09/20/17 03:37 09/20/17 04:33 09/20/17 08:00 Temperature 97.8 F 97.9 F Pulse Rate 55 L 49 L 66 Respiratory Rate 18 17 Blood Pressure 105/71 126/74 Pulse Oximetry 96 99 Intake & Output 09/19/17 09/20/17 09/20/17 18:59 06:59 18:59 Intake Total 2739.25 / 2739.25 Balance 2739.25 / 2739.25 Weight 41.1 kg Intake: IV / D5W/NS + KCL 20 mEq Inj 1,000 1000 / 1000 ML @ 125 mls/hr IV.CONT .Q8H [facility] Rx#:[id number] Acetadote Inj 3,850 MG In D5W 1019.25 / 1019.25 Inj 1,000 ML @ 63.703 mls/hr IV .SIG ONCE ONE Rx#:[id number] Oral 720 / 720 Other: # Voids 3 1 Narrative: GENERAL: Thin female patient, lying in bed, appears much older than stated age. SKIN: Focused skin assessment warm/dry. HEAD: Atraumatic. Normocephalic. EYES: Pupils equal and round. No scleral icterus. No injection or drainage. ENT: No nasal bleeding or discharge. Mucous membranes pink and moist. NECK: Trachea midline. No JVD. CARDIOVASCULAR: Bradycardic. No murmur appreciated. RESPIRATORY: No accessory muscle use. Clear to auscultation. Breath sounds equal bilaterally. GASTROINTESTINAL: Abdomen soft, non-tender, nondistended. No guarding. No rebound tenderness. Hepatic and splenic margins not palpable. MUSCULOSKELETAL: No obvious deformities. No clubbing. No cyanosis. No edema. NEUROLOGICAL: Awake and alert. No obvious cranial nerve deficits. Motor grossly within normal limits. Normal speech. Results - Labs CBC & Chem 7: 09/20/17 04:38 09/20/17 04:38 Laboratory Results - last 24 hr 09/19/17 09/19/17 09/19/17 10:58 10:58 15:39 WBC 7.4 RBC 3.67 L Hgb 11.4 L Hct 32.9 L MCV 89.7 MCH 30.9 MCHC 34.5 RDW 15.3 Plt Count 455 H MPV 6.9 L Neut % (Auto) 60.2 Lymph % (Auto) 27.7 [place] % (Auto) 7.9 Eos % (Auto) 3.2 Baso % (Auto) 1.0 Neut # (Auto) 4.4 Lymph # (Auto) 2.0 [place] # (Auto) 0.6 Eos # (Auto) 0.2 Baso # (Auto) 0.1 WBC Differential . Differential Comment Auto diff final PT 12.5 H INR 1.2 Sodium 134 L Potassium 3.9 Chloride 100 Carbon Dioxide 25.3 Anion Gap 9 BUN 4 L Creatinine 0.84 Estimated GFR 74 L Random Glucose 111 H Calcium 8.1 L Total Bilirubin 0.1 L Direct Bilirubin Indirect Bilirubin AST 15 ALT 16 Alkaline Phosphatase 72 Total Protein 5.6 L D Albumin 2.6 L D Lipase 51 L Acetaminophen 09/19/17 09/20/17 09/20/17 15:39 04:38 04:38 WBC 8.4 RBC 3.36 L Hgb 10.6 L Hct 30.4 L MCV 90.4 MCH 31.6 MCHC 35.0 RDW 15.8 Plt Count 428 MPV 7.1 Neut % (Auto) 49.0 Lymph % (Auto) 37.4 [place] % (Auto) 8.4 H Eos % (Auto) 4.0 Baso % (Auto) 1.2 Neut # (Auto) 4.1 Lymph # (Auto) 3.1 [place] # (Auto) 0.7 Eos # (Auto) 0.3 Baso # (Auto) 0.1 WBC Differential . Differential Comment Auto diff final PT INR Sodium 139 Potassium 3.5 Chloride 105 Carbon Dioxide 25.5 Anion Gap 9 BUN 3 L Creatinine 0.77 Estimated GFR 81 L Random Glucose 79 Calcium 8.5 Total Bilirubin Less than 0.1 L 0.2 Direct Bilirubin 0.1 0.1 Indirect Bilirubin 0.0 0.1 AST 14 L 14 L ALT 12 10 Alkaline Phosphatase 13 L 66 Total Protein 5.3 L 5.2 L Albumin 2.4 L 2.4 L Lipase Acetaminophen 2.8 L Assessment and Plan - Plan Acetaminophen overdose The patient took about 20 500 mg Tylenol tablets. Her acetaminophen level was rising in the emergency department, now 2.8. She was started on N- acetylcysteine drip. Poison control was contacted. The patient was Leroy acted. INR 1.1. S/p acetylcysteine drip per protocol. -Follow LFTs. -Psychiatry consult appreciated. Will d/c to med-psych when medically cleared. -Sitter. Alcohol abuse The patient drinks significant amounts of vodka daily. -Cessation instruction. -CIWA protocol. -Seizure precautions. Bradycardia May be exacerbated by trazodone. EKG with sinus bradycardia. -check TSH. -hold Trazodone. -continue telemetry. Renal insufficiency/ Hypokalemia Likely secondary to overdose. Improved. -S/p D5 normal saline with potassium. -Follow BMP and avoid nephrotoxic agents. COPD/ Nicotine dependence The patient smokes 1 pack daily. -Cessation instruction. -Nicotine patch. -Oxygen and nebs as needed. Eating disorder The patient endorses anorexia and bulimia. -ADAT. Chronic abdominal pain The patient has a history of pancreatitis. She continues to drink excessively. Lipase normal. -Trend LFTs. -PPI. PPx: SCDs
--- NOTE | 2017-09-20 10:36 | ECG ---
Date Performed: 09/20/2017 Time Performed: 08:48:39 PTAGE: 42 years EKG: SINUS BRADYCARDIA BORDERLINE ECG Compared to prior electrocardiogram, Rate has slowed and n onspecific T-wave changes are no longer present. PREVIOUS TRACING : 09/18/2017 12.33 DOCTOR: Loyd Leyva Interpretating Date/Time 09/20/2017 10:33:52
[2017-09-20 11:34] LABS: INR 1.2 Ratio; Prothrombin Time 11.7 sec (9.8-11.6)
--- NOTE | 2017-09-20 13:16 | P.PNPSY ---
Subjective Remarks: The patient was seen today for psychiatric reevaluation. Patient is calm, cooperative, pleasant. She reports feeling better. She reports poor sleep at night, last night she was not given her trazodone due to her bradycardia. Patient reports that she is willing to accept and to continue the help and recommendations about her depression and alcoholism. At this moment she denies suicidal and homicidal ideation, she denies visual and auditory hallucinations. The patient was able to contract for safety in the hospital. She says clearly that she would call the nurses if she had any suicidal thoughts. Mental Status Examination Appearance: Appropriate Consciousness: Alert Orientation: x4 Motor Activity: Normal gait Speech: Unremarkable Language: Adequate Fund of Knowledge: Adequate Attention and Concentration: Adequate Mood: Sad Affect: Sad Thought Process & Associations: Intact Thought Content: Appropriate Hallucination Type: None Delusion Type: None Suicidal Ideation: Yes Suicidal Plan: No Suicidal Intention: No Homicidal Ideation: No Homicidal Plan: No Homicidal Intention: No Insight: Poor Judgment: Poor Assessment and Plan - Assessment (1) Bipolar depression Code(s): F31.30 - Bipolar disorder, current episode depressed, mild or moderate severity, unspecified Status: Acute - Plan Plan: Okay with holding psychotropics until bradycardia resolved. 1:1 could be discontinue since the patient was able to contract for safety and she seems to be doing better. Transfer to psychiatry was medically stable Justification for Continued Inpatient Stay: Patient will be admitted in psychiatry was medically stable.
[2017-09-20] MEDS ORDERED: Acetaminophen 325 MG Tablet PO ONE (22:41)
[2017-09-20] MEDS ORDERED: Melatonin 5 MG Tablet PO ONE (22:41)
[2017-09-21 04:43] LABS: Hematocrit 32.1 % (35.0-46.0); Mean Corpuscular HGB Conc 34.3 % (32.0-36.0); Mean Corpuscular Hemoglobin 31.1 pg (27.0-34.0); Mean Corpuscular Volume 90.5 fL (80.0-100.0); Platelet Count 417 th/mm3 (150-450); Red Blood Count 3.55 mil/mm3 (4.00-5.30); Red Cell Distribution Width 15.6 % (11.6-17.2); White Blood Count 9.1 th/mm3 (4.0-11.0)
[2017-09-21 05:07] LABS: Calcium 8.3 mg/dL (8.5-10.1); Carbon Dioxide 27.4 meq/L (21.0-32.0); Magnesium 1.8 mg/dL (1.5-2.5)
[2017-09-21 05:08] LABS: Potassium 4.1 meq/L (3.5-5.1)
[2017-09-21] MEDS: LORazepam 1 MG Tablet PO PRN ×3 (12:01→20:30)
[2017-09-21] MEDS ORDERED: Ibuprofen 600 MG Tablet PO ONE (12:01)
--- NOTE | 2017-09-21 12:24 | P.PNIM ---
Subjective Interval history: The patient reported feeling dizzy with ambulation. She said she chronically feels lightheaded and near fainting when getting up from a lying position at times. She does not recall being told that she has a slow heart rate. She does her anxiety is under control. Discussed with nursing at the bedside. Physical Exam Vital signs: Vital Signs 09/20/17 16:00 09/20/17 20:00 09/21/17 00:00 Temperature 97.8 F 97.9 F 97.5 F L Pulse Rate 55 L 57 L 49 L Respiratory Rate 17 18 18 Blood Pressure 154/73 H 166/79 H 142/80 H Pulse Oximetry 100 100 99 09/21/17 01:07 09/21/17 04:00 09/21/17 08:00 Temperature 97.9 F 97.9 F Pulse Rate 48 L 47 L 55 L Respiratory Rate 18 18 Blood Pressure 138/70 134/80 Pulse Oximetry 97 100 Intake & Output 09/20/17 09/21/17 09/21/17 18:59 06:59 18:59 Intake Total 1440 / 1440 480 / 480 Balance 1440 / 1440 480 / 480 Weight 41.1 kg 41.3 kg Intake: Oral 1440 / 1440 480 / 480 Other: # Voids 6 3 # Bowel Movements 1 Narrative: GENERAL: Thin female patient, lying in bed, appears much older than stated age. SKIN: Focused skin assessment warm/dry. HEAD: Atraumatic. Normocephalic. EYES: Pupils equal and round. No scleral icterus. No injection or drainage. ENT: No nasal bleeding or discharge. Mucous membranes pink and moist. NECK: Trachea midline. No JVD. CARDIOVASCULAR: Bradycardic. No murmur appreciated. RESPIRATORY: No accessory muscle use. Clear to auscultation. Breath sounds equal bilaterally. GASTROINTESTINAL: Abdomen soft, non-tender, nondistended. No guarding. No rebound tenderness. Hepatic and splenic margins not palpable. MUSCULOSKELETAL: No obvious deformities. No clubbing. No cyanosis. No edema. NEUROLOGICAL: Awake and alert. No obvious cranial nerve deficits. Motor grossly within normal limits. Normal speech. Results - Labs CBC & Chem 7: 09/21/17 04:07 09/21/17 04:01 Laboratory Results - last 24 hr 09/21/17 09/21/17 04:01 04:07 WBC 9.1 RBC 3.55 L Hgb 11.0 L Hct 32.1 L MCV 90.5 MCH 31.1 MCHC 34.3 RDW 15.6 Plt Count 417 MPV 7.0 Sodium 132 L Potassium 4.1 Chloride 98 Carbon Dioxide 27.4 Anion Gap 7 BUN 2 L Creatinine 0.94 Estimated GFR 65 L Random Glucose 96 Calcium 8.3 L Magnesium 1.8 Assessment and Plan - Plan Acetaminophen overdose The patient took about 20 500 mg Tylenol tablets. Her acetaminophen level was rising in the emergency department, now 2.8. She was started on N- acetylcysteine drip. Poison control was contacted. The patient was Leroy acted. INR 1.1. S/p acetylcysteine drip per protocol. -Psychiatry consult appreciated. Will d/c to med-psych when medically cleared. -d/c sitter per psych. Alcohol abuse The patient drinks significant amounts of vodka daily. -Cessation instruction. -CIWA protocol. -Seizure precautions. Bradycardia May be exacerbated by trazodone. EKG with sinus bradycardia. Symptomatic. TSH WNL. -hold Trazodone. -continue telemetry. -check orthostatics. -cardiology eval. Renal insufficiency/ Hypokalemia Likely secondary to overdose. Improved. -S/p D5 normal saline with potassium. -Follow BMP and avoid nephrotoxic agents. Resolved. COPD/ Nicotine dependence The patient smokes 1 pack daily. -Cessation instruction. -Nicotine patch. -Oxygen and nebs as needed. Eating disorder The patient endorses anorexia and bulimia. -ADAT. Chronic abdominal pain The patient has a history of pancreatitis. She continues to drink excessively. Lipase/ LFTs normal. -PPI. Headache Pt has been complaining of a headache. -ibuprofen as needed. PPx: SCDs
--- NOTE | 2017-09-21 15:18 | P.CONCA ---
<Stefany Andre N - Last Filed: 09/21/17 16:39> History of Present Illness Service: Cardiology Consult date: 09/21/17 Requesting Physician: Giovani Faust Reason for Consult: Symptomatic bradycardia Primary Care Provider: Sari Thakkar MD Family Provider: No Primary Care Physician Chief Complaint: Overdose History of Present Illness: This is a 42-year-old female who was admitted on September 18, 2017 for an overdose of Tylenol. In speaking with her, she stated that she wanted to forget her pain and depression and decided to take 20 Tylenol pills after taking 4 shots of vodka. She called her fianc afterwards and wanted to be taken to the hospital. She has a psychiatric history of bipolar disorder, alcohol use disorder, eating disorder, borderline personality disorder, anxiety , and previous psychiatric hospitalization. Other medical history includes COPD , gastroesophageal reflux disease, gastric ulcer, pancreatitis and pneumonia. She denies any cardiac history. She is currently sinus belle on monitor with systolic pressures in the 130s. She denies any chest pain, pressure, shortness of breath or palpitations. She does complain of dizziness when standing up that last about 5-10 seconds. Patient is very cachectic and weighs 90 pounds. Review of Systems All other systems reviewed negative except as stated in HPI PMFSH - History History Provided By: Patient - Medical History Medical History: Medical History (Last Updated 09/18/17 @ 18:25 by Giovani Faust DO) Anxiety Bulimia Major depression Anorexia COPD (chronic obstructive pulmonary disease) GERD (gastroesophageal reflux disease) Gastric ulcer Pancreatitis Pneumonia - Surgical History Surgical History: Surgical History (Last Reviewed 09/18/17 @ 16:56 by TERESITA Sloan) No history of previous surgery - Family History Family History: Family History (Last Updated 09/18/17 @ 18:25 by Giovani Faust DO) Other Hypertension - Tobacco History Second Hand Smoke Exposure: Yes Tobacco Use In Past 30 Days: Yes Smoking Status: Current every day smoker Tobacco Type: Cigarettes - Alcohol History How Often Do You Have a Drink Containing Alcohol: 4 or more times a week - Substance Use History Substance History: Active Abuse - Substance Use Type Alcohol Status: Active Route Used: By Mouth Reason for Use: Calm Down, Feels Good, Socialization - Travel History Recent Travel in the [facility] Within the Last 8 Weeks: No Recent Travel Out of the Country Within the Last 8 Weeks: No - Immunization History Tetanus Immunization: Unsure Hx Influenza Vaccine This Season: Yes Medications and Allergies Allergies Allergy/AdvReac Type Severity Reaction Status Date / Time lithium Allergy Severe Seizures Verified 08/17/17 14:10 *MDRO Multi-Drug Resistant AdvReac Unknown Cleared Uncoded 08/17/17 14:10 Organism 01/12/16 Home Medications Medication Instructions Recorded Confirmed Type gabapentin 300 mg PO TID 08/17/17 09/18/17 History lurasidone [Latuda] 40 mg PO DAILY 08/17/17 09/18/17 History trazodone 200 mg PO HS 08/17/17 09/18/17 History Active Medications: Active Medications Al Hydroxide/Mg Hydroxide (Milk Of Seesmicmarquita Liq) 30 ml PO DAILY PRN PRN Reason: CONSTIPATION Last Admin: 09/20/17 18:26 Dose: 30 ml Flumazenil (Romazecon Inj) 0.2 mg IV.PUSH Q1M PRN PRN Reason: OVERSEDATION Haloperidol Lactate (Haldol Inj) 1 mg IV.PUSH Q15M PRN PRN Reason: for severe agitation Lorazepam (Ativan) 1 mg PO Q4H PRN PRN Reason: for CIWA 8-10 Last Admin: 09/21/17 12:01 Dose: 1 mg Lorazepam (Ativan) 2 mg PO Q2H PRN PRN Reason: for CIWA 11-14 Last Admin: 09/21/17 08:40 Dose: 2 mg Lorazepam (Ativan Inj) 2 mg IV.PUSH Q1H PRN PRN Reason: for CIWA 15-20 Last Admin: 09/19/17 04:09 Dose: 2 mg Lorazepam (Ativan Inj) 2 mg IV.PUSH Q15M PRN PRN Reason: for CIWA > 20 Lorazepam (Ativan Inj) 1 mg IV.PUSH Q4H PRN PRN Reason: for CIWA 8-10 if NPO Last Admin: 09/19/17 15:55 Dose: 1 mg Nicotine (Habitrol 21 Mg Patch.24 Hr) 1 patch T-DERMAL DAILY JANAY Last Admin: 09/21/17 08:41 Dose: 1 patch Ondansetron HCl (Zofran Inj) 4 mg IV.PUSH Q6H PRN PRN Reason: NAUSEA OR VOMITING Last Admin: 09/21/17 06:19 Dose: 4 mg Pantoprazole Sodium (Protonix) 40 mg PO BID JANAY Last Admin: 09/21/17 08:40 Dose: 40 mg Temazepam (Restoril) 7.5 mg PO HS PRN PRN Reason: INSOMNIA Last Admin: 09/20/17 23:23 Dose: 7.5 mg Trazodone HCl (Desyrel) 100 mg PO HS JANAY Last Admin: 09/19/17 20:15 Dose: 100 mg Exam Vital signs: Vital Signs 09/20/17 16:00 09/20/17 20:00 09/21/17 00:00 Temperature 97.8 F 97.9 F 97.5 F L Pulse Rate 55 L 57 L 49 L Respiratory Rate 17 18 18 Blood Pressure 154/73 H 166/79 H 142/80 H Pulse Oximetry 100 100 99 09/21/17 01:07 09/21/17 04:00 09/21/17 08:00 Temperature 97.9 F 97.9 F Pulse Rate 48 L 47 L 55 L Respiratory Rate 18 18 Blood Pressure 138/70 134/80 Pulse Oximetry 97 100 09/21/17 12:00 Temperature 97.6 F Pulse Rate 52 L Respiratory Rate 17 Blood Pressure 140/75 Pulse Oximetry 100 Intake & Output 09/20/17 09/21/17 09/21/17 18:59 06:59 18:59 Intake Total 1440 / 1440 480 / 480 Balance 1440 / 1440 480 / 480 Weight 41.1 kg 41.3 kg Intake: Oral 1440 / 1440 480 / 480 Other: # Voids 6 3 # Bowel Movements 1 Narrative: GENERAL: This is a cachectic patient, in no apparent distress. Patient speaks in clear complete sentences. Patient is pleasant. HEENT: Head is atraumatic and normocephalic. Neck is supple without lymphadenopathy and trachea is midline. No JVD or carotid bruits. CARDIOVASCULAR: Sinus bradycardia without murmurs, gallops, or rubs. RESPIRATORY: Clear to auscultation. Breath sounds equal bilaterally. No wheezes , rales, or rhonchi. Chest wall is nontender. No use of accessory muscles. GASTROINTESTINAL: Abdomen is nontender, nondistended. Abdomen soft. No obvious pulsatile mass or bruit. No CVA tenderness. Strong femoral pulses bilaterally. Normal bowel sounds in all quadrants. MUSCULOSKELETAL: Patient is moving upper and lower extremities freely. No calf tenderness or edema, no Homans sign. Strong pulses in upper and lower extremities. NEUROLOGICAL: Patient is alert and oriented. Cranial nerves 2-12 are grossly intact. No focal deficits and speech is clear. SKIN: No rash and turgor is normal. Results 09/21/17 04:07 09/21/17 04:01 CBC 09/21/17 Range/Units 04:07 WBC 9.1 (4.0-11.0) th/mm3 RBC 3.55 L (4.00-5.30) mil/mm3 Hgb 11.0 L (11.6-15.3) gm/dL Hct 32.1 L (35.0-46.0) % Plt Count 417 (150-450) th/mm3 Comprehensive Metabolic Panel 09/21/17 Range/Units 04:01 Sodium 132 L (136-145) meq/L Potassium 4.1 (3.5-5.1) meq/L Chloride 98 (98-107) meq/L Carbon Dioxide 27.4 (21.0-32.0) meq/L BUN 2 L (7-18) mg/dL Creatinine 0.94 (0.50-1.00) mg/dL Calcium 8.3 L (8.5-10.1) mg/dL Intake and Output 09/20/17 09/21/17 09/21/17 22:59 06:59 14:59 Intake Total 1440 / 1440 480 / 480 Balance 1440 / 1440 480 / 480 Intake: Oral 1440 / 1440 480 / 480 Other: # Voids 6 3 # Bowel Movements 1 Weight 41.3 kg Assessment and Plan - Assessment (1) Symptomatic bradycardia Code(s): R00.1 - Bradycardia, unspecified Status: Acute (2) Hyponatremia Code(s): E87.1 - Hypo-osmolality and hyponatremia Status: Acute (3) Anorexia nervosa with bulimia Code(s): F50.02 - Anorexia nervosa, binge eating/purging type Status: Acute (4) Acute kidney injury Code(s): N17.9 - Acute kidney failure, unspecified Status: Acute (5) Overdose on Tylenol Code(s): T39.1X1A - Poisoning by 4-Aminophenol derivatives, accidental ( unintentional), initial encounter Status: Acute (6) Bipolar depression Code(s): F31.30 - Bipolar disorder, current episode depressed, mild or moderate severity, unspecified Status: Acute - Plan Multiple health complications, unsure if symptoms are related to bradycardia. Orthostatic blood pressures once a shift. No clear indication for permanent pacemaker. Continue to monitor on telemetry. Will follow during hospitalization. This patient was seen and evaluated by Dr. Rosas who participated in care, management and decision-making. <Brett Rosas - Last Filed: 09/21/17 17:21> History of Present Illness Primary Care Provider: Sari Thakkar MD Family Provider: No Primary Care Physician [facility] - Medical History Medical History: Medical History (Last Updated 09/18/17 @ 18:25 by Giovani Faust DO) Anxiety Bulimia Major depression Anorexia COPD (chronic obstructive pulmonary disease) GERD (gastroesophageal reflux disease) Gastric ulcer Pancreatitis Pneumonia - Surgical History Surgical History: Surgical History (Last Reviewed 09/18/17 @ 16:56 by TERESITA Sloan) No history of previous surgery - Family History Family History: Family History (Last Updated 09/18/17 @ 18:25 by Giovani Faust DO) Other Hypertension Medications and Allergies Active Medications: Active Medications Al Hydroxide/Mg Hydroxide (Milk Of Sarita Trinidad) 30 ml PO DAILY PRN PRN Reason: CONSTIPATION Last Admin: 09/20/17 18:26 Dose: 30 ml Flumazenil (Romazecon Inj) 0.2 mg IV.PUSH Q1M PRN PRN Reason: OVERSEDATION Haloperidol Lactate (Haldol Inj) 1 mg IV.PUSH Q15M PRN PRN Reason: for severe agitation Lorazepam (Ativan) 1 mg PO Q4H PRN PRN Reason: for CIWA 8-10 Last Admin: 09/21/17 16:00 Dose: 1 mg Lorazepam (Ativan) 2 mg PO Q2H PRN PRN Reason: for CIWA 11-14 Last Admin: 09/21/17 08:40 Dose: 2 mg Lorazepam (Ativan Inj) 2 mg IV.PUSH Q1H PRN PRN Reason: for CIWA 15-20 Last Admin: 09/19/17 04:09 Dose: 2 mg Lorazepam (Ativan Inj) 2 mg IV.PUSH Q15M PRN PRN Reason: for CIWA > 20 Lorazepam (Ativan Inj) 1 mg IV.PUSH Q4H PRN PRN Reason: for CIWA 8-10 if NPO Last Admin: 09/19/17 15:55 Dose: 1 mg Nicotine (Habitrol 21 Mg Patch.24 Hr) 1 patch T-DERMAL DAILY [facility] Last Admin: 09/21/17 08:41 Dose: 1 patch Ondansetron HCl (Zofran Inj) 4 mg IV.PUSH Q6H PRN PRN Reason: NAUSEA OR VOMITING Last Admin: 09/21/17 06:19 Dose: 4 mg Pantoprazole Sodium (Protonix) 40 mg PO BID [facility] Last Admin: 09/21/17 08:40 Dose: 40 mg Temazepam (Restoril) 7.5 mg PO HS PRN PRN Reason: INSOMNIA Last Admin: 09/20/17 23:23 Dose: 7.5 mg Trazodone HCl (Desyrel) 100 mg PO HS [facility] Last Admin: 09/19/17 20:15 Dose: 100 mg Exam Vital signs: Vital Signs 09/20/17 20:00 09/21/17 00:00 09/21/17 01:07 Temperature 97.9 F 97.5 F L Pulse Rate 57 L 49 L 48 L Respiratory Rate 18 18 Blood Pressure 166/79 H 142/80 H Pulse Oximetry 100 99 09/21/17 04:00 09/21/17 08:00 09/21/17 09:00 Temperature 97.9 F 97.9 F Pulse Rate 47 L 55 L 46 L Respiratory Rate 18 18 Blood Pressure 138/70 134/80 Pulse Oximetry 97 100 09/21/17 12:00 09/21/17 16:00 Temperature 97.6 F 98.1 F Pulse Rate 52 L 52 L Respiratory Rate 17 19 Blood Pressure 140/75 148/82 H Pulse Oximetry 100 100 Intake & Output 09/20/17 09/21/17 09/21/17 18:59 06:59 18:59 Intake Total 1440 / 1440 480 / 480 Balance 1440 / 1440 480 / 480 Weight 90 lb 9.76 oz 91 lb 0.815 oz Intake: Oral 1440 / 1440 480 / 480 Other: # Voids 6 3 # Bowel Movements 1 Results 09/21/17 04:07 09/21/17 04:01 CBC 09/21/17 Range/Units 04:07 WBC 9.1 (4.0-11.0) th/mm3 RBC 3.55 L (4.00-5.30) mil/mm3 Hgb 11.0 L (11.6-15.3) gm/dL Hct 32.1 L (35.0-46.0) % Plt Count 417 (150-450) th/mm3 Comprehensive Metabolic Panel 09/21/17 Range/Units 04:01 Sodium 132 L (136-145) meq/L Potassium 4.1 (3.5-5.1) meq/L Chloride 98 (98-107) meq/L Carbon Dioxide 27.4 (21.0-32.0) meq/L BUN 2 L (7-18) mg/dL Creatinine 0.94 (0.50-1.00) mg/dL Calcium 8.3 L (8.5-10.1) mg/dL Intake and Output 09/21/17 09/21/17 09/21/17 06:59 14:59 22:59 Intake Total 480 / 480 Balance 480 / 480 Intake: Oral 480 / 480 Other: # Voids 3 Weight 91 lb 0.815 oz Assessment and Plan - Assessment (1) Symptomatic bradycardia Code(s): R00.1 - Bradycardia, unspecified Status: Acute (2) Hyponatremia Code(s): E87.1 - Hypo-osmolality and hyponatremia Status: Acute (3) Anorexia nervosa with bulimia Code(s): F50.02 - Anorexia nervosa, binge eating/purging type Status: Acute (4) Acute kidney injury Code(s): N17.9 - Acute kidney failure, unspecified Status: Acute (5) Overdose on Tylenol Code(s): T39.1X1A - Poisoning by 4-Aminophenol derivatives, accidental ( unintentional), initial encounter Status: Acute (6) Bipolar depression Code(s): F31.30 - Bipolar disorder, current episode depressed, mild or moderate severity, unspecified Status: Acute - Attending Attestation Patient seen and examined. I reviewed and agree with the evaluation and plan as presented. No indication for permanent pacemaker placement at this time. Continue monitoring. <Stefany Andre - Last Filed: 09/21/17 16:39> (5) Overdose on Tylenol Qualifiers: Encounter type: initial encounter Injury intent: intentional self-harm Qualified Code(s): T39.1X2A - Poisoning by 4-Aminophenol derivatives, intentional self-harm, initial encounter <Brett Rosas - Last Filed: 09/21/17 17:21> (5) Overdose on Tylenol Qualifiers: Encounter type: initial encounter Injury intent: intentional self-harm Qualified Code(s): T39.1X2A - Poisoning by 4-Aminophenol derivatives, intentional self-harm, initial encounter
[2017-09-22] MEDS: LORazepam 1 MG Tablet PO PRN ×2 (06:34→10:08)
[2017-09-22] MEDS ORDERED: Sod Chloride 0.9% Inj 1,000 ML IV.SIG ONE (08:47)
[2017-09-22 09:23] VITALS: O2SAT 99
--- NOTE | 2017-09-22 09:34 | P.DS ---
Date of admission: 09/18/17 17:21 Primary care physician: Sari Thakkar MD Anticipated date of discharge: 09/22/17 Brief History from admission: The patient is a 42-year-old female with a past medical history significant for alcohol abuse, depression and eating disorder who is presenting to the hospital following an overdose of Tylenol. The patient states that she has a history of depression. She has been drinking on a daily basis chronically. She states that she generally drinks 5-6 vodka minis daily. She said that she has been feeling rather depressed and this morning she took about 4 shots of vodka and decided that she did not want to feel this way anymore. She stated that she was not actively suicidal but she did want to make things go away by taking a lot of pills. She took about 20 Tylenol pills around 10 AM and called her fianc afterwards because she did want to get help. She states that she wants to quit drinking alcohol. She says she has been following with [facility] for [facility] medications. She said that she wanted there for detox a couple of weeks ago. The patient is currently feeling nauseous and has a headache. She states that she has had sporadic fevers for the past couple of months, up to 102. She states she has chronic abdominal pain. She has not been eating well because she has an eating disorder. Discussed with nursing. DS: Diagnosis - Discharge Diagnosis (1) Acute kidney injury Status: Acute (2) Overdose on Tylenol Status: Acute (3) Bipolar depression Status: Acute DS: Medications - Discharge Medications Prescriptions: ondansetron [Zofran ODT] 4 mg PO Q6-8H PRN #20 tab PRN Reason: n/v DS: Summary Hospital Course: Acetaminophen overdose The patient took about 20 500 mg Tylenol tablets. Her acetaminophen level was rising in the emergency department, now 2.8. She was started on an N- acetylcysteine drip. Poison control was contacted. The patient was Leroy acted and a sitter was ordered. INR was 1.1. She completed the acetylcysteine drip per protocol. Psychiatry was consulted. Her psychiatric medications were put on hold. The pt is medically clear for discharge to psychiatry. Alcohol abuse The patient drinks significant amounts of vodka daily. She received cessation instruction. She was placed on the CIWA protocol and seizure precautions. Bradycardia/ Orthostatic hypotension EKG with sinus bradycardia. TSH WNL. She was monitored on telemetry. She was found to have orthostatic hypotension. Cardiology was consulted and stated that there is no indication for pacemaker placement and that her cardiac status is stable. We will continue to hold trazodone and Latuda as they can cause bradycardia and orthostatic hypotension. We added Florinef. She received IVFs. She was encouraged to liberalize salt intake in her diet. She will follow up with her PCP. BRBPR The pt complained of bleeding from the rectum. An examination was performed in the presence of a female nurse which demonstrated no bleeding but several external hemorrhoids. The pt will be started on a course of hydrocortisone suppositories. Renal insufficiency/ Hypokalemia S/p D5 normal saline with potassium. Resolved. COPD/ Nicotine dependence The patient smokes 1 pack daily. She received cessation instruction. She was given a nicotine patch. She received xxygen and nebs as needed. Chronic abdominal pain The patient has a history of pancreatitis. She continues to drink excessively. Lipase/ LFTs normal. She received a PPI. Headache She received ibuprofen as needed. - Time Spent with Patient Total time spent providing and/or coordinating discharge services: Less than 30 minutes - Quality: VTE Deep Vein Thrombosis/Pulmonary Embolism Present on Admission: No Exam Vital signs: Vital Signs 09/21/17 12:00 09/21/17 16:00 09/21/17 20:00 Temperature 97.6 F 98.1 F 97.7 F Pulse Rate 52 L 52 L 53 L Respiratory Rate 17 19 17 Blood Pressure 140/75 148/82 H 140/81 Pulse Oximetry 100 100 100 09/22/17 00:00 09/22/17 04:00 09/22/17 08:00 Temperature 97.2 F L 97.8 F 98.5 F Pulse Rate 98 H 50 L 46 L Respiratory Rate 17 17 14 Blood Pressure 89/60 L 144/83 H 135/74 Pulse Oximetry 100 97 99 Intake & Output 09/21/17 09/22/17 09/22/17 18:59 06:59 18:59 Intake Total 800 / 800 987 / 987 Balance 800 / 800 987 / 987 Weight 40.5 kg Intake: IV 739 / 739 Oral 800 / 800 248 / 248 Other: # Voids 4 3 Narrative: GENERAL: Thin female patient, lying in bed, appears much older than stated age. SKIN: Focused skin assessment warm/dry. HEAD: Atraumatic. Normocephalic. EYES: Pupils equal and round. No scleral icterus. No injection or drainage. ENT: No nasal bleeding or discharge. Mucous membranes pink and moist. NECK: Trachea midline. No JVD. CARDIOVASCULAR: Bradycardic. No murmur appreciated. RESPIRATORY: No accessory muscle use. Clear to auscultation. Breath sounds equal bilaterally. GASTROINTESTINAL: Abdomen soft, non-tender, nondistended. No guarding. No rebound tenderness. Hepatic and splenic margins not palpable. MUSCULOSKELETAL: No obvious deformities. No clubbing. No cyanosis. No edema. NEUROLOGICAL: Awake and alert. No obvious cranial nerve deficits. Motor grossly within normal limits. Normal speech. Results Procedures completed during hospitalization: None Discharge Plan - Discharge Disposition Patient Disposition: 63 [facility] To [facility] - Discharge Condition Condition: Stable - Discharge Order Discharge Orders: Discharge Order (Routine); Ordered 09/22/17 Ordered By: Giovani Faust - Discharge Details Anticipated Discharge Date: 09/22/17 Discharge Comment: OK to discharge following fluid bolus - Physicians Team Primary Care Provider: Sari Thakkar Attending Provider: Giovani Faust Other Providers: Manuel Leos MD ; Brett Rosas MD
--- NOTE | 2017-09-22 12:03 | P.PNCA ---
<Stefany Andre N - Last Filed: 09/22/17 11:56> Subjective Interval history: Patient denies any pressure, palpitations, dizziness or shortness of breath. Patient does complain of atypical chest pain that increases with deep breathing. Physical Exam Vital signs: Vital Signs 09/21/17 12:00 09/21/17 16:00 09/21/17 20:00 Temperature 97.6 F 98.1 F 97.7 F Pulse Rate 52 L 52 L 53 L Respiratory Rate 17 19 17 Blood Pressure 140/75 148/82 H 140/81 Pulse Oximetry 100 100 100 09/22/17 00:00 09/22/17 04:00 09/22/17 08:00 Temperature 97.2 F L 97.8 F 98.5 F Pulse Rate 98 H 50 L 46 L Respiratory Rate 17 17 14 Blood Pressure 89/60 L 144/83 H 135/74 Pulse Oximetry 100 97 99 Intake & Output 09/21/17 09/22/17 09/22/17 18:59 06:59 18:59 Intake Total 800 / 800 987 / 987 1000 / 1000 Balance 800 / 800 987 / 987 1000 / 1000 Weight 40.5 kg Intake: IV 739 / 739 1000 / 1000 NS Inj 1,000 ML @ Wide Open IV. 1000 / 1000 SIG BOLUS ONE Rx#:[id number] Oral 800 / 800 248 / 248 Other: # Voids 4 3 Date of Last Bowel Movement 09/21/17 - Constitutional no acute distress - Routine HEENT Exam Head: Present: normocephalic Eye: Present: PERRL ENT: Present: mucous membranes moist - Routine Neck Exam Present: full ROM - Routine Respiratory Exam Present: CTA bilaterally - Routine Cardiovascular Exam Present: S1, S2. Absent: murmur, gallop, rubs - Routine Abdominal Exam Present: soft - Routine Extremities Exam Present: full ROM, pulses intact, normal capillary refill. Absent: clubbing, edema - Routine Neurological Exam Present: oriented X3 - Detailed Neurological Exam: Coma Scale Eye Opening: Spontaneous Verbal Response: Oriented Motor Response: Obey commands Daama Coma Scale Total: 15 - Routine Psychiatric Exam Present: normal affect Assessment and Plan - Assessment (1) Symptomatic bradycardia Code(s): R00.1 - Bradycardia, unspecified Status: Acute (2) Hyponatremia Code(s): E87.1 - Hypo-osmolality and hyponatremia Status: Acute (3) Anorexia nervosa with bulimia Code(s): F50.02 - Anorexia nervosa, binge eating/purging type Status: Acute (4) Acute kidney injury Code(s): N17.9 - Acute kidney failure, unspecified Status: Acute (5) Overdose on Tylenol Code(s): T39.1X1A - Poisoning by 4-Aminophenol derivatives, accidental ( unintentional), initial encounter Status: Acute (6) Bipolar depression Code(s): F31.30 - Bipolar disorder, current episode depressed, mild or moderate severity, unspecified Status: Acute - Plan Multiple health complications, unsure if symptoms are related to bradycardia. Orthostatics are positive. No indication for permanent pacemaker. Patient can be transferred out of the medical surgical unit. Recommend vigorous hydration. Will follow during hospitalization. This patient was seen and evaluated by Dr. Rosas who participated in care, management and decision-making. <Brett Rosas - Last Filed: 09/22/17 19:02> Physical Exam Vital signs: Vital Signs 09/21/17 20:00 09/22/17 00:00 09/22/17 04:00 Temperature 97.7 F 97.2 F L 97.8 F Pulse Rate 53 L 98 H 50 L Respiratory Rate 17 17 17 Blood Pressure 140/81 89/60 L 144/83 H Pulse Oximetry 100 100 97 09/22/17 08:00 09/22/17 12:00 Temperature 98.5 F 97.6 F Pulse Rate 46 L 63 Respiratory Rate 14 16 Blood Pressure 135/74 134/72 Pulse Oximetry 99 99 Intake & Output 09/21/17 09/22/17 09/22/17 18:59 06:59 18:59 Intake Total 800 / 800 987 / 987 1000 / 1000 Balance 800 / 800 987 / 987 1000 / 1000 Weight 89 lb 4.595 oz Intake: IV 739 / 739 1000 / 1000 NS Inj 1,000 ML @ Wide Open IV. 1000 / 1000 SIG BOLUS ONE Rx#:[id number] Oral 800 / 800 248 / 248 Other: # Voids 4 3 Date of Last Bowel Movement 09/21/17 Assessment and Plan - Assessment (1) Symptomatic bradycardia Code(s): R00.1 - Bradycardia, unspecified Status: Acute (2) Hyponatremia Code(s): E87.1 - Hypo-osmolality and hyponatremia Status: Acute (3) Anorexia nervosa with bulimia Code(s): F50.02 - Anorexia nervosa, binge eating/purging type Status: Acute (4) Acute kidney injury Code(s): N17.9 - Acute kidney failure, unspecified Status: Acute (5) Overdose on Tylenol Code(s): T39.1X1A - Poisoning by 4-Aminophenol derivatives, accidental ( unintentional), initial encounter Status: Acute (6) Bipolar depression Code(s): F31.30 - Bipolar disorder, current episode depressed, mild or moderate severity, unspecified Status: Acute - Attending Attestation Patient seen and examined. I reviewed and agree with the evaluation and plan as presented. Doubt bradycardia is related to her symptoms. No indication for permanent pacemaker placement. Orthostatics are positive. Continue hydration and nutrition. OK to transfer out of med/surg dept. <Stefany Andre - Last Filed: 09/22/17 11:56> (5) Overdose on Tylenol Qualifiers: Encounter type: initial encounter Injury intent: intentional self-harm Qualified Code(s): T39.1X2A - Poisoning by 4-Aminophenol derivatives, intentional self-harm, initial encounter <Brett Rosas - Last Filed: 09/22/17 19:02> (5) Overdose on Tylenol Qualifiers: Encounter type: initial encounter Injury intent: intentional self-harm Qualified Code(s): T39.1X2A - Poisoning by 4-Aminophenol derivatives, intentional self-harm, initial encounter
[2017-09-22 18:07] VITALS: BP 134/72; PULSE 63; RESP 16; TEMP 97.6
== END 2017-09-22 14:11 ==
LOC: NEPC 12:02 → NEDA 17:21 → N07 20:32
PROVIDERS: ADMIT Hospitalist; ATTEND Hospitalist

== ENCOUNTER 2017-09-22 14:59 | Inpatient (IN) ==
[2017-09-22] MEDS ORDERED: Aluminum/Magnesium/Simethacone Susp 30 ML UDC PO PRN (16:00)
[2017-09-22] MEDS ORDERED: Bisacodyl 10 MG Supp RECTAL PRN (16:00)
[2017-09-22] MEDS ORDERED: Haloperidol Inj 5 MG/ML Ampul IV.PUSH PRN (16:00)
[2017-09-22] MEDS: Gabapentin 300 MG Capsule PO SCH (17:36)
[2017-09-22] MEDS: Hydrocortisone Acetate 25 MG Supp RECTAL SCH (17:36)
[2017-09-22] MEDS: Ibuprofen 400 MG Tablet PO PRN (19:03)
[2017-09-22] MEDS: Senna/Docusate Sodium 8.6/50 MG Tablet PO SCH (20:46)
[2017-09-22] MEDS ORDERED: Hydrocortisone Acetate 25 MG Supp RECTAL SCH (21:00)
[2017-09-23] MEDS: Ibuprofen 400 MG Tablet PO PRN ×3 (00:23→22:13)
[2017-09-23] MEDS ORDERED: Melatonin 5 MG Tablet PO SCH (00:45)
[2017-09-23 07:17] LABS: Chol/HDL Ratio 2.16 Ratio; HDL Cholesterol 86.9 mg/dL (40.0-60.0)
[2017-09-23 07:18] LABS: Calcium 8.6 mg/dL (8.5-10.1); Carbon Dioxide 25.7 meq/L (21.0-32.0); Potassium 3.8 meq/L (3.5-5.1)
[2017-09-23] MEDS: LORazepam 1 MG Tablet PO PRN ×3 (07:31→22:14)
[2017-09-23] MEDS: Senna/Docusate Sodium 8.6/50 MG Tablet PO SCH ×2 (09:14→22:13)
[2017-09-23] MEDS: Gabapentin 300 MG Capsule PO SCH ×3 (09:14→17:42)
[2017-09-23] MEDS: Hydrocortisone Acetate 25 MG Supp RECTAL SCH ×2 (09:17→22:15)
[2017-09-23] MEDS: FLUoxetine 20 MG Capsule PO SCH (10:56)
--- NOTE | 2017-09-23 12:34 | P.DIET ---
Nutritional Evaluation Type of nutrition evaluation: initial Nutrition consult regarding: Diet Evaluation Nutrition screening: [facility] [place]: 09/23/17 [facility] [place] for Malnutrition, h/o anorexia/bulimia Subjective Subjective Comments: Pt visited during lunch today. Pt is known to this clinician from previous visit here. Pt request for Ensure original. Pt says the food here is not very good. Pt provided w/alternate menu choices that she can write-in on the menus as needed. LAKEISHA Manning reports pt says she purges once daily usually around dinner time. Pt currently does not have a sitter at bedside. Objective - Diagnosis Bipolar Disorder - Objective [place] body weight: 50 kg % IBW: 78 Body Weight Used for Calculations: Actual Energy Needs - Lower Range (kCal/kg): 35 Energy Needs - Upper Range (kCal/kg): 40 Lower Limit kCal/kg (kCals): 1,369 Upper Limit kCal/kg (kCals): 1,564 Lower Limit Protein Factor (Grams per Kg): 1.2 Upper Limit Protein Factor (Grams per Kg): 1.5 Lower Protein Needs (Protein): 47 Upper Protein Needs (Protein): 59 Fluid Factor (ml/kg): 35 Estimated Fluid Needs (ml): 1,369 Dietitian Reviewed in Medical Record: Current diet, Curent medications, Intake & Output, Labs, Medical history Diet Order: Regular Objective Comments: PMH reviewed. Pt has a h/o anorexia, bulimia, anxiety, depression COPD, gastric ulcer, gastroparesis, GERD, pancreatitis, pneumonia, alcohol abuse A1C pending Meds Include: prozac, haldol, neuronitin, atarax Assessment Assessment: Pt is at high nutrition risk r/t h/o anorexia, bulimia and alcohol abuse. Pt w/ 100% po for lunch today. Send Ensure TID(= 250 kcal and 9g protein per serving) . Pt okayed to have menu write-ins w/choices discussed w/pt. Monitor diet tolerance and po intake. Rec weekly wts. Dietitian following. Recommendations: 1. Send Ensure TID 2. Pt okayed to have menu write-ins w/choices discussed w/pt. 3. Monitor diet tolerance and po intake 4. Rec weekly wts. Dietitian following Dietitian to Monitor: Lab values, Electrolytes, Supplement acceptance, Intake & Output, Diet tolerance, Weight change, PO Intake, Medical course
--- NOTE | 2017-09-23 13:35 | P.CON ---
History of Present Illness Service: [facility] Consult date: 09/23/17 Requesting Physician: Warren Navas Reason for Consult: Overdose Primary Care Provider: UNKNOWN Chief Complaint: ETOH, Tylenol History of Present Illness: Patient is a 42-year-old female past medical history significant for alcohol abuse, depression and eating disorder who initially came in to the hospital following an overdose of Tylenol. She was treated with Mucomyst IV. She is now admitted to medical psychiatry and further evaluation. Consulted for assistance with medical management. Patient seen and examined today. Reports she is doing well. States that she thinks she needs to stop her alcohol use and sign up again for Alcoholics Anonymous to help her out. Denies any suicidal ideation, homicidal ideation. Denies pain and discomfort. Denies SOB/ dyspnea. Denies chest pain, palpitations, headaches, dizziness. Denies fevers, chills, n/v/d. Denies dysuria. Review of Systems All other systems reviewed negative except as stated in HPI [facility] - History History Provided By: Patient - Medical History Medical History: Medical History (Last Updated 09/18/17 @ 18:25 by Giovani Faust DO) Anorexia Anxiety Bulimia COPD (chronic obstructive pulmonary disease) GERD (gastroesophageal reflux disease) Gastric ulcer Major depression Pancreatitis Pneumonia - Surgical History Surgical History: Surgical History (Last Reviewed 09/18/17 @ 16:56 by TERESITA Sloan) No history of previous surgery - Family History Family History: Family History (Last Updated 09/18/17 @ 18:25 by Giovani Faust DO) Other Hypertension - Tobacco History Second Hand Smoke Exposure: Yes Smoking Status: Current every day smoker Tobacco Type: Cigarettes - Alcohol History How Often Do You Have a Drink Containing Alcohol: 4 or more times a week - Substance Use History Substance History: Active Abuse - Substance Use Type Alcohol Status: Active Route Used: By Mouth Reason for Use: Calm Down, Feels Good Comment: Patient reports a daily use of Acohol, and previous substance treatment that she states has never worked. Patient reports she is unwilling to participate with another inpatient program but she is willing to do outpatient. Medications and Allergies Active Medications: Active Medications Al Hydrox/Mg Hydrox/Simethicone (Mag-Al Plus Susp Liq) 30 ml PO Q6H PRN PRN Reason: DYSPEPSIA Al Hydroxide/Mg Hydroxide (Milk Of Magnesia Liq) 30 ml PO Q12H PRN PRN Reason: Mild Constipation Bisacodyl (Dulcolax Supp) 10 mg RECTAL DAILY PRN PRN Reason: SEVERE CONSITIPATION Fludrocortisone Acetate (Florinef) 0.1 mg PO DAILY [facility] Last Admin: 09/23/17 09:14 Dose: Not Given Flumazenil (Romazecon Inj) 0.2 mg IV.PUSH Q1M PRN PRN Reason: OVERSEDATION Fluoxetine HCl (Prozac) 20 mg PO DAILY [facility] Last Admin: 09/23/17 10:56 Dose: 20 mg Gabapentin (Neurontin) 300 mg PO TID [facility] Last Admin: 09/23/17 12:42 Dose: 300 mg Haloperidol Lactate (Haldol Inj) 1 mg IV.PUSH Q15M PRN PRN Reason: for severe agitation Hydrocortisone Acetate (Hemorrhoidal Hc Supp) 25 mg RECTAL BID [facility] Last Admin: 09/23/17 09:17 Dose: Not Given Hydroxyzine HCl (Atarax) 25 mg PO Q6H PRN PRN Reason: ANXIETY AND/OR AGITATION Last Admin: 09/23/17 12:42 Dose: 25 mg Ibuprofen (Motrin) 400 mg PO Q6H PRN PRN Reason: Temp >100.4, QUIROZ, Pain 1-10 Stop: 09/24/17 17:21 Last Admin: 09/23/17 07:30 Dose: 400 mg Lactulose (Lactulose Liq) 30 ml PO DAILY PRN PRN Reason: SEVERE CONSITIPATION Lorazepam (Ativan) 1 mg PO Q4H PRN PRN Reason: for CIWA 8-10 Last Admin: 09/23/17 07:31 Dose: 1 mg Lorazepam (Ativan) 2 mg PO Q2H PRN PRN Reason: for CIWA 11-14 Last Admin: 09/23/17 00:23 Dose: 2 mg Lorazepam (Ativan Inj) 2 mg IV.PUSH Q2H PRN PRN Reason: for CIWA 11-14 Last Admin: 09/22/17 16:26 Dose: 2 mg Lorazepam (Ativan Inj) 2 mg IV.PUSH Q1H PRN PRN Reason: for CIWA 15-20 Lorazepam (Ativan Inj) 2 mg IV.PUSH Q15M PRN PRN Reason: for CIWA > 20 Lorazepam (Ativan Inj) 1 mg IV.PUSH Q4H PRN PRN Reason: for CIWA 8-10 Lurasidone HCl (Latuda) 40 mg PO DAILY [facility] Last Admin: 09/23/17 10:56 Dose: 40 mg Nicotine (Habitrol 21 Mg Patch.24 Hr) 1 patch T-DERMAL DAILY [facility] Last Admin: 09/23/17 09:14 Dose: 1 patch Ondansetron HCl (Zofran Odt) 4 mg PO Q6H PRN PRN Reason: n/v Pantoprazole Sodium (Protonix) 40 mg PO BID [facility] Last Admin: 09/23/17 09:14 Dose: 40 mg Patch Removal (Remove Old Patch) 0 each T-DERMAL DAILY [facility] Last Admin: 09/23/17 09:17 Dose: 1 each Senna/Docusate Sodium (Lily-Colace) 1 tab PO BID [facility] Last Admin: 09/23/17 09:14 Dose: 1 tab Sennosides (Senokot) 17.2 mg PO Q12H PRN PRN Reason: Moderate Constipation Allergies Allergy/AdvReac Type Severity Reaction Status Date / Time lithium Allergy Severe Seizures Verified 08/17/17 14:10 *MDRO Multi-Drug Resistant AdvReac Unknown Cleared Uncoded 08/17/17 14:10 Organism 01/12/16 Home Medications Medication Instructions Recorded Confirmed Type gabapentin 300 mg PO TID 08/17/17 09/18/17 History Physical Exam Vital signs: Vital Signs 09/22/17 15:14 09/23/17 06:00 09/23/17 08:47 Temperature 97.5 F L 98.3 F Pulse Rate 52 L 53 L Respiratory Rate 16 16 4 L Blood Pressure 151/75 H 122/72 Pulse Oximetry 94 L Intake & Output 09/22/17 09/23/17 09/23/17 18:59 06:59 18:59 Intake Total 720 / 720 Balance 720 / 720 Weight 39.1 kg Intake: Oral 720 / 720 Narrative: GENERAL: This is a thin appearing, in no apparent distress. SKIN: Warm and dry. HEENT: Normocephalic. Pupils equal round and reactive. Nose without bleeding. Airway patent. NECK: Trachea midline. Supple. CARDIOVASCULAR: Regular rate and rhythm without murmurs, gallops, or rubs. RESPIRATORY: Clear to auscultation. Breath sounds equal bilaterally. No wheezes , rales, or rhonchi. GASTROINTESTINAL: Abdomen soft, non-tender, nondistended. Bowel Sounds normoactive x4. MUSCULOSKELETAL: Extremities without clubbing, cyanosis, or edema. NEUROLOGICAL: Awake and alert. Oriented to time, place, person. No focal neuro deficit. Moves all extremities. Normal speech. Assessment and Plan - Plan Patient is a 42-year-old female past medical history significant for alcohol abuse, depression and eating disorder who initially came in to the hospital following an overdose of Tylenol. She was treated with Mucomyst IV. She is now admitted to medical psychiatry and further evaluation. Consulted for assistance with medical management. Suicidal attempt Depression -Managed by psychiatry team Acetaminophen overdose -Received Mucomyst drip -Tylenol levels almost to normal 2.8 Alcohol abuse -Drinks significant amounts of vodka daily. -CIWA protocol -Multivit, Thiamine Bradycardia/ Orthostatic hypotension -EKG with sinus bradycardia. -TSH WNL. -Continue Florinef. -Liberalize salt intake in her diet. Follow up with her PCP. External hemorrhoid -Continue hemorrhoidal suppository COPD Nicotine dependence -Nicotine patch Chronic abdominal pain History of pancreatitis -Lipase/ LFTs normal. She received a PPI. Headache -Ibuprofen as needed. -Zofran as needed for nausea DVT prop ambulatory Code Status: Full code Discussed Condition With: Patient, nurse Discharge Planning: DC disposition by primary team
[2017-09-23 14:54] LABS: Hemoglobin A1c 5.7 % (4.3-6.0)
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
[2017-09-23] MEDS: Folic Acid 1 MG Tablet PO SCH (17:42)
[2017-09-23] MEDS: traZODone 100 MG Tablet PO PRN (22:36)
[2017-09-24] MEDS: LORazepam 1 MG Tablet PO PRN ×2 (07:17→12:48)
[2017-09-24] MEDS: Ibuprofen 400 MG Tablet PO PRN (07:17)
[2017-09-24] MEDS: Senna/Docusate Sodium 8.6/50 MG Tablet PO SCH ×2 (09:10→21:15)
[2017-09-24] MEDS: Gabapentin 300 MG Capsule PO SCH ×3 (09:10→18:16)
[2017-09-24] MEDS: FLUoxetine 20 MG Capsule PO SCH (09:10)
[2017-09-24] MEDS: Folic Acid 1 MG Tablet PO SCH (09:10)
[2017-09-24] MEDS: Hydrocortisone Acetate 25 MG Supp RECTAL SCH ×2 (09:11→21:14)
--- NOTE | 2017-09-24 11:18 | P.PN ---
Subjective Interval history: Follow-up visit Tylenol overdose, EtOH. Patient seen and examined today. Reports she is doing a lot better. Denies pain and discomfort. Denies SOB/ dyspnea. Denies chest pain, palpitations, headaches, dizziness. Denies fevers, chills, n/v/d. Denies hematuria, dysuria. Physical Exam Vital signs: Vital Signs 09/23/17 18:23 09/23/17 20:00 09/24/17 05:52 Temperature 97.8 F 97.8 F Pulse Rate 65 60 Respiratory Rate 16 16 18 Blood Pressure 137/77 114/57 L Pulse Oximetry 99 97 Intake & Output 09/23/17 09/24/17 09/24/17 18:59 06:59 18:59 Intake Total 1800 / 1800 600 / 600 Balance 1800 / 1800 600 / 600 Intake: Oral 1800 / 1800 600 / 600 Other: # Voids 1 Narrative: GENERAL: This is a thin appearing, in no apparent distress. SKIN: Warm and dry. HEENT: Normocephalic. Pupils equal round and reactive. Nose without bleeding. Airway patent. NECK: Trachea midline. Supple. CARDIOVASCULAR: Regular rate and rhythm without murmurs, gallops, or rubs. RESPIRATORY: Clear to auscultation. Breath sounds equal bilaterally. No wheezes , rales, or rhonchi. GASTROINTESTINAL: Abdomen soft, non-tender, nondistended. Bowel Sounds normoactive x4. MUSCULOSKELETAL: Extremities without clubbing, cyanosis, or edema. NEUROLOGICAL: Awake and alert. Oriented to time, place, person. No focal neuro deficit. Moves all extremities. Normal speech. Results - Labs CBC & Chem 7: 09/23/17 06:29 Laboratory Results - last 24 hr 09/23/17 06:29 Hemoglobin A1c 5.7 Assessment and Plan - Plan Patient is a 42-year-old female past medical history significant for alcohol abuse, depression and eating disorder who initially came in to the hospital following an overdose of Tylenol. She was treated with Mucomyst IV. She is now admitted to medical psychiatry and further evaluation. Consulted for assistance with medical management. Suicidal attempt Depression -Managed by psychiatry team Acetaminophen overdose -Received Mucomyst drip -Tylenol levels almost to normal 2.8 Alcohol abuse -Drinks significant amounts of vodka daily. -[facility] protocol -Multivit, Thiamine, Folic acid Bradycardia/ Orthostatic hypotension -EKG with sinus bradycardia. -TSH WNL. -Continue Florinef. -Liberalize salt intake in her diet. Follow up with her PCP. -Symptomatic bradycardia. Counseled with alcohol abuse that may contribute to her bradycardia, hyponatremia, orthostatic hypotension. Verbalized understanding External hemorrhoid -Continue hemorrhoidal suppository COPD Nicotine dependence -Nicotine patch Chronic abdominal pain History of pancreatitis -Lipase/ LFTs normal. She received a PPI. Headache -Ibuprofen as needed. -Zofran as needed for nausea DVT prop ambulatory Code Status: Full code Discussed Condition With: Patient, nursing Discharge Planning: DC disposition by primary team
--- NOTE | 2017-09-24 14:47 | P.PNPSY ---
Subjective Remarks: Pt seen and discussed with staff. Chart reviewed. She was admitted secondary to intentional overdose with tylenol and alcohol. She has been compliant with medications and care. CIWA scores range between 8-10 and she has received several doses of oral lorazepam. She denies SI/HI today. She reports that depression persists but is lessening. She is cooperative with care. Mental Status Examination Appearance: Appropriate Consciousness: Alert Orientation: x4 Motor Activity: Normal gait Speech: Unremarkable Language: Adequate Fund of Knowledge: Inadequate Attention and Concentration: Adequate Memory: Impaired (Surrounding events of the admission) Mood: Sad Affect: Sad Thought Process & Associations: Intact, Goal directed, Linear Thought Content: Appropriate Hallucination Type: None Delusion Type: None Suicidal Ideation: No Suicidal Plan: No Suicidal Intention: No Homicidal Ideation: No Homicidal Plan: No Homicidal Intention: No Insight: Fair Judgment: Impulsive Assessment and Plan - Assessment (1) Bipolar depression Code(s): F31.30 - Bipolar disorder, current episode depressed, mild or moderate severity, unspecified Status: Acute - Plan Plan: Continue current tx plan Justification for Continued Inpatient Stay: monitoring for safety
[2017-09-24] MEDS: traZODone 100 MG Tablet PO PRN (21:15)
[2017-09-25] MEDS: LORazepam 1 MG Tablet PO PRN (05:27)
[2017-09-25] MEDS: Senna/Docusate Sodium 8.6/50 MG Tablet PO SCH ×2 (09:21→20:43)
[2017-09-25] MEDS: FLUoxetine 20 MG Capsule PO SCH (09:21)
[2017-09-25] MEDS: Gabapentin 300 MG Capsule PO SCH ×3 (09:21→17:42)
[2017-09-25] MEDS: Folic Acid 1 MG Tablet PO SCH (09:21)
[2017-09-25] MEDS: Hydrocortisone Acetate 25 MG Supp RECTAL SCH ×2 (09:22→20:43)
--- NOTE | 2017-09-25 11:01 | P.PN ---
Subjective Interval history: Follow-up visit Tylenol overdose, EtOH. Patient seen and examined today. Reports she is doing well. Reports hemorrhoids, external and wanting cream instead of suppository. States she ambulated yesterday, went for fresh air downstairs. Denies SOB/ dyspnea. Denies chest pain, palpitations, headaches, dizziness. Denies fevers, chills, n/v/d. Denies hematuria, dysuria. Physical Exam Vital signs: Vital Signs 09/24/17 18:20 09/25/17 05:50 Temperature 96.7 F L 98.5 F Pulse Rate 73 66 Respiratory Rate 16 18 Blood Pressure 87/55 L 114/65 Pulse Oximetry 93 L 95 Intake & Output 09/24/17 09/25/17 09/25/17 18:59 06:59 18:59 Intake Total 340 / 340 Balance 340 / 340 Intake: Oral 240 / 240 Oral Supplement 100 / 100 Other: # Voids 1 Narrative: GENERAL: This is a thin appearing, in no apparent distress. SKIN: Warm and dry. HEENT: Normocephalic. Pupils equal round and reactive. Nose without bleeding. Airway patent. NECK: Trachea midline. Supple. CARDIOVASCULAR: Regular rate and rhythm without murmurs, gallops, or rubs. RESPIRATORY: Clear to auscultation. Breath sounds equal bilaterally. No wheezes , rales, or rhonchi. GASTROINTESTINAL: Abdomen soft, non-tender, nondistended. Bowel Sounds normoactive x4. MUSCULOSKELETAL: Extremities without clubbing, cyanosis, or edema. NEUROLOGICAL: Awake and alert. Oriented to time, place, person. No focal neuro deficit. Moves all extremities. Normal speech. Results - Labs CBC & Chem 7: 09/23/17 06:29 Assessment and Plan - Plan Patient is a 42-year-old female past medical history significant for alcohol abuse, depression and eating disorder who initially came in to the hospital following an overdose of Tylenol. She was treated with Mucomyst IV. She is now admitted to medical psychiatry and further evaluation. Consulted for assistance with medical management. Suicidal attempt Depression -Managed by psychiatry team Acetaminophen overdose -Received Mucomyst drip -Tylenol levels almost to normal 2.8 Alcohol abuse -Drinks significant amounts of vodka daily. -[facility] protocol -Multivit, Thiamine, Folic acid Bradycardia/ Orthostatic hypotension -EKG with sinus bradycardia. -TSH WNL. -Continue Florinef. -Liberalize salt intake in her diet. Follow up with her PCP. -Counseled with alcohol abuse that may contribute to her bradycardia, hyponatremia, orthostatic hypotension. Verbalized understanding -Improved. Asymptomatic. External hemorrhoid -Continue hemorrhoidal suppository -Hemorrhoid cream COPD Nicotine dependence -Nicotine patch Chronic abdominal pain History of pancreatitis -Lipase/ LFTs normal. PPI. Headache -Ibuprofen as needed. -Zofran as needed for nausea DVT prop ambulatory Stable from Hospitalist standpoint. We will sign off. Reconsult as needed. Code Status: Full code Discussed Condition With: Patient, nursing Discharge Planning: DC disposition by primary team
--- NOTE | 2017-09-25 15:47 | P.PNPSY ---
Subjective Remarks: Pt seen and discussed with staff. She is polite and cooperative with care. She has been compliant with medications and denies side effects. CIWA has been negative. She took attarax for anxiety x1 today. She reports depression is improved today and denies SI/HI Mental Status Examination Appearance: Appropriate Consciousness: Alert Orientation: x4 Motor Activity: Normal gait Speech: Unremarkable Language: Adequate Fund of Knowledge: Inadequate Attention and Concentration: Adequate Memory: Impaired (Surrounding events of the admission) Mood: Sad Affect: Sad Thought Process & Associations: Intact, Goal directed, Linear Thought Content: Appropriate Hallucination Type: None Delusion Type: None Suicidal Ideation: No Suicidal Plan: No Suicidal Intention: No Homicidal Ideation: No Homicidal Plan: No Homicidal Intention: No Insight: Fair Judgment: Impulsive Assessment and Plan - Assessment (1) Bipolar depression Code(s): F31.30 - Bipolar disorder, current episode depressed, mild or moderate severity, unspecified Status: Acute - Plan Plan: Continue current tx plan Justification for Continued Inpatient Stay: monitoring for safety
[2017-09-25] MEDS: traZODone 100 MG Tablet PO PRN (21:03)
[2017-09-26] MEDS: FLUoxetine 20 MG Capsule PO SCH (09:41)
[2017-09-26] MEDS: Senna/Docusate Sodium 8.6/50 MG Tablet PO SCH ×2 (09:41→21:45)
[2017-09-26] MEDS: Gabapentin 300 MG Capsule PO SCH ×3 (09:42→18:23)
[2017-09-26] MEDS: Hydrocortisone Acetate 25 MG Supp RECTAL SCH ×2 (09:45→21:45)
[2017-09-26] MEDS: Folic Acid 1 MG Tablet PO SCH (09:45)
[2017-09-26] MEDS: Ibuprofen 400 MG Tablet PO PRN (15:11)
--- NOTE | 2017-09-26 16:44 | P.PNPSY ---
Subjective Remarks: Patient seen for follow up; chart reviewed. Discussion with nursing staff reported that patient slept, pleasant, ate 1/2 breakfast, most of her lunch. Patient moved to unit 2600, found ambulating on the unit, calm and cooperative. Patient was found lying on hospital bed, calm and cooperative. Patient states that she has been feeling less depressed, continues to state that she had not attempted to end her life but wanted "get away and sleep". She states that since admission she has been feeling much better and realizes that the alcohol use was interfering with her recovery and mood. She mentions having been in contact with her parents and daughter and being visited by her boyfriend who believes she is doing better. She continues to deny any suicidal ideations, tolerating medications well. Review of Systems All other systems reviewed negative except as stated in HPI Mental Status Examination Appearance: Appropriate Consciousness: Alert Orientation: x4 Motor Activity: Normal gait Speech: Unremarkable Language: Adequate Fund of Knowledge: Inadequate Attention and Concentration: Adequate Memory: Impaired (Surrounding events of the admission) Mood: Appropriate Affect: Appropriate Thought Process & Associations: Intact, Goal directed, Linear Thought Content: Appropriate Hallucination Type: None Delusion Type: None Suicidal Ideation: No Suicidal Plan: No Suicidal Intention: No Homicidal Ideation: No Homicidal Plan: No Homicidal Intention: No Insight: Fair Judgment: Impulsive Assessment and Plan - Assessment (1) Bipolar depression Code(s): F31.30 - Bipolar disorder, current episode depressed, mild or moderate severity, unspecified Status: Acute - Plan Plan: Patient noted with improved mood, no suicidal ideations, reports feeling less depressed. CIWA scores have been low. Continue current treatment, continue to monitor mood and behavior. Discharge planning in progress. Justification for Continued Inpatient Stay: At risk for further decompensation at lower level of care.
[2017-09-26 17:03] VITALS: RESP 16
[2017-09-26] MEDS: traZODone 100 MG Tablet PO PRN (21:38)
[2017-09-27 05:45] VITALS: BP 138/69; PULSE 98; TEMP 98.5; O2SAT 98
[2017-09-27] MEDS: Ibuprofen 400 MG Tablet PO PRN (09:45)
[2017-09-27] MEDS: Senna/Docusate Sodium 8.6/50 MG Tablet PO SCH (09:45)
[2017-09-27] MEDS: Folic Acid 1 MG Tablet PO SCH (09:46)
[2017-09-27] MEDS: Gabapentin 300 MG Capsule PO SCH (09:46)
[2017-09-27] MEDS: FLUoxetine 20 MG Capsule PO SCH (09:46)
[2017-09-27] MEDS: Hydrocortisone Acetate 25 MG Supp RECTAL SCH (09:47)
--- NOTE | 2017-09-27 14:49 | P.DSPSY ---
Psychiatry Discharge Summary Inpatient Psychiatric care?: Yes Advance Directives: No Mental Health Advance Directive: No Health Care Proxy: No - Admission Admission Date: September 22, 2017 14:59 - Admission Diagnosis (1) Bipolar depression Code(s): F31.30 - Bipolar disorder, current episode depressed, mild or moderate severity, unspecified Brief History: Patient is a 41-year-old woman, domiciled with fifidencio, unemployed, with past psychiatric history of bipolar disorder, anorexia, anxiety disorder, depressive disorder, PTSD, multiple psychiatric hospitalizations (last a year ago here at [place] 2017), history of self-injurious behavior via cutting (last being in her 20s), 4 previous suicide attempts via overdose, was admitted under the medical service for stabilization after recent suicide attempt via overdose with Tylenol in the context of alcohol intoxication and presumed suicide attempt which she was transferred to the inpatient psychiatry unit for further evaluation and management. Initial consult note as per Dr. Leos evaluation: The patient is a 42-year- old woman, domiciled with her fianc in [facility], mother of a 14 years old daughter which is in the custody of her parents, unemployed, with a psychiatric history of bipolar disorder, alcohol use disorder, eating disorder, borderline personality disorder, anxiety, previous psychiatric hospitalizations , last hospitalization here at [facility] in 2017 under the care of Dr. Navas, documentation reviewed, suicide attempts, history of self cutting behavior without SI, established outpatient care in [facility], she is on trazodone 100 mg, Prozac 20 mg, Latuda 20 mg, prescribed by nurse practitioners, medical history of COPD, who is presenting to the hospital following an overdose of Tylenol with suicidal intention. initially in ER patient states that she has a history of depression. She has been drinking on a daily basis chronically. She states that she generally drinks 5-6 vodka minis daily. She said that she has been feeling rather depressed and this morning she took about 4 shots of vodka and decided that she did not want to feel this way anymore. She stated that she was not actively suicidal but she did want to make things go away by taking a lot of pills. She took about 20 Tylenol pills around 10 AM and called her fianc afterwards because she did want to get help. She states that she wants to quit drinking alcohol. She says she has been following with [facility] for psychiatric medications. EMR was reviewed. The patient was seen for psychiatric evaluation in the medical floor. On the evaluation the patient was calm, cooperative and pleasant. The patient reports that she overdosed with Tylenol while she was intoxicated with alcohol, no necessary to commit suicide, but to "disappear for some minutes and forget my problem". The patient reports that she has been diagnosed with bipolar disorder, she has been taking her medications prescribed by [facility], but at the same time she has been persistently taking alcohol every day. She has just completed a detox/rehab about 3 weeks ago in [facility], but she immediately relapsed in alcohol. She takes anywhere from 5-6 drinks per day. She reports that she has history of alcohol withdrawal and DTs. She reports that the reason she is drinking is to fight her depression and anxiety, she reports that in the last year she has been feeling increasingly hopeless, helpless, worthless in the context of lack of capacity to work, separation from her daughter. At this moment the patient denies suicidal enemas ideation, she denies visual and auditory hallucinations, she is logical, coherent and relevant, which she expressed understanding of the need of a psychiatric admission for stabilization of her depression. The patient was able to contract for safety in the hospital. No loosening of associations, no ideas of reference, no paranoia, no agitation, no fluctuation of consciousness were elicited during this evaluation. The patient denies the use illegal drugs. Discussion nursing staff reported patient's CIWA scores are elevated, is noted to be eating meals compliant with medication. Patient was found sitting in hospital bed noted B, cooperative. Patient stated that she is feeling "okay" stating that she had been drinking a lot daily about 5-6 "mini vodkas". Patient reports having recently detoxed at [facility] in August relapse days after her discharge. Patient reports mood as being "low" denying any suicide ideations stating that she did feeling really depressed but denies recent overdose as a suicide attempt stating that she just really wanted to sleep. Patient reports current stressors include family situation referring to her daughter living with her parents, work situation states she has that enjoying what she does for living and her current drinking. Patient reports feeling guilty due to her alcohol use and how that has affected her relation with her daughter as she does not have custody of her daughter because of this. Patient reports sleeping well recently with decrease appetite, and does report having purging once per day usually during dinnertime, denies use of any other supplements, denies any binge eating. Patient states last time was 3 days ago. Patient also reports decreased energy concentration as well as pleasure and hobbies. Patient states her mood recently has been "as good as it can be" denying any suicide ideation denying any perceptional services or delusions. Patient continues to deny any suicide ideations. Patient recalls the overdose of having drank alcohol the day and wanted to "checkout" and states that she wanted to go to sleep for 10 hours denying wanting to end her life. Patient agrees to reconsider re-engaging in rehabilitation program but is unsure at this time. Patient will resume medications when she agrees to a consents for. Family psychiatric history: Mother with depression, Aunt with bipolar disorder, no suicides in the family. Past Psychiatric History: psychiatric history of bipolar disorder, alcohol use disorder, eating disorder, borderline personality disorder, anxiety, previous psychiatric hospitalizations, last hospitalization here at [facility] in 2017 under my care, four prior suicide attempts, history of self cutting behavior without SI, established outpatient care in [facility], she is on trazodone 100 mg, Prozac 20 mg, Latuda 20 mg Past Medical History: COPD, history of DTs Substance History: Patient denies the use of illegal drug; She takes 5-6 drinks per day, she was recently discharged from [facility] detox/rehab as stated above. 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 Tobacco Use In Past 30 Days: No How Often Do You Have a Drink Containing Alcohol: 4 or more times a week Hospital Course: Patient is a 41-year-old woman, domiciled with dane, unemployed, with past psychiatric history of bipolar disorder, anorexia, anxiety disorder, depressive disorder, PTSD, multiple psychiatric hospitalizations (last a year ago here at [place] 2017), history of self-injurious behavior via cutting (last being in her 20s), 4 previous suicide attempts via overdose, was admitted under the medical service for stabilization after recent suicide attempt via overdose with Tylenol in the context of alcohol intoxication and presumed suicide attempt which she was transferred to the inpatient psychiatry unit for further evaluation and management. Patient was resumed on lurasidone, fluoxetine, and kept on [facility] protocol for alcohol withdrawal which she tolerated medications well with no adverse drug reactions, noted to have been depressed but was able to engage in treatment and participate in groups and activities with progressive improvement in mood. Patient continued to deny any suicidal or homicidal ideation nor any perceptual disturbances. She responded well to treatment, was noted to be cooperative with staff, had good behavioral control with no evidence of any verbal or physical aggressive behavior toward others and was noted to have stable mood with treatment. Upon discharge patient reported feeling good denied any perceptual disturbances nor suicidal ideations or homicidal ideations. Patient agreed to continue treatment and follow up appointments for continuity of care. Patient will be discharged back to her home with plan to continue recommendations on an outpatient setting. Counseling on abstinence from alcohol use was reviewed which she acknowledged and agreed to engage in AA meetings. Treatment plan was explained to patient which she acknowledged. . Supportive psychotherapy provided. Suicide and violence risk assessment on day of discharge both suggest lower imminent risk, and the patient's level of function is adequate for planned level of outpatient care. Patient has maximized benefit from this inpatient psychiatric hospital stay and to return to psychiatric emergency room for any concerning psychiatric symptoms. Patient agrees with plan. - Discharge Discharge Date: 09/27/17 - Discharge Diagnosis (1) Bipolar depression Code(s): F31.30 - Bipolar disorder, current episode depressed, mild or moderate severity, unspecified Status: Acute Discharge Disposition: Home - Discharge Instructions Discharge Diet: Heart Healthy Diet Activities You Can Perform: Regular- No Restrictions - Discharge Time > 30 minutes Mental Status Examination Appearance: Appropriate Consciousness: Alert Orientation: x4 Motor Activity: Normal gait Speech: Unremarkable Language: Adequate Fund of Knowledge: Inadequate Attention and Concentration: Adequate Memory: Impaired (Surrounding events of the admission) Mood: Appropriate Affect: Appropriate Thought Process & Associations: Intact, Goal directed, Linear Thought Content: Appropriate Hallucination Type: None Delusion Type: None Suicidal Ideation: No Suicidal Plan: No Suicidal Intention: No Homicidal Ideation: No Homicidal Plan: No Homicidal Intention: No Insight: Fair Judgment: Impulsive Discharge/Advance Care Plan - Results Vital Signs: Last Vital Signs Temp 98.5 F 09/27/17 05:44 Pulse 98 H 09/27/17 05:44 Resp 16 09/27/17 05:44 BP 138/69 09/27/17 05:44 Pulse Ox 98 09/27/17 05:44 Lab Results: Laboratory Results Hemoglobin A1c 5.7 % (4.3-6.0) 09/23/17 06:29 Triglycerides 82 mg/dL (42-150) 09/23/17 06:29 Cholesterol 188 mg/dL (120-200) 09/23/17 06:29 LDL Cholesterol, Calc 85 mg/dL (0-99) 09/23/17 06:29 HDL Cholesterol 86.9 mg/dL (40.0-60.0) H 09/23/17 06:29 Summary of Procedures: none Pending Results: None - Medications Number of antipsychotic medications at discharge: 1 - Discharge Care Plan Goals to Promote Your Health: * To prevent worsening of your condition and complications * To maintain your health at the optimal level Directions to Meet Your Goals: Take your medications as prescribed Follow your dietary instruction Follow activity as directed Keep your appointments as scheduled Take your immunizations and boosters as scheduled If your symptoms worsen call your PCP, if no PCP go to Urgent Care Center or Emergency Room For 30/08 questions related to your inpatient stay or results of tests pending at discharge, please contact Dr. Warren Navas MD at Smoking is Dangerous to Your Health. Avoid second hand smoking
== END 2017-09-27 12:08 | disposition home or self-care (01) ==
LOC: H4EA 14:59 → H260 09-26 12:46
PROVIDERS: ADMIT Student in an Organized Health Care Education/Training Program; ATTEND Student in an Organized Health Care Education/Training Program

== ENCOUNTER 2017-11-02 18:39 | Inpatient (IN) ==
[2017-11-02] MEDS ORDERED: Sod Chloride 0.9% Inj 1,000 ML IV.SIG ONE ×2 (19:40→20:32)
--- NOTE | 2017-11-02 19:54 | ED ---
HPI General Chief Complaint: Overdose Stated Complaint: poss od Time Seen by Provider: 11/02/17 19:35 Source: patient, family, RN notes reviewed and old records reviewed Mode of arrival: ambulatory Limitations: no limitations History of Present Illness HPI Narrative: 42-year-old female presents to the emergency department voluntarily for Tylenol overdose. Her friend brought her to the emergency department. She states that 2 hours ago, she took 2500 mg of Tylenol and 1 Percocet. Patient states she did this because she was depressed and wanted to kill herself. Patient also states she has been drinking alcohol. Patient reports history of suicide attempts in the past, last time being in a couple months ago. She states she also suffers from anorexia. She denies . Moderate severity. MD complaint: intentional overdose Onset (ago): hour(s) (2) Timing confirmed by: other Intent: suicide attempt Associated symptoms: depression Treatments Prior to Arrival: none Related Data Home Medications Medication Instructions Recorded Confirmed fluoxetine 40 mg PO DAILY 10/06/17 11/02/17 gabapentin 300 mg PO TID 11/02/17 11/02/17 omeprazole magnesium [Prilosec] 40 mg PO BID 11/02/17 11/02/17 trazodone 250 mg PO DAILY 11/02/17 11/02/17 Previous Rx's Medication Instructions Recorded chlordiazepoxide HCl 25 mg PO Q8H PRN #20 cap 10/06/17 Allergies Allergy/AdvReac Type Severity Reaction Status Date / Time lithium Allergy Severe Seizures Verified 11/02/17 18:56 Review of Systems ROS: all other systems reviewed are negative [facility] Social History Social History Substance History: Active Abuse Second Hand Smoke Exposure: Yes Smoking Status: Current every day smoker Tobacco Type: Cigarettes How Often Do You Have a Drink Containing Alcohol: 4 or more times a week Recent Travel in [facility] within the Last 8 Weeks: No Recent Out of Country Travel within the Last 8 Weeks: No Substance Abuse Detail Alcohol: Substance Use Status: Active Route Used Substance Abuse: By Mouth Reason for Use: Calm Down and Feels Good Immunization History Tetanus Immunization: <5 Years Hx Influenza Vaccine This Season: No Exam Narrative Exam Narrative: GENERAL: Thin female patient, afebrile. SKIN: Focused skin assessment warm/dry. HEAD: Normocephalic. Atraumatic. EYES: No scleral icterus. No injection or drainage. NECK: Supple, trachea midline. No JVD or lymphadenopathy. CARDIOVASCULAR: Regular rate and rhythm without murmurs, gallops, or rubs. RESPIRATORY: Breath sounds equal bilaterally. No accessory muscle use. Lung sounds are clear to auscultation. GASTROINTESTINAL: Abdomen soft, non-tender, nondistended. MUSCULOSKELETAL: No cyanosis, or edema. BACK: Nontender without obvious deformity. No CVA tenderness. Course Initial Documented Vital Signs Temperature 98.1 F 11/02/17 18:41 Pulse Rate 92 H 11/02/17 18:41 Respiratory Rate 18 11/02/17 18:41 Blood Pressure 99/56 L 11/02/17 18:41 Pulse Oximetry 99 11/02/17 18:41 Last Documented Vital Signs Temperature 97.4 F L 11/03/17 03:00 Pulse Rate 81 11/03/17 06:00 Respiratory Rate 25 H 11/03/17 06:00 Blood Pressure 113/78 11/03/17 02:30 Pulse Oximetry 100 11/03/17 09:36 Medical Decision Making MDM Narrative Medical decision making narrative: 42-year-old female presents to the emergency department after intentional overdose of Tylenol 2 hours ago. EKG, CBC, CMP, salicylate level, Tylenol level, alcohol level, urine drug screen are ordered and pending. Poison control is notified. Poison control requested Tylenol to be repeated at 2200. EKG shows sinus rhythm, heart rate 80, no acute ST changes. CBC shows no acute abnormalities. CMP shows hyponatremia 131 no acute abnormality. Salicylate level is less than 1.7. Acetaminophen level is 90.9. Alcohol level is 188. UPT is negative. UDS is positive for benzodiazepines. Tylenol at 2200 is 277.3. I spoke with poison control who recommends treatment with IV acetadote. Protocol is ordered. Medical Screen Exam Complete: Yes Emergency Medical Condition: Yes Differential Diagnosis Differential Diagnosis: Acetaminophen overdose versus intentional overdose or suicide attempt versus depression Medical Records Medical records reviewed: Yes I reviewed the patient's medical records. Lab Data Result diagrams: 11/02/17 19:40 11/03/17 07:40 POC Results POC Urine Results Negative Lab Results 11/02/17 11/02/17 11/02/17 Range/Units 19:40 19:40 19:40 WBC 8.7 (4.0-11.0) th/mm3 RBC 3.57 L (4.00-5.30) mil/mm3 Hgb 11.2 L (11.6-15.3) gm/dL Hct 32.9 L (35.0-46.0) % MCV 92.2 (80.0-100.0) fL MCH 31.2 (27.0-34.0) pg MCHC 33.9 (32.0-36.0) % RDW 16.0 (11.6-17.2) % Plt Count 287 D (150-450) th/mm3 MPV 7.3 (7.0-11.0) fL Neut % (Auto) 55.6 (16.0-70.0) % Lymph % (Auto) 31.7 (9.0-44.0) % [place] % (Auto) 5.4 (0.0-8.0) % Eos % (Auto) 6.3 H (0.0-4.0) % Baso % (Auto) 1.0 (0.0-2.0) % Neut # (Auto) 4.8 (1.8-7.7) th/mm3 Lymph # (Auto) 2.8 (1.0-4.8) th/mm3 [place] # (Auto) 0.5 (0.0-0.9) th/mm3 Eos # (Auto) 0.5 H (0.0-0.4) th/mm3 Baso # (Auto) 0.1 (0.0-0.2) th/mm3 WBC Differential . Differential Comment Auto diff final PT 10.6 (9.8-11.6) sec INR 1.0 Ratio APTT (24.3-30.1) sec Sodium 131 L (136-145) meq/L Potassium 3.6 (3.5-5.1) meq/L Chloride 95 L (98-107) meq/L Carbon Dioxide 28.4 (21.0-32.0) meq/L Anion Gap 8 (5-15) meq/L BUN 2 L (7-18) mg/dL Creatinine 0.84 (0.50-1.00) mg/dL Estimated GFR 74 L (>89) mL/min POC Glucose (68-110) mg/dl Random Glucose 80 (74-106) mg/dL Calcium 7.8 L (8.5-10.1) mg/dL Prot Corrected Calcium (8.5-10.1) mg/dL Total Bilirubin 0.2 (0.2-1.0) mg/dL GGT (5-55) U/L AST 20 (15-37) U/L ALT 15 (10-53) U/L Alkaline Phosphatase 77 (45-117) U/L Total Protein 6.5 (6.4-8.2) g/dL Albumin 3.2 L (3.4-5.0) g/dL Urine Color (Yellw/Straw) Urine Clarity (Clear) Urine pH (5.0-8.5) Ur Specific [place] (1.002-1.035) Urine Protein (Neg-Trace) mg/dL Urine Glucose (UA) (Negative) mg/dL Urine Ketones (Negative) mg/dL Urine Occult Blood (Negative) Urine Nitrate (Negative) Urine Bilirubin (Negative) Urine Urobilinogen (Less than 2) mg/dL Ur Leukocyte Esterase (Negative) Urine WBC (0-5) /hpf Ur Squamous Epith Cells (0-5) /hpf Urine Bacteria (None) /hpf Micro UA Comment Ur Microscopic Review Urine Culture Comments Nasal Screen MRSA (PCR) (Negative) Salicylates (2.8-20.0) mg/dL Urine Opiates Screen (Neg) Acetaminophen 90.9 H (10.0-30.0) mcg/mL Ur Barbiturates Screen (Neg) Ur Amphetamines Screen (Neg) U Benzodiazepines Scrn (Neg) Urine Cocaine Screen (Neg) U Cannabinoids Screen (Neg) Serum Alcohol 188 H (0-5) mg/dL Hepatitis A IgM Ab (Nonreactive) Hep Bs Antigen (Nonreactive) Hep B Core IgM Ab (Nonreactive) Hep C IgG Ab (Nonreactive) 11/02/17 11/02/17 11/02/17 Range/Units 19:40 19:40 19:40 WBC (4.0-11.0) th/mm3 RBC (4.00-5.30) mil/mm3 Hgb (11.6-15.3) gm/dL Hct (35.0-46.0) % MCV (80.0-100.0) fL MCH (27.0-34.0) pg MCHC (32.0-36.0) % RDW (11.6-17.2) % Plt Count (150-450) th/mm3 MPV (7.0-11.0) fL Neut % (Auto) (16.0-70.0) % Lymph % (Auto) (9.0-44.0) % [place] % (Auto) (0.0-8.0) % Eos % (Auto) (0.0-4.0) % Baso % (Auto) (0.0-2.0) % Neut # (Auto) (1.8-7.7) th/mm3 Lymph # (Auto) (1.0-4.8) th/mm3 [place] # (Auto) (0.0-0.9) th/mm3 Eos # (Auto) (0.0-0.4) th/mm3 Baso # (Auto) (0.0-0.2) th/mm3 WBC Differential Differential Comment PT (9.8-11.6) sec INR Ratio APTT (24.3-30.1) sec Sodium (136-145) meq/L Potassium (3.5-5.1) meq/L Chloride (98-107) meq/L Carbon Dioxide (21.0-32.0) meq/L Anion Gap (5-15) meq/L BUN (7-18) mg/dL Creatinine (0.50-1.00) mg/dL Estimated GFR (>89) mL/min POC Glucose (68-110) mg/dl Random Glucose (74-106) mg/dL Calcium (8.5-10.1) mg/dL Prot Corrected Calcium (8.5-10.1) mg/dL Total Bilirubin (0.2-1.0) mg/dL GGT (5-55) U/L AST (15-37) U/L ALT (10-53) U/L Alkaline Phosphatase (45-117) U/L Total Protein (6.4-8.2) g/dL Albumin (3.4-5.0) g/dL Urine Color Yellow (Yellw/Straw) Urine Clarity Clear (Clear) Urine pH 7.0 (5.0-8.5) Ur Specific [place] 1.006 (1.002-1.035) Urine Protein Negative (Neg-Trace) mg/dL Urine Glucose (UA) Negative (Negative) mg/dL Urine Ketones Negative (Negative) mg/dL Urine Occult Blood Negative (Negative) Urine Nitrate Negative (Negative) Urine Bilirubin Negative (Negative) Urine Urobilinogen Less than 2 (Less than 2) mg/dL Ur Leukocyte Esterase Negative (Negative) Urine WBC 1 (0-5) /hpf Ur Squamous Epith Cells 1 (0-5) /hpf Urine Bacteria Rare H (None) /hpf Micro UA Comment Culture not ind Ur Microscopic Review Not Reportable Urine Culture Comments Culture not ind Nasal Screen MRSA (PCR) (Negative) Salicylates Less than 1.7 L (2.8-20.0) mg/dL Urine Opiates Screen Neg (Neg) Acetaminophen (10.0-30.0) mcg/mL Ur Barbiturates Screen Neg (Neg) Ur Amphetamines Screen Neg (Neg) U Benzodiazepines Scrn Pos H (Neg) Urine Cocaine Screen Neg (Neg) U Cannabinoids Screen Neg (Neg) Serum Alcohol (0-5) mg/dL Hepatitis A IgM Ab (Nonreactive) Hep Bs Antigen (Nonreactive) Hep B Core IgM Ab (Nonreactive) Hep C IgG Ab (Nonreactive) 11/02/17 11/03/17 11/03/17 Range/Units 21:59 01:10 02:25 WBC (4.0-11.0) th/mm3 RBC (4.00-5.30) mil/mm3 Hgb (11.6-15.3) gm/dL Hct (35.0-46.0) % MCV (80.0-100.0) fL MCH (27.0-34.0) pg MCHC (32.0-36.0) % RDW (11.6-17.2) % Plt Count (150-450) th/mm3 MPV (7.0-11.0) fL Neut % (Auto) (16.0-70.0) % Lymph % (Auto) (9.0-44.0) % [place] % (Auto) (0.0-8.0) % Eos % (Auto) (0.0-4.0) % Baso % (Auto) (0.0-2.0) % Neut # (Auto) (1.8-7.7) th/mm3 Lymph # (Auto) (1.0-4.8) th/mm3 [place] # (Auto) (0.0-0.9) th/mm3 Eos # (Auto) (0.0-0.4) th/mm3 Baso # (Auto) (0.0-0.2) th/mm3 WBC Differential Differential Comment PT (9.8-11.6) sec INR Ratio APTT (24.3-30.1) sec Sodium (136-145) meq/L Potassium (3.5-5.1) meq/L Chloride (98-107) meq/L Carbon Dioxide (21.0-32.0) meq/L Anion Gap (5-15) meq/L BUN (7-18) mg/dL Creatinine (0.50-1.00) mg/dL Estimated GFR (>89) mL/min POC Glucose (68-110) mg/dl Random Glucose (74-106) mg/dL Calcium (8.5-10.1) mg/dL Prot Corrected Calcium (8.5-10.1) mg/dL Total Bilirubin (0.2-1.0) mg/dL GGT (5-55) U/L AST (15-37) U/L ALT (10-53) U/L Alkaline Phosphatase (45-117) U/L Total Protein (6.4-8.2) g/dL Albumin (3.4-5.0) g/dL Urine Color (Yellw/Straw) Urine Clarity (Clear) Urine pH (5.0-8.5) Ur Specific [place] (1.002-1.035) Urine Protein (Neg-Trace) mg/dL Urine Glucose (UA) (Negative) mg/dL Urine Ketones (Negative) mg/dL Urine Occult Blood (Negative) Urine Nitrate (Negative) Urine Bilirubin (Negative) Urine Urobilinogen (Less than 2) mg/dL Ur Leukocyte Esterase (Negative) Urine WBC (0-5) /hpf Ur Squamous Epith Cells (0-5) /hpf Urine Bacteria (None) /hpf Micro UA Comment Ur Microscopic Review Urine Culture Comments Nasal Screen MRSA (PCR) Not detected (Negative) Salicylates (2.8-20.0) mg/dL Urine Opiates Screen (Neg) Acetaminophen 277.3 H* (10.0-30.0) mcg/mL Ur Barbiturates Screen (Neg) Ur Amphetamines Screen (Neg) U Benzodiazepines Scrn (Neg) Urine Cocaine Screen (Neg) U Cannabinoids Screen (Neg) Serum Alcohol (0-5) mg/dL Hepatitis A IgM Ab Nonreactive (Nonreactive) Hep Bs Antigen Nonreactive (Nonreactive) Hep B Core IgM Ab Nonreactive (Nonreactive) Hep C IgG Ab Nonreactive (Nonreactive) 11/03/17 11/03/17 11/03/17 Range/Units 02:35 04:41 05:30 WBC (4.0-11.0) th/mm3 RBC (4.00-5.30) mil/mm3 Hgb (11.6-15.3) gm/dL Hct (35.0-46.0) % MCV (80.0-100.0) fL MCH (27.0-34.0) pg MCHC (32.0-36.0) % RDW (11.6-17.2) % Plt Count (150-450) th/mm3 MPV (7.0-11.0) fL Neut % (Auto) (16.0-70.0) % Lymph % (Auto) (9.0-44.0) % [place] % (Auto) (0.0-8.0) % Eos % (Auto) (0.0-4.0) % Baso % (Auto) (0.0-2.0) % Neut # (Auto) (1.8-7.7) th/mm3 Lymph # (Auto) (1.0-4.8) th/mm3 [place] # (Auto) (0.0-0.9) th/mm3 Eos # (Auto) (0.0-0.4) th/mm3 Baso # (Auto) (0.0-0.2) th/mm3 WBC Differential Differential Comment PT 15.3 H (9.8-11.6) sec INR 1.5 Ratio APTT 28.2 (24.3-30.1) sec Sodium (136-145) meq/L Potassium (3.5-5.1) meq/L Chloride (98-107) meq/L Carbon Dioxide (21.0-32.0) meq/L Anion Gap (5-15) meq/L BUN (7-18) mg/dL Creatinine (0.50-1.00) mg/dL Estimated GFR (>89) mL/min POC Glucose 120 H 117 H (68-110) mg/dl Random Glucose (74-106) mg/dL Calcium (8.5-10.1) mg/dL Prot Corrected Calcium (8.5-10.1) mg/dL Total Bilirubin (0.2-1.0) mg/dL GGT (5-55) U/L AST (15-37) U/L ALT (10-53) U/L Alkaline Phosphatase (45-117) U/L Total Protein (6.4-8.2) g/dL Albumin (3.4-5.0) g/dL Urine Color (Yellw/Straw) Urine Clarity (Clear) Urine pH (5.0-8.5) Ur Specific [place] (1.002-1.035) Urine Protein (Neg-Trace) mg/dL Urine Glucose (UA) (Negative) mg/dL Urine Ketones (Negative) mg/dL Urine Occult Blood (Negative) Urine Nitrate (Negative) Urine Bilirubin (Negative) Urine Urobilinogen (Less than 2) mg/dL Ur Leukocyte Esterase (Negative) Urine WBC (0-5) /hpf Ur Squamous Epith Cells (0-5) /hpf Urine Bacteria (None) /hpf Micro UA Comment Ur Microscopic Review Urine Culture Comments Nasal Screen MRSA (PCR) (Negative) Salicylates (2.8-20.0) mg/dL Urine Opiates Screen (Neg) Acetaminophen (10.0-30.0) mcg/mL Ur Barbiturates Screen (Neg) Ur Amphetamines Screen (Neg) U Benzodiazepines Scrn (Neg) Urine Cocaine Screen (Neg) U Cannabinoids Screen (Neg) Serum Alcohol (0-5) mg/dL Hepatitis A IgM Ab (Nonreactive) Hep Bs Antigen (Nonreactive) Hep B Core IgM Ab (Nonreactive) Hep C IgG Ab (Nonreactive) 11/03/17 11/03/17 11/03/17 Range/Units 05:30 05:30 07:40 WBC (4.0-11.0) th/mm3 RBC (4.00-5.30) mil/mm3 Hgb (11.6-15.3) gm/dL Hct (35.0-46.0) % MCV (80.0-100.0) fL MCH (27.0-34.0) pg MCHC (32.0-36.0) % RDW (11.6-17.2) % Plt Count (150-450) th/mm3 MPV (7.0-11.0) fL Neut % (Auto) (16.0-70.0) % Lymph % (Auto) (9.0-44.0) % [place] % (Auto) (0.0-8.0) % Eos % (Auto) (0.0-4.0) % Baso % (Auto) (0.0-2.0) % Neut # (Auto) (1.8-7.7) th/mm3 Lymph # (Auto) (1.0-4.8) th/mm3 [place] # (Auto) (0.0-0.9) th/mm3 Eos # (Auto) (0.0-0.4) th/mm3 Baso # (Auto) (0.0-0.2) th/mm3 WBC Differential Differential Comment PT 16.7 H (9.8-11.6) sec INR 1.7 Ratio APTT 48.0 H D (24.3-30.1) sec Sodium 141 D (136-145) meq/L Potassium 3.9 (3.5-5.1) meq/L Chloride 109 H D (98-107) meq/L Carbon Dioxide 22.2 (21.0-32.0) meq/L Anion Gap 10 (5-15) meq/L BUN 2 L (7-18) mg/dL Creatinine 0.65 (0.50-1.00) mg/dL Estimated GFR Greater than 89 (>89) mL/min POC Glucose (68-110) mg/dl Random Glucose 85 (74-106) mg/dL Calcium 7.1 L* (8.5-10.1) mg/dL Prot Corrected Calcium 7.9 L (8.5-10.1) mg/dL Total Bilirubin 0.4 (0.2-1.0) mg/dL GGT 69 H (5-55) U/L AST 30 (15-37) U/L ALT 29 (10-53) U/L Alkaline Phosphatase 69 (45-117) U/L Total Protein 5.6 L D (6.4-8.2) g/dL Albumin 2.5 L D (3.4-5.0) g/dL Urine Color (Yellw/Straw) Urine Clarity (Clear) Urine pH (5.0-8.5) Ur Specific [place] (1.002-1.035) Urine Protein (Neg-Trace) mg/dL Urine Glucose (UA) (Negative) mg/dL Urine Ketones (Negative) mg/dL Urine Occult Blood (Negative) Urine Nitrate (Negative) Urine Bilirubin (Negative) Urine Urobilinogen (Less than 2) mg/dL Ur Leukocyte Esterase (Negative) Urine WBC (0-5) /hpf Ur Squamous Epith Cells (0-5) /hpf Urine Bacteria (None) /hpf Micro UA Comment Ur Microscopic Review Urine Culture Comments Nasal Screen MRSA (PCR) (Negative) Salicylates Less than 1.7 L (2.8-20.0) mg/dL Urine Opiates Screen (Neg) Acetaminophen 151.9 H* (10.0-30.0) mcg/mL Ur Barbiturates Screen (Neg) Ur Amphetamines Screen (Neg) U Benzodiazepines Scrn (Neg) Urine Cocaine Screen (Neg) U Cannabinoids Screen (Neg) Serum Alcohol (0-5) mg/dL Hepatitis A IgM Ab (Nonreactive) Hep Bs Antigen (Nonreactive) Hep B Core IgM Ab (Nonreactive) Hep C IgG Ab (Nonreactive) 11/03/17 11/03/17 Range/Units 07:40 07:45 WBC (4.0-11.0) th/mm3 RBC (4.00-5.30) mil/mm3 Hgb (11.6-15.3) gm/dL Hct (35.0-46.0) % MCV (80.0-100.0) fL MCH (27.0-34.0) pg MCHC (32.0-36.0) % RDW (11.6-17.2) % Plt Count (150-450) th/mm3 MPV (7.0-11.0) fL Neut % (Auto) (16.0-70.0) % Lymph % (Auto) (9.0-44.0) % [place] % (Auto) (0.0-8.0) % Eos % (Auto) (0.0-4.0) % Baso % (Auto) (0.0-2.0) % Neut # (Auto) (1.8-7.7) th/mm3 Lymph # (Auto) (1.0-4.8) th/mm3 [place] # (Auto) (0.0-0.9) th/mm3 Eos # (Auto) (0.0-0.4) th/mm3 Baso # (Auto) (0.0-0.2) th/mm3 WBC Differential Differential Comment PT (9.8-11.6) sec INR Ratio APTT (24.3-30.1) sec Sodium 132 L (136-145) meq/L Potassium 3.9 (3.5-5.1) meq/L Chloride 97 L D (98-107) meq/L Carbon Dioxide 23.4 (21.0-32.0) meq/L Anion Gap 12 (5-15) meq/L BUN 2 L (7-18) mg/dL Creatinine 0.82 (0.50-1.00) mg/dL Estimated GFR 76 L (>89) mL/min POC Glucose 115 H (68-110) mg/dl Random Glucose 411 H D (74-106) mg/dL Calcium 6.9 L* (8.5-10.1) mg/dL Prot Corrected Calcium 7.6 L (8.5-10.1) mg/dL Total Bilirubin 0.4 (0.2-1.0) mg/dL GGT (5-55) U/L AST 31 (15-37) U/L ALT 25 (10-53) U/L Alkaline Phosphatase 73 (45-117) U/L Total Protein 5.8 L (6.4-8.2) g/dL Albumin 2.6 L (3.4-5.0) g/dL Urine Color (Yellw/Straw) Urine Clarity (Clear) Urine pH (5.0-8.5) Ur Specific [place] (1.002-1.035) Urine Protein (Neg-Trace) mg/dL Urine Glucose (UA) (Negative) mg/dL Urine Ketones (Negative) mg/dL Urine Occult Blood (Negative) Urine Nitrate (Negative) Urine Bilirubin (Negative) Urine Urobilinogen (Less than 2) mg/dL Ur Leukocyte Esterase (Negative) Urine WBC (0-5) /hpf Ur Squamous Epith Cells (0-5) /hpf Urine Bacteria (None) /hpf Micro UA Comment Ur Microscopic Review Urine Culture Comments Nasal Screen MRSA (PCR) (Negative) Salicylates (2.8-20.0) mg/dL Urine Opiates Screen (Neg) Acetaminophen 105.4 H (10.0-30.0) mcg/mL Ur Barbiturates Screen (Neg) Ur Amphetamines Screen (Neg) U Benzodiazepines Scrn (Neg) Urine Cocaine Screen (Neg) U Cannabinoids Screen (Neg) Serum Alcohol (0-5) mg/dL Hepatitis A IgM Ab (Nonreactive) Hep Bs Antigen (Nonreactive) Hep B Core IgM Ab (Nonreactive) Hep C IgG Ab (Nonreactive) Imaging Data Radiologist's impression: Liver Ultrasound 11/03/17 00:00 CONCLUSION: 1. Mild gallbladder wall thickening with pericholecystic fluid. In the appropriate clinical setting this could represent cholecystitis. There is some sludge in the dependent portion of the gallbladder. 2. There is a trace amount of free fluid adjacent to the spleen. 3. There is increased echogenicity of the right kidney this can be seen with underlying medical renal disease. Discharge Plan Discharge Disposition Patient Disposition: 30 Still Patient Discharge Details Diagnosis: Overdose on Tylenol, Suicidal ideation Physicians Team ED Provider: Clifton Chandler ED Midlevel Provider: Marisol Moreira Primary Care Provider: Primary Care Malgorzata,Bianka Attending Provider: Osiel Flores Other Providers: Analilia Javed ; Manuel Leos ; Darby Cordova Status ED Status: Left Department Discharge Information Discharge Date/Time: 11/03/17 02:40
[2017-11-02 19:56] LABS: Baso # (Auto) 0.1 th/mm3 (0.0-0.2); Eos # (Auto) 0.5 th/mm3 (0.0-0.4); Eos % (Auto) 6.3 % (0.0-4.0); Hematocrit 32.9 % (35.0-46.0); Hemoglobin 11.2 gm/dL (11.6-15.3); Lymph # (Auto) 2.8 th/mm3 (1.0-4.8); Lymph % (Auto) 31.7 % (9.0-44.0); Mean Corpuscular HGB Conc 33.9 % (32.0-36.0); Mean Corpuscular Hemoglobin 31.2 pg (27.0-34.0); Mean Corpuscular Volume 92.2 fL (80.0-100.0); Mean Platelet Volume 7.3 fL (7.0-11.0); Mono # (Auto) 0.5 th/mm3 (0.0-0.9); Mono % (Auto) 5.4 % (0.0-8.0); Neut # (Auto) 4.8 th/mm3 (1.8-7.7); Neut % (Auto) 55.6 % (16.0-70.0); Platelet Count 287 th/mm3 (150-450); Red Blood Count 3.57 mil/mm3 (4.00-5.30); White Blood Count 8.7 th/mm3 (4.0-11.0)
[2017-11-02 20:04] LABS: Prothrombin Time 10.6 sec (9.8-11.6)
[2017-11-02 20:16] LABS: Bacteria,Urine Rare /hpf; Bilirubin,Urine Negative (Negative); Clarity,Urine Clear (Clear); Color,Urine Yellow (Yellw/Straw); Glucose,Urine (UA) Negative (Negative); Leukocyte Esterase,Urine Negative (Negative); Nitrite,Urine Negative (Negative); Specific Gravity,Urine 1.006 (1.002-1.035); Squamous Epithelial Cell,Urine 1 /hpf (0-5)
[2017-11-02 20:27] LABS: Albumin 3.2 g/dL (3.4-5.0); Anion Gap 8 meq/L (5-15); Aspartate Aminotransferase 20 U/L (15-37); Blood Urea Nitrogen 2 mg/dL (7-18); Calcium 7.8 mg/dL (8.5-10.1); Carbon Dioxide 28.4 meq/L (21.0-32.0); Chloride 95 meq/L (98-107); Glomerular Filtration Rate 74 mL/min (>89); Glucose,Random 80 mg/dL (74-106); Potassium 3.6 meq/L (3.5-5.1); Sodium 131 meq/L (136-145)
[2017-11-02 20:28] LABS: Acetaminophen 90.9 mcg/mL (10.0-30.0); Alanine Aminotransferase 15 U/L (10-53)
[2017-11-02 20:30] LABS: Alkaline Phosphatase 77 U/L (45-117); Total Protein 6.5 g/dL (6.4-8.2)
[2017-11-02 20:32] LABS: Alcohol 188 mg/dL (0-5)
[2017-11-02 21:24] LABS: Amphetamine Screen,Urine Neg (Neg); Barbiturate Screen,Urine Neg (Neg); Cannabinoid Screen,Urine Neg (Neg); Cocaine Screen,Urine Neg (Neg)
[2017-11-02 21:51] LABS: Opiate Screen,Urine Neg (Neg)
[2017-11-02] MEDS ORDERED: WATER IV.SIG ONE ×6 (23:03)
[2017-11-02] MEDS ORDERED: ACETYLCYSTEINE IV.SIG ONE ×6 (23:03)
[2017-11-02] MEDS ORDERED: DEXTROSE 5% IV.SIG ONE ×6 (23:03)
[2017-11-02] MEDS ORDERED: Sod Chloride 0.9% Inj 1,000 ML IV.SIG SCH ×2 (23:45)
[2017-11-03] MEDS ORDERED: Potassium Phosphate Inj 30 MMOL in Sodium Chlor 0.9% Inj 250 ML IV.SIG PRN (00:57)
[2017-11-03] MEDS ORDERED: Magnesium Sulfate Inj 2 GM in Sodium Chlor 0.9% Inj 96 ML IV.SIG PRN (00:57)
[2017-11-03] MEDS ORDERED: Potassium Chlor 40 mEq Premix 40 MEQ/100 ML PIGGYBACK IV.SIG PRN ×2 (00:57)
[2017-11-03] MEDS ORDERED: Magnesium Oxide 400 MG Tablet PO PRN (00:57)
[2017-11-03] MEDS ORDERED: Sodium Phosphate Inj 30 MMOL in Sodium Chlor 0.9% Inj 250 ML IV.SIG PRN (00:57)
[2017-11-03] MEDS ORDERED: Potassium Chloride 25 MEQ Effervescent Tablet PO PRN (00:57)
[2017-11-03] MEDS ORDERED: Potassium Chlor 20 mEq Premix 20 MEQ/100 ML PIGGYBACK IV.SIG PRN ×2 (00:57)
[2017-11-03] MEDS ORDERED: Potassium Phosphate 500 MG Soluble Tablet PO PRN ×2 (00:57)
[2017-11-03] MEDS ORDERED: Magnesium Sulfate Inj 4 GM in Sodium Chlor 0.9% Inj 92 ML IV.SIG PRN (00:57)
--- NOTE | 2017-11-03 01:03 | P.HPCC ---
History of Present Illness Service: Critical Care Medicine Primary Care Physician: No Primary Care Physician History of Present Illness: This is a 42-year-old female with a history of major depression disorder, polysubstance abuse, and prior suicidal ideations who presented after intentional Tylenol overdose. She stated she took 2500mg tylenol. She has recently had an attempted suicide with tylenol overdose. She has complaints of right upper quadrant pain and nausea. She was initially hypotensive and received 4 L crystalloid infusion which improved her blood pressure. Her Tylenol level is 277. She was started on N-acetylcysteine. On my evaluation, she is very sad and will not say much. She says she hurts. She states she was trying to kill herself. The remainder of the review of systems is negative other than right upper quadrant abdominal pain, nausea, and suicidal ideations. She is Leroy acted. Inpatient Certification: I certify that the inpatient services were ordered in accordance with Medicare regulations governing the order. This includes certification that hospital inpatient services are reasonable and necessary and in the case of services not specified as inpatient-only under 42 CFR 419.22(n), that they are appropriately provided as inpatient services in accordance to with the 2-midnight benchmark under 43 CFR 412.3(e) Estimated Total Length of Stay (Days): 7 Plans for Post Hospital Care: Not yet determined Review of Systems All other systems reviewed negative except as stated in HPI PMFSH - History History Provided By: Patient - Medical History Medical History: Medical History (Last Reviewed 11/03/17 @ 01:20 by Osiel Flores MD) Anorexia Anxiety Bulimia COPD (chronic obstructive pulmonary disease) GERD (gastroesophageal reflux disease) Gastric ulcer Major depression Pancreatitis Pneumonia - Surgical History Surgical History: Surgical History (Last Reviewed 11/03/17 @ 01:20 by Osiel Flores MD) No history of previous surgery - Family History Family History: Family History (Last Reviewed 11/03/17 @ 01:20 by Osiel Flores MD) Other Hypertension - Social History I have reviewed the patient's Social History: Yes - Tobacco History Second Hand Smoke Exposure: Yes Tobacco Use In Past 30 Days: Yes Smoking Status: Heavy tobacco smoker Tobacco Type: Cigarettes - Alcohol History How Often Do You Have a Drink Containing Alcohol: 4 or more times a week - Substance Use History Substance History: Active Abuse - Substance Use Type Alcohol Status: Active Route Used: By Mouth Reason for Use: Calm Down, Feels Good - Travel History Recent Travel in the [place] Within the Last 8 Weeks: No Recent Travel Out of the Country Within the Last 8 Weeks: No - Immunization History Tetanus Immunization: <5 Years Hx Influenza Vaccine This Season: No Medications and Allergies Active Medications: Active Medications Albuterol (Duoneb Neb (Prn)) 1 ampul NEB Q2HR NEB PRN PRN Reason: WHEEZING Chlorhexidine Gluconate (Chlorhexidine 2% Cloth) 3 pack TOPICAL DAILY@0400 PRN PRN Reason: Extra cloth needed Stop: 11/08/17 03:59 Heparin Sodium (Porcine) (Heparin Inj) 5,000 units SQ Q8HR JANAY Sodium Chloride (Ns Inj) 1,000 mls @ 0 mls/hr IV.SIG BOLUS JANAY Last Infusion: 11/03/17 01:01 Dose: Infused Sodium Chloride (Ns Inj) 1,000 mls @ 0 mls/hr IV.SIG BOLUS JANAY Last Infusion: 11/03/17 01:01 Dose: Infused Magnesium Sulfate 4 gm/ Sodium (Chloride) 100 mls @ 50 mls/hr IV.SIG UNSCH PRN PRN Reason: For Magnesium 0.9 - 1.1 mg/dL Magnesium Sulfate 2 gm/ Sodium (Chloride) 100 mls @ 50 mls/hr IV.SIG UNSCH PRN PRN Reason: For Magnesium 1.2 - 1.6 mg/dL Sodium Chloride (Ns Inj) 1,000 mls @ 84 mls/hr IV.CONT .[id number] JANAY Lactulose (Lactulose Liq) 30 ml PO BID JANAY Magnesium Oxide (Mag-Ox) 800 mg PO UNSCH PRN PRN Reason: For Magnesium 1.2 - 1.6 mg/dL Allergies Allergy/AdvReac Type Severity Reaction Status Date / Time lithium Allergy Severe Seizures Verified 11/02/17 18:56 Home Medications Medication Instructions Recorded Confirmed Type fluoxetine 40 mg PO DAILY 10/06/17 11/02/17 History gabapentin 300 mg PO TID 11/02/17 11/02/17 History omeprazole magnesium [Prilosec] 40 mg PO BID 11/02/17 11/02/17 History trazodone 250 mg PO DAILY 11/02/17 11/02/17 History Results - Labs CBC & Chem 7: 11/02/17 19:40 11/02/17 19:40 Labs: Short CBC 11/02/17 Range/Units 19:40 WBC 8.7 (4.0-11.0) th/mm3 Hgb 11.2 L (11.6-15.3) gm/dL Hct 32.9 L (35.0-46.0) % Plt Count 287 D (150-450) th/mm3 BMP 11/02/17 19:40 Sodium 131 L Potassium 3.6 Chloride 95 L Carbon Dioxide 28.4 BUN 2 L Creatinine 0.84 Calcium 7.8 L Liver Function 11/02/17 Range/Units 19:40 Total Bilirubin 0.2 (0.2-1.0) mg/dL AST 20 (15-37) U/L ALT 15 (10-53) U/L Alkaline Phosphatase 77 (45-117) U/L Albumin 3.2 L (3.4-5.0) g/dL Urine 11/02/17 Range/Units 19:40 Urine Color Yellow (Yellw/Straw) Urine Clarity Clear (Clear) Urine pH 7.0 (5.0-8.5) Ur Specific [place] 1.006 (1.002-1.035) Urine Protein Negative (Neg-Trace) mg/dL Urine Glucose (UA) Negative (Negative) mg/dL Exam Vital signs: Vital Signs 11/02/17 18:41 11/02/17 18:46 11/02/17 18:58 Temperature 36.7 C 36.7 C Pulse Rate 92 H 92 H 82 Respiratory Rate 18 16 16 Blood Pressure 99/56 L 99/56 L 93/57 L Pulse Oximetry 99 99 99 11/02/17 19:50 11/02/17 20:29 11/02/17 21:12 Temperature Pulse Rate 85 86 Respiratory Rate 16 16 Blood Pressure 89/55 L 93/54 L Pulse Oximetry 99 98 100 11/02/17 23:00 11/02/17 23:50 11/03/17 00:35 Temperature Pulse Rate 80 82 81 Respiratory Rate 17 16 16 Blood Pressure 82/52 L 86/54 L 98/59 L Pulse Oximetry 97 96 100 Intake & Output 11/02/17 11/02/17 11/03/17 06:59 18:59 06:59 Intake Total 4000 / 4000 Output Total 375 / 375 Balance 3625 / 3625 Weight 36.287 kg Intake: IV 4000 / 4000 NS Inj 1,000 ML @ Wide Open IV. 4000 / 4000 SIG BOLUS JANAY Rx#:[id number] Output: Urine 375 / 375 Other: # Voids 1 Narrative: GENERAL: Middle-aged female, lying in bed, in distress due to abdominal pain. Very sad affect. HEENT: Normocephalic. Atraumatic. Pupils equal, round, reactive, conjugate. Mucous membranes are moist NECK: Trachea is midline. There is no JVD. CHEST: Equal chest rise. Room air. CARDIOVASCULAR: Normal rate, regular rhythm. Sinus. Pressures improved to 90s systolic with a mean arterial pressure of 78 mmHg. ABDOMEN: Soft, tender in the right upper quadrant, nondistended. No guarding. No rebound. There is mild hepatomegaly approximately 2 cm below the costal margin. MUSCULOSKELETAL: Pulses 2+. No peripheral edema. NEUROLOGICAL: RASS 0. Sad affect. Moves all extremities to command. No focal deficits. Caprini VTE Risk Assessment Caprini VTE Risk Assessment: Moderate/High Risk (score >= 2) Caprini Risk Assessment Model: Point Value = 1 Point Value = 2 Point Value = 3 Point Value = 5 Age 41-60 Minor surgery BMI > 25 kg/m2 Swollen legs Varicose veins or History of unexplained or recurrent spontaneous Oral contraceptives or hormone replacement Sepsis (< 1 month) Serious lung disease, including pneumonia (< 1 month) Abnormal pulmonary function Acute myocardial infarction Congestive heart failure (< 1 month) History of inflammatory bowel disease Medical patient at bed rest Age 61-74 Arthroscopic surgery Major open surgery (> 45 min) Laparoscopic surgery (> 45 min) Malignancy Confined to bed (> 72 hours) Immobilizing plaster cast Central venous access Age >= 75 History of VTE Family history of VTE Factor V Leiden Prothrombin [id number] Lupus anticoagulant Anticardiolipin antibodies Elevated serum homocysteine Heparin-induced thrombocytopenia Other congenital or acquired thrombophilia Stroke (< 1 month) Elective arthroplasty Hip, pelvis, or leg fracture Acute spinal cord injury (< 1 month) Prophylaxis Regimen: Total Risk Factor Score Risk Level Prophylaxis Regimen 0-1 Low Early ambulation 2 Moderate Order ONE of the following: *Sequential Compression Device (SCD) *Heparin 5000 units SQ BID 3-4 Higher Order ONE of the following medications: *Heparin 5000 units SQ TID *Enoxaparin/Lovenox 40 mg SQ daily (WT < 150 kg, CrCl > 30 mL/min) *Enoxaparin/Lovenox 30 mg SQ daily (WT < 150 kg, CrCl > 10-29 mL/min) *Enoxaparin/Lovenox 30 mg SQ BID (WT < 150 kg, CrCl > 30 mL/min) AND/OR *Sequential Compression Device (SCD) 5 or more Highest Order ONE of the following medications: *Heparin 5000 units SQ TID (Preferred with Epidurals) *Enoxaparin/Lovenox 40 mg SQ daily (WT < 150 kg, CrCl > 30 mL/min) *Enoxaparin/Lovenox 30 mg SQ daily (WT < 150 kg, CrCl > 10-29 mL/min) *Enoxaparin/Lovenox 30 mg SQ BID (WT < 150 kg, CrCl > 30 mL/min) AND *Sequential Compression Device (SCD) Assessment and Plan - Assessment and Plan Plan: Assessment: 42-year-old female with suicidal ideations and intentional Tylenol overdose. Her Tylenol level is very high and she has a very high risk of dying from this intentional overdose. I anticipate her to become more critically ill and continue decompensate given the rapid rise in Tylenol and her abdominal pain which is early in the course of her illness. We will admit to the ICU for serial labs, frequent neurochecks, frequent glucose checks. She does need to be anterior and involuntary hold and we will consult psychiatry. Active problems: Suicidal ideations Major depressive disorder Intentional acetaminophen overdose Alcohol intoxication Alcohol dependence Nausea secondary to Tylenol overdose Right upper quadrant abdominal pain secondary to Tylenol overdose Plan: Admit to ICU q1h neurochecks q2h glucose checks Serial every 6 hours CMP, coags, Tylenol level Daily CBC, CMP, coags, ammonia, magnesium, phosphorus Psychiatry consult Watch for EtOH withdrawal iv thiamine, mvi hold off on CIWA as neuro exam is more important right now to monitor for cerebral edema. Continue N-acetylcysteine Appreciate poison control input Zofran as needed for nausea SCDs Subcu heparin Protonix Gastroenterology consult Send hepatitis panel Critical care time: 35 minutes, exclusive of separately billable procedures.
[2017-11-03] MEDS: Sod Chloride 0.9% Inj 1,000 ML IV.CONT SCH ×2 (02:43→14:13)
[2017-11-03] MEDS: Pantoprazole Inj 40 MG Vial IV.PUSH SCH (02:44)
[2017-11-03] MEDS: Chlorhexidine Gluconate 2% 1 Pack (2 Cloths) TOPICAL SCH (03:18)
[2017-11-03 03:55] LABS: Hepatitis A IgM Antibody Nonreactive (Nonreactive)
[2017-11-03 03:56] LABS: Hepatitits B Surface Antigen Nonreactive (Nonreactive)
[2017-11-03] MEDS ORDERED: Chlorhexidine Gluconate 2% 1 Pack (2 Cloths) TOPICAL PRN (04:00)
[2017-11-03] MEDS ORDERED: Heparin - SQ 10,000 UNITS/ML Vial SQ SCH (06:00)
[2017-11-03 06:35] LABS: Activated Partial Thrombo Time 28.2 sec (24.3-30.1); INR 1.5 Ratio; Prothrombin Time 15.3 sec (9.8-11.6)
[2017-11-03 06:55] LABS: Alanine Aminotransferase 29 U/L (10-53); Albumin 2.5 g/dL (3.4-5.0); Alkaline Phosphatase 69 U/L (45-117); Anion Gap 10 meq/L (5-15); Aspartate Aminotransferase 30 U/L (15-37); Blood Urea Nitrogen 2 mg/dL (7-18); Calcium 7.1 mg/dL (8.5-10.1); Carbon Dioxide 22.2 meq/L (21.0-32.0); Chloride 109 meq/L (98-107); Gamma Glutamyl Transpeptidase 69 U/L (5-55); Glomerular Filtration Rate Greater Than 89 mL/min (>89); Glucose,Random 85 mg/dL (74-106); Potassium 3.9 meq/L (3.5-5.1); Sodium 141 meq/L (136-145); Total Protein 5.6 g/dL (6.4-8.2)
[2017-11-03 07:15] LABS: Acetaminophen 151.9 mcg/mL (10.0-30.0)
[2017-11-03 08:14] LABS: INR 1.7 Ratio; Prothrombin Time 16.7 sec (9.8-11.6)
[2017-11-03 08:29] LABS: Acetaminophen 105.4 mcg/mL (10.0-30.0); Albumin 2.6 g/dL (3.4-5.0); Calcium 6.9 mg/dL (8.5-10.1); Carbon Dioxide 23.4 meq/L (21.0-32.0); Potassium 3.9 meq/L (3.5-5.1); Total Protein 5.8 g/dL (6.4-8.2)
--- NOTE | 2017-11-03 09:11 | US ---
EXAM DATE: 11/03/2017 12:00 AM EDT AGE/SEX: 42 years / Female INDICATIONS: Abdominal pain. CLINICAL DATA: This is the patient's initial encounter. Patient reports that signs and symptoms have been present for 1 day and indicates a pain score of 0/10. MEDICAL/SURGICAL HISTORY: . Chronic obstructive pulmonary disease. Gastroesophageal reflux dise ase. Pancreatitis. Ulcers. None. COMPARISON: [facility], CT ABDOMEN & PELVIS W/O CONTRAST, 10/06/2017. . MEASUREMENTS: Liver:__ 16.6 cm. Common Bile Duct:__ 3mm. Right Kidney:__ 10.0 x 5.0 x 3.7 cm. FINDINGS: Liver: Normal echotexture without focal lesion or ductal dilatation. Portal Vein: Hepatopedal flow seen in portal vein. Common Duct: No intraluminal mass or stone visualized. Gallbladder: There is thickening of the gallbladder wall and a small amount of pericholecystic fluid . No gallstones are seen. There is a small amount of sludge in the dependent portion of the gallbladd er. Pancreas: The visualized portions are within normal limits Right Kidney: Increased echotexture. No mass or hydronephrosis. Other: None. CONCLUSION: 1. Mild gallbladder wall thickening with pericholecystic fluid. In the appropriate clinical setting this could represent cholecystitis. There is some sludge in the dependent portion of the gallbladder. 2. There is a trace amount of free fluid adjacent to the spleen. 3. There is increased echogenicity of the right kidney this can be seen with underlying medical luba l disease. Electronically signed by: Mehrdad Zaidi MD 11/03/2017 9:09 AM EDT
--- NOTE | 2017-11-03 09:12 | P.CONGI ---
History of Present Illness Consult date: 11/03/17 Consult reason: Tylenol overdose Chief complaint: Tylenol Overdose, Hypotension History of Present Illness: This is a 41-year-old female with past medical history significant for eating disorder, COPD, gastric ulcers, ETOH abuse who presented to the emergency department last night after taking 20 tablets of Tylenol at around 5 or 6 in the evening as a suicidal attempt. Patient states she called her friend who came over and drove her to the emergency department. Patient denies emesis after ingesting the Tylenol. Poison control has been contacted, patient has been admitted to ICU, received acetylcysteine per protocol. Patient is complaining of right-sided abdominal pain, states this is been going on for a few weeks, describes the pain as sharp, worse after meals but does not notice specific foods that make the pain worse. Also complaining of nausea for the past 2 weeks, states intermittent, related to food intake. Denies any emesis related to the nausea. Patient does have anorexia and bulimia and does make herself vomit. Patient is unsure of any weight loss because her weight fluctuates so much. Denies any hematochezia or melena, states that she is generally on the side of constipated and takes Dulcolax on a daily basis. Patient reports taking ibuprofen multiple times daily for her abdominal pain, and does provide some relief. Also reports drinking daily, states she will drink for days at a time and then go a few weeks without drinking any alcohol. She had 3-4 vodka drinks yesterday. Also reports smoking a pack per day. <Milly Mckeon - Last Filed: 11/03/17 09:27> Review of Systems Gastrointestinal: Reports abdominal pain, Reports constipation, Reports nausea, Denies black, tarry stools, Denies bright, red blood in stools, Denies vomiting <Milly Mckeon - Last Filed: 11/03/17 09:27> PMFSH - History History Provided By: Patient - Medical History Medical History: Medical History (Last Reviewed 11/03/17 @ 08:40 by Cori Desai) Anorexia Anxiety Bulimia COPD (chronic obstructive pulmonary disease) GERD (gastroesophageal reflux disease) Gastric ulcer Major depression Pancreatitis Pneumonia - Surgical History Surgical History: Surgical History (Last Reviewed 11/03/17 @ 08:40 by Cori Desai) No history of previous surgery - Family History Family History: Family History (Last Reviewed 11/03/17 @ 01:20 by Osiel Flores MD) Other Hypertension - Tobacco History Second Hand Smoke Exposure: Yes Tobacco Use In Past 30 Days: Yes Smoking Status: Current every day smoker Tobacco Type: Cigarettes - Alcohol History How Often Do You Have a Drink Containing Alcohol: 4 or more times a week - Substance Use History Substance History: Active Abuse - Substance Use Type Alcohol Status: Active Route Used: By Mouth Reason for Use: Calm Down, Feels Good - Travel History Recent Travel in the [place] Within the Last 8 Weeks: No Recent Travel Out of the Country Within the Last 8 Weeks: No - Immunization History Tetanus Immunization: <5 Years Hx Influenza Vaccine This Season: No <Milly Mckeon - Last Filed: 11/03/17 09:27> - Medical History Medical History: Medical History (Last Reviewed 11/03/17 @ 08:40 by Cori Desai) Anorexia Anxiety Bulimia COPD (chronic obstructive pulmonary disease) GERD (gastroesophageal reflux disease) Gastric ulcer Major depression Pancreatitis Pneumonia - Surgical History Surgical History: Surgical History (Last Reviewed 11/03/17 @ 08:40 by Cori Desai) No history of previous surgery - Family History Family History: Family History (Last Reviewed 11/03/17 @ 01:20 by Osiel Flores MD) Other Hypertension <Analilia Javed - Last Filed: 11/03/17 11:26> Medications and Allergies Active Medications: Active Medications Albuterol (Duoneb Neb (Prn)) 1 ampul NEB Q2HR NEB PRN PRN Reason: WHEEZING Chlorhexidine Gluconate (Chlorhexidine 2% Cloth) 3 pack TOPICAL DAILY@0400 PRN PRN Reason: Extra cloth needed Stop: 11/08/17 03:59 Chlorhexidine Gluconate (Chlorhexidine 2% Cloth) 3 pack TOPICAL DAILY@0400 JANAY Stop: 11/08/17 03:59 Last Admin: 11/03/17 03:18 Dose: 3 pack Heparin Sodium (Porcine) (Heparin Inj) 5,000 units SQ Q8HR JANAY Last Admin: 11/03/17 05:36 Dose: 5,000 units Sodium Chloride (Ns Inj) 1,000 mls @ 0 mls/hr IV.SIG BOLUS JANAY Last Infusion: 11/03/17 01:01 Dose: Infused Sodium Chloride (Ns Inj) 1,000 mls @ 0 mls/hr IV.SIG BOLUS PENDING SALE TO [facility] Last Infusion: 11/03/17 01:01 Dose: Infused Magnesium Sulfate 4 gm/ Sodium (Chloride) 100 mls @ 50 mls/hr IV.SIG UNSCH PRN PRN Reason: For Magnesium 0.9 - 1.1 mg/dL Magnesium Sulfate 2 gm/ Sodium (Chloride) 100 mls @ 50 mls/hr IV.SIG UNSCH PRN PRN Reason: For Magnesium 1.2 - 1.6 mg/dL Sodium Chloride (Ns Inj) 1,000 mls @ 84 mls/hr IV.CONT .[id number] PENDING SALE TO [facility] Last Admin: 11/03/17 02:43 Dose: 84 mls/hr Potassium Chloride (Kcl 40 Meq Premix Inj) 40 meq in 100 mls @ 25 mls/hr IV.SIG Q4H PRN PRN Reason: For Potassium 2.8 - 3.2 mEq/L Potassium Chloride (Kcl 20 Meq Premix Inj) 20 meq in 100 mls @ 50 mls/hr IV.SIG Q2H PRN PRN Reason: For Potassium 3.3 - 3.5 mEq/L Potassium Chloride (Kcl 40 Meq Premix Inj) 40 meq in 100 mls @ 25 mls/hr IV.SIG UNSCH PRN PRN Reason: For Potassium 3.3 - 3.5 mEq/L Potassium Chloride (Kcl 20 Meq Premix Inj) 20 meq in 100 mls @ 50 mls/hr IV.SIG Q2H PRN PRN Reason: For Potassium 2.8 - 3.2 mEq/L Potassium Phosphate 30 mmol/ (Sodium Chloride) 260 mls @ 42 mls/hr IV.SIG UNSCH PRN PRN Reason: SEE LABEL COMMENTS Sodium Phosphate 30 mmol/ (Sodium Chloride) 260 mls @ 42 mls/hr IV.SIG UNSCH PRN PRN Reason: For Phosphorus < 2.5 mg/dL Lactulose (Lactulose Liq) 30 ml PO BID JANAY Magnesium Oxide (Mag-Ox) 800 mg PO UNSCH PRN PRN Reason: For Magnesium 1.2 - 1.6 mg/dL Ondansetron HCl (Zofran Inj) 4 mg IV.PUSH Q6H PRN PRN Reason: NAUSEA OR VOMITING Pantoprazole Sodium (Protonix Inj) 40 mg IV.PUSH Q24H PENDING SALE TO [facility] Last Admin: 11/03/17 02:44 Dose: Not Given Potassium Bicarb/Potassium Chloride (K-Lyte Cl Eff) 50 meq PO UNSCH PRN PRN Reason: For Potassium 3.3 - 3.5 mEq/L Potassium Phosphate (K-Phos Original) 2,000 mg PO Q4H PRN PRN Reason: Phosphorus Less Than 2.5 mg/dL Potassium Phosphate (K-Phos Original) 2,000 mg PO UNSCH PRN PRN Reason: SEE LABEL COMMENTS Sodium Chloride (Ns Flush) 2 ml IV.FLUSH UNSCH PRN PRN Reason: FLUSH AFTER USING IV ACCESS <Milly Mckeon - Last Filed: 11/03/17 09:27> Active Medications: Active Medications Albuterol (Duoneb Neb (Prn)) 1 ampul NEB Q2HR NEB PRN PRN Reason: WHEEZING Chlorhexidine Gluconate (Chlorhexidine 2% Cloth) 3 pack TOPICAL DAILY@0400 PRN PRN Reason: Extra cloth needed Stop: 11/08/17 03:59 Chlorhexidine Gluconate (Chlorhexidine 2% Cloth) 3 pack TOPICAL DAILY@0400 JANAY Stop: 11/08/17 03:59 Last Admin: 11/03/17 03:18 Dose: 3 pack Sodium Chloride (Ns Inj) 1,000 mls @ 0 mls/hr IV.SIG BOLUS PENDING SALE TO [facility] Last Infusion: 11/03/17 01:01 Dose: Infused Sodium Chloride (Ns Inj) 1,000 mls @ 0 mls/hr IV.SIG BOLUS PENDING SALE TO [facility] Last Infusion: 11/03/17 01:01 Dose: Infused Magnesium Sulfate 4 gm/ Sodium (Chloride) 100 mls @ 50 mls/hr IV.SIG UNSCH PRN PRN Reason: For Magnesium 0.9 - 1.1 mg/dL Magnesium Sulfate 2 gm/ Sodium (Chloride) 100 mls @ 50 mls/hr IV.SIG UNSCH PRN PRN Reason: For Magnesium 1.2 - 1.6 mg/dL Sodium Chloride (Ns Inj) 1,000 mls @ 84 mls/hr IV.CONT .[id number] PENDING SALE TO [facility] Last Admin: 11/03/17 02:43 Dose: 84 mls/hr Potassium Chloride (Kcl 40 Meq Premix Inj) 40 meq in 100 mls @ 25 mls/hr IV.SIG Q4H PRN PRN Reason: For Potassium 2.8 - 3.2 mEq/L Potassium Chloride (Kcl 20 Meq Premix Inj) 20 meq in 100 mls @ 50 mls/hr IV.SIG Q2H PRN PRN Reason: For Potassium 3.3 - 3.5 mEq/L Potassium Chloride (Kcl 40 Meq Premix Inj) 40 meq in 100 mls @ 25 mls/hr IV.SIG UNSCH PRN PRN Reason: For Potassium 3.3 - 3.5 mEq/L Potassium Chloride (Kcl 20 Meq Premix Inj) 20 meq in 100 mls @ 50 mls/hr IV.SIG Q2H PRN PRN Reason: For Potassium 2.8 - 3.2 mEq/L Potassium Phosphate 30 mmol/ (Sodium Chloride) 260 mls @ 42 mls/hr IV.SIG UNSCH PRN PRN Reason: SEE LABEL COMMENTS Sodium Phosphate 30 mmol/ (Sodium Chloride) 260 mls @ 42 mls/hr IV.SIG UNSCH PRN PRN Reason: For Phosphorus < 2.5 mg/dL Multivitamins 10 ml/ Thiamine HCl 100 mg/ Folic Acid 1 mg/Sodium Chloride 511.2 mls @ 125 mls/hr IV.SIG Q24H JANAY Stop: 11/05/17 15:06 Lactulose (Lactulose Liq) 30 ml PO BID PENDING SALE TO [facility] Last Admin: 11/03/17 10:59 Dose: Not Given Lorazepam (Ativan Inj) 1 mg IV.PUSH Q2H PRN PRN Reason: WITHDRAWAL Magnesium Oxide (Mag-Ox) 800 mg PO UNSCH PRN PRN Reason: For Magnesium 1.2 - 1.6 mg/dL Ondansetron HCl (Zofran Inj) 4 mg IV.PUSH Q6H PRN PRN Reason: NAUSEA OR VOMITING Pantoprazole Sodium (Protonix Inj) 40 mg IV.PUSH Q24H PENDING SALE TO [facility] Last Admin: 11/03/17 02:44 Dose: Not Given Potassium Bicarb/Potassium Chloride (K-Lyte Cl Eff) 50 meq PO UNSCH PRN PRN Reason: For Potassium 3.3 - 3.5 mEq/L Potassium Phosphate (K-Phos Original) 2,000 mg PO Q4H PRN PRN Reason: Phosphorus Less Than 2.5 mg/dL Potassium Phosphate (K-Phos Original) 2,000 mg PO UNSCH PRN PRN Reason: SEE LABEL COMMENTS Sodium Chloride (Ns Flush) 2 ml IV.FLUSH UNSCH PRN PRN Reason: FLUSH AFTER USING IV ACCESS <TelloAnalilia rizo - Last Filed: 11/03/17 11:26> Allergies Allergy/AdvReac Type Severity Reaction Status Date / Time lithium Allergy Severe Seizures Verified 11/02/17 18:56 Home Medications Medication Instructions Recorded Confirmed Type fluoxetine 40 mg PO DAILY 10/06/17 11/02/17 History gabapentin 300 mg PO TID 11/02/17 11/02/17 History omeprazole magnesium [Prilosec] 40 mg PO BID 11/02/17 11/02/17 History trazodone 250 mg PO DAILY 11/02/17 11/02/17 History Exam Vital signs: Vital Signs 11/02/17 18:41 11/02/17 18:46 11/02/17 18:58 Temperature 98.1 F 98.1 F Pulse Rate 92 H 92 H 82 Respiratory Rate 18 16 16 Blood Pressure 99/56 L 99/56 L 93/57 L Pulse Oximetry 99 99 99 11/02/17 19:50 11/02/17 20:29 11/02/17 21:12 Temperature Pulse Rate 85 86 Respiratory Rate 16 16 Blood Pressure 89/55 L 93/54 L Pulse Oximetry 99 98 100 11/02/17 23:00 11/02/17 23:50 11/03/17 00:35 Temperature Pulse Rate 80 82 81 Respiratory Rate 17 16 16 Blood Pressure 82/52 L 86/54 L 98/59 L Pulse Oximetry 97 96 100 11/03/17 01:12 11/03/17 02:15 11/03/17 02:21 Temperature Pulse Rate 80 81 Respiratory Rate 16 16 Blood Pressure 97/63 L 95/61 L Pulse Oximetry 95 95 97 11/03/17 02:30 11/03/17 03:00 11/03/17 04:00 Temperature 97.4 F L Pulse Rate 84 77 84 Respiratory Rate 14 16 33 H Blood Pressure 113/78 Pulse Oximetry 100 98 96 11/03/17 05:00 11/03/17 06:00 11/03/17 06:14 Temperature Pulse Rate 80 81 Respiratory Rate 20 25 H Blood Pressure Pulse Oximetry 98 98 98 Intake & Output 11/02/17 11/03/17 11/03/17 18:59 06:59 18:59 Intake Total 4227.5 / 4227.5 Output Total 775 / 775 Balance 3452.5 / 3452.5 Weight 36.287 kg 40 kg Intake: IV 4227.5 / 4227.5 Acetadote Inj 5,450 MG In D5W 227.5 / 227.5 Inj 200 ML @ 227.25 mls/hr IV. SIG ONCE ONE Rx#:[id number] NS Inj 1,000 ML @ Wide Open IV. 4000 / 4000 SIG BOLUS JANAY Rx#:[id number] Output: Urine 775 / 775 Other: # Voids 4 # Bowel Movements 0 Weight On Admission 40 kg - Constitutional no acute distress - Routine HEENT Exam Head: Present: normocephalic, atraumatic Eye: Absent: conjunctival icterus - Routine Respiratory Exam Absent: accessory muscle use - Routine Cardiovascular Exam Present: RRR - Routine Abdominal Exam Present: soft, normoactive bowel sounds. Absent: tenderness, distended - Routine Skin Exam Present: dry, warm - Routine Neurological Exam Present: alert, oriented X3 <Milly Mckeon - Last Filed: 11/03/17 09:27> Vital signs: Vital Signs 11/02/17 18:41 11/02/17 18:46 11/02/17 18:58 Temperature 98.1 F 98.1 F Pulse Rate 92 H 92 H 82 Respiratory Rate 18 16 16 Blood Pressure 99/56 L 99/56 L 93/57 L Pulse Oximetry 99 99 99 11/02/17 19:50 11/02/17 20:29 11/02/17 21:12 Temperature Pulse Rate 85 86 Respiratory Rate 16 16 Blood Pressure 89/55 L 93/54 L Pulse Oximetry 99 98 100 11/02/17 23:00 11/02/17 23:50 11/03/17 00:35 Temperature Pulse Rate 80 82 81 Respiratory Rate 17 16 16 Blood Pressure 82/52 L 86/54 L 98/59 L Pulse Oximetry 97 96 100 11/03/17 01:12 11/03/17 02:15 11/03/17 02:21 Temperature Pulse Rate 80 81 Respiratory Rate 16 16 Blood Pressure 97/63 L 95/61 L Pulse Oximetry 95 95 97 11/03/17 02:30 11/03/17 03:00 11/03/17 04:00 Temperature 97.4 F L Pulse Rate 84 77 84 Respiratory Rate 14 16 33 H Blood Pressure 113/78 Pulse Oximetry 100 98 96 11/03/17 05:00 11/03/17 06:00 11/03/17 06:14 Temperature Pulse Rate 80 81 Respiratory Rate 20 25 H Blood Pressure Pulse Oximetry 98 98 98 11/03/17 09:36 Temperature Pulse Rate Respiratory Rate Blood Pressure Pulse Oximetry 100 Intake & Output 11/02/17 11/03/17 11/03/17 18:59 06:59 18:59 Intake Total 4227.5 / 4227.5 Output Total 775 / 775 Balance 3452.5 / 3452.5 Weight 36.287 kg 40 kg Intake: IV 4227.5 / 4227.5 Acetadote Inj 5,450 MG In D5W 227.5 / 227.5 Inj 200 ML @ 227.25 mls/hr IV. SIG ONCE ONE Rx#:[id number] NS Inj 1,000 ML @ Wide Open IV. 4000 / 4000 SIG BOLUS JANAY Rx#:[id number] Output: Urine 775 / 775 Other: # Voids 4 # Bowel Movements 0 Weight On Admission 40 kg <Analilia Javed - Last Filed: 11/03/17 11:26> Results - Labs CBC & Chem 7: 11/02/17 19:40 11/03/17 07:40 Labs: Laboratory Results - last 24 hr 11/02/17 11/02/17 11/02/17 19:40 19:40 19:40 WBC 8.7 RBC 3.57 L Hgb 11.2 L Hct 32.9 L MCV 92.2 MCH 31.2 MCHC 33.9 RDW 16.0 Plt Count 287 D MPV 7.3 Neut % (Auto) 55.6 Lymph % (Auto) 31.7 [place] % (Auto) 5.4 Eos % (Auto) 6.3 H Baso % (Auto) 1.0 Neut # (Auto) 4.8 Lymph # (Auto) 2.8 [place] # (Auto) 0.5 Eos # (Auto) 0.5 H Baso # (Auto) 0.1 WBC Differential . Differential Comment Auto diff final PT 10.6 INR 1.0 APTT Sodium 131 L Potassium 3.6 Chloride 95 L Carbon Dioxide 28.4 Anion Gap 8 BUN 2 L Creatinine 0.84 Estimated GFR 74 L POC Glucose Random Glucose 80 Calcium 7.8 L Prot Corrected Calcium Total Bilirubin 0.2 GGT AST 20 ALT 15 Alkaline Phosphatase 77 Total Protein 6.5 Albumin 3.2 L Urine Color Urine Clarity Urine pH Ur Specific [place] Urine Protein Urine Glucose (UA) Urine Ketones Urine Occult Blood Urine Nitrate Urine Bilirubin Urine Urobilinogen Ur Leukocyte Esterase Urine WBC Ur Squamous Epith Cells Urine Bacteria Micro UA Comment Ur Microscopic Review Urine Culture Comments Nasal Screen MRSA (PCR) Salicylates Urine Opiates Screen Acetaminophen 90.9 H Ur Barbiturates Screen Ur Amphetamines Screen U Benzodiazepines Scrn Urine Cocaine Screen U Cannabinoids Screen Serum Alcohol 188 H Hepatitis A IgM Ab Hep Bs Antigen Hep B Core IgM Ab Hep C IgG Ab 11/02/17 11/02/17 11/02/17 19:40 19:40 19:40 WBC RBC Hgb Hct MCV MCH MCHC RDW Plt Count MPV Neut % (Auto) Lymph % (Auto) [place] % (Auto) Eos % (Auto) Baso % (Auto) Neut # (Auto) Lymph # (Auto) [place] # (Auto) Eos # (Auto) Baso # (Auto) WBC Differential Differential Comment PT INR APTT Sodium Potassium Chloride Carbon Dioxide Anion Gap BUN Creatinine Estimated GFR POC Glucose Random Glucose Calcium Prot Corrected Calcium Total Bilirubin GGT AST ALT Alkaline Phosphatase Total Protein Albumin Urine Color Yellow Urine Clarity Clear Urine pH 7.0 Ur Specific [place] 1.006 Urine Protein Negative Urine Glucose (UA) Negative Urine Ketones Negative Urine Occult Blood Negative Urine Nitrate Negative Urine Bilirubin Negative Urine Urobilinogen Less than 2 Ur Leukocyte Esterase Negative Urine WBC 1 Ur Squamous Epith Cells 1 Urine Bacteria Rare H Micro UA Comment Culture not ind Ur Microscopic Review Not Reportable Urine Culture Comments Culture not ind Nasal Screen MRSA (PCR) Salicylates Less than 1.7 L Urine Opiates Screen Neg Acetaminophen Ur Barbiturates Screen Neg Ur Amphetamines Screen Neg U Benzodiazepines Scrn Pos H Urine Cocaine Screen Neg U Cannabinoids Screen Neg Serum Alcohol Hepatitis A IgM Ab Hep Bs Antigen Hep B Core IgM Ab Hep C IgG Ab 11/02/17 11/03/17 11/03/17 21:59 01:10 02:25 WBC RBC Hgb Hct MCV MCH MCHC RDW Plt Count MPV Neut % (Auto) Lymph % (Auto) [place] % (Auto) Eos % (Auto) Baso % (Auto) Neut # (Auto) Lymph # (Auto) [place] # (Auto) Eos # (Auto) Baso # (Auto) WBC Differential Differential Comment PT INR APTT Sodium Potassium Chloride Carbon Dioxide Anion Gap BUN Creatinine Estimated GFR POC Glucose Random Glucose Calcium Prot Corrected Calcium Total Bilirubin GGT AST ALT Alkaline Phosphatase Total Protein Albumin Urine Color Urine Clarity Urine pH Ur Specific [place] Urine Protein Urine Glucose (UA) Urine Ketones Urine Occult Blood Urine Nitrate Urine Bilirubin Urine Urobilinogen Ur Leukocyte Esterase Urine WBC Ur Squamous Epith Cells Urine Bacteria Micro UA Comment Ur Microscopic Review Urine Culture Comments Nasal Screen MRSA (PCR) Not detected Salicylates Urine Opiates Screen Acetaminophen 277.3 H* Ur Barbiturates Screen Ur Amphetamines Screen U Benzodiazepines Scrn Urine Cocaine Screen U Cannabinoids Screen Serum Alcohol Hepatitis A IgM Ab Nonreactive Hep Bs Antigen Nonreactive Hep B Core IgM Ab Nonreactive Hep C IgG Ab Nonreactive 11/03/17 11/03/17 11/03/17 02:35 04:41 05:30 WBC RBC Hgb Hct MCV MCH MCHC RDW Plt Count MPV Neut % (Auto) Lymph % (Auto) [place] % (Auto) Eos % (Auto) Baso % (Auto) Neut # (Auto) Lymph # (Auto) [place] # (Auto) Eos # (Auto) Baso # (Auto) WBC Differential Differential Comment PT 15.3 H INR 1.5 APTT 28.2 Sodium Potassium Chloride Carbon Dioxide Anion Gap BUN Creatinine Estimated GFR POC Glucose 120 H 117 H Random Glucose Calcium Prot Corrected Calcium Total Bilirubin GGT AST ALT Alkaline Phosphatase Total Protein Albumin Urine Color Urine Clarity Urine pH Ur Specific [place] Urine Protein Urine Glucose (UA) Urine Ketones Urine Occult Blood Urine Nitrate Urine Bilirubin Urine Urobilinogen Ur Leukocyte Esterase Urine WBC Ur Squamous Epith Cells Urine Bacteria Micro UA Comment Ur Microscopic Review Urine Culture Comments Nasal Screen MRSA (PCR) Salicylates Urine Opiates Screen Acetaminophen Ur Barbiturates Screen Ur Amphetamines Screen U Benzodiazepines Scrn Urine Cocaine Screen U Cannabinoids Screen Serum Alcohol Hepatitis A IgM Ab Hep Bs Antigen Hep B Core IgM Ab Hep C IgG Ab 11/03/17 11/03/17 11/03/17 05:30 05:30 07:40 WBC RBC Hgb Hct MCV MCH MCHC RDW Plt Count MPV Neut % (Auto) Lymph % (Auto) [place] % (Auto) Eos % (Auto) Baso % (Auto) Neut # (Auto) Lymph # (Auto) [place] # (Auto) Eos # (Auto) Baso # (Auto) WBC Differential Differential Comment PT 16.7 H INR 1.7 APTT 48.0 H D Sodium 141 D Potassium 3.9 Chloride 109 H D Carbon Dioxide 22.2 Anion Gap 10 BUN 2 L Creatinine 0.65 Estimated GFR Greater than 89 POC Glucose Random Glucose 85 Calcium 7.1 L* Prot Corrected Calcium 7.9 L Total Bilirubin 0.4 GGT 69 H AST 30 ALT 29 Alkaline Phosphatase 69 Total Protein 5.6 L D Albumin 2.5 L D Urine Color Urine Clarity Urine pH Ur Specific [place] Urine Protein Urine Glucose (UA) Urine Ketones Urine Occult Blood Urine Nitrate Urine Bilirubin Urine Urobilinogen Ur Leukocyte Esterase Urine WBC Ur Squamous Epith Cells Urine Bacteria Micro UA Comment Ur Microscopic Review Urine Culture Comments Nasal Screen MRSA (PCR) Salicylates Less than 1.7 L Urine Opiates Screen Acetaminophen 151.9 H* Ur Barbiturates Screen Ur Amphetamines Screen U Benzodiazepines Scrn Urine Cocaine Screen U Cannabinoids Screen Serum Alcohol Hepatitis A IgM Ab Hep Bs Antigen Hep B Core IgM Ab Hep C IgG Ab 11/03/17 07:45 WBC RBC Hgb Hct MCV MCH MCHC RDW Plt Count MPV Neut % (Auto) Lymph % (Auto) [place] % (Auto) Eos % (Auto) Baso % (Auto) Neut # (Auto) Lymph # (Auto) [place] # (Auto) Eos # (Auto) Baso # (Auto) WBC Differential Differential Comment PT INR APTT Sodium Potassium Chloride Carbon Dioxide Anion Gap BUN Creatinine Estimated GFR POC Glucose 115 H Random Glucose Calcium Prot Corrected Calcium Total Bilirubin GGT AST ALT Alkaline Phosphatase Total Protein Albumin Urine Color Urine Clarity Urine pH Ur Specific [place] Urine Protein Urine Glucose (UA) Urine Ketones Urine Occult Blood Urine Nitrate Urine Bilirubin Urine Urobilinogen Ur Leukocyte Esterase Urine WBC Ur Squamous Epith Cells Urine Bacteria Micro UA Comment Ur Microscopic Review Urine Culture Comments Nasal Screen MRSA (PCR) Salicylates Urine Opiates Screen Acetaminophen Ur Barbiturates Screen Ur Amphetamines Screen U Benzodiazepines Scrn Urine Cocaine Screen U Cannabinoids Screen Serum Alcohol Hepatitis A IgM Ab Hep Bs Antigen Hep B Core IgM Ab Hep C IgG Ab <Milly Mckeno - Last Filed: 11/03/17 09:27> - Labs CBC & Chem 7: 11/02/17 19:40 11/03/17 07:40 Labs: Laboratory Results - last 24 hr 11/02/17 11/02/17 11/02/17 19:40 19:40 19:40 WBC 8.7 RBC 3.57 L Hgb 11.2 L Hct 32.9 L MCV 92.2 MCH 31.2 MCHC 33.9 RDW 16.0 Plt Count 287 D MPV 7.3 Neut % (Auto) 55.6 Lymph % (Auto) 31.7 [place] % (Auto) 5.4 Eos % (Auto) 6.3 H Baso % (Auto) 1.0 Neut # (Auto) 4.8 Lymph # (Auto) 2.8 [place] # (Auto) 0.5 Eos # (Auto) 0.5 H Baso # (Auto) 0.1 WBC Differential . Differential Comment Auto diff final PT 10.6 INR 1.0 APTT Sodium 131 L Potassium 3.6 Chloride 95 L Carbon Dioxide 28.4 Anion Gap 8 BUN 2 L Creatinine 0.84 Estimated GFR 74 L POC Glucose Random Glucose 80 Calcium 7.8 L Prot Corrected Calcium Total Bilirubin 0.2 GGT AST 20 ALT 15 Alkaline Phosphatase 77 Total Protein 6.5 Albumin 3.2 L Urine Color Urine Clarity Urine pH Ur Specific [place] Urine Protein Urine Glucose (UA) Urine Ketones Urine Occult Blood Urine Nitrate Urine Bilirubin Urine Urobilinogen Ur Leukocyte Esterase Urine WBC Ur Squamous Epith Cells Urine Bacteria Micro UA Comment Ur Microscopic Review Urine Culture Comments Nasal Screen MRSA (PCR) Salicylates Urine Opiates Screen Acetaminophen 90.9 H Ur Barbiturates Screen Ur Amphetamines Screen U Benzodiazepines Scrn Urine Cocaine Screen U Cannabinoids Screen Serum Alcohol 188 H Hepatitis A IgM Ab Hep Bs Antigen Hep B Core IgM Ab Hep C IgG Ab 11/02/17 11/02/17 11/02/17 19:40 19:40 19:40 WBC RBC Hgb Hct MCV MCH MCHC RDW Plt Count MPV Neut % (Auto) Lymph % (Auto) [place] % (Auto) Eos % (Auto) Baso % (Auto) Neut # (Auto) Lymph # (Auto) [place] # (Auto) Eos # (Auto) Baso # (Auto) WBC Differential Differential Comment PT INR APTT Sodium Potassium Chloride Carbon Dioxide Anion Gap BUN Creatinine Estimated GFR POC Glucose Random Glucose Calcium Prot Corrected Calcium Total Bilirubin GGT AST ALT Alkaline Phosphatase Total Protein Albumin Urine Color Yellow Urine Clarity Clear Urine pH 7.0 Ur Specific [place] 1.006 Urine Protein Negative Urine Glucose (UA) Negative Urine Ketones Negative Urine Occult Blood Negative Urine Nitrate Negative Urine Bilirubin Negative Urine Urobilinogen Less than 2 Ur Leukocyte Esterase Negative Urine WBC 1 Ur Squamous Epith Cells 1 Urine Bacteria Rare H Micro UA Comment Culture not ind Ur Microscopic Review Not Reportable Urine Culture Comments Culture not ind Nasal Screen MRSA (PCR) Salicylates Less than 1.7 L Urine Opiates Screen Neg Acetaminophen Ur Barbiturates Screen Neg Ur Amphetamines Screen Neg U Benzodiazepines Scrn Pos H Urine Cocaine Screen Neg U Cannabinoids Screen Neg Serum Alcohol Hepatitis A IgM Ab Hep Bs Antigen Hep B Core IgM Ab Hep C IgG Ab 11/02/17 11/03/17 11/03/17 21:59 01:10 02:25 WBC RBC Hgb Hct MCV MCH MCHC RDW Plt Count MPV Neut % (Auto) Lymph % (Auto) [place] % (Auto) Eos % (Auto) Baso % (Auto) Neut # (Auto) Lymph # (Auto) [place] # (Auto) Eos # (Auto) Baso # (Auto) WBC Differential Differential Comment PT INR APTT Sodium Potassium Chloride Carbon Dioxide Anion Gap BUN Creatinine Estimated GFR POC Glucose Random Glucose Calcium Prot Corrected Calcium Total Bilirubin GGT AST ALT Alkaline Phosphatase Total Protein Albumin Urine Color Urine Clarity Urine pH Ur Specific [place] Urine Protein Urine Glucose (UA) Urine Ketones Urine Occult Blood Urine Nitrate Urine Bilirubin Urine Urobilinogen Ur Leukocyte Esterase Urine WBC Ur Squamous Epith Cells Urine Bacteria Micro UA Comment Ur Microscopic Review Urine Culture Comments Nasal Screen MRSA (PCR) Not detected Salicylates Urine Opiates Screen Acetaminophen 277.3 H* Ur Barbiturates Screen Ur Amphetamines Screen U Benzodiazepines Scrn Urine Cocaine Screen U Cannabinoids Screen Serum Alcohol Hepatitis A IgM Ab Nonreactive Hep Bs Antigen Nonreactive Hep B Core IgM Ab Nonreactive Hep C IgG Ab Nonreactive 11/03/17 11/03/17 11/03/17 02:35 04:41 05:30 WBC RBC Hgb Hct MCV MCH MCHC RDW Plt Count MPV Neut % (Auto) Lymph % (Auto) Mccracken % (Auto) Eos % (Auto) Baso % (Auto) Neut # (Auto) Lymph # (Auto) M[place]racken # (Auto) Eos # (Auto) Baso # (Auto) WBC Differential Differential Comment PT 15.3 H INR 1.5 APTT 28.2 Sodium Potassium Chloride Carbon Dioxide Anion Gap BUN Creatinine Estimated GFR POC Glucose 120 H 117 H Random Glucose Calcium Prot Corrected Calcium Total Bilirubin GGT AST ALT Alkaline Phosphatase Total Protein Albumin Urine Color Urine Clarity Urine pH Ur Specific [place] Urine Protein Urine Glucose (UA) Urine Ketones Urine Occult Blood Urine Nitrate Urine Bilirubin Urine Urobilinogen Ur Leukocyte Esterase Urine WBC Ur Squamous Epith Cells Urine Bacteria Micro UA Comment Ur Microscopic Review Urine Culture Comments Nasal Screen MRSA (PCR) Salicylates Urine Opiates Screen Acetaminophen Ur Barbiturates Screen Ur Amphetamines Screen U Benzodiazepines Scrn Urine Cocaine Screen U Cannabinoids Screen Serum Alcohol Hepatitis A IgM Ab Hep Bs Antigen Hep B Core IgM Ab Hep C IgG Ab 11/03/17 11/03/17 11/03/17 05:30 05:30 07:40 WBC RBC Hgb Hct MCV MCH MCHC RDW Plt Count MPV Neut % (Auto) Lymph % (Auto) Mccracken % (Auto) Eos % (Auto) Baso % (Auto) Neut # (Auto) Lymph # (Auto) Mccracken # (Auto) Eos # (Auto) Baso # (Auto) WBC Differential Differential Comment PT 16.7 H INR 1.7 APTT 48.0 H D Sodium 141 D Potassium 3.9 Chloride 109 H D Carbon Dioxide 22.2 Anion Gap 10 BUN 2 L Creatinine 0.65 Estimated GFR Greater than 89 POC Glucose Random Glucose 85 Calcium 7.1 L* Prot Corrected Calcium 7.9 L Total Bilirubin 0.4 GGT 69 H AST 30 ALT 29 Alkaline Phosphatase 69 Total Protein 5.6 L D Albumin 2.5 L D Urine Color Urine Clarity Urine pH Ur Specific [place] Urine Protein Urine Glucose (UA) Urine Ketones Urine Occult Blood Urine Nitrate Urine Bilirubin Urine Urobilinogen Ur Leukocyte Esterase Urine WBC Ur Squamous Epith Cells Urine Bacteria Micro UA Comment Ur Microscopic Review Urine Culture Comments Nasal Screen MRSA (PCR) Salicylates Less than 1.7 L Urine Opiates Screen Acetaminophen 151.9 H* Ur Barbiturates Screen Ur Amphetamines Screen U Benzodiazepines Scrn Urine Cocaine Screen U Cannabinoids Screen Serum Alcohol Hepatitis A IgM Ab Hep Bs Antigen Hep B Core IgM Ab Hep C IgG Ab 11/03/17 11/03/17 07:40 07:45 WBC RBC Hgb Hct MCV MCH MCHC RDW Plt Count MPV Neut % (Auto) Lymph % (Auto) Mccracken % (Auto) Eos % (Auto) Baso % (Auto) Neut # (Auto) Lymph # (Auto) M[place]racken # (Auto) Eos # (Auto) Baso # (Auto) WBC Differential Differential Comment PT INR APTT Sodium 132 L Potassium 3.9 Chloride 97 L D Carbon Dioxide 23.4 Anion Gap 12 BUN 2 L Creatinine 0.82 Estimated GFR 76 L POC Glucose 115 H Random Glucose 411 H D Calcium 6.9 L* Prot Corrected Calcium 7.6 L Total Bilirubin 0.4 GGT AST 31 ALT 25 Alkaline Phosphatase 73 Total Protein 5.8 L Albumin 2.6 L Urine Color Urine Clarity Urine pH Ur Specific [place] Urine Protein Urine Glucose (UA) Urine Ketones Urine Occult Blood Urine Nitrate Urine Bilirubin Urine Urobilinogen Ur Leukocyte Esterase Urine WBC Ur Squamous Epith Cells Urine Bacteria Micro UA Comment Ur Microscopic Review Urine Culture Comments Nasal Screen MRSA (PCR) Salicylates Urine Opiates Screen Acetaminophen 105.4 H Ur Barbiturates Screen Ur Amphetamines Screen U Benzodiazepines Scrn Urine Cocaine Screen U Cannabinoids Screen Serum Alcohol Hepatitis A IgM Ab Hep Bs Antigen Hep B Core IgM Ab Hep C IgG Ab - Imaging Impressions Liver Ultrasound 11/03/17 00:00 CONCLUSION: 1. Mild gallbladder wall thickening with pericholecystic fluid. In the appropriate clinical setting this could represent cholecystitis. There is some sludge in the dependent portion of the gallbladder. 2. There is a trace amount of free fluid adjacent to the spleen. 3. There is increased echogenicity of the right kidney this can be seen with underlying medical renal disease. <Analilia Javed - Last Filed: 11/03/17 11:26> Assessment and Plan - Plan Assessment: - Tylenol overdose- reports taking 20 tablets of Tylenol at about 5pm yesterday in a suicidal attempt. Poison control contacted. Pt received Acetylcysteine per protocol. LFTs remain WNL. Coagulopathy is noted (INR 1.7) Pt does have known underlying liver disease, states fatty liver secondary to ETOH abuse. - R sided abdominal pain, intermittent, sharp, states worse with meals, does not notice that specific foods are triggers. Has been going on for over 2 weeks. Associated with nausea , no unintentional emesis (She is bulimic and does make herself vomit). Of note, pt has been taking multiple Ibuprofen daily for stomach pains. Liver US --> Mild gallbladder wall thickening with pericholecystic fluid. In the appropriate clinical setting this could represent cholecystitis. There is some sludge in the dependent portion of the gallbladder. There is a trace amount of free fluid adjacent to the spleen. - Constipation- takes Dulcolax on a daily basis. Denies hematochezia and melena Plan: Monitor LFTs Monitor coagulopathy Monitor for ETOH withdraw Ammonia level Lactulose HIDA scan If negative, may need EGD Continue supportive care Further recommendations to follow Pt has been seen and examined by myself and Dr. Javed and this note is written on his behalf <Milly Mckeon - Last Filed: 11/03/17 09:27> - Plan Seen and examined with RIPENING ROOM HAND, mucomyst protocol. HIDA ordered. possible egd. Monitor labs. Thank you The exam, history, and the medical decision-making described in the above note were completed with the assistance of the mid-level provider. I reviewed and agree with the findings presented. I attest that I had a [id number] encounter with the patient on the same day, and personally performed and documented my assessment and findings in the medical record. <Analilia Javed - Last Filed: 11/03/17 11:26>
[2017-11-03] MEDS: Morphine Sulfate Inj 2 MG/ML Vial IV.PUSH PRN ×2 (10:30→16:36)
[2017-11-03] MEDS ORDERED: Sincalide Inj 5 MCG Vial ONE (14:03)
[2017-11-03] MEDS: Multivitamin Inj 10 ML, Thiamine Inj 100 MG, Folic Acid Inj 1 MG in Sodium Chlor 0.9% I... IV.SIG SCH (14:13)
--- NOTE | 2017-11-03 14:57 | NM ---
EXAM DATE: 11/03/2017 12:17 PM EDT AGE/SEX: 42 years / Female INDICATIONS: Abdominal pain. CLINICAL DATA: This is the patient's initial encounter. Patient reports that signs and symptoms have been present for 1 day and indicates a pain score of 3/10. MEDICAL/SURGICAL HISTORY: Chronic obstructive pulmonary disease. Pancreatitis. Alcohol abuse. None. COMPARISON: No prior exams available for comparison. DOSE: 4.2 mCi Tc-99m mebrofenin i.v. Medication: 0.8 mcg Cholecystokinin IV No symptomatic response Cholecystokinin was administered by slow infusion over 8 minutes beginning at 65 minutes. TECHNIQUE: Following the intravenous administration of radiotracer, dynamic sequential images were pe rformed with continuous acquisition. Time-activity curves were generated. FINDINGS: Hepatic Kinetics: Normal uptake and excretion Biliary Clearance: Activity is first seen in the extrahepatic biliary system at 10 minutes. There is normal excretion into the small bowel. Gallbladder: Activity is first seen in the gallbladder at 15 minutes. Post-CCK: After CCK administration, there is emptying of the gallbladder with a greater than 70% ejec tion fraction. Common bile duct kinetics are normal and there is no evidence of biliary obstruction. No symptomatic response after cholecystokinin infusion. Biliary-Enteric Reflux: None observed. CONCLUSION: 1. Negative examination. No evidence for cystic duct or biliary ductal obstruction. Electronically signed by: Rio Yost MD 11/03/2017 2:56 PM EDT
--- NOTE | 2017-11-03 16:22 | P.CONPSY ---
Provisional Diagnosis Admission Date: November 03, 2017 00:47 Coats I.: Bipolar disorder, current episode depressive vs alcohol induced mood disorder, history of depression and anxiety, alcohol use disorder Coats II.: Unspecified personality disorder, cluster B traits, r/o borderline personality disorder Coats III.: COPD, Tylenol overdose History of Present Illness Service: Critical care Primary Care Provider: No Primary Care Physician Family Provider: No Primary Care Physician History of Present Illness: The patient is a 42-year-old woman, domiciled with her fianc in [facility], mother of a 14 years old daughter, unemployed, well known by the service, with a psychiatric history of bipolar disorder, alcohol use disorder, eating disorder, borderline personality disorder, anxiety, previous psychiatric hospitalizations, last hospitalization was here in [place] on September 2017 under the care of Dr. Navas with a Tylenol overdose, documentation reviewed, multiple suicide attempts, history of self cutting behavior without SI, established outpatient care in [facility], she is on trazodone 250 mg, Prozac 40 mg, Latuda 20 mg, prescribed by nurse practitioners, medical history of COPD, who is presenting to the hospital following an overdose of Tylenol with suicidal intention. She stated she took 2500 mg tylenol. She has complaints of right upper quadrant pain and nausea. She was initially hypotensive and received 4 L crystalloid infusion which improved her blood pressure. Her Tylenol level is 277. She was started on N-acetylcysteine. On my evaluation, she is very sad and will not say much. She says she hurts. She states she was trying to kill herself. The remainder of the review of systems is negative other than right upper quadrant abdominal pain, nausea, and suicidal ideations. She is Leroy acted. On the evaluation the patient was calm, cooperative and pleasant. The patient reports that she overdosed with Tylenol while she was intoxicated with alcohol, no necessary to commit suicide, but to "disappear for some minutes and forget my problem". The patient reports that she has been diagnosed with bipolar disorder, she has been taking her medications prescribed by [facility], but at the same time she has been persistently taking alcohol every day. She has just completed a detox/rehab about 3 weeks ago in [facility], but she immediately relapsed in alcohol. She takes anywhere from 5-6 drinks per day. She reports that she has history of alcohol withdrawal and DTs. She reports that the reason she is drinking is to fight her depression and anxiety, she reports that in the last year she has been feeling increasingly hopeless, helpless, worthless in the context of lack of capacity to work, separation from her daughter. At this moment the patient denies suicidal enemas ideation, she denies visual and auditory hallucinations, she is logical, coherent and relevant, which she expressed understanding of the need of a psychiatric admission for stabilization of her depression. The patient was able to contract for safety in the hospital. No loosening of associations, no ideas of reference, no paranoia, no agitation, no fluctuation of consciousness were elicited during this evaluation. The patient denies the use illegal drugs. PPHx: psychiatric history of bipolar disorder, alcohol use disorder, eating disorder, borderline personality disorder, anxiety, previous psychiatric hospitalizations, last hospitalization was here in [place] on September 2017 under the care of Dr. Navas with a Tylenol overdose, documentation reviewed, multiple suicide attempts, history of self cutting behavior without SI, established outpatient care in [facility], she is on trazodone 250 mg, Prozac 40 mg, Latuda 20 mg, prescribed by nurse practitioners PMHx: COPD, history of DTs substance Hx: Patient denies the use of illegal drug She takes 5-6 drinks per day, she was recently discharged from [facility] detox/rehab Family Hx: Her mother had history of bipolar disorder social Hx: The patient was born and raised in [place], she lives in [facility] with her [facility], she has a 14 years old daughter, she is 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 Review of Systems All other systems reviewed negative except as stated in HPI Psychiatric: Reports depression, Reports hopelessness, Reports mood swings, Reports thoughts of hurting/killing yourself PMFSH - History History Provided By: Patient - Medical History Medical History: Medical History (Last Reviewed 11/03/17 @ 08:40 by Cori Desai) Anorexia Anxiety Bulimia COPD (chronic obstructive pulmonary disease) GERD (gastroesophageal reflux disease) Gastric ulcer Major depression Pancreatitis Pneumonia - Surgical History Surgical History: Surgical History (Last Reviewed 11/03/17 @ 08:40 by Cori Desai) No history of previous surgery - Family History Family History: Family History (Last Reviewed 11/03/17 @ 01:20 by Osiel Flores MD) Other Hypertension - Tobacco History Second Hand Smoke Exposure: Yes Tobacco Use In Past 30 Days: Yes Smoking Status: Current every day smoker Tobacco Type: Cigarettes - Alcohol History How Often Do You Have a Drink Containing Alcohol: 4 or more times a week - Substance Use History Substance History: Active Abuse - Substance Use Type Alcohol Status: Active Route Used: By Mouth Reason for Use: Calm Down, Feels Good - Travel History Recent Travel in the [place] Within the Last 8 Weeks: No Recent Travel Out of the Country Within the Last 8 Weeks: No - Immunization History Tetanus Immunization: <5 Years Hx Influenza Vaccine This Season: No Medications and Allergies Active Medications: Active Medications Albuterol (Duoneb Neb (Prn)) 1 ampul NEB Q2HR NEB PRN PRN Reason: WHEEZING Chlorhexidine Gluconate (Chlorhexidine 2% Cloth) 3 pack TOPICAL DAILY@0400 PRN PRN Reason: Extra cloth needed Stop: 11/08/17 03:59 Chlorhexidine Gluconate (Chlorhexidine 2% Cloth) 3 pack TOPICAL DAILY@0400 JANAY Stop: 11/08/17 03:59 Last Admin: 11/03/17 03:18 Dose: 3 pack Sodium Chloride (Ns Inj) 1,000 mls @ 0 mls/hr IV.SIG BOLUS JANAY Last Infusion: 11/03/17 01:01 Dose: Infused Sodium Chloride (Ns Inj) 1,000 mls @ 0 mls/hr IV.SIG BOLUS JANAY Last Infusion: 11/03/17 01:01 Dose: Infused Magnesium Sulfate 4 gm/ Sodium (Chloride) 100 mls @ 50 mls/hr IV.SIG UNSCH PRN PRN Reason: For Magnesium 0.9 - 1.1 mg/dL Magnesium Sulfate 2 gm/ Sodium (Chloride) 100 mls @ 50 mls/hr IV.SIG UNSCH PRN PRN Reason: For Magnesium 1.2 - 1.6 mg/dL Sodium Chloride (Ns Inj) 1,000 mls @ 84 mls/hr IV.CONT .[id number] JANAY Last Admin: 11/03/17 14:13 Dose: 84 mls/hr Potassium Chloride (Kcl 40 Meq Premix Inj) 40 meq in 100 mls @ 25 mls/hr IV.SIG Q4H PRN PRN Reason: For Potassium 2.8 - 3.2 mEq/L Potassium Chloride (Kcl 20 Meq Premix Inj) 20 meq in 100 mls @ 50 mls/hr IV.SIG Q2H PRN PRN Reason: For Potassium 3.3 - 3.5 mEq/L Potassium Chloride (Kcl 40 Meq Premix Inj) 40 meq in 100 mls @ 25 mls/hr IV.SIG UNSCH PRN PRN Reason: For Potassium 3.3 - 3.5 mEq/L Potassium Chloride (Kcl 20 Meq Premix Inj) 20 meq in 100 mls @ 50 mls/hr IV.SIG Q2H PRN PRN Reason: For Potassium 2.8 - 3.2 mEq/L Potassium Phosphate 30 mmol/ (Sodium Chloride) 260 mls @ 42 mls/hr IV.SIG UNSCH PRN PRN Reason: SEE LABEL COMMENTS Sodium Phosphate 30 mmol/ (Sodium Chloride) 260 mls @ 42 mls/hr IV.SIG UNSCH PRN PRN Reason: For Phosphorus < 2.5 mg/dL Multivitamins 10 ml/ Thiamine HCl 100 mg/ Folic Acid 1 mg/Sodium Chloride 511.2 mls @ 125 mls/hr IV.SIG Q24H JANAY Stop: 11/05/17 16:06 Last Admin: 11/03/17 14:13 Dose: 125 mls/hr Lactulose (Lactulose Liq) 30 ml PO BID JANAY Last Admin: 11/03/17 10:59 Dose: Not Given Lorazepam (Ativan Inj) 1 mg IV.PUSH Q2H PRN PRN Reason: WITHDRAWAL Magnesium Oxide (Mag-Ox) 800 mg PO UNSCH PRN PRN Reason: For Magnesium 1.2 - 1.6 mg/dL Ondansetron HCl (Zofran Inj) 4 mg IV.PUSH Q6H PRN PRN Reason: NAUSEA OR VOMITING Last Admin: 11/03/17 15:28 Dose: 4 mg Pantoprazole Sodium (Protonix Inj) 40 mg IV.PUSH Q24H JANAY Last Admin: 11/03/17 02:44 Dose: Not Given Potassium Bicarb/Potassium Chloride (K-Lyte Cl Eff) 50 meq PO UNSCH PRN PRN Reason: For Potassium 3.3 - 3.5 mEq/L Potassium Phosphate (K-Phos Original) 2,000 mg PO Q4H PRN PRN Reason: Phosphorus Less Than 2.5 mg/dL Potassium Phosphate (K-Phos Original) 2,000 mg PO UNSCH PRN PRN Reason: SEE LABEL COMMENTS Sodium Chloride (Ns Flush) 2 ml IV.FLUSH UNSCH PRN PRN Reason: FLUSH AFTER USING IV ACCESS Allergies Allergy/AdvReac Type Severity Reaction Status Date / Time lithium Allergy Severe Seizures Verified 11/02/17 18:56 Home Medications Medication Instructions Recorded Confirmed Type fluoxetine 40 mg PO DAILY 10/06/17 11/02/17 History gabapentin 300 mg PO TID 11/02/17 11/02/17 History omeprazole magnesium [Prilosec] 40 mg PO BID 11/02/17 11/02/17 History trazodone 250 mg PO DAILY 11/02/17 11/02/17 History Exam Vital signs: Vital Signs 11/02/17 18:41 11/02/17 18:46 11/02/17 18:58 Temperature 98.1 F 98.1 F Pulse Rate 92 H 92 H 82 Respiratory Rate 18 16 16 Blood Pressure 99/56 L 99/56 L 93/57 L Pulse Oximetry 99 99 99 11/02/17 19:50 11/02/17 20:29 11/02/17 21:12 Temperature Pulse Rate 85 86 Respiratory Rate 16 16 Blood Pressure 89/55 L 93/54 L Pulse Oximetry 99 98 100 11/02/17 23:00 11/02/17 23:50 11/03/17 00:35 Temperature Pulse Rate 80 82 81 Respiratory Rate 17 16 16 Blood Pressure 82/52 L 86/54 L 98/59 L Pulse Oximetry 97 96 100 11/03/17 01:12 11/03/17 02:15 11/03/17 02:21 Temperature Pulse Rate 80 81 Respiratory Rate 16 16 Blood Pressure 97/63 L 95/61 L Pulse Oximetry 95 95 97 11/03/17 02:30 11/03/17 03:00 11/03/17 04:00 Temperature 97.4 F L Pulse Rate 84 77 84 Respiratory Rate 14 16 33 H Blood Pressure 113/78 Pulse Oximetry 100 98 96 11/03/17 05:00 11/03/17 06:00 11/03/17 06:14 Temperature Pulse Rate 80 81 Respiratory Rate 20 25 H Blood Pressure Pulse Oximetry 98 98 98 11/03/17 07:00 11/03/17 07:44 11/03/17 08:00 Temperature Pulse Rate 71 79 73 Respiratory Rate 18 17 14 Blood Pressure 140/86 Pulse Oximetry 100 100 100 11/03/17 08:01 11/03/17 09:00 11/03/17 09:36 Temperature 98.7 F Pulse Rate 72 70 Respiratory Rate 20 16 Blood Pressure 133/82 158/91 H Pulse Oximetry 100 100 100 11/03/17 10:00 11/03/17 10:54 11/03/17 11:00 Temperature Pulse Rate 88 82 75 Respiratory Rate 31 H 25 H 19 Blood Pressure 135/79 119/77 Pulse Oximetry 97 97 94 L 11/03/17 12:00 11/03/17 15:08 11/03/17 15:11 Temperature Pulse Rate 74 97 H 64 Respiratory Rate 14 23 8 L Blood Pressure 152/90 H 158/70 H Pulse Oximetry 99 98 100 Intake & Output 11/02/17 11/03/17 11/03/17 18:59 06:59 18:59 Intake Total 4227.5 / 4227.5 1000 / 1000 Output Total 775 / 775 Balance 3452.5 / 3452.5 1000 / 1000 Weight 36.287 kg 40 kg Intake: IV 4227.5 / 4227.5 1000 / 1000 NS Inj 1,000 ML @ 84 mls/hr IV. 1000 / 1000 CONT .[id number] COUNT INCLUDES THE [facility] Rx#:[id number] Acetadote Inj 5,450 MG In D5W 227.5 / 227.5 Inj 200 ML @ 227.25 mls/hr IV. SIG ONCE ONE Rx#:[id number] NS Inj 1,000 ML @ Wide Open IV. 4000 / 4000 SIG BOLUS COUNT INCLUDES THE [facility] Rx#:[id number] Output: Urine 775 / 775 Other: # Voids 4 # Bowel Movements 0 Weight On Admission 40 kg Narrative: No tremors, no EPS, no psychomotor agitation or retardation, - Constitutional no acute distress - Routine HEENT Exam Head: Present: normocephalic, atraumatic Eye: Present: EOMI Mental Status Examination Appearance: Appropriate Consciousness: Alert Orientation: x4 Motor Activity: Normal gait Speech: Unremarkable Language: Adequate Fund of Knowledge: Adequate Attention and Concentration: Adequate Memory: Unremarkable Mood: Appropriate Affect: Appropriate Thought Process & Associations: Intact Thought Content: Appropriate Hallucination Type: None Delusion Type: None Suicidal Ideation: Yes Suicidal Plan: No Suicidal Intention: No Homicidal Ideation: No Homicidal Plan: No Homicidal Intention: No Insight: Poor Judgment: Poor Assessment and Plan - Assessment (1) Bipolar depression Code(s): F31.30 - Bipolar disorder, current episode depressed, mild or moderate severity, unspecified Status: Acute - Plan Plan: Estimated LOS: [] days On my psychiatric evaluation today I find a patient that is calm, cooperative, even pleasant, her mood and affect are no congruent with a situation. Patient continues to be minimizing symptomatology of depression, stating that she has tried to commit suicide because she was just intoxicated, but unable to explain how is this basically the third occasion that she overdosed lethally. This is a patient with a psychiatric history of bipolar disorder, personality disorder, irritable psychiatric hospitalizations, previous suicidal attempts, extensive self cutting behavior without SI, poor impulse control, poor coping skills, who usually treats herself with alcohol and does not follow psychiatric recommendations very well, and for this reason at this moment she has an elevated risk of danger to self and she needs to be admitted in psychiatry for stabilization and safety. Is important to clarify that this is the third highly little suicidal attempt of this patient in a period of 1 year. Tt this point is unclear to me if current presentation is secondary to a primary mood disorder decompensation or to her alcoholism, and other etiology of current presentation to have a my is a personality pathology, but more longitudinal observation is needed in order to complete the diagnosis. The patient would be transferred to psychiatry once medically stable. Continue CIWA protocol in the medical floor. I will restart trazodone 100 mg at bedtime to help with insomnia and depression. Collateral information is still pending. Brief supportive psychotherapy, motivation and psychoeducation provided Justification for Continued Inpatient Stay: Patient will be admitted in psychiatry.
[2017-11-03] MEDS ORDERED: Sodium Chloride 0.9% 2 ML Flush PRN IV.FLUSH (16:33)
[2017-11-03 18:59] LABS: Activated Partial Thrombo Time 34.3 sec (24.3-30.1); INR 1.3 Ratio; Prothrombin Time 13.4 sec (9.8-11.6)
[2017-11-03 19:22] LABS: Acetaminophen 15.2 mcg/mL (10.0-30.0); Alanine Aminotransferase 22 U/L (10-53); Albumin 2.3 g/dL (3.4-5.0); Alkaline Phosphatase 63 U/L (45-117); Anion Gap 11 meq/L (5-15); Aspartate Aminotransferase 30 U/L (15-37); Blood Urea Nitrogen 4 mg/dL (7-18); Carbon Dioxide 22.1 meq/L (21.0-32.0); Chloride 106 meq/L (98-107); Glomerular Filtration Rate Greater Than 89 mL/min (>89); Glucose,Random 95 mg/dL (74-106); Potassium 3.6 meq/L (3.5-5.1); Sodium 139 meq/L (136-145)
[2017-11-03] MEDS: Sodium Chloride 0.9% 2 ML Flush BID IV.FLUSH SCH (20:07)
--- NOTE | 2017-11-03 22:36 | ECG ---
Date Performed: 11/02/2017 Time Performed: 21:02:23 PTAGE: 42 years EKG: Sinus rhythm NONSPECIFIC T-WAVE ABNORMALITY BORDERLINE ECG PREVIOUS TRACING : 09/20/2017 08.48 Compared to previous tracing, T wave changes present DOCTOR: Brett Rosas Interpretating Date/Time 11/03/2017 22:35:19
[2017-11-04] MEDS: Pantoprazole Inj 40 MG Vial IV.PUSH SCH (00:03)
[2017-11-04] MEDS: Sod Chloride 0.9% Inj 1,000 ML IV.CONT SCH (00:03)
[2017-11-04 00:51] LABS: Activated Partial Thrombo Time 32.8 sec (24.3-30.1); INR 1.3 Ratio; Prothrombin Time 13.2 sec (9.8-11.6)
[2017-11-04 00:58] LABS: Albumin 2.1 g/dL (3.4-5.0); Calcium 7.3 mg/dL (8.5-10.1); Carbon Dioxide 23.1 meq/L (21.0-32.0); Potassium 3.3 meq/L (3.5-5.1)
[2017-11-04 00:59] LABS: Acetaminophen 7.5 mcg/mL (10.0-30.0); Total Protein 4.7 g/dL (6.4-8.2)
[2017-11-04] MEDS ORDERED: WATER IV.SIG ONE ×2 (03:00)
[2017-11-04] MEDS ORDERED: ACETYLCYSTEINE IV.SIG ONE ×2 (03:00)
[2017-11-04] MEDS ORDERED: DEXTROSE 5% IV.SIG ONE ×2 (03:00)
[2017-11-04] MEDS: Morphine Sulfate Inj 2 MG/ML Vial IV.PUSH PRN ×2 (03:07→10:48)
[2017-11-04] MEDS: Chlorhexidine Gluconate 2% 1 Pack (2 Cloths) TOPICAL SCH (04:27)
[2017-11-04 07:04] LABS: Baso # (Auto) 0.2 th/mm3 (0.0-0.2); Baso % (Auto) 2.1 % (0.0-2.0); Eos # (Auto) 0.5 th/mm3 (0.0-0.4); Eos % (Auto) 5.1 % (0.0-4.0); Hematocrit 29.7 % (35.0-46.0); Hemoglobin 10.1 gm/dL (11.6-15.3); Lymph # (Auto) 2.8 th/mm3 (1.0-4.8); Lymph % (Auto) 28.9 % (9.0-44.0); Mean Corpuscular Hemoglobin 31.3 pg (27.0-34.0); Mean Corpuscular Volume 92.3 fL (80.0-100.0); Mean Platelet Volume 7.3 fL (7.0-11.0); Mono # (Auto) 0.5 th/mm3 (0.0-0.9); Neut # (Auto) 5.7 th/mm3 (1.8-7.7); Neut % (Auto) 58.9 % (16.0-70.0); Platelet Count 274 th/mm3 (150-450); Red Blood Count 3.22 mil/mm3 (4.00-5.30); Red Cell Distribution Width 15.4 % (11.6-17.2); White Blood Count 9.7 th/mm3 (4.0-11.0)
[2017-11-04 07:05] LABS: Activated Partial Thrombo Time 31.4 sec (24.3-30.1); INR 1.2 Ratio; Prothrombin Time 12.5 sec (9.8-11.6)
[2017-11-04 07:18] LABS: Alanine Aminotransferase 29 U/L (10-53); Albumin 2.4 g/dL (3.4-5.0); Anion Gap 8 meq/L (5-15); Aspartate Aminotransferase 45 U/L (15-37); Blood Urea Nitrogen 2 mg/dL (7-18); Calcium 7.5 mg/dL (8.5-10.1); Carbon Dioxide 25.4 meq/L (21.0-32.0); Chloride 106 meq/L (98-107); Glomerular Filtration Rate 87 mL/min (>89); Glucose,Random 81 mg/dL (74-106); Potassium 3.3 meq/L (3.5-5.1); Sodium 139 meq/L (136-145)
[2017-11-04 07:19] LABS: Acetaminophen 4.1 mcg/mL (10.0-30.0); Alanine Aminotransferase 30 U/L (10-53); Albumin 2.5 g/dL (3.4-5.0); Anion Gap 6 meq/L (5-15); Aspartate Aminotransferase 44 U/L (15-37); Blood Urea Nitrogen 2 mg/dL (7-18); Calcium 7.5 mg/dL (8.5-10.1); Carbon Dioxide 25.7 meq/L (21.0-32.0); Chloride 107 meq/L (98-107); Glomerular Filtration Rate 88 mL/min (>89); Glucose,Random 83 mg/dL (74-106); Magnesium 1.4 mg/dL (1.5-2.5); Phosphorus 2.1 mg/dL (2.5-4.9); Potassium 3.3 meq/L (3.5-5.1); Sodium 139 meq/L (136-145)
[2017-11-04 07:20] LABS: Alkaline Phosphatase 69 U/L (45-117); Total Protein 5.3 g/dL (6.4-8.2)
[2017-11-04 07:22] LABS: Alkaline Phosphatase 70 U/L (45-117); Total Protein 5.4 g/dL (6.4-8.2)
[2017-11-04] MEDS: Sodium Chloride 0.9% 2 ML Flush BID IV.FLUSH SCH (08:10)
[2017-11-04] MEDS ORDERED: Lidocaine PF 1% Inj 5 ML Syringe OTHER ONE ×2 (09:20→15:39)
--- NOTE | 2017-11-04 09:29 | GIPROC ---
[facility] [address] [facility]. [facility], [address] EGD PROCEDURE REPORT EXAM DATE: 11/04/2017 PATIENT NAME: Dayami Orellana MR #: [id number] BIRTHDATE: 1975 ATTENDING: Analilia Javed MD ORDER #: [id number] ENTRY EXAMINER: Ritu Torres and Ya Carson STATUS: inpatient INDICATIONS: The patient is a 42 yr old female here for an EGD due to epigastric abdominal pain and abdominal pain in the right upper quadrant PROCEDURE PERFORMED: EGD w/ biopsy MEDICATIONS: None and Per Anesthesia. TOPICAL ANESTHETIC: CONSENT: The patient understands the risks and benefits of the procedure and understands that these risks include, but are not limited to: sedation, allergic reaction, infection, perforation and/or bleeding. Alternative means of evaluation and treatment include, among others: physical exam, x-rays, and/or surgical intervention. The patient elects to proceed with this endoscopic procedure. medical equipment was checked for proper function. Hand hygiene and appropriate measures for infection prevention was taken. After the risks, benefits and alternatives of the procedure were thoroughly explained, Informed consent was verified, confirmed and timeout was successfully executed by the treatment team. The patient was anesthetized with topical anesthesia and the Pentax [id number] endoscope was introduced through the mouth and advanced to the second portion of the duodenum. Retroflexed views revealed no abnormalities The gastroscope was then slowly withdrawn and removed. ESOPHAGUS: There was LA Class A esophagitis noted. A biopsy was performed using cold forceps. Sample sent for histology. STOMACH: There was erythematous moderate gastritis in the gastric antrum. A biopsy was performed using cold forceps. Sample sent for histology. DUODENUM: The duodenal mucosa appeared normal in the bulb and second portion of the duodenum. ADVERSE EVENTS: There were no complications. IMPRESSIONS: 1. There was LA Class A esophagitis noted; biopsy was performed 2. There was erythematous gastritis in the gastric antrum; biopsy was performed 3. Normal duodenal mucosa in the bulb and second portion of the duodenum 4. Retroflexed views revealed no abnormalities RECOMMENDATIONS: 1. Await biopsy results. Biopsy results will not be ready for 7-10 days. If you don't hear from us in two weeks, call our office for biopsy results. 2. Anti-reflux regimen 3. Continue PPI PATIENT CONDITION: stable DISPOSITION: Inpatient REPEAT EXAM: Return 1 year EGD pending biopsy results Analilia Javed MD eSigned: Analilia Javed MD 11/04/2017 9:29 AM cc: PATIENT NAME: ToryDayami maria MR#: [id number]
[2017-11-04 12:26] LABS: Activated Partial Thrombo Time 28.9 sec (24.3-30.1); INR 1.2 Ratio; Prothrombin Time 12.2 sec (9.8-11.6)
--- NOTE | 2017-11-04 12:28 | P.PN ---
Subjective Interval history: Nursing denies any deterioration since last night. Patient herself tolerated liquid intake today status post EGD. Patient says she still has abdominal pain. Denies nausea vomiting. Physical Exam Vital signs: Vital Signs 11/03/17 15:08 11/03/17 15:11 11/03/17 16:00 Temperature 98.0 F Pulse Rate 97 H 64 61 Respiratory Rate 23 8 L 14 Blood Pressure 158/70 H 160/92 H Pulse Oximetry 98 100 99 11/03/17 17:00 11/03/17 18:00 11/03/17 19:01 Temperature Pulse Rate 71 66 72 Respiratory Rate 17 17 24 Blood Pressure 156/84 H 154/93 H Pulse Oximetry 99 97 95 11/03/17 19:13 11/03/17 20:00 11/03/17 21:00 Temperature 98.4 F Pulse Rate 69 68 70 Respiratory Rate 31 H 18 21 Blood Pressure 141/90 H Pulse Oximetry 98 96 93 L 11/03/17 22:00 11/03/17 23:00 11/03/17 23:18 Temperature Pulse Rate 76 69 84 Respiratory Rate 24 21 19 Blood Pressure 122/64 Pulse Oximetry 93 L 95 95 11/04/17 00:00 11/04/17 00:12 11/04/17 01:00 Temperature 98.8 F Pulse Rate 70 74 Respiratory Rate 20 16 20 Blood Pressure Pulse Oximetry 93 L 95 11/04/17 02:00 11/04/17 03:00 11/04/17 03:57 Temperature Pulse Rate 73 76 75 Respiratory Rate 9 L 21 6 L Blood Pressure 148/93 H Pulse Oximetry 94 L 92 L 95 11/04/17 04:00 11/04/17 05:00 11/04/17 06:00 Temperature 98.1 F Pulse Rate 68 78 67 Respiratory Rate 9 L 14 19 Blood Pressure Pulse Oximetry 95 92 L 97 11/04/17 07:03 11/04/17 08:00 11/04/17 08:42 Temperature 98.3 F Pulse Rate 91 H 71 83 Respiratory Rate 23 18 Blood Pressure 152/68 H 139/89 Pulse Oximetry 96 11/04/17 09:18 11/04/17 09:21 11/04/17 09:24 Temperature Pulse Rate 69 72 82 Respiratory Rate Blood Pressure 164/100 H 139/85 Pulse Oximetry 100 100 100 11/04/17 09:38 11/04/17 09:43 11/04/17 09:45 Temperature 97.6 F Pulse Rate 84 84 81 Respiratory Rate 18 17 23 Blood Pressure 159/88 H 159/88 H 151/86 H Pulse Oximetry 96 96 11/04/17 09:48 11/04/17 09:51 11/04/17 09:54 Temperature Pulse Rate 67 71 Respiratory Rate 19 20 Blood Pressure 140/83 142/88 H 128/81 Pulse Oximetry 97 96 11/04/17 09:57 11/04/17 10:00 11/04/17 10:03 Temperature 97.6 F Pulse Rate 67 87 Respiratory Rate 18 33 H Blood Pressure 138/90 128/81 131/91 H Pulse Oximetry 97 93 L 11/04/17 10:07 11/04/17 10:09 11/04/17 10:12 Temperature Pulse Rate 80 79 71 Respiratory Rate 33 H 26 H 16 Blood Pressure 158/70 H 108/54 L 136/81 Pulse Oximetry 97 97 94 L 11/04/17 10:15 11/04/17 10:18 11/04/17 10:22 Temperature Pulse Rate 69 65 72 Respiratory Rate 17 21 17 Blood Pressure 141/82 H 129/86 141/89 H Pulse Oximetry 95 96 96 11/04/17 10:24 11/04/17 10:27 11/04/17 10:31 Temperature Pulse Rate 68 73 95 H Respiratory Rate 20 16 49 H Blood Pressure 136/86 138/85 128/85 Pulse Oximetry 97 97 87 L 11/04/17 10:33 11/04/17 10:36 11/04/17 10:42 Temperature Pulse Rate 89 88 77 Respiratory Rate 28 H 25 H 17 Blood Pressure 128/85 118/88 176/91 H Pulse Oximetry 94 L 91 L 98 11/04/17 10:45 11/04/17 10:52 11/04/17 11:00 Temperature Pulse Rate 65 91 H 83 Respiratory Rate 19 24 22 Blood Pressure 174/95 H 131/65 156/72 H Pulse Oximetry 97 85 L 97 Intake & Output 11/03/17 11/04/17 11/04/17 18:59 06:59 18:59 Intake Total 2119.2 / 2119.2 50 / 50 Balance 2119.2 / 2119.2 50 / 50 Weight 40 kg Intake: IV 2019. NS Inj 1,000 ML @ 84 mls/hr IV. 1000 / 1000 1000 / 1000 CONT .[id number] [facility] Rx#:[id number] MVI-12 Inj 10 ML Thiamine Inj 511.2 / 511.2 100 MG Folvite Inj 1 MG In NS Inj 500 ML @ 125 mls/hr IV.SIG Q24H [facility] Rx#:[id number] Oral 100 / 100 Anesthesia Amount 50 / 50 Other: # Voids 3 8 1 # Bowel Movements 0 0 Narrative: Mild abdomen is tender diffusely Clear lungs bilaterally, unlabored breathing No acute distress Results - Labs CBC & Chem 7: 11/04/17 06:15 11/04/17 11:36 Laboratory Results - last 24 hr 11/03/17 11/03/17 11/03/17 15:25 17:50 17:50 WBC RBC Hgb Hct MCV MCH MCHC RDW Plt Count MPV Neut % (Auto) Lymph % (Auto) [place] % (Auto) Eos % (Auto) Baso % (Auto) Neut # (Auto) Lymph # (Auto) [place] # (Auto) Eos # (Auto) Baso # (Auto) WBC Differential Differential Comment PT 13.4 H INR 1.3 APTT 34.3 H D Sodium 139 Potassium 3.6 Chloride 106 D Carbon Dioxide 22.1 Anion Gap 11 BUN 4 L Creatinine 0.64 Estimated GFR Greater than 89 POC Glucose 88 Random Glucose 95 D Calcium 7.0 L* Prot Corrected Calcium 8.1 L Phosphorus Magnesium Total Bilirubin 0.3 AST 30 ALT 22 Alkaline Phosphatase 63 Ammonia Total Protein 5.0 L D Albumin 2.3 L Acetaminophen 15.2 11/03/17 11/03/17 11/03/17 18:33 19:04 21:10 WBC RBC Hgb Hct MCV MCH MCHC RDW Plt Count MPV Neut % (Auto) Lymph % (Auto) [place] % (Auto) Eos % (Auto) Baso % (Auto) Neut # (Auto) Lymph # (Auto) [place] # (Auto) Eos # (Auto) Baso # (Auto) WBC Differential Differential Comment PT INR APTT Sodium Potassium Chloride Carbon Dioxide Anion Gap BUN Creatinine Estimated GFR POC Glucose 108 106 115 H Random Glucose Calcium Prot Corrected Calcium Phosphorus Magnesium Total Bilirubin AST ALT Alkaline Phosphatase Ammonia Total Protein Albumin Acetaminophen 11/03/17 11/03/17 11/03/17 23:18 23:55 23:55 WBC RBC Hgb Hct MCV MCH MCHC RDW Plt Count MPV Neut % (Auto) Lymph % (Auto) [place] % (Auto) Eos % (Auto) Baso % (Auto) Neut # (Auto) Lymph # (Auto) [place] # (Auto) Eos # (Auto) Baso # (Auto) WBC Differential Differential Comment PT 13.2 H INR 1.3 APTT 32.8 H Sodium 139 Potassium 3.3 L Chloride 108 H Carbon Dioxide 23.1 Anion Gap 8 BUN 3 L Creatinine 0.71 Estimated GFR 89 POC Glucose 122 H Random Glucose 99 Calcium 7.3 L* Prot Corrected Calcium 8.7 Phosphorus Magnesium Total Bilirubin 0.4 AST 37 ALT 23 Alkaline Phosphatase 60 Ammonia Total Protein 4.7 L Albumin 2.1 L Acetaminophen 7.5 L 11/04/17 11/04/17 11/04/17 02:31 06:15 06:15 WBC RBC Hgb Hct MCV MCH MCHC RDW Plt Count MPV Neut % (Auto) Lymph % (Auto) [place] % (Auto) Eos % (Auto) Baso % (Auto) Neut # (Auto) Lymph # (Auto) [place] # (Auto) Eos # (Auto) Baso # (Auto) WBC Differential Differential Comment PT 12.5 H INR 1.2 APTT 31.4 H Sodium 139 Potassium 3.3 L Chloride 107 Carbon Dioxide 25.7 Anion Gap 6 BUN 2 L Creatinine 0.72 Estimated GFR 88 L POC Glucose 86 Random Glucose 83 Calcium 7.5 L Prot Corrected Calcium Phosphorus 2.1 L Magnesium 1.4 L Total Bilirubin 0.4 AST 44 H ALT 30 Alkaline Phosphatase 70 Ammonia Total Protein 5.4 L D Albumin 2.5 L Acetaminophen 4.1 L 11/04/17 11/04/17 11/04/17 06:15 06:15 06:15 WBC 9.7 RBC 3.22 L Hgb 10.1 L Hct 29.7 L MCV 92.3 MCH 31.3 MCHC 34.0 RDW 15.4 Plt Count 274 MPV 7.3 Neut % (Auto) 58.9 Lymph % (Auto) 28.9 Carter % (Auto) 5.0 Eos % (Auto) 5.1 H Baso % (Auto) 2.1 H Neut # (Auto) 5.7 Lymph # (Auto) 2.8 Carter # (Auto) 0.5 Eos # (Auto) 0.5 H Baso # (Auto) 0.2 WBC Differential . Differential Comment Auto diff final PT INR APTT Sodium 139 Potassium 3.3 L Chloride 106 Carbon Dioxide 25.4 Anion Gap 8 BUN 2 L Creatinine 0.73 Estimated GFR 87 L POC Glucose Random Glucose 81 Calcium 7.5 L Prot Corrected Calcium Phosphorus Magnesium Total Bilirubin 0.4 AST 45 H ALT 29 Alkaline Phosphatase 69 Ammonia 11 Total Protein 5.3 L Albumin 2.4 L Acetaminophen 11/04/17 11/04/17 11/04/17 08:05 11:36 12:20 WBC RBC Hgb Hct MCV MCH MCHC RDW Plt Count MPV Neut % (Auto) Lymph % (Auto) Carter % (Auto) Eos % (Auto) Baso % (Auto) Neut # (Auto) Lymph # (Auto) Carter # (Auto) Eos # (Auto) Baso # (Auto) WBC Differential Differential Comment PT 12.2 H INR 1.2 APTT 28.9 Sodium Potassium Chloride Carbon Dioxide Anion Gap BUN Creatinine Estimated GFR POC Glucose 95 109 Random Glucose Calcium Prot Corrected Calcium Phosphorus Magnesium Total Bilirubin AST ALT Alkaline Phosphatase Ammonia Total Protein Albumin Acetaminophen - Imaging Impressions Bile Acid Absorption NM 11/03/17 00:00 CONCLUSION: 1. Negative examination. No evidence for cystic duct or biliary ductal obstruction. Assessment and Plan - Plan Assessment: 42-year-old female with suicidal ideations and intentional Tylenol overdose. Initially was admitted to ICU started aggressively on N- acetylcysteine. Showed significant acute hepatic failure with INR around 1.5. Is now status post EGD showing some esophagitis. INR is down to 1.2. Psychiatry is following, of justified for the patient to be admitted to psychiatry post medical stabilization for suicidal ideations and mood disorders. Patient tolerating p.o. intake. Patient has met maximal benefit from hospitalization is clinically stable for discharge to [facility] facility when she completes her last N-acetylcysteine dose.
[2017-11-04] MEDS: Multivitamin Inj 10 ML, Thiamine Inj 100 MG, Folic Acid Inj 1 MG in Sodium Chlor 0.9% I... IV.SIG SCH (12:46)
[2017-11-04 13:08] VITALS: BP 149/101; RESP 17; TEMP 98.4; O2SAT 99
[2017-11-04 13:14] LABS: Alkaline Phosphatase 73 U/L (45-117); Total Protein 5.9 g/dL (6.4-8.2)
[2017-11-04 13:16] LABS: Alanine Aminotransferase 34 U/L (10-53); Albumin 2.6 g/dL (3.4-5.0); Anion Gap 10 meq/L (5-15); Aspartate Aminotransferase 51 U/L (15-37); Blood Urea Nitrogen 2 mg/dL (7-18); Calcium 7.7 mg/dL (8.5-10.1); Carbon Dioxide 25.4 meq/L (21.0-32.0); Chloride 105 meq/L (98-107); Glomerular Filtration Rate 87 mL/min (>89); Glucose,Random 101 mg/dL (74-106); Potassium 3.8 meq/L (3.5-5.1); Sodium 140 meq/L (136-145)
[2017-11-04 14:28] VITALS: PULSE 84
== END 2017-11-04 15:40 ==
LOC: NEPE 18:39 → NEDA 11-03 00:47 → HIMC 11-03 02:20
PROVIDERS: ADMIT Hospitalist; ATTEND Hospitalist
PROC: PANENDO (2017-11-04 09:12)

== ENCOUNTER 2017-11-04 15:52 | Inpatient (IN) ==
[2017-11-04] MEDS ORDERED: Bisacodyl 10 MG Supp RECTAL PRN (20:32)
[2017-11-04] MEDS ORDERED: Aluminum/Magnesium/Simethacone Susp 30 ML UDC PO PRN (20:32)
[2017-11-04] MEDS ORDERED: Haloperidol Inj 5 MG/ML Ampul IV.PUSH PRN (20:34)
[2017-11-04] MEDS: Ibuprofen 600 MG Tablet PO SCH (22:17)
[2017-11-05] MEDS: LORazepam 1 MG Tablet PO PRN ×5 (00:55→21:13)
[2017-11-05 07:43] LABS: Baso # (Auto) 0.1 th/mm3 (0.0-0.2); Baso % (Auto) 0.3 % (0.0-2.0); Eos % (Auto) 0.1 % (0.0-4.0); Hematocrit 30.7 % (35.0-46.0); Hemoglobin 10.4 gm/dL (11.6-15.3); Lymph # (Auto) 1.1 th/mm3 (1.0-4.8); Lymph % (Auto) 5.3 % (9.0-44.0); Mean Corpuscular HGB Conc 33.8 % (32.0-36.0); Mean Corpuscular Hemoglobin 31.1 pg (27.0-34.0); Mean Corpuscular Volume 91.8 fL (80.0-100.0); Mean Platelet Volume 7.6 fL (7.0-11.0); Mono % (Auto) 4.7 % (0.0-8.0); Neut # (Auto) 18.6 th/mm3 (1.8-7.7); Neut % (Auto) 89.6 % (16.0-70.0); Platelet Count 261 th/mm3 (150-450); Red Blood Count 3.35 mil/mm3 (4.00-5.30); Red Cell Distribution Width 15.6 % (11.6-17.2); White Blood Count 20.8 th/mm3 (4.0-11.0)
[2017-11-05 08:05] LABS: Albumin 2.5 g/dL (3.4-5.0); Anion Gap 10 meq/L (5-15); Aspartate Aminotransferase 25 U/L (15-37); Blood Urea Nitrogen 1 mg/dL (7-18); Calcium 7.9 mg/dL (8.5-10.1); Chloride 98 meq/L (98-107); Cholesterol 124 mg/dL (120-200); Glomerular Filtration Rate 83 mL/min (>89); Glucose,Random 104 mg/dL (74-106); Potassium 3.8 meq/L (3.5-5.1); Sodium 133 meq/L (136-145); Triglycerides 42 mg/dL (42-150)
[2017-11-05 08:11] LABS: Alanine Aminotransferase 25 U/L (10-53); Alkaline Phosphatase 76 U/L (45-117); Chol/HDL Ratio 1.44 Ratio; HDL Cholesterol 85.6 mg/dL (40.0-60.0); LDL Cholesterol,Calculated 30 mg/dL (0-99); Total Protein 5.9 g/dL (6.4-8.2)
--- NOTE | 2017-11-05 11:21 | ECG ---
Date Performed: 11/05/2017 Time Performed: 09:35:33 PTAGE: 42 years EKG: Baseline artifact present Sinus rhythm NORMAL ECG Compared to prior electrocardiogram, Nonspecific T wave changes no longer present. . PREVIOUS TRACING : 11/02/2017 21.02 DOCTOR: Loyd Leyva Interpretating Date/Time 11/05/2017 11:19:38
[2017-11-05] MEDS: Ibuprofen 600 MG Tablet PO SCH ×3 (12:32→21:07)
[2017-11-05 13:58] LABS: Hemoglobin A1c 5.5 % (4.3-6.0)
--- NOTE | 2017-11-05 15:26 | P.PNGI ---
Subjective Interval history: Patient is dozing in the bed states still has some nausea and right upper quadrant discomfort but symptoms are gradually improving Physical Exam Vital signs: Vital Signs 11/04/17 18:00 11/05/17 05:36 Temperature 98.2 F 97.3 F L Pulse Rate 82 77 Respiratory Rate 15 Blood Pressure 132/85 105/60 Pulse Oximetry 95 97 Intake & Output 11/04/17 11/05/17 11/05/17 18:59 06:59 18:59 Intake Total 240 / 240 360 / 360 Balance 240 / 240 360 / 360 Weight 38.2 kg 38.1 kg Intake: Oral 240 / 240 360 / 360 Other: # Voids 1 Date of Last Bowel Movement 11/04/17 11/04/17 Weight On Admission 38.2 kg - Constitutional no acute distress, thin, cachectic - Routine HEENT Exam Head: Present: normocephalic (Pale) ENT: Present: mucous membranes dry - Routine Neck Exam Present: supple - Routine Respiratory Exam Present: accessory muscle use (No obvious shortness of breath) - Routine Cardiovascular Exam Present: RRR - Routine Abdominal Exam Present: soft (Flat, right upper quadrant discomfort mild to light palpation 4 out of 10) - Routine Skin Exam Present: pallor Results - Labs CBC & Chem 7: 11/05/17 06:52 11/05/17 06:52 Laboratory Results - last 24 hr 11/05/17 11/05/17 11/05/17 06:52 06:52 06:52 WBC 20.8 H RBC 3.35 L Hgb 10.4 L Hct 30.7 L MCV 91.8 MCH 31.1 MCHC 33.8 RDW 15.6 Plt Count 261 MPV 7.6 Neut % (Auto) 89.6 H Lymph % (Auto) 5.3 L [place] % (Auto) 4.7 Eos % (Auto) 0.1 Baso % (Auto) 0.3 Neut # (Auto) 18.6 H Lymph # (Auto) 1.1 [place] # (Auto) 1.0 H Eos # (Auto) 0.0 Baso # (Auto) 0.1 WBC Differential . Differential Comment Auto diff final Sodium 133 L Potassium 3.8 Chloride 98 Carbon Dioxide 25.0 Anion Gap 10 BUN 1 L Creatinine 0.76 Estimated GFR 83 L Random Glucose 104 Hemoglobin A1c 5.5 Calcium 7.9 L Total Bilirubin 0.4 AST 25 ALT 25 Alkaline Phosphatase 76 Total Protein 5.9 L Albumin 2.5 L Triglycerides 42 Cholesterol 124 LDL Cholesterol, Calc 30 HDL Cholesterol 85.6 H Cholesterol/HDL Ratio 1.44 TSH 2.010 Assessment and Plan - Plan Tylenol overdose Previous history of NSAID usage Abdominal pain predominantly right upper quadrant Nausea but no obvious vomiting History of bipolar disorder 11/05/2017 patient is resting in the bed and appears to be comfortable without any obvious grimace. Patient does note some nausea and some mild right upper quadrant discomfort but does state that she is feeling somewhat better. She does have some generalized fatigue noted current hemoglobin 10.4 no obvious rectal bleeding or hematemesis. States normal BM today brown soft stool. Status post EGD on 11/04/2017. Findings include LA Class A esophagitis, erythematous gastritis in the gastric antrum. Biopsies were taken of both areas Plan Diet as tolerated per attending Biopsies pending Discussed and warned against Tylenol and NSAID usage for her pain Anti-medics as needed Monitor labs PPI added Bowel regimen Supportive care Patient was seen per myself and Dr. Javed, note was written on his behalf
--- NOTE | 2017-11-05 15:30 | P.HPPSY ---
Provisional Diagnosis Admission Date: November 04, 2017 15:52 Competence Certification of Person's Competence To Provide Express and Informed Consent I have personally examined Dayami Orellana, a person being served at [facility] on, November 05, 2017 1523. Express and informed consent means consent voluntarily given in writing, by a competent person, after sufficient explanation and disclosure of the subject matter involved to enable the person to make a knowing and willful decision without any element of force, fraud, deceit, duress, or other form of constraint or coercion. This person is 18 years of age or older, is not now known to be incompetent to consent to treatment with a guardian advocate, and does not have a health care surrogate or proxy currently making medical treatment decisions. I have found this person to be one of the following: [X] Competent to provide express and informed consent, as defined above, for voluntary admission to this facility and is competent to provide express and informed consent for treatment. He/she has the consistent capacity to make well reasoned, willful, and knowing decisions concerning his or her medical or mental health treatment. The person fully and consistently understands the purpose of the admission for examination/placement and is fully capable of personally exercising all rights assured under [place] [] Incompetent to provide express and informed consent to voluntary admission, and this is incompetent to provide express and informed consent to treatment. The person must be transferred to involuntary status and a petition for a guardian advocate filed with the Circuit Court. [] Refusing to provide express and informed consent to voluntary admission but is competent to provide express and informed consent for treatment. The person must be discharged or transferred to involuntary status. Form shall be completed within 24 hours of a person's arrival at the receiving facility and filed in the clinical record of each person: 1. Admitted on a voluntary basis 2. Permitted to provide express and informed consent to his/her own treatment 3. Allowed to transfer from involuntary to voluntary status 4. Prior to permitting a person to consent to his or her own treatment after having been previously found incompetent to consent to treatment. History of Present Illness Capacity: Has capacity Chief Complaint: suicide attempt History of Present Illness: Patient is a 42-year-old female with a history of bipolar depression. She is also been diagnosed with anorexia anxiety disorder and PTSD. She has had multiple admissions through [place] with the last one being in September 2017. Today she is evaluated on the medical/surgical unit after an overdose on Tylenol yesterday. Patient says she had been abstinent from alcohol but began drinking and had 4-5 shots of liquor. Subsequently, she impulsively took 20 pills of Tylenol. She denies any recent stressors or events that may have led to this attempt. She describes her home medications trazodone 250 mg p.o. nightly, Prozac 40 mg daily, Latuda 40 mg daily, gabapentin 300 mg p.o. 3 times daily. Per history patient has a history of regular alcohol use. In the last couple weeks, patient admits to a daily depressed mood, low energy, and fleeting suicidal ideation. She denies any recent manic episodes. She denies auditory or visual hallucinations. She was admitted for similar reasons on her last admission. Past psych: ": psychiatric history of bipolar disorder, alcohol use disorder, eating disorder, borderline personality disorder, anxiety, previous psychiatric hospitalizations, last hospitalization here at [place] in 2017 under my care, four prior suicide attempts, history of self cutting behavior without SI, established outpatient care in [facility], " Past medical:COPD, history of DTs Past Famhx:"Mother with depression, Aunt with bipolar disorder, no suicides in the family. 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 This includes certification that hospital inpatient services are reasonable and necessary and in the case of services not specified as inpatient-only under 42 CFR 419.22(n), that they are appropriately provided as inpatient services in accordance to with the 2-midnight benchmark under 43 CFR 412.3(e) I certify that inpatient psychiatric hospital services are medically necessary. Evaluation and treatment and/or diagnostic testing are expected to improve the patient's condition. The patient needs on a daily basis, active treatment furnished directly by or requiring the supervision of inpatient psychiatric facility personnel. Estimated Total Length of Stay (Days): 7 Plans for Post Hospital Care: Not yet determined PMFSH - History History Provided By: Patient - Medical History Medical History: Medical History (Last Reviewed 11/05/17 @ 15:28 by Esteban Macario DO) Anorexia Anxiety Bulimia COPD (chronic obstructive pulmonary disease) GERD (gastroesophageal reflux disease) Gastric ulcer Major depression Pancreatitis Pneumonia - Surgical History Surgical History: Surgical History (Last Reviewed 11/05/17 @ 15:28 by Esteban Macario DO) No history of previous surgery - Family History Family History: Family History (Last Reviewed 11/05/17 @ 15:28 by Esteban Macario DO) Other Hypertension - Tobacco History Second Hand Smoke Exposure: Yes Tobacco Use In Past 30 Days: Yes Smoking Status: Heavy tobacco smoker Tobacco Type: Cigarettes - Alcohol History How Often Do You Have a Drink Containing Alcohol: 4 or more times a week - Substance Use History Substance History: Active Abuse - Substance Use Type Marijuana Status: Sustained Remission Route Used: Inhalation Frequency: weekly Reason for Use: Calm Down LSD, Mushrooms Status: Active Route Used: By Mouth Reason for Use: Calm Down - Immunization History Tetanus Immunization: >5 Years Hx Influenza Vaccine This Season: No Medications and Allergies Active Medications: Active Medications Al Hydrox/Mg Hydrox/Simethicone (Mag-Al Plus Susp Liq) 30 ml PO Q6H PRN PRN Reason: DYSPEPSIA Last Admin: 11/05/17 08:39 Dose: 30 ml Al Hydroxide/Mg Hydroxide (Milk Of Magnesia Liq) 30 ml PO Q12H PRN PRN Reason: Mild Constipation Bisacodyl (Dulcolax Supp) 10 mg RECTAL DAILY PRN PRN Reason: SEVERE CONSITIPATION Flumazenil (Romazecon Inj) 0.2 mg IV.PUSH Q1M PRN PRN Reason: OVERSEDATION Haloperidol Lactate (Haldol Inj) 1 mg IV.PUSH Q15M PRN PRN Reason: for severe agitation Ibuprofen (Motrin) 600 mg PO Q8HR JANAY Last Admin: 11/05/17 13:02 Dose: 600 mg Lactulose (Lactulose Liq) 30 ml PO DAILY PRN PRN Reason: SEVERE CONSITIPATION Lorazepam (Ativan) 1 mg PO Q4H PRN PRN Reason: for CIWA 8-10 Last Admin: 11/05/17 13:02 Dose: 1 mg Lorazepam (Ativan Inj) 2 mg IV.PUSH Q2H PRN PRN Reason: for CIWA 11-14 Lorazepam (Ativan Inj) 2 mg IV.PUSH Q1H PRN PRN Reason: for CIWA 15-20 Lorazepam (Ativan Inj) 2 mg IV.PUSH Q15M PRN PRN Reason: for CIWA > 20 Lorazepam (Ativan Inj) 1 mg IV.PUSH Q4H PRN PRN Reason: for CIWA 8-10 Last Admin: 11/04/17 21:06 Dose: 1 mg Lorazepam (Ativan) 2 mg PO Q2H PRN PRN Reason: for CIWA 11-14 Sennosides (Senokot) 17.2 mg PO Q12H PRN PRN Reason: Moderate Constipation Allergies Allergy/AdvReac Type Severity Reaction Status Date / Time lithium Allergy Severe Seizures Verified 11/02/17 18:56 Home Medications Medication Instructions Recorded Confirmed Type gabapentin 300 mg PO TID 11/02/17 11/04/17 History trazodone 300 mg PO HS 11/02/17 11/04/17 History Prozac 40 mg PO DAILY 11/04/17 11/04/17 History oxycodone-acetaminophen [Percocet] PRN 11/04/17 11/04/17 History pantoprazole [Protonix] 40 mg PO BID 11/04/17 11/04/17 History Results - Labs CBC & Chem 7: 11/05/17 06:52 11/05/17 06:52 Labs: Laboratory Results - last 24 hr 11/05/17 11/05/17 11/05/17 06:52 06:52 06:52 WBC 20.8 H RBC 3.35 L Hgb 10.4 L Hct 30.7 L MCV 91.8 MCH 31.1 MCHC 33.8 RDW 15.6 Plt Count 261 MPV 7.6 Neut % (Auto) 89.6 H Lymph % (Auto) 5.3 L [place] % (Auto) 4.7 Eos % (Auto) 0.1 Baso % (Auto) 0.3 Neut # (Auto) 18.6 H Lymph # (Auto) 1.1 [place] # (Auto) 1.0 H Eos # (Auto) 0.0 Baso # (Auto) 0.1 WBC Differential . Differential Comment Auto diff final Sodium 133 L Potassium 3.8 Chloride 98 Carbon Dioxide 25.0 Anion Gap 10 BUN 1 L Creatinine 0.76 Estimated GFR 83 L Random Glucose 104 Hemoglobin A1c 5.5 Calcium 7.9 L Total Bilirubin 0.4 AST 25 ALT 25 Alkaline Phosphatase 76 Total Protein 5.9 L Albumin 2.5 L Triglycerides 42 Cholesterol 124 LDL Cholesterol, Calc 30 HDL Cholesterol 85.6 H Cholesterol/HDL Ratio 1.44 TSH 2.010 Exam Vital signs: Vital Signs 11/04/17 18:00 11/05/17 05:36 Temperature 98.2 F 97.3 F L Pulse Rate 82 77 Respiratory Rate 15 Blood Pressure 132/85 105/60 Pulse Oximetry 95 97 Intake & Output 11/04/17 11/05/17 11/05/17 18:59 06:59 18:59 Intake Total 240 / 240 360 / 360 Balance 240 / 240 360 / 360 Weight 38.2 kg 38.1 kg Intake: Oral 240 / 240 360 / 360 Other: # Voids 1 Date of Last Bowel Movement 11/04/17 11/04/17 Weight On Admission 38.2 kg Mental Status Examination Appearance: Disheveled Consciousness: Alert Orientation: x4 Motor Activity: Normal gait Speech: Slow Language: Adequate Fund of Knowledge: Adequate Attention and Concentration: Adequate Mood: Sad Affect: Blunt Thought Process & Associations: Intact Thought Content: Appropriate Hallucination Type: None Delusion Type: None Suicidal Ideation: No Suicidal Plan: No Suicidal Intention: No Homicidal Ideation: No Homicidal Plan: No Homicidal Intention: No Insight: Adequate Judgment: Impulsive Assessment and Plan - Assessment (1) Bipolar disorder, current episode depressed, mild or moderate severity, unspecified Code(s): F31.30 - Bipolar disorder, current episode depressed, mild or moderate severity, unspecified Status: Acute (2) Alcohol dependence with alcohol-induced mood disorder Code(s): F10.24 - Alcohol dependence with alcohol-induced mood disorder Status : Acute - Plan Plan: Estimated LOS: [] days Patient may sign voluntary. Patient may restart medication after she is medically cleared to do so. Continue medical treatment as indicated. Supportive therapy provided and safety plan reviewed Justification for Continued Inpatient Stay: Patient would decompensate in a less restrictive setting
[2017-11-05] MEDS ORDERED: Aspirin 325 MG Tablet PO ONE (23:15)
[2017-11-06] MEDS: LORazepam 1 MG Tablet PO PRN ×2 (01:50→08:14)
[2017-11-06] MEDS: Ibuprofen 600 MG Tablet PO SCH ×2 (05:04→15:17)
--- NOTE | 2017-11-06 12:01 | P.CON ---
History of Present Illness Service: [facility] Consult date: 11/06/17 Requesting Physician: Esteban Macario Reason for Consult: Fever, increase HR Primary Care Provider: UNKNOWN Chief Complaint: "pain, I don't feel good" History of Present Illness: Patient is a 42-year-old female with a history of major depression disorder, polysubstance abuse, and prior suicidal ideations who presented after intentional Tylenol overdose. She was admitted to critical care unit for aggressive treatment of acetylcysteine. She is now admitted to medical psych unit for further evaluation. Consulted for assistance for fever, increasing pain, increasing heart rate. Patient seen and examined today. Notable shaking somewhat chills but possible withdrawal as patient states that she has been drinking prior to coming to the hospital has stated to ICU for approximately 1-2 days only. States that she drinks 5 many bottles of vodka every day and Tylenol overdose. Complaints of chest pain right side states that she had a fall. Painful to palpate. /10, aggravated by palpation, relieved by pain meds, requesting for stronger pain medication. Patient states she came back to the hospital because she cannot deal with her depression and outpatient and continues to drink and took Tylenol. Complaints of nausea no vomiting. Reports poor appetite. Denies SOB / dyspnea. Denies chest pain, palpitations, headaches, dizziness. Denies dysuria. Review of Systems All other systems reviewed negative except as stated in HPI PMFSH - History History Provided By: Patient - Medical History Medical History: Medical History (Last Reviewed 11/06/17 @ 13:45 by TERESITA Torres) Anorexia Anxiety Bulimia COPD (chronic obstructive pulmonary disease) GERD (gastroesophageal reflux disease) Gastric ulcer Major depression Pancreatitis Pneumonia - Surgical History Surgical History: Surgical History (Last Reviewed 11/06/17 @ 13:45 by TERESITA Torres) No history of previous surgery - Family History Family History: Family History (Last Reviewed 11/06/17 @ 13:45 by TERESITA Torres) Other Hypertension - Social History I have reviewed the patient's Social History: Yes - Tobacco History Second Hand Smoke Exposure: Yes Tobacco Use In Past 30 Days: Yes Smoking Status: Heavy tobacco smoker Tobacco Type: Cigarettes - Alcohol History How Often Do You Have a Drink Containing Alcohol: 4 or more times a week - Substance Use History Substance History: Active Abuse - Substance Use Type Marijuana Status: Sustained Remission Route Used: Inhalation Frequency: weekly Reason for Use: Calm Down LSD, Mushrooms Status: Active Route Used: By Mouth Reason for Use: Calm Down - Immunization History Tetanus Immunization: >5 Years Hx Influenza Vaccine This Season: No Medications and Allergies Active Medications: Active Medications Al Hydrox/Mg Hydrox/Simethicone (Mag-Al Plus Susp Liq) 30 ml PO Q6H PRN PRN Reason: DYSPEPSIA Last Admin: 11/05/17 08:39 Dose: 30 ml Al Hydroxide/Mg Hydroxide (Milk Of Magnesia Liq) 30 ml PO Q12H PRN PRN Reason: Mild Constipation Bisacodyl (Dulcolax Supp) 10 mg RECTAL DAILY PRN PRN Reason: SEVERE CONSITIPATION Flumazenil (Romazecon Inj) 0.2 mg IV.PUSH Q1M PRN PRN Reason: OVERSEDATION Haloperidol Lactate (Haldol Inj) 1 mg IV.PUSH Q15M PRN PRN Reason: for severe agitation Sodium Chloride (Ns Inj) 1,000 mls @ 100 mls/hr IV.CONT .Q10H JANAY Ibuprofen (Motrin) 600 mg PO Q8HR [facility] Last Admin: 11/06/17 05:04 Dose: 600 mg Lactulose (Lactulose Liq) 30 ml PO DAILY PRN PRN Reason: SEVERE CONSITIPATION Lorazepam (Ativan) 1 mg PO Q4H PRN PRN Reason: for CIWA 8-10 Last Admin: 11/06/17 08:14 Dose: 1 mg Lorazepam (Ativan Inj) 2 mg IV.PUSH Q2H PRN PRN Reason: for CIWA 11-14 Lorazepam (Ativan Inj) 2 mg IV.PUSH Q1H PRN PRN Reason: for CIWA 15-20 Lorazepam (Ativan Inj) 2 mg IV.PUSH Q15M PRN PRN Reason: for CIWA > 20 Lorazepam (Ativan Inj) 1 mg IV.PUSH Q4H PRN PRN Reason: for CIWA 8-10 Last Admin: 11/04/17 21:06 Dose: 1 mg Lorazepam (Ativan) 2 mg PO Q2H PRN PRN Reason: for CIWA 11-14 Pantoprazole Sodium (Protonix) 40 mg PO BID [facility] Last Admin: 11/06/17 08:14 Dose: 40 mg Sennosides (Senokot) 17.2 mg PO Q12H PRN PRN Reason: Moderate Constipation Allergies Allergy/AdvReac Type Severity Reaction Status Date / Time lithium Allergy Severe Seizures Verified 11/02/17 18:56 Home Medications Medication Instructions Recorded Confirmed Type gabapentin 300 mg PO TID 11/02/17 11/04/17 History trazodone 300 mg PO HS 11/02/17 11/04/17 History Prozac 40 mg PO DAILY 11/04/17 11/04/17 History oxycodone-acetaminophen [Percocet] PRN 11/04/17 11/04/17 History pantoprazole [Protonix] 40 mg PO BID 11/04/17 11/04/17 History Physical Exam Vital signs: Vital Signs 11/05/17 17:57 11/05/17 22:37 11/05/17 23:24 Temperature 98.5 F 100.6 F H Pulse Rate 75 114 H Respiratory Rate 16 Blood Pressure 122/71 106/59 L Pulse Oximetry 96 96 11/06/17 01:46 11/06/17 06:00 Temperature 99.8 F H Pulse Rate 115 H Respiratory Rate 16 Blood Pressure 110/66 124/70 Pulse Oximetry 95 Intake & Output 11/05/17 11/06/17 11/06/17 18:59 06:59 18:59 Intake Total 720 / 720 360 / 360 Balance 720 / 720 360 / 360 Intake: Oral 720 / 720 360 / 360 Other: # Voids 2 Date of Last Bowel Movement 11/04/17 Narrative: GENERAL: This is a thin appearing, well-developed patient, in no apparent distress. SKIN: Warm and dry. HEENT: Normocephalic. Pupils equal round and reactive. Nose without bleeding. Airway patent. NECK: Trachea midline. CARDIOVASCULAR: Regular rate and rhythm without murmurs, gallops, or rubs. RESPIRATORY: Clear to auscultation. Breath sounds equal bilaterally. No wheezes , rales, or rhonchi. GASTROINTESTINAL: Abdomen soft, non-tender, nondistended. Bowel Sounds normoactive x4. MUSCULOSKELETAL: Extremities without clubbing, cyanosis, or edema. Tremulous. NEUROLOGICAL: Awake and alert. No focal neuro deficit. Moves all extremities. Normal speech. Assessment and Plan - Plan Patient is a 42-year-old female with a history of major depression disorder, polysubstance abuse, and prior suicidal ideations who presented after intentional Tylenol overdose. She was admitted to critical care unit for aggressive treatment of acetylcysteine. She is now admitted to medical psych unit for further evaluation. Consulted for assistance for fever, increasing pain, increasing heart rate. Depression, suicidal ideation -Managed by psychiatry team SIRS Sepsis, source unknown, poss PNA delayed radiologic response? Possible DTs can also be considered since patient without Alcohol use since admission. Also has HX of DTs -Tachycardia, febrile, leukocytosis -Check UA, chest x-ray, check lab, check lactic acid, check blood cultures -IV fluids for hydration -Patient is status post EGD showing esophagitis -Monitor for now. Tylenol for pain and fevers. Keep tylenol <2000mg/day -Vanco and Zosyn for now. Will DC when cultures are negative -Check pro calcitonin, CRP EtOH withdrawal -Tremulous, possible withdrawal -CIWA -Thiamine, multivitamin, folic acid -2 bags of the vitamin, folic acid and thiamine on admission -Seizure precaution Nausea -Zofran PRN Atypical chest pain, possibly costochondritis as it is reproducible by palpation -Lidoderm patch -Hold Ibuprofen PRN for now drop in H/H DVT prop SCDs Code Status: Full code Discussed Condition With: Patient, nurse Discharge Planning: DC disposition by primary team
--- NOTE | 2017-11-06 12:44 | XR ---
EXAM DATE: 11/06/2017 12:00 AM EDT AGE/SEX: 42 years / Female INDICATIONS: Fever. CLINICAL DATA: This is the patient's initial encounter. Patient reports that signs and symptoms have been present for 3 days and indicates a pain score of 5/10. MEDICAL/SURGICAL HISTORY: . Chronic obstructive pulmonary disease. Gastroesophageal reflux dis ease. Pancreatitis. Ulcers. None. COMPARISON: [facility], CT CHEST W/O CONTRAST, 10/25/2017. [facility], CHEST 2V PA&LAT, 08/18/2017. . FINDINGS: Portable AP view of the chest demonstrates a normal-sized cardiac silhouette. No effusion, consolidat ion, or pneumothorax is identified. The bones and soft tissues demonstrate no acute finding. CONCLUSION: No acute cardiopulmonary abnormality is identified. Electronically signed by: Charlie Martell MD 11/06/2017 12:42 PM EDT
--- NOTE | 2017-11-06 13:16 | P.DIET ---
Nutritional Evaluation Type of nutrition evaluation: initial Nutrition screening: Weight Loss > 10 lbs Screening comments: Intentional wt loss Subjective Oral Diet Tolerance Assessment Indicates: Swallowing problems, Chewing problems Subjective Comments: pt is known to me from a previous admission here and she carried a h/o gastroparesis at that time. Pt has drank Ensure in the past. 100% for breakfast today. Pt avoids high fat food/no meat Objective - Diagnosis Bipolar Depression - Objective [place] body weight: 50 kg % IBW: 76 Body Weight Used for Calculations: Actual (38.1 kg) Energy Needs - Lower Range (kCal/kg): 35 Energy Needs - Upper Range (kCal/kg): 40 Lower Limit kCal/kg (kCals): 1,334 Upper Limit kCal/kg (kCals): 1,524 Lower Limit Protein Factor (Grams per Kg): 1.2 Upper Limit Protein Factor (Grams per Kg): 1.5 Lower Protein Needs (Protein): 46 Upper Protein Needs (Protein): 57 Fluid Factor (ml/kg): 35 Estimated Fluid Needs (ml): 1,334 Dietitian Reviewed in Medical Record: Current diet, Curent medications, Intake & Output, Labs, Medical history Diet Order: Cardiac Diet Objective Comments: PMH Includes: Anorexia, anxiety, Bulimia, COPD, Gastric ulcer, Major Depression , Pancreatitis, PNA 11/04 EGD findings include [place] Class A esophagitis, erythematous, gastritis in the gastric antrum A1C 5.5 Assessment Assessment: Pt is at high nutrition risk r/t recent reported intentional wt loss w/low BMI 15.4. Variable po intake 0% to 100%. Send Ensure TID(= 250 kcal and 9g protein per serving). Follow-up for pt supplement acceptance. Labs reviewed. Dietitian following. Recommendations: 1. Send Ensure TID 2. Follow-up for pt supplement acceptance 3. Dietitian following Dietitian to Monitor: Lab values, Supplement acceptance, Intake & Output, Diet tolerance, Weight change, PO Intake, Medical course
[2017-11-06 13:40] LABS: Baso # (Auto) 0.1 th/mm3 (0.0-0.2); Baso % (Auto) 0.4 % (0.0-2.0); Eos % (Auto) 0.1 % (0.0-4.0); Hematocrit 25.9 % (35.0-46.0); Hemoglobin 8.6 gm/dL (11.6-15.3); Lymph # (Auto) 0.3 th/mm3 (1.0-4.8); Lymph % (Auto) 1.7 % (9.0-44.0); Mean Corpuscular HGB Conc 33.4 % (32.0-36.0); Mean Corpuscular Hemoglobin 30.2 pg (27.0-34.0); Mean Corpuscular Volume 90.6 fL (80.0-100.0); Mean Platelet Volume 7.5 fL (7.0-11.0); Mono # (Auto) 0.9 th/mm3 (0.0-0.9); Mono % (Auto) 4.7 % (0.0-8.0); Neut # (Auto) 17.8 th/mm3 (1.8-7.7); Neut % (Auto) 93.1 % (16.0-70.0); Platelet Count 223 th/mm3 (150-450); Red Blood Count 2.86 mil/mm3 (4.00-5.30); Red Cell Distribution Width 15.1 % (11.6-17.2); White Blood Count 19.1 th/mm3 (4.0-11.0)
[2017-11-06 13:50] LABS: INR 1.2 Ratio; Prothrombin Time 12.4 sec (9.8-11.6)
[2017-11-06 14:00] LABS: Albumin 2.3 g/dL (3.4-5.0); Anion Gap 10 meq/L (5-15); Aspartate Aminotransferase 13 U/L (15-37); Blood Urea Nitrogen 5 mg/dL (7-18); Calcium 7.8 mg/dL (8.5-10.1); Carbon Dioxide 25.3 meq/L (21.0-32.0); Chloride 93 meq/L (98-107); Glomerular Filtration Rate Greater Than 89 mL/min (>89); Glucose,Random 118 mg/dL (74-106); Potassium 3.6 meq/L (3.5-5.1); Sodium 128 meq/L (136-145)
[2017-11-06 14:02] LABS: Alanine Aminotransferase 16 U/L (10-53)
[2017-11-06 14:03] LABS: Alkaline Phosphatase 75 U/L (45-117); Total Protein 5.8 g/dL (6.4-8.2)
[2017-11-06 14:05] LABS: Lymphocytes 1 % (9-44); Monocytes 5 % (0-8)
--- NOTE | 2017-11-06 14:05 | P.PNPSY ---
Subjective Chief Complaint: suicide attempt Remarks: Patient was seen and case was discussed with nursing. Today patient is showing signs of alcohol withdrawal. Her C was 11 he received 3 mg of Ativan. Her blood pressure is within range but she has been tachycardic. She has nausea but has not thrown up. She has mild body Y tremors. Patient also had a fever. Patient admits to actually having drunk every day for the past week and says she was too embarrassed to say so yesterday. Patient says she has had seizures in the past when withdrawing from alcohol. Patient was complaining of right- sided chest pain to the medical doctor and they are doing a workup. Mental Status Examination Appearance: Disheveled Consciousness: Alert Orientation: x4 Motor Activity: Normal gait Speech: Slow Language: Adequate Fund of Knowledge: Adequate Attention and Concentration: Adequate Mood: Sad, Anxious Affect: Anxious Thought Process & Associations: Intact Thought Content: Appropriate Hallucination Type: None Delusion Type: None Suicidal Ideation: No Suicidal Plan: No Suicidal Intention: No Homicidal Ideation: No Homicidal Plan: No Homicidal Intention: No Insight: Adequate Judgment: Impulsive Assessment and Plan - Assessment (1) Bipolar disorder, current episode depressed, mild or moderate severity, unspecified Code(s): F31.30 - Bipolar disorder, current episode depressed, mild or moderate severity, unspecified Status: Acute (2) Alcohol dependence with alcohol-induced mood disorder Code(s): F10.24 - Alcohol dependence with alcohol-induced mood disorder Status : Acute - Plan Plan: We will continue workup by the medical doctor as indicated. To prevent a seizure we will start Keppra 500 mg p.o. twice daily and get a neurological consult. Continue Ativan as indicated per [facility] protocol. Change vitals to every 4 hours Justification for Continued Inpatient Stay: Patient would decompensate in a less restrictive setting
[2017-11-06 14:06] LABS: Platelet Estimate Normal (Normal); Platelet Morphology Normal (Normal); RBC Morphology Normal (Normal)
[2017-11-06] MEDS: Folic Acid 1 MG Tablet PO SCH (14:22)
[2017-11-06] MEDS: Sod Chloride 0.9% Inj 1,000 ML IV.CONT SCH ×2 (15:13→15:18)
[2017-11-06] MEDS: Lidocaine 5% Patch T-DERMAL SCH (15:15)
[2017-11-06] MEDS: levETIRAcetam 500 MG Tablet PO SCH ×2 (15:17→20:37)
[2017-11-06] MEDS: Thiamine Inj 100 MG in Sodium Chlor 0.9% Inj 100 ML IV.SIG SCH (15:35)
[2017-11-06] MEDS: Piperacil/Tazo 3.375 GM Premix 50 ML IV.SIG SCH (17:57)
--- NOTE | 2017-11-06 18:24 | P.PNNEU ---
Subjective Subjective Comments: no sz this admission keep sodium up check iron follow up thhese labs plz as i am signing off call me if she actually has a sz benzos should help prevent this Active Medications: Active Medications Acetaminophen (Tylenol) 500 mg PO Q6H PRN PRN Reason: Temp >100.6, QUIROZ, Pain 1-5 Al Hydrox/Mg Hydrox/Simethicone (Mag-Al Plus Susp Liq) 30 ml PO Q6H PRN PRN Reason: DYSPEPSIA Last Admin: 11/05/17 08:39 Dose: 30 ml Al Hydroxide/Mg Hydroxide (Milk Of Magnesia Liq) 30 ml PO Q12H PRN PRN Reason: Mild Constipation Bisacodyl (Dulcolax Supp) 10 mg RECTAL DAILY PRN PRN Reason: SEVERE CONSITIPATION Flumazenil (Romazecon Inj) 0.2 mg IV.PUSH Q1M PRN PRN Reason: OVERSEDATION Folic Acid (Folic Acid) 1 mg PO DAILY [facility] Last Admin: 11/06/17 14:22 Dose: 1 mg Haloperidol Lactate (Haldol Inj) 1 mg IV.PUSH Q15M PRN PRN Reason: for severe agitation Sodium Chloride (Ns Inj) 1,000 mls @ 100 mls/hr IV.CONT .Q10H [facility] Last Admin: 11/06/17 15:18 Dose: 100 mls/hr Thiamine HCl 100 mg/ Sodium (Chloride) 101 mls @ 100 mls/hr IV.SIG DAILY [facility] Last Admin: 11/06/17 15:35 Dose: 100 mls/hr Piperacillin/Tazobactam/Dextrose (Zosyn 3.375 Gm Premix) 50 mls @ 100 mls/hr IV.SIG Q6H [facility] Last Admin: 11/06/17 17:57 Dose: 100 mls/hr Vancomycin HCl 500 mg/ Sodium (Chloride) 100 mls @ 200 mls/hr IV.SIG Q12H [facility] Ibuprofen (Motrin) 600 mg PO Q8HR [facility] Last Admin: 11/06/17 15:17 Dose: 600 mg Lactulose (Lactulose Liq) 30 ml PO DAILY PRN PRN Reason: SEVERE CONSITIPATION Levetiracetam (Keppra) 500 mg PO BID [facility] Last Admin: 11/06/17 15:17 Dose: 500 mg Lidocaine HCl (Lidoderm 5% Patch.12 Hr) 1 patch T-DERMAL DAILY [facility] Last Admin: 11/06/17 15:15 Dose: 1 patch Lorazepam (Ativan) 1 mg PO Q4H PRN PRN Reason: for CIWA 8-10 Last Admin: 11/06/17 08:14 Dose: 1 mg Lorazepam (Ativan Inj) 2 mg IV.PUSH Q2H PRN PRN Reason: for CIWA 11-14 Lorazepam (Ativan Inj) 2 mg IV.PUSH Q1H PRN PRN Reason: for CIWA 15-20 Lorazepam (Ativan Inj) 2 mg IV.PUSH Q15M PRN PRN Reason: for CIWA > 20 Lorazepam (Ativan Inj) 1 mg IV.PUSH Q4H PRN PRN Reason: for CIWA 8-10 Last Admin: 11/04/17 21:06 Dose: 1 mg Lorazepam (Ativan) 2 mg PO Q2H PRN PRN Reason: for CIWA 11-14 Last Admin: 11/06/17 15:43 Dose: 2 mg Multivitamins (Theragran) 1 tab PO DAILY [facility] Last Admin: 11/06/17 15:30 Dose: 1 tab Ondansetron HCl (Zofran Odt) 4 mg PO Q6H PRN PRN Reason: Nausea, vomiting Pantoprazole Sodium (Protonix) 40 mg PO BID [facility] Last Admin: 11/06/17 08:14 Dose: 40 mg Patch Removal (Remove Old Patch) 1 each T-DERMAL HS [facility] Sennosides (Senokot) 17.2 mg PO Q12H PRN PRN Reason: Moderate Constipation Allergies/Adverse Reactions: Allergies Allergy/AdvReac Type Severity Reaction Status Date / Time lithium Allergy Severe Seizures Verified 11/02/17 18:56 Physical Exam Vital signs: Vital Signs 11/05/17 22:37 11/05/17 23:24 11/06/17 01:46 Temperature 100.6 F H Pulse Rate 114 H Respiratory Rate Blood Pressure 106/59 L 110/66 Pulse Oximetry 96 11/06/17 06:00 11/06/17 17:46 Temperature 99.8 F H 102.4 F H Pulse Rate 115 H 107 H Respiratory Rate 16 17 Blood Pressure 124/70 105/55 L Pulse Oximetry 95 93 L Intake & Output 11/05/17 11/06/1711/06/18 18:59 06:59 18:59 Intake Total 720 / 720 360 / 360 480 / 480 Balance 720 / 720 360 / 360 480 / 480 Intake: Oral 720 / 720 360 / 360 480 / 480 Other: # Voids 2 2 Date of Last Bowel Movement 11/04/17 Objective Laboratory Results - last 24 hr 11/06/17 11/06/17 11/06/17 13:20 13:20 13:20 WBC 19.1 H RBC 2.86 L Hgb 8.6 L Hct 25.9 L MCV 90.6 MCH 30.2 MCHC 33.4 RDW 15.1 Plt Count 223 MPV 7.5 Prelim Diff (Auto) Slide review pending Neut % (Auto) 93.1 H Lymph % (Auto) 1.7 L [place] % (Auto) 4.7 Eos % (Auto) 0.1 Baso % (Auto) 0.4 Neut # (Auto) 17.8 H Lymph # (Auto) 0.3 L [place] # (Auto) 0.9 Eos # (Auto) 0.0 Baso # (Auto) 0.1 WBC Differential Manual diff final Seg Neuts % (Manual) 80 H Band Neuts % (Manual) 14 H Lymphocytes % (Manual) 1 L Monocytes % (Manual) 5 Abs Neuts (Manual) 18.0 H Differential Comment . Platelet Estimate Normal Platelet Morphology Normal RBC Morphology Normal PT 12.4 H INR 1.2 Sodium Potassium Chloride Carbon Dioxide Anion Gap BUN Creatinine Estimated GFR Random Glucose Osmolality Lactic Acid Calcium Total Bilirubin AST ALT Alkaline Phosphatase C-Reactive Protein Total Protein Albumin Beta HCG, Qual Less than 1.0 11/06/17 11/06/17 11/06/17 13:20 13:20 13:20 WBC RBC Hgb Hct MCV MCH MCHC RDW Plt Count MPV Prelim Diff (Auto) Neut % (Auto) Lymph % (Auto) [place] % (Auto) Eos % (Auto) Baso % (Auto) Neut # (Auto) Lymph # (Auto) [place] # (Auto) Eos # (Auto) Baso # (Auto) WBC Differential Seg Neuts % (Manual) Band Neuts % (Manual) Lymphocytes % (Manual) Monocytes % (Manual) Abs Neuts (Manual) Differential Comment Platelet Estimate Platelet Morphology RBC Morphology PT INR Sodium 128 L Potassium 3.6 Chloride 93 L Carbon Dioxide 25.3 Anion Gap 10 BUN 5 L Creatinine 0.68 Estimated GFR Greater than 89 Random Glucose 118 H Osmolality 261 L Lactic Acid 0.8 Calcium 7.8 L Total Bilirubin 0.3 AST 13 L ALT 16 Alkaline Phosphatase 75 C-Reactive Protein Total Protein 5.8 L Albumin 2.3 L Beta HCG, Qual 11/06/17 13:20 WBC RBC Hgb Hct MCV MCH MCHC RDW Plt Count MPV Prelim Diff (Auto) Neut % (Auto) Lymph % (Auto) [place] % (Auto) Eos % (Auto) Baso % (Auto) Neut # (Auto) Lymph # (Auto) [place] # (Auto) Eos # (Auto) Baso # (Auto) WBC Differential Seg Neuts % (Manual) Band Neuts % (Manual) Lymphocytes % (Manual) Monocytes % (Manual) Abs Neuts (Manual) Differential Comment Platelet Estimate Platelet Morphology RBC Morphology PT INR Sodium Potassium Chloride Carbon Dioxide Anion Gap BUN Creatinine Estimated GFR Random Glucose Osmolality Lactic Acid Calcium Total Bilirubin AST ALT Alkaline Phosphatase C-Reactive Protein 18.70 H Total Protein Albumin Beta HCG, Qual
[2017-11-06 18:50] LABS: Bacteria,Urine Rare /hpf; Bilirubin,Urine Negative (Negative); Clarity,Urine Hazy (Clear); Color,Urine Yellow (Yellw/Straw); Glucose,Urine (UA) Negative (Negative); Hyaline Casts,Urine 1 /lpf (0-3); Leukocyte Esterase,Urine Negative (Negative); Nitrite,Urine Negative (Negative); Specific Gravity,Urine 1.017 (1.002-1.035); Squamous Epithelial Cell,Urine 2 /hpf (0-5)
[2017-11-06] MEDS: Acetaminophen 500 MG Tablet PO PRN (20:36)
[2017-11-07] MEDS: Piperacil/Tazo 3.375 GM Premix 50 ML IV.SIG SCH ×2 (01:47→06:05)
[2017-11-07] MEDS: Sod Chloride 0.9% Inj 1,000 ML IV.CONT SCH ×3 (01:49→22:37)
[2017-11-07] MEDS: Acetaminophen 500 MG Tablet PO PRN ×3 (04:45→17:20)
--- NOTE | 2017-11-07 08:27 | P.PN ---
Subjective Interval history: Follow up visit ETOH withdrawal, tylenol overdose. Patient seen and examined today. States she feels a little better compared to yesterday. Continues to have moderate tremors. States increase anxiety and asking for Ativan, States she was not given Ativan because it was not ordered. C/o nausea and reports trying to eat. Otherwise, chest pain has improved with Lidoderm patch. Denies pain and discomfort. Denies SOB/ dyspnea. Denies palpitations, headaches, dizziness. Denies fevers, chills, n/v/d. Denies dysuria. As per nursing, patient does not score 8 on CIWA. On exam, patient moderately tremulous, moderately anxious, c/o of nausea scoring at least an 8-10. Physical Exam Vital signs: Vital Signs 11/06/17 17:46 11/06/17 19:23 11/06/17 20:00 Temperature 102.4 F H Pulse Rate 107 H Respiratory Rate 17 14 18 Blood Pressure 105/55 L Pulse Oximetry 93 L 11/06/17 21:05 11/07/17 06:00 Temperature 98.5 F Pulse Rate 101 H Respiratory Rate 18 16 Blood Pressure 116/58 L Pulse Oximetry 96 Intake & Output 11/06/17 11/07/17 11/07/17 18:59 06:59 18:59 Intake Total 530 / 530 1490 / 1490 50 / 50 Balance 530 / 530 1490 / 1490 50 / 50 Weight 37.7 kg Intake: IV 50 / 50 1150 / 1150 50 / 50 NS Inj 1,000 ML @ 100 mls/hr IV 1000 / 1000 .CONT .Q10H [facility] Rx#:[id number] Zosyn 3.375 GM Premix 50 ML @ 50 / 50 50 / 50 50 / 50 100 mls/hr IV.SIG Q6H [facility] Rx#: [id number] Vancomycin Inj 500 MG In NS Inj 100 / 100 100 ML @ 200 mls/hr IV.SIG Q12H [facility] Rx#:[id number] Oral 480 / 480 240 / 240 Oral Supplement 100 / 100 Other: # Voids 2 3 Narrative: GENERAL: This is a thin appearing, well-developed patient, in no apparent distress. SKIN: Warm and dry. HEENT: Normocephalic. Pupils equal round and reactive. Nose without bleeding. Airway patent. NECK: Trachea midline. CARDIOVASCULAR: Regular rate and rhythm without murmurs, gallops, or rubs. RESPIRATORY: Clear to auscultation. Breath sounds equal bilaterally. No wheezes , rales, or rhonchi. GASTROINTESTINAL: Abdomen soft, non-tender, nondistended. Bowel Sounds normoactive x4. MUSCULOSKELETAL: Extremities without clubbing, cyanosis, or edema. Moderately Tremulous. NEUROLOGICAL: Awake and alert. No focal neuro deficit. Moves all extremities. Normal speech. Anxious. Results - Labs CBC & Chem 7: 11/07/17 09:37 11/07/17 07:40 Laboratory Results - last 24 hr 11/06/17 11/06/17 11/06/17 13:20 13:20 13:20 WBC 19.1 H RBC 2.86 L Hgb 8.6 L Hct 25.9 L MCV 90.6 MCH 30.2 MCHC 33.4 RDW 15.1 Plt Count 223 MPV 7.5 Prelim Diff (Auto) Slide review pending Neut % (Auto) 93.1 H Lymph % (Auto) 1.7 L [place] % (Auto) 4.7 Eos % (Auto) 0.1 Baso % (Auto) 0.4 Neut # (Auto) 17.8 H Lymph # (Auto) 0.3 L [place] # (Auto) 0.9 Eos # (Auto) 0.0 Baso # (Auto) 0.1 WBC Differential Manual diff final Seg Neuts % (Manual) 80 H Band Neuts % (Manual) 14 H Lymphocytes % (Manual) 1 L Monocytes % (Manual) 5 Abs Neuts (Manual) 18.0 H Differential Comment . Platelet Estimate Normal Platelet Morphology Normal RBC Morphology Normal PT 12.4 H INR 1.2 Sodium Potassium Chloride Carbon Dioxide Anion Gap BUN Creatinine Estimated GFR Random Glucose Osmolality Lactic Acid Calcium Iron Total Bilirubin AST ALT Alkaline Phosphatase C-Reactive Protein Total Protein Albumin Procalcitonin Beta HCG, Qual Less than 1.0 Urine Color Urine Clarity Urine pH Ur Specific [place] Urine Protein Urine Glucose (UA) Urine Ketones Urine Occult Blood Urine Nitrate Urine Bilirubin Urine Urobilinogen Ur Leukocyte Esterase Urine RBC Urine WBC Ur Squamous Epith Cells Urine Bacteria Hyaline Casts Micro UA Comment Ur Microscopic Review Urine Culture Comments Ur Random Sodium 11/06/17 11/06/17 11/06/17 13:20 13:20 13:20 WBC RBC Hgb Hct MCV MCH MCHC RDW Plt Count MPV Prelim Diff (Auto) Neut % (Auto) Lymph % (Auto) [place] % (Auto) Eos % (Auto) Baso % (Auto) Neut # (Auto) Lymph # (Auto) [place] # (Auto) Eos # (Auto) Baso # (Auto) WBC Differential Seg Neuts % (Manual) Band Neuts % (Manual) Lymphocytes % (Manual) Monocytes % (Manual) Abs Neuts (Manual) Differential Comment Platelet Estimate Platelet Morphology RBC Morphology PT INR Sodium 128 L Potassium 3.6 Chloride 93 L Carbon Dioxide 25.3 Anion Gap 10 BUN 5 L Creatinine 0.68 Estimated GFR Greater than 89 Random Glucose 118 H Osmolality 261 L Lactic Acid 0.8 Calcium 7.8 L Iron Total Bilirubin 0.3 AST 13 L ALT 16 Alkaline Phosphatase 75 C-Reactive Protein Total Protein 5.8 L Albumin 2.3 L Procalcitonin Beta HCG, Qual Urine Color Urine Clarity Urine pH Ur Specific [place] Urine Protein Urine Glucose (UA) Urine Ketones Urine Occult Blood Urine Nitrate Urine Bilirubin Urine Urobilinogen Ur Leukocyte Esterase Urine RBC Urine WBC Ur Squamous Epith Cells Urine Bacteria Hyaline Casts Micro UA Comment Ur Microscopic Review Urine Culture Comments Ur Random Sodium 11/06/17 11/06/17 11/06/17 13:20 13:20 16:20 WBC RBC Hgb Hct MCV MCH MCHC RDW Plt Count MPV Prelim Diff (Auto) Neut % (Auto) Lymph % (Auto) [place] % (Auto) Eos % (Auto) Baso % (Auto) Neut # (Auto) Lymph # (Auto) [place] # (Auto) Eos # (Auto) Baso # (Auto) WBC Differential Seg Neuts % (Manual) Band Neuts % (Manual) Lymphocytes % (Manual) Monocytes % (Manual) Abs Neuts (Manual) Differential Comment Platelet Estimate Platelet Morphology RBC Morphology PT INR Sodium Potassium Chloride Carbon Dioxide Anion Gap BUN Creatinine Estimated GFR Random Glucose Osmolality Lactic Acid Calcium Iron 7 L Total Bilirubin AST ALT Alkaline Phosphatase C-Reactive Protein 18.70 H Total Protein Albumin Procalcitonin Beta HCG, Qual Urine Color Yellow Urine Clarity Hazy H Urine pH 6.0 Ur Specific [place] 1.017 Urine Protein 100 H Urine Glucose (UA) Negative Urine Ketones 80 or greater H Urine Occult Blood Small H Urine Nitrate Negative Urine Bilirubin Negative Urine Urobilinogen 2.0 H Ur Leukocyte Esterase Negative Urine RBC 2 Urine WBC 1 Ur Squamous Epith Cells 2 Urine Bacteria Rare H Hyaline Casts 1 Micro UA Comment Culture not ind Ur Microscopic Review Not Reportable Urine Culture Comments Culture not ind Ur Random Sodium 11/06/17 11/06/17 16:20 16:51 WBC RBC Hgb Hct MCV MCH MCHC RDW Plt Count MPV Prelim Diff (Auto) Neut % (Auto) Lymph % (Auto) [place] % (Auto) Eos % (Auto) Baso % (Auto) Neut # (Auto) Lymph # (Auto) [place] # (Auto) Eos # (Auto) Baso # (Auto) WBC Differential Seg Neuts % (Manual) Band Neuts % (Manual) Lymphocytes % (Manual) Monocytes % (Manual) Abs Neuts (Manual) Differential Comment Platelet Estimate Platelet Morphology RBC Morphology PT INR Sodium Potassium Chloride Carbon Dioxide Anion Gap BUN Creatinine Estimated GFR Random Glucose Osmolality Lactic Acid Calcium Iron Total Bilirubin AST ALT Alkaline Phosphatase C-Reactive Protein Total Protein Albumin Procalcitonin 1.17 H Beta HCG, Qual Urine Color Urine Clarity Urine pH Ur Specific [place] Urine Protein Urine Glucose (UA) Urine Ketones Urine Occult Blood Urine Nitrate Urine Bilirubin Urine Urobilinogen Ur Leukocyte Esterase Urine RBC Urine WBC Ur Squamous Epith Cells Urine Bacteria Hyaline Casts Micro UA Comment Ur Microscopic Review Urine Culture Comments Ur Random Sodium 68 - Imaging Impressions Chest X-Ray 11/06/17 00:00 CONCLUSION: No acute cardiopulmonary abnormality is identified. Assessment and Plan - Plan Patient is a 42-year-old female with a history of major depression disorder, polysubstance abuse, and prior suicidal ideations who presented after intentional Tylenol overdose. She was admitted to critical care unit for aggressive treatment of acetylcysteine. She is now admitted to medical psych unit for further evaluation. Consulted for assistance for fever, increasing pain, increasing heart rate. Depression, suicidal ideation -Managed by psychiatry team EtOH withdrawal HX of DTs with seizure -Initially appears to represent a SIRS, sepsis of unknown source. However lactic acid 0.8, UA negative, chest x-ray negative -Pro calcitonin, CRP both elevated with mod risk, however, clinically patient does not appear to have infectious process. UA negative. Denies symptomatology -cough, dysuria, abdominal pain. Reports tremors, increase anxiety and nausea. Patient appears to have withdrawal symptoms than infectious process. Possible elevation is secondary to withdrawal symptoms, increase metabolic stress -Vancomycin, Zosyn discontinued -Tachycardia, febrile, leukocytosis -Blood cultures pending -IV fluids for hydration -Tylenol for pain and fevers. Keep tylenol <2000mg/day -Tremulous, anxiety present -CIHUMZA, score need to be reevaluated, she scores higher on my exam compared to the nurses. This has been discussed with nursing. Patient will need benzo to avoid withdrawal symptoms and prevent seizure. Will discuss with Dr. Vasquez -Librium 10 mg every 8 hours started -Thiamine, multivitamin, folic acid -2 bags of the vitamin, folic acid and thiamine on admission -Seizure precaution Nausea -Zofran PRN Atypical chest pain, possibly costochondritis as it is reproducible by palpation -Lidoderm patch -Hold Ibuprofen PRN for now drop in H/H. Patient is status post EGD showing esophagitis DVT prop SCDs Full code Discussed with patient, nursing Discharge Planning: DC disposition by primary team
[2017-11-07] MEDS: Lidocaine 5% Patch T-DERMAL SCH (08:32)
[2017-11-07] MEDS: levETIRAcetam 500 MG Tablet PO SCH ×2 (08:32→20:56)
[2017-11-07] MEDS: LORazepam 1 MG Tablet PO PRN ×2 (08:32→14:23)
[2017-11-07] MEDS: Thiamine Inj 100 MG in Sodium Chlor 0.9% Inj 100 ML IV.SIG SCH (08:32)
[2017-11-07] MEDS: Folic Acid 1 MG Tablet PO SCH (08:32)
[2017-11-07 08:36] LABS: Anion Gap 11 meq/L (5-15); Blood Urea Nitrogen 7 mg/dL (7-18); Calcium 7.7 mg/dL (8.5-10.1); Carbon Dioxide 23.4 meq/L (21.0-32.0); Chloride 100 meq/L (98-107); Glomerular Filtration Rate Greater Than 89 mL/min (>89); Glucose,Random 85 mg/dL (74-106); Potassium 3.2 meq/L (3.5-5.1); Sodium 134 meq/L (136-145)
[2017-11-07 09:59] LABS: Hematocrit 27.9 % (35.0-46.0); Hemoglobin 9.4 gm/dL (11.6-15.3); Mean Corpuscular HGB Conc 33.6 % (32.0-36.0); Mean Corpuscular Hemoglobin 30.8 pg (27.0-34.0); Mean Corpuscular Volume 91.7 fL (80.0-100.0); Mean Platelet Volume 8.6 fL (7.0-11.0); Platelet Count 174 th/mm3 (150-450); Red Blood Count 3.04 mil/mm3 (4.00-5.30); Red Cell Distribution Width 15.5 % (11.6-17.2); White Blood Count 21.1 th/mm3 (4.0-11.0)
--- NOTE | 2017-11-07 10:28 | P.PNPSY ---
Subjective Chief Complaint: SA by OD in setting of EtOH Remarks: Patient seen and examined with nurse. Chart reviewed. Case discussed with nursing staff who reports patient's most recent CIWA score was a 6. Patient noted to be seeking for benzodiazepines. Oral intake reportedly fair. On my examination today, the patient says that she made her presenting overdose on Tylenol as "an attempt to escape" in the setting of ongoing alcohol abuse. She says that she spent approximately 4 months in chemical dependency rehabilitation earlier in the year but relapsed to heavy drinking after about 3 months of sobriety. She reports a history of multiple previous suicide attempts in the setting of alcohol intoxication. Her alcohol level on presentation here this time was 188. She describes some ongoing low mood and anxiety but does not describe any current suicidal ideation. She complains of feeling somewhat tremulous but has no other acute physical complaints. Vital Signs Temp Pulse Resp BP Pulse Ox 11/07/17 11:30 16 11/07/17 09:00 16 11/07/17 06:00 98.5 F 101 H 16 116/58 L 96 11/06/17 21:05 18 11/06/17 20:00 18 11/06/17 19:23 14 11/06/17 17:46 102.4 F H 107 H 17 105/55 L 93 L Intake and Output 11/07/17 11/07/17 11/07/17 06:59 14:59 22:59 Intake Total 1050 / 1050 2009 Balance 1050 / 1050 2009 Intake: IV 1050 / 1050 1050 / 1050 NS Inj 1,000 ML @ 100 mls/hr IV 1000 / 1000 1000 / 1000 .CONT .Q10H [facility] Rx#:[id number] Zosyn 3.375 GM Premix 50 ML @ 50 / 50 50 / 50 100 mls/hr IV.SIG Q6H [facility] Rx#: [id number] Oral 960 / 960 Other: # Voids 3 2 # Bowel Movements 0 Weight 37.7 kg Laboratory Tests 11/05/17 11/06/17 11/06/17 06:52 13:20 13:20 WBC Hgb Plt Count Sodium Potassium Chloride Carbon Dioxide Anion Gap BUN Creatinine Estimated GFR Random Glucose AST 13 L ALT 16 Alkaline Phosphatase 75 TSH 2.010 Beta HCG, Qual Less than 1.0 10/01/18 10/01/18 07:40 09:37 WBC 21.1 H Hgb 9.4 L Plt Count 174 Sodium 134 L Potassium 3.2 L Chloride 100 Carbon Dioxide 23.4 Anion Gap 11 BUN 7 Creatinine 0.67 Estimated GFR Greater than 89 Random Glucose 85 AST ALT Alkaline Phosphatase TSH Beta HCG, Qual Labs reviewed. Review of Systems All other systems reviewed negative except as stated in HPI Mental Status Examination Appearance: Appropriate (Fair grooming) Consciousness: Alert Orientation: x4 Motor Activity: Normal gait, Other (Mild resting hand tremor. This is somewhat distractible. No diaphoresis, no mydriasis, no tongue fasciculations noted.) Speech: Unremarkable Language: Adequate Fund of Knowledge: Adequate Attention and Concentration: Adequate Mood: Anxious, Other (Somewhat dysphoric) Affect: Blunt Thought Process & Associations: Intact, Logical, Linear Thought Content: Appropriate Hallucination Type: None Delusion Type: None Suicidal Ideation: No Homicidal Ideation: No Insight: Poor Judgment: Poor Assessment and Plan - Assessment (1) Alcohol dependence with alcohol-induced mood disorder Code(s): F10.24 - Alcohol dependence with alcohol-induced mood disorder Status : Acute - Plan Plan: Patient with history of recurrent suicide attempts in the setting of alcohol use. Currently somewhat depressed and anxious, but alcohol seems to be the primary risk factor for ongoing self-harm, and I believe it therefore makes sense to focus efforts towards patient's chem dep issues. I will place patient under physician certificate for admission to detox facility. Case d/w junior paralegal vis a vis the [place] Act, which will today; she has instructed that [facility] will replace [facility], which can therefore be allowed to . Case discussed with charge nurse who will initiate referral to [facility] for detox. Case discussed with hospitalist midlevel, who reports that after another night of IV hydration, patient will likely be medically cleared for transfer to detox facility. Plan discussed with patient herself. Patient has scheduled Librium and Ativan by [facility] for withdrawal. I will continue to hold scheduled psychotropics while patient is in acute withdrawal. Continue to monitor on medical psychiatric unit. Continue other care as ordered. Justification for Continued Inpatient Stay: Complicating condition Discharge Planning: Transfer to [facility] for detox under [facility] once cleared by hospitalist, likely Tuesday. Request Healthcare Surrogate/Guardian Advocate?: No
[2017-11-07 10:36] LABS: Lymphocytes 1 % (9-44); Metamyelocytes 1 % (0-1); Monocytes 5 % (0-8); Toxic Granulation 1+
[2017-11-07 10:37] LABS: Toxic Vacuolation Present
[2017-11-07 10:38] LABS: Platelet Estimate Normal (Normal); Platelet Morphology Normal (Normal)
[2017-11-08] MEDS: Acetaminophen 500 MG Tablet PO PRN ×3 (02:31→20:25)
[2017-11-08 07:30] LABS: Baso % (Auto) 0.2 % (0.0-2.0); Eos # (Auto) 0.4 th/mm3 (0.0-0.4); Eos % (Auto) 2.9 % (0.0-4.0); Hematocrit 22.4 % (35.0-46.0); Hemoglobin 7.4 gm/dL (11.6-15.3); Lymph # (Auto) 0.9 th/mm3 (1.0-4.8); Lymph % (Auto) 6.3 % (9.0-44.0); Mean Corpuscular HGB Conc 33.2 % (32.0-36.0); Mean Corpuscular Hemoglobin 30.5 pg (27.0-34.0); Mean Corpuscular Volume 91.8 fL (80.0-100.0); Mean Platelet Volume 8.2 fL (7.0-11.0); Mono # (Auto) 0.8 th/mm3 (0.0-0.9); Mono % (Auto) 5.8 % (0.0-8.0); Neut % (Auto) 84.8 % (16.0-70.0); Platelet Count 190 th/mm3 (150-450); Red Blood Count 2.44 mil/mm3 (4.00-5.30); Red Cell Distribution Width 15.4 % (11.6-17.2); White Blood Count 14.2 th/mm3 (4.0-11.0)
[2017-11-08 07:56] LABS: Anion Gap 10 meq/L (5-15); Blood Urea Nitrogen 3 mg/dL (7-18); Calcium 7.8 mg/dL (8.5-10.1); Carbon Dioxide 20.2 meq/L (21.0-32.0); Chloride 105 meq/L (98-107); Glomerular Filtration Rate Greater Than 89 mL/min (>89); Glucose,Random 68 mg/dL (74-106); Potassium 3.3 meq/L (3.5-5.1); Sodium 135 meq/L (136-145)
[2017-11-08] MEDS: Lidocaine 5% Patch T-DERMAL SCH (08:04)
[2017-11-08] MEDS: Thiamine Inj 100 MG in Sodium Chlor 0.9% Inj 100 ML IV.SIG SCH (08:04)
[2017-11-08] MEDS: Folic Acid 1 MG Tablet PO SCH (08:05)
[2017-11-08] MEDS: Sod Chloride 0.9% Inj 1,000 ML IV.CONT SCH ×2 (08:05→19:44)
[2017-11-08] MEDS: levETIRAcetam 500 MG Tablet PO SCH ×2 (08:05→20:25)
--- NOTE | 2017-11-08 08:55 | P.PN ---
Subjective Interval history: Follow up visit ETOH withdrawal, tylenol overdose. Patient seen and examined today. Patient again requesting Ativan, no tremors, does not meet criteria per CIWA protocol. Requesting Percocet, indicates that she continues to have right- sided chest wall pain. No shortness of breath, no dyspnea. No nausea, no vomiting, no diarrhea. Does not want to eat. Denies any abdominal pain. States that she is not sleeping well, asking when her psychiatric medications will be starting. Physical Exam Vital signs: Vital Signs 11/07/17 09:00 11/07/17 11:30 11/07/17 18:00 Temperature Pulse Rate Respiratory Rate 16 16 3 L Blood Pressure Pulse Oximetry 11/07/17 18:07 11/08/17 03:00 11/08/17 05:06 Temperature 98.8 F 98.9 F Pulse Rate 100 H 72 Respiratory Rate 16 16 16 Blood Pressure 119/68 129/70 Pulse Oximetry 99 92 L Intake & Output 11/07/17 11/08/17 11/08/17 18:59 06:59 18:59 Intake Total 2009 1341 / 1341 1000 / 1000 Balance 2009 1341 / 1341 1000 / 1000 Intake: IV 1050 / 1050 1101 / 1101 1000 / 1000 NS Inj 1,000 ML @ 100 mls/hr IV 1000 / 1000 1000 / 1000 1000 / 1000 .CONT .Q10H JANAY Rx#:[id number] Zosyn 3.375 GM Premix 50 ML @ 50 / 50 100 mls/hr IV.SIG Q6H JANAY Rx#: [id number] Thiamine Inj 100 MG In NS Inj 101 / 101 100 ML @ 100 mls/hr IV.SIG DAILY AJNAY Rx#:[id number] Oral 960 / 960 240 / 240 Other: # Voids 2 3 # Bowel Movements 0 Narrative: GENERAL: This is a thin appearing, well-developed patient, in no apparent distress. Appears older than stated age. SKIN: Warm and dry. HEENT: Normocephalic. Pupils equal round and reactive. Nose without bleeding. Airway patent. NECK: Trachea midline. CARDIOVASCULAR: Regular rate and rhythm without murmurs, gallops, or rubs. RESPIRATORY: Clear to auscultation. Breath sounds equal bilaterally. No wheezes , rales, or rhonchi. GASTROINTESTINAL: Abdomen soft, non-tender, nondistended. Bowel Sounds normoactive x4. MUSCULOSKELETAL: Extremities without clubbing, cyanosis, or edema. Moderately Tremulous. NEUROLOGICAL: Awake and alert. No focal neuro deficit. Moves all extremities. Normal speech. Anxious. Results - Labs CBC & Chem 7: 11/08/17 06:51 11/08/17 06:51 Laboratory Results - last 24 hr 11/07/17 11/08/17 11/08/17 09:37 06:51 06:51 WBC 21.1 H 14.2 H RBC 3.04 L 2.44 L Hgb 9.4 L 7.4 L D Hct 27.9 L 22.4 L MCV 91.7 91.8 MCH 30.8 30.5 MCHC 33.6 33.2 RDW 15.5 15.4 Plt Count 174 190 MPV 8.6 8.2 Prelim Diff (Auto) Manual diff required Neut % (Auto) 84.8 H Lymph % (Auto) 6.3 L Day % (Auto) 5.8 Eos % (Auto) 2.9 Baso % (Auto) 0.2 Neut # (Auto) 12.0 H Lymph # (Auto) 0.9 L Day # (Auto) 0.8 Eos # (Auto) 0.4 Baso # (Auto) 0.0 WBC Differential Manual diff final . Seg Neuts % (Manual) 69 Band Neuts % (Manual) 23 H Lymphocytes % (Manual) 1 L Monocytes % (Manual) 5 Basophils % (Manual) 1 Metamyelocytes % (Man) 1 Abs Neuts (Manual) 19.6 H Differential Comment . Auto diff final Toxic Granulation 1+ H Toxic Vacuolation Present H Platelet Estimate Normal Platelet Morphology Normal Sodium 135 L Potassium 3.3 L Chloride 105 Carbon Dioxide 20.2 L Anion Gap 10 BUN 3 L Creatinine 0.58 Estimated GFR Greater than 89 Random Glucose 68 L Calcium 7.8 L Microbiology 11/06/17 13:10 Blood - Peripheral Aerobic Blood Culture - Preliminary No growth in 1 day 11/06/17 13:10 Blood - Peripheral Anaerobic Blood Culture - Preliminary No growth in 1 day 11/06/17 13:20 Blood - Peripheral Aerobic Blood Culture - Preliminary No growth in 1 day 11/06/17 13:20 Blood - Peripheral Anaerobic Blood Culture - Preliminary No growth in 1 day Assessment and Plan - Plan Patient is a 42-year-old female with a history of major depression disorder, polysubstance abuse, and prior suicidal ideations who presented after intentional Tylenol overdose. She was admitted to critical care unit for aggressive treatment of acetylcysteine. She is now admitted to medical psych unit for further evaluation. Consulted for assistance for fever, increasing pain, increasing heart rate. Depression, suicidal ideation -Managed by psychiatry team EtOH withdrawal HX of DTs with seizure -Initially appeared to represent a SIRS, sepsis of unknown source. However lactic acid 0.8, UA negative, chest x-ray negative -Pro calcitonin, CRP both elevated with mod risk, however, clinically patient does not appear to have infectious process. UA negative. Denies symptomatology -cough, dysuria, abdominal pain. Reports tremors, increase anxiety and nausea. Patient appears to have withdrawal symptoms than infectious process. Possible elevation is secondary to withdrawal symptoms, increase metabolic stress -Vancomycin, Zosyn discontinued -Continue IV fluids for now -Blood cultures-no growth up-to-date -Tylenol for pain and fevers. Keep tylenol <2000mg/day -Tremulous, anxiety present -Per nursing, she is not meeting Ativan per CIWA requirements. -Continue Librium, will increase to 15 mg every 8. -Thiamine, multivitamin, folic acid -2 bags of the vitamin, folic acid and thiamine on admission -Seizure precaution -WBC trending down, 14.2. No fever. Likely cause of leukocytosis and tachycardia was withdrawal symptoms. Nausea -Zofran PRN Atypical chest pain, possibly costochondritis as it is reproducible by palpation Patient requesting Percocet, indicates she was taking at home. States that ibuprofen, Tylenol, and patch not working. -Lidoderm patch -Hold Ibuprofen PRN for now drop in H/H. Patient is status post EGD showing esophagitis -We will add Robaxin 500 mg p.o. every 8 as needed. Anemia Status post EGD on 11/04/2017. Findings include LA Class A esophagitis, erythematous gastritis in the gastric antrum. Biopsies were taken of both areas -Appreciate GI input, continue to hold ibuprofen Hemoglobin 7.4 today, hematocrit 22.4. Likely dilutional, on IV fluids. Repeat CBC in the morning Decrease IV fluid -Continue Protonix 40 mg p.o. twice daily DVT prop SCDs Replace potassium Enc. PO intake, continue Ensure Repeat CBC and BMP in the morning Code Status: Full code Discussed Condition With: Patient, registered nurse Discharge Planning: Discharge planning per primary care team, [facility] will be going [facility].
--- NOTE | 2017-11-08 09:49 | MB ---
cc: Yan Quarles MD DATE: 11/06/2017 HISTORY OF PRESENT ILLNESS: This is a 42-year-old, right-handed woman with a history of COPD, depression, anxiety, bipolar on trazodone, Prozac, and gabapentin, who says she has had 3 alcohol withdrawal seizures over many years. Never had a seizure when she was not stopped drinking. She had a negative EEG and normal MRI of the brain with and without contrast back in 2006. I am asked to see her because she has had withdrawal seizures in the past, not because she has currently had a seizure here. REVIEW OF SYSTEMS: She denies any history of hypertension, diabetes, hypercholesterolemia, CT, CABG, cardiac arrhythmia, stent, angioplasty, A-Fib, Coumadin, renal, hepatic disease, thyroid disease, lupus, ulcer, cancer, seizure or stroke. SOCIAL HISTORY: She is a smoker, nondrinker, no drugs. Lives with her fiance. FAMILY HISTORY: Negative for cancer, seizure or stroke. MEDICATIONS AT HOME: As noted. Also, Protonix, Percocet. PHYSICAL EXAMINATION: VITAL SIGNS: On exam, she was running a fever to 102.4, blood pressure 105/55, respirations 17, pulse 107. HEART: There were no carotid bruits. Regular rate and rhythm. I did not detect a murmur. NEUROLOGIC: There is a minimal tremor in extended hands. Pupils are equal. Visual diallo are full. Extraocular movements intact without nystagmus. Face is symmetric with normal sensation. Tongue was midline. No drift. Normal strength in upper and lower extremities bilaterally. Toes downgoing bilaterally. DTRs trace throughout. Pinprick is intact throughout. Intact [id number]. Speech is fluent. She is not aphasic. She is alert and oriented x 3, in no apparent distress at this time. Neck is supple. LABORATORY DATA: Sodium is 128, otherwise BMP is normal. LFTs are normal. Albumin is normal. TSH has been normal. She had a CRP of 36 back in 2015. She has a history of hyponatremia down to 126 in 07/2017. Transferrin, ferritin has been normal. Iron was very low in 2016, less than 5. Ammonia level has been normal. LDL cholesterol has been normal in the past. B12 has been normal in the past, as has her thyroid. Urine drug screens have mainly been negative in the past. CRUZITO has been negative, RPR, HIV has been negative in the past. CT scan of the brain done 10/25/2017 here was read as negative. IMPRESSION: She was started on Keppra, which is fine, although the main treatment for the alcohol withdrawal seizures would be benzodiazepines. She is on an Ativan protocol. She has been given some thiamine. I thought overall she looked well, neurologically. I would recommend rechecking her iron level and I did put that order in, and would ask the med team to followup on that. Otherwise, she looks fine neurologically. I am going to sign off. If she has any seizures, feel free to call me. MD NEERU Contreras/zaid , 06:21 PM , 06:29 PM
[2017-11-08] MEDS ORDERED: Potassium Chloride 25 MEQ Effervescent Tablet PO ONE (10:00)
--- NOTE | 2017-11-08 11:52 | P.PNPSY ---
Subjective Chief Complaint: SA by OD in setting of EtOH Remarks: Reviewed electronic medical records and discussed case with staff. Follow-up was conducted in patient's room. Patient found sitting on the bed awake, alert , and oriented. She reports that she is doing "not really good". She states this is because she is in a lot of pain. Patient continues to med seek. She complains of not sleeping and states that she has no appetite. Overall, she presents as hopeless and helpless. The patient's CBC and chemistry panel still remain outside of normal parameters. Patient continues to be followed by medical. Mental Status Examination Appearance: Appropriate (Fair grooming) Consciousness: Alert Orientation: x4 Motor Activity: Normal gait, Other (Mild resting hand tremor. This is somewhat distractible. No diaphoresis, no mydriasis, no tongue fasciculations noted.) Speech: Unremarkable Language: Adequate Fund of Knowledge: Adequate Attention and Concentration: Adequate Mood: Anxious, Other (Somewhat dysphoric) Affect: Blunt Thought Process & Associations: Intact, Logical, Linear Thought Content: Appropriate Hallucination Type: None Delusion Type: None Suicidal Ideation: No Suicidal Plan: No Suicidal Intention: No Homicidal Ideation: No Homicidal Plan: No Homicidal Intention: No Insight: Poor Judgment: Poor Assessment and Plan - Assessment (1) Bipolar depression Code(s): F31.30 - Bipolar disorder, current episode depressed, mild or moderate severity, unspecified Status: Acute - Plan Plan: Patient will be reevaluated tomorrow by the attending psychiatrist. Continue with current treatment plan. Justification for Continued Inpatient Stay: Moving this patient to a less restrictive environment would likely result in decompensation. Request Healthcare Surrogate/Guardian Advocate?: No
[2017-11-08] MEDS ORDERED: Methocarbamol 500 MG Tablet PO SCH (16:00)
[2017-11-08] MEDS: Methocarbamol 500 MG Tablet PO PRN (23:13)
[2017-11-09] MEDS: Sod Chloride 0.9% Inj 1,000 ML IV.CONT SCH ×2 (00:33→22:45)
[2017-11-09] MEDS: Acetaminophen 500 MG Tablet PO PRN ×3 (02:53→15:09)
[2017-11-09] MEDS: levETIRAcetam 500 MG Tablet PO SCH (08:32)
[2017-11-09] MEDS: Folic Acid 1 MG Tablet PO SCH (08:32)
[2017-11-09] MEDS: Lidocaine 5% Patch T-DERMAL SCH (08:33)
[2017-11-09] MEDS: Methocarbamol 500 MG Tablet PO PRN ×2 (08:39→15:50)
--- NOTE | 2017-11-09 08:41 | P.PN ---
Subjective Interval history: Follow up visit ETOH withdrawal, tylenol overdose. Patient seen and examined today. Pt. c/o significant pain to right anterior chest wall, feels a "fluttering" when she presses her hand over it. Tylenol and patch not helping. Pain worst with deep breath and some relief leaning forward. No SOB, no diaphoresis, no fever, no chills, no cough. States she is not sleeping. Poor appetite due to pain. Asking for something to help her sleep. No abd. pain. Physical Exam Vital signs: Vital Signs 11/08/17 09:00 11/08/17 13:00 11/08/17 18:00 Temperature 99.3 F Pulse Rate 80 Respiratory Rate 16 16 18 Blood Pressure 116/64 Pulse Oximetry 94 L 11/09/17 06:00 Temperature 98.2 F Pulse Rate 60 Respiratory Rate 16 Blood Pressure 129/59 L Pulse Oximetry 97 Intake & Output 11/08/17 11/09/17 11/09/17 18:59 06:59 18:59 Intake Total 3041 / 3041 1000 / 1000 Balance 3041 / 3041 1000 / 1000 Intake: IV 1101 / 1101 1000 / 1000 NS Inj 1,000 ML @ 50 mls/hr IV. 1000 / 1000 1000 / 1000 CONT .Q20H JANAY Rx#:[id number] Thiamine Inj 100 MG In NS Inj 101 / 101 100 ML @ 50 mls/hr IV.SIG DAILY JANAY Rx#:[id number] Oral 1939 Other: # Voids 3 Date of Last Bowel Movement 11/04/17 Narrative: GENERAL: This is a thin appearing, well-developed patient, in no apparent distress. Appears older than stated age. SKIN: Warm and dry. HEENT: Normocephalic. Pupils equal round and reactive. Nose without bleeding. Airway patent. NECK: Trachea midline. CARDIOVASCULAR: Regular rate and rhythm without murmurs, gallops, or rubs. RESPIRATORY: Clear to auscultation. Breath sounds equal bilaterally. No wheezes , rales, or rhonchi. Friction rub noted between 3rd and 4th intercoastal space , midclavicular line. GASTROINTESTINAL: Abdomen soft, non-tender, nondistended. Bowel Sounds normoactive x4. MUSCULOSKELETAL: Extremities without clubbing, cyanosis, or edema. Moderately Tremulous. NEUROLOGICAL: Awake and alert. No focal neuro deficit. Moves all extremities. Normal speech. Anxious. Results - Labs CBC & Chem 7: 11/09/17 08:24 11/09/17 08:24 Microbiology 11/06/17 13:10 Blood - Peripheral Aerobic Blood Culture - Preliminary No growth in 2 days 11/06/17 13:10 Blood - Peripheral Anaerobic Blood Culture - Preliminary No growth in 2 days 11/06/17 13:20 Blood - Peripheral Aerobic Blood Culture - Preliminary No growth in 2 days 11/06/17 13:20 Blood - Peripheral Anaerobic Blood Culture - Preliminary No growth in 2 days Assessment and Plan - Plan Patient is a 42-year-old female with a history of major depression disorder, polysubstance abuse, and prior suicidal ideations who presented after intentional Tylenol overdose. She was admitted to critical care unit for aggressive treatment of acetylcysteine. She is now admitted to medical psych unit for further evaluation. Consulted for assistance for fever, increasing pain, increasing heart rate. Depression, suicidal ideation -Managed by psychiatry team EtOH withdrawal HX of DTs with seizure -Initially appeared to represent a SIRS, sepsis of unknown source. However lactic acid 0.8, UA negative, chest x-ray negative -Pro calcitonin, CRP both elevated with mod risk, however, clinically patient does not appear to have infectious process. UA negative. Denies symptomatology -cough, dysuria, abdominal pain. Reports tremors, increase anxiety and nausea. Patient appears to have withdrawal symptoms than infectious process. Possible elevation is secondary to withdrawal symptoms, increase metabolic stress -Vancomycin, Zosyn discontinued -Continue IV fluids for now -Blood cultures-no growth up-to-date -Tylenol for pain and fevers. Keep tylenol <2000mg/day -Per nursing, she is not meeting Ativan per CIWA requirements. Currently at 0 -Continue Librium, 10mg every 8. -Thiamine, multivitamin, folic acid -2 bags of the vitamin, folic acid and thiamine on admission -Seizure precaution-on Keppra, will wean off. -WBC trending up 16.3, Temp. 99.3 last evening. Will check CXR r/o infection. Nausea-resolving -Zofran PRN Insomnia -Resume Trazodone, dec. to 100 mg po q hs Anorexia, not eating Hx eating disorder -continue with IVF for now -Enc. PO intake -continue Ensure Atypical chest pain, possibly costochondritis as it is reproducible by palpation Pt. with hx of falls, had initial CT chest negative for acute finding, CXR no infection, no rib fractures continues to c/o significant pain, noted with friction rub. Low grade fever, 99.3. Prob. pleurisy from recent trauma, r/o infection, r/o PE (had initial CT chest, that was negative) -Lidoderm patch -Hold Ibuprofen PRN for now drop in H/H. Patient is status post EGD showing esophagitis -continue Robaxin 500 mg p.o. every 8 as needed. -Continue Tylenol PRN, keep < 2000 mg/day -will repeat CXR, D dimer (if positive, will need CTA), 12 lead EKG -will add Ultram 50 mg PO q 8 PRN -unable to use NSAIDs, prob. short course of steroids will be helpful. Anemia Status post EGD on 11/04/2017. Findings include LA Class A esophagitis, erythematous gastritis in the gastric antrum. Biopsies were taken of both areas -Appreciate GI input, continue to hold ibuprofen Hemoglobin 7.4, hematocrit 22.4 ,yest, today 8. 9 Likely dilutional, on IV fluids. NS at 50/hr -Continue Protonix 40 mg p.o. twice daily DVT prop SCDs Labs reviewed, stable. labs today pending, will f/u Code Status: Full code Discussed Condition With: RN, pt. Discharge Planning: Discharge planning per primary care team, [facility] will be going [facility].
[2017-11-09 08:49] LABS: Hematocrit 27.1 % (35.0-46.0); Hemoglobin 8.9 gm/dL (11.6-15.3); Mean Corpuscular HGB Conc 32.9 % (32.0-36.0); Mean Corpuscular Hemoglobin 30.4 pg (27.0-34.0); Mean Corpuscular Volume 92.5 fL (80.0-100.0); Mean Platelet Volume 8.2 fL (7.0-11.0); Platelet Count 317 th/mm3 (150-450); Red Blood Count 2.93 mil/mm3 (4.00-5.30); Red Cell Distribution Width 15.4 % (11.6-17.2); White Blood Count 16.3 th/mm3 (4.0-11.0)
[2017-11-09 09:20] LABS: Calcium 8.7 mg/dL (8.5-10.1); Carbon Dioxide 21.9 meq/L (21.0-32.0); Potassium 3.6 meq/L (3.5-5.1)
--- NOTE | 2017-11-09 11:03 | XR ---
EXAM DATE: 11/09/2017 12:00 AM EDT AGE/SEX: 42 years / Female INDICATIONS: Chest pain. CLINICAL DATA: This is the patient's subsequent encounter. Patient reports that signs and symptoms h ave been present for 1 week and indicates a pain score of 8/10. MEDICAL/SURGICAL HISTORY: Chronic obstructive pulmonary disease. None. COMPARISON: [facility] – [place], [place], CHEST 1V SINGLE AP, 11/06/2017. . FINDINGS: Study is abnormal with significant change. Mild interstitial edema is present with patchy airspace di sease in both lungs and trace pleural effusion on the left. There is no pneumothorax. The portion of the bony skeleton visualized is unremarkable. CONCLUSION: Deterioration as above with increased interstitial changes, bibasilar consolidative changes and trace left pleural effusion. Electronically signed by: Manfred Zaidi MD 11/09/2017 11:01 AM EDT
--- NOTE | 2017-11-09 12:07 | P.PNPSY ---
Subjective Chief Complaint: SA by OD in setting of EtOH Remarks: Patient seen and examined with nurse. Chart reviewed. Case discussed with nursing staff. Patient noted to be somewhat medication seeking but no behavioral issue otherwise. CIWA scores have been minimal, and the patient has been receiving only her scheduled low-dose Librium. On my examination today, the patient complains of some anxiety and dysphoria. No active SI voiced. She wants to be placed back on her scheduled psychotropics: Latuda, Prozac, trazodone and also wants to add scheduled hydroxyzine for anxiety. Cluster B personality traits noted. No physical complaints. Vital Signs Temp Pulse Resp BP Pulse Ox 11/09/17 06:00 98.2 F 60 16 129/59 L 97 11/08/17 18:00 99.3 F 80 18 116/64 94 L Intake and Output 11/08/17 11/09/17 11/09/17 22:59 06:59 14:59 Intake Total 2700 / 2700 480 / 480 Balance 2700 / 2700 480 / 480 Intake: IV 1000 / 1000 NS Inj 1,000 ML @ 50 mls/hr IV. 1000 / 1000 CONT .Q20H JANAY Rx#:[id number] Oral 1700 / 1700 480 / 480 Other: # Voids 3 Date of Last Bowel Movement 11/04/17 Laboratory Tests 11/09/17 11/09/17 11/09/17 08:24 08:24 10:18 WBC 16.3 H Hgb 8.9 L Plt Count 317 D D-Dimer Quant (PE/DVT) 1.35 H Sodium 136 Potassium 3.6 Chloride 105 Carbon Dioxide 21.9 Anion Gap 9 BUN 2 L Creatinine 0.83 Estimated GFR 75 L Random Glucose 90 Labs reviewed. EKG NSR with QTc 439ms, not prolonged. Review of Systems All other systems reviewed negative except as stated in HPI Mental Status Examination Appearance: Appropriate Consciousness: Alert Orientation: x4 Motor Activity: Normal gait, Other (No signs of GABAergic withdrawal noted. No other motor abnormalities noted.) Speech: Unremarkable Language: Adequate Fund of Knowledge: Adequate Attention and Concentration: Adequate Mood: Anxious, Other (Mildly dysphoric) Affect: Blunt Thought Process & Associations: Intact, Logical, Linear Thought Content: Appropriate Hallucination Type: None Delusion Type: None Suicidal Ideation: No Homicidal Ideation: No Insight: Poor Judgment: Poor Assessment and Plan - Assessment (1) Alcohol dependence with alcohol-induced mood disorder Code(s): F10.24 - Alcohol dependence with alcohol-induced mood disorder Status : Acute - Plan Plan: Add back home psychotropics at reduced doses with plans to re-titrate as appropriate. We will start Prozac 20mg today and titrate to 40mg tomorrow. Hospitalist midlevel has ordered trazodone 100mg (home dose reportedly 300mg); we will start the 100mg dose tonight. I will resume patient's Latuda. I will also add Atarax 25mg TID. R/B/A for med changes discussed with patient. Patient has no signs of withdrawal and vitals are stable. Discontinue scheduled Librium and monitor with CIWA with p.r.n. Ativan for any emerging withdrawal. Case discussed with mid-level from hospitalist service: anemia suspected to be dilutional and midlevel will order appropriate follow up studies for elevated D-dimer. Continue to monitor on the inpatient unit. Continue other medications and care as ordered. Justification for Continued Inpatient Stay: Medication changes. Discharge Planning: Anticipate psychiatric stabilization by the end of the week. Request Healthcare Surrogate/Guardian Advocate?: No
[2017-11-09] MEDS ORDERED: FLUoxetine 20 MG Capsule PO ONE (13:23)
[2017-11-09] MEDS: Thiamine Inj 100 MG in Sodium Chlor 0.9% Inj 100 ML IV.SIG SCH (14:57)
[2017-11-09] MEDS ORDERED: Vancomycin Inj 1,000 MG in Sodium Chlor 0.9% Inj 250 ML IV.SIG ONE (16:00)
--- NOTE | 2017-11-09 16:49 | CT ---
EXAM DATE: 11/09/2017 3:58 PM EDT AGE/SEX: 42 years / Female INDICATIONS: Chest pain and shortness of breath for two weeks. CLINICAL DATA: This is the patient's initial encounter. Patient reports that signs and symptoms have been present for 1 day and indicates a pain score of 4/10. MEDICAL/SURGICAL HISTORY: Hypertension. Chronic obstructive pulmonary disease. Pancreatitis. None . RADIATION DOSE: 3.69 CTDI (mGy) COMPARISON: No prior exams available for comparison. TECHNIQUE: Volumetric scanning was performed using a multi-row detector CT scanner during bolus infu jerome of 75 ml Omnipaque 350 (iohexol) nonionic water-soluble contrast as a single exam dose. The ray a was post processed with a variety of visualization algorithms including full volume maximum intensi ty projection and sliding thin slab reformation. Using automated exposure control and adjustment of t he mA and/or kV according to patient size, radiation dose was kept as low as reasonably achievable to obtain optimal diagnostic quality images. DICOM format image data is available electronically for r eview and comparison. FINDINGS: Pulmonary Arteries: No filling defects are seen in the pulmonary arteries out to the subsegmental ve ssels. The left and right pulmonary arteries are normal in diameter. Lung: Bibasilar consolidation. Patchy airspace disease in the left upper lobe with groundglass densi ties also seen bilaterally.. Effusion: Moderate bilateral pleural effusions. Mediastinum: No evidence of mediastinal or hilar adenopathy. Other: The axilla is unremarkable. CONCLUSION: 1. No evidence for pulmonary embolism. 2. Moderate bilateral pleural effusions. 3. Bibasilar consolidation with patchy airspace disease in the left upper lobe and scattered groundg lass densities. Electronically signed by: Warren Monroe MD 11/09/2017 4:47 PM EDT
--- NOTE | 2017-11-09 20:51 | ECG ---
Date Performed: 11/09/2017 Time Performed: 09:22:29 PTAGE: 42 years EKG: Sinus rhythm NORMAL ECG PREVIOUS TRACING : 11/05/2017 09.35 Since the previous tracing, no significant change noted DOCTOR: Brett Rosas Interpretating Date/Time 11/09/2017 20:50:41
[2017-11-09] MEDS ORDERED: traZODone 100 MG Tablet PO SCH (21:00)
[2017-11-10] MEDS: Methocarbamol 500 MG Tablet PO PRN ×2 (00:12→10:34)
[2017-11-10] MEDS: Acetaminophen 500 MG Tablet PO PRN (04:47)
[2017-11-10 07:56] LABS: Hematocrit 23.6 % (35.0-46.0); Mean Corpuscular Volume 91.1 fL (80.0-100.0); Mean Platelet Volume 7.8 fL (7.0-11.0); Platelet Count 367 th/mm3 (150-450); Red Blood Count 2.59 mil/mm3 (4.00-5.30); Red Cell Distribution Width 15.4 % (11.6-17.2); White Blood Count 12.5 th/mm3 (4.0-11.0)
[2017-11-10 08:11] LABS: Calcium 8.2 mg/dL (8.5-10.1); Potassium 3.7 meq/L (3.5-5.1)
[2017-11-10] MEDS: Lidocaine 5% Patch T-DERMAL SCH (08:17)
[2017-11-10] MEDS: Folic Acid 1 MG Tablet PO SCH (08:19)
[2017-11-10] MEDS ORDERED: levETIRAcetam 500 MG Tablet PO SCH (09:00)
[2017-11-10] MEDS ORDERED: FLUoxetine 20 MG Capsule PO SCH (09:00)
[2017-11-10] MEDS ORDERED: Furosemide 20 MG Tablet PO ONE (10:04)
[2017-11-10] MEDS ORDERED: guaiFENesin/Dextromethorphan 200 MG/20 MG 10 ML UDC PO PRN (10:42)
--- NOTE | 2017-11-10 10:54 | P.PN ---
Subjective Interval history: Follow up visit ETOH withdrawal, tylenol overdose. Patient seen and examined today. C/O right anterior chest wall pain, Ultram helping some. Still feels "fluttering" sensation, friction rub palpated. Eating better, at least 50%. Drinking fluids okay. + dry cough, non productive. No fever overnight. No tremors, less anxious. No sob, has been getting up and moving some. Started on abx yesterday. States she had pna 2 years ago and was on mechanical ventilation. Physical Exam Vital signs: Vital Signs 11/09/17 18:00 11/10/17 06:00 Temperature 98.4 F 98.3 F Pulse Rate 61 99 H Respiratory Rate 15 15 Blood Pressure 123/72 131/79 Pulse Oximetry 97 Intake & Output 11/09/17 11/10/17 11/10/17 18:59 06:59 18:59 Intake Total 1959 1290 / 1290 360 / 360 Balance 1959 1290 / 1290 360 / 360 Weight 40 kg Intake: IV 1000 / 1000 450 / 450 NS Inj 1,000 ML @ 50 mls/hr IV. 1000 / 1000 CONT .Q20H JANAY Rx#:[id number] Maxipime Inj 1,000 MG In NS Inj 200 / 200 100 ML @ 200 mls/hr IV.SIG Q12H JANAY Rx#:[id number] Vancomycin Inj 1,000 MG In NS 250 / 250 Inj 250 ML @ 200 mls/hr IV.SIG ONCE ONE Rx#:[id number] Oral 960 / 960 840 / 840 360 / 360 Other: # Voids 2 1 Date of Last Bowel Movement 11/04/17 11/04/17 # Bowel Movements 0 Narrative: GENERAL: This is a thin appearing, well-developed patient, in no apparent distress. Appears older than stated age. SKIN: Warm and dry. HEENT: Normocephalic. Pupils equal round and reactive. Nose without bleeding. Airway patent. NECK: Trachea midline. CARDIOVASCULAR: Regular rate and rhythm without murmurs, gallops, or rubs. RESPIRATORY: Diminished at bases, faint bibasilar Rales. Friction rub noted between 3rd and 4th intercoastal space, midclavicular line--improved GASTROINTESTINAL: Abdomen soft, non-tender, nondistended. Bowel Sounds normoactive x4. MUSCULOSKELETAL: Extremities without clubbing, cyanosis, or edema. Moderately Tremulous. NEUROLOGICAL: Awake and alert. No focal neuro deficit. Moves all extremities. Normal speech. Results - Labs CBC & Chem 7: 11/10/17 06:51 11/10/17 06:51 Laboratory Results - last 24 hr 11/09/17 11/10/17 11/10/17 10:18 06:51 06:51 WBC 12.5 H RBC 2.59 L Hgb 8.0 L Hct 23.6 L MCV 91.1 MCH 31.0 MCHC 34.0 RDW 15.4 Plt Count 367 MPV 7.8 D-Dimer Quant (PE/DVT) 1.35 H Sodium 141 Potassium 3.7 Chloride 109 H Carbon Dioxide 23.0 Anion Gap 9 BUN 3 L Creatinine 0.83 Estimated GFR 75 L Random Glucose 91 Calcium 8.2 L Microbiology 11/06/17 13:10 Blood - Peripheral Aerobic Blood Culture - Preliminary No growth in 3 days 11/06/17 13:10 Blood - Peripheral Anaerobic Blood Culture - Preliminary No growth in 3 days 11/06/17 13:20 Blood - Peripheral Aerobic Blood Culture - Preliminary No growth in 3 days 11/06/17 13:20 Blood - Peripheral Anaerobic Blood Culture - Preliminary No growth in 3 days - Imaging Impressions Chest CTA 11/09/17 00:00 CONCLUSION: 1. No evidence for pulmonary embolism. 2. Moderate bilateral pleural effusions. 3. Bibasilar consolidation with patchy airspace disease in the left upper lobe and scattered groundglass densities. Chest X-Ray 11/09/17 00:00 CONCLUSION: Deterioration as above with increased interstitial changes, bibasilar consolidative changes and trace left pleural effusion. Assessment and Plan - Plan Patient is a 42-year-old female with a history of major depression disorder, polysubstance abuse, and prior suicidal ideations who presented after intentional Tylenol overdose. She was admitted to critical care unit for aggressive treatment of acetylcysteine. She is now admitted to medical psych unit for further evaluation. Consulted for assistance for fever, increasing pain, increasing heart rate. Depression, suicidal ideation -Managed by psychiatry team -Restarted on Prozac and Latuda -Cleared by psych for dc to med floor to complete tx for PNA. Needs to f/u with psych as OP. D/W Dr. Vasquez EtOH withdrawal HX of DTs with seizure -initially with withdrawal sx, now improving -off Librium now -CIWA 0, continue Ativan PRN -Change to PO thiamine and Folic acid. -Seizure precautions -Started on Keppra per psych, for seizure prevention. Weaning down, continue with Keppra daily -Counseling done Poss SIRS initially on 10/27, pro-calcitonin, CRP elevated. Workup negative, lactic acid 0.8. Was initially on antibiotics, cultures done. Antibiotics eventually discontinued. on 11/09--Patient with continued pain to right anterior chest wall, and friction rub noted. Chest x-ray done-reviewed. Patient with left upper lobe pneumonia, likely HCAP. CT done, negative for PE, Bibasilar consolidation with patchy airspace disease in the left upper lobe and scattered groundglass densities. Mild CHF per CXR findings as well -Tylenol for pain and fevers. Keep tylenol <2000mg/day -WBC trending trending down 16.3-->12.5 -started on Vanco and Cefepime, continue for another 48 hours and then change to PO -will give Lasix 20 mg po x 1 -Stop IVF -Complaining of dry cough Robitussin as needed added as well as lozenges Nausea-resolving -Zofran PRN Insomnia -Continue Trazodone, inc. to 200 mg po q hs per pscyh Anorexia, not eating Hx eating disorder -Enc. PO intake -continue Ensure Atypical chest pain, possibly costochondritis as it is reproducible by palpation Pt. with hx of falls, had initial CT chest negative for acute finding, CXR no infection, no rib fractures continues to c/o significant pain, noted with friction rub. Low grade fever, 99.3. Prob. pleurisy from recent trauma, r/o infection, r/o PE (had initial CT chest, that was negative) -Lidoderm patch -Hold Ibuprofen PRN for now drop in H/H. Patient is status post EGD showing esophagitis -continue Robaxin 500 mg p.o. every 8 as needed. -Continue Tylenol PRN, keep < 2000 mg/day -imaging studies as noted above, + PNA. -continue Ultram 50 mg PO change to 6 PRN. D/W pt. no IV narcotics. -unable to use NSAIDs, prob. short course of steroids will be helpful--at this time, we will hold off, we will treat the pneumonia. Friction rub is much more improved. Anemia Status post EGD on 11/04/2017. Findings include LA Class A esophagitis, erythematous gastritis in the gastric antrum. Biopsies were taken of both areas -Appreciate GI input, continue to hold ibuprofen Hemoglobin 7.4, hematocrit 22.4 ,yest, today 8. Likely dilutional, on IV fluids. -Continue Protonix 40 mg p.o. twice daily DVT prop SCDs Repeat labs in the morning Discussed with psychiatry, patient has been clear for discharge home. She is to follow-up as outpatient with psychiatrist. Patient needs further inpatient care to treat pneumonia. Likely needs 2 more days of antibiotics and then changed to p.o. Code Status: Full code Discussed Condition With: Patient, RN, Dr. Vasquez Discharge Planning: Discharge planning per primary care team
[2017-11-10] MEDS: Thiamine Inj 100 MG in Sodium Chlor 0.9% Inj 100 ML IV.SIG SCH (11:56)
--- NOTE | 2017-11-10 12:10 | P.DSPSY ---
Psychiatry Discharge Summary Inpatient Psychiatric care?: Yes Advance Directives: No Mental Health Advance Directive: No Health Care Proxy: No - Admission Admission Date: November 04, 2017 15:52 - Admission Diagnosis (1) Bipolar disorder, current episode depressed, mild or moderate severity, unspecified Code(s): F31.30 - Bipolar disorder, current episode depressed, mild or moderate severity, unspecified (2) Alcohol dependence with alcohol-induced mood disorder Code(s): F10.24 - Alcohol dependence with alcohol-induced mood disorder Brief History: Patient is a 42-year-old female with a history of bipolar depression. She is also been diagnosed with anorexia anxiety disorder and PTSD. She has had multiple admissions through [facility] with the last one being in September 2017. Today she is evaluated on the medical/surgical unit after an overdose on Tylenol yesterday. Patient says she had been abstinent from alcohol but began drinking and had 4-5 shots of liquor. Subsequently, she impulsively took 20 pills of Tylenol. She denies any recent stressors or events that may have led to this attempt. She describes her home medications trazodone 250 mg p.o. nightly, Prozac 40 mg daily, Latuda 40 mg daily, gabapentin 300 mg p.o. 3 times daily. Per history patient has a history of regular alcohol use. In the last couple weeks, patient admits to a daily depressed mood, low energy, and fleeting suicidal ideation. She denies any recent manic episodes. She denies auditory or visual hallucinations. She was admitted for similar reasons on her last admission. Past psych: ": psychiatric history of bipolar disorder, alcohol use disorder, eating disorder, borderline personality disorder, anxiety, previous psychiatric hospitalizations, last hospitalization here at [facility] in 2017 under my care, four prior suicide attempts, history of self cutting behavior without SI, established outpatient care in [facility], " Past medical:COPD, history of DTs Past Famhx:"Mother with depression, Aunt with bipolar disorder, no suicides in the family. 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 A general medical and neurological consultation were obtained. Appropriate precautions were in place throughout patient's hospital stay. Patient was seen and examined on the unit by psychiatry and also visited by counselor. Psychotropic medications were adjusted. Withdrawal was managed with a short course of scheduled Librium and also CIWA scale with Ativan for the management of any breakthrough withdrawal. There was no evidence of any suicidality or homicidality on the inpatient unit. There was no evidence of self-care deficit from mental illness as defined under the Leroy act. On the day of discharge: Patient seen and examined with nurse. Chart reviewed. Case discussed with nursing staff. No behavioral issues noted overnight. Patient is noted to still be somewhat medication seeking. Case discussed with counselor. Case discussed with mid-level provider from the hospitalist service, and we agree that patient's medical issues (namely PNA) are becoming primary and so a move back to the medical floor is appropriate as the patient is psychiatrically stable. On my exam, patient is in agreement with return to medical floor. She feels that she is psychiatrically stable. She does request titration of her trazodone to help with sleep (which I have ordered after cautioning patient about the risk of delirium in medically complex patients with psychotropics) but otherwise feels that she is doing well with psychotropic medications. She denies any suicidal or homicidal ideation, intent or plan. I can elicit no severe depressive or hypomanic/manic symptoms. She denies any audiovisual hallucinations. I can elicit no delusional material. She has spoken with the health care assistant through [facility] and plans to pursue 12 step programming for her alcohol dependence and also plans to enter into a chemical dependency program called [facility]. She denies any side effects from medications. Suicide and violence risk assessment on day of discharge both suggest lower imminent risk from mental illness as defined under the Leroy act and the patient's level of function is adequate for transfer to the medical floor. Patient's main chronic risk factors for self-harm include cluster B personality style and alcohol use issues. Cluster B personality style would not be ameliorated (and might in fact be worsened) by a longer inpatient psychiatric hospital stay, and alcohol use issues will be addressed in the manner arranged by the [facility] health care assistant. Patient is psychiatrically cleared for discharge to the medical floor. I would recommend psychiatric consultation on the medical floor to continue to monitor psychotropic medications. After discharge from the medical floor, she should follow up with [facility] for outpatient mental health care, ideally within 2-3 days of discharge, and pursue chemical dependency treatment as outlined above. I have counseled the patient to return to the psychiatric emergency room for any concerning symptoms as part of a general safety plan. - Discharge Discharge Date: 11/10/17 - Discharge Diagnosis (1) Alcohol dependence with alcohol-induced mood disorder Diagnosis: Principal (Mood disorder resolved) Code(s): F10.24 - Alcohol dependence with alcohol-induced mood disorder Status : Acute Discharge Disposition: [facility] [place] Medical floor - Discharge Instructions Discharge Diet: Heart Healthy Diet Activities You Can Perform: Weight Bearing As Tolerat - Discharge Time <= 30 minutes Mental Status Examination Appearance: Appropriate Consciousness: Alert Orientation: x4 Motor Activity: Normal gait, Other (No signs of any withdrawal noted. No motor abnormalities noted.) Speech: Unremarkable Language: Adequate Fund of Knowledge: Adequate Attention and Concentration: Adequate Memory: Unremarkable (Grossly intact on clinical exam) Mood: Appropriate Affect: Appropriate Thought Process & Associations: Intact, Logical, Linear Thought Content: Appropriate Hallucination Type: None Delusion Type: None Suicidal Ideation: No Suicidal Plan: No Suicidal Intention: No Homicidal Ideation: No Homicidal Plan: No Homicidal Intention: No Mental Status Exam Remarks: Insight and judgment are likely chronically poor. Discharge/Advance Care Plan - Results Vital Signs: Last Vital Signs Temp 98.3 F 11/10/17 06:00 Pulse 99 H 11/10/17 06:00 Resp 15 11/10/17 06:00 BP 131/79 11/10/17 06:00 Pulse Ox 97 11/09/17 18:00 Lab Results: Abnormal Lab Results 11/10/17 11/10/17 06:51 06:51 WBC 12.5 H RBC 2.59 L Hgb 8.0 L Hct 23.6 L MCV 91.1 MCH 31.0 MCHC 34.0 RDW 15.4 Plt Count 367 MPV 7.8 Sodium 141 Potassium 3.7 Chloride 109 H Carbon Dioxide 23.0 Anion Gap 9 BUN 3 L Creatinine 0.83 Estimated GFR 75 L Random Glucose 91 Calcium 8.2 L Laboratory Results Hemoglobin A1c 5.5 % (4.3-6.0) 11/05/17 06:52 Triglycerides 42 mg/dL (42-150) 11/05/17 06:52 Cholesterol 124 mg/dL (120-200) 11/05/17 06:52 LDL Cholesterol, Calc 30 mg/dL (0-99) 11/05/17 06:52 HDL Cholesterol 85.6 mg/dL (40.0-60.0) H 11/05/17 06:52 TSH 2.010 uIU/mL (0.358-3.740) 11/05/17 06:52 Urine Culture Comments Culture not ind 11/06/17 16:20 Summary of Procedures: None done. Imaging: ITS Impressions Chest CTA 11/09/17 00:00 CONCLUSION: 1. No evidence for pulmonary embolism. 2. Moderate bilateral pleural effusions. 3. Bibasilar consolidation with patchy airspace disease in the left upper lobe and scattered groundglass densities. Chest X-Ray 11/09/17 00:00 CONCLUSION: Deterioration as above with increased interstitial changes, bibasilar consolidative changes and trace left pleural effusion. Pending Results: None - Medications Number of antipsychotic medications at discharge: 1 - Discharge Care Plan Goals to Promote Your Health: * To prevent worsening of your condition and complications * To maintain your health at the optimal level Directions to Meet Your Goals: Take your medications as prescribed Follow your dietary instruction Follow activity as directed Keep your appointments as scheduled Take your immunizations and boosters as scheduled If your symptoms worsen call your PCP, if no PCP go to Urgent Care Center or Emergency Room For 30/08 questions related to your inpatient stay or results of tests pending at discharge, please contact Dr. Yan Vasquez MD at [phone] Smoking is Dangerous to Your Health. Avoid second hand smoking
[2017-11-10] MEDS ORDERED: Vancomycin Consult Pharmacy OTHER PRN (13:20)
[2017-11-10] MEDS ORDERED: Benzocaine/Menthol 15 MG/3.6 MG SF Lozenge BUCCAL PRN (14:30)
[2017-11-10] MEDS ORDERED: Vancomycin Inj 750 MG in Sodium Chlor 0.9% Inj 250 ML IV.SIG SCH (17:00)
[2017-11-10 18:04] VITALS: BP 137/89; PULSE 72; RESP 18; TEMP 98; O2SAT 92
[2017-11-12] MEDS ORDERED: Pharmacy Ordered Lab Info OTHER ONE (22:45)
== END 2017-11-10 19:32 | disposition short-term general hospital (02) ==
LOC: H4EA 15:52
PROVIDERS: ADMIT Psychiatry & Neurology Psychiatry; ATTEND Psychiatry & Neurology Psychiatry

== ENCOUNTER 2017-11-10 13:17 | Inpatient (IN) ==
[2017-11-10] MEDS ORDERED: Acetaminophen 325 MG Tablet PO PRN (17:04)
--- NOTE | 2017-11-11 19:19 | P.HPIM ---
History of Present Illness Primary Care Physician: UNKNOWN Chief Complaint: Cough, shortness of breath History of Present Illness: This patient is a 42-year-old female with a diagnosis of bipolar disorder. She has also been diagnosed with anorexia anxiety disorder and posttraumatic stress disorder. The patient has had multiple couple admissions through our facility the last one being in September 2017. This admission was for a Tylenol overdose. The patient states that she was drunk at home and made a very poor decision taking a handful of Tylenol. She is not sure exactly how many she took. She initially was admitted to the intensive care unit and started on treatment for Tylenol overdose. She complains of having a depressed mood fatigue low energy. During the hospitalization the patient was also found to have bilateral lower lobe pneumonia and anemia and underwent an EGD. She was discharged from the psych unit and now is under my care. Family history hypertension Inpatient Certification: I certify that the inpatient services were ordered in accordance with Medicare regulations governing the order. This includes certification that hospital inpatient services are reasonable and necessary and in the case of services not specified as inpatient-only under 42 CFR 419.22(n), that they are appropriately provided as inpatient services in accordance to with the 2-midnight benchmark under 43 CFR 412.3(e) Estimated Total Length of Stay (Days): 2 Plans for Post Hospital Care: Home Review of Systems All other systems reviewed negative except as stated in HPI PMFSH - History History Provided By: Patient - Medical History Medical History: Medical History (Last Reviewed 11/11/17 @ 19:09 by Morales Grey MD) Anorexia Anxiety Bulimia COPD (chronic obstructive pulmonary disease) GERD (gastroesophageal reflux disease) Gastric ulcer Major depression Pancreatitis Pneumonia - Surgical History Surgical History: Surgical History (Last Reviewed 11/11/17 @ 19:09 by Morales Grey MD) No history of previous surgery - Family History Family History: Family History (Last Reviewed 11/11/17 @ 19:09 by Morales Grey MD) Other Hypertension - Tobacco History Second Hand Smoke Exposure: Yes Tobacco Use In Past 30 Days: Yes Smoking Status: Heavy tobacco smoker Tobacco Type: Cigarettes - Alcohol History How Often Do You Have a Drink Containing Alcohol: 4 or more times a week - Substance Use History Substance History: Active Abuse Medications and Allergies Active Medications: Active Medications Acetaminophen (Tylenol) 650 mg PO Q4H PRN PRN Reason: Temp > 100.4 Cefepime HCl 1,000 mg/ Sodium (Chloride) 100 mls @ 200 mls/hr IV.SIG Q12H JANAY Last Infusion: 11/11/17 15:59 Dose: Infused Miscellaneous (Pill Splitter) 1 each OTHER UNSCH PRN PRN Reason: PILL SPIT Last Admin: 11/11/17 02:48 Dose: 1 each Ondansetron HCl (Zofran Inj) 4 mg IV.PUSH Q6H PRN PRN Reason: NAUSEA OR VOMITING Tramadol HCl (Ultram) 25 mg PO Q6H PRN PRN Reason: PAIN SCALE 6 TO 10 Last Admin: 11/11/17 15:11 Dose: 25 mg Allergies Allergy/AdvReac Type Severity Reaction Status Date / Time lithium Allergy Severe Seizures Verified 11/02/17 18:56 Home Medications Medication Instructions Recorded Confirmed Type gabapentin 300 mg PO TID 11/10/17 11/10/17 History pantoprazole [Protonix] 40 mg PO BID 11/10/17 11/10/17 History trazodone 250 mg PO HS 11/10/17 11/10/17 History hydroxyzine HCl 25 mg PO TID PRN 11/11/17 11/11/17 History lurasidone [Latuda] 40 mg PO DAILY 11/11/17 11/11/17 History Exam Vital signs: Vital Signs 11/10/17 20:53 11/10/17 21:34 11/10/17 23:58 Temperature 98.1 F 98.3 F Pulse Rate 77 80 Respiratory Rate 16 20 16 Blood Pressure 129/60 144/75 H Pulse Oximetry 96 95 11/11/17 04:19 11/11/17 08:00 11/11/17 09:01 Temperature 98.6 F 97.9 F Pulse Rate 77 65 63 Respiratory Rate 17 16 Blood Pressure 135/82 158/70 H Pulse Oximetry 93 L 98 11/11/17 12:00 11/11/17 16:00 Temperature 98.6 F 97.8 F Pulse Rate 62 61 Respiratory Rate 16 16 Blood Pressure 154/72 H 152/72 H Pulse Oximetry 95 94 L Intake & Output 11/11/17 11/11/17 11/12/17 06:59 18:59 06:59 Intake Total 580 / 580 1410 / 1410 Balance 580 / 580 1410 / 1410 Weight 37.3 kg Intake: IV 100 / 100 100 / 100 Maxipime Inj 1,000 MG In NS Inj 100 / 100 100 / 100 100 ML @ 200 mls/hr IV.SIG Q12H JANAY Rx#:[id number] Oral 480 / 480 1310 / 1310 Other: # Voids 2 12 Date of Last Bowel Movement 11/10/17 Weight On Admission 24.5 kg Narrative: General patient in no acute distress, she appears cachectic HEENT extraocular movements are intact, clear oropharyngeal mucosa, no JVD Cardiovascular S1-S2 audible, RRR, no murmurs rubs or gallops Respiratory bibasilar crackles Abdomen soft, nontender, nondistended, normal bowel sounds Extremities no edema 2+ distal pulses in bilateral upper and lower extremities Neuro no neurological deficits Caprini VTE Risk Assessment Caprini VTE Risk Assessment: No/Low Risk (score <= 1) (Patient is ambulatory) Caprini Risk Assessment Model: Point Value = 1 Point Value = 2 Point Value = 3 Point Value = 5 Age 41-60 Minor surgery BMI > 25 kg/m2 Swollen legs Varicose veins or History of unexplained or recurrent spontaneous Oral contraceptives or hormone replacement Sepsis (< 1 month) Serious lung disease, including pneumonia (< 1 month) Abnormal pulmonary function Acute myocardial infarction Congestive heart failure (< 1 month) History of inflammatory bowel disease Medical patient at bed rest Age 61-74 Arthroscopic surgery Major open surgery (> 45 min) Laparoscopic surgery (> 45 min) Malignancy Confined to bed (> 72 hours) Immobilizing plaster cast Central venous access Age >= 75 History of VTE Family history of VTE Factor V Leiden Prothrombin [id number] Lupus anticoagulant Anticardiolipin antibodies Elevated serum homocysteine Heparin-induced thrombocytopenia Other congenital or acquired thrombophilia Stroke (< 1 month) Elective arthroplasty Hip, pelvis, or leg fracture Acute spinal cord injury (< 1 month) Prophylaxis Regimen: Total Risk Factor Score Risk Level Prophylaxis Regimen 0-1 Low Early ambulation 2 Moderate Order ONE of the following: *Sequential Compression Device (SCD) *Heparin 5000 units SQ BID 3-4 Higher Order ONE of the following medications: *Heparin 5000 units SQ TID *Enoxaparin/Lovenox 40 mg SQ daily (WT < 150 kg, CrCl > 30 mL/min) *Enoxaparin/Lovenox 30 mg SQ daily (WT < 150 kg, CrCl > 10-29 mL/min) *Enoxaparin/Lovenox 30 mg SQ BID (WT < 150 kg, CrCl > 30 mL/min) AND/OR *Sequential Compression Device (SCD) 5 or more Highest Order ONE of the following medications: *Heparin 5000 units SQ TID (Preferred with Epidurals) *Enoxaparin/Lovenox 40 mg SQ daily (WT < 150 kg, CrCl > 30 mL/min) *Enoxaparin/Lovenox 30 mg SQ daily (WT < 150 kg, CrCl > 10-29 mL/min) *Enoxaparin/Lovenox 30 mg SQ BID (WT < 150 kg, CrCl > 30 mL/min) AND *Sequential Compression Device (SCD) Assessment and Plan - Plan This patient is a 42-year-old female with a diagnosis of bipolar disorder. She has also been diagnosed with anorexia anxiety disorder and posttraumatic stress disorder. The patient has had multiple couple admissions through our facility the last one being in September 2017. This admission was for a Tylenol overdose. The patient states that she was drunk at home and made a very poor decision taking a handful of Tylenol. She is not sure exactly how many she took. She initially was admitted to the intensive care unit and started on treatment for Tylenol overdose. She complains of having a depressed mood fatigue low energy. During the hospitalization the patient was also found to have bilateral lower lobe pneumonia and anemia and underwent an EGD. She was discharged from the psych unit and now is under my care. 1. Sepsis secondary to bilateral lower lobe pneumonia. 2. Acute hypoxic respiratory failure secondary to #1 Patient is currently on 2 L of supplemental oxygen. We will continue to titrate the patient off supplemental oxygen. WBC count is downtrending and will follow up a CBC in the a.m. Continue IV antibiotics. If the patient's symptoms improve by tomorrow we will transfer her over to p.o. antibiotics and possibly discharge the patient. Blood cultures are negative. Continue breathing treatments as needed. 3. Anorexia We will add Ensure 3 times a day to each meal. Patient states that she has been having difficulties with anorexia since the age of 14. Patient will continue to follow-up with her psychiatrist outpatient after discharge. 4. Costochondritis Patient has some chest wall pain which has improved somewhat with pain medications. Continue current management. 5. Anemia The patient already underwent EGD which did not show any significant findings for bleeding. Hemoglobin is currently at 8 and seems to be fluctuating between 8 and 9.5. We will follow-up in a.m. CBC. If there is no significant change in the patient's hemoglobin level this can be worked up outpatient after discharge. No signs of active bleeding as of now. Patient is ambulatory.
--- NOTE | 2017-11-11 20:06 | P.PNIM ---
Subjective Interval history: Patient complains of some sob on exertion. She also has complaints of pain on her chest with palpation that is tolerable with po pain meds. No other complaints. Physical Exam Vital signs: Vital Signs 11/10/17 20:53 11/10/17 21:34 11/10/17 23:58 Temperature 98.1 F 98.3 F Pulse Rate 77 80 Respiratory Rate 16 20 16 Blood Pressure 129/60 144/75 H Pulse Oximetry 96 95 11/11/17 04:19 11/11/17 08:00 11/11/17 09:01 Temperature 98.6 F 97.9 F Pulse Rate 77 65 63 Respiratory Rate 17 16 Blood Pressure 135/82 158/70 H Pulse Oximetry 93 L 98 11/11/17 12:00 11/11/17 16:00 Temperature 98.6 F 97.8 F Pulse Rate 62 61 Respiratory Rate 16 16 Blood Pressure 154/72 H 152/72 H Pulse Oximetry 95 94 L Intake & Output 11/11/17 11/11/17 11/12/17 06:59 18:59 06:59 Intake Total 580 / 580 1410 / 1410 Balance 580 / 580 1410 / 1410 Weight 37.3 kg Intake: IV 100 / 100 100 / 100 Maxipime Inj 1,000 MG In NS Inj 100 / 100 100 / 100 100 ML @ 200 mls/hr IV.SIG Q12H JANAY Rx#:[id number] Oral 480 / 480 1310 / 1310 Other: # Voids 2 12 Date of Last Bowel Movement 11/10/17 Weight On Admission 24.5 kg Narrative: General patient in no acute distress, she appears cachectic HEENT extraocular movements are intact, clear oropharyngeal mucosa, no JVD Cardiovascular S1-S2 audible, RRR, no murmurs rubs or gallops Respiratory bibasilar crackles Abdomen soft, nontender, nondistended, normal bowel sounds Extremities no edema 2+ distal pulses in bilateral upper and lower extremities Neuro no neurological deficits Assessment and Plan - Plan This patient is a 42-year-old female with a diagnosis of bipolar disorder. She has also been diagnosed with anorexia anxiety disorder and posttraumatic stress disorder. The patient has had multiple couple admissions through our facility the last one being in September 2017. This admission was for a Tylenol overdose. The patient states that she was drunk at home and made a very poor decision taking a handful of Tylenol. She is not sure exactly how many she took. She initially was admitted to the intensive care unit and started on treatment for Tylenol overdose. She complains of having a depressed mood fatigue low energy. During the hospitalization the patient was also found to have bilateral lower lobe pneumonia and anemia and underwent an EGD. She was discharged from the psych unit and now is under my care. 1. Sepsis secondary to bilateral lower lobe pneumonia. 2. Acute hypoxic respiratory failure secondary to #1 Patient is currently on 2 L of supplemental oxygen. We will continue to titrate the patient off supplemental oxygen. WBC count is downtrending. Continue IV antibiotics. If the patient's symptoms improve by tomorrow we will transfer her over to p.o. antibiotics and possibly discharge the patient tomorrow. Blood cultures are negative. Continue breathing treatments as needed. 3. Anorexia Patient was counseled on the dangers of anorexia including severe electrolyte abnormalities. We will add Ensure 3 times a day to each meal. Patient states that she has been having difficulties with anorexia since the age of 14. Patient will continue to follow-up with her psychiatrist outpatient after discharge. 4. Costochondritis Patient has some chest wall pain which has improved somewhat with pain medications. Continue tramadol 5. Anemia The patient already underwent EGD which did not show any significant findings for bleeding. Hemoglobin is currently at 8 and seems to be fluctuating between 8 and 9.5. We will follow-up in a.m. CBC. If there is no significant change in the patient's hemoglobin level this can be worked up outpatient after discharge. No signs of active bleeding as of now.We will continue to monitor the patients vitals and labs for changes in hgb. Patient is ambulatory.
[2017-11-11] MEDS: traZODone 100 MG Tablet PO SCH (21:02)
[2017-11-11] MEDS: Gabapentin 300 MG Capsule PO SCH (21:04)
[2017-11-12] MEDS: Gabapentin 300 MG Capsule PO SCH ×3 (09:01→17:00)
--- NOTE | 2017-11-12 18:51 | P.PNIM ---
Subjective Interval history: Patient complains of some shortness of breath on exertion. She also says she has not had a bowel movement in approximately 5 days. She does not have any other complaints. Physical Exam Vital signs: Vital Signs 11/11/17 20:00 11/12/17 00:00 11/12/17 04:00 Temperature 98.1 F 97.3 F L 97.5 F L Pulse Rate 56 L 54 L 65 Respiratory Rate 18 18 17 Blood Pressure 137/68 106/55 L 101/55 L Pulse Oximetry 97 94 L 91 L 11/12/17 08:00 11/12/17 12:00 11/12/17 16:00 Temperature 97.7 F 97.9 F 98.0 F Pulse Rate 71 85 66 Respiratory Rate 17 18 18 Blood Pressure 92/61 L 110/71 128/71 Pulse Oximetry 92 L 92 L 95 Intake & Output 11/11/17 11/12/17 11/12/17 18:59 06:59 18:59 Intake Total 1410 / 1410 240 / 240 1949 / 1949 Balance 1410 / 1410 240 / 240 1949 / 1949 Weight 35.8 kg Intake: IV 100 / 100 150 / 150 Maxipime Inj 1,000 MG In NS Inj 100 / 100 100 ML @ 200 mls/hr IV.SIG Q12H JANAY Rx#:[id number] Levaquin 750 mg Premix Inj 150 150 / 150 ML @ 100 mls/hr IV.SIG Q24H JANAY Rx#:[id number] Oral 1310 / 1310 240 / 240 1800 / 1800 Other: # Voids 12 2 4 Date of Last Bowel Movement 11/10/17 Narrative: General patient in no acute distress, she appears cachectic HEENT extraocular movements are intact, clear oropharyngeal mucosa, no JVD Cardiovascular S1-S2 audible, RRR, no murmurs rubs or gallops Respiratory bibasilar crackles Abdomen soft, nontender, nondistended, normal bowel sounds Extremities no edema 2+ distal pulses in bilateral upper and lower extremities Neuro no neurological deficits Assessment and Plan - Plan This patient is a 42-year-old female with a diagnosis of bipolar disorder. She has also been diagnosed with anorexia anxiety disorder and posttraumatic stress disorder. The patient has had multiple couple admissions through our facility the last one being in September 2017. This admission was for a Tylenol overdose. The patient states that she was drunk at home and made a very poor decision taking a handful of Tylenol. She is not sure exactly how many she took. She initially was admitted to the intensive care unit and started on treatment for Tylenol overdose. She complains of having a depressed mood fatigue low energy. During the hospitalization the patient was also found to have bilateral lower lobe pneumonia and anemia and underwent an EGD. She was discharged from the psych unit and now is under my care. 1. Sepsis secondary to bilateral lower lobe pneumonia. 2. Acute hypoxic respiratory failure secondary to #1 Patient is currently on 2 L of supplemental oxygen. I discussed the case with the nurse and we will continue to titrate the patient off supplemental oxygen. Continue IV antibiotics. If the patient's symptoms improve by tomorrow we will transfer her over to p.o. antibiotics and possibly discharge the patient tomorrow. Blood cultures are negative. Continue breathing treatments as needed. PT evaluation. possible discharge for tomorrow. 3. Anorexia Patient was counseled on the dangers of anorexia including severe electrolyte abnormalities. We will add Ensure 3 times a day to each meal. Patient states that she has been having difficulties with anorexia since the age of 14. Patient will continue to follow-up with her psychiatrist outpatient after discharge. 4. Costochondritis Patient has some chest wall pain which has improved somewhat with pain medications. Continue tramadol. 5. Anemia No change in the patients plan for her anemia. The patient already underwent EGD which did not show any significant findings for bleeding. Hemoglobin is currently at 8 and seems to be fluctuating between 8 and 9.5. We will follow-up in a.m. CBC. If there is no significant change in the patient's hemoglobin level this can be worked up outpatient after discharge. No signs of active bleeding as of now.We will continue to monitor the patients vitals and labs for changes in hgb. Patient is ambulatory.
[2017-11-12] MEDS: traZODone 100 MG Tablet PO SCH (20:39)
[2017-11-13 06:11] LABS: Baso % (Auto) 0.5 % (0.0-2.0); Eos # (Auto) 0.4 th/mm3 (0.0-0.4); Eos % (Auto) 5.7 % (0.0-4.0); Hematocrit 27.5 % (35.0-46.0); Hemoglobin 9.1 gm/dL (11.6-15.3); Lymph # (Auto) 2.7 th/mm3 (1.0-4.8); Lymph % (Auto) 36.4 % (9.0-44.0); Mean Corpuscular HGB Conc 33.2 % (32.0-36.0); Mean Corpuscular Hemoglobin 30.5 pg (27.0-34.0); Mean Corpuscular Volume 91.7 fL (80.0-100.0); Mean Platelet Volume 7.1 fL (7.0-11.0); Mono # (Auto) 0.7 th/mm3 (0.0-0.9); Mono % (Auto) 9.9 % (0.0-8.0); Neut # (Auto) 3.5 th/mm3 (1.8-7.7); Neut % (Auto) 47.5 % (16.0-70.0); Platelet Count 771 th/mm3 (150-450); Red Cell Distribution Width 15.5 % (11.6-17.2); White Blood Count 7.4 th/mm3 (4.0-11.0)
[2017-11-13 06:20] LABS: Calcium 8.8 mg/dL (8.5-10.1); Carbon Dioxide 32.6 meq/L (21.0-32.0); Magnesium 1.9 mg/dL (1.5-2.5); Potassium 3.9 meq/L (3.5-5.1)
[2017-11-13 08:17] LABS: Eosinophils 7 % (0-4); Lymphocytes 39 % (9-44); Metamyelocytes 1 % (0-1); Monocytes 6 % (0-8); Platelet Morphology Normal (Normal)
[2017-11-13] MEDS: Gabapentin 300 MG Capsule PO SCH ×3 (08:32→18:35)
--- NOTE | 2017-11-13 19:53 | P.PNIM ---
Subjective Interval history: Patient says she has shortness of breath on exertion. She is also requesting milk of magnesium for constipation. Physical Exam Vital signs: Vital Signs 11/12/17 20:00 11/13/17 00:00 11/13/17 04:00 Temperature 97.2 F L 98 F 98 F Pulse Rate 86 76 76 Respiratory Rate 20 18 18 Blood Pressure 106/71 98/53 L 103/63 Pulse Oximetry 97 94 L 94 L 11/13/17 08:00 11/13/17 12:00 11/13/17 16:00 Temperature 98.2 F 98.2 F 97.2 F L Pulse Rate 81 63 66 Respiratory Rate 18 18 18 Blood Pressure 98/55 L 113/68 114/68 Pulse Oximetry 93 L 97 93 L Intake & Output 11/13/17 11/13/17 11/14/17 06:59 18:59 06:59 Intake Total 1915 Balance 1915 Weight 30.6 kg Intake: IV 150 / 150 Levaquin 750 mg Premix Inj 150 150 / 150 ML @ 100 mls/hr IV.SIG Q24H JANAY Rx#:[id number] Oral 1915 1800 / 1799 Other: # Voids 10 3 Narrative: General patient in no acute distress, she appears cachectic HEENT extraocular movements are intact, clear oropharyngeal mucosa, no JVD Cardiovascular S1-S2 audible, RRR, no murmurs rubs or gallops Respiratory bibasilar crackles Abdomen soft, nontender, nondistended, normal bowel sounds Extremities no edema 2+ distal pulses in bilateral upper and lower extremities Neuro no neurological deficits Results - Labs CBC & Chem 7: 11/13/17 05:40 11/13/17 05:40 Laboratory Results - last 24 hr 11/13/17 11/13/17 05:40 05:40 WBC 7.4 RBC 3.00 L Hgb 9.1 L Hct 27.5 L MCV 91.7 MCH 30.5 MCHC 33.2 RDW 15.5 Plt Count 771 H D MPV 7.1 Prelim Diff (Auto) Slide review pending Neut % (Auto) 47.5 Lymph % (Auto) 36.4 [place] % (Auto) 9.9 H Eos % (Auto) 5.7 H Baso % (Auto) 0.5 Neut # (Auto) 3.5 Lymph # (Auto) 2.7 [place] # (Auto) 0.7 Eos # (Auto) 0.4 Baso # (Auto) 0.0 WBC Differential Manual diff final Seg Neuts % (Manual) 43 Band Neuts % (Manual) 1 Lymphocytes % (Manual) 39 Monocytes % (Manual) 6 Eosinophils % (Manual) 7 H Basophils % (Manual) 3 H Metamyelocytes % (Man) 1 Abs Neuts (Manual) 3.3 Differential Comment . Platelet Estimate High H Platelet Morphology Normal Hematology Comments Sodium 138 Potassium 3.9 Chloride 98 Carbon Dioxide 32.6 H Anion Gap 7 BUN 3 L Creatinine 0.82 Estimated GFR 76 L Random Glucose 86 Calcium 8.8 Magnesium 1.9 Assessment and Plan - Plan This patient is a 42-year-old female with a diagnosis of bipolar disorder. She has also been diagnosed with anorexia anxiety disorder and posttraumatic stress disorder. The patient has had multiple couple admissions through our facility the last one being in September 2017. This admission was for a Tylenol overdose. The patient states that she was drunk at home and made a very poor decision taking a handful of Tylenol. She is not sure exactly how many she took. She initially was admitted to the intensive care unit and started on treatment for Tylenol overdose. She complains of having a depressed mood fatigue low energy. During the hospitalization the patient was also found to have bilateral lower lobe pneumonia and anemia and underwent an EGD. She was discharged from the psych unit and now is under my care. 1. Sepsis secondary to bilateral lower lobe pneumonia. 2. Acute hypoxic respiratory failure secondary to #1 Patient is currently on 2 L of supplemental oxygen. We attempted to titrate her off of supplements oxygen however the patient began to desat into the mid 80s on ambulation. Continue IV antibiotics. We will continue IV antibiotics for today. Blood cultures are negative. Continue breathing treatments as needed. PT evaluation. possible discharge for tomorrow, patient may require supplemental oxygen on discharge. 3. Anorexia Patient was counseled on the dangers of anorexia including severe electrolyte abnormalities. Ensure 3 times daily Patient states that she has been having difficulties with anorexia since the age of 14. Patient will continue to follow-up with her psychiatrist outpatient after discharge. 4. Costochondritis Patient has some chest wall pain which has improved somewhat with pain medications. Continue tramadol. 5. Anemia No change in the patients plan for her anemia. The patient already underwent EGD which did not show any significant findings for bleeding. Hemoglobin is currently at 8 and seems to be fluctuating between 8 and 9.5. We will follow-up in a.m. CBC. If there is no significant change in the patient's hemoglobin level this can be worked up outpatient after discharge. No signs of active bleeding as of now.We will continue to monitor the patients vitals and labs for changes in hgb. 6. Constipation The patient will be given 1 dose of milk of mag today. Patient is ambulatory.
[2017-11-13] MEDS: traZODone 100 MG Tablet PO SCH (23:11)
[2017-11-14] MEDS: Gabapentin 300 MG Capsule PO SCH ×3 (08:49→17:58)
--- NOTE | 2017-11-14 10:06 | P.PN ---
Subjective Interval history: This is a Pleasant 42 y/o Female with Bipolar disorder, Anorexia, Anxiety disorder, PTSD, recent admission due to Tylenol overdose, During the hospitalization the patient was also found to have bilateral lower lobe pneumonia and anemia and underwent an EGD. 11/14: Stable in her bedroom no nausea, vomit or diarrhea, okay to discharge discussed with Senior Network Engineer the patient has no insurance and not able to give her oxygen at home unless she pays for it. Physical Exam Vital signs: Vital Signs 11/13/17 12:00 11/13/17 16:00 11/13/17 20:00 Temperature 98.2 F 97.2 F L 97 F L Pulse Rate 63 66 76 Respiratory Rate 18 18 18 Blood Pressure 113/68 114/68 123/64 Pulse Oximetry 97 93 L 95 Pulse Oximetry [Resting on Room Air] Pulse Oximetry [Resting with Oxygen] 11/14/17 00:00 11/14/17 04:00 11/14/17 08:46 Temperature 98.1 F 97.9 F Pulse Rate 76 85 Respiratory Rate 18 17 Blood Pressure 117/56 L 98/54 L Pulse Oximetry 96 95 Pulse Oximetry [Resting on Room Air] 86 L Pulse Oximetry [Resting with Oxygen] 93 L Intake & Output 11/13/17 11/14/17 11/14/17 18:59 06:59 18:59 Intake Total 1949 / 1949 960 / 960 150 / 150 Balance 1949 / 1949 960 / 960 150 / 150 Weight 35.9 kg Intake: IV 150 / 150 150 / 150 Levaquin 750 mg Premix Inj 150 150 / 150 150 / 150 ML @ 100 mls/hr IV.SIG Q24H [facility] Rx#:[id number] Oral 1800 / 1800 960 / 960 Other: # Voids 3 6 Narrative: General patient in no acute distress, she appears cachectic HEENT extraocular movements are intact, clear oropharyngeal mucosa, no JVD Cardiovascular S1-S2 audible, RRR, no murmurs rubs or gallops Respiratory decreased breath sounds bilateral, no wheezing or crackles. Abdomen soft, nontender, nondistended, normal bowel sounds Extremities no edema 2+ distal pulses in bilateral upper and lower extremities Neuro no neurological deficits Results - Labs CBC & Chem 7: 11/13/17 05:40 11/13/17 05:40 Assessment and Plan - Plan This patient is a 42-year-old female with a diagnosis of bipolar disorder. She has also been diagnosed with anorexia anxiety disorder and posttraumatic stress disorder. The patient has had multiple couple admissions through our facility the last one being in September 2017. This admission was for a Tylenol overdose. The patient states that she was drunk at home and made a very poor decision taking a handful of Tylenol. She is not sure exactly how many she took. She initially was admitted to the intensive care unit and started on treatment for Tylenol overdose. She complains of having a depressed mood fatigue low energy. During the hospitalization the patient was also found to have bilateral lower lobe pneumonia and anemia and underwent an EGD. She was discharged from the psych unit and now is under my care. 1. Sepsis secondary to bilateral lower lobe pneumonia. 2. Acute hypoxic respiratory failure secondary to #1 Patient is currently on 2 L of supplemental oxygen. We attempted to titrate her off of supplements oxygen however the patient began to desat into the mid 80s on ambulation. Continue IV antibiotics. We will continue IV antibiotics for today. Blood cultures are negative. Continue breathing treatments as needed. PT evaluation. Okay to discharge patient but not possible to give oxygen she will need to pay for it. 3. Anorexia Patient was counseled on the dangers of anorexia including severe electrolyte abnormalities. Ensure 3 times daily Patient states that she has been having difficulties with anorexia since the age of 14. Patient will continue to follow-up with her psychiatrist outpatient after discharge. 4. Costochondritis Patient has some chest wall pain which has improved somewhat with pain medications. Continue tramadol. 5. Anemia No change in the patients plan for her anemia. The patient already underwent EGD which did not show any significant findings for bleeding. Hemoglobin is currently at 8 and seems to be fluctuating between 8 and 9.5. We will follow-up in a.m. CBC. If there is no significant change in the patient's hemoglobin level this can be worked up outpatient after discharge. No signs of active bleeding as of now.We will continue to monitor the patients vitals and labs for changes in hgb. 6. Constipation Improved. Patient is ambulatory. Code Status: Full code. Discussed Condition With: patient, nurse and shipping manager. Discharge Planning: Expected once she is able to be off oxygen or be able to pay for oxygen to go home.
[2017-11-14] MEDS ORDERED: Glycerin Adult 2 GM Supp RECTAL ONE (11:08)
[2017-11-14 21:29] VITALS: RESP 16
[2017-11-14] MEDS: traZODone 100 MG Tablet PO SCH (21:48)
[2017-11-15] MEDS: Gabapentin 300 MG Capsule PO SCH ×2 (09:36→13:05)
[2017-11-15 12:33] VITALS: BP 94/51; PULSE 70; TEMP 98.1; O2SAT 96
--- NOTE | 2017-11-15 16:33 | P.DS ---
Date of admission: 11/10/17 19:37 Primary care physician: UNKNOWN Attending physician on discharge: Florian Hazel Anticipated date of discharge: 11/15/17 Brief History from admission: This patient is a 42-year-old female with a diagnosis of bipolar disorder. She has also been diagnosed with anorexia anxiety disorder and posttraumatic stress disorder. The patient has had multiple couple admissions through our facility the last one being in September 2017. This admission was for a Tylenol overdose. The patient states that she was drunk at home and made a very poor decision taking a handful of Tylenol. She is not sure exactly how many she took. She initially was admitted to the intensive care unit and started on treatment for Tylenol overdose. She complains of having a depressed mood fatigue low energy. During the hospitalization the patient was also found to have bilateral lower lobe pneumonia and anemia and underwent an EGD. She was discharged from the psych unit and now is under my care. Family history hypertension DS: Diagnosis - Discharge Diagnosis (1) COPD exacerbation Status: Acute DS: Medications - Discharge Medications Prescriptions: budesonide-formoterol [Symbicort] 2 puff INHALATION BID #1 vial levofloxacin [Levaquin] 750 mg PO DAILY #5 tab DS: Summary Hospital Course: This is a Pleasant 42 y/o Female with Bipolar disorder, Anorexia, Anxiety disorder, PTSD, recent admission due to Tylenol overdose, During the hospitalization the patient was also found to have bilateral lower lobe pneumonia and anemia and underwent an EGD. 11/14: Stable in her bedroom no nausea, vomit or diarrhea, okay to discharge discussed with Vacuum Pan Tender the patient has no insurance and not able to give her oxygen at home unless she pays for it. 11/15: discussed with patient and nurse, also with medical case manager the family is willing to pay for the Oxygen asked me to place the discharge Order, will go later today. no nausea, vomit or diarrhea improved constipation. Physical Exam Vital signs: Vital Signs 11/14/17 20:00 11/15/17 00:00 11/15/17 04:00 Temperature 98.1 F 98 F 98 F Pulse Rate 83 70 65 Respiratory Rate 16 16 16 Blood Pressure 101/52 L 108/62 95/55 L Pulse Oximetry 100 97 95 11/15/17 05:24 11/15/17 08:00 11/15/17 09:36 Temperature 97.1 F L Pulse Rate 69 57 L 66 Respiratory Rate 16 Blood Pressure 108/59 L Pulse Oximetry 99 11/15/17 12:00 Temperature 98.1 F Pulse Rate 70 Respiratory Rate 16 Blood Pressure 94/51 L Pulse Oximetry 96 Intake & Output 11/14/17 11/15/17 11/15/17 18:59 06:59 18:59 Intake Total 600 / 600 480 / 480 150 / 150 Balance 600 / 600 480 / 480 150 / 150 Intake: IV 150 / 150 150 / 150 Levaquin 750 mg Premix Inj 150 150 / 150 150 / 150 ML @ 100 mls/hr IV.SIG Q24H [facility] Rx#:[id number] Oral 450 / 450 480 / 480 Other: # Voids 2 3 Date of Last Bowel Movement 11/10/17 11/14/17 11/14/17 # Bowel Movements 1 Results - Labs CBC & Chem 7: 11/13/17 05:40 11/13/17 05:40 Assessment and Plan - Plan This patient is a 42-year-old female with a diagnosis of bipolar disorder. She has also been diagnosed with anorexia anxiety disorder and posttraumatic stress disorder. The patient has had multiple couple admissions through our facility the last one being in September 2017. This admission was for a Tylenol overdose. The patient states that she was drunk at home and made a very poor decision taking a handful of Tylenol. She is not sure exactly how many she took. She initially was admitted to the intensive care unit and started on treatment for Tylenol overdose. She complains of having a depressed mood fatigue low energy. During the hospitalization the patient was also found to have bilateral lower lobe pneumonia and anemia and underwent an EGD. She was discharged from the psych unit and now is under my care. 1. Sepsis secondary to bilateral lower lobe pneumonia. 2. Acute hypoxic respiratory failure secondary to #1 Patient is currently on 2 L of supplemental oxygen. We attempted to titrate her off of supplements oxygen however the patient began to desat into the mid 80s on ambulation. Continue IV antibiotics. We will continue IV antibiotics for today. Blood cultures are negative. Continue breathing treatments as needed. PT evaluation. Okay to discharge patient but not possible to give oxygen she will need to pay for it. 3. Anorexia Patient was counseled on the dangers of anorexia including severe electrolyte abnormalities. Ensure 3 times daily Patient states that she has been having difficulties with anorexia since the age of 14. Patient will continue to follow-up with her psychiatrist outpatient after discharge. 4. Costochondritis Patient has some chest wall pain which has improved somewhat with pain medications. Continue tramadol. 5. Anemia No change in the patients plan for her anemia. The patient already underwent EGD which did not show any significant findings for bleeding. Hemoglobin is currently at 8 and seems to be fluctuating between 8 and 9.5. We will follow-up in a.m. CBC. If there is no significant change in the patient's hemoglobin level this can be worked up outpatient after discharge. No signs of active bleeding as of now.We will continue to monitor the patients vitals and labs for changes in hgb. 6. Constipation Improved. Patient is ambulatory. relatives willing to pay for the oxygen okay to discharge Home. now Code Status: Full code. Discussed Condition With: Patient and Nurse. and medical case manager Discharge Planning: discharge home now. - Time Spent with Patient Total time spent providing and/or coordinating discharge services: Greater than 30 minutes Exam Vital signs: Vital Signs 11/14/17 20:00 11/15/17 00:00 11/15/17 04:00 Temperature 98.1 F 98 F 98 F Pulse Rate 83 70 65 Respiratory Rate 16 16 16 Blood Pressure 101/52 L 108/62 95/55 L Pulse Oximetry 100 97 95 11/15/17 05:24 11/15/17 08:00 11/15/17 09:36 Temperature 97.1 F L Pulse Rate 69 57 L 66 Respiratory Rate 16 Blood Pressure 108/59 L Pulse Oximetry 99 11/15/17 12:00 Temperature 98.1 F Pulse Rate 70 Respiratory Rate 16 Blood Pressure 94/51 L Pulse Oximetry 96 Intake & Output 11/14/17 11/15/17 11/15/17 18:59 06:59 18:59 Intake Total 600 / 600 480 / 480 150 / 150 Balance 600 / 600 480 / 480 150 / 150 Intake: IV 150 / 150 150 / 150 Levaquin 750 mg Premix Inj 150 150 / 150 150 / 150 ML @ 100 mls/hr IV.SIG Q24H [facility] Rx#:[id number] Oral 450 / 450 480 / 480 Other: # Voids 2 3 Date of Last Bowel Movement 11/10/17 11/14/17 11/14/17 # Bowel Movements 1 Narrative: General patient in no acute distress, she appears cachectic HEENT extraocular movements are intact, clear oropharyngeal mucosa, no JVD Cardiovascular S1-S2 audible, RRR, no murmurs rubs or gallops Respiratory decreased breath sounds bilateral, no wheezing or crackles. Abdomen soft, nontender, nondistended, normal bowel sounds Extremities no edema 2+ distal pulses in bilateral upper and lower extremities Neuro no neurological deficits Results Procedures completed during hospitalization: None Discharge Plan - Discharge Disposition Patient Disposition: 01 Discharge Home - Discharge Condition Condition: Stable - Discharge Order Discharge Orders: Discharge Order (Routine); Ordered 11/15/17 Ordered By: Florian Hazel - Discharge Details Anticipated Discharge Date: 11/15/17 Discharge Comment: follow with PCP in three days. - Physicians Team Primary Care Provider: UNKNOWN, Attending Provider: Florian Hazel - Rxs /Orders / Referrals /Forms Prescriptions: New budesonide-formoterol [Symbicort] 160-4.5 mcg/actuation Hfa Aerosol Inhaler 2 puff INHALATION BID Qty: 1 RF: 0 levofloxacin [Levaquin] 750 mg Tablet 750 mg PO DAILY Qty: 5 RF: 0 Continue fluoxetine [Prozac] 40 mg Capsule 80 mg PO DAILY gabapentin 300 mg Capsule 300 mg PO TID hydroxyzine HCl 25 mg Tablet 25 mg PO TID PRN (Reason: no PRN) lurasidone [Latuda] 40 mg Tablet 40 mg PO DAILY pantoprazole [Protonix] 40 mg Tablet,Delayed Release (Dr/Ec) 40 mg PO BID trazodone 100 mg Tablet 250 mg PO HS Ambulatory Orders / Order Sets / DME: Oxygen Tank (2 liter) (Routine) Location: Determined by Patient Ordered By: Florian Hazel Referrals: Primary Care Bianka Mcgarry [Family Provider] - See Instructions (ZAOZAO [phone] [place] [address] *[facility] offers same day APPT. Call the morning you would like to be seen office opens at 8:00am ) UNKNOWN, [Primary Care Provider] - See Instructions - Discharge Instructions Patient Printed Instructions: Levofloxacin (By mouth), Viral Pneumonia (GEN), Using Oxygen at Home (GEN) Additional Instructions: [employer] supplied oxygen phone [phone]
== END 2017-11-15 16:51 | disposition home or self-care (01) ==
LOC: N07 19:37
PROVIDERS: ADMIT Internal Medicine; ATTEND Internal Medicine